=== PATIENT | female | born 1950 | race Caucasian/White ===

== ENCOUNTER 2016-10-23 23:12 | Emergency (ER) | payer MEDICARE ==
--- NOTE | 2016-10-23 23:32 | ER Document Report ---
ED Cardiac - General Chief Complaint: Palpitations Stated Complaint: POSSIBLE HEART PALPITATIONS Notes: Patient is a 66 year old female who presents with complaint of rapid heart rate. She has a history of atrial fibrillation. She takes Cardizem, sotalol, and Xarelto. She's all her medications today except for her evening dose sotalol. She felt like her heart was racing therefore called the ambulance. When the ambulance arrived her rate was in the 160s but slowly started to down trend on its own. No medications given row other than normal saline. She has no fevers. No recent infections. She denies any chest pain. She has slight dizziness. She is feeling improved now compared to what she is feeling earlier. No other complaints at this time. TRAVEL OUTSIDE OF THE [place] IN LAST 30 DAYS: No - Related Data Allergies/Adverse Reactions: Sulfa (Sulfonamide Antibiotics) Allergy (Verified 12/01/14 10:59) RASH Past Medical History - Social History Smoking Status: Unknown if Ever Smoked Frequency of alcohol use: None Drug Abuse: None Family History: Reviewed & Not Pertinent - Past Medical History Cardiac Medical History: Reports: Hx Hypertension Denies: Hx Heart Attack Pulmonary Medical History: Denies: Hx Asthma Neurological Medical History: Denies: Hx Cerebrovascular Accident, Hx Seizures GI Medical History: Reports: Hx Hiatal Hernia. Denies: Hx Hepatitis, Hx Ulcer Infectious Medical History: Denies: Hx Hepatitis Past Surgical History: Reports: Hx Hysterectomy. Denies: Hx Mastectomy, Hx Open Heart Surgery, Hx Pacemaker Review of Systems - Review of Systems Notes: My Normal Review Basic REVIEW OF SYSTEMS: CONSTITUTIONAL : Denies fever, chills, or sweats. Denies recent illness. EENT: Denies eye, ear, throat, or mouth pain or symptoms. Denies nasal or sinus congestion. Cardiac: Rapid heart rate. No chest pain. RESPIRATORY: Denies cough, cold, or chest congestion. Denies shortness of breath, difficulty breathing, or wheezing. GASTROINTESTINAL: Denies abdominal pain. Denies nausea, vomiting, or diarrhea. Denies constipation. Last BM: MUSCULOSKELETAL: Denies neck or back pain or joint pain or swelling. SKIN: Denies rash or skin lesions. NEUROLOGICAL: Denies altered mental status or loss of consciousness. Denies headache. Denies weakness or paralysis or loss of use of either side. Denies problems with gait or speech. Denies sensory or motor loss. ALL OTHER SYSTEMS REVIEWED AND NEGATIVE. Physical Exam - Vital signs Vitals: Resp BP Pulse Ox 17 136/65 H 95 10/23/16 23:38 10/23/16 23:38 10/23/16 23:38 - Notes Notes: General Appearance: Well nourished, alert, cooperative, no acute distress, no obvious discomfort. Well-appearing. Vitals: reviewed, See vital signs table. Head: no swelling or tenderness to the head Eyes: PERRL, EOMI, Conjuctiva clear Mouth: No decreasd moisture Neck: Supple, no neck tenderness, No thyromegaly Lungs: No wheezing, No rales, No rhonci, No accessory muscle use, good air exchange bilaterally. Heart: Rapid rate, irregular rythm, No murmur, no rub Abdomen: Normal BS, soft, No rigidity, No abdominal tenderness, No guarding, no rebound, no abdominal masses, no organomegaly Extremities: strength 5/5 in all extremities, good pulses in all extremities, no swelling or tenderness in the extremities, no edema. Skin: warm, dry, appropriate color, no rash Neuro: speech clear, oriented x 3, normal affect, responds appropriately to questions. Course - Re-evaluation Re-evalutation: 10/23/16 23:32 I gave the patient her dose of sotalol 80 mg and was to 11 PM. 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 10/24/16 01:23 Patient's heart rate is now down to 100. We will continue to monitor and make sure it continues to decrease properly without causing her any complications. - Vital Signs Vital signs: Temp Pulse Resp BP Pulse Ox 17 121/70 94 10/24/16 03:01 10/24/16 03:01 10/24/16 03:01 - Laboratory Result Diagrams: 10/24/16 00:21 10/24/16 00:21 Laboratory results interpreted by me: 10/24/16 10/24/16 00:21 00:21 RDW 21.0 H Carbon Dioxide 21 L Glucose 124 H Creatine Kinase 24 L - EKG Interpretation by Me Additional EKG results interpreted by me: 10/24/16 00:01 EKG is reviewed and interpreted by me. EKG shows A. fib with RVR with rate [address] segment elevation or depression. No ischemic T wave inversions. QRS duration QTC intervals are within normal range. No old EKG available for comparison. 10/24/16 03:50 EKG #2 is reviewed and interpreted by me. EKG shows A. fib with a rate of [address] segment elevation or depression. No ischemic T wave inversions. QRS duration is within normal range. QTC interval is slightly prolonged. - Transfer of Care Notes: 10/24/16 03:59 Patient will be discharged home. Her rate has now been controlled for several hours. Her heart rate is in the 80s to low 90s. She feels well patient's no chest pain. She looks well. Patient encouraged to take her medications as prescribed. Patient encouraged return to ER medially chest chest pain, recurrent fast heart rate, difficulty breathing, or she feels unwell. Patient agrees with plan will be discharged home. Discharge - Discharge Clinical Impression: Atrial fibrillation Qualifiers: Atrial fibrillation type: chronic Qualified Code(s): I48.2 - Chronic atrial fibrillation Condition: Good Disposition: HOME, SELF-CARE Additional Instructions: Please return to ER immediately if you have recurrence of fast heart rate, any chest pain, recurrent dizziness, difficulty breathing, or feel unwell. Please follow up closely with your primary care doctor in the next 2-3 days. Please take your medications as prescribed.
[2016-10-24 00:39] LABS: ABSOLUTE LYMPHOCYTES (AUTO) 1.1 10^3/uL (0.5-4.7); ABSOLUTE MONOCYTES (AUTO) 0.7 10^3/uL (0.1-1.4); ABSOLUTE NEUT (AUTO) 6.4 10^3/uL (1.7-8.2); BASOPHILS % (AUTO) 0.5 % (0-2); EOSINOPHILS % (AUTO) 0.2 % (0-6); HEMATOCRIT 43.1 % (36.0-47.0); HEMOGLOBIN 13.8 g/dL (12.0-15.5); HGB HCT DIFFERENCE -1.7; LYMPHOCYTES % (AUTO) 13.3 % (13-45); MEAN CORPUSCULAR HEMOGLOBIN 28.4 pg (27.0-33.4); MEAN CORPUSCULAR HGB CONC 32.1 g/dL (32.0-36.0); MEAN CORPUSCULAR VOLUME 88 fl (80-97); MONOCYTES % (AUTO) 8.7 % (3-13); RED BLOOD COUNT 4.87 10^6/uL (3.72-5.28); SEGMENTED NEUTROPHILS % (AUTO) 77.3 % (42-78); WHITE BLOOD COUNT 8.3 10^3/uL (4.0-10.5)
[2016-10-24 00:48] LABS: ALANINE AMINOTRANSFERASE 26 U/L (9-52); ALKALINE PHOSPHATASE 70 U/L (38-126); ANION GAP 18 (5-19); ASPARTATE AMINO TRANSFERASE 22 U/L (14-36); BILIRUBIN,TOTAL 0.5 mg/dL (0.2-1.3); BLOOD UREA NITROGEN 9 mg/dL (7-20); CARBON DIOXIDE 21 mmol/L (22-30); CHLORIDE 105 mmol/L (98-107); CREATINE KINASE 24 U/L (30-135); CREATININE RESULT 0.56 mg/dL (0.52-1.25); GLUCOSE 124 mg/dL (75-110); MAGNESIUM 1.8 mg/dL (1.6-2.3); POTASSIUM 3.8 mmol/L (3.6-5.0); SODIUM 143.9 mmol/L (137-145); TOTAL PROTEIN 6.6 g/dL (6.3-8.2)
[2016-10-24 00:59] LABS: CREATINE KINASE MB 0.56 ng/mL (<4.55)
[2016-10-24 01:11] LABS: TROPONIN I 0.035 ng/mL
[2016-10-24] MEDS ORDERED: METOPROLOL TARTRATE PF/INJ 5 MG/5 ML SDV IV ONE ×2 (02:12)
[2016-10-24] MEDS ORDERED: ONDANSETRON HCL INJ/PF 4 MG/2 ML SDV IV ONE (03:18)
[2016-10-24 05:46] VITALS: BP 111/70
--- NOTE | 2016-10-24 08:29 | EKG REPORT ---
SEVERITY:- ABNORMAL ECG - ATRIAL FIBRILLATION BORDERLINE LEFT AXIS DEVIATION : Confirmed by: Vish Farmer MD 24-Oct-2016 08:28:44
--- NOTE | 2016-10-24 08:29 | EKG REPORT ---
SEVERITY:- ABNORMAL ECG - ATRIAL FIBRILLATION, V-RATE 63-128 BORDERLINE LEFT AXIS DEVIATION LOW VOLTAGE IN FRONTAL LEADS DIFFUSE NONSPECIFIC ST-T CHANGES : Confirmed by: Vish Farmer MD 24-Oct-2016 08:28:27
== END 2016-10-24 05:49 | disposition home or self-care (01) ==
LOC: ER 23:12
DX: I48.2 Chronic atrial fibrillation (principal); R00.2 Palpitations; I10 Essential (primary) hypertension; Z79.02 Long term (current) use of antithrombotics/antiplatelets; Z88.2 Allergy status to sulfonamides; Z90.710 Acquired absence of both cervix and uterus
CPT/HCPCS: 93005 ×2; 96376; 99285; 96374; 96375; 36415; 82553; 82550; 83735; 85025; 80053; 84484; 71010; 93010 ×2; J3490; J2405

== ENCOUNTER → 2017-02-26 | Outpatient (CLI) | payer MEDICARE ==
[2017-02-26 14:17] LABS: HEMATOCRIT 43.4 % (36.0-47.0); HGB HCT DIFFERENCE -1.4; MEAN CORPUSCULAR HEMOGLOBIN 29.9 pg (27.0-33.4); MEAN CORPUSCULAR HGB CONC 32.2 g/dL (32.0-36.0); MEAN CORPUSCULAR VOLUME 93 fl (80-97); RED BLOOD COUNT 4.69 10^6/uL (3.72-5.28); RED CELL DISTRIBUTION WIDTH 15.6 % (11.5-14.0); WHITE BLOOD COUNT 5.2 10^3/uL (4.0-10.5)
== END ==
LOC: OD 13:09
PROVIDERS: ATTEND Urology
DX: Z01.812 Encounter for preprocedural laboratory examination (principal); N20.0 Calculus of kidney
CPT/HCPCS: 36415; 85027; 85610; 85730

== ENCOUNTER 2019-08-05 04:43 | Inpatient (IN) | payer MEDICARE, MEDICAID ==
[2019-08-05] MEDS ORDERED: ONDANSETRON HCL INJ/PF 4 MG/2 ML SDV IV ONE (05:00)
[2019-08-05] MEDS ORDERED: ACETAMINOPHEN 325 MG TABLET PO ONE (05:14)
[2019-08-05 05:32] LABS: HEMATOCRIT 39.1 % (36.0-47.0); HEMOGLOBIN 12.7 g/dL (12.0-15.5); MEAN CORPUSCULAR HEMOGLOBIN 28.6 pg (27.0-33.4); MEAN CORPUSCULAR HGB CONC 32.4 g/dL (32.0-36.0); MEAN CORPUSCULAR VOLUME 88 fl (80-97); PLATELET COUNT 184 10^3/uL (150-450); RED BLOOD COUNT 4.43 10^6/uL (3.72-5.28); RED CELL DISTRIBUTION WIDTH 16.3 % (11.5-14.0); WHITE BLOOD COUNT 8.8 10^3/uL (4.0-10.5)
[2019-08-05 05:52] LABS: ABSOLUTE LYMPHOCYTES# (MANUAL) 0.4 10^3/uL (0.5-4.7); ABSOLUTE MONOCYTES # (MANUAL) 0.2 10^3/uL (0.1-1.4); ALBUMIN 3.4 g/dL (3.5-5.0); ALKALINE PHOSPHATASE 72 U/L (38-126); ANION GAP 12 (5-19); ASPARTATE AMINO TRANSFERASE 82 U/L (14-36); BAND NEUTROPHILS % (MANUAL) 4 % (3-5); BASOPHILS % (MANUAL) 0 % (0-2); BILIRUBIN,DIRECT 0.3 mg/dL (0.0-0.4); BILIRUBIN,TOTAL 1.1 mg/dL (0.2-1.3); BLOOD UREA NITROGEN 10 mg/dL (7-20); CALCIUM 9.2 mg/dL (8.4-10.2); CARBON DIOXIDE 28 mmol/L (22-30); CHLORIDE 100 mmol/L (98-107); EOSINOPHILS % (MANUAL) 0 % (0-6); GLUCOSE 85 mg/dL (75-110); LYMPHOCYTES % (MANUAL) 4 % (13-45); MONOCYTES % (MANUAL) 2 % (3-13); POTASSIUM 3.6 mmol/L (3.6-5.0); SEGMENTED NEUTROPHILS % (MAN) 90 % (42-78); TOTAL CELLS COUNTED 100; TOTAL PROTEIN 6.2 g/dL (6.3-8.2)
[2019-08-05 05:53] LABS: ANISOCYTOSIS 1+; PLATELET COMMENT ADEQUATE; TOXIC GRANULATION SLIGHT; TOXIC VACUOLATION PRESENT
[2019-08-05 08:04] LABS: APPEARANCE,URINE SLIGHTLY-CLOUDY; BILIRUBIN,URINE NEGATIVE (NEGATIVE); COLOR,URINE YELLOW; GLUCOSE, URINE NEGATIVE (NEGATIVE); KETONES,URINE TRACE mg/dL (NEGATIVE); LEUKOCYTE ESTERASE,URINE SMALL (NEGATIVE); NITRITE,URINE NEGATIVE (NEGATIVE); PROTEIN,URINE 30 mg/dL (NEGATIVE); URINE SPECIFIC GRAVITY 1.016
--- NOTE | 2019-08-05 09:21 | RADIOLOGY REPORT (SQ) ---
EXAM DESCRIPTION: U/S ABDOMEN LIMITED W/O DOP COMPLETED DATE/TIME: 08/05/2019 8:58 am REASON FOR STUDY: RUQ abd pain COMPARISON: None. TECHNIQUE: Dynamic and static grayscale images acquired of the abdomen and recorded on PACS. Additio nal selected color Doppler and spectral images recorded. LIMITATIONS: Limited exam secondary to body habitus. FINDINGS: PANCREAS: No masses. Visualized pancreatic duct normal caliber. LIVER: No focal lesions. Increased echogenicity with decreased visualization of the portal triads. LIVER VASCULATURE: Normal directional flow of the main portal vein. Hepatic veins not well seen. GALLBLADDER: Cholelithiasis. No wall thickening or pericholecystic fluid. ULTRASOUND-DETECTED ALLRED'S SIGN: Negative. INTRAHEPATIC DUCTS AND COMMON DUCT: CBD measures 11 mm. No visualized intrahepatic ductal dilation. INFERIOR VENA CAVA: Not well seen. AORTA: Not well visualized. RIGHT KIDNEY: Normal size measuring 11.7 cm. There is a exophytic simple cyst off the upper pole me asuring up to 5.3 cm. No solid or suspicious masses. No hydronephrosis. No calcifications. PERITONEAL AND RIGHT PLEURAL SPACE: No ascites or effusions. OTHER: No other significant findings. IMPRESSION: Limited exam secondary to body habitus and bowel gas. 1. Cholelithiasis with dilated CBD measuring up to 11 mm. No definite intrahepatic ductal dilation. Findings suggestive of choledocholithiasis. Recommend correlation with LFTs for evidence of biliar y obstruction. MRCP or ERCP could be considered for further confirmation. 2. Hepatic steatosis. TECHNICAL DOCUMENTATION: JOB ID: [id number] [employer]- All Rights Reserved Reading location - IP/workstation name: [email or web address]
[2019-08-05] MEDS ORDERED: NORMAL SALINE 1000 ML 1,000 ML IV ONE (09:47)
[2019-08-05] MEDS ORDERED: ERTAPENEM SODIUM INJ 1 GM VIAL IV ONE (09:48)
--- NOTE | 2019-08-05 10:16 | ER Document Report ---
Entered by RHYS MARQUEZ SCRIBE 08/05/19 0747 Acting as scribe for:SHIRIN REARDON MD ED General - General Chief Complaint: Back Pain Stated Complaint: BACK PAIN Time Seen by Provider: 08/05/19 06:19 Mode of Arrival: Medic Information source: Patient, [facility] Records Notes: This 69 year old female patient presents to the ED today with complaints of lower abdominal, lower back and, lower extremity pain that began when she woke up this morning. Patient reports that she has nausea. This 69-year-old female patient past medical history chronic A. fib taking Xarelto, Cardizem, and sotalol, has chronic low back pain for which she takes Ultram on an almost daily basis. She woke up this morning with severe pain in her back, thought it was her normal back pain only worse than usual. When first seen by triage this morning she had a temperature of 102.2, she received Tylenol just after 5 AM. I am seeing her at 7:35 AM and she is not febrile at this time. TRAVEL OUTSIDE OF THE [place] IN LAST 30 DAYS: No - Related Data Allergies/Adverse Reactions: Sulfa (Sulfonamide Antibiotics) Allergy (Verified 08/05/19 07:53) RASH Home Medications: lumigan eye drop bid. fioricet 1 tab q 8 hours. clacium with vit d daily. vit d3 1000u daily. cardizem cd 120mg daily. milk thistle 1 cap daily. prilosec 20mg nightly. xarelto 20mg nightly. sotalol 120mg bid. tramadol 50mg q 6 hrs prn Past Medical History - General Information source: Patient, [facility] Records - Social History Smoking Status: Never Smoker Cigarette use (# per day): No Chew tobacco use (# tins/day): No Frequency of alcohol use: 1 drink daily Drug Abuse: None Family History: Reviewed & Not Pertinent Patient has suicidal ideation: No Patient has homicidal ideation: No - Past Medical History Cardiac Medical History: Reports: Hx Atrial Fibrillation, Hx Hypertension GI Medical History: Reports: Hx Hiatal Hernia Past Surgical History: Reports: Hx Herniorrhaphy, Hx Hysterectomy, Hx Kidney (Renal Surgery) - Immunizations Hx Diphtheria, Pertussis, Tetanus Vaccination: Yes Review of Systems - Review of Systems Constitutional: No symptoms reported EENT: No symptoms reported Cardiovascular: No symptoms reported Respiratory: No symptoms reported Gastrointestinal: See HPI, Abdominal pain, Nausea Genitourinary: No symptoms reported Female Genitourinary: No symptoms reported Musculoskeletal: See HPI, Back pain, Other - leg pain Skin: No symptoms reported Hematologic/Lymphatic: No symptoms reported Neurological/Psychological: No symptoms reported -: Yes All other systems reviewed and negative Physical Exam - Vital signs Vitals: Temp Pulse Resp BP Pulse Ox 102.2 F H 95 19 139/82 H 97 08/05/19 04:48 08/05/19 04:48 08/05/19 04:48 08/05/19 04:48 08/05/19 04:48 Interpretation: Normal - General General appearance: Alert - HEENT Head: Normocephalic, Atraumatic Eyes: Normal Pupils: PERRL - Respiratory Respiratory status: No respiratory distress Chest status: Nontender Breath sounds: Normal Chest palpation: Normal - Cardiovascular Rhythm: Regular - sinus rhythm Heart sounds: Normal auscultation Murmur: No - Abdominal Inspection: Obese Distension: No distension Bowel sounds: Normal Tenderness: Tender - RUQ tenderness with palpation Organomegaly: No organomegaly - Back Back: Tender - lumbar back musculature tenderness with palpation, mostly on left side - Extremities General upper extremity: Normal inspection General lower extremity: Edema - chronic edema, pitting 2-3+, Other - erythema, warm temperature with palpation Calf: Nontender - Neurological Neuro grossly intact: Yes Cognition: Normal Orientation: AAOx4 [place] Coma Scale Eye Opening: Spontaneous [place] Coma Scale Verbal: Oriented [place] Coma Scale Motor: Obeys Commands [place] Coma Scale Total: 15 Speech: Normal Motor strength normal: LUE, RUE, LLE, RLE Sensory: Normal - Psychological Associated symptoms: Normal affect, Normal mood - Skin Skin Temperature: Warm Skin Moisture: Dry Skin Color: Normal Course - Re-evaluation Re-evalutation: 08/05/19 10:14 Patient was in a sinus rhythm with a rate of 90 during physical exam. When the decision to admit was made, I ordered an EKG, at this time she is in atrial flutter with a heart rate of 119. - Vital Signs Vital signs: Temp Pulse Resp BP Pulse Ox 98.9 F 95 25 H 107/71 95 08/05/19 06:01 08/05/19 04:48 08/05/19 11:01 08/05/19 11:01 08/05/19 11:01 - Laboratory Result Diagrams: 08/05/19 05:10 08/05/19 05:10 Laboratory results interpreted by me: 08/05/19 08/05/19 08/05/19 05:10 05:10 05:10 RDW 16.3 H Seg Neuts % (Manual) 90 H Lymphocytes % (Manual) 4 L Monocytes % (Manual) 2 L Abs Neuts (Manual) 8.3 H Abs Lymphs (Manual) 0.4 L Creatinine 0.50 L Lactic Acid (Sepsis) 2.9 H AST 82 H Total Protein 6.2 L Albumin 3.4 L Urine Protein Urine Ketones Urine Blood Urine Urobilinogen Ur Leukocyte Esterase Urine Ascorbic Acid 08/05/19 07:43 RDW Seg Neuts % (Manual) Lymphocytes % (Manual) Monocytes % (Manual) Abs Neuts (Manual) Abs Lymphs (Manual) Creatinine Lactic Acid (Sepsis) AST Total Protein Albumin Urine Protein 30 H Urine Ketones TRACE H Urine Blood MODERATE H Urine Urobilinogen 4.0 H Ur Leukocyte Esterase SMALL H Urine Ascorbic Acid 20 H - Diagnostic Test Radiology reviewed: Image reviewed - Gallbladder ultrasound is read as choledocholithiasis with cholecystitis. - EKG Interpretation by Me EKG shows normal: [place], Intervals, QRS Complexes. abnormal: ST-T Waves - Diffuse borderline T abnormalities Rate: Tachycardia - 119 Rhythm: A.Flutter [place]/QRS: Left axis deviation Voltage: Decreased voltage - Consults Dr. Olson Time consulted: 09:40 Consulted provider: will come to ER KHANH Torres Time consulted: 09:45 Consulted provider: will come to ER Discharge - Discharge Clinical Impression: Choledocholithiasis with acute cholecystitis, Atrial flutter with rapid tonya tricular response Leukocytosis Qualifiers: Leukocytosis type: bandemia Qualified Code(s): D72.825 - Bandemia Fever Qualifiers: Fever type: unspecified Qualified Code(s): R50.9 - Fever, unspecified Urinary tract infection Qualifiers: Urinary tract infection type: site unspecified Hematuria presence: with hematuria Qualified Code(s): N39.0 - Urinary tract infection, site not specified; R31.9 - Hematuria, unspecified Condition: Stable Disposition: ADMITTED INPATIENT Admitting Provider: Meseret (Hospitalist) Unit Admitted: Telemetry Scribe Attestation: 08/05/19 08:02 I personally performed the services described in the documentation, reviewed and edited the documentation which was dictated to the scribe in my presence, and it accurately records my words and actions. I personally performed the services described in the documentation, reviewed and edited the documentation which was dictated to the scribe in my presence, and it accurately records my words and actions.
[2019-08-05 10:24] LABS: CREATINE KINASE 39 U/L (30-135)
[2019-08-05] MEDS ORDERED: GLUCAGON,HUMAN RECOMB 1 MG INJ SUBCUT PRN ×2 (10:50→17:29)
[2019-08-05] MEDS ORDERED: DEXTROSE 40% GEL 15 GM TUBE PO PRN ×4 (10:50→17:29)
[2019-08-05] MEDS ORDERED: ONDANSETRON 4 MG TAB.RAPDIS PO PRN (10:50)
[2019-08-05] MEDS ORDERED: DEXTROSE 50%-WATER 25 GM/50 ML DISP.SYRIN IV PRN ×4 (10:50→17:29)
[2019-08-05] MEDS ORDERED: MAGNESIUM HYDROXIDE SUSP 30 ML UDCUP PO PRN (10:50)
--- NOTE | 2019-08-05 10:51 | RADIOLOGY REPORT (SQ) ---
EXAM DESCRIPTION: CHEST SINGLE VIEW COMPLETED DATE/TIME: 08/05/2019 10:31 am REASON FOR STUDY: Fever, acute cholecystitis COMPARISON: 10/21/2009. EXAM PARAMETERS: NUMBER OF VIEWS: One view. TECHNIQUE: Single frontal radiographic view of the chest acquired. RADIATION DOSE: NA LIMITATIONS: None. FINDINGS: LUNGS AND PLEURA: No opacities, masses or pneumothorax. No pleural effusion. MEDIASTINUM AND HILAR STRUCTURES: No masses. Contour normal. HEART AND VASCULAR STRUCTURES: Heart upper limits of normal in size. Normal vasculature. BONES: No acute findings. HARDWARE: None in the chest. OTHER: No other significant finding. IMPRESSION: NO ACUTE RADIOGRAPHIC FINDING IN THE CHEST. TECHNICAL DOCUMENTATION: JOB ID: [id number] [employer]- All Rights Reserved Reading location - IP/workstation name: [email or web address]
--- NOTE | 2019-08-05 10:56 | PDOC CONSULTATION ---
Consultation Consult Date: 08/05/19 Provider Consulted: PAUL MCGRAW Consult reason:: Gallstones History of Present Illness Admission Date/PCP: 08/05/19 10:25 SAMMY URIBE NP History of Present Illness: KAMINI FERNANDEZ is a 69 year old female with history for atrial fibrillation on Xarelto complaining of back pains and right upper quadrant pains around 2 AM today. She went to ED where ultrasound the abdomen is showed gallstones with dilated common bile duct of 11 mm. There is suspicion for choledocholithiasis. She had a previous history of hysterectomy and ventral hernia repair with mesh mesh about 5 years ago at [facility]. We will order an MRCP just to make sure there is no common bile duct stone since an intraoperative cholangiogram may take clinically be difficult because patient being obese and with to abdominal operations with his most likely will have adhesions. Past Medical History Cardiac Medical History: Reports: Atrial Fibrillation, Hypertension Denies: Myocardial Infarction Pulmonary Medical History: Denies: Asthma Neurological Medical History: Denies: Seizures GI Medical History: Reports: Hiatal Hernia Denies: Hepatitis Hematology: Denies: Anemia, Sickle Cell Disease Past Surgical History Past Surgical History: Reports: Herniorrhaphy, Hysterectomy Denies: Amputation, Mastectomy, Pacemaker Social History Smoking Status: Never Smoker Electronic Cigarette use?: No Family History Family History: Reviewed & Not Pertinent Parental Family History Reviewed: Yes Children Family History Reviewed: No Sibling(s) Family History Reviewed.: No Medication/Allergy Home Medications: Besifloxacin HCl [Besivance 0.6% Oph Susp 5 ml] 1 drop OP ASDIR 12/01/14 Calcium Carbonate/Vitamin D3 [Calcium + Vitamin D Tablet] 1 tab PO DAILY 12/01/14 Difluprednate [Durezol] 1 drop OP ASDIR 12/01/14 Diltiazem HCl [Diltiazem 24Hr Cd] 240 mg PO DAILY 12/01/14 Etodolac 400 mg PO DAILY 12/01/14 Losartan Potassium [Cozaar 50 mg Tablet] 50 mg PO DAILY 12/01/14 Nepafenac [Ilevro] 1 drop OP ASDIR PRN 12/01/14 Omeprazole [Prilosec] 20 mg PO DAILY 12/01/14 Tramadol HCl [Ultram] 50 mg PO .Q4-6 PRN 12/01/14 Sotalol HCl [Sotalol] 80 mg PO BID 01/30/15 Allergies/Adverse Reactions: Sulfa (Sulfonamide Antibiotics) Allergy (Verified 08/05/19 07:53) RASH Review of Systems Constitutional: PRESENT: as per HPI, fever(s) Cardiovascular: PRESENT: other - No chest pains no cough Gastrointestinal: PRESENT: abdominal pain, nausea Musculoskeletal: PRESENT: back pain Neurological: PRESENT: other - Walks with cane because she claims her knees are bone to bone complaining of chronic pains and takes Ultram once a day Physical Exam Vital Signs: Temp Pulse Resp BP Pulse Ox 98.9 F 95 13 130/78 H 96 08/05/19 06:01 08/05/19 04:48 08/05/19 10:01 08/05/19 10:01 08/05/19 10:01 Intake & Output 08/04/19 08/05/19 08/06/19 06:59 06:59 06:59 Weight 132.903 kg General appearance: PRESENT: morbidly obese Eye exam: PRESENT: conjunctiva pink Mouth exam: PRESENT: moist Neck exam: PRESENT: full ROM Respiratory exam: PRESENT: clear to auscultation aroldo Cardiovascular exam: PRESENT: irregular rhythm Pulses: PRESENT: normal radial pulses - But irregular Vascular exam: PRESENT: normal capillary refill GI/Abdominal exam: PRESENT: soft, tenderness - Right upper quadrant Rectal exam: PRESENT: deferred Extremities exam: PRESENT: full ROM Musculoskeletal exam: PRESENT: ambulatory - With a cane Neurological exam: PRESENT: alert, oriented to person, oriented to place, oriented to time, oriented to situation Psychiatric exam: PRESENT: appropriate affect Skin exam: PRESENT: normal color, warm Results Laboratory Results: 08/05/19 05:10 08/05/19 05:10 08/05/19 08/05/19 08/05/19 05:10 05:10 05:10 WBC 8.8 RBC 4.43 Hgb 12.7 Hct 39.1 MCV 88 MCH 28.6 MCHC 32.4 RDW 16.3 H Plt Count 184 Seg Neutrophils % Not Reportable Sodium 140.1 Potassium 3.6 Chloride 100 Carbon Dioxide 28 Anion Gap 12 BUN 10 Creatinine 0.50 L Est GFR ( Amer) > 60 Glucose 85 Calcium 9.2 Total Bilirubin 1.1 AST 82 H Alkaline Phosphatase 72 Total Protein 6.2 L Albumin 3.4 L Lipase 56.2 Urine Color Urine Appearance Urine pH Ur Specific Shepherd Urine Protein Urine Glucose (UA) Urine Ketones Urine Blood Urine Nitrite Ur Leukocyte Esterase Urine WBC (Auto) Urine RBC (Auto) 08/05/19 07:43 WBC RBC Hgb Hct MCV MCH MCHC RDW Plt Count Seg Neutrophils % Sodium Potassium Chloride Carbon Dioxide Anion Gap BUN Creatinine Est GFR ( Amer) Glucose Calcium Total Bilirubin AST Alkaline Phosphatase Total Protein Albumin Lipase Urine Color YELLOW Urine Appearance SLIGHTLY-CLOUDY Urine pH 6.0 Ur Specific Shepherd 1.016 Urine Protein 30 H Urine Glucose (UA) NEGATIVE Urine Ketones TRACE H Urine Blood MODERATE H Urine Nitrite NEGATIVE Ur Leukocyte Esterase SMALL H Urine WBC (Auto) 10 Urine RBC (Auto) 3 08/05/19 08/05/19 05:10 05:10 Creatine Kinase 39 Troponin I 0.051 Impressions: Abdomen Ultrasound 08/05/19 07:56 IMPRESSION: Limited exam secondary to body habitus and bowel gas. 1. Cholelithiasis with dilated CBD measuring up to 11 mm. No definite intrahepatic ductal dilation. Findings suggestive of choledocholithiasis. Recommend correlation with LFTs for evidence of biliary obstruction. MRCP or ERCP could be considered for further confirmation. 2. Hepatic steatosis. Assessment & Plan - Diagnosis (1) Fever Qualifiers: Fever type: unspecified Qualified Code(s): R50.9 - Fever, unspecified Is this a current diagnosis for this admission?: Yes - Time Time Spent: 30 to 50 Minutes - Inpatient Certification Medical Necessity: Need for Pain Control, Need for IV Antibiotics, Need for Surg keith - Plan Summary Plan Summary: 69-year-old female with known atrial fibrillation and hypertension on Xarelto with the last dose being last night. Complain of right back and right upper quadrant pains with nausea at around 2 AM today with fever. Her ultrasound showed gallstones with dilated common bile duct of about 11 mm suspicious for choledocholithiasis. Her LFTs are normal. Plans 1 do an MRCP since an intraoperative cholangiogram may be quite difficult to do in this morbidly obese and to abdominal operations.Likely to R/O CBD stone and avoid IOC. 2 hold Xarelto. 3. Need to wait 48 hours prior to laparoscopic cholecystectomy. And therefore will schedule this Friday 4 start IV antibiotics
[2019-08-05 11:26] LABS: INTERNATIONAL RATION (INR) 2.66; PROTHROMBIN TIME 28.9 SEC (11.4-15.4)
[2019-08-05 11:27] LABS: PARTIAL THROMBOPLASTIN TIME 41.8 SEC (23.5-35.8)
[2019-08-05 11:53] LABS: CREATINE KINASE MB 0.73 ng/mL (<4.55); TROPONIN I 0.112 ng/mL
--- NOTE | 2019-08-05 12:22 | RADIOLOGY REPORT (SQ) ---
EXAM DESCRIPTION: MRI ABDOMEN WITHOUT COMPLETED DATE/TIME: 08/05/2019 12:02 pm REASON FOR STUDY: R/O choledocholitiasis COMPARISON: Abdominal ultrasound, 08/05/2019 TECHNIQUE: Noncontrast MRCP. Source and MIP images reviewed. LIMITATIONS: None. FINDINGS: GALLBLADDER: The gallbladder is mildly distended and contains multiple dependent, irregula r gallstones. INTRAHEPATIC DUCTS: Mild intrahepatic biliary ductal dilation. EXTRAHEPATIC DUCTS: The common bile duct is dilated, measuring up to 1.1 cm in caliber. There is an elongated filling defect in the distal common bile duct concerning for one or more calculi, measuring 1.6 cm in length and 0.5 cm in caliber (series 6, image 51). PANCREAS: Generally homogeneous, no gross mass or significant signal alteration. No surrounding infl ammatory changes or fluid. Pancreatic duct is normal. LIVER, SPLEEN, KIDNEYS, ADRENALS: No significant abnormality. VESSELS: No evidence of aneurysm. Grossly appropriate flow voids in the major vascular structures. LUNG BASES: Grossly clear. OTHER: No other significant finding. IMPRESSION: 1. The common bile duct is dilated, measuring up to 1.1 cm in caliber. There is an elong ated filling defect in the distal common bile duct within the pancreatic head concerning for one or m ore calculi, measuring 1.6 cm in length and 0.5 cm in caliber (series 6, image 51). 2. Cholelithiasis with mild distention of the gallbladder. TECHNICAL DOCUMENTATION: JOB ID: [id number] [employer]- All Rights Reserved Reading location - IP/workstation name: [email or web address]
[2019-08-05] MEDS: PIPERACILLIN SODIUM/TAZOBACTAM 3.375 GM in NORMAL SALINE 100 ML IV SCH ×3 (14:11→23:22)
--- NOTE | 2019-08-05 16:46 | PDOC H&P ---
History of Present Illness Admission Date/PCP: 08/05/19 10:25 SAMMY URIBE NP History of Present Illness: KAMINI FERNANDEZ is a 69 year old female acute back pain and acute abdominal pain.. Patient states that she was awakened this morning at 0200 with severe back pain that went to her right upper quadrant abdomen. She tells me that she knows she has had gallstones because she had an ultrasound at [facility] within the last 5 years, she is never seen a surgeon before. She states that she would have 1 or 2 attacks per year of right upper quadrant abdominal pain probably secondary to her gall stone. Last night and this morning however it was much more severe Patient states that she has had nausea but no vomiting. Also last night in the emergency room she had a temperature of 102.2 Patient's past medical history involves chronic atrial fib for which she is on Xarelto Cardizem and sotalol. She also has chronic back pain which she takes Ultram daily. Patient states she had an abdominal hernia repaired about 5 years ago at [facility] in [place]. Patient states she asked the surgeon at that time if he could also address her gallbladder issues. Past Medical History Cardiac Medical History: Reports: Atrial Fibrillation, Hypertension Denies: Myocardial Infarction Pulmonary Medical History: Denies: Asthma Neurological Medical History: Denies: Seizures GI Medical History: Reports: Hiatal Hernia Denies: Hepatitis Hematology: Denies: Anemia, Sickle Cell Disease Past Surgical History Past Surgical History: Reports: Herniorrhaphy, Hysterectomy Denies: Amputation, Mastectomy, Pacemaker Social History Smoking Status: Never Smoker Electronic Cigarette use?: No - Advance Directive Resuscitation Status: Full Code Family History Family History: Reviewed & Not Pertinent Parental Family History Reviewed: No Children Family History Reviewed: No Sibling(s) Family History Reviewed.: No Medication/Allergy Home Medications: Besifloxacin HCl [Besivance 0.6% Oph Susp 5 ml] 1 drop OP ASDIR 12/01/14 Calcium Carbonate/Vitamin D3 [Calcium + Vitamin D Tablet] 1 tab PO DAILY 12/01/14 Difluprednate [Durezol] 1 drop OP ASDIR 12/01/14 Diltiazem HCl [Diltiazem 24Hr Cd] 240 mg PO DAILY 12/01/14 Etodolac 400 mg PO DAILY 12/01/14 Losartan Potassium [Cozaar 50 mg Tablet] 50 mg PO DAILY 12/01/14 Nepafenac [Ilevro] 1 drop OP ASDIR PRN 12/01/14 Omeprazole [Prilosec] 20 mg PO DAILY 12/01/14 Tramadol HCl [Ultram] 50 mg PO .Q4-6 PRN 12/01/14 Sotalol HCl [Sotalol] 80 mg PO BID 01/30/15 Allergies/Adverse Reactions: Sulfa (Sulfonamide Antibiotics) Allergy (Verified 08/05/19 07:53) RASH Review of Systems Constitutional: ABSENT: chills, fever(s), headache(s), weight gain, weight loss Cardiovascular: ABSENT: chest pain, dyspnea on exertion, edema, orthropnea, palpitations Respiratory: ABSENT: cough, hemoptysis Gastrointestinal: PRESENT: abdominal pain, nausea Neurological: ABSENT: abnormal gait, abnormal speech, confusion, dizziness, focal weakness, syncope Psychiatric: ABSENT: anxiety, depression, homidical ideation, suicidal ideation Physical Exam Vital Signs: Temp Pulse Resp BP Pulse Ox 98.7 F 82 20 106/69 95 08/05/19 12:47 08/05/19 12:47 08/05/19 12:47 08/05/19 12:47 08/05/19 12:47 Intake & Output 08/04/19 08/05/19 08/06/19 06:59 06:59 06:59 Intake Total 63 Balance 63 Weight 132.903 kg 131.9 kg General appearance: PRESENT: mild distress, other - Can Adria to abdominal pain Respiratory exam: PRESENT: clear to auscultation aroldo. ABSENT: rales, rhonchi, wheezes Cardiovascular exam: PRESENT: RRR. ABSENT: diastolic murmur, rubs, systolic murmur GI/Abdominal exam: PRESENT: diminished bowel sounds, soft, tenderness - Right upper quadrant of the abdomen and epigastric region Neurological exam: PRESENT: alert, awake, oriented to person, oriented to place, oriented to time, oriented to situation, CN II-XII grossly intact. ABSENT: motor sensory deficit Psychiatric exam: PRESENT: appropriate affect, normal mood. ABSENT: homicidal ideation, suicidal ideation Results Laboratory Results: 08/05/19 05:10 08/05/19 05:10 08/05/19 08/05/19 08/05/19 05:10 05:10 05:10 WBC 8.8 RBC 4.43 Hgb 12.7 Hct 39.1 MCV 88 MCH 28.6 MCHC 32.4 RDW 16.3 H Plt Count 184 Seg Neutrophils % Not Reportable Sodium 140.1 Potassium 3.6 Chloride 100 Carbon Dioxide 28 Anion Gap 12 BUN 10 Creatinine 0.50 L Est GFR ( Amer) > 60 Glucose 85 Lactic Acid Calcium 9.2 Magnesium Total Bilirubin 1.1 AST 82 H Alkaline Phosphatase 72 Total Protein 6.2 L Albumin 3.4 L Lipase 56.2 TSH Urine Color Urine Appearance Urine pH Ur Specific [place] Urine Protein Urine Glucose (UA) Urine Ketones Urine Blood Urine Nitrite Ur Leukocyte Esterase Urine WBC (Auto) Urine RBC (Auto) 08/05/19 08/05/19 08/05/19 07:43 10:59 10:59 WBC RBC Hgb Hct MCV MCH MCHC RDW Plt Count Seg Neutrophils % Sodium Potassium Chloride Carbon Dioxide Anion Gap BUN Creatinine Est GFR ( Amer) Glucose Lactic Acid 1.2 Calcium Magnesium Total Bilirubin AST Alkaline Phosphatase Total Protein Albumin Lipase TSH 1.69 Urine Color YELLOW Urine Appearance SLIGHTLY-CLOUDY Urine pH 6.0 Ur Specific [place] 1.016 Urine Protein 30 H Urine Glucose (UA) NEGATIVE Urine Ketones TRACE H Urine Blood MODERATE H Urine Nitrite NEGATIVE Ur Leukocyte Esterase SMALL H Urine WBC (Auto) 10 Urine RBC (Auto) 3 08/05/19 10:59 WBC RBC Hgb Hct MCV MCH MCHC RDW Plt Count Seg Neutrophils % Sodium Potassium Chloride Carbon Dioxide Anion Gap BUN Creatinine Est GFR ( Amer) Glucose Lactic Acid Calcium Magnesium 1.5 L Total Bilirubin AST Alkaline Phosphatase Total Protein Albumin Lipase TSH Urine Color Urine Appearance Urine pH Ur Specific [place] Urine Protein Urine Glucose (UA) Urine Ketones Urine Blood Urine Nitrite Ur Leukocyte Esterase Urine WBC (Auto) Urine RBC (Auto) 08/05/19 08/05/19 08/05/19 05:10 05:10 10:59 Creatine Kinase 39 CK-MB (CK-2) 0.73 Troponin I 0.051 0.112 Impressions: Abdomen MRI 08/05/19 00:00 IMPRESSION: 1. The common bile duct is dilated, measuring up to 1.1 cm in caliber. There is an elongated filling defect in the distal common bile duct within the pancreatic head concerning for one or more calculi, measuring 1.6 cm in length and 0.5 cm in caliber (series 6, image 51). 2. Cholelithiasis with mild distention of the gallbladder. Abdomen Ultrasound 08/05/19 07:56 IMPRESSION: Limited exam secondary to body habitus and bowel gas. 1. Cholelithiasis with dilated CBD measuring up to 11 mm. No definite intrahepatic ductal dilation. Findings suggestive of choledocholithiasis. Recommend correlation with LFTs for evidence of biliary obstruction. MRCP or ERCP could be considered for further confirmation. 2. Hepatic steatosis. Chest X-Ray 08/05/19 09:57 IMPRESSION: NO ACUTE RADIOGRAPHIC FINDING IN THE CHEST. Assessment and Plan - Diagnosis (1) Abdominal pain Is this a current diagnosis for this admission?: Yes (2) Obesity Is this a current diagnosis for this admission?: Yes (3) Chronic low back pain Is this a current diagnosis for this admission?: Yes (4) Atrial flutter with rapid ventricular response Is this a current diagnosis for this admission?: Yes (5) Calculus of common bile duct with acute cholecystitis Is this a current diagnosis for this admission?: Yes (6) Fever Qualifiers: Fever type: unspecified Qualified Code(s): R50.9 - Fever, unspecified Is this a current diagnosis for this admission?: Yes - Plan Summary Summary: 08/05/2019 She has been seen by general surgery and feels that a MRCP needs to be done. We will also hold her Xarelto since she is a surgical candidate, was 48 hours. The antibiotics will be given. Patient's chronic atrial fib/flutter will be controlled. I explained all this to the patient. Diet will be regulated by general surgery. She is medically stable to transfer to the floor - Time Time Spent with patient: 35 or more minutes
--- NOTE | 2019-08-05 17:00 | EKG REPORT ---
SEVERITY:- ABNORMAL ECG - ATRIAL FLUTTER, A-RATE 294 BORDERLINE LEFT AXIS DEVIATION LOW VOLTAGE IN FRONTAL LEADS BORDERLINE T ABNORMALITIES, DIFFUSE LEADS : Confirmed by: Vish Farmer MD 05-Aug-2019 16:59:23
[2019-08-05 17:30] LABS: CREATINE KINASE MB 1.07 ng/mL (<4.55); TROPONIN I 0.062 ng/mL
--- NOTE | 2019-08-05 17:37 | PDOC PROGRESS REPORT ---
Subjective Progress Note for:: 08/05/19 Reason For Visit: ABDOMINAL PAIN,CHRONIC AFIB,CHOLEDOCHOLITHIASIS Physical Exam Vital Signs: Temp Pulse Resp BP Pulse Ox 98.4 F 69 18 117/60 95 08/05/19 14:50 08/05/19 14:50 08/05/19 14:50 08/05/19 14:50 08/05/19 14:50 Intake & Output 08/04/19 08/05/19 08/06/19 06:59 06:59 06:59 Intake Total 163 Balance 163 Weight 132.903 kg 131.9 kg Exam: Tenderness of the right upper quadrant Results Laboratory Results: 08/05/19 05:10 08/05/19 05:10 08/05/19 08/05/19 08/05/19 05:10 05:10 05:10 WBC 8.8 RBC 4.43 Hgb 12.7 Hct 39.1 MCV 88 MCH 28.6 MCHC 32.4 RDW 16.3 H Plt Count 184 Seg Neutrophils % Not Reportable Sodium 140.1 Potassium 3.6 Chloride 100 Carbon Dioxide 28 Anion Gap 12 BUN 10 Creatinine 0.50 L Est GFR ( Amer) > 60 Glucose 85 Lactic Acid Calcium 9.2 Magnesium Total Bilirubin 1.1 AST 82 H Alkaline Phosphatase 72 Total Protein 6.2 L Albumin 3.4 L Lipase 56.2 TSH Urine Color Urine Appearance Urine pH Ur Specific [place] Urine Protein Urine Glucose (UA) Urine Ketones Urine Blood Urine Nitrite Ur Leukocyte Esterase Urine WBC (Auto) Urine RBC (Auto) 08/05/19 08/05/19 08/05/19 07:43 10:59 10:59 WBC RBC Hgb Hct MCV MCH MCHC RDW Plt Count Seg Neutrophils % Sodium Potassium Chloride Carbon Dioxide Anion Gap BUN Creatinine Est GFR ( Amer) Glucose Lactic Acid 1.2 Calcium Magnesium Total Bilirubin AST Alkaline Phosphatase Total Protein Albumin Lipase TSH 1.69 Urine Color YELLOW Urine Appearance SLIGHTLY-CLOUDY Urine pH 6.0 Ur Specific [place] 1.016 Urine Protein 30 H Urine Glucose (UA) NEGATIVE Urine Ketones TRACE H Urine Blood MODERATE H Urine Nitrite NEGATIVE Ur Leukocyte Esterase SMALL H Urine WBC (Auto) 10 Urine RBC (Auto) 3 08/05/19 10:59 WBC RBC Hgb Hct MCV MCH MCHC RDW Plt Count Seg Neutrophils % Sodium Potassium Chloride Carbon Dioxide Anion Gap BUN Creatinine Est GFR ( Amer) Glucose Lactic Acid Calcium Magnesium 1.5 L Total Bilirubin AST Alkaline Phosphatase Total Protein Albumin Lipase TSH Urine Color Urine Appearance Urine pH Ur Specific [place] Urine Protein Urine Glucose (UA) Urine Ketones Urine Blood Urine Nitrite Ur Leukocyte Esterase Urine WBC (Auto) Urine RBC (Auto) 08/05/19 08/05/19 08/05/19 05:10 05:10 10:59 Creatine Kinase 39 CK-MB (CK-2) 0.73 Troponin I 0.051 0.112 Impressions: Abdomen MRI 08/05/19 00:00 IMPRESSION: 1. The common bile duct is dilated, measuring up to 1.1 cm in caliber. There is an elongated filling defect in the distal common bile duct within the pancreatic head concerning for one or more calculi, measuring 1.6 cm in length and 0.5 cm in caliber (series 6, image 51). 2. Cholelithiasis with mild distention of the gallbladder. Abdomen Ultrasound 08/05/19 07:56 IMPRESSION: Limited exam secondary to body habitus and bowel gas. 1. Cholelithiasis with dilated CBD measuring up to 11 mm. No definite intrahepatic ductal dilation. Findings suggestive of choledocholithiasis. Recommend correlation with LFTs for evidence of biliary obstruction. MRCP or ERCP could be considered for further confirmation. 2. Hepatic steatosis. Chest X-Ray 08/05/19 09:57 IMPRESSION: NO ACUTE RADIOGRAPHIC FINDING IN THE CHEST. Assessment & Plan - Diagnosis (1) Fever Qualifiers: Fever type: unspecified Qualified Code(s): R50.9 - Fever, unspecified Is this a current diagnosis for this admission?: Yes (2) Cholelithiasis Is this a current diagnosis for this admission?: Yes (3) Choledocholithiasis Is this a current diagnosis for this admission?: Yes - Time Time Spent with patient: 15-24 minutes - Inpatient Certification Medical Necessity: Need For IV Fluids, Need for IV Antibiotics, Need for Surgery, Risk of Complication if Not Cared For in Hospital - Plan Summary Plan Summary: Just had an MRCP which showed common bile duct stones. Have called Dr. Guerra for ERCP tomorrow. We will keep her n.p.o. from midnight tonight and will check CMP, PT/INR and lipase in a.m. Continue IV antibiotics and hold Xarelto We will schedule lap [place] after ERCP
[2019-08-05] MEDS ORDERED: (PENDING PHARMACY ID) (Sotalol Hcl [Betapace] 120 MG) PO SCH (18:15)
[2019-08-05] MEDS ORDERED: (PENDING PHARMACY ID) (Bimatoprost [Lumigan 0.01% Oph Soln 2.5 Ml/Bottle] 1 DROP) OU SCH (18:15)
[2019-08-05] MEDS: TRAMADOL HCL 50 MG TABLET PO PRN (19:01)
[2019-08-05] MEDS: DILTIAZEM HCL 120 MG CAP.SR.24H PO SCH (21:29)
[2019-08-05] MEDS: FAMOTIDINE INJ/PF 20 MG/2 ML SDV IV SCH (21:30)
[2019-08-05] MEDS: SOTALOL HCL 80 MG TABLET PO SCH (21:32)
[2019-08-05] MEDS: LATANOPROST 0.005% OPH SOLN 2.5 ML OU SCH (21:32)
[2019-08-05] MEDS: NORMAL SALINE 1000 ML 1,000 ML IV PRN (23:26)
[2019-08-06] MEDS: ONDANSETRON HCL INJ/PF 4 MG/2 ML SDV IV PRN (04:22)
[2019-08-06] MEDS: PIPERACILLIN SODIUM/TAZOBACTAM 3.375 GM in NORMAL SALINE 100 ML IV SCH ×4 (05:33→23:45)
[2019-08-06 06:11] LABS: INTERNATIONAL RATION (INR) 1.41; PROTHROMBIN TIME 17.4 SEC (11.4-15.4)
[2019-08-06 06:12] LABS: PARTIAL THROMBOPLASTIN TIME 39.9 SEC (23.5-35.8)
[2019-08-06 06:13] LABS: ABSOLUTE EOSINOPHILS # (AUTO) 0.1 10^3/uL (0.0-0.6); ABSOLUTE LYMPHOCYTES (AUTO) 0.5 10^3/uL (0.5-4.7); ABSOLUTE MONOCYTES (AUTO) 0.7 10^3/uL (0.1-1.4); ABSOLUTE NEUT (AUTO) 4.2 10^3/uL (1.7-8.2); BASOPHILS % (AUTO) 0.7 % (0-2); HEMATOCRIT 34.8 % (36.0-47.0); HEMOGLOBIN 11.2 g/dL (12.0-15.5); MEAN CORPUSCULAR HEMOGLOBIN 28.2 pg (27.0-33.4); MEAN CORPUSCULAR HGB CONC 32.2 g/dL (32.0-36.0); MEAN CORPUSCULAR VOLUME 88 fl (80-97); MONOCYTES % (AUTO) 12.8 % (3-13); PLATELET COUNT 144 10^3/uL (150-450); RED BLOOD COUNT 3.98 10^6/uL (3.72-5.28); RED CELL DISTRIBUTION WIDTH 16.4 % (11.5-14.0); SEGMENTED NEUTROPHILS % (AUTO) 76.5 % (42-78); TOTAL CELLS COUNTED % (AUTO) 100 %; WHITE BLOOD COUNT 5.5 10^3/uL (4.0-10.5)
[2019-08-06 06:34] LABS: ANION GAP 6 (5-19); BLOOD UREA NITROGEN 11 mg/dL (7-20); CALCIUM 8.2 mg/dL (8.4-10.2); CARBON DIOXIDE 29 mmol/L (22-30); CHLORIDE 104 mmol/L (98-107); GLUCOSE 79 mg/dL (75-110)
--- NOTE | 2019-08-06 06:46 | EKG REPORT ---
SEVERITY:- ABNORMAL ECG - SINUS RHYTHM LOW VOLTAGE THROUGHOUT : Confirmed by: Vish Farmer MD 06-Aug-2019 06:45:25
[2019-08-06] MEDS: TRAMADOL HCL 50 MG TABLET PO PRN (08:21)
[2019-08-06] MEDS: MORPHINE SULFATE 10 MG/ML INJ IV PRN ×2 (09:17→20:54)
[2019-08-06] MEDS: DILTIAZEM HCL 120 MG CAP.SR.24H PO SCH (09:17)
[2019-08-06] MEDS: FAMOTIDINE INJ/PF 20 MG/2 ML SDV IV SCH ×2 (09:17→22:03)
[2019-08-06] MEDS: SOTALOL HCL 80 MG TABLET PO SCH ×2 (09:17→22:03)
[2019-08-06] MEDS: LATANOPROST 0.005% OPH SOLN 2.5 ML OU SCH ×2 (09:18→22:04)
[2019-08-06] MEDS: DOCUSATE SODIUM 100 MG CAPSULE PO SCH (09:22)
--- NOTE | 2019-08-06 13:26 | PDOC PROGRESS REPORT ---
Subjective Progress Note for:: 08/06/19 Reason For Visit: ABDOMINAL PAIN,CHRONIC AFIB,CHOLEDOCHOLITHIASIS 08/06/2019 Acute gallbladder disease Physical Exam Vital Signs: Temp Pulse Resp BP Pulse Ox 98.3 F 78 20 132/76 H 94 08/06/19 12:00 08/06/19 12:00 08/06/19 12:00 08/06/19 12:00 08/06/19 12:00 Intake & Output 08/05/19 08/06/19 08/07/19 06:59 06:59 06:59 Intake Total 2140 Output Total 0 Balance 2140 Weight 132.903 kg 135.9 kg General appearance: PRESENT: mild distress - Complaining of back pain and abdominal pain No vomiting Respiratory exam: PRESENT: clear to auscultation aroldo. ABSENT: rales, rhonchi, wheezes Cardiovascular exam: PRESENT: RRR. ABSENT: diastolic murmur, rubs, systolic murmur Neurological exam: PRESENT: alert, awake, oriented to person, oriented to place, oriented to time, oriented to situation, CN II-XII grossly intact. ABSENT: motor sensory deficit Psychiatric exam: PRESENT: appropriate affect, normal mood. ABSENT: homicidal ideation, suicidal ideation Results Laboratory Results: 08/06/19 05:30 08/06/19 05:30 08/06/19 08/06/19 05:30 05:30 WBC 5.5 RBC 3.98 Hgb 11.2 L Hct 34.8 L MCV 88 MCH 28.2 MCHC 32.2 RDW 16.4 H Plt Count 144 L Seg Neutrophils % 76.5 Sodium 139.3 Potassium 4.0 Chloride 104 Carbon Dioxide 29 Anion Gap 6 BUN 11 Creatinine 0.54 Est GFR ( Amer) > 60 Glucose 79 Calcium 8.2 L Lipase 27.2 08/05/19 05:10 Blood Blood Culture (PCR) - Final Escherichia Coli 08/05/19 08/05/19 08/05/19 05:10 05:10 10:59 Creatine Kinase 39 CK-MB (CK-2) 0.73 Troponin I 0.051 0.112 08/05/19 16:43 Creatine Kinase CK-MB (CK-2) 1.07 Troponin I 0.062 Impressions: Abdomen MRI 08/05/19 00:00 IMPRESSION: 1. The common bile duct is dilated, measuring up to 1.1 cm in caliber. There is an elongated filling defect in the distal common bile duct within the pancreatic head concerning for one or more calculi, measuring 1.6 cm in length and 0.5 cm in caliber (series 6, image 51). 2. Cholelithiasis with mild distention of the gallbladder. Abdomen Ultrasound 08/05/19 07:56 IMPRESSION: Limited exam secondary to body habitus and bowel gas. 1. Cholelithiasis with dilated CBD measuring up to 11 mm. No definite intrahepatic ductal dilation. Findings suggestive of choledocholithiasis. Recommend correlation with LFTs for evidence of biliary obstruction. MRCP or ERCP could be considered for further confirmation. 2. Hepatic steatosis. Chest X-Ray 08/05/19 09:57 IMPRESSION: NO ACUTE RADIOGRAPHIC FINDING IN THE CHEST. Assessment and Plan - Diagnosis (1) Abdominal pain Is this a current diagnosis for this admission?: Yes (2) Obesity Is this a current diagnosis for this admission?: Yes (3) Chronic low back pain Is this a current diagnosis for this admission?: Yes (4) Atrial flutter with rapid ventricular response Is this a current diagnosis for this admission?: Yes (5) Calculus of common bile duct with acute cholecystitis Is this a current diagnosis for this admission?: Yes (6) Fever Qualifiers: Fever type: unspecified Qualified Code(s): R50.9 - Fever, unspecified Is this a current diagnosis for this admission?: Yes - Plan Summary Summary: 08/05/2019 She has been seen by general surgery and feels that a MRCP needs to be done. We will also hold her Xarelto since she is a surgical candidate, was 48 hours. The antibiotics will be given. Patient's chronic atrial fib/flutter will be controlled. I explained all this to the patient. Diet will be regulated by general surgery. She is medically stable to transfer to the floor 08/06/2019 98 3, blood pressure 132/76, pulse 76, O2 sat 94% on room air Count today 5500 INR is down to 1.4 Electrolytes are normal Can you pain medicine, patient is currently n.p.o., anticipate surgery tomorrow - Time Time Spent with patient: 25-34 minutes
--- NOTE | 2019-08-06 14:20 | PDOC PROGRESS REPORT ---
Subjective Progress Note for:: 08/06/19 Subjective:: still with RUQ pains but less Reason For Visit: ABDOMINAL PAIN,CHRONIC AFIB,CHOLEDOCHOLITHIASIS Physical Exam Vital Signs: Temp Pulse Resp BP Pulse Ox 98.3 F 78 20 132/76 H 94 08/06/19 12:00 08/06/19 12:00 08/06/19 12:00 08/06/19 12:00 08/06/19 12:00 Intake & Output 08/05/19 08/06/19 08/07/19 06:59 06:59 06:59 Intake Total 2140 100 Output Total 0 Balance 2140 100 Weight 132.903 kg 135.9 kg Exam: mild RUQ tenderness Results Laboratory Results: 08/06/19 05:30 08/06/19 05:30 08/06/19 08/06/19 05:30 05:30 WBC 5.5 RBC 3.98 Hgb 11.2 L Hct 34.8 L MCV 88 MCH 28.2 MCHC 32.2 RDW 16.4 H Plt Count 144 L Seg Neutrophils % 76.5 Sodium 139.3 Potassium 4.0 Chloride 104 Carbon Dioxide 29 Anion Gap 6 BUN 11 Creatinine 0.54 Est GFR ( Amer) > 60 Glucose 79 Calcium 8.2 L Lipase 27.2 08/05/19 05:10 Blood Blood Culture (PCR) - Final Escherichia Coli 08/05/19 08/05/19 08/05/19 05:10 05:10 10:59 Creatine Kinase 39 CK-MB (CK-2) 0.73 Troponin I 0.051 0.112 08/05/19 16:43 Creatine Kinase CK-MB (CK-2) 1.07 Troponin I 0.062 Impressions: Abdomen MRI 08/05/19 00:00 IMPRESSION: 1. The common bile duct is dilated, measuring up to 1.1 cm in nat iber. There is an elongated filling defect in the distal common bile duct within the pancreatic head concerning for one or more calculi, measuring 1.6 cm in length and 0.5 cm in caliber (series 6, image 51). 2. Cholelithiasis with mild distention of the gallbladder. Abdomen Ultrasound 08/05/19 07:56 IMPRESSION: Limited exam secondary to body habitus and bowel gas. 1. Cholelithiasis with dilated CBD measuring up to 11 mm. No definite intrahepatic ductal dilation. Findings suggestive of choledocholithiasis. Recommend correlation with LFTs for evidence of biliary obstruction. MRCP or ERCP could be considered for further confirmation. 2. Hepatic steatosis. Chest X-Ray 08/05/19 09:57 IMPRESSION: NO ACUTE RADIOGRAPHIC FINDING IN THE CHEST. Assessment & Plan - Diagnosis (1) Fever Qualifiers: Fever type: unspecified Qualified Code(s): R50.9 - Fever, unspecified Is this a current diagnosis for this admission?: Yes (2) Cholelithiasis Is this a current diagnosis for this admission?: Yes (3) Choledocholithiasis Is this a current diagnosis for this admission?: Yes - Time Time Spent with patient: 15-24 minutes - Inpatient Certification Medical Necessity: Need For IV Fluids, Need for IV Antibiotics, Need for Surgery, Risk of Complication if Not Cared For in Hospital - Plan Summary Plan Summary: Assessment Coags still abnormal.D/W Dr Jacques. Plan: For Possible ERCP Friday. Will repeat Coag studies then Start Full liquids low fat NPO Friday Continue IV antibiotics
[2019-08-07] MEDS: PIPERACILLIN SODIUM/TAZOBACTAM 3.375 GM in NORMAL SALINE 100 ML IV SCH ×4 (06:05→23:12)
[2019-08-07] MEDS: NORMAL SALINE 1000 ML 1,000 ML IV PRN ×2 (06:07→23:13)
[2019-08-07] MEDS: SOTALOL HCL 80 MG TABLET PO SCH ×2 (09:49→22:02)
[2019-08-07] MEDS: DOCUSATE SODIUM 100 MG CAPSULE PO SCH (09:50)
[2019-08-07] MEDS: DILTIAZEM HCL 120 MG CAP.SR.24H PO SCH (09:50)
[2019-08-07] MEDS: LATANOPROST 0.005% OPH SOLN 2.5 ML OU SCH ×2 (09:51→22:01)
[2019-08-07] MEDS: FAMOTIDINE INJ/PF 20 MG/2 ML SDV IV SCH ×2 (09:51→22:03)
--- NOTE | 2019-08-07 12:10 | PDOC PROGRESS REPORT ---
Subjective Progress Note for:: 08/07/19 Reason For Visit: ABDOMINAL PAIN,CHRONIC AFIB,CHOLEDOCHOLITHIASIS 08/07/2019 Choledocholithiasis, chronic A. fib Physical Exam Vital Signs: Temp Pulse Resp BP Pulse Ox 98.5 F 77 24 H 127/74 H 92 08/07/19 08:24 08/07/19 08:24 08/07/19 08:24 08/07/19 08:24 08/07/19 08:24 Intake & Output 08/06/19 08/07/19 08/08/19 06:59 06:59 06:59 Intake Total 2139 2055 100 Output Total 0 Balance 2139 2055 100 Weight 135.9 kg 132.8 kg General appearance: PRESENT: no acute distress Respiratory exam: PRESENT: clear to auscultation aroldo. ABSENT: rales, rhonchi, wheezes Cardiovascular exam: PRESENT: RRR. ABSENT: diastolic murmur, rubs, systolic murmur GI/Abdominal exam: PRESENT: soft, tenderness Neurological exam: PRESENT: alert, awake, oriented to person, oriented to place, oriented to time, oriented to situation, CN II-XII grossly intact. ABSENT: motor sensory deficit Psychiatric exam: PRESENT: appropriate affect, normal mood. ABSENT: homicidal ideation, suicidal ideation Results Laboratory Results: 08/06/19 05:30 08/06/19 05:30 08/05/19 07:43 Clean Catch Midstream Urine Culture - Final Escherichia Coli Escherichia Coli#2 08/05/19 05:10 Blood Blood Culture (PCR) - Final Escherichia Coli 08/05/19 05:10 Blood Blood Culture - Final Escherichia Coli 08/05/19 08/05/19 08/05/19 05:10 05:10 10:59 Creatine Kinase 39 CK-MB (CK-2) 0.73 Troponin I 0.051 0.112 08/05/19 16:43 Creatine Kinase CK-MB (CK-2) 1.07 Troponin I 0.062 Impressions: Abdomen MRI 08/05/19 00:00 IMPRESSION: 1. The common bile duct is dilated, measuring up to 1.1 cm in caliber. There is an elongated filling defect in the distal common bile duct within the pancreatic head concerning for one or more calculi, measuring 1.6 cm in length and 0.5 cm in caliber (series 6, image 51). 2. Cholelithiasis with mild distention of the gallbladder. Abdomen Ultrasound 08/05/19 07:56 IMPRESSION: Limited exam secondary to body habitus and bowel gas. 1. Cholelithiasis with dilated CBD measuring up to 11 mm. No definite intrahepatic ductal dilation. Findings suggestive of choledocholithiasis. R ecommend correlation with LFTs for evidence of biliary obstruction. MRCP or ERCP could be considered for further confirmation. 2. Hepatic steatosis. Chest X-Ray 08/05/19 09:57 IMPRESSION: NO ACUTE RADIOGRAPHIC FINDING IN THE CHEST. Assessment and Plan - Diagnosis (1) Abdominal pain Is this a current diagnosis for this admission?: Yes (2) Obesity Is this a current diagnosis for this admission?: Yes (3) Chronic low back pain Is this a current diagnosis for this admission?: Yes (4) Atrial flutter with rapid ventricular response Is this a current diagnosis for this admission?: Yes (5) Calculus of common bile duct with acute cholecystitis Is this a current diagnosis for this admission?: Yes (6) Fever Qualifiers: Fever type: unspecified Qualified Code(s): R50.9 - Fever, unspecified Is this a current diagnosis for this admission?: Yes - Plan Summary Summary: 08/05/2019 She has been seen by general surgery and feels that a MRCP needs to be done. We will also hold her Xarelto since she is a surgical candidate, was 48 hours. The antibiotics will be given. Patient's chronic atrial fib/flutter will be controlled. I explained all this to the patient. Diet will be regulated by general surgery. She is medically stable to transfer to the floor 08/06/2019 98 3, blood pressure 132/76, pulse 76, O2 sat 94% on room air White blood cell count today 5500 INR is down to 1.4 Electrolytes are normal Continue pain medicine, patient is currently n.p.o., anticipate surgery tomorrow 08/07/2019 She is up and ambulatory to the bathroom by herself Temperature 98.2, pulse 69, blood pressure 127/54, oxygen saturation 93% on room air Patient is growing out E. coli in her blood as well as her urine It does appear to be sensitive to her Zosyn that she is on I am going to recheck labs again this afternoon, DC her heparin night at midnight, in p.o. tonight at midnight recheck labs at 0600 tomorrow - Time Time Spent with patient: 25-34 minutes
[2019-08-07] MEDS: ONDANSETRON 4 MG TAB.RAPDIS PO PRN (12:31)
[2019-08-07 13:54] LABS: ANION GAP 12 (5-19); BLOOD UREA NITROGEN 4 mg/dL (7-20); CALCIUM 8.8 mg/dL (8.4-10.2); CARBON DIOXIDE 29 mmol/L (22-30); CHLORIDE 102 mmol/L (98-107); GLUCOSE 87 mg/dL (75-110); POTASSIUM 3.9 mmol/L (3.6-5.0)
[2019-08-07 13:58] LABS: INTERNATIONAL RATION (INR) 1.05; PROTHROMBIN TIME 13.7 SEC (11.4-15.4)
[2019-08-07 13:59] LABS: ABSOLUTE LYMPHOCYTES (AUTO) 0.6 10^3/uL (0.5-4.7); ABSOLUTE MONOCYTES (AUTO) 0.8 10^3/uL (0.1-1.4); ABSOLUTE NEUT (AUTO) 3.1 10^3/uL (1.7-8.2); BASOPHILS % (AUTO) 0.8 % (0-2); EOSINOPHILS % (AUTO) 0.9 % (0-6); HEMATOCRIT 37.7 % (36.0-47.0); HEMOGLOBIN 12.2 g/dL (12.0-15.5); LYMPHOCYTES % (AUTO) 13.7 % (13-45); MEAN CORPUSCULAR HEMOGLOBIN 28.6 pg (27.0-33.4); MEAN CORPUSCULAR HGB CONC 32.3 g/dL (32.0-36.0); MEAN CORPUSCULAR VOLUME 89 fl (80-97); MONOCYTES % (AUTO) 17.9 % (3-13); PARTIAL THROMBOPLASTIN TIME 32.8 SEC (23.5-35.8); PLATELET COUNT 147 10^3/uL (150-450); RED BLOOD COUNT 4.26 10^6/uL (3.72-5.28); RED CELL DISTRIBUTION WIDTH 16.5 % (11.5-14.0); SEGMENTED NEUTROPHILS % (AUTO) 66.7 % (42-78); TOTAL CELLS COUNTED % (AUTO) 100 %; WHITE BLOOD COUNT 4.6 10^3/uL (4.0-10.5)
[2019-08-07] MEDS: TRAMADOL HCL 50 MG TABLET PO PRN (14:33)
--- NOTE | 2019-08-07 16:03 | PDOC PROGRESS REPORT ---
Subjective Progress Note for:: 08/07/19 Reason For Visit: ABDOMINAL PAIN,CHRONIC AFIB,CHOLEDOCHOLITHIASIS Patient feels better, has chronic back pain. Arlette on clear liquids, n.p.o. after midnight. Of note patient has a history of abdominal colectomy for complicated diverticular disease. She has a known abdominal wall hernia. She is been off Xarelto for several days Physical Exam Vital Signs: Temp Pulse Resp BP Pulse Ox 98.6 F 74 24 H 139/76 H 97 08/07/19 11:57 08/07/19 11:57 08/07/19 11:57 08/07/19 11:57 08/07/19 11:57 Intake & Output 08/06/19 08/07/19 08/08/19 06:59 06:59 06:59 Intake Total 2139 Output Total 0 Balance 2139 Weight 135.9 kg 132.8 kg General appearance: PRESENT: no acute distress GI/Abdominal exam: PRESENT: other - Minimally tender right upper quadrant no peritoneal signs no rigidity. Results Laboratory Results: 08/07/19 13:00 08/07/19 13:00 08/07/19 08/07/19 13:00 13:00 WBC 4.6 RBC 4.26 Hgb 12.2 Hct 37.7 MCV 89 MCH 28.6 MCHC 32.3 RDW 16.5 H Plt Count 147 L Seg Neutrophils % 66.7 Sodium 142.6 Potassium 3.9 Chloride 102 Carbon Dioxide 29 Anion Gap 12 BUN 4 L Creatinine 0.47 L Est GFR ( Amer) > 60 Glucose 87 Calcium 8.8 08/05/19 07:43 Clean Catch Midstream Urine Culture - Final Escherichia Coli Escherichia Coli#2 08/05/19 05:10 Blood Blood Culture (PCR) - Final Escherichia Coli 08/05/19 05:10 Blood Blood Culture - Final Escherichia Coli 08/05/19 08/05/19 08/05/19 05:10 05:10 10:59 Creatine Kinase 39 CK-MB (CK-2) 0.73 Troponin I 0.051 0.112 08/05/19 16:43 Creatine Kinase CK-MB (CK-2) 1.07 Troponin I 0.062 Impressions: Abdomen MRI 08/05/19 00:00 IMPRESSION: 1. The common bile duct is dilated, measuring up to 1.1 cm in caliber. There is an elongated filling defect in the distal common bile duct within the pancreatic head concerning for one or more calculi, measuring 1.6 cm in length and 0.5 cm in caliber (series 6, image 51). 2. Cholelithiasis with mild distention of the gallbladder. Abdomen Ultrasound 08/05/19 07:56 IMPRESSION: Limited exam secondary to body habitus and bowel gas. 1. Cholelithiasis with dilated CBD measuring up to 11 mm. No definite intrahepatic ductal dilation. Findings suggestive of choledocholithiasis. Recommend correlation with LFTs for evidence of biliary obstruction. MRCP or ERCP could be considered for further confirmation. 2. Hepatic steatosis. Chest X-Ray 08/05/19 09:57 IMPRESSION: NO ACUTE RADIOGRAPHIC FINDING IN THE CHEST. Assessment & Plan - Diagnosis (1) Choledocholithiasis Is this a current diagnosis for this admission?: Yes Plan: Impression: Symptomatic cholelithiasis with choledocholithiasis and morbidly o bese white female with history of DVT, PE atrial fibrillation on chronic Xarelto therapy, now held for several days. PT normalized. Recommendations: 1. Plan for ERCP Cleaning by Dr. Jacques 2. Anticipate subsequent laparoscopic cholecystectomy possible conversion to open because of previous midline incisions, scarring etc. This was explained to the patient. She expresses her understanding and agrees to proceed. - Time Time Spent with patient: Less than 15 minutes
[2019-08-07] MEDS: MORPHINE SULFATE 10 MG/ML INJ IV PRN (22:13)
[2019-08-08 05:03] LABS: ABSOLUTE EOSINOPHILS # (AUTO) 0.1 10^3/uL (0.0-0.6); ABSOLUTE LYMPHOCYTES (AUTO) 0.8 10^3/uL (0.5-4.7); ABSOLUTE MONOCYTES (AUTO) 0.8 10^3/uL (0.1-1.4); ABSOLUTE NEUT (AUTO) 2.9 10^3/uL (1.7-8.2); BASOPHILS % (AUTO) 0.6 % (0-2); EOSINOPHILS % (AUTO) 1.3 % (0-6); HEMATOCRIT 35.2 % (36.0-47.0); HEMOGLOBIN 11.3 g/dL (12.0-15.5); LYMPHOCYTES % (AUTO) 17.6 % (13-45); MEAN CORPUSCULAR HEMOGLOBIN 28.5 pg (27.0-33.4); MEAN CORPUSCULAR HGB CONC 32.2 g/dL (32.0-36.0); MEAN CORPUSCULAR VOLUME 89 fl (80-97); MONOCYTES % (AUTO) 17.5 % (3-13); PLATELET COUNT 155 10^3/uL (150-450); RED BLOOD COUNT 3.98 10^6/uL (3.72-5.28); TOTAL CELLS COUNTED % (AUTO) 100 %; WHITE BLOOD COUNT 4.6 10^3/uL (4.0-10.5)
[2019-08-08 05:12] LABS: PROTHROMBIN TIME 14.2 SEC (11.4-15.4)
[2019-08-08 05:26] LABS: ALBUMIN 2.9 g/dL (3.5-5.0); ALKALINE PHOSPHATASE 44 U/L (38-126); ANION GAP 7 (5-19); ASPARTATE AMINO TRANSFERASE 33 U/L (14-36); BILIRUBIN,DIRECT 0.3 mg/dL (0.0-0.4); BILIRUBIN,TOTAL 0.6 mg/dL (0.2-1.3); BLOOD UREA NITROGEN 3 mg/dL (7-20); CALCIUM 8.7 mg/dL (8.4-10.2); CARBON DIOXIDE 30 mmol/L (22-30); CHLORIDE 105 mmol/L (98-107); GLUCOSE 81 mg/dL (75-110); POTASSIUM 3.8 mmol/L (3.6-5.0); TOTAL PROTEIN 5.5 g/dL (6.3-8.2)
[2019-08-08] MEDS: PIPERACILLIN SODIUM/TAZOBACTAM 3.375 GM in NORMAL SALINE 100 ML IV SCH ×4 (05:31→23:05)
[2019-08-08] MEDS: SOTALOL HCL 80 MG TABLET PO SCH ×2 (11:06→21:40)
[2019-08-08] MEDS: DILTIAZEM HCL 120 MG CAP.SR.24H PO SCH (11:07)
[2019-08-08] MEDS: FAMOTIDINE INJ/PF 20 MG/2 ML SDV IV SCH ×2 (11:08→21:41)
[2019-08-08] MEDS: DOCUSATE SODIUM 100 MG CAPSULE PO SCH (11:12)
[2019-08-08] MEDS: LATANOPROST 0.005% OPH SOLN 2.5 ML OU SCH ×2 (11:14→21:41)
--- NOTE | 2019-08-08 11:36 | PDOC PROGRESS REPORT ---
Subjective Progress Note for:: 08/08/19 Reason For Visit: ABDOMINAL PAIN,CHRONIC AFIB,CHOLEDOCHOLITHIASIS 08/08/2019 acute choledocholithiasis, chronic back pain Physical Exam Vital Signs: Temp Pulse Resp BP Pulse Ox 98.3 F 76 16 134/82 H 93 08/08/19 08:00 08/08/19 08:00 08/08/19 08:00 08/08/19 08:00 08/08/19 08:00 Intake & Output 08/07/19 08/08/19 08/09/19 06:59 06:59 06:59 Intake Total 2055 2729 Balance 2055 273 Weight 132.8 kg 125.5 kg General appearance: PRESENT: no acute distress Respiratory exam: PRESENT: clear to auscultation aroldo. ABSENT: rales, rhonchi, wheezes Cardiovascular exam: PRESENT: RRR. ABSENT: diastolic murmur, rubs, systolic murmur GI/Abdominal exam: PRESENT: distended, hyperactive bowel sounds, soft, tenderness - Mild tenderness in the epigastric region Neurological exam: PRESENT: alert, awake, oriented to person, oriented to place, oriented to time, oriented to situation, CN II-XII grossly intact. ABSENT: motor sensory deficit Psychiatric exam: PRESENT: appropriate affect, normal mood. ABSENT: homicidal ideation, suicidal ideation Results Laboratory Results: 08/08/19 04:35 08/08/19 04:35 08/07/19 08/07/19 08/08/19 13:00 13:00 04:35 WBC 4.6 4.6 RBC 4.26 3.98 Hgb 12.2 11.3 L Hct 37.7 35.2 L MCV 89 89 MCH 28.6 28.5 MCHC 32.3 32.2 RDW 16.5 H 16.0 H Plt Count 147 L 155 Seg Neutrophils % 66.7 63.0 Sodium 142.6 Potassium 3.9 Chloride 102 Carbon Dioxide 29 Anion Gap 12 BUN 4 L Creatinine 0.47 L Est GFR ( Amer) > 60 Glucose 87 Calcium 8.8 Total Bilirubin AST Alkaline Phosphatase Total Protein Albumin 08/08/19 04:35 WBC RBC Hgb Hct MCV MCH MCHC RDW Plt Count Seg Neutrophils % Sodium 142.1 Potassium 3.8 Chloride 105 Carbon Dioxide 30 Anion Gap 7 BUN 3 L Creatinine 0.53 Est GFR ( Amer) > 60 Glucose 81 Calcium 8.7 Total Bilirubin 0.6 AST 33 Alkaline Phosphatase 44 Total Protein 5.5 L Albumin 2.9 L 08/05/19 07:43 Clean Catch Midstream Urine Culture - Final Escherichia Coli Escherichia Coli#2 08/05/19 05:10 Blood Blood Culture (PCR) - Final Escherichia Coli 08/05/19 05:10 Blood Blood Culture - Final Escherichia Coli 08/05/19 08/05/19 08/05/19 05:10 05:10 10:59 Creatine Kinase 39 CK-MB (CK-2) 0.73 Troponin I 0.051 0.112 08/05/19 16:43 Creatine Kinase CK-MB (CK-2) 1.07 Troponin I 0.062 Impressions: Abdomen MRI 08/05/19 00:00 IMPRESSION: 1. The common bile duct is dilated, measuring up to 1.1 cm in caliber. There is an elongated filling defect in the distal common bile duct within the pancreatic head concerning for one or more calculi, measuring 1.6 cm in length and 0.5 cm in caliber (series 6, image 51). 2. Cholelithiasis with mild distention of the gallbladder. Abdomen Ultrasound 08/05/19 07:56 IMPRESSION: Limited exam secondary to body habitus and bowel gas. 1. Cholelithiasis with dilated CBD measuring up to 11 mm. No definite intrahepatic ductal dilation. Findings suggestive of choledocholithiasis. Recommend correlation with LFTs for evidence of biliary obstruction. MRCP or ERCP could be considered for further confirmation. 2. Hepatic steatosis. Chest X-Ray 08/05/19 09:57 IMPRESSION: NO ACUTE RADIOGRAPHIC FINDING IN THE CHEST. Assessment and Plan - Diagnosis (1) Abdominal pain Is this a current diagnosis for this admission?: Yes (2) Obesity Is this a current diagnosis for this admission?: Yes (3) Chronic low back pain Is this a current diagnosis for this admission?: Yes (4) Atrial flutter with rapid ventricular response Is this a current diagnosis for this admission?: Yes (5) Calculus of common bile duct with acute cholecystitis Is this a current diagnosis for this admission?: Yes (6) Fever Qualifiers: Fever type: unspecified Qualified Code(s): R50.9 - Fever, unspecified Is this a current diagnosis for this admission?: Yes - Plan Summary Summary: 08/05/2019 She has been seen by general surgery and feels that a MRCP needs to be done. We will also hold her Xarelto since she is a surgical candidate, was 48 hours. The antibiotics will be given. Patient's chronic atrial fib/flutter will be controlled. I explained all this to the patient. Diet will be regulated by general surgery. She is medically stable to transfer to the floor 08/06/2019 98 3, blood pressure 132/76, pulse 76, O2 sat 94% on room air White blood cell count today 5500 INR is down to 1.4 Electrolytes are normal Continue pain medicine, patient is currently n.p.o., anticipate surgery tomorrow 08/07/2019 She is up and ambulatory to the bathroom by herself Temperature 98.2, pulse 69, blood pressure 127/54, oxygen saturation 93% on room air Patient is growing out E. coli in her blood as well as her urine It does appear to be sensitive to her Zosyn that she is on I am going to recheck labs again this afternoon, n p.o. tonight at midnight recheck labs at 0600 tomorrow if labs from today are abnormal Patient has not been on Xarelto or heparin, however she is up and ambulatory. Will resume the heparin following surgery tomorrow when okayed by general surgery 08/08/2019 Temperature 98.4, pulse 68, blood pressure 127/54 White blood cell count 4600 , coags are normal She was on a full liquid diet until morning. Patient is passing gas had a bowel movement yesterday. ERCP is scheduled for today around 1730 Tentatively laparoscopic cholecystectomy tomorrow Patient only using morphine about once every 24 hours - Time Time Spent with patient: 15-24 minutes
[2019-08-08] MEDS ORDERED: FENTANYL CITRATE INJ/PF 100 MCG/2 ML AMPUL ONE (17:04)
[2019-08-08] MEDS ORDERED: SUGAMMADEX SODIUM 200 MG/2 ML SDV IV ONE (17:04)
[2019-08-08] MEDS ORDERED: LIDOCAINE 2% INJ-PF (20 MG/ML) 10 ML AMPUL ONE (17:04)
[2019-08-08] MEDS ORDERED: MIDAZOLAM 2 MG/2 ML INJ ONE (17:04)
[2019-08-08] MEDS ORDERED: PROPOFOL INJ 200 MG/20 ML VIAL IV ONE (17:04)
[2019-08-08] MEDS ORDERED: IPRATROPIUM/ALBUTEROL 0.5-2.5 MG/3 ML AMPUL NEB ONE ×2 (17:43→19:21)
[2019-08-08] MEDS ORDERED: DIPHENHYDRAMINE HCL 50 MG/ML VIAL IV PRN (18:41)
[2019-08-08] MEDS ORDERED: FENTANYL CITRATE INJ/PF 100 MCG/2 ML AMPUL IV PRN ×2 (18:41)
[2019-08-08] MEDS ORDERED: ONDANSETRON HCL INJ/PF 4 MG/2 ML SDV IV PRN (18:41)
[2019-08-08] MEDS ORDERED: PROMETHAZINE HCL INJ 25 MG/1 ML VIAL IV PRN ×2 (18:41)
--- NOTE | 2019-08-08 18:59 | PDOC CONSULTATION ---
Consultation Consult Date: 08/06/19 Provider Consulted: REBECA RODRIGUEZ History of Present Illness Admission Date/PCP: 08/05/19 10:25 SAMMY URIBE NP History of Present Illness: KAMINI FERNANDEZ is a 69 year old female who was admitted on 08/05/2019 with abdominal pain radiating to the back. She has had a few other episodes of similar right upper quadrant pain a couple of times a year but this current episode was the most severe. She was diagnosed with gallstones a few years ago. On admission her lipase and LFTs were normal but her ultrasound showed gallstones, dilated common bile duct up to 11 mm and evidence for choledocholithiasis. She also had a fatty liver. An MRCP was performed basically showing the same thing. Past Medical History Cardiac Medical History: Reports: Atrial Fibrillation, Hypertension Denies: Myocardial Infarction Pulmonary Medical History: Denies: Asthma Neurological Medical History: Denies: Seizures GI Medical History: Reports: Hiatal Hernia Denies: Hepatitis Hematology: Denies: Anemia, Sickle Cell Disease Past Surgical History Past Surgical History: Reports: Herniorrhaphy, Hysterectomy Denies: Amputation, Mastectomy, Pacemaker Social History Smoking Status: Never Smoker Electronic Cigarette use?: No Frequency of Alcohol Use: Occasional Hx Recreational Drug Use: No Hx Prescription Drug Abuse: No - Advance Directive Resuscitation Status: Full Code Family History Family History: Reviewed & Not Pertinent Parental Family History Reviewed: No Children Family History Reviewed: NA Sibling(s) Family History Reviewed.: NA Medication/Allergy Home Medications: Bimatoprost [Lumigan 0.01% Oph Soln 2.5 ml/Bottle] 1 drop OU BID 08/05/19 Butalb/Acetaminophen/Caffeine [Fioricet (50-325-40 mg) Tablet] 1 tab PO Q8HP PRN 08/05/19 Calcium Carbonate/Vitamin D3 [Os-Raffaele 500-Vit D3 200 Caplet] 1 tab PO DAILY 08/05/19 Cholecalciferol (Vitamin D3) [Vitamin D3 1000 Unit Tablet] 2,000 unit PO DAILY 08/05/19 Diltiazem HCl [Cardizem Cd 120 mg Capsule] 120 mg PO DAILY 08/05/19 Milk Thistle 150 mg PO DAILY 08/05/19 Omeprazole 20 mg PO QPM 08/05/19 Psyllium Husk (with Sugar) [Metamucil Packet] 3.4 gm PO DAILYP PRN 08/05/19 Rivaroxaban [Xarelto] 20 mg PO QPM 08/05/19 Sotalol HCl [Betapace] 120 mg PO BID 08/05/19 Tramadol HCl [Ultram 50 mg Tablet] 50 mg PO Q6HP PRN 08/05/19 Allergies/Adverse Reactions: Sulfa (Sulfonamide Antibiotics) Allergy (Verified 08/05/19 07:53) RASH Review of Systems All systems: reviewed and no additional remarkable complaints except as stated Physical Exam Vital Signs: Temp Pulse Resp BP Pulse Ox 98.5 F 71 20 134/87 H 99 08/08/19 15:01 08/08/19 15:01 08/08/19 15:01 08/08/19 15:01 08/08/19 15:01 Intake & Output 08/07/19 08/08/19 08/09/19 06:59 06:59 06:59 Intake Total 2055 2730 500 Output Total 500 Balance 2055 2730 0 Weight 132.8 kg 125.5 kg Exam: General: Patient is alert and obese. HEENT: There is no pallor or jaundice. PERRLA. Oropharynx normal Respiratory: No chest deformity. No respiratory distress. Chest wall palpitation was unremarkable. Breath sounds were normal Cardiovascular: Heart sounds 1 and 2 normal with no murmurs. Abdominal: Not distended. Soft and nontender. Difficult to feel for masses due to obesity. Bowel sounds active. Rectal examination was deferred. Extremities: No edema Neurological: Alert and oriented x4. Grossly nonfocal. Normal speech Skin: No significant rash Psychological: Normal affect Results Laboratory Results: 08/08/19 04:35 08/08/19 04:35 08/08/19 08/08/19 04:35 04:35 WBC 4.6 RBC 3.98 Hgb 11.3 L Hct 35.2 L MCV 89 MCH 28.5 MCHC 32.2 RDW 16.0 H Plt Count 155 Seg Neutrophils % 63.0 Sodium 142.1 Potassium 3.8 Chloride 105 Carbon Dioxide 30 Anion Gap 7 BUN 3 L Creatinine 0.53 Est GFR ( Amer) > 60 Glucose 81 Calcium 8.7 Total Bilirubin 0.6 AST 33 Alkaline Phosphatase 44 Total Protein 5.5 L Albumin 2.9 L 12/12/19 12/12/19 12/12/19 05:10 05:10 10:59 Creatine Kinase 39 CK-MB (CK-2) 0.73 Troponin I 0.051 0.112 08/05/19 16:43 Creatine Kinase CK-MB (CK-2) 1.07 Troponin I 0.062 Impressions: Abdomen MRI 08/05/19 00:00 IMPRESSION: 1. The common bile duct is dilated, measuring up to 1.1 cm in caliber. There is an elongated filling defect in the distal common bile duct within the pancreatic head concerning for one or more calculi, measuring 1.6 cm in length and 0.5 cm in caliber (series 6, image 51). 2. Cholelithiasis with mild distention of the gallbladder. Abdomen Ultrasound 08/05/19 07:56 IMPRESSION: Limited exam secondary to body habitus and bowel gas. 1. Cholelithiasis with dilated CBD measuring up to 11 mm. No definite in trahepatic ductal dilation. Findings suggestive of choledocholithiasis. Recommend correlation with LFTs for evidence of biliary obstruction. MRCP or ERCP could be considered for further confirmation. 2. Hepatic steatosis. Chest X-Ray 08/05/19 09:57 IMPRESSION: NO ACUTE RADIOGRAPHIC FINDING IN THE CHEST. Assessment & Plan - Diagnosis (1) Choledocholithiasis Is this a current diagnosis for this admission?: Yes Plan: She has symptoms and signs of choledocholithiasis but fortunately her LFTs and lipase remain normal. The need for an ERCP including the risk and benefit was explained to the patient and she is in agreement. (2) Abdominal pain Is this a current diagnosis for this admission?: Yes (3) Cholelithiasis Is this a current diagnosis for this admission?: Yes
--- NOTE | 2019-08-08 19:02 | Operative Report ---
Operative Report DATE OF SURGERY: 08/08/19 Operative Report: Pre-op diagnosis: Abdominal pain and choledocholithiasis on ultrasound Post-op diagnosis: 1. Multiple common bile duct stones 2. Dilated common bile duct Surgery: ERCP with sphincterotomy and balloon stones extraction Medications: As per anesthesia Tissue removed: None Procedure: After informed consent obtained from patient, the throat was sprayed with Hurricane and conscious sedation was achieved. The ERCP endoscope was then inserted into the esophagus blindly and advanced into the stomach. The duodenum was entered and the ampulla was identified. Using the triple-lumen sphincterotomy catheter the common bile duct was freely cannulated. A c holangiogram was obtained which showed possible a dilated common bile duct and a large filling defect in the middle part of the duct. A good sized sphincterotomy was then performed using the endocut mode. The catheter was removed over the guidewire before a 9-12 mm balloon catheter was inserted. The balloon was inflated to 12 mm in the proximal common bile duct and pulled down the duct. Multiple small and large stones were extracted. The duct was swept 2 more times. A balloon occlusion cholangiogram was normal. The pancreatic duct was intentionally not cannulated. Patient tolerated procedure well. Findings Common bile duct: Dilated with multiple stones one of which was elongated and at least 15 mm Intrahepatic ducts: Normal Pancreatic duct: Not cannulated Plan: Proceed with cholecystectomy when appropriate OPERATION: .
--- NOTE | 2019-08-08 20:34 | RADIOLOGY REPORT (SQ) ---
EXAM DESCRIPTION: XR CHEST 1 VIEW COMPLETED DATE/TME: 08/08/2019 00:00 CLINICAL HISTORY: 69 years, Female, SURGICAL COMPARISON: Prior study from 08/05/2019 NUMBER OF VIEWS: One TECHNIQUE: Single frontal view of the chest was obtained portably LIMITATIONS: None. FINDINGS: Cardiac and mediastinal contours are stable. Patient rotation towards the right likely accentuates the right paratracheal stripe. Lungs are otherwise clear. No pleural effusion or pneumothorax. IMPRESSION: No acute disease. copyright 2010 [employer]- All Rights Reserved
--- NOTE | 2019-08-08 21:01 | PDOC PROGRESS REPORT ---
Subjective Progress Note for:: 08/08/19 Subjective:: Just had access [facility] ERCP with the removal of common bile duct stones Reason For Visit: ABDOMINAL PAIN,CHRONIC AFIB,CHOLEDOCHOLITHIASIS Physical Exam Vital Signs: Temp Pulse Resp BP Pulse Ox 98.3 F 92 18 165/87 H 97 08/08/19 19:50 08/08/19 19:50 08/08/19 19:50 08/08/19 19:50 08/08/19 19:50 Intake & Output 08/07/19 08/08/19 08/09/19 06:59 06:59 06:59 Intake Total 2055 2730 1200 Output Total 500 Balance 2055 2730 700 Weight 132.8 kg 125.5 kg Exam: Patient with a slight decrease in O2 sat and has been coughing. No being given albuterol therapy in PACU Results Laboratory Results: 08/08/19 04:35 08/08/19 04:35 08/08/19 08/08/19 04:35 04:35 WBC 4.6 RBC 3.98 Hgb 11.3 L Hct 35.2 L MCV 89 MCH 28.5 MCHC 32.2 RDW 16.0 H Plt Count 155 Seg Neutrophils % 63.0 Sodium 142.1 Potassium 3.8 Chloride 105 Carbon Dioxide 30 Anion Gap 7 BUN 3 L Creatinine 0.53 Est GFR ( Amer) > 60 Glucose 81 Calcium 8.7 Total Bilirubin 0.6 AST 33 Alkaline Phosphatase 44 Total Protein 5.5 L Albumin 2.9 L 08/05/19 08/05/19 08/05/19 05:10 05:10 10:59 Creatine Kinase 39 CK-MB (CK-2) 0.73 Troponin I 0.051 0.112 08/05/19 16:43 Creatine Kinase CK-MB (CK-2) 1.07 Troponin I 0.062 Impressions: Abdomen MRI 08/05/19 00:00 IMPRESSION: 1. The common bile duct is dilated, measuring up to 1.1 cm in caliber. There is an elongated filling defect in the distal common bile duct within the pancreatic head concerning for one or more calculi, measuring 1.6 cm in length and 0.5 cm in caliber (series 6, image 51). 2. Cholelithiasis with mild distention of the gallbladder. Abdomen Ultrasound 08/05/19 07:56 IMPRESSION: Limited exam secondary to body habitus and bowel gas. 1. Cholelithiasis with dilated CBD measuring up to 11 mm. No definite intrahepatic ductal dilation. Findings suggestive of choledocholithiasis. Recommend correlation with LFTs for evidence of biliary obstruction. MRCP or ERCP could be considered for further confirmation. 2. Hepatic steatosis. Chest X-Ray 08/08/19 00:00 IMPRESSION: No acute disease. copyright 2011 [employer]- All Rights Reserved Assessment & Plan - Diagnosis (1) Fever Qualifiers: Fever type: unspecified Qualified Code(s): R50.9 - Fever, unspecified Is this a current diagnosis for this admission?: Yes (2) Cholelithiasis Is this a current diagnosis for this admission?: Yes (3) Choledocholithiasis Is this a current diagnosis for this admission?: Yes - Time Time Spent with patient: 15-24 minutes - Inpatient Certification Medical Necessity: Need For IV Fluids, Need for Surgery - Plan Summary Plan Summary: We will tentatively schedule for lap [place] tomorrow by Dr. Hope
[2019-08-08] MEDS ORDERED: GLUCAGON,HUMAN RECOMB 1 MG INJ SUBCUT PRN (21:03)
[2019-08-08] MEDS ORDERED: DEXTROSE 40% GEL 15 GM TUBE PO PRN ×2 (21:03)
[2019-08-08] MEDS ORDERED: DEXTROSE 50%-WATER 25 GM/50 ML DISP.SYRIN IV PRN ×2 (21:03)
[2019-08-08] MEDS: MORPHINE SULFATE 10 MG/ML INJ IV PRN (21:42)
[2019-08-08] MEDS: NORMAL SALINE 1000 ML 1,000 ML IV PRN (21:43)
[2019-08-08] MEDS: ONDANSETRON HCL INJ/PF 4 MG/2 ML SDV IV PRN (21:43)
[2019-08-09] MEDS: ONDANSETRON 4 MG TAB.RAPDIS PO PRN (01:55)
[2019-08-09 05:36] LABS: ABSOLUTE LYMPHOCYTES (AUTO) 0.7 10^3/uL (0.5-4.7); ABSOLUTE MONOCYTES (AUTO) 0.9 10^3/uL (0.1-1.4); ABSOLUTE NEUT (AUTO) 5.7 10^3/uL (1.7-8.2); BASOPHILS % (AUTO) 0.6 % (0-2); EOSINOPHILS % (AUTO) 0.3 % (0-6); HEMATOCRIT 38.4 % (36.0-47.0); HEMOGLOBIN 12.4 g/dL (12.0-15.5); LYMPHOCYTES % (AUTO) 9.9 % (13-45); MEAN CORPUSCULAR HEMOGLOBIN 28.4 pg (27.0-33.4); MEAN CORPUSCULAR HGB CONC 32.2 g/dL (32.0-36.0); MEAN CORPUSCULAR VOLUME 88 fl (80-97); MONOCYTES % (AUTO) 11.8 % (3-13); PLATELET COUNT 157 10^3/uL (150-450); RED BLOOD COUNT 4.36 10^6/uL (3.72-5.28); RED CELL DISTRIBUTION WIDTH 16.3 % (11.5-14.0); SEGMENTED NEUTROPHILS % (AUTO) 77.4 % (42-78); TOTAL CELLS COUNTED % (AUTO) 100 %; WHITE BLOOD COUNT 7.4 10^3/uL (4.0-10.5)
[2019-08-09] MEDS: PIPERACILLIN SODIUM/TAZOBACTAM 3.375 GM in NORMAL SALINE 100 ML IV SCH ×4 (05:43→23:53)
[2019-08-09 05:57] LABS: ALBUMIN 3.1 g/dL (3.5-5.0); ALKALINE PHOSPHATASE 79 U/L (38-126); ANION GAP 11 (5-19); ASPARTATE AMINO TRANSFERASE 61 U/L (14-36); BILIRUBIN,DIRECT 0.3 mg/dL (0.0-0.4); BILIRUBIN,TOTAL 0.7 mg/dL (0.2-1.3); BLOOD UREA NITROGEN 2 mg/dL (7-20); CALCIUM 8.7 mg/dL (8.4-10.2); CARBON DIOXIDE 28 mmol/L (22-30); CHLORIDE 102 mmol/L (98-107); GLUCOSE 95 mg/dL (75-110); POTASSIUM 3.9 mmol/L (3.6-5.0); TOTAL PROTEIN 5.9 g/dL (6.3-8.2)
--- NOTE | 2019-08-09 08:47 | RADIOLOGY REPORT (SQ) ---
EXAM DESCRIPTION: CHEST 2 VIEWS COMPLETED DATE/TIME: 08/09/2019 8:32 am REASON FOR STUDY: preop, sob,wheezing COMPARISON: 08/08/2019. EXAM PARAMETERS: NUMBER OF VIEWS: two views TECHNIQUE: Digital Frontal and Lateral radiographic views of the chest acquired. RADIATION DOSE: NA LIMITATIONS: none FINDINGS: LUNGS AND PLEURA: No opacities, masses or pneumothorax. No pleural effusion. MEDIASTINUM AND HILAR STRUCTURES: No masses or contour abnormalities. HEART AND VASCULAR STRUCTURES: Heart upper limits of normal size. No evidence for failure. BONES: No acute findings. HARDWARE: None in the chest. OTHER: No other significant finding. IMPRESSION: NO ACUTE RADIOGRAPHIC FINDING IN THE CHEST. TECHNICAL DOCUMENTATION: JOB ID: [id number] [employer]- All Rights Reserved Reading location - IP/workstation name: [email or web address]
--- NOTE | 2019-08-09 09:09 | RADIOLOGY REPORT (SQ) ---
EXAM DESCRIPTION: ENDO CATH/BILIARY DUCT; NO CHG FLUORO COMPLETED DATE/TIME: 08/08/2019 7:23 pm REASON FOR STUDY: COMMON BILDUCT STONE ASST WITH FLUORO IN OR COMPARISON: None. FLUOROSCOPY TIME: 3.4 minutes. 6 images saved to PACS. TECHNIQUE: Intra-operative images acquired during surgical procedure to evaluate progress. NUMBER OF IMAGES: 6 images. LIMITATIONS: None. FINDINGS: Images acquired during ERCP. IMPRESSION: IMAGE(S) OBTAINED DURING PROCEDURE. COMMENT: Quality ID 145: Final reports for procedures using fluoroscopy that document radiation exp osure indices, or exposure time and number of fluorographic images (if radiation exposure indices are not available) Please consult full operative report of the attending physician for description of the procedure. TECHNICAL DOCUMENTATION: JOB ID: [id number] [employer]- All Rights Reserved Reading location - IP/workstation name: [email or web address]
--- NOTE | 2019-08-09 09:09 | RADIOLOGY REPORT (SQ) ---
EXAM DESCRIPTION: ENDO CATH/BILIARY DUCT; NO CHG FLUORO COMPLETED DATE/TIME: 08/08/2019 7:23 pm REASON FOR STUDY: COMMON BILDUCT STONE ASST WITH FLUORO IN OR COMPARISON: None. FLUOROSCOPY TIME: 3.4 minutes. 6 images saved to PACS. TECHNIQUE: Intra-operative images acquired during surgical procedure to evaluate progress. NUMBER OF IMAGES: 6 images. LIMITATIONS: None. FINDINGS: Images acquired during ERCP. IMPRESSION: IMAGE(S) OBTAINED DURING PROCEDURE. COMMENT: Quality ID 145: Final reports for procedures using fluoroscopy that document radiation exp osure indices, or exposure time and number of fluorographic images (if radiation exposure indices are not available) Please consult full operative report of the attending physician for description of the procedure. TECHNICAL DOCUMENTATION: JOB ID: [id number] [employer]- All Rights Reserved Reading location - IP/workstation name: [email or web address]
[2019-08-09] MEDS: SOTALOL HCL 80 MG TABLET PO SCH ×2 (09:36→23:45)
[2019-08-09] MEDS: DILTIAZEM HCL 120 MG CAP.SR.24H PO SCH (09:36)
[2019-08-09] MEDS: FAMOTIDINE INJ/PF 20 MG/2 ML SDV IV SCH ×2 (09:38→23:46)
[2019-08-09] MEDS: ONDANSETRON HCL INJ/PF 4 MG/2 ML SDV IV PRN (09:38)
[2019-08-09] MEDS: LATANOPROST 0.005% OPH SOLN 2.5 ML OU SCH ×2 (09:40→23:46)
[2019-08-09] MEDS: DOCUSATE SODIUM 100 MG CAPSULE PO SCH (09:40)
--- NOTE | 2019-08-09 09:57 | PDOC PROGRESS REPORT ---
Subjective Progress Note for:: 08/09/19 Subjective:: Patient feels better, no complaints. Tolerated ERCP well. Now n.p.o. on IV fluids. Patient with dry cough. Patient had a chest x-ray this morning which showed no acute findings Reason For Visit: ABDOMINAL PAIN,CHRONIC AFIB,CHOLEDOCHOLITHIASIS Physical Exam Vital Signs: Temp Pulse Resp BP Pulse Ox 98.2 F 105 H 21 H 170/98 H 98 08/09/19 08:00 08/09/19 08:00 08/09/19 08:00 08/09/19 08:00 08/09/19 08:00 Intake & Output 08/08/19 08/09/19 08/10/19 06:59 06:59 06:59 Intake Total 2730 2800 Output Total 1700 Balance 2730 1100 Weight 125.5 kg 133.2 kg General appearance: PRESENT: mild distress, other - Some accessory muscle use during respiration GI/Abdominal exam: PRESENT: other - Abdomen soft, nontender no peritoneal signs no rigidity. Results Laboratory Results: 08/09/19 04:23 08/09/19 04:23 08/09/19 08/09/19 04:23 04:23 WBC 7.4 RBC 4.36 Hgb 12.4 Hct 38.4 MCV 88 MCH 28.4 MCHC 32.2 RDW 16.3 H Plt Count 157 Seg Neutrophils % 77.4 Sodium 140.9 Potassium 3.9 Chloride 102 Carbon Dioxide 28 Anion Gap 11 BUN 2 L Creatinine 0.40 L Est GFR ( Amer) > 60 Glucose 95 Calcium 8.7 Total Bilirubin 0.7 AST 61 H Alkaline Phosphatase 79 Total Protein 5.9 L Albumin 3.1 L Lipase 67.4 08/05/19 08/05/19 08/05/19 05:10 05:10 10:59 Creatine Kinase 39 CK-MB (CK-2) 0.73 Troponin I 0.051 0.112 08/05/19 16:43 Creatine Kinase CK-MB (CK-2) 1.07 Troponin I 0.062 Impressions: Abdomen MRI 08/05/19 00:00 IMPRESSION: 1. The common bile duct is dilated, measuring up to 1.1 cm in caliber. There is an elongated filling defect in the distal common bile duct within the pancreatic head concerning for one or more calculi, measuring 1.6 cm in length and 0.5 cm in caliber (series 6, image 51). 2. Cholelithiasis with mild distention of the gallbladder. Abdomen Ultrasound 08/05/19 07:56 IMPRESSION: Limited exam secondary to body habitus and bowel gas. 1. Cholelithiasis with dilated CBD measuring up to 11 mm. No definite intrahepatic ductal dilation. Findings suggestive of choledocholithiasis. Recommend correlation with LFTs for evidence of biliary obstruction. MRCP or ERCP could be considered for further confirmation. 2. Hepatic steatosis. Catheter Placement 08/08/19 00:00 IMPRESSION: IMAGE(S) OBTAINED DURING PROCEDURE. Fluoroscopy 08/08/19 00:00 IMPRESSION: IMAGE(S) OBTAINED DURING PROCEDURE. Chest X-Ray 08/09/19 00:00 IMPRESSION: NO ACUTE RADIOGRAPHIC FINDING IN THE CHEST. Assessment & Plan - Diagnosis (1) Choledocholithiasis Is this a current diagnosis for this admission?: Yes Plan: Impression: Satisfactory recovery from ERCP, sphincterotomy, removal of a common duct stones, with normal postprocedure LFTs. Recommendations: 1. Plan for laparoscopic, possible open cholecystectomy today. Risk benefits and alternatives to planned procedure, the patient including bleeding, in fection, bile duct injury, need for conversion to open procedure given patient's history of previous laparotomy, risk of scar etc. she expresses her understanding and agrees to proceed. 2. Continue to hold blood thinner. - Time Time Spent with patient: 15-24 minutes
[2019-08-09] MEDS ORDERED: MIDAZOLAM 2 MG/2 ML INJ ONE (14:39)
[2019-08-09] MEDS ORDERED: SUGAMMADEX SODIUM 200 MG/2 ML SDV IV ONE (14:39)
[2019-08-09] MEDS ORDERED: FENTANYL CITRATE INJ/PF 100 MCG/2 ML AMPUL ONE (14:39)
[2019-08-09] MEDS ORDERED: ONDANSETRON HCL INJ/PF 4 MG/2 ML SDV ONE (14:39)
[2019-08-09] MEDS ORDERED: DEXAMETHASONE SOD PHOSPHATE INJ 4 MG/1 ML VIAL ONE (14:39)
[2019-08-09] MEDS ORDERED: PROPOFOL INJ 200 MG/20 ML VIAL IV ONE (14:40)
[2019-08-09] MEDS ORDERED: FENTANYL CITRATE INJ/PF 100 MCG/2 ML AMPUL IV PRN ×3 (14:58)
[2019-08-09] MEDS ORDERED: MEPERIDINE HCL/PF INJ 25 MG/1 ML DISP.SYRIN IV PRN (14:58)
[2019-08-09] MEDS ORDERED: DIPHENHYDRAMINE HCL 50 MG/ML VIAL IV PRN (14:58)
[2019-08-09] MEDS ORDERED: ONDANSETRON HCL INJ/PF 4 MG/2 ML SDV IV PRN (14:58)
[2019-08-09] MEDS ORDERED: PROMETHAZINE HCL INJ 25 MG/1 ML VIAL IV PRN ×2 (14:58)
[2019-08-09] MEDS ORDERED: BUPIVACAINE HCL 0.25 % INJ/PF (2.5 MG/1 ML) 30 ML VIAL ONE (15:11)
[2019-08-09] MEDS ORDERED: ALBUTEROL SULFATE 0.083% NEB 2.5 MG/3 ML AMPUL NEB ONE (15:33)
[2019-08-09] MEDS: NORMAL SALINE 1000 ML 1,000 ML IV PRN (18:17)
[2019-08-09] MEDS ORDERED: IPRATROPIUM/ALBUTEROL 0.5-2.5 MG/3 ML AMPUL NEB ONE (19:30)
--- NOTE | 2019-08-09 22:41 | RADIOLOGY REPORT (SQ) ---
EXAM DESCRIPTION: [facility]: CT CHEST ANGIOGRAPHY WITHOUT THEN WITH IV CONTRAST CLINICAL HISTORY: 69 years Female; hypoxia; TECHNIQUE: CT angiogram of the chest using intravenous contrast.. MIP reconstructions were performed. All CT scans at this facility use dose modulation, iterative reconstruction, and/or weight based dosing when appropriate to reduce radiation dose to as low as reasonably achievable. COMPARISON: No previous chest CT. Ultrasound abdomen 08/05/2019. FINDINGS: Chest: No filling defects in the central pulmonary arteries. No acute infiltrate, effusion, or pneumothorax. Interstitial markings in the right lung is increased. There is no focal consolidation, although there is some dependent atelectasis in both lower lobes. No pleural effusion or pneumothorax. Thoracic aorta: No aneurysm or dissection. No enlarged mediastinal lymph nodes. No pericardial effusion. No acute bone findings. Chronic degenerative changes are noted throughout the thoracic spine, with multilevel anterior bridging osteophytes suggesting DISH. Gallbladder is hyperdense, typical for partially calcified gallstones. 3 mm calculus in the upper pole of the left kidney. Kidneys are incompletely visualized. IMPRESSION: 1. No CT evidence for pulmonary embolism. 2. Mild diffuse interstitial infiltrate, likely cardiogenic pulmonary edema. Cannot exclude an atypical interstitial pneumonia. 3. Cholelithiasis
[2019-08-09] MEDS: MORPHINE SULFATE 10 MG/ML INJ IV PRN (23:51)
[2019-08-10] MEDS: PIPERACILLIN SODIUM/TAZOBACTAM 3.375 GM in NORMAL SALINE 100 ML IV SCH ×4 (05:50→23:18)
[2019-08-10] MEDS: FUROSEMIDE INJ/PF 40 MG/4 ML SDV IV SCH ×2 (10:29→23:15)
[2019-08-10] MEDS: DOCUSATE SODIUM 100 MG CAPSULE PO SCH (10:30)
[2019-08-10] MEDS: DILTIAZEM HCL 120 MG CAP.SR.24H PO SCH (10:30)
[2019-08-10] MEDS: SOTALOL HCL 80 MG TABLET PO SCH ×2 (10:31→23:14)
[2019-08-10] MEDS: FAMOTIDINE INJ/PF 20 MG/2 ML SDV IV SCH ×2 (10:31→23:16)
[2019-08-10] MEDS: LATANOPROST 0.005% OPH SOLN 2.5 ML OU SCH ×2 (10:31→23:16)
--- NOTE | 2019-08-10 11:15 | RADIOLOGY REPORT (SQ) ---
EXAM DESCRIPTION: CHEST SINGLE VIEW COMPLETED DATE/TIME: 08/10/2019 11:08 am REASON FOR STUDY: dyspnea, hypoxia COMPARISON: 08/09/2019 EXAM PARAMETERS: NUMBER OF VIEWS: One view. TECHNIQUE: Single frontal radiographic view of the chest acquired. RADIATION DOSE: NA LIMITATIONS: None. FINDINGS: LUNGS AND PLEURA: No opacities, masses or pneumothorax. No pleural effusion. MEDIASTINUM AND HILAR STRUCTURES: No masses. Contour normal. HEART AND VASCULAR STRUCTURES: Heart normal in size. Normal vasculature. BONES: No acute findings. HARDWARE: None in the chest. OTHER: No other significant finding. IMPRESSION: NO ACUTE RADIOGRAPHIC FINDING IN THE CHEST. TECHNICAL DOCUMENTATION: JOB ID: [id number] [employer]- All Rights Reserved Reading location - IP/workstation name: [email or web address]
[2019-08-10] MEDS ORDERED: HEPARIN SODIUM,PORCINE/D5W 25,000 UNIT/250 ML RTUINJ IV PRN (13:08)
[2019-08-10] MEDS ORDERED: HEPARIN SOD (PORCINE) 1,000 UNIT/ML 10 ML VIAL IV ONE (13:08)
[2019-08-10] MEDS ORDERED: DILTIAZEM HCL 60 MG TABLET PO ONE (13:10)
--- NOTE | 2019-08-10 13:18 | PDOC PROGRESS REPORT ---
Subjective Progress Note for:: 08/10/19 Subjective:: The patient is a 69-year-old female with a past medical history of atrial fibrillation, hypertension, and morbid obesity who was admitted 08/05/2019 for Acute cholecystitis. She was seen on morning rounds with Dr. Olson. Patient was found resting in bed on supplemental oxygen via nasal cannula; she is not home O2 dependent. She was noted to be abdominally breathing and slightly tachypneic, however, I do believe this to be somewhat positional as she was lying supine. She was seen shortly later sitting up to the edge of the bed, on room air, and appeared much more comfortable. Patient does confirm slight shortness of breath and nonproductive cough; improve d from yesterday. She denies fever, chills, chest pain, palpitations, abdominal pain, nausea vomiting and diarrhea. She has no new questions or concerns at this time. No concerns per nursing. Reason For Visit: ABDOMINAL PAIN,CHRONIC AFIB,CHOLEDOCHOLITHIASIS Physical Exam Vital Signs: Temp Pulse Resp BP Pulse Ox 97.4 F 132 H 22 H 138/105 H 98 08/10/19 07:41 08/10/19 07:41 08/10/19 07:41 08/10/19 07:41 08/10/19 07:41 Intake & Output 08/09/19 08/10/19 08/11/19 06:59 06:59 06:59 Intake Total 2800 2330 1100 Output Total 1700 1720 Balance 1088 403 0123 Weight 133.2 kg 131.1 kg General appearance: PRESENT: no acute distress, cooperative, morbidly obese, well-developed, well-nourished Head exam: PRESENT: atraumatic, normocephalic Eye exam: PRESENT: conjunctiva pink, EOMI, PERRLA. ABSENT: scleral icterus Ear exam: PRESENT: normal external ear exam Mouth exam: PRESENT: moist, tongue midline Neck exam: ABSENT: carotid bruit, JVD, lymphadenopathy, thyromegaly Respiratory exam: PRESENT: clear to auscultation aroldo, decreased breath sounds - bibasilar, symmetrical, unlabored, other - supplemental oxygen. ABSENT: rales, rhonchi, wheezes Cardiovascular exam: PRESENT: RRR, +S1, +S2, tachycardia. ABSENT: diastolic murmur, rubs, systolic murmur Pulses: PRESENT: normal dorsalis pedis pul Vascular exam: PRESENT: normal capillary refill GI/Abdominal exam: PRESENT: normal bowel sounds, soft. ABSENT: distended, guarding, mass, organolmegaly, rebound, tenderness Rectal exam: PRESENT: deferred Extremities exam: PRESENT: full ROM. ABSENT: calf tenderness, clubbing, pedal edema Musculoskeletal exam: PRESENT: ambulatory Neurological exam: PRESENT: alert, awake, oriented to person, oriented to place, oriented to time, oriented to situation, CN II-XII grossly intact. ABSENT: motor sensory deficit Psychiatric exam: PRESENT: appropriate affect, normal mood. ABSENT: homicidal ideation, suicidal ideation Skin exam: PRESENT: dry, intact, warm. ABSENT: cyanosis, rash Results Laboratory Results: 08/09/19 04:23 08/09/19 04:23 08/05/19 10:59 Blood Blood Culture - Final NO GROWTH IN 5 DAYS 08/05/19 08/05/19 08/05/19 05:10 05:10 10:59 Creatine Kinase 39 CK-MB (CK-2) 0.73 Troponin I 0.051 0.112 08/05/19 16:43 Creatine Kinase CK-MB (CK-2) 1.07 Troponin I 0.062 Impressions: Abdomen MRI 08/05/19 00:00 IMPRESSION: 1. The common bile duct is dilated, measuring up to 1.1 cm in caliber. There is an elongated filling defect in the distal common bile duct within the pancreatic head concerning for one or more calculi, measuring 1.6 cm in length and 0.5 cm in caliber (series 6, image 51). 2. Cholelithiasis with mild distention of the gallbladder. Abdomen Ultrasound 08/05/19 07:56 IMPRESSION: Limited exam secondary to body habitus and bowel gas. 1. Cholelithiasis with dilated CBD measuring up to 11 mm. No definite intrahepatic ductal dilation. Findings suggestive of choledocholithiasis. Recommend correlation with LFTs for evidence of biliary obstruction. MRCP or ERCP could be considered for further confirmation. 2. Hepatic steatosis. Catheter Placement 08/08/19 00:00 IMPRESSION: IMAGE(S) OBTAINED DURING PROCEDURE. Fluoroscopy 08/08/19 00:00 IMPRESSION: IMAGE(S) OBTAINED DURING PROCEDURE. Chest/Abdomen CTA 08/09/19 00:00 IMPRESSION: 1. No CT evidence for pulmonary embolism. 2. Mild diffuse interstitial infiltrate, likely cardiogenic pulmonary edema. Cannot exclude an atypical interstitial pneumonia. 3. Cholelithiasis Chest X-Ray 08/10/19 00:00 IMPRESSION: NO ACUTE RADIOGRAPHIC FINDING IN THE CHEST. Assessment and Plan - Diagnosis (1) Calculus of common bile duct with acute cholecystitis Is this a current diagnosis for this admission?: Yes Plan: s/p ERCP by Dr. Jacques. Continue IV Zosyn. Planned laparoscopic cholecystectomy by surgery this week once respiratory status is optimized. Diet per surgery. Analgesics and antiemetics as needed. (2) Atrial flutter with rapid ventricular response Is this a current diagnosis for this admission?: Yes Plan: The patient Xarelto has been placed on hold secondary to ERCP and planned lap aroscopic cholecystectomy. Lap madison has been delayed secondary to acute respiratory respiratory distress (pulmonary edema). Therefore, will start on heparin drip. Patient remains in a.fib/a.flutter with persistent tachycardia; will increase diltiazem to 180 mg BID. We will continue home dose sotalol. Continue cardiac telemetry. Cardiac diet. (3) Abdominal pain Is this a current diagnosis for this admission?: Yes Plan: Improved. Secondary to #1. Management as above. (4) Fever Qualifiers: Fever type: unspecified Qualified Code(s): R50.9 - Fever, unspecified Is this a current diagnosis for this admission?: Yes Plan: Resolved; patient has been afebrile >48 hrs. Secondary to #1. Management as above. (5) Morbid obesity with BMI of 40.0-44.9, adult Is this a current diagnosis for this admission?: Yes Plan: BMI 43.9 Dietary and lifestyle modifications encouraged. Cardiac diet. hot frame tender is consulted. (6) UTI (urinary tract infection) Qualifiers: Urinary tract infection type: acute cystitis Hematuria presence: with hematuria Qualified Code(s): N30.01 - Acute cystitis with hematuria Is this a current diagnosis for this admission?: Yes Plan: Urinalysis positive for UTI. Urine culture demonstrates 2 strains of pansensitive E. coli. Blood cultures (08/05/2019) positive for E. coli in 1 set. Continue IV Zosyn; day #5. (7) Bacteremia Is this a current diagnosis for this admission?: Yes Plan: Blood cultures (08/05/2019) positive for E. coli in 1 set. Repeat cultures pending. Continue IV Zosyn; day #5. (8) Dyspnea Qualifiers: Dyspnea type: acute respiratory distress Qualified Code(s): R06.03 - Acute respiratory distress Is this a current diagnosis for this admission?: Yes Plan: Laparoscopic cholecystectomy delayed yesterday secondary to acute respiratory distress. CTA revealed mild diffuse interstitial infiltrates, likely cardiogenic. Follow-up chest x-ray today is benign. IV fluids have been placed on hold with the exception of heparin drip and IV Zosyn. We will start IV furosemide 40 mg twice daily. Schedule nebulizer treatments. Incentive spirometer to bedside. Out of bed for meals, ambulate, wean oxygen. - Plan Summary Summary: 08/05/2019 She has been seen by general surgery and feels that a MRCP needs to be done. We will also hold her Xarelto since she is a surgical candidate, was 48 hours. The antibiotics will be given. Patient's chronic atrial fib/flutter will be controlled. I explained all this to the patient. Diet will be regulated by general surgery. She is medically stable to transfer to the floor 08/06/2019 98 3, blood pressure 132/76, pulse 76, O2 sat 94% on room air White blood cell count today 5500 INR is down to 1.4 Electrolytes are normal Continue pain medicine, patient is currently n.p.o., anticipate surgery tomorrow 08/07/2019 She is up and ambulatory to the bathroom by herself Temperature 98.2, pulse 69, blood pressure 127/54, oxygen saturation 93% on room air Patient is growing out E. coli in her blood as well as her urine It does appear to be sensitive to her Zosyn that she is on I am going to recheck labs again this afternoon, n p.o. tonight at midnight recheck labs at 0600 tomorrow if labs from today are abnormal Patient has not been on Xarelto or heparin, however she is up and ambulatory. Will resume the heparin following surgery tomorrow when okayed by general surgery 08/08/2019 Temperature 98.4, pulse 68, blood pressure 127/54 White blood cell count 4600 , coags are normal She was on a full liquid diet until morning. Patient is passing gas had a bowel movement yesterday. ERCP is scheduled for today around 1729 Tentatively laparoscopic cholecystectomy tomorrow Patient only using morphine about once every 24 hours - Time Time Spent with patient: 35 or more minutes
[2019-08-10 13:59] LABS: ABSOLUTE BASOPHILS # (AUTO) 0.1 10^3/uL (0.0-0.2); ABSOLUTE EOSINOPHILS # (AUTO) 0.1 10^3/uL (0.0-0.6); ABSOLUTE LYMPHOCYTES (AUTO) 0.9 10^3/uL (0.5-4.7); ABSOLUTE MONOCYTES (AUTO) 0.9 10^3/uL (0.1-1.4); ABSOLUTE NEUT (AUTO) 6.3 10^3/uL (1.7-8.2); BASOPHILS % (AUTO) 0.7 % (0-2); EOSINOPHILS % (AUTO) 1.2 % (0-6); HEMATOCRIT 40.5 % (36.0-47.0); HEMOGLOBIN 13.1 g/dL (12.0-15.5); INTERNATIONAL RATION (INR) 1.01; LYMPHOCYTES % (AUTO) 10.8 % (13-45); MEAN CORPUSCULAR HEMOGLOBIN 28.6 pg (27.0-33.4); MEAN CORPUSCULAR HGB CONC 32.5 g/dL (32.0-36.0); MEAN CORPUSCULAR VOLUME 88 fl (80-97); MONOCYTES % (AUTO) 10.9 % (3-13); PARTIAL THROMBOPLASTIN TIME 26.9 SEC (23.5-35.8); PLATELET COUNT 198 10^3/uL (150-450); PROTHROMBIN TIME 13.3 SEC (11.4-15.4); RED BLOOD COUNT 4.59 10^6/uL (3.72-5.28); RED CELL DISTRIBUTION WIDTH 16.6 % (11.5-14.0); SEGMENTED NEUTROPHILS % (AUTO) 76.4 % (42-78); TOTAL CELLS COUNTED % (AUTO) 100 %; WHITE BLOOD COUNT 8.2 10^3/uL (4.0-10.5)
[2019-08-10] MEDS: IPRATROPIUM/ALBUTEROL 0.5-2.5 MG/3 ML AMPUL NEB SCH ×2 (14:03→20:39)
--- NOTE | 2019-08-10 16:04 | PDOC PROGRESS REPORT ---
Subjective Progress Note for:: 08/10/19 Subjective:: Still looks short of breath and somewhat tachypneic. A chest x-ray was obtained which showed no evidence of pulmonary edema. Reason For Visit: ABDOMINAL PAIN,CHRONIC AFIB,CHOLEDOCHOLITHIASIS Physical Exam Vital Signs: Temp Pulse Resp BP Pulse Ox 97.4 F 118 H 20 138/105 H 95 08/10/19 07:41 08/10/19 14:05 08/10/19 14:05 08/10/19 07:41 08/10/19 14:05 Intake & Output 08/09/19 08/10/19 08/11/19 06:59 06:59 06:59 Intake Total 2800 2330 1916 Output Total 1700 1720 Balance 3695 006 3369 Weight 133.2 kg 131.1 kg Exam: Still in A. fib and medicine to increase her diltiazem dose. Results Laboratory Results: 08/10/19 13:31 08/09/19 04:23 08/10/19 13:31 WBC 8.2 RBC 4.59 Hgb 13.1 Hct 40.5 MCV 88 MCH 28.6 MCHC 32.5 RDW 16.6 H Plt Count 198 Seg Neutrophils % 76.4 08/05/19 10:59 Blood Blood Culture - Final NO GROWTH IN 5 DAYS 08/05/19 08/05/19 08/05/19 05:10 05:10 10:59 Creatine Kinase 39 CK-MB (CK-2) 0.73 Troponin I 0.051 0.112 08/05/19 16:43 Creatine Kinase CK-MB (CK-2) 1.07 Troponin I 0.062 Impressions: Abdomen MRI 08/05/19 00:00 IMPRESSION: 1. The common bile duct is dilated, measuring up to 1.1 cm in caliber. There is an elongated filling defect in the distal common bile duct within the pancreatic head concerning for one or more calculi, measuring 1.6 cm in length and 0.5 cm in caliber (series 6, image 51). 2. Cholelithiasis with mild distention of the gallbladder. Abdomen Ultrasound 08/05/19 07:56 IMPRESSION: Limited exam secondary to body habitus and bowel gas. 1. Cholelithiasis with dilated CBD measuring up to 11 mm. No definite intrahepatic ductal dilation. Findings suggestive of choledocholithiasis. Recommend correlation with LFTs for evidence of biliary obstruction. MRCP or ERCP could be considered for further confirmation. 2. Hepatic steatosis. Catheter Placement 08/08/19 00:00 IMPRESSION: IMAGE(S) OBTAINED DURING PROCEDURE. Fluoroscopy 08/08/19 00:00 IMPRESSION: IMAGE(S) OBTAINED DURING PROCEDURE. Chest/Abdomen CTA 08/09/19 00:00 IMPRESSION: 1. No CT evidence for pulmonary embolism. 2. Mild diffuse interstitial infiltrate, likely cardiogenic pulmonary edema. Cannot exclude an atypical interstitial pneumonia. 3. Cholelithiasis Chest X-Ray 08/10/19 00:00 IMPRESSION: NO ACUTE RADIOGRAPHIC FINDING IN THE CHEST. Assessment & Plan - Diagnosis (1) Fever Qualifiers: Fever type: unspecified Qualified Code(s): R50.9 - Fever, unspecified Is this a current diagnosis for this admission?: Yes (2) Cholelithiasis Is this a current diagnosis for this admission?: Yes (3) Choledocholithiasis Is this a current diagnosis for this admission?: Yes - Time Time Spent with patient: 15-24 minutes - Inpatient Certification Medical Necessity: Need Close Monitoring Due to Risk of Patient Decompensation, Need for Surgery - Plan Summary Plan Summary: 69-year-old female post successful ERCP 08/08/[address] Guerra. ERCP however patient noted to be short of breath in the recovery room and appears to be persistent. Lap madison was held yesterday because of his shortness of breath which appears to be persistent until today. Chest x-ray today however showed no evidence of pulmonary edema. Medicine to increase her diltiazem for A. fib and continue to hold Xarelto. She does not look like a good candidate for laparoscopic cholecystectomy today. She will be reevaluated in the next 24 to 48 hours.
[2019-08-10] MEDS ORDERED: HEPARIN SOD (PORCINE) 1,000 UNIT/ML 10 ML VIAL IV PRN (16:08)
[2019-08-10 19:36] LABS: APPEARANCE,URINE SLIGHTLY-CLOUDY; BILIRUBIN,URINE NEGATIVE (NEGATIVE); COLOR,URINE YELLOW; GLUCOSE, URINE NEGATIVE (NEGATIVE); KETONES,URINE NEGATIVE (NEGATIVE); LEUKOCYTE ESTERASE,URINE SMALL (NEGATIVE); NITRITE,URINE NEGATIVE (NEGATIVE); PROTEIN,URINE NEGATIVE (NEGATIVE); URINE SPECIFIC GRAVITY 1.012; UROBILINOGEN,URINE NEGATIVE mg/dL (<2.0)
[2019-08-10] MEDS: DILTIAZEM HCL 180 MG CAPSULE.CR PO SCH (23:15)
[2019-08-11 03:32] LABS: HEMATOCRIT 38.2 % (36.0-47.0); HEMOGLOBIN 12.5 g/dL (12.0-15.5); MEAN CORPUSCULAR HEMOGLOBIN 28.8 pg (27.0-33.4); MEAN CORPUSCULAR HGB CONC 32.7 g/dL (32.0-36.0); MEAN CORPUSCULAR VOLUME 88 fl (80-97); PLATELET COUNT 203 10^3/uL (150-450); RED BLOOD COUNT 4.34 10^6/uL (3.72-5.28); RED CELL DISTRIBUTION WIDTH 16.7 % (11.5-14.0); WHITE BLOOD COUNT 6.4 10^3/uL (4.0-10.5)
[2019-08-11 03:59] LABS: ANION GAP 11 (5-19); BLOOD UREA NITROGEN 7 mg/dL (7-20); CALCIUM 9.1 mg/dL (8.4-10.2); CARBON DIOXIDE 31 mmol/L (22-30); CHLORIDE 102 mmol/L (98-107); GLUCOSE 121 mg/dL (75-110); POTASSIUM 3.3 mmol/L (3.6-5.0)
[2019-08-11] MEDS: IPRATROPIUM/ALBUTEROL 0.5-2.5 MG/3 ML AMPUL NEB SCH ×4 (04:11→20:58)
[2019-08-11] MEDS: PIPERACILLIN SODIUM/TAZOBACTAM 3.375 GM in NORMAL SALINE 100 ML IV SCH ×3 (05:17→17:27)
[2019-08-11] MEDS: DOCUSATE SODIUM 100 MG CAPSULE PO SCH (09:52)
[2019-08-11] MEDS: SOTALOL HCL 80 MG TABLET PO SCH ×2 (09:52→22:34)
[2019-08-11] MEDS: DILTIAZEM HCL 180 MG CAPSULE.CR PO SCH ×3 (09:52→23:53)
[2019-08-11] MEDS: FAMOTIDINE INJ/PF 20 MG/2 ML SDV IV SCH ×2 (09:52→22:33)
[2019-08-11] MEDS: POTASSIUM CHLORIDE 10 MEQ TABLET.ER PO SCH (09:52)
[2019-08-11] MEDS: FUROSEMIDE INJ/PF 40 MG/4 ML SDV IV SCH (09:52)
[2019-08-11] MEDS: LATANOPROST 0.005% OPH SOLN 2.5 ML OU SCH ×2 (09:53→22:33)
[2019-08-11 11:22] LABS: APPEARANCE,URINE CLEAR; BILIRUBIN,URINE NEGATIVE (NEGATIVE); COLOR,URINE COLORLESS; GLUCOSE, URINE NEGATIVE (NEGATIVE); KETONES,URINE NEGATIVE (NEGATIVE); LEUKOCYTE ESTERASE,URINE NEGATIVE (NEGATIVE); NITRITE,URINE NEGATIVE (NEGATIVE); PROTEIN,URINE NEGATIVE (NEGATIVE); URINE SPECIFIC GRAVITY 1.003; UROBILINOGEN,URINE NEGATIVE mg/dL (<2.0)
[2019-08-11] MEDS ORDERED: DEXTROSE 50%-WATER 25 GM/50 ML DISP.SYRIN IV PRN ×2 (13:20)
[2019-08-11] MEDS ORDERED: DEXTROSE 40% GEL 15 GM TUBE PO PRN ×2 (13:20)
[2019-08-11] MEDS ORDERED: GLUCAGON,HUMAN RECOMB 1 MG INJ SUBCUT PRN (13:20)
[2019-08-11 15:06] LABS: HEMATOCRIT 39.9 % (36.0-47.0); HEMOGLOBIN 12.9 g/dL (12.0-15.5); MEAN CORPUSCULAR HEMOGLOBIN 28.6 pg (27.0-33.4); MEAN CORPUSCULAR HGB CONC 32.4 g/dL (32.0-36.0); MEAN CORPUSCULAR VOLUME 88 fl (80-97); PLATELET COUNT 234 10^3/uL (150-450); RED BLOOD COUNT 4.52 10^6/uL (3.72-5.28); RED CELL DISTRIBUTION WIDTH 16.9 % (11.5-14.0); WHITE BLOOD COUNT 5.8 10^3/uL (4.0-10.5)
--- NOTE | 2019-08-11 15:46 | PDOC PROGRESS REPORT ---
Subjective Progress Note for:: 08/11/19 Subjective:: The patient is a 69-year-old female with a past medical history of atrial fibrillation, hypertension, and morbid obesity who was admitted 08/05/2019 for Acute cholecystitis. She was seen on morning rounds. Patient was found resting in bed, comfortably, on room air. She appears significantly improved today. She reports her dyspnea has resolved; she does have a short period (2-3 minutes) of increased work of breathing following activity which she reports is her baseline. She does recover quickly. She states that she is at her normal respiratory status and is feeling well today. She is looking forward to having her cholecystectomy. She denies fever, chills, chest pain, palpitations, dyspnea, orthopnea, cough, abdominal pain, nausea vomiting and diarrhea. She has no new questions or concerns at this time. No concerns per nursing. Reason For Visit: ABDOMINAL PAIN,CHRONIC AFIB,CHOLEDOCHOLITHIASIS Physical Exam Vital Signs: Temp Pulse Resp BP Pulse Ox 97.5 F 74 16 107/57 L 94 08/11/19 12:00 08/11/19 14:00 08/11/19 13:20 08/11/19 12:00 08/11/19 13:20 Intake & Output 08/10/19 08/11/19 08/12/19 06:59 06:59 06:59 Intake Total 2330 2116 200 Output Total 1720 550 200 Balance 610 1566 0 Weight 131.1 kg 130.7 kg General appearance: PRESENT: no acute distress, cooperative, morbidly obese, well-developed, well-nourished Head exam: PRESENT: atraumatic, normocephalic Eye exam: PRESENT: conjunctiva pink, EOMI, PERRLA. ABSENT: scleral icterus Ear exam: PRESENT: normal external ear exam Mouth exam: PRESENT: moist, tongue midline Respiratory exam: PRESENT: clear to auscultation aroldo, symmetrical, unlabored. ABSENT: rales, rhonchi, wheezes Cardiovascular exam: PRESENT: RRR, +S1, +S2. ABSENT: diastolic murmur, rubs, systolic murmur Pulses: PRESENT: normal dorsalis pedis pul Vascular exam: PRESENT: normal capillary refill GI/Abdominal exam: PRESENT: normal bowel sounds, soft. ABSENT: distended, guarding, mass, organolmegaly, rebound, tenderness Rectal exam: PRESENT: deferred Extremities exam: PRESENT: full ROM. ABSENT: calf tenderness, clubbing, pedal edema Musculoskeletal exam: PRESENT: ambulatory Neurological exam: PRESENT: alert, awake, oriented to person, oriented to place, oriented to time, oriented to situation, CN II-XII grossly intact. ABSENT: mo tor sensory deficit Psychiatric exam: PRESENT: appropriate affect, normal mood. ABSENT: homicidal ideation, suicidal ideation Skin exam: PRESENT: dry, intact, warm. ABSENT: cyanosis, rash Results Laboratory Results: 08/11/19 14:51 08/11/19 03:20 08/10/19 08/11/19 08/11/19 17:28 03:20 03:20 WBC 6.4 RBC 4.34 Hgb 12.5 Hct 38.2 MCV 88 MCH 28.8 MCHC 32.7 RDW 16.7 H Plt Count 203 Sodium 143.7 Potassium 3.3 L Chloride 102 Carbon Dioxide 31 H Anion Gap 11 BUN 7 Creatinine 0.56 Est GFR ( Amer) > 60 Glucose 121 H Calcium 9.1 Urine Color YELLOW Urine Appearance SLIGHTLY-CLOUDY Urine pH 7.0 Ur Specific [place] 1.012 Urine Protein NEGATIVE Urine Glucose (UA) NEGATIVE Urine Ketones NEGATIVE Urine Blood SMALL H Urine Nitrite NEGATIVE Ur Leukocyte Esterase SMALL H Urine WBC (Auto) 2 Urine RBC (Auto) 2 08/11/19 08/11/19 10:45 14:51 WBC 5.8 RBC 4.52 Hgb 12.9 Hct 39.9 MCV 88 MCH 28.6 MCHC 32.4 RDW 16.9 H Plt Count 234 Sodium Potassium Chloride Carbon Dioxide Anion Gap BUN Creatinine Est GFR ( Amer) Glucose Calcium Urine Color COLORLESS Urine Appearance CLEAR Urine pH 7.0 Ur Specific [place] 1.003 Urine Protein NEGATIVE Urine Glucose (UA) NEGATIVE Urine Ketones NEGATIVE Urine Blood NEGATIVE Urine Nitrite NEGATIVE Ur Leukocyte Esterase NEGATIVE Urine WBC (Auto) 0 Urine RBC (Auto) 0 08/05/19 10:59 Blood Blood Culture - Final NO GROWTH IN 5 DAYS 08/05/19 08/05/19 08/05/19 05:10 05:10 10:59 Creatine Kinase 39 CK-MB (CK-2) 0.73 Troponin I 0.051 0.112 08/05/19 16:43 Creatine Kinase CK-MB (CK-2) 1.07 Troponin I 0.062 Impressions: Abdomen MRI 08/05/19 00:00 IMPRESSION: 1. The common bile duct is dilated, measuring up to 1.1 cm in caliber. There is an elongated filling defect in the distal common bile duct within the pancreatic head concerning for one or more calculi, measuring 1.6 cm in length and 0.5 cm in caliber (series 6, image 51). 2. Cholelithiasis with mild distention of the gallbladder. Abdomen Ultrasound 08/05/19 07:56 IMPRESSION: Limited exam secondary to body habitus and bowel gas. 1. Cholelithiasis with dilated CBD measuring up to 11 mm. No definite intrahepatic ductal dilation. Findings suggestive of choledocholithiasis. Recommend correlation with LFTs for evidence of biliary obstruction. MRCP or ERCP could be considered for further confirmation. 2. Hepatic steatosis. Catheter Placement 08/08/19 00:00 IMPRESSION: IMAGE(S) OBTAINED DURING PROCEDURE. Fluoroscopy 08/08/19 00:00 IMPRESSION: IMAGE(S) OBTAINED DURING PROCEDURE. Chest/Abdomen CTA 08/09/19 00:00 IMPRESSION: 1. No CT evidence for pulmonary embolism. 2. Mild diffuse interstitial infiltrate, likely cardiogenic pulmonary edema. Cannot exclude an atypical interstitial pneumonia. 3. Cholelithiasis Chest X-Ray 08/10/19 00:00 IMPRESSION: NO ACUTE RADIOGRAPHIC FINDING IN THE CHEST. Assessment and Plan - Diagnosis (1) Calculus of common bile duct with acute cholecystitis Is this a current diagnosis for this admission?: Yes Plan: s/p ERCP by Dr. Jacques. Continue IV Zosyn. Planned laparoscopic cholecystectomy by surgery; respiratory status now optimized. Patient reports she is at her baseline respiratory status; lung sounds are clear, tachypnea and tachycardia are resolved, and she is maintaining oxygen saturations on room air. Diet per surgery; clear liquids and n.p.o. after midnight. Analgesics and antiemetics as needed. (2) Atrial flutter with rapid ventricular response Is this a current diagnosis for this admission?: Yes Plan: Now rate controlled. Xarelto has been placed on hold secondary to ERCP and planned laparoscopic cholecystectomy. Lap madison has been delayed secondary to acute respiratory respiratory distress (pulmonary edema). Therefore, have started on heparin drip. Discussed w/ Surgery; Heparin to be placed on hold 2 hours prior to OR time. Continue increased diltiazem 180 mg BID. We will continue home dose sotalol. Continue cardiac telemetry. Cardiac diet. (3) Abdominal pain Is this a current diagnosis for this admission?: Yes Plan: Improved. Secondary to #1. Management as above. (4) Fever Qualifiers: Fever type: unspecified Qualified Code(s): R50.9 - Fever, unspecified Is this a current diagnosis for this admission?: Yes Plan: Resolved; patient has been afebrile >48 hrs. Secondary to #1. Management as above. (5) Morbid obesity with BMI of 40.0-44.9, adult Is this a current diagnosis for this admission?: Yes Plan: BMI 43.9 Dietary and lifestyle modifications encouraged. Cardiac diet. adult education instructor is consulted. (6) UTI (urinary tract infection) Qualifiers: Urinary tract infection type: acute cystitis Hematuria presence: with hematuria Qualified Code(s): N30.01 - Acute cystitis with hematuria Is this a current diagnosis for this admission?: Yes Plan: Urinalysis positive for UTI. Urine culture demonstrates 2 strains of pansensitive E. coli. Blood cultures (08/05/2019) positive for E. coli in 1 set. Continue IV Zosyn; day #6. (7) Bacteremia Is this a current diagnosis for this admission?: Yes Plan: Blood cultures (08/05/2019) positive for E. coli in 1 set. Repeat cultures pending. Continue IV Zosyn; day #6. (8) Dyspnea Qualifiers: Dyspnea type: acute respiratory distress Qualified Code(s): R06.03 - Acute respiratory distress Is this a current diagnosis for this admission?: Yes Plan: Resolved; secondary to mild pulmonary edema. Laparoscopic cholecystectomy delayed secondary to acute respiratory distress. CTA revealed mild diffuse interstitial infiltrates, likely cardiogenic. Follow-up chest x-ray yesterday is benign. IV fluids have been placed on hold with the exception of heparin drip and IV Zosyn. Decrease IV furosemide 20 mg twice daily. Schedule nebulizer treatments. Incentive spirometer to bedside. Out of bed for meals, ambulate, wean oxygen. - Time Time Spent with patient: 25-34 minutes Medications reviewed and adjusted accordingly: Yes Anticipated discharge: Home Within: within 48 hours
[2019-08-11] MEDS: LEVALBUTEROL HCL NEB 1.25 MG/3 ML AMPUL NEB PRN (18:08)
[2019-08-11] MEDS ORDERED: FUROSEMIDE INJ/PF 20 MG/2 ML SDV IV SCH (22:00)
[2019-08-11] MEDS: MORPHINE SULFATE 10 MG/ML INJ IV PRN (22:33)
--- NOTE | 2019-08-11 22:56 | PDOC PROGRESS REPORT ---
Subjective Progress Note for:: 08/11/19 Subjective:: This is a 69-year-old female with a history of choledocholithiasis. She is status post ERCP with sphincterotomy. The patient initially had shortness of breath after her ERCP, but this has subsided. The patient denies chest pain, shortness of breath, fevers, chills, nausea, vomiting, dizziness, orthostasis, fatigue, malaise, blurry vision. Reason For Visit: ABDOMINAL PAIN,CHRONIC AFIB,CHOLEDOCHOLITHIASIS Physical Exam Vital Signs: Temp Pulse Resp BP Pulse Ox 98.1 F 85 18 122/60 91 L 08/11/19 19:53 08/11/19 20:58 08/11/19 20:58 08/11/19 19:53 08/11/19 21:20 Pulse Oximeter Nocturnal Start: 08/11/19 17:32 Freq: RTQ4 Status: Active Protocol: Document 08/11/19 21:20 [facility] (Rec: 08/11/19 22:17 [facility] [id number]) Nocturnal Pulse Oximetry Equipment Usage Equipment in Use Nocturnal Spo2 Charge Charge Now Oxygen Delivery Method (includes room Room Air air) O2 Sat by Pulse Oximetry (92-100) 91 Continuous Pulse Oximeter Set Up Yes Continuous SpO2 Discontinued No Continuous SpO2 Machine # [id number] Intake & Output 08/10/19 08/11/19 08/12/19 06:59 06:59 06:59 Intake Total 2330 2116 1200 Output Total 1720 550 400 Balance 610 1566 800 Weight 131.1 kg 130.7 kg General appearance: PRESENT: obese Eye exam: PRESENT: EOMI, PERRLA. ABSENT: scleral icterus Mouth exam: PRESENT: moist, neck supple Neck exam: ABSENT: meningismus, tenderness, thyromegaly, tracheal deviation Respiratory exam: PRESENT: unlabored. ABSENT: tachypnea Cardiovascular exam: PRESENT: RRR GI/Abdominal exam: PRESENT: soft. ABSENT: distended, firm, tenderness Rectal exam: PRESENT: deferred Extremities exam: ABSENT: clubbing Musculoskeletal exam: ABSENT: deformity Neurological exam: PRESENT: alert, awake, oriented to person, oriented to place, oriented to time, oriented to situation, CN II-XII grossly intact Psychiatric exam: ABSENT: agitated, anxious Focused psych exam: ABSENT: delusional Skin exam: ABSENT: cyanosis, erythema, jaundice Results Laboratory Results: 08/11/19 14:51 08/11/19 03:20 08/11/19 08/11/19 08/11/19 03:20 03:20 10:45 WBC 6.4 RBC 4.34 Hgb 12.5 Hct 38.2 MCV 88 MCH 28.8 MCHC 32.7 RDW 16.7 H Plt Count 203 Sodium 143.7 Potassium 3.3 L Chloride 102 Carbon Dioxide 31 H Anion Gap 11 BUN 7 Creatinine 0.56 Est GFR ( Amer) > 60 Glucose 121 H Calcium 9.1 Urine Color COLORLESS Urine Appearance CLEAR Urine pH 7.0 Ur Specific [place] 1.003 Urine Protein NEGATIVE Urine Glucose (UA) NEGATIVE Urine Ketones NEGATIVE Urine Blood NEGATIVE Urine Nitrite NEGATIVE Ur Leukocyte Esterase NEGATIVE Urine WBC (Auto) 0 Urine RBC (Auto) 0 08/11/19 14:51 WBC 5.8 RBC 4.52 Hgb 12.9 Hct 39.9 MCV 88 MCH 28.6 MCHC 32.4 RDW 16.9 H Plt Count 234 Sodium Potassium Chloride Carbon Dioxide Anion Gap BUN Creatinine Est GFR ( Amer) Glucose Calcium Urine Color Urine Appearance Urine pH Ur Specific [place] Urine Protein Urine Glucose (UA) Urine Ketones Urine Blood Urine Nitrite Ur Leukocyte Esterase Urine WBC (Auto) Urine RBC (Auto) 08/05/19 08/05/19 08/05/19 05:10 05:10 10:59 Creatine Kinase 39 CK-MB (CK-2) 0.73 Troponin I 0.051 0.112 08/05/19 16:43 Creatine Kinase CK-MB (CK-2) 1.07 Troponin I 0.062 Impressions: Abdomen MRI 08/05/19 00:00 IMPRESSION: 1. The common bile duct is dilated, measuring up to 1.1 cm in caliber. There is an elongated filling defect in the distal common bile duct within the pancreatic head concerning for one or more calculi, measuring 1.6 cm in length and 0.5 cm in caliber (series 6, image 51). 2. Cholelithiasis with mild distention of the gallbladder. Abdomen Ultrasound 08/05/19 07:56 IMPRESSION: Limited exam secondary to body habitus and bowel gas. 1. Cholelithiasis with dilated CBD measuring up to 11 mm. No definite intrahepatic ductal dilation. Findings suggestive of choledocholithiasis. Recommend correlation with LFTs for evidence of biliary obstruction. MRCP or ERCP could be considered for further confirmation. 2. Hepatic steatosis. Catheter Placement 08/08/19 00:00 IMPRESSION: IMAGE(S) OBTAINED DURING PROCEDURE. Fluoroscopy 08/08/19 00:00 IMPRESSION: IMAGE(S) OBTAINED DURING PROCEDURE. Chest/Abdomen CTA 08/09/19 00:00 IMPRESSION: 1. No CT evidence for pulmonary embolism. 2. Mild diffuse interstitial infiltrate, likely cardiogenic pulmonary edema. Cannot exclude an atypical interstitial pneumonia. 3. Cholelithiasis Chest X-Ray 08/10/19 00:00 IMPRESSION: NO ACUTE RADIOGRAPHIC FINDING IN THE CHEST. Assessment & Plan - Diagnosis (1) Choledocholithiasis Is this a current diagnosis for this admission?: Yes - Time Time Spent with patient: Less than 15 minutes - Plan Summary Plan Summary: This is a 69-year-old female with a recent history of choledocholithiasis. The patient is status post ERCP. Several days ago, she had shortness of breath. This has subsided. I have discussed the case with the hospitalist today. They have cleared her for surgery. Plan for operative intervention tomorrow. Risks/benefits discussed, informed consent obtained, and all questions answered.
[2019-08-12] MEDS: PIPERACILLIN SODIUM/TAZOBACTAM 3.375 GM in NORMAL SALINE 100 ML IV SCH ×5 (00:38→23:28)
[2019-08-12] MEDS: IPRATROPIUM/ALBUTEROL 0.5-2.5 MG/3 ML AMPUL NEB SCH ×4 (02:57→20:57)
[2019-08-12 05:07] LABS: PROTHROMBIN TIME 14.3 SEC (11.4-15.4)
[2019-08-12 05:42] LABS: PARTIAL THROMBOPLASTIN TIME 150.6 SEC (23.5-35.8)
[2019-08-12 05:54] LABS: ANION GAP 10 (5-19); BLOOD UREA NITROGEN 5 mg/dL (7-20); CALCIUM 8.9 mg/dL (8.4-10.2); CARBON DIOXIDE 31 mmol/L (22-30); CHLORIDE 103 mmol/L (98-107); GLUCOSE 100 mg/dL (75-110)
[2019-08-12] MEDS: POTASSIUM CHLORIDE 20 MEQ/50 ML RTU IV SCH ×2 (07:40→09:39)
[2019-08-12] MEDS: ACETAMINOPHEN 325 MG TABLET PO PRN (07:48)
[2019-08-12] MEDS ORDERED: SUCCINYLCHOLINE CHLORIDE INJ 200 MG/10 ML VIAL ONE (09:03)
[2019-08-12] MEDS ORDERED: ROCURONIUM BROMIDE INJ 50 MG/5 ML VIAL IV ONE (09:03)
[2019-08-12] MEDS: DILTIAZEM HCL 180 MG CAPSULE.CR PO SCH ×2 (09:37→23:28)
[2019-08-12] MEDS: LATANOPROST 0.005% OPH SOLN 2.5 ML OU SCH ×2 (09:38→23:34)
[2019-08-12] MEDS: POTASSIUM CHLORIDE 10 MEQ TABLET.ER PO SCH (09:38)
[2019-08-12] MEDS: FAMOTIDINE INJ/PF 20 MG/2 ML SDV IV SCH ×2 (09:38→23:27)
[2019-08-12] MEDS: DOCUSATE SODIUM 100 MG CAPSULE PO SCH (09:38)
[2019-08-12] MEDS: SOTALOL HCL 80 MG TABLET PO SCH ×2 (09:38→23:29)
[2019-08-12] MEDS ORDERED: ONDANSETRON HCL INJ/PF 4 MG/2 ML SDV ONE (10:46)
[2019-08-12] MEDS ORDERED: FENTANYL CITRATE INJ/PF 100 MCG/2 ML AMPUL ONE (10:46)
[2019-08-12] MEDS ORDERED: PROPOFOL INJ 200 MG/20 ML VIAL IV ONE (10:46)
[2019-08-12] MEDS ORDERED: MIDAZOLAM 2 MG/2 ML INJ ONE (10:46)
[2019-08-12] MEDS ORDERED: SUGAMMADEX SODIUM 200 MG/2 ML SDV IV ONE (10:46)
[2019-08-12] MEDS ORDERED: DEXAMETHASONE SOD PHOSPHATE INJ 4 MG/1 ML VIAL ONE (10:46)
[2019-08-12] MEDS ORDERED: BUPIVACAINE HCL 0.25 % INJ/PF (2.5 MG/1 ML) 30 ML VIAL ONE (10:58)
[2019-08-12] MEDS ORDERED: PROMETHAZINE HCL INJ 25 MG/1 ML VIAL IV PRN (12:03)
[2019-08-12] MEDS ORDERED: DIPHENHYDRAMINE HCL 50 MG/ML VIAL IV PRN (12:03)
[2019-08-12] MEDS ORDERED: MORPHINE SULFATE 10 MG/ML INJ IV PRN (12:03)
[2019-08-12] MEDS ORDERED: FENTANYL CITRATE INJ/PF 100 MCG/2 ML AMPUL IV PRN ×3 (12:03)
[2019-08-12] MEDS ORDERED: MEPERIDINE HCL/PF INJ 25 MG/1 ML DISP.SYRIN IV PRN (12:03)
[2019-08-12] MEDS ORDERED: BUPIVACAINE HCL 0.25 % INJ/PF (2.5 MG/1 ML) 30 ML VIAL INJ ONE ×2 (12:25→14:20)
--- NOTE | 2019-08-12 13:51 | PDOC PROGRESS REPORT ---
Subjective Progress Note for:: 08/12/19 Subjective:: The patient is a 69-year-old female with a past medical history of atrial fibrillation, hypertension, and morbid obesity who was admitted 08/05/2019 for Acute cholecystitis. She was seen on morning rounds. Patient was found resting in bed, comfortably, on room air. She states that she is at her normal respiratory status and is feeling well today. She is looking forward to having her cholecystectomy today. She denies fever, chills, chest pain, palpitations, dyspnea, orthopnea, cough, abdominal pain, nausea vomiting and diarrhea. She has no new questions or concerns at this time. No concerns per nursing. Reason For Visit: ABDOMINAL PAIN,CHRONIC AFIB,CHOLEDOCHOLITHIASIS Physical Exam Vital Signs: Temp Pulse Resp BP Pulse Ox 97.6 F 89 16 108/68 94 08/12/19 10:04 08/12/19 10:04 08/12/19 10:04 08/12/19 10:04 08/12/19 10:04 Pulse Oximeter Nocturnal Start: 08/11/19 17:32 Freq: RTQ4 Status: Complete Protocol: Document 08/12/19 04:34 [facility] (Rec: 08/12/19 04:34 [facility] [id number]) Nocturnal Pulse Oximetry Equipment Usage Equipment in Use Nocturnal Spo2 Charge Charge Now Oxygen Delivery Method (includes room Room Air air) O2 Sat by Pulse Oximetry (92-100) 92 Continuous SpO2 Machine # [id number] Intake & Output 08/11/19 08/12/19 08/13/19 06:59 06:59 06:59 Intake Total 2516 1910 50 Output Total 550 1200 Balance 1566 710 50 Weight 130.7 kg 129.5 kg General appearance: PRESENT: no acute distress, cooperative, morbidly obese, well-developed, well-nourished Head exam: PRESENT: atraumatic, normocephalic Eye exam: PRESENT: conjunctiva pink, EOMI, PERRLA. ABSENT: scleral icterus Ear exam: PRESENT: normal external ear exam Mouth exam: PRESENT: moist, tongue midline Respiratory exam: PRESENT: clear to auscultation aroldo, symmetrical, unlabored. ABSENT: rales, rhonchi, wheezes Cardiovascular exam: PRESENT: RRR. ABSENT: diastolic murmur, rubs, systolic murmur Pulses: PRESENT: normal dorsalis pedis pul Vascular exam: PRESENT: normal capillary refill GI/Abdominal exam: PRESENT: normal bowel sounds, soft. ABSENT: distended, guarding, mass, organolmegaly, rebound, tenderness Rectal exam: PRESENT: deferred Extremities exam: PRESENT: full ROM. ABSENT: calf tenderness, clubbing, pedal edema Neurological exam: PRESENT: alert, awake, oriented to person, oriented to place, oriented to time, oriented to situation, CN II-XII grossly intact. ABSENT: motor sensory deficit Psychiatric exam: PRESENT: appropriate affect, normal mood. ABSENT: homicidal ideation, suicidal ideation Skin exam: PRESENT: dry, intact, warm. ABSENT: cyanosis, rash Results Laboratory Results: 08/11/19 14:51 08/12/19 04:27 08/11/19 08/12/19 14:51 04:27 WBC 5.8 RBC 4.52 Hgb 12.9 Hct 39.9 MCV 88 MCH 28.6 MCHC 32.4 RDW 16.9 H Plt Count 234 Sodium 143.7 Potassium 3.0 L* Chloride 103 Carbon Dioxide 31 H Anion Gap 10 BUN 5 L Creatinine 0.51 L Est GFR ( Amer) > 60 Glucose 100 Calcium 8.9 08/05/19 08/05/19 08/05/19 05:10 05:10 10:59 Creatine Kinase 39 CK-MB (CK-2) 0.73 Troponin I 0.051 0.112 08/05/19 16:43 Creatine Kinase CK-MB (CK-2) 1.07 Troponin I 0.062 Impressions: Abdomen MRI 08/05/19 00:00 IMPRESSION: 1. The common bile duct is dilated, measuring up to 1.1 cm in caliber. There is an elongated filling defect in the distal common bile duct within the pancreatic head concerning for one or more calculi, measuring 1.6 cm in length and 0.5 cm in caliber (series 6, image 51). 2. Cholelithiasis with mild distention of the gallbladder. Abdomen Ultrasound 08/05/19 07:56 IMPRESSION: Limited exam secondary to body habitus and bowel gas. 1. Cholelithiasis with dilated CBD measuring up to 11 mm. No definite intrahepatic ductal dilation. Findings suggestive of choledocholithiasis. Recommend correlation with LFTs for evidence of biliary obstruction. MRCP or ERCP could be considered for further confirmation. 2. Hepatic steatosis. Catheter Placement 08/08/19 00:00 IMPRESSION: IMAGE(S) OBTAINED DURING PROCEDURE. Fluoroscopy 08/08/19 00:00 IMPRESSION: IMAGE(S) OBTAINED DURING PROCEDURE. Chest/Abdomen CTA 08/09/19 00:00 IMPRESSION: 1. No CT evidence for pulmonary embolism. 2. Mild diffuse interstitial infiltrate, likely cardiogenic pulmonary edema. Cannot exclude an atypical interstitial pneumonia. 3. Cholelithiasis Chest X-Ray 08/10/19 00:00 IMPRESSION: NO ACUTE RADIOGRAPHIC FINDING IN THE CHEST. Assessment and Plan - Diagnosis (1) Calculus of common bile duct with acute cholecystitis Is this a current diagnosis for this admission?: Yes Plan: s/p ERCP by Dr. Jacques. Continue IV Zosyn. Planned laparoscopic cholecystectomy by surgery today. Respiratory status now optimized. Patient reports she is at her baseline respiratory status; lung sounds are clear, tachypnea and tachycardia are resolved, and she is maintaining oxygen saturations on room air. Diet per surgery. Analgesics and antiemetics as needed. (2) Atrial flutter with rapid ventricular response Is this a current diagnosis for this admission?: Yes Plan: Now rate controlled. Xarelto has been placed on hold secondary to ERCP and planned laparoscopic cholecystectomy. Lap madison has been delayed secondary to acute respiratory respiratory distress (pulmonary edema). Therefore, have started on heparin drip. Discussed w/ Surgery; Heparin to be placed on hold 2 hours prior to OR time, resume 6 hrs post-op. Transition back to Xarelto at d/c. Continue diltiazem 180 mg BID. We will continue home dose sotalol. Continue cardiac telemetry. Cardiac diet. (3) Abdominal pain Is this a current diagnosis for this admission?: Yes Plan: Improved. Secondary to #1. Management as above. (4) Fever Qualifiers: Fever type: unspecified Qualified Code(s): R50.9 - Fever, unspecified Is this a current diagnosis for this admission?: Yes Plan: Resolved; patient has been afebrile >48 hrs. Secondary to #1. Management as above. (5) Morbid obesity with BMI of 40.0-44.9, adult Is this a current diagnosis for this admission?: Yes Plan: BMI 43.4 Dietary and lifestyle modifications encouraged. Cardiac diet. senior firewall engineer is consulted. (6) UTI (urinary tract infection) Qualifiers: Urinary tract infection type: acute cystitis Hematuria presence: with hematuria Qualified Code(s): N30.01 - Acute cystitis with hematuria Is this a current diagnosis for this admission?: Yes Plan: Urinalysis positive for UTI. Urine culture demonstrates 2 strains of pansensitive E. coli. Blood cultures (08/05/2019) positive for E. coli in 1 set. Follow up blood cultures (08/11/19) are negative at 24 hrs Continue IV Zosyn; day #7. (7) Bacteremia Is this a current diagnosis for this admission?: Yes Plan: Blood cultures (08/05/2019) positive for E. coli in 1 set. Repeat cultures (08/11/19) are negative to date. Continue IV Zosyn; day #7. (8) Dyspnea Qualifiers: Dyspnea type: acute respiratory distress Qualified Code(s): R06.03 - Acute respiratory distress Is this a current diagnosis for this admission?: Yes Plan: Resolved; secondary to mild pulmonary edema. Laparoscopic cholecystectomy delayed secondary to acute respiratory distress. CTA revealed mild diffuse interstitial infiltrates, likely cardiogenic. Follow-up chest x-ray yesterday is benign. IV fluids have been placed on hold with the exception of heparin drip and IV Zosyn. Discontinue IV furosemid; may require additional doses postoperatively. Schedule nebulizer treatments. Incentive spirometer to bedside. Out of bed for meals, ambulate, wean oxygen. - Time Time Spent with patient: 25-34 minutes Medications reviewed and adjusted accordingly: Yes Anticipated discharge: Home Within: within 24 hours
--- NOTE | 2019-08-12 14:35 | Operative Report ---
Operative Report DATE OF SURGERY: 08/12/19 PREOPERATIVE DIAGNOSIS: 1. Cholelithiasis with cholecystitis. 2. Status post ERCP for choledocholithiasis. 3. Obesity. 4. Atrial flutter. 5. Chronic dyspnea. 6. Chronic anticoagulation therapy. 7. Previous abdominal wall surgery with mesh implantation POSTOPERATIVE DIAGNOSIS: Same with enterotomy and extensive intra-abdominal adhesions OPERATION: 1. Laparoscopic cholecystectomy. 2. Laparoscopic lysis of adhesi ons, extensive. 3. Mini, limited laparotomy, open lysis of adhesions, and 2 layer closure of small bowel enterotomy. 4. Subcutaneous and subcostal drain placement SURGEON: NAOMI HOPE 1ST MEDICAL ASSISTANT PER DIEM: PAUL MCGRAW ANESTHESIA: GA TISSUE REMOVED OR ALTERED: 1 gallbladder with stones COMPLICATIONS: Intraoperative enterotomy ESTIMATED BLOOD LOSS: 80 cc PROCEDURE: The patient was taken to the preop holding area to the main operating room where general anesthesia was induced. Arms were abducted, abdomen prepped and draped in a sterile fashion. Surgical plan and surgical timeout were conducted. Findings were significant for midline scar consistent with previous laparotomy, and history of mesh placement. For this reason the right upper quadrant was chosen as a point of entry into the peritoneal cavity. Subcostal stab was made with a #15 blade, Veress needle inserted the peritoneal cavity pneumoperitoneum was established uneventfully. The Veress needle was removed, and a 5 mm port was inserted and a 5 mm viewing scope was inserted. Findings were significant for dense adhesions throughout the midline, as well as the pelvis. We were able to get a second 5 mm port in the right subcostal, lateral position. From this trajectory, using the LigaSure energy device, extensive adhesio lysis was undertaken. The tissue taken down was primarily fatty tissue. After approximately 15 minutes of adhesio lysis, I was able to get a third port in the patient in the sub-xiphoid position on a rather acute angle, avoiding any adhesions. From here we continue to take down adhesions in midline and attempt to get a fourth port in. In the process of using gentle sweeping with the LigaSure device, an enterotomy was created. There was no spillage of bile. I felt that repair of the enterotomy open would be the most appropriate and safe next step. The midline scar midway between the epigastric area and umbilicus was opened up with a #10 blade. Subcutaneous tissue was divided with electrocautery, then the mass was divided. The length of this incision was approximately 10 cc. The superior aspect of the abdominal wall consisted of minimal fascia and Marlex mesh. Below this going towards the umbilicus was a semicircular piece of [place]. Only a portion of the [place] was divided but the majority of the Mar[place] was divided allowing entry into the peritoneal cavity. We now lysed adhesions under direct visualization, as well as a manipulated the small bowel gently with gloved hands. The tissue was very friable. There was no evidence of small bowel spillage. We did identify the loop of small bowel that have a hole and brought it up into the small open mini laparotomy wound is best we could without injuring any further loops of bowel. The 1 to 1-1/2 cm enterotomy was closed on a diagonal 2 layers, the inner layer with 3-0 Vicryl and the outer layer with a 3-0 suture. I checked the bowel for integrity and it appeared to be patent with a decent lumen. The small bowel was allowed to receive back into the peritoneal cavity. We now placed a small Pedro device in the wound for occlusion, as well as multiple Allis clamps along the length of the Marlex mesh to role for future pneumoperitoneum. Once this is accomplished we reestablished the pneumoperitoneum successfully. We now placed a fourth port in the paramedian position cephalad and lateral to the umbilicus. The patient was placed in reverse Trendelenburg position, and graspers were placed on the gallbladder. The gallbladder was removed in a standard fashion from the infundibulum working distally. The neck of the gallbladder at its junction with the cystic duct was dissected out. The tissue was very friable. The cystic artery was identified and a clip placed on it proximally. It simply from its distal source so there was only 1 clip applied. The junction with the cystic duct was now dissected out and the triangle opened widely. Photos were taken. We remove the fatty tissue from around the cystic duct, clipped the cystic duct 2 times and proximally, 1 time distally divided. The cystic duct stump retracted and 1 we examined it, there was evidence of bile leaking from it. We at this point elected to remove the gallbladder from the liver bed using a combination of hook and a LigaSure dissector. The specimen was passed off to the side, and we directed our attention to the cystic duct stump. We used the fan retractor to optimize exposure. We retrieved to the cystic duct stump, and determined that the clips were not adequately placed across the stump. Those misplaced clips were removed, and an Endoloop was secured around the stump under direct visualization. This prevented any further bile from leaking. The sub-xiphoid port was changed over to 10 mm in an Endobag was placed through the 10 mm port, and the gallbladder and stones were placed in it successfully and removed from the patient. Dr. Hope inspected the gallbladder on the back table and it was found to contain the gallbladder, as well as stones with 1 clip on the cystic duct transection point. At this point I had my colleague Dr. Hidalgo come into the room and inspect what we had accomplished. He felt that the hearing of the cystic duct was factory. There was no evidence of bile leaking from the operative field. A large Gianni drain was placed through the lateral port site incision and secured to the skin with 2-0 Prolene suture and its drainage and placed in the subhepatic space. We reinspected the peritoneal cavity and there was no evidence of bile or mechanical bleeding. Of note, also inspected the area where the open lysis of adhesions had taken place in midline, and there was no evidence of bile leaking from here. Dr. Mcgraw scrubbed and assisted with the closure of the abdomen. We felt the operation was complete. Sponge and needle counts are correct. The mini laparotomy incision was closed with approximately 8 [id number] 0 PDS sutures essentially approximating previously divided [place] mesh, as well as the polypropylene mesh. A large Gianni drain was placed to drain the subcutaneous space above the mesh, and all incisions closed with skin sabina. Second drain was secured to the skin with a 2-0 Prolene suture. The tolerated the procedure well. She had no hemodynamic or cardiovascular difficulties and was extubated and taken to recovery room in stable condition.
[2019-08-12] MEDS: FENTANYL CITRATE INJ/PF 100 MCG/2 ML AMPUL ONE ×2 (14:49→15:04)
[2019-08-12] MEDS ORDERED: IPRATROPIUM/ALBUTEROL 0.5-2.5 MG/3 ML AMPUL NEB ONE (15:22)
[2019-08-12] MEDS ORDERED: KETOROLAC TROMETHAMINE INJ/PF 30 MG/1 ML SDV ONE (16:14)
[2019-08-12] MEDS ORDERED: FUROSEMIDE INJ/PF 40 MG/4 ML SDV ONE (16:37)
[2019-08-12 17:23] LABS: HEMATOCRIT 40.7 % (36.0-47.0); HEMOGLOBIN 13.2 g/dL (12.0-15.5); MEAN CORPUSCULAR HEMOGLOBIN 28.6 pg (27.0-33.4); MEAN CORPUSCULAR HGB CONC 32.3 g/dL (32.0-36.0); MEAN CORPUSCULAR VOLUME 89 fl (80-97); PLATELET COUNT 269 10^3/uL (150-450); RED CELL DISTRIBUTION WIDTH 16.9 % (11.5-14.0)
[2019-08-12 17:32] LABS: WHITE BLOOD COUNT 12.9 10^3/uL (4.0-10.5)
[2019-08-12] MEDS: MORPHINE SULFATE 10 MG/ML INJ IV PRN ×2 (18:50→23:30)
[2019-08-12 19:51] LABS: ANION GAP 11 (5-19); BLOOD UREA NITROGEN 6 mg/dL (7-20); CARBON DIOXIDE 29 mmol/L (22-30); CHLORIDE 103 mmol/L (98-107); GLUCOSE 160 mg/dL (75-110); POTASSIUM 3.9 mmol/L (3.6-5.0)
[2019-08-12] MEDS: ONDANSETRON HCL INJ/PF 4 MG/2 ML SDV IV PRN (23:27)
[2019-08-13] MEDS: IPRATROPIUM/ALBUTEROL 0.5-2.5 MG/3 ML AMPUL NEB SCH ×4 (02:25→19:42)
[2019-08-13 04:42] LABS: HEMATOCRIT 39.9 % (36.0-47.0); HEMOGLOBIN 12.8 g/dL (12.0-15.5); MEAN CORPUSCULAR HEMOGLOBIN 28.2 pg (27.0-33.4); MEAN CORPUSCULAR HGB CONC 32.1 g/dL (32.0-36.0); MEAN CORPUSCULAR VOLUME 88 fl (80-97); PLATELET COUNT 266 10^3/uL (150-450); RED BLOOD COUNT 4.54 10^6/uL (3.72-5.28); RED CELL DISTRIBUTION WIDTH 16.4 % (11.5-14.0); WHITE BLOOD COUNT 13.3 10^3/uL (4.0-10.5)
[2019-08-13 04:54] LABS: ANION GAP 7 (5-19); BLOOD UREA NITROGEN 7 mg/dL (7-20); CALCIUM 8.9 mg/dL (8.4-10.2); CARBON DIOXIDE 30 mmol/L (22-30); CHLORIDE 107 mmol/L (98-107); GLUCOSE 131 mg/dL (75-110); POTASSIUM 3.8 mmol/L (3.6-5.0)
[2019-08-13] MEDS: PIPERACILLIN SODIUM/TAZOBACTAM 3.375 GM in NORMAL SALINE 100 ML IV SCH ×3 (05:57→17:18)
[2019-08-13] MEDS: MORPHINE SULFATE 10 MG/ML INJ IV PRN ×4 (06:08→19:01)
[2019-08-13 07:06] LABS: APPEARANCE,URINE SLIGHTLY-CLOUDY; BILIRUBIN,URINE NEGATIVE (NEGATIVE); GLUCOSE, URINE NEGATIVE (NEGATIVE); KETONES,URINE NEGATIVE (NEGATIVE); LEUKOCYTE ESTERASE,URINE NEGATIVE (NEGATIVE); NITRITE,URINE NEGATIVE (NEGATIVE); PROTEIN,URINE 100 mg/dL (NEGATIVE); URINE SPECIFIC GRAVITY 1.027; UROBILINOGEN,URINE NEGATIVE mg/dL (<2.0)
[2019-08-13 07:07] LABS: COLOR,URINE YELLOW
[2019-08-13] MEDS: POTASSIUM CHLORIDE 20 MEQ/50 ML RTU IV SCH (07:38)
--- NOTE | 2019-08-13 07:39 | PDOC PROGRESS REPORT ---
Subjective Progress Note for:: 08/13/19 Subjective:: min abd pain still with mild shortness of breath Reason For Visit: ABDOMINAL PAIN,CHRONIC AFIB,CHOLEDOCHOLITHIASIS Physical Exam Vital Signs: Temp Pulse Resp BP Pulse Ox 98.7 F 84 20 135/72 H 93 08/12/19 23:30 08/13/19 07:00 08/13/19 02:26 08/12/19 23:30 08/13/19 02:26 Pulse Oximeter Nocturnal Start: 08/11/19 17:32 Freq: RTQ4 Status: Complete Protocol: Document 08/12/19 04:34 DBE (Rec: 08/12/19 04:34 DBE [email or web address]) Nocturnal Pulse Oximetry Equipment Usage Equipment in Use Nocturnal Spo2 Charge Charge Now Oxygen Delivery Method (includes room Room Air air) O2 Sat by Pulse Oximetry (92-100) 92 Continuous SpO2 Machine # [id number] Intake & Output 08/12/19 08/13/19 08/14/19 06:59 06:59 06:59 Intake Total 1910 2020 Output Total 1200 210 Balance 710 1810 Weight 129.5 kg 128.2 kg General appearance: PRESENT: no acute distress, morbidly obese Head exam: PRESENT: normocephalic Eye exam: PRESENT: EOMI Ear exam: PRESENT: normal external ear exam Mouth exam: PRESENT: moist Neck exam: PRESENT: full ROM Respiratory exam: PRESENT: accessory muscle use, wheezes Cardiovascular exam: PRESENT: RRR Pulses: PRESENT: normal radial pulses, normal femoral pulses Vascular exam: PRESENT: normal capillary refill GI/Abdominal exam: PRESENT: other - soft, + incisional tenderness taylor's sl bloody, min op Rectal exam: PRESENT: deferred Extremities exam: PRESENT: full ROM Musculoskeletal exam: PRESENT: full ROM Neurological exam: PRESENT: alert, awake, oriented to person, oriented to place Psychiatric exam: PRESENT: appropriate affect Skin exam: PRESENT: dry Results Laboratory Results: 08/13/19 04:00 08/13/19 04:00 08/12/19 08/12/19 08/12/19 17:14 19:13 19:13 WBC 12.9 H D RBC 4.60 Hgb 13.2 Hct 40.7 MCV 89 MCH 28.6 MCHC 32.3 RDW 16.9 H Plt Count 269 Sodium 143.3 Potassium 3.9 Chloride 103 Carbon Dioxide 29 Anion Gap 11 BUN 6 L Creatinine 0.57 Est GFR ( Amer) > 60 Glucose 160 H Calcium 9.0 Magnesium 1.4 L Urine Color Urine Appearance Urine pH Ur Specific [place] Urine Protein Urine Glucose (UA) Urine Ketones Urine Blood Urine Nitrite Ur Leukocyte Esterase Urine WBC (Auto) Urine RBC (Auto) 08/13/19 08/13/19 08/13/19 04:00 04:00 06:30 WBC 13.3 H RBC 4.54 Hgb 12.8 Hct 39.9 MCV 88 MCH 28.2 MCHC 32.1 RDW 16.4 H Plt Count 266 Sodium 144.3 Potassium 3.8 Chloride 107 Carbon Dioxide 30 Anion Gap 7 BUN 7 Creatinine 0.50 L Est GFR ( Amer) > 60 Glucose 131 H Calcium 8.9 Magnesium Urine Color YELLOW Urine Appearance SLIGHTLY-CLOUDY Urine pH 6.0 Ur Specific [place] 1.027 Urine Protein 100 H Urine Glucose (UA) NEGATIVE Urine Ketones NEGATIVE Urine Blood SMALL H Urine Nitrite NEGATIVE Ur Leukocyte Esterase NEGATIVE Urine WBC (Auto) 4 Urine RBC (Auto) 23 08/05/19 08/05/19 08/05/19 05:10 05:10 10:59 Creatine Kinase 39 CK-MB (CK-2) 0.73 Troponin I 0.051 0.112 08/05/19 16:43 Creatine Kinase CK-MB (CK-2) 1.07 Troponin I 0.062 Impressions: Abdomen MRI 08/05/19 00:00 IMPRESSION: 1. The common bile duct is dilated, measuring up to 1.1 cm in caliber. There is an elongated filling defect in the distal common bile duct within the pancreatic head concerning for one or more calculi, measuring 1.6 cm in length and 0.5 cm in caliber (series 6, image 51). 2. Cholelithiasis with mild distention of the gallbladder. Abdomen Ultrasound 08/05/19 07:56 IMPRESSION: Limited exam secondary to body habitus and bowel gas. 1. Cholelithiasis with dilated CBD measuring up to 11 mm. No definite intrahepatic ductal dilation. Findings suggestive of choledocholithiasis. Recommend correlation with LFTs for evidence of biliary obstruction. MRCP or ERCP could be considered for further confirmation. 2. Hepatic steatosis. Catheter Placement 08/08/19 00:00 IMPRESSION: IMAGE(S) OBTAINED DURING PROCEDURE. Fluoroscopy 08/08/19 00:00 IMPRESSION: IMAGE(S) OBTAINED DURING PROCEDURE. Chest/Abdomen CTA 08/09/19 00:00 IMPRESSION: 1. No CT evidence for pulmonary embolism. 2. Mild diffuse interstitial infiltrate, likely cardiogenic pulmonary edema. Cannot exclude an atypical interstitial pneumonia. 3. Cholelithiasis Chest X-Ray 08/10/19 00:00 IMPRESSION: NO ACUTE RADIOGRAPHIC FINDING IN THE CHEST. Assessment & Plan - Time Time Spent with patient: 15-24 minutes - Plan Summary Plan Summary: s/p lap [place] iwth enterotomy doing ok this am still with sl sob, no evidence of bleeding will cont only ice chips till return of bowel function cont [place] to monitor urine op labs reviwed, hct stable.
[2019-08-13] MEDS: LEVALBUTEROL HCL NEB 1.25 MG/3 ML AMPUL NEB PRN ×2 (08:56→15:38)
[2019-08-13] MEDS: TRAMADOL HCL 50 MG TABLET PO PRN (08:58)
[2019-08-13] MEDS: MAGNESIUM SULFATE/D5W 1 GM/100 ML RTUPB IV SCH ×2 (09:11→12:49)
[2019-08-13] MEDS ORDERED: GUAIFENESIN SYRP 200 MG/10 ML UDC PO PRN (09:33)
[2019-08-13] MEDS ORDERED: FUROSEMIDE INJ/PF 20 MG/2 ML SDV IV ONE (10:15)
[2019-08-13] MEDS ORDERED: METHYLPREDNISOLONE INJ 125 MG/2 ML SDV IV ONE (10:15)
[2019-08-13] MEDS: LATANOPROST 0.005% OPH SOLN 2.5 ML OU SCH (10:46)
[2019-08-13] MEDS: FAMOTIDINE INJ/PF 20 MG/2 ML SDV IV SCH ×2 (10:47→22:09)
[2019-08-13] MEDS: DILTIAZEM HCL 180 MG CAPSULE.CR PO SCH ×2 (10:47→22:09)
[2019-08-13] MEDS: POTASSIUM CHLORIDE 10 MEQ TABLET.ER PO SCH (10:47)
[2019-08-13] MEDS: DOCUSATE SODIUM 100 MG CAPSULE PO SCH (10:47)
[2019-08-13] MEDS: GUAIFENESIN 600 MG TABLET.SA PO SCH ×2 (10:47→22:09)
[2019-08-13] MEDS: SOTALOL HCL 80 MG TABLET PO SCH (10:47)
[2019-08-13] MEDS: FUROSEMIDE INJ/PF 20 MG/2 ML SDV IV SCH ×2 (10:48→22:09)
--- NOTE | 2019-08-13 12:37 | RADIOLOGY REPORT (SQ) ---
EXAM DESCRIPTION: CHEST SINGLE VIEW COMPLETED DATE/TIME: 08/13/2019 9:34 am REASON FOR STUDY: SOB and wheezing COMPARISON: AP view of the chest from 08/10/2019. EXAM PARAMETERS: NUMBER OF VIEWS: One view. TECHNIQUE: An AP view of the chest was obtained. RADIATION DOSE: NA LIMITATIONS: None. FINDINGS: LUNGS AND PLEURA: Low inspiratory lung volumes and new patchy opacities in the left base t hat could represent atelectasis. There is no sizable pleural effusion or pneumothorax. MEDIASTINUM AND HILAR STRUCTURES: No mediastinal or hilar contour abnormality. HEART AND VASCULAR STRUCTURES: Stable cardiac silhouette. BONES: No acute findings. HARDWARE: None in the chest. OTHER: No other finding. IMPRESSION: Low inspiratory lung volume and new patchy opacities in the left base that could represe nt atelectasis. Clinical correlation to exclude a pneumonia is recommended. TECHNICAL DOCUMENTATION: JOB ID: [id number] [employer]- All Rights Reserved Reading location - IP/workstation name: [email or web address]
[2019-08-13] MEDS ORDERED: VANCOMYCIN HCL 0 MG in DEXTROSE 5%-WATER 250 ML IV NR (13:30)
[2019-08-13 14:06] LABS: ARTERIAL BLOOD BASE EXCESS 2.1 mmol/L; ARTERIAL BLOOD H2CO3 1.35 mmol/L (1.05-1.35); ARTERIAL BLOOD HCO3 27.3 mmol/L (20-24); ARTERIAL BLOOD O2 SATURATION 94.6 % (94-98); ARTERIAL BLOOD PCO2 44.7 mmHg (35-45); ARTERIAL BLOOD PO2 72.8 mmHg (80-100); ARTERIAL BLOOD TOTAL CO2 28.6 mmol/L (21-25)
[2019-08-13 14:08] LABS: ARTERIAL BLOOD FIO2 3L
--- NOTE | 2019-08-13 15:06 | RADIOLOGY REPORT (SQ) ---
EXAM DESCRIPTION: CT CHEST WITHOUT COMPLETED DATE/TIME: 08/13/2019 2:35 pm REASON FOR STUDY: chest pain, dyspnea COMPARISON: CT of the chest with contrast from 08/09/2019. TECHNIQUE: CT scan performed of the chest without intravenous contrast. Images reviewed with lung, soft tissue and bone windows. Reconstructed coronal and sagittal MPR images reviewed. All images st ored on PACS. All CT scanners at this facility use dose modulation, iterative reconstruction, and/or weight based d osing when appropriate to reduce radiation dose to as low as reasonably achievable (ALARA). [facility]: Dose Right [facility]: CareDose [facility]: Dose Right [facility]: Teradose 4D [facility]: [employer] RADIATION DOSE: DLP 2614.45 mGy cm LIMITATIONS: No technical limitations. FINDINGS: LUNGS AND PLEURA: The trachea and main bronchi are patent. The lateral segment of the mid dle lobe is collapsed. The subpleural and band-like opacities/areas of consolidation in the lingula and lower lobes are unchanged. The 9 mm perifissural nodule in the superior segment of the right low er lobe (image 48 of series 6) is also unchanged. There is no pleural effusion or pneumothorax. HILAR AND MEDIASTINAL STRUCTURES: Stable mediastinal lymph nodes that measure up to 10 mm in short a xis diameter. Evaluation of the doug for adenopathy is limited due to the absence of intravenous con trast. There is no mediastinal mass. HEART AND VASCULAR STRUCTURES: No aneurysm of the thoracic aorta. The heart is enlarged and there is atherosclerotic calcification of the coronary arteries and mitral annulus. There is no pericardial effusion UPPER ABDOMEN: Hepatic steatosis. THYROID AND OTHER SOFT TISSUES: No masses or adenopathy. BONES: No acute findings. HARDWARE: None in the chest. OTHER: No other findings. IMPRESSION: Collapse of the lateral segment of the middle lobe - new from 08/09/2019. Other finding s including the subpleural and band-like opacities/areas of consolidation in the lingula and lower lo bes are unchanged. TECHNICAL DOCUMENTATION: JOB ID: [id number] Quality ID # [id number]: Final reports with documentation of one or more dose reduction techniques (e.g., Au tomated exposure control, adjustment of the mA and/or kV according to patient size, use of iterative reconstruction technique) 2010 [employer]- All Rights Reserved Reading location - IP/workstation name: [email or web address]
--- NOTE | 2019-08-13 15:28 | RADIOLOGY REPORT (SQ) ---
EXAM DESCRIPTION: CT ABD/PELVIS NO ORAL OR IV COMPLETED DATE/TIME: 08/13/2019 2:35 pm REASON FOR STUDY: Rt flank pain, abd distention. Post op. COMPARISON: None. TECHNIQUE: CT scan of the abdomen and pelvis performed without intravenous or oral contrast. Images reviewed with lung, soft tissue, and bone windows. Reconstructed coronal and sagittal MPR images revi ewed. All images stored on PACS. All CT scanners at this facility use dose modulation, iterative reconstruction, and/or weight based d osing when appropriate to reduce radiation dose to as low as reasonably achievable (ALARA). [facility]: Dose Right [facility]: CareDose [facility]: Dose Right [facility]: Teradose 4D [facility]: [employer] RADIATION DOSE: CT Rad equipment meets quality standard of care and radiation dose reduction techniq ues were employed. CTDIvol: 26.0 - 31.2 mGy. DLP: 2614 mGy-cm.mGy. LIMITATIONS: None. FINDINGS: LOWER CHEST: Refer to the separate report of the CT of the chest. NON-CONTRASTED LIVER, SPLEEN, ADRENALS: Evaluation is limited due to the absence of intravenous contr ast. The spleen is normal in size. The diffuse low attenuation of the hepatic parenchyma is consist ent with hepatic steatosis. There is no abnormality of the adrenal glands. PANCREAS: No abnormality of the pancreas. GALLBLADDER: The gallbladder is surgically absent. There is a drain in place that terminates in the gallbladder fossa. There is a cluster of lymph nodes in the region of the sherita hepatis that measure up to 28 x 7 mm. RIGHT KIDNEY AND URETER: Evaluation is limited due to the absence of intravenous contrast. There is an exophytic 5.4 x 4.6 cm water attenuation cystic lesion that projects from the lower pole of the ki dney consistent with a simple cyst. There are several caliceal calculi that measure up to 3 mm in di ameter. There is no hydronephrosis, hydroureter or ureterolithiasis. LEFT KIDNEY AND URETER: Evaluation is limited due to the absence of intravenous contrast. There are several caliceal calculi that measure up to 3 mm in diameter. There is no associated hydronephrosis, hydroureter or ureterolithiasis. The hypodense lesion in the lateral cortex of the kidney (image 35 of series 3) could represent a cyst. AORTA AND RETROPERITONEUM: No aneurysm of the abdominal aorta. No retroperitoneal adenopathy, hemorr nathan or mass BOWEL AND PERITONEAL CAVITY: Status post partial colectomy with creation of an anastomosis. There is colonic diverticulosis without other associated ancillary findings to indicate an acute diverticulit is. There is no bowel obstruction, bowel wall thickening or pericolonic/ perienteric inflammation. There are locule of free intraperitoneal air in the upper abdomen. There is no free intraperitoneal fluid. APPENDIX: Unable to identify the appendix PELVIS, BLADDER, AND ABDOMINAL WALL:There is a Navarrete catheter within the urinary bladder. The uterus is surgically absent. There is no abnormality of the adnexa that is apparent on CT. There are findings of prior ventral hernia repair. There is a subcutaneous surgical drain in place a long the ventral surgical incision. BONES: No acute findings. OTHER: No other finding. IMPRESSION: 1. Postoperative findings as detailed above. 2. Bilateral caliceal calculi that measure up to 3 mm. There is no hydronephrosis. 3. Colonic diverticulosis without other associated ancillary findings to indicate an acute diverticu litis. COMMENT: Quality ID # [id number]: Final reports with documentation of one or more dose reduction techniques (e.g., Automated exposure control, adjustment of the mA and/or kV according to patient size, use of iterative reconstruction technique) TECHNICAL DOCUMENTATION: JOB ID: [id number] [employer]- All Rights Reserved Reading location - IP/workstation name: [email or web address]
[2019-08-13] MEDS ORDERED: VANCOMYCIN HCL 1,000 MG in DEXTROSE 5%-WATER 250 ML IV SCH (15:30)
[2019-08-13] MEDS ORDERED: LEVOFLOXACIN 750 MG/D5W RTU 750 MG/150 ML RTUPB IV SCH (16:00)
--- NOTE | 2019-08-13 16:41 | PDOC PROGRESS REPORT ---
Subjective Progress Note for:: 08/13/19 Subjective:: The patient is a 69-year-old female with a past medical history of atrial fibrillation, hypertension, and morbid obesity who was admitted 08/05/2019 for Acute cholecystitis. She was seen on morning rounds and again this afternoon with Dr. Gleason. Patient was found resting in bed. She is lying in bed with head of bed elevated approximately 30%. She is noted to be tachypneic, abdominal breathing, with audible wheezing (upper airway). She does confirm dyspnea and productive cough today. She also reports right flank pain, worsens with deep inspiration and pal pation. She denies fever, chills, chest pain, palpitations, orthopnea, nausea, vomiting, and diarrhea. She has no other questions or concerns at this time. No concerns per nursing. Reason For Visit: ABDOMINAL PAIN,CHRONIC AFIB,CHOLEDOCHOLITHIASIS Physical Exam Vital Signs: Temp Pulse Resp BP Pulse Ox 98.2 F 95 20 134/82 H 95 08/13/19 12:00 08/13/19 15:38 08/13/19 15:38 08/13/19 12:00 08/13/19 15:38 Pulse Oximeter Nocturnal Start: 08/11/19 17:32 Freq: RTQ4 Status: Complete Protocol: Document 08/12/19 04:34 DBE (Rec: 08/12/19 04:34 DBE [id number]) Nocturnal Pulse Oximetry Equipment Usage Equipment in Use Nocturnal Spo2 Charge Charge Now Oxygen Delivery Method (includes room Room Air air) O2 Sat by Pulse Oximetry (92-100) 92 Continuous SpO2 Machine # [id number] Intake & Output 08/12/19 08/13/19 08/14/19 06:59 06:59 06:59 Intake Total 1910 2120 200 Output Total 1200 210 Balance 710 1910 200 Weight 129.5 kg 128.2 kg 128.2 kg General appearance: PRESENT: cooperative, mild distress, morbidly obese, well- developed, well-nourished Head exam: PRESENT: atraumatic, normocephalic Eye exam: PRESENT: conjunctiva pink, EOMI, PERRLA. ABSENT: scleral icterus Ear exam: PRESENT: normal external ear exam Mouth exam: PRESENT: moist, tongue midline Neck exam: ABSENT: carotid bruit, JVD, lymphadenopathy, thyromegaly Respiratory exam: PRESENT: accessory muscle use, symmetrical, tachypnea, wheezes, other - Supplemental oxygen via nasal cannula. ABSENT: rales, rhonchi Cardiovascular exam: PRESENT: RRR, +S1, +S2. ABSENT: diastolic murmur, rubs, systolic murmur Pulses: PRESENT: normal dorsalis pedis pul Vascular exam: PRESENT: normal capillary refill GI/Abdominal exam: PRESENT: diminished bowel sounds, distended, hypoactive bowel sounds, soft, tenderness. ABSENT: guarding, mass, organolmegaly, rebound Rectal exam: PRESENT: deferred Gentrourinary exam: PRESENT: indwelling catheter Extremities exam: PRESENT: full ROM. ABSENT: calf tenderness, clubbing, pedal edema Neurological exam: PRESENT: alert, awake, oriented to person, oriented to place, oriented to time, oriented to situation, CN II-XII grossly intact. ABSENT: motor sensory deficit Psychiatric exam: PRESENT: appropriate affect, normal mood. ABSENT: homicidal ideation, suicidal ideation Skin exam: PRESENT: dry, intact, warm. ABSENT: cyanosis, rash Results Laboratory Results: 08/13/19 04:00 08/13/19 04:00 08/12/19 08/12/19 08/12/19 17:14 19:13 19:13 WBC 12.9 H D RBC 4.60 Hgb 13.2 Hct 40.7 MCV 89 MCH 28.6 MCHC 32.3 RDW 16.9 H Plt Count 269 Carbonic Acid HCO3/H2CO3 Ratio ABG pH ABG pCO2 ABG pO2 ABG HCO3 ABG O2 Saturation ABG Base Excess FiO2 Sodium 143.3 Potassium 3.9 Chloride 103 Carbon Dioxide 29 Anion Gap 11 BUN 6 L Creatinine 0.57 Est GFR ( Amer) > 60 Glucose 160 H Calcium 9.0 Magnesium 1.4 L Urine Color Urine Appearance Urine pH Ur Specific [place] Urine Protein Urine Glucose (UA) Urine Ketones Urine Blood Urine Nitrite Ur Leukocyte Esterase Urine WBC (Auto) Urine RBC (Auto) 08/13/19 08/13/19 08/13/19 04:00 04:00 04:00 WBC 13.3 H RBC 4.54 Hgb 12.8 Hct 39.9 MCV 88 MCH 28.2 MCHC 32.1 RDW 16.4 H Plt Count 266 Carbonic Acid HCO3/H2CO3 Ratio ABG pH ABG pCO2 ABG pO2 ABG HCO3 ABG O2 Saturation ABG Base Excess FiO2 Sodium 144.3 Potassium 3.8 Chloride 107 Carbon Dioxide 30 Anion Gap 7 BUN 7 Creatinine 0.50 L Est GFR ( Amer) > 60 Glucose 131 H Calcium 8.9 Magnesium 1.5 L Urine Color Urine Appearance Urine pH Ur Specific [place] Urine Protein Urine Glucose (UA) Urine Ketones Urine Blood Urine Nitrite Ur Leukocyte Esterase Urine WBC (Auto) Urine RBC (Auto) 08/13/19 08/13/19 06:30 13:52 WBC RBC Hgb Hct MCV MCH MCHC RDW Plt Count Carbonic Acid 1.35 HCO3/H2CO3 Ratio 20:1 ABG pH 7.40 ABG pCO2 44.7 ABG pO2 72.8 L ABG HCO3 27.3 H ABG O2 Saturation 94.6 ABG Base Excess 2.1 FiO2 3L Sodium Potassium Chloride Carbon Dioxide Anion Gap BUN Creatinine Est GFR ( Amer) Glucose Calcium Magnesium Urine Color YELLOW Urine Appearance SLIGHTLY-CLOUDY Urine pH 6.0 Ur Specific [place] 1.027 Urine Protein 100 H Urine Glucose (UA) NEGATIVE Urine Ketones NEGATIVE Urine Blood SMALL H Urine Nitrite NEGATIVE Ur Leukocyte Esterase NEGATIVE Urine WBC (Auto) 4 Urine RBC (Auto) 23 08/05/19 08/05/19 08/05/19 05:10 05:10 10:59 Creatine Kinase 39 CK-MB (CK-2) 0.73 Troponin I 0.051 0.112 NT-Pro-B Natriuret Pep 08/05/19 08/13/19 16:43 04:00 Creatine Kinase CK-MB (CK-2) 1.07 Troponin I 0.062 NT-Pro-B Natriuret Pep 1320 H Impressions: Abdomen MRI 08/05/19 00:00 IMPRESSION: 1. The common bile duct is dilated, measuring up to 1.1 cm in caliber. There is an elongated filling defect in the distal common bile duct within the pancreatic head concerning for one or more calculi, measuring 1.6 cm in length and 0.5 cm in caliber (series 6, image 51). 2. Cholelithiasis with mild distention of the gallbladder. Abdomen Ultrasound 08/05/19 07:56 IMPRESSION: Limited exam secondary to body habitus and bowel gas. 1. Cholelithiasis with dilated CBD measuring up to 11 mm. No definite intrahepatic ductal dilation. Findings suggestive of choledocholithiasis. Recommend correlation with LFTs for evidence of biliary obstruction. MRCP or E PIPE FITTER MARINE could be considered for further confirmation. 2. Hepatic steatosis. Catheter Placement 08/08/19 00:00 IMPRESSION: IMAGE(S) OBTAINED DURING PROCEDURE. Fluoroscopy 08/08/19 00:00 IMPRESSION: IMAGE(S) OBTAINED DURING PROCEDURE. Chest/Abdomen CTA 08/09/19 00:00 IMPRESSION: 1. No CT evidence for pulmonary embolism. 2. Mild diffuse interstitial infiltrate, likely cardiogenic pulmonary edema. Cannot exclude an atypical interstitial pneumonia. 3. Cholelithiasis Abdomen/Pelvis CT 08/13/19 00:00 IMPRESSION: 1. Postoperative findings as detailed above. 2. Bilateral caliceal calculi that measure up to 3 mm. There is no hydronephrosis. 3. Colonic diverticulosis without other associated ancillary findings to indicate an acute diverticulitis. Chest CT 08/13/19 00:00 IMPRESSION: Collapse of the lateral segment of the middle lobe - new from 08/09/2019. Other findings including the subpleural and band-like opacities/areas of consolidation in the lingula and lower lobes are unchanged. Chest X-Ray 08/13/19 00:00 IMPRESSION: Low inspiratory lung volume and new patchy opacities in the left base that could represent atelectasis. Clinical correlation to exclude a pneumonia is recommended. Assessment and Plan - Diagnosis (1) Calculus of common bile duct with acute cholecystitis Is this a current diagnosis for this admission?: Yes Plan: s/p ERCP by Dr. Jacques. s/p cholecystectomy; POD #1 Continue IV Zosyn. Diet per surgery. Analgesics and antiemetics as needed. (2) Acute respiratory failure with hypoxia Is this a current diagnosis for this admission?: Yes Plan: Recurrent. Multifactorial seconary to RML lateral lung collapse and possible laryngeal edema related to intubation. CTA (08/09/19) revealed mild diffuse interstitial infiltrates, likely cardiogenic. CT Chest (08/13/19) Collapse of the lateral segment of the middle lobe (new) and subpleural and band-like opacities/consolidation to the lingula and lower lobes (unchanged) ABG reveals hypoxia IV fluids have been placed on hold with the exception IV Zosyn. Schedule and as needed nebulizer treatments. Incentive spirometer to bedside. Out of bed for meals, ambulate, wean oxygen. Discussed w/ Dr. Do's who did see the patient; recommends trial of CPAP or HFNC if not tolerated. (3) Atrial flutter with rapid ventricular response Is this a current diagnosis for this admission?: Yes Plan: Now rate controlled. Xarelto has been placed on hold secondary to ERCP and planned laparoscopic cholecystectomy. Lap madison has been delayed secondary to acute respiratory respiratory distress (pulmonary edema). Therefore, have started on heparin drip. Discussed w/ Surgery; Heparin to be placed on hold 2 hours prior to OR time, resume 6 hrs post-op. Transition back to Xarelto at d/c. Continue diltiazem 180 mg BID. We will continue home dose sotalol. Continue cardiac telemetry. Cardiac diet. (4) Abdominal pain Is this a current diagnosis for this admission?: Yes Plan: Improved. Secondary to #1. Management as above. (5) Fever Qualifiers: Fever type: unspecified Qualified Code(s): R50.9 - Fever, unspecified Is this a current diagnosis for this admission?: Yes Plan: Resolved; patient has been afebrile >48 hrs. Secondary to #1. Management as above. (6) Morbid obesity with BMI of 40.0-44.9, adult Is this a current diagnosis for this admission?: Yes Plan: BMI 43.4 Dietary and lifestyle modifications encouraged. Cardiac diet. survey associate is consulted. (7) UTI (urinary tract infection) Qualifiers: Urinary tract infection type: acute cystitis Hematuria presence: with hematuria Qualified Code(s): N30.01 - Acute cystitis with hematuria Is this a current diagnosis for this admission?: Yes Plan: Urinalysis positive for UTI. Urine culture demonstrates 2 strains of pansensitive E. coli. Blood cultures (08/05/2019) positive for E. coli in 1 set. Follow up blood cultures (08/11/19) are negative at 24 hrs Continue IV Zosyn; day #8. (8) Bacteremia Is this a current diagnosis for this admission?: Yes Plan: Blood cultures (08/05/2019) positive for E. coli in 1 set. Repeat cultures (08/11/19) are negative to date. Continue IV Zosyn; day #8. (9) Dyspnea Qualifiers: Dyspnea type: acute respiratory distress Qualified Code(s): R06.03 - Acute respiratory distress Is this a current diagnosis for this admission?: Yes Plan: Recurrent. Management as above. - Time Time Spent with patient: 35 or more minutes Medications reviewed and adjusted accordingly: Yes Anticipated discharge: Home with Homehealth
[2019-08-13] MEDS: ACETYLCYSTEINE 20% SOLN 800 MG/4 ML VIAL.NEB NEB SCH (19:42)
[2019-08-14] MEDS: PIPERACILLIN SODIUM/TAZOBACTAM 3.375 GM in NORMAL SALINE 100 ML IV SCH ×4 (00:10→17:22)
[2019-08-14] MEDS: MORPHINE SULFATE 10 MG/ML INJ IV PRN ×3 (00:10→20:19)
[2019-08-14] MEDS: SOTALOL HCL 80 MG TABLET PO SCH ×3 (00:11→21:44)
[2019-08-14] MEDS: LATANOPROST 0.005% OPH SOLN 2.5 ML OU SCH ×3 (02:20→21:44)
[2019-08-14] MEDS: IPRATROPIUM/ALBUTEROL 0.5-2.5 MG/3 ML AMPUL NEB SCH ×4 (02:39→20:06)
[2019-08-14 05:50] LABS: HEMATOCRIT 36.9 % (36.0-47.0); MEAN CORPUSCULAR HEMOGLOBIN 28.8 pg (27.0-33.4); MEAN CORPUSCULAR HGB CONC 32.5 g/dL (32.0-36.0); MEAN CORPUSCULAR VOLUME 89 fl (80-97); PLATELET COUNT 257 10^3/uL (150-450); RED BLOOD COUNT 4.17 10^6/uL (3.72-5.28); RED CELL DISTRIBUTION WIDTH 16.5 % (11.5-14.0); WHITE BLOOD COUNT 15.4 10^3/uL (4.0-10.5)
[2019-08-14 06:11] LABS: ANION GAP 9 (5-19); BLOOD UREA NITROGEN 14 mg/dL (7-20); CALCIUM 9.1 mg/dL (8.4-10.2); CARBON DIOXIDE 32 mmol/L (22-30); CHLORIDE 101 mmol/L (98-107); GLUCOSE 119 mg/dL (75-110); POTASSIUM 4.2 mmol/L (3.6-5.0)
[2019-08-14 06:46] LABS: ABSOLUTE LYMPHOCYTES# (MANUAL) 0.9 10^3/uL (0.5-4.7); BASOPHILS % (MANUAL) 0 % (0-2); EOSINOPHILS % (MANUAL) 0 % (0-6); LYMPHOCYTES % (MANUAL) 6 % (13-45); MONOCYTES % (MANUAL) 0 % (3-13); SEGMENTED NEUTROPHILS % (MAN) 94 % (42-78); TOTAL CELLS COUNTED 100
[2019-08-14 06:48] LABS: POIKILOCYTOSIS SLIGHT; TOXIC GRANULATION SLIGHT
[2019-08-14 06:49] LABS: OVALOCYTES SLIGHT; PLATELET COMMENT ADEQUATE; TOXIC VACUOLATION PRESENT
[2019-08-14] MEDS: ACETYLCYSTEINE 20% SOLN 800 MG/4 ML VIAL.NEB NEB SCH ×2 (07:42→20:06)
[2019-08-14] MEDS: GUAIFENESIN 600 MG TABLET.SA PO SCH ×2 (09:33→21:43)
[2019-08-14] MEDS: POTASSIUM CHLORIDE 10 MEQ TABLET.ER PO SCH (09:33)
[2019-08-14] MEDS: FAMOTIDINE INJ/PF 20 MG/2 ML SDV IV SCH ×2 (09:33→21:43)
[2019-08-14] MEDS: DOCUSATE SODIUM 100 MG CAPSULE PO SCH (09:33)
[2019-08-14] MEDS: DILTIAZEM HCL 180 MG CAPSULE.CR PO SCH ×2 (09:33→21:43)
[2019-08-14] MEDS ORDERED: METHYLPREDNISOLONE INJ 40 MG/1 ML SDV IV SCH (10:15)
--- NOTE | 2019-08-14 10:24 | PDOC PROGRESS REPORT ---
Subjective Progress Note for:: 08/14/19 Subjective:: The patient is a 69-year-old female with a past medical history of atrial fibrillation, hypertension, and morbid obesity who was admitted 08/05/2019 for Acute cholecystitis. She was seen on morning rounds. Patient was found resting in bed, comfortably, on supplemental oxygen at 5 lpm. She is lying in bed with head of bed elevated approximately 30%. She is noted to have increased work of breathing, but no longer tachypneic and speaking full sentences. She does confirm that she is feeling much better today. However, she does continue to have right posterior chest wall/flank pain with palpation, movement, deep inspiration and cough. She also reports a nonproductive cough. Otherwise, she denies fever, chills, chest pain, palpitations, orthopnea, nausea, vomiting, diarrhea. She asks to advance her diet, but does admit that she has not passed gas or had a bowel movement. She is encouraged to begin ambulating. No concerns per nursing. Reason For Visit: ABDOMINAL PAIN,CHRONIC AFIB,CHOLEDOCHOLITHIASIS Physical Exam Vital Signs: Temp Pulse Resp BP Pulse Ox 97.5 F 61 20 108/54 L 90 L 08/14/19 07:43 08/14/19 07:46 08/14/19 07:46 08/14/19 07:43 08/14/19 07:46 Pulse Oximeter Nocturnal Start: 08/11/19 17:32 Freq: RTQ4 Status: Complete Protocol: Document 08/12/19 04:34 DBE (Rec: 08/12/19 04:34 DBE [id number]) Nocturnal Pulse Oximetry Equipment Usage Equipment in Use Nocturnal Spo2 Charge Charge Now Oxygen Delivery Method (includes room Room Air air) O2 Sat by Pulse Oximetry (92-100) 92 Continuous SpO2 Machine # [id number] Intake & Output 08/13/19 08/14/19 08/15/19 06:59 06:59 06:59 Intake Total 2120 500 Output Total 210 1075 Balance 1910 -575 Weight 128.2 kg 129.1 kg General appearance: PRESENT: no acute distress, cooperative, morbidly obese, w ell-developed, well-nourished Head exam: PRESENT: atraumatic, normocephalic Eye exam: PRESENT: conjunctiva pink, EOMI, PERRLA. ABSENT: scleral icterus Ear exam: PRESENT: normal external ear exam Mouth exam: PRESENT: moist, tongue midline Neck exam: ABSENT: carotid bruit, JVD, lymphadenopathy, thyromegaly Respiratory exam: PRESENT: clear to auscultation aroldo, decreased breath sounds - bibasilar, symmetrical, other - supplemental oxygen via NC. ABSENT: rales, rhonchi, wheezes Cardiovascular exam: PRESENT: RRR, +S1, +S2. ABSENT: diastolic murmur, rubs, systolic murmur Pulses: PRESENT: normal dorsalis pedis pul Vascular exam: PRESENT: normal capillary refill GI/Abdominal exam: PRESENT: diminished bowel sounds, distended, hypoactive bowel sounds, soft, tenderness, other - taylor drains. ABSENT: guarding, mass, organolmegaly, rebound Rectal exam: PRESENT: deferred Extremities exam: PRESENT: full ROM. ABSENT: calf tenderness, clubbing, pedal edema Neurological exam: PRESENT: alert, awake, oriented to person, oriented to place, oriented to time, oriented to situation, CN II-XII grossly intact. ABSENT: motor sensory deficit Psychiatric exam: PRESENT: appropriate affect, normal mood. ABSENT: homicidal ideation, suicidal ideation Skin exam: PRESENT: dry, intact, warm. ABSENT: cyanosis, rash Results Laboratory Results: 08/14/19 04:35 08/14/19 04:35 08/13/19 08/14/19 08/14/19 13:52 04:35 04:35 WBC 15.4 H RBC 4.17 Hgb 12.0 Hct 36.9 MCV 89 MCH 28.8 MCHC 32.5 RDW 16.5 H Plt Count 257 Seg Neutrophils % Not Reportable Carbonic Acid 1.35 HCO3/H2CO3 Ratio 20:1 ABG pH 7.40 ABG pCO2 44.7 ABG pO2 72.8 L ABG HCO3 27.3 H ABG O2 Saturation 94.6 ABG Base Excess 2.1 FiO2 3L Sodium 141.9 Potassium 4.2 Chloride 101 Carbon Dioxide 32 H Anion Gap 9 BUN 14 Creatinine 0.57 Est GFR ( Amer) > 60 Glucose 119 H Calcium 9.1 08/05/19 08/05/19 08/05/19 05:10 05:10 10:59 Creatine Kinase 39 CK-MB (CK-2) 0.73 Troponin I 0.051 0.112 NT-Pro-B Natriuret Pep 08/05/19 08/13/19 16:43 04:00 Creatine Kinase CK-MB (CK-2) 1.07 Troponin I 0.062 NT-Pro-B Natriuret Pep 1320 H Impressions: Abdomen MRI 08/05/19 00:00 IMPRESSION: 1. The common bile duct is dilated, measuring up to 1.1 cm in caliber. There is an elongated filling defect in the distal common bile duct within the pancreatic head concerning for one or more calculi, measuring 1.6 cm in length and 0.5 cm in caliber (series 6, image 51). 2. Cholelithiasis with mild distention of the gallbladder. Abdomen Ultrasound 08/05/19 07:56 IMPRESSION: Limited exam secondary to body habitus and bowel gas. 1. Cholelithiasis with dilated CBD measuring up to 11 mm. No definite intrahepatic ductal dilation. Findings suggestive of choledocholithiasis. Recommend correlation with LFTs for evidence of biliary obstruction. MRCP or ERCP could be considered for further confirmation. 2. Hepatic steatosis. Catheter Placement 08/08/19 00:00 IMPRESSION: IMAGE(S) OBTAINED DURING PROCEDURE. Fluoroscopy 08/08/19 00:00 IMPRESSION: IMAGE(S) OBTAINED DURING PROCEDURE. Chest/Abdomen CTA 08/09/19 00:00 IMPRESSION: 1. No CT evidence for pulmonary embolism. 2. Mild diffuse interstitial infiltrate, likely cardiogenic pulmonary edema. Cannot exclude an atypical interstitial pneumonia. 3. Cholelithiasis Abdomen/Pelvis CT 08/13/19 00:00 IMPRESSION: 1. Postoperative findings as detailed above. 2. Bilateral caliceal calculi that measure up to 3 mm. There is no hydronephrosis. 3. Colonic diverticulosis without other associated ancillary findings to indicate an acute diverticulitis. Chest CT 08/13/19 00:00 IMPRESSION: Collapse of the lateral segment of the middle lobe - new from 08/09/2019. Other findings including the subpleural and band-like opacities/areas of consolidation in the lingula and lower lobes are unchanged. Chest X-Ray 08/13/19 00:00 IMPRESSION: Low inspiratory lung volume and new patchy opacities in the left base that could represent atelectasis. Clinical correlation to exclude a pneumonia is recommended. Assessment and Plan - Diagnosis (1) Calculus of common bile duct with acute cholecystitis Is this a current diagnosis for this admission?: Yes Plan: s/p ERCP by Dr. Jacques. s/p cholecystectomy; POD #2 Continue IV Zosyn; d/c tomorrow if remains afebrile (WBCs elevated r/t steroids) Diet per surgery. Analgesics and antiemetics as needed. (2) Acute respiratory failure with hypoxia Is this a current diagnosis for this admission?: Yes Plan: Improved. Remains on supplemental oxygen; decreased distress today. Did not tolerate CPAP. Multifactorial seconary to RML lateral lung collapse and possible laryngeal edema related to intubation. CTA (08/09/19) revealed mild diffuse interstitial infiltrates, likely cardiogenic. CT Chest (08/13/19) Collapse of the lateral segment of the middle lobe (new) and subpleural and band-like opacities/consolidation to the lingula and lower lobes (unchanged) ABG reveals hypoxia IV fluids have been placed on hold with the exception IV Zosyn. Schedule and as needed nebulizer treatments. Solu-medrol decreased today. Incentive spirometer to bedside. Out of bed for meals, ambulate, wean oxygen. Discussed w/ Dr. Do's who did see the patient; Pt did not tolerate CPAP. Consider HFNC. (3) Abdominal pain Is this a current diagnosis for this admission?: Yes Plan: Improved. Secondary to #1. Management as above. (4) Fever Qualifiers: Fever type: unspecified Qualified Code(s): R50.9 - Fever, unspecified Is this a current diagnosis for this admission?: Yes Plan: Resolved; patient has been afebrile >48 hrs. Secondary to #1. Management as above. (5) Morbid obesity with BMI of 40.0-44.9, adult Is this a current diagnosis for this admission?: Yes Plan: BMI 43.4 Dietary and lifestyle modifications encouraged. Cardiac diet. hydraulic technician is consulted. (6) UTI (urinary tract infection) Qualifiers: Urinary tract infection type: acute cystitis Hematuria presence: with hematuria Qualified Code(s): N30.01 - Acute cystitis with hematuria Is this a current diagnosis for this admission?: Yes Plan: Urinalysis positive for UTI. Urine culture demonstrates 2 strains of pansensitive E. coli. Blood cultures (08/05/2019) positive for E. coli in 1 set. Follow up blood cultures (08/11/19) are negative at 72 hrs Continue IV Zosyn; day #9. Will d/c tomorrow. (7) Bacteremia Is this a current diagnosis for this admission?: Yes Plan: Blood cultures (08/05/2019) positive for E. coli in 1 set. Repeat cultures (08/11/19) are negative to date. Continue IV Zosyn; day #9. (8) Dyspnea Qualifiers: Dyspnea type: acute respiratory distress Qualified Code(s): R06.03 - Acute respiratory distress Is this a current diagnosis for this admission?: Yes Plan: Recurrent. Management as above. (9) Atrial flutter with rapid ventricular response Is this a current diagnosis for this admission?: Yes Plan: Now rate controlled. Xarelto has been placed on hold secondary to ERCP and planned laparoscopic cholecystectomy. Lap madison has been delayed secondary to acute respiratory respiratory distress (pulmonary edema). Therefore, have started on heparin drip. Discussed w/ Surgery; Heparin to be placed on hold 2 hours prior to OR time. Will discuss w/ Surgery resuming heparin gtt. Transition back to Xarelto at d/c. Continue diltiazem 180 mg BID. We will continue home dose sotalol. Continue cardiac telemetry. Cardiac diet. - Time Time Spent with patient: 25-34 minutes Medications reviewed and adjusted accordingly: Yes Anticipated discharge: Home with Homehealth
[2019-08-14] MEDS: METHYLPREDNISOLONE INJ 40 MG/1 ML SDV IV SCH ×2 (12:59→21:42)
[2019-08-14 15:05] LABS: VANCOMYCIN,TROUGH < 5.0 ug/mL (5.0-20.0)
[2019-08-14] MEDS: TRAMADOL HCL 50 MG TABLET PO PRN (20:11)
--- NOTE | 2019-08-14 20:25 | PDOC PROGRESS REPORT ---
Subjective Progress Note for:: 08/14/19 Reason For Visit: ABDOMINAL PAIN,CHRONIC AFIB,CHOLEDOCHOLITHIASIS Physical Exam Vital Signs: Temp Pulse Resp BP Pulse Ox 98.3 F 64 19 121/66 94 08/14/19 14:57 08/14/19 14:57 08/14/19 14:57 08/14/19 14:57 08/14/19 14:57 Pulse Oximeter Nocturnal Start: 08/11/19 17:32 Freq: RTQ4 Status: Complete Protocol: Document 08/12/19 04:34 DBE (Rec: 08/12/19 04:34 DBE [id number]) Nocturnal Pulse Oximetry Equipment Usage Equipment in Use Nocturnal Spo2 Charge Charge Now Oxygen Delivery Method (includes room Room Air air) O2 Sat by Pulse Oximetry (92-100) 92 Continuous SpO2 Machine # [id number] Intake & Output 08/13/19 08/14/19 08/15/19 06:59 06:59 06:59 Intake Total 2120 600 100 Output Total 210 1075 Balance 1910 -475 100 Weight 128.2 kg 129.1 kg Results Laboratory Results: 08/14/19 04:35 08/14/19 13:37 08/14/19 08/14/19 08/14/19 04:35 04:35 13:37 WBC 15.4 H RBC 4.17 Hgb 12.0 Hct 36.9 MCV 89 MCH 28.8 MCHC 32.5 RDW 16.5 H Plt Count 257 Seg Neutrophils % Not Reportable Sodium 141.9 Potassium 4.2 Chloride 101 Carbon Dioxide 32 H Anion Gap 9 BUN 14 Creatinine 0.57 0.60 Est GFR ( Amer) > 60 > 60 Glucose 119 H Calcium 9.1 08/05/19 08/05/19 08/05/19 05:10 05:10 10:59 Creatine Kinase 39 CK-MB (CK-2) 0.73 Troponin I 0.051 0.112 NT-Pro-B Natriuret Pep 08/05/19 08/13/19 16:43 04:00 Creatine Kinase CK-MB (CK-2) 1.07 Troponin I 0.062 NT-Pro-B Natriuret Pep 1320 H Impressions: Abdomen MRI 08/05/19 00:00 IMPRESSION: 1. The common bile duct is dilated, measuring up to 1.1 cm in caliber. There is an elongated filling defect in the distal common bile duct within the pancreatic head concerning for one or more calculi, measuring 1.6 cm in length and 0.5 cm in caliber (series 6, image 51). 2. Cholelithiasis with mild distention of the gallbladder. Abdomen Ultrasound 08/05/19 07:56 IMPRESSION: Limited exam secondary to body habitus and bowel gas. 1. Cholelithiasis with dilated CBD measuring up to 11 mm. No definite intrahepatic ductal dilation. Findings suggestive of choledocholithiasis. Recommend correlation with LFTs for evidence of biliary obstruction. MRCP or ERCP could be considered for further confirmation. 2. Hepatic steatosis. Catheter Placement 08/08/19 00:00 IMPRESSION: IMAGE(S) OBTAINED DURING PROCEDURE. Fluoroscopy 08/08/19 00:00 IMPRESSION: IMAGE(S) OBTAINED DURING PROCEDURE. Chest/Abdomen CTA 08/09/19 00:00 IMPRESSION: 1. No CT evidence for pulmonary embolism. 2. Mild diffuse interstitial infiltrate, likely cardiogenic pulmonary edema. Cannot exclude an atypical interstitial pneumonia. 3. Cholelithiasis Abdomen/Pelvis CT 08/13/19 00:00 IMPRESSION: 1. Postoperative findings as detailed above. 2. Bilateral caliceal calculi that measure up to 3 mm. There is no hydronephrosis. 3. Colonic diverticulosis without other associated ancillary findings to indicate an acute diverticulitis. Chest CT 08/13/19 00:00 IMPRESSION: Collapse of the lateral segment of the middle lobe - new from 08/09/2019. Other findings including the subpleural and band-like opacities/areas of consolidation in the lingula and lower lobes are unchanged. Chest X-Ray 08/13/19 00:00 IMPRESSION: Low inspiratory lung volume and new patchy opacities in the left base that could represent atelectasis. Clinical correlation to exclude a pneumonia is recommended. Assessment & Plan - Diagnosis (1) Choledocholithiasis Is this a current diagnosis for this admission?: Yes - Time Time Spent with patient: Less than 15 minutes - Plan Summary Plan Summary: This is a 69-year-old female status post laparoscopic cholecystectomy with open small bowel repair due to an intraoperative enterotomy. The patient is doing reasonably well today. She still complains of shortness of breath. She is requesting to get out of bed. I will order physical therapy consult with ambulation orders. Her STUART drains are minimally productive. She does have a slight white count, but she is on steroids for her lungs. She is afebrile, without signs of tachycardia or decompensation. She is passing flatus today. Advance diet to full liquids. Will follow.
[2019-08-15] MEDS: SOTALOL HCL 80 MG TABLET PO SCH ×3 (00:06→21:13)
[2019-08-15] MEDS: PIPERACILLIN SODIUM/TAZOBACTAM 3.375 GM in NORMAL SALINE 100 ML IV SCH ×2 (00:12→06:02)
[2019-08-15] MEDS: IPRATROPIUM/ALBUTEROL 0.5-2.5 MG/3 ML AMPUL NEB SCH ×4 (02:22→20:55)
[2019-08-15] MEDS: MORPHINE SULFATE 10 MG/ML INJ IV PRN ×4 (02:46→21:14)
[2019-08-15 05:10] LABS: HEMATOCRIT 36.8 % (36.0-47.0); MEAN CORPUSCULAR HEMOGLOBIN 28.7 pg (27.0-33.4); MEAN CORPUSCULAR HGB CONC 32.6 g/dL (32.0-36.0); MEAN CORPUSCULAR VOLUME 88 fl (80-97); PLATELET COUNT 267 10^3/uL (150-450); RED BLOOD COUNT 4.18 10^6/uL (3.72-5.28); RED CELL DISTRIBUTION WIDTH 16.7 % (11.5-14.0); WHITE BLOOD COUNT 13.6 10^3/uL (4.0-10.5)
[2019-08-15] MEDS: METHYLPREDNISOLONE INJ 40 MG/1 ML SDV IV SCH (06:01)
[2019-08-15] MEDS: ACETYLCYSTEINE 20% SOLN 800 MG/4 ML VIAL.NEB NEB SCH ×2 (09:19→20:55)
[2019-08-15] MEDS: POTASSIUM CHLORIDE 10 MEQ TABLET.ER PO SCH (09:43)
[2019-08-15] MEDS: FAMOTIDINE INJ/PF 20 MG/2 ML SDV IV SCH ×2 (09:43→21:15)
[2019-08-15] MEDS: DOCUSATE SODIUM 100 MG CAPSULE PO SCH (09:44)
[2019-08-15] MEDS: GUAIFENESIN 600 MG TABLET.SA PO SCH ×2 (09:44→21:14)
[2019-08-15] MEDS: LATANOPROST 0.005% OPH SOLN 2.5 ML OU SCH ×2 (09:46→21:16)
[2019-08-15] MEDS: DILTIAZEM HCL 180 MG CAPSULE.CR PO SCH ×2 (09:46→21:16)
--- NOTE | 2019-08-15 11:03 | PDOC PROGRESS REPORT ---
Subjective Progress Note for:: 08/15/19 Subjective:: The patient is a 69-year-old female with a past medical history of atrial fibrillation, hypertension, and morbid obesity who was admitted 08/05/2019 for Acute cholecystitis. She was seen on morning rounds. Patient was found resting in bed on supplemental oxygen at 4 lpm. She appears comfortable today, even and unlabored breathing, speaking full sentences; no accessory muscle use w/ clear lung sounds. Patient reports that she is feeling well; decreased pain and tolerating p.o. intake. She reports continued passing gas, has not yet had a bowel movement. Looking forward to ambulating in the hallways today. Decreased coughing. She further denies fever, chills, chest pain, palpitations, orthopnea, nausea, vomiting, diarrhea. She has no other questions or concerns. No concerns per nursing. Reason For Visit: ABDOMINAL PAIN,CHRONIC AFIB,CHOLEDOCHOLITHIASIS Physical Exam Vital Signs: Temp Pulse Resp BP Pulse Ox 97.5 F 69 20 115/64 90 L 08/15/19 08:00 08/15/19 09:11 08/15/19 09:11 08/15/19 08:00 08/15/19 09:11 Pulse Oximeter Nocturnal Start: 08/11/19 17:32 Freq: RTQ4 Status: Complete Protocol: Document 08/12/19 04:34 DBE (Rec: 08/12/19 04:34 DBE [id number]) Nocturnal Pulse Oximetry Equipment Usage Equipment in Use Nocturnal Spo2 Charge Charge Now Oxygen Delivery Method (includes room Room Air air) O2 Sat by Pulse Oximetry (92-100) 92 Continuous SpO2 Machine # [id number] Intake & Output 08/14/19 08/15/19 08/16/19 06:59 06:59 06:59 Intake Total 600 560 Output Total 6175 875 Balance -475 -315 Weight 129.1 kg 128.7 kg General appearance: PRESENT: no acute distress, cooperative, morbidly obese, well-developed, well-nourished Head exam: PRESENT: atraumatic, normocephalic Eye exam: PRESENT: conjunctiva pink, EOMI, PERRLA. ABSENT: scleral icterus Ear exam: PRESENT: normal external ear exam Mouth exam: PRESENT: moist, tongue midline Respiratory exam: PRESENT: clear to auscultation aroldo, symmetrical, unlabored, other - supplemental oxygen via NC. ABSENT: rales, rhonchi, wheezes Cardiovascular exam: PRESENT: RRR, +S1, +S2. ABSENT: diastolic murmur, rubs, systolic murmur Pulses: PRESENT: normal dorsalis pedis pul Vascular exam: PRESENT: normal capillary refill GI/Abdominal exam: PRESENT: normal bowel sounds, soft, tenderness. ABSENT: distended, guarding, mass, organolmegaly, rebound Rectal exam: PRESENT: deferred Extremities exam: PRESENT: full ROM. ABSENT: calf tenderness, clubbing, pedal edema Neurological exam: PRESENT: alert, awake, oriented to person, oriented to place, oriented to time, oriented to situation, CN II-XII grossly intact. ABSENT: motor sensory deficit Psychiatric exam: PRESENT: appropriate affect, normal mood. ABSENT: homicidal ideation, suicidal ideation Skin exam: PRESENT: dry, intact, warm. ABSENT: cyanosis, rash Results Laboratory Results: 08/15/19 04:29 08/14/19 13:37 08/14/19 08/15/19 13:37 04:29 WBC 13.6 H RBC 4.18 Hgb 12.0 Hct 36.8 MCV 88 MCH 28.7 MCHC 32.6 RDW 16.7 H Plt Count 267 Creatinine 0.60 Est GFR ( Amer) > 60 08/05/19 08/05/19 08/05/19 05:10 05:10 10:59 Creatine Kinase 39 CK-MB (CK-2) 0.73 Troponin I 0.051 0.112 NT-Pro-B Natriuret Pep 08/05/19 08/13/19 16:43 04:00 Creatine Kinase CK-MB (CK-2) 1.07 Troponin I 0.062 NT-Pro-B Natriuret Pep 1320 H Impressions: Abdomen MRI 08/05/19 00:00 IMPRESSION: 1. The common bile duct is dilated, measuring up to 1.1 cm in caliber. There is an elongated filling defect in the distal common bile duct within the pancreatic head concerning for one or more calculi, measuring 1.6 cm in length and 0.5 cm in caliber (series 6, image 51). 2. Cholelithiasis with mild distention of the gallbladder. Abdomen Ultrasound 08/05/19 07:56 IMPRESSION: Limited exam secondary to body habitus and bowel gas. 1. Cholelithiasis with dilated CBD measuring up to 11 mm. No definite intrahepatic ductal dilation. Findings suggestive of choledocholithiasis. Recommend correlation with LFTs for evidence of biliary obstruction. MRCP or ERCP could be considered for further confirmation. 2. Hepatic steatosis. Catheter Placement 08/08/19 00:00 IMPRESSION: IMAGE(S) OBTAINED DURING PROCEDURE. Fluoroscopy 08/08/19 00:00 IMPRESSION: IMAGE(S) OBTAINED DURING PROCEDURE. Chest/Abdomen CTA 08/09/19 00:00 IMPRESSION: 1. No CT evidence for pulmonary embolism. 2. Mild diffuse interstitial infiltrate, likely cardiogenic pulmonary edema. Cannot exclude an atypical interstitial pneumonia. 3. Cholelithiasis Abdomen/Pelvis CT 08/13/19 00:00 IMPRESSION: 1. Postoperative findings as detailed above. 2. Bilateral caliceal calculi that measure up to 3 mm. There is no hydronephrosis. 3. Colonic diverticulosis without other associated ancillary findings to indicate an acute diverticulitis. Chest CT 08/13/19 00:00 IMPRESSION: Collapse of the lateral segment of the middle lobe - new from 08/09/2019. Other findings including the subpleural and band-like opacities/areas of consolidation in the lingula and lower lobes are unchanged. Chest X-Ray 08/13/19 00:00 IMPRESSION: Low inspiratory lung volume and new patchy opacities in the left base that could represent atelectasis. Clinical correlation to exclude a pneumonia is recommended. Assessment and Plan - Diagnosis (1) Calculus of common bile duct with acute cholecystitis Is this a current diagnosis for this admission?: Yes Plan: s/p ERCP by Dr. Jacques. s/p cholecystectomy and open small bowel repair Will discontinue Zosyn today. Diet per surgery. Analgesics and antiemetics as needed. (2) Acute respiratory failure with hypoxia Is this a current diagnosis for this admission?: Yes Plan: Continued improved. Remains on supplemental oxygen; unlabored breathing w/ clear lungs today. Did not tolerate CPAP. Multifactorial seconary to RML lateral lung collapse and possible laryngeal edema related to intubation. CTA (08/09/19) revealed mild diffuse interstitial infiltrates, likely cardiogenic. CT Chest (08/13/19) Collapse of the lateral segment of the middle lobe (new) and subpleural and band-like opacities/consolidation to the lingula and lower lobes (unchanged) ABG reveals hypoxia Schedule and as needed nebulizer treatments. Wean to prednisone today. Incentive spirometer to bedside. Out of bed for meals, ambulate, wean oxygen. Discussed w/ Dr. Do's who did see the patient; Pt did not tolerate CPAP. Consider HFNC. (3) Abdominal pain Is this a current diagnosis for this admission?: Yes Plan: Improved. Secondary to #1. Management as above. (4) Fever Qualifiers: Fever type: unspecified Qualified Code(s): R50.9 - Fever, unspecified Is this a current diagnosis for this admission?: Yes Plan: Resolved; patient has been afebrile >48 hrs. Secondary to #1. Management as above. (5) Morbid obesity with BMI of 40.0-44.9, adult Is this a current diagnosis for this admission?: Yes Plan: BMI 43.4 Dietary and lifestyle modifications encouraged. Cardiac diet. shirt ironer is consulted. (6) UTI (urinary tract infection) Qualifiers: Urinary tract infection type: acute cystitis Hematuria presence: with hematuria Qualified Code(s): N30.01 - Acute cystitis with hematuria Is this a current diagnosis for this admission?: Yes Plan: Urinalysis positive for UTI. Urine culture demonstrates 2 strains of pansensitive E. coli. Blood cultures (08/05/2019) positive for E. coli in 1 set. Follow up blood cultures (08/11/19) are negative at 4 days Completed full course of Zosyn (7) Bacteremia Is this a current diagnosis for this admission?: Yes Plan: Blood cultures (08/05/2019) positive for E. coli in 1 set. Repeat cultures (08/11/19) are negative to date. Completed 10 day course of Zosyn. (8) Dyspnea Qualifiers: Dyspnea type: acute respiratory distress Qualified Code(s): R06.03 - Acute respiratory distress Is this a current diagnosis for this admission?: Yes Plan: Gradual improvement. Management as above. (9) Atrial flutter with rapid ventricular response Is this a current diagnosis for this admission?: Yes Plan: Now rate controlled. Xarelto has been placed on hold secondary to ERCP and planned laparoscopic cholecystectomy. Lap madison has been delayed secondary to acute respiratory respiratory distress (pulmonary edema). Therefore, have started on heparin drip. Discussed w/ Surgery; Heparin to be placed on hold 2 hours prior to OR time. Will discuss w/ Surgery resuming heparin gtt. Transition back to Xarelto at d/c. Continue diltiazem 180 mg BID. We will continue home dose sotalol. Continue cardiac telemetry. Cardiac diet. - Time Time Spent with patient: 25-34 minutes Medications reviewed and adjusted accordingly: Yes Anticipated discharge: Home with Homehealth Within: within 72 hours
--- NOTE | 2019-08-15 17:19 | PDOC PROGRESS REPORT ---
Subjective Reason For Visit: ABDOMINAL PAIN,CHRONIC AFIB,CHOLEDOCHOLITHIASIS Physical Exam Vital Signs: Temp Pulse Resp BP Pulse Ox 97.6 F 83 20 132/71 H 94 08/15/19 16:00 08/15/19 16:00 08/15/19 16:00 08/15/19 16:00 08/15/19 16:00 Pulse Oximeter Nocturnal Start: 08/11/19 17:32 Freq: RTQ4 Status: Complete Protocol: Document 08/12/19 04:34 DBE (Rec: 08/12/19 04:34 DBE [id number]) Nocturnal Pulse Oximetry Equipment Usage Equipment in Use Nocturnal Spo2 Charge Charge Now Oxygen Delivery Method (includes room Room Air air) O2 Sat by Pulse Oximetry (92-100) 92 Continuous SpO2 Machine # [id number] Intake & Output 08/14/19 08/15/19 08/16/19 06:59 06:59 06:59 Intake Total 600 560 360 Output Total 1075 875 300 Balance -475 -315 60 Weight 129.1 kg 128.7 kg Results Laboratory Results: 08/15/19 04:29 08/14/19 13:37 08/15/19 04:29 WBC 13.6 H RBC 4.18 Hgb 12.0 Hct 36.8 MCV 88 MCH 28.7 MCHC 32.6 RDW 16.7 H Plt Count 267 08/05/19 08/05/19 08/05/19 05:10 05:10 10:59 Creatine Kinase 39 CK-MB (CK-2) 0.73 Troponin I 0.051 0.112 NT-Pro-B Natriuret Pep 08/05/19 08/13/19 16:43 04:00 Creatine Kinase CK-MB (CK-2) 1.07 Troponin I 0.062 NT-Pro-B Natriuret Pep 1320 H Impressions: Abdomen MRI 08/05/19 00:00 IMPRESSION: 1. The common bile duct is dilated, measuring up to 1.1 cm in caliber. There is an elongated filling defect in the distal common bile duct within the pancreatic head concerning for one or more calculi, measuring 1.6 cm in length and 0.5 cm in caliber (series 6, image 51). 2. Cholelithiasis with mild distention of the gallbladder. Abdomen Ultrasound 08/05/19 07:56 IMPRESSION: Limited exam secondary to body habitus and bowel gas. 1. Cholelithiasis with dilated CBD measuring up to 11 mm. No definite intrahepatic ductal dilation. Findings suggestive of choledocholithiasis. Recommend correlation with LFTs for evidence of biliary obstruction. MRCP or ERCP could be considered for further confirmation. 2. Hepatic steatosis. Catheter Placement 08/08/19 00:00 IMPRESSION: IMAGE(S) OBTAINED DURING PROCEDURE. Fluoroscopy 08/08/19 00:00 IMPRESSION: IMAGE(S) OBTAINED DURING PROCEDURE. Chest/Abdomen CTA 08/09/19 00:00 IMPRESSION: 1. No CT evidence for pulmonary embolism. 2. Mild diffuse interstitial infiltrate, likely cardiogenic pulmonary edema. Cannot exclude an atypical interstitial pneumonia. 3. Cholelithiasis Abdomen/Pelvis CT 08/13/19 00:00 IMPRESSION: 1. Postoperative findings as detailed above. 2. Bilateral caliceal calculi that measure up to 3 mm. There is no hydronephrosis. 3. Colonic diverticulosis without other associated ancillary findings to indicate an acute diverticulitis. Chest CT 08/13/19 00:00 IMPRESSION: Collapse of the lateral segment of the middle lobe - new from 08/09/2019. Other findings including the subpleural and band-like opacities/areas of consolidation in the lingula and lower lobes are unchanged. Chest X-Ray 08/13/19 00:00 IMPRESSION: Low inspiratory lung volume and new patchy opacities in the left base that could represent atelectasis. Clinical correlation to exclude a pneumonia is recommended. Assessment & Plan - Diagnosis (1) Choledocholithiasis Is this a current diagnosis for this admission?: Yes - Time Time Spent with patient: Less than 15 minutes - Plan Summary Plan Summary: This is a 69-year-old female status post laparoscopic cholecystectomy with open small bowel repair due to an intraoperative enterotomy. The patient is doing well today. She was out of bed yesterday. Her STUART drains are minimally productive. I will remove her inferior surgical drain today. She is afebrile, without signs of tachycardia or decompensation. She is passing flatus today. Tolerating full liquids. Advance diet. Will follow.
[2019-08-15] MEDS: PREDNISONE 20 MG TABLET PO SCH (17:31)
[2019-08-16] MEDS: TRAMADOL HCL 50 MG TABLET PO PRN ×3 (00:25→20:31)
[2019-08-16] MEDS: IPRATROPIUM/ALBUTEROL 0.5-2.5 MG/3 ML AMPUL NEB SCH ×3 (02:54→16:04)
[2019-08-16] MEDS: MORPHINE SULFATE 10 MG/ML INJ IV PRN (03:44)
[2019-08-16 05:26] LABS: HEMATOCRIT 38.6 % (36.0-47.0); HEMOGLOBIN 12.2 g/dL (12.0-15.5); MEAN CORPUSCULAR HEMOGLOBIN 28.1 pg (27.0-33.4); MEAN CORPUSCULAR HGB CONC 31.7 g/dL (32.0-36.0); MEAN CORPUSCULAR VOLUME 89 fl (80-97); PLATELET COUNT 362 10^3/uL (150-450); RED BLOOD COUNT 4.35 10^6/uL (3.72-5.28); RED CELL DISTRIBUTION WIDTH 16.4 % (11.5-14.0); WHITE BLOOD COUNT 14.1 10^3/uL (4.0-10.5)
[2019-08-16 05:49] LABS: ANION GAP 10 (5-19); BLOOD UREA NITROGEN 15 mg/dL (7-20); CALCIUM 9.9 mg/dL (8.4-10.2); CARBON DIOXIDE 28 mmol/L (22-30); CHLORIDE 101 mmol/L (98-107); GLUCOSE 129 mg/dL (75-110); POTASSIUM 4.8 mmol/L (3.6-5.0)
[2019-08-16] MEDS: ACETYLCYSTEINE 20% SOLN 800 MG/4 ML VIAL.NEB NEB SCH (08:05)
--- NOTE | 2019-08-16 09:20 | PDOC PROGRESS REPORT ---
Subjective Progress Note for:: 08/16/19 Subjective:: The patient has no complaints, she reports good appetite, no nausea vomiting, flatus, and 1 bowel movement today Reason For Visit: ABDOMINAL PAIN,CHRONIC AFIB,CHOLEDOCHOLITHIASIS Physical Exam Vital Signs: Temp Pulse Resp BP Pulse Ox 97.2 F 72 16 133/71 H 94 08/16/19 07:25 08/16/19 08:09 08/16/19 08:09 08/16/19 07:25 08/16/19 08:09 Pulse Oximeter Nocturnal Start: 08/11/19 17:32 Freq: RTQ4 Status: Complete Protocol: Document 08/12/19 04:34 DBE (Rec: 08/12/19 04:34 DBE [email or web address]) Nocturnal Pulse Oximetry Equipment Usage Equipment in Use Nocturnal Spo2 Charge Charge Now Oxygen Delivery Method (includes room Room Air air) O2 Sat by Pulse Oximetry (92-100) 92 Continuous SpO2 Machine # [id number] Intake & Output 08/15/19 08/16/19 08/17/19 06:59 06:59 06:59 Intake Total 560 1280 Output Total 875 600 Balance -315 680 Weight 128.7 kg 130.2 kg General appearance: PRESENT: no acute distress, obese Respiratory exam: PRESENT: clear to auscultation aroldo Cardiovascular exam: PRESENT: RRR GI/Abdominal exam: PRESENT: normal bowel sounds, soft - Not distended, not tender, midline incision clean, dry, and intact; left upper quadrant Gigi- Finney drain with serosanguineous fluid Results Laboratory Results: 08/16/19 05:07 08/16/19 05:07 08/16/19 08/16/19 05:07 05:07 WBC 14.1 H RBC 4.35 Hgb 12.2 Hct 38.6 MCV 89 MCH 28.1 MCHC 31.7 L RDW 16.4 H Plt Count 362 Sodium 139.0 Potassium 4.8 Chloride 101 Carbon Dioxide 28 Anion Gap 10 BUN 15 Creatinine 0.49 L Est GFR ( Amer) > 60 Glucose 129 H Calcium 9.9 08/11/19 06:59 Blood Blood Culture - Final NO GROWTH IN 5 DAYS 08/11/19 03:20 Blood Blood Culture - Final NO GROWTH IN 5 DAYS 08/05/19 08/05/19 08/05/19 05:10 05:10 10:59 Creatine Kinase 39 CK-MB (CK-2) 0.73 Troponin I 0.051 0.112 NT-Pro-B Natriuret Pep 08/05/19 08/13/19 16:43 04:00 Creatine Kinase CK-MB (CK-2) 1.07 Troponin I 0.062 NT-Pro-B Natriuret Pep 1320 H Impressions: Abdomen MRI 08/05/19 00:00 IMPRESSION: 1. The common bile duct is dilated, measuring up to 1.1 cm in [place]. There is an elongated filling defect in the distal common bile duct within the pancreatic head concerning for one or more calculi, measuring 1.6 cm in length and 0.5 cm in caliber (series 6, image 51). 2. Cholelithiasis with mild distention of the gallbladder. Abdomen Ultrasound 08/05/19 07:56 IMPRESSION: Limited exam secondary to body habitus and bowel gas. 1. Cholelithiasis with dilated CBD measuring up to 11 mm. No definite intrahepatic ductal dilation. Findings suggestive of choledocholithiasis. Recommend correlation with LFTs for evidence of biliary obstruction. MRCP or ERCP could be considered for further confirmation. 2. Hepatic steatosis. Catheter Placement 08/08/19 00:00 IMPRESSION: IMAGE(S) OBTAINED DURING PROCEDURE. Fluoroscopy 08/08/19 00:00 IMPRESSION: IMAGE(S) OBTAINED DURING PROCEDURE. Chest/Abdomen CTA 08/09/19 00:00 IMPRESSION: 1. No CT evidence for pulmonary embolism. 2. Mild diffuse interstitial infiltrate, likely cardiogenic pulmonary edema. Cannot exclude an atypical interstitial pneumonia. 3. Cholelithiasis Abdomen/Pelvis CT 08/13/19 00:00 IMPRESSION: 1. Postoperative findings as detailed above. 2. Bilateral caliceal calculi that measure up to 3 mm. There is no hydronephrosis. 3. Colonic diverticulosis without other associated ancillary findings to indicate an acute diverticulitis. Chest CT 08/13/19 00:00 IMPRESSION: Collapse of the lateral segment of the middle lobe - new from 08/09/2019. Other findings including the subpleural and band-like op acities/areas of consolidation in the lingula and lower lobes are unchanged. Chest X-Ray 08/13/19 00:00 IMPRESSION: Low inspiratory lung volume and new patchy opacities in the left base that could represent atelectasis. Clinical correlation to exclude a pneumonia is recommended. Assessment & Plan - Diagnosis (1) Status post cholecystectomy Is this a current diagnosis for this admission?: Yes (2) status post enterotomy repair Is this a current diagnosis for this admission?: Yes (3) Calculus of common bile duct with acute cholecystitis Is this a current diagnosis for this admission?: Yes (4) Choledocholithiasis Is this a current diagnosis for this admission?: Yes - Time Time Spent with patient: 25-34 minutes - Plan Summary Plan Summary: Assessment: Morbidly obese 60-year-old female postop day #4 following a laparoscopic cholecystectomy with open repair of small bowel enterotomy via mini laparotomy Patient hemodynamically stable, afebrile Good appetite, diet tolerated Abdomen soft, not distended, not tender, midline incision clean, dry, and intact Drain right upper quadrant of the abdomen =60 mL output during the past 24 hours White blood cell count 18,000, most likely due to the administration of steroids Plan: Advance diet to diabetic diet Change Pepcid to p.o. Stop IV narcotics Continue Tramadol Keep right upper quadrant abdominal drain until output is less than 30 mL for 2 days in a row No other acute general surgery issues identified Patient can be discharged to home in a.m., follow-up with Dr. Hope in the office in 1 week for drain removal
[2019-08-16] MEDS: LATANOPROST 0.005% OPH SOLN 2.5 ML OU SCH ×2 (09:21→22:00)
[2019-08-16] MEDS: SOTALOL HCL 80 MG TABLET PO SCH (09:21)
[2019-08-16] MEDS: PREDNISONE 20 MG TABLET PO SCH (09:22)
[2019-08-16] MEDS: GUAIFENESIN 600 MG TABLET.SA PO SCH ×2 (09:22→21:58)
[2019-08-16] MEDS: POTASSIUM CHLORIDE 10 MEQ TABLET.ER PO SCH (09:22)
[2019-08-16] MEDS: DOCUSATE SODIUM 100 MG CAPSULE PO SCH (09:22)
[2019-08-16] MEDS: DILTIAZEM HCL 180 MG CAPSULE.CR PO SCH ×2 (09:22→21:59)
--- NOTE | 2019-08-16 10:34 | PDOC PROGRESS REPORT ---
Subjective Progress Note for:: 08/16/19 Subjective:: The patient is a 69-year-old female with a past medical history of atrial fibrillation, hypertension, and morbid obesity who was admitted 08/05/2019 for Acute cholecystitis. She was seen on morning rounds. Patient was found resting in bed on supplemental oxygen at 4 lpm. She appears comfortable today, even and unlabored breathing, speaking full sentences; no accessory muscle use w/ clear lung sounds. Patient reports that she is feeling well; hopeful to d/c home. Decreased pain, tolerating p.o. intake, (+) bm yesterday. She further denies fever, chills, chest pain, palpitations, dyspnea, orthopnea, cough, nausea, vomiting, diarrhea. She has no other questions or concerns. No concerns per nursing. Reason For Visit: ABDOMINAL PAIN,CHRONIC AFIB,CHOLEDOCHOLITHIASIS Physical Exam Vital Signs: Temp Pulse Resp BP Pulse Ox 97.2 F 72 16 133/71 H 94 08/16/19 07:25 08/16/19 08:09 08/16/19 08:09 08/16/19 07:25 08/16/19 08:09 Pulse Oximeter Nocturnal Start: 08/11/19 17:32 Freq: RTQ4 Status: Complete Protocol: Document 08/12/19 04:34 DBE (Rec: 08/12/19 04:34 DBE [id number]) Nocturnal Pulse Oximetry Equipment Usage Equipment in Use Nocturnal Spo2 Charge Charge Now Oxygen Delivery Method (includes room Room Air air) O2 Sat by Pulse Oximetry (92-100) 92 Continuous SpO2 Machine # [id number] Intake & Output 08/15/19 08/16/19 08/17/19 06:59 06:59 06:59 Intake Total 560 1280 Output Total 875 600 Balance -315 680 Weight 128.7 kg 130.2 kg General appearance: PRESENT: no acute distress, cooperative, morbidly obese, well-developed, well-nourished Head exam: PRESENT: atraumatic, normocephalic Eye exam: PRESENT: conjunctiva pink, EOMI, PERRLA. ABSENT: scleral icterus Ear exam: PRESENT: normal external ear exam Mouth exam: PRESENT: moist, tongue midline Neck exam: ABSENT: carotid bruit, JVD, lymphadenopathy, thyromegaly Respiratory exam: PRESENT: clear to auscultation aroldo, symmetrical, unlabored, other - supplemental oxygen via NC. ABSENT: rales, rhonchi, wheezes Cardiovascular exam: PRESENT: RRR. ABSENT: diastolic murmur, rubs, systolic murmur Pulses: PRESENT: normal dorsalis pedis pul Vascular exam: PRESENT: normal capillary refill GI/Abdominal exam: PRESENT: normal bowel sounds, soft. ABSENT: distended, guarding, mass, organolmegaly, rebound, tenderness Rectal exam: PRESENT: deferred Extremities exam: PRESENT: full ROM. ABSENT: calf tenderness, clubbing, pedal edema Neurological exam: PRESENT: alert, awake, oriented to person, oriented to place, oriented to time, oriented to situation, CN II-XII grossly intact. ABSENT: motor sensory deficit Psychiatric exam: PRESENT: appropriate affect, normal mood. ABSENT: homicidal ideation, suicidal ideation Skin exam: PRESENT: dry, intact, warm. ABSENT: cyanosis, rash Results Laboratory Results: 08/16/19 05:07 08/16/19 05:07 08/16/19 08/16/19 05:07 05:07 WBC 14.1 H RBC 4.35 Hgb 12.2 Hct 38.6 MCV 89 MCH 28.1 MCHC 31.7 L RDW 16.4 H Plt Count 362 Sodium 139.0 Potassium 4.8 Chloride 101 Carbon Dioxide 28 Anion Gap 10 BUN 15 Creatinine 0.49 L Est GFR ( Amer) > 60 Glucose 129 H Calcium 9.9 08/11/19 06:59 Blood Blood Culture - Final NO GROWTH IN 5 DAYS 08/11/19 03:20 Blood Blood Culture - Final NO GROWTH IN 5 DAYS 08/05/19 08/05/19 08/05/19 05:10 05:10 10:59 Creatine Kinase 39 CK-MB (CK-2) 0.73 Troponin I 0.051 0.112 NT-Pro-B Natriuret Pep 08/05/19 08/13/19 16:43 04:00 Creatine Kinase CK-MB (CK-2) 1.07 Troponin I 0.062 NT-Pro-B Natriuret Pep 1320 H Impressions: Abdomen MRI 08/05/19 00:00 IMPRESSION: 1. The common bile duct is dilated, measuring up to 1.1 cm in caliber. There is an elongated filling defect in the distal common bile duct within the pancreatic head concerning for one or more calculi, measuring 1.6 cm in length and 0.5 cm in caliber (series 6, image 51). 2. Cholelithiasis with mild distention of the gallbladder. Abdomen Ultrasound 08/05/19 07:56 IMPRESSION: Limited exam secondary to body habitus and bowel gas. 1. Cholelithiasis with dilated CBD measuring up to 11 mm. No definite intrahepatic ductal dilation. Findings suggestive of choledocholithiasis. Recommend correlation with LFTs for evidence of biliary obstruction. MRCP or ERCP could be considered for further confirmation. 2. Hepatic steatosis. Catheter Placement 08/08/19 00:00 IMPRESSION: IMAGE(S) OBTAINED DURING PROCEDURE. Fluoroscopy 08/08/19 00:00 IMPRESSION: IMAGE(S) OBTAINED DURING PROCEDURE. Chest/Abdomen CTA 08/09/19 00:00 IMPRESSION: 1. No CT evidence for pulmonary embolism. 2. Mild diffuse interstitial infiltrate, likely cardiogenic pulmonary edema. Cannot exclude an atypical interstitial pneumonia. 3. Cholelithiasis Abdomen/Pelvis CT 08/13/19 00:00 IMPRESSION: 1. Postoperative findings as detailed above. 2. Bilateral caliceal calculi that measure up to 3 mm. There is no hydronephrosis. 3. Colonic diverticulosis without other associated ancillary findings to indicate an acute diverticulitis. Chest CT 08/13/19 00:00 IMPRESSION: Collapse of the lateral segment of the middle lobe - new from 07/25. Other findings including the subpleural and band-like opacities/areas of consolidation in the lingula and lower lobes are unchanged. Chest X-Ray 08/13/19 00:00 IMPRESSION: Low inspiratory lung volume and new patchy opacities in the left base that could represent atelectasis. Clinical correlation to exclude a pneumonia is recommended. Assessment and Plan - Diagnosis (1) Calculus of common bile duct with acute cholecystitis Is this a current diagnosis for this admission?: Yes Plan: s/p ERCP by Dr. Jacques. s/p cholecystectomy and open small bowel repair Diet advanced per surgery. Analgesics and antiemetics as needed. Surgery has cleared patient for d/c home w/ outpatient follow up in 1 week. (2) Acute respiratory failure with hypoxia Is this a current diagnosis for this admission?: Yes Plan: Continued improvement. Remains on supplemental oxygen; unlabored breathing w/ clear lungs today. Multifactorial seconary to RML lateral lung collapse and possible laryngeal edema related to intubation. CTA (08/09/19) revealed mild diffuse interstitial infiltrates, likely cardiogenic. CT Chest (08/13/19) Collapse of the lateral segment of the middle lobe (new) and subpleural and band-like opacities/consolidation to the lingula and lower lobes (unchanged) ABG reveals hypoxia Schedule and as needed nebulizer treatments; decreased frequency. Wean prednisone today. Incentive spirometer to bedside. Out of bed for meals, ambulate, wean oxygen. (3) Abdominal pain Is this a current diagnosis for this admission?: Yes Plan: Improved. Secondary to #1. Management as above. (4) Fever Qualifiers: Fever type: unspecified Qualified Code(s): R50.9 - Fever, unspecified Is this a current diagnosis for this admission?: Yes Plan: Resolved; patient has been afebrile >48 hrs. Secondary to #1. Management as above. (5) Morbid obesity with BMI of 40.0-44.9, adult Is this a current diagnosis for this admission?: Yes Plan: BMI 43.6 Dietary and lifestyle modifications encouraged. Cardiac diet. insurance follow up rep is consulted. (6) UTI (urinary tract infection) Qualifiers: Urinary tract infection type: acute cystitis Hematuria presence: with hematuria Qualified Code(s): N30.01 - Acute cystitis with hematuria Is this a current diagnosis for this admission?: Yes Plan: Urinalysis positive for UTI. Urine culture demonstrates 2 strains of pansensitive E. coli. Blood cultures (08/05/2019) positive for E. coli in 1 set. Follow up blood cultures (08/11/19) are negative at 4 days Completed full course of Zosyn (7) Bacteremia Is this a current diagnosis for this admission?: Yes Plan: Blood cultures (08/05/2019) positive for E. coli in 1 set. Repeat cultures (08/11/19) are negative to date. Completed 10 day course of Zosyn. (8) Dyspnea Qualifiers: Dyspnea type: acute respiratory distress Qualified Code(s): R06.03 - Acute respiratory distress Is this a current diagnosis for this admission?: Yes Plan: Gradual improvement. Management as above. (9) Atrial flutter with rapid ventricular response Is this a current diagnosis for this admission?: Yes Plan: Now rate controlled. Xarelto has been placed on hold secondary to ERCP and planned laparoscopic cholecystectomy. Lap madison has been delayed secondary to acute respiratory respiratory distress (pulmonary edema). Therefore, have started on heparin drip. Discussed w/ Surgery; Heparin to be placed on hold 2 hours prior to OR time. Will discuss w/ Surgery resuming heparin gtt. Transition back to Xarelto at d/c. Continue diltiazem 180 mg BID. We will continue home dose sotalol. Continue cardiac telemetry. Cardiac diet. - Plan Summary Summary: Surgery has cleared patient for d/c with outpatient follow up. Aggressive pulmonary toilet. Ready for d/c home once off supplemental oxygen. - Time Time Spent with patient: 25-34 minutes Medications reviewed and adjusted accordingly: Yes Anticipated discharge: Home Within: within 24 hours - pending respiratory status
[2019-08-16] MEDS: FAMOTIDINE 20 MG TABLET PO SCH ×2 (10:48→21:59)
[2019-08-16] MEDS: ACETAMINOPHEN 325 MG TABLET PO PRN (13:21)
[2019-08-17] MEDS: IPRATROPIUM/ALBUTEROL 0.5-2.5 MG/3 ML AMPUL NEB SCH ×4 (00:03→23:51)
[2019-08-17] MEDS: TRAMADOL HCL 50 MG TABLET PO PRN ×3 (02:48→21:58)
[2019-08-17 06:12] LABS: ALBUMIN 3.3 g/dL (3.5-5.0); ALKALINE PHOSPHATASE 61 U/L (38-126); ANION GAP 12 (5-19); ASPARTATE AMINO TRANSFERASE 49 U/L (14-36); BILIRUBIN,DIRECT 0.2 mg/dL (0.0-0.4); BILIRUBIN,TOTAL 0.5 mg/dL (0.2-1.3); BLOOD UREA NITROGEN 13 mg/dL (7-20); CALCIUM 9.9 mg/dL (8.4-10.2); CARBON DIOXIDE 27 mmol/L (22-30); CHLORIDE 100 mmol/L (98-107); GLUCOSE 72 mg/dL (75-110); POTASSIUM 4.3 mmol/L (3.6-5.0); TOTAL PROTEIN 6.3 g/dL (6.3-8.2)
[2019-08-17] MEDS: DILTIAZEM HCL 180 MG CAPSULE.CR PO SCH ×2 (09:17→21:54)
[2019-08-17] MEDS: POTASSIUM CHLORIDE 10 MEQ TABLET.ER PO SCH (09:18)
[2019-08-17] MEDS: SOTALOL HCL 80 MG TABLET PO SCH ×2 (09:18→21:53)
[2019-08-17] MEDS: FAMOTIDINE 20 MG TABLET PO SCH ×2 (09:18→21:55)
[2019-08-17] MEDS: DOCUSATE SODIUM 100 MG CAPSULE PO SCH (09:19)
[2019-08-17] MEDS: LATANOPROST 0.005% OPH SOLN 2.5 ML OU SCH ×2 (09:19→21:53)
[2019-08-17] MEDS: GUAIFENESIN 600 MG TABLET.SA PO SCH ×2 (09:19→21:55)
[2019-08-17] MEDS: PREDNISONE 20 MG TABLET PO SCH (09:19)
--- NOTE | 2019-08-17 09:50 | PDOC PROGRESS REPORT ---
Subjective Progress Note for:: 08/17/19 Subjective:: This is a pleasant morbidly obese 69-year-old female resting comfortably in bed. She has a Gigi-Finney drain and right side of her abdomen. There is some serous drainage. She has some discomfort on the right. She is on 2 L nasal cannula oxygen and has a slight expiratory wheeze (but this could be positional). Per surgery she will be discharged with her STUART drain in place. Upon walking to the restroom the patient began to have rapid A. fib and become more short of breath. She reported feeling extremely weak and struggled somewhat to get back to bed even with her walker. She had not received her diltiazem or sotalol yet this morning. This will be given now. I have asked cardiology to see the patient as well. Reason For Visit: ABDOMINAL PAIN,CHRONIC AFIB,CHOLEDOCHOLITHIASIS Physical Exam Vital Signs: Temp Pulse Resp BP Pulse Ox 97.8 F 74 18 129/79 H 94 08/17/19 08:16 08/17/19 08:16 08/17/19 08:16 08/17/19 08:16 08/17/19 08:16 Pulse Oximeter Nocturnal Start: 08/11/19 17:32 Freq: RTQ4 Status: Complete Protocol: Document 08/12/19 04:34 DBE (Rec: 08/12/19 04:34 DBE [id number]) Nocturnal Pulse Oximetry Equipment Usage Equipment in Use Nocturnal Spo2 Charge Charge Now Oxygen Delivery Method (includes room Room Air air) O2 Sat by Pulse Oximetry (92-100) 92 Continuous SpO2 Machine # [id number] Intake & Output 08/16/19 08/17/19 08/18/19 06:59 06:59 06:59 Intake Total 1280 594 Output Total 600 1300 Balance 680 -706 Weight 130.2 kg 131.6 kg General appearance: PRESENT: mild distress, morbidly obese Head exam: PRESENT: atraumatic, normocephalic Ear exam: PRESENT: normal external ear exam. ABSENT: bleeding, drainage Mouth exam: PRESENT: moist Respiratory exam: PRESENT: clear to auscultation aroldo - Anteriorly, wheezes - Positional. Clears when sitting.. ABSENT: rales, rhonchi Cardiovascular exam: PRESENT: irregular rhythm - Rapid irregular rhythm, tachycardia GI/Abdominal exam: PRESENT: normal bowel sounds, soft, tenderness - Around the incision and STUART drain site, other - Healing midline and instrumentation incisions. Rectal exam: PRESENT: deferred Extremities exam: ABSENT: joint swelling, pedal edema Musculoskeletal exam: PRESENT: ambulatory - Uses a walker Neurological exam: PRESENT: alert, awake, oriented to person, oriented to place, oriented to time, CN II-XII grossly intact Psychiatric exam: ABSENT: agitated, anxious Skin exam: PRESENT: dry, normal color, warm. ABSENT: rash Additional comments: After the initial encounter I was alerted by nursing that the patient was walking back to bed feeling extremely weak. Her heart rate was noted to be 150 with her underlying atrial fibrillation. She had not received her morning diltiazem or sotalol. We will administer these medications and cardiology will see the patient as well. Results Laboratory Results: 08/16/19 05:07 08/17/19 05:01 08/17/19 05:01 Sodium 139.4 Potassium 4.3 Chloride 100 Carbon Dioxide 27 Anion Gap 12 BUN 13 Creatinine 0.50 L Est GFR ( Amer) > 60 Glucose 72 L Calcium 9.9 Total Bilirubin 0.5 AST 49 H Alkaline Phosphatase 61 Total Protein 6.3 Albumin 3.3 L 08/11/19 06:59 Blood Blood Culture - Final NO GROWTH IN 5 DAYS 08/05/19 08/05/19 08/05/19 05:10 05:10 10:59 Creatine Kinase 39 CK-MB (CK-2) 0.73 Troponin I 0.051 0.112 NT-Pro-B Natriuret Pep 08/05/19 08/13/19 16:43 04:00 Creatine Kinase CK-MB (CK-2) 1.07 Troponin I 0.062 NT-Pro-B Natriuret Pep 1320 H Impressions: Abdomen MRI 08/05/19 00:00 IMPRESSION: 1. The common bile duct is dilated, measuring up to 1.1 cm in calib er. There is an elongated filling defect in the distal common bile duct within the pancreatic head concerning for one or more calculi, measuring 1.6 cm in length and 0.5 cm in caliber (series 6, image 51). 2. Cholelithiasis with mild distention of the gallbladder. Abdomen Ultrasound 08/05/19 07:56 IMPRESSION: Limited exam secondary to body habitus and bowel gas. 1. Cholelithiasis with dilated CBD measuring up to 11 mm. No definite intrahepatic ductal dilation. Findings suggestive of choledocholithiasis. Recommend correlation with LFTs for evidence of biliary obstruction. MRCP or ERCP could be considered for further confirmation. 2. Hepatic steatosis. Catheter Placement 08/08/19 00:00 IMPRESSION: IMAGE(S) OBTAINED DURING PROCEDURE. Fluoroscopy 08/08/19 00:00 IMPRESSION: IMAGE(S) OBTAINED DURING PROCEDURE. Chest/Abdomen CTA 08/09/19 00:00 IMPRESSION: 1. No CT evidence for pulmonary embolism. 2. Mild diffuse interstitial infiltrate, likely cardiogenic pulmonary edema. Cannot exclude an atypical interstitial pneumonia. 3. Cholelithiasis Abdomen/Pelvis CT 08/13/19 00:00 IMPRESSION: 1. Postoperative findings as detailed above. 2. Bilateral caliceal calculi that measure up to 3 mm. There is no hydronephrosis. 3. Colonic diverticulosis without other associated ancillary findings to indicate an acute diverticulitis. Chest CT 08/13/19 00:00 IMPRESSION: Collapse of the lateral segment of the middle lobe - new from 08/09/2019. Other findings including the subpleural and band-like opa cities/areas of consolidation in the lingula and lower lobes are unchanged. Chest X-Ray 08/13/19 00:00 IMPRESSION: Low inspiratory lung volume and new patchy opacities in the left base that could represent atelectasis. Clinical correlation to exclude a pneumonia is recommended. Assessment and Plan - Diagnosis (1) Calculus of common bile duct with acute cholecystitis Is this a current diagnosis for this admission?: Yes Plan: 08/17/2019-the patient underwent ERCP with subsequent open cholecystectomy and small bowel repair. Incisions are healing nicely. Gigi-Finney drain remains on the right but surgery reports that they will be discontinuing this today. She will follow-up with surgery as an outpatient in 1 week. (2) Acute respiratory failure with hypoxia Is this a current diagnosis for this admission?: Yes Plan: 08/17/2019-the patient experienced an exacerbation of her heart rate (with underlying atrial fibrillation) by walking to the bathroom. This is approximately 10 feet. The patient felt very weak and in fact needed increased oxygen supplementation from her resting oxygen flow. This is likely acute on chronic with her chronic underlying severe morbid obesity contributing with morbid obesity hypoventilation syndrome as well as an underlying elevated brain natruretic peptide. She also exhibited lateral right middle lobe collapse and she has bilateral lower lobe atelectasis present on admission. As the morbid obesity is not going to improve and being prone to rapid ventricular response with her underlying atrial fibrillation I feel she would benefit from home oxygen therapy to start at 2 L/min by nasal cannula. Because of this acute worsening I have ordered a chest x-ray to evaluate for other potential causes such as heart failure. (3) Abdominal pain Qualifiers: Abdominal location: right upper quadrant Qualified Code(s): R10.11 - Right upper quadrant pain Is this a current diagnosis for this admission?: Yes Plan: 08/17/2019-the pain is on the right side. This is where the STUART drain is. She also complains of some discomfort towards the midline. I feel that this is all related to her cholecystitis and cholecystectomy. Continue pain management. (4) Fever Qualifiers: Fever type: unspecified Qualified Code(s): R50.9 - Fever, unspecified Is this a current diagnosis for this admission?: Yes Plan: 08/17/2019-resolved (5) Morbid obesity with BMI of 40.0-44.9, adult Is this a current diagnosis for this admission?: Yes Plan: 08/17/2019-BMI is 44.1. Due to her chronic back pain and persistent atrial fibrillation it is unlikely that she will be able to achieve an exercise level consistent with weight loss. The most effective method for this patient would be aggressive dietary management. These changes will not come quickly. Her morbid obesity is contributing to morbid obesity hypoventilation and unfortunat loren this will be a chronic issue. Her morbid obesity also can adversely affect healing from her surgery. Encourage diet for weight loss. (6) UTI (urinary tract infection) Qualifiers: Urinary tract infection type: acute cystitis Hematuria presence: with hematuria Qualified Code(s): N30.01 - Acute cystitis with hematuria Is this a current diagnosis for this admission?: Yes Plan: 08/17/2019-culture positive for E. coli. Antibiotic therapy completed. Infection resolved. (7) Bacteremia Is this a current diagnosis for this admission?: Yes Plan: 08/17/2019-E. coli present. Secondary to urinary tract infection. Most recent blood cultures remain no growth. Antibiotic therapy completed. Bacteremia resolved. (8) Dyspnea Qualifiers: Dyspnea type: acute respiratory distress Qualified Code(s): R06.03 - Acute respiratory distress Is this a current diagnosis for this admission?: Yes Plan: 08/17/2019-as noted above I believe her dyspnea is secondary to her morbid obesity as well as possible congestive heart failure secondary to her atrial fi brillation. Bilateral atelectasis on admission supports decreased inspiration likely secondary to her morbid obesity. She also experienced collapse of the lateral portion of the right middle lobe. Chest x-ray is pending today. Continue current management. (9) Atrial flutter with rapid ventricular response Is this a current diagnosis for this admission?: Yes Plan: 08/17/2019-the patient is already on sotalol and diltiazem. With walking approximately 10 feet her heart rate increased abruptly to approximately 150 bpm. She has had RVR with her underlying atrial fibrillation in the past. Cardiology did see her and ordered a single dose of intravenous diltiazem on top of her baseline medications. We will continue to monitor the patient on telemetry and we may need adjustment of her baseline medication based on her res ponse. Anticoagulation has been held for the surgery. As discussed with surgery I will resume her Xarelto this evening. (10) Morbid (severe) obesity with alveolar hypoventilation Is this a current diagnosis for this admission?: Yes Plan: 08/17/2019-with her BMI of 44 the patient is exhibiting increased shortness of breath. She does have chronic low back pain and atrial fibrillation with rapid ventricular response. The pain is chronic and the atrial fibrillation is chronic but she does have breakthrough episodes of rapid heart rate. Imaging revealed increased interstitial markings on the right plus dependent atelectasis bilaterally. This is likely influenced by her morbid obesity. Her brain natruretic peptide was elevated on admission but I do not have an echocardiogram to substantiate any heart failure at this time. As her morbid obesity is not going to change I feel she would benefit from chronic oxygen therapy. With very limited exertion she experienced hypoxia. Per nursing her requirement increased to 3 L to maintain saturation above 90% just walking approximately 10 feet from the bathroom to her bed. - Plan Summary Summary: Surgery has cleared patient for d/c with outpatient follow up. Aggressive pulmonary toilet. Oxygen requirement has increased. There could be a component of congestive heart failure due to the underlying arrhythmia. There is likely morbid obesity hypoventilation as well. As the oxygen requirements have increased I placed an order for home oxygen therapy. - Time Time Spent with patient: 25-34 minutes Medications reviewed and adjusted accordingly: Yes Anticipated discharge: Home with Homehealth Within: within 48 hours
--- NOTE | 2019-08-17 10:01 | PDOC CONSULTATION ---
Consultation Consult Date: 08/17/19 Attending physician:: CHIKIS MARIE Provider Consulted: BRIANDA MENDOZA Consult reason:: AFIB with RVR History of Present Illness Admission Date/PCP: 08/05/19 10:25 SAMMY URIBE NP Patient complains of: Shortness of breath and tachycardia History of Present Illness: KAMINI FERNANDEZ is a 69 year old female with a past medical history of hypertension, atrial fibrillation who recently came to the hospital with abdominal pain was found to have cholecystitis and had cholecystectomy performed. She had been doing well until this morning she started getting markedly short of breath and had a high heart rate. She was found to have atrial fibrillation with RVR. No chest pain. No orthopnea. No PND. No nausea or vomiting. She has not had her Cardizem CD this morning. She has not missed her Cardizem CD or sotalol while she was in the hospital. She is on a heparin drip at this time. Past Medical History Cardiac Medical History: Reports: Atrial Fibrillation, Hypertension Denies: Myocardial Infarction Pulmonary Medical History: Denies: Asthma Neurological Medical History: Denies: Seizures GI Medical History: Reports: Hiatal Hernia Denies: Hepatitis Hematology: Denies: Anemia, Sickle Cell Disease Past Surgical History Past Surgical History: Reports: Herniorrhaphy, Hysterectomy Denies: Amputation, Mastectomy, Pacemaker Social History Smoking Status: Never Smoker Electronic Cigarette use?: No Frequency of Alcohol Use: Occasional Hx Recreational Drug Use: No Hx Prescription Drug Abuse: No - Advance Directive Resuscitation Status: Full Code Family History Family History: Reviewed & Not Pertinent Parental Family History Reviewed: Yes Children Family History Reviewed: Yes Sibling(s) Family History Reviewed.: Yes Medication/Allergy Home Medications: Bimatoprost [Lumigan 0.01% Oph Soln 2.5 ml/Bottle] 1 drop OU BID 08/05/19 Butalb/Acetaminophen/Caffeine [Fioricet (50-325-40 mg) Tablet] 1 tab PO Q8HP PRN 08/05/19 Calcium Carbonate/Vitamin D3 [Os-Raffaele 500-Vit D3 200 Caplet] 1 tab PO DAILY 08/05/19 Cholecalciferol (Vitamin D3) [Vitamin D3 1000 Unit Tablet] 2,000 unit PO DAILY 08/05/19 Diltiazem HCl [Cardizem Cd 120 mg Capsule] 120 mg PO DAILY 08/05/19 Milk Thistle 150 mg PO DAILY 08/05/19 Omeprazole 20 mg PO QPM 08/05/19 Psyllium Husk (with Sugar) [Metamucil Packet] 3.4 gm PO DAILYP PRN 08/05/19 Rivaroxaban [Xarelto] 20 mg PO QPM 08/05/19 Sotalol HCl [Betapace] 120 mg PO BID 08/05/19 Tramadol HCl [Ultram 50 mg Tablet] 50 mg PO Q6HP PRN 08/05/19 Allergies/Adverse Reactions: Sulfa (Sulfonamide Antibiotics) Allergy (Verified 08/05/19 07:53) RASH Physical Exam Vital Signs: Temp Pulse Resp BP Pulse Ox 97.8 F 74 18 129/79 H 94 08/17/19 08:16 08/17/19 08:16 08/17/19 08:16 08/17/19 08:16 08/17/19 08:16 Pulse Oximeter Nocturnal Start: 08/11/19 17:32 Freq: RTQ4 Status: Complete Protocol: Document 08/12/19 04:34 DBE (Rec: 08/12/19 04:34 DBE [email or web address]) Nocturnal Pulse Oximetry Equipment Usage Equipment in Use Nocturnal Spo2 Charge Charge Now Oxygen Delivery Method (includes room Room Air air) O2 Sat by Pulse Oximetry (92-100) 92 Continuous SpO2 Machine # [id number] Intake & Output 08/16/19 08/17/19 08/18/19 06:59 06:59 06:59 Intake Total 1280 594 Output Total 600 1300 Balance 680 -706 Weight 130.2 kg 131.6 kg General appearance: PRESENT: mild distress Respiratory exam: PRESENT: crackles Cardiovascular exam: PRESENT: tachycardia Results Laboratory Results: 08/16/19 05:07 08/17/19 05:01 08/17/19 05:01 Sodium 139.4 Potassium 4.3 Chloride 100 Carbon Dioxide 27 Anion Gap 12 BUN 13 Creatinine 0.50 L Est GFR ( Amer) > 60 Glucose 72 L Calcium 9.9 Total Bilirubin 0.5 AST 49 H Alkaline Phosphatase 61 Total Protein 6.3 Albumin 3.3 L 08/11/19 06:59 Blood Blood Culture - Final NO GROWTH IN 5 DAYS 08/05/19 08/05/19 08/05/19 05:10 05:10 10:59 Creatine Kinase 39 CK-MB (CK-2) 0.73 Troponin I 0.051 0.112 NT-Pro-B Natriuret Pep 08/05/19 08/13/19 16:43 04:00 Creatine Kinase CK-MB (CK-2) 1.07 Troponin I 0.062 NT-Pro-B Natriuret Pep 1320 H Impressions: Abdomen MRI 08/05/19 00:00 IMPRESSION: 1. The common bile duct is dilated, measuring up to 1.1 cm in caliber. There is an elongated filling defect in the distal common bile duct within the pancreatic head concerning for one or more calculi, measuring 1.6 cm in length and 0.5 cm in caliber (series 6, image 51). 2. Cholelithiasis with mild distention of the gallbladder. Abdomen Ultrasound 08/05/19 07:56 IMPRESSION: Limited exam secondary to body habitus and bowel gas. 1. Cholelithiasis with dilated CBD measuring up to 11 mm. No definite intrahepatic ductal dilation. Findings suggestive of choledocholithiasis. Recommend correlation with LFTs for evidence of biliary obstruction. MRCP or ERCP could be considered for further confirmation. 2. Hepatic steatosis. Catheter Placement 08/08/19 00:00 IMPRESSION: IMAGE(S) OBTAINED DURING PROCEDURE. Fluoroscopy 08/08/19 00:00 IMPRESSION: IMAGE(S) OBTAINED DURING PROCEDURE. Chest/Abdomen CTA 08/09/19 00:00 IMPRESSION: 1. No CT evidence for pulmonary embolism. 2. Mild diffuse interstitial infiltrate, likely cardiogenic pulmonary edema. Cannot exclude an atypical interstitial pneumonia. 3. Cholelithiasis Abdomen/Pelvis CT 08/13/19 00:00 IMPRESSION: 1. Postoperative findings as detailed above. 2. Bilateral caliceal calculi that measure up to 3 mm. There is no hydrone phrosis. 3. Colonic diverticulosis without other associated ancillary findings to indicate an acute diverticulitis. Chest CT 08/13/19 00:00 IMPRESSION: Collapse of the lateral segment of the middle lobe - new from 08/09/2019. Other findings including the subpleural and band-like opacities/areas of consolidation in the lingula and lower lobes are unchanged. Chest X-Ray 08/13/19 00:00 IMPRESSION: Low inspiratory lung volume and new patchy opacities in the left base that could represent atelectasis. Clinical correlation to exclude a pneumonia is recommended. Assessment & Plan - Diagnosis (1) Atrial fibrillation with rapid ventricular response Is this a current diagnosis for this admission?: Yes Plan: She will be given her morning dose of sotalol and Cardizem. We can give her 20 mg of Cardizem IV.
[2019-08-17] MEDS ORDERED: DILTIAZEM HCL INJ 25 MG/5 ML VIAL IV ONE (11:00)
--- NOTE | 2019-08-17 11:03 | PDOC PROGRESS REPORT ---
Subjective Progress Note for:: 08/17/19 Subjective:: Patient comfortable, tolerating p.o. well, bowel function returned with a small normal looking stools Reason For Visit: ABDOMINAL PAIN,CHRONIC AFIB,CHOLEDOCHOLITHIASIS Physical Exam Vital Signs: Temp Pulse Resp BP Pulse Ox 97.8 F 74 18 129/79 H 94 08/17/19 08:16 08/17/19 08:16 08/17/19 08:16 08/17/19 08:16 08/17/19 08:16 Pulse Oximeter Nocturnal Start: 08/11/19 17:32 Freq: RTQ4 Status: Complete Protocol: Document 08/12/19 04:34 DBE (Rec: 08/12/19 04:34 DBE [email or web address]) Nocturnal Pulse Oximetry Equipment Usage Equipment in Use Nocturnal Spo2 Charge Charge Now Oxygen Delivery Method (includes room Room Air air) O2 Sat by Pulse Oximetry (92-100) 92 Continuous SpO2 Machine # [id number] Intake & Output 08/16/19 08/17/19 08/18/19 06:59 06:59 06:59 Intake Total 1280 594 Output Total 600 1300 5 Balance 680 -706 -5 Weight 130.2 kg 131.6 kg General appearance: PRESENT: mild distress, other - Patient appears to be slightly short of breath Respiratory exam: PRESENT: clear to auscultation aroldo Cardiovascular exam: PRESENT: RRR GI/Abdominal exam: PRESENT: normal bowel sounds, soft, other - Large for obesity, midline laparotomy incision clean, dry, and intact; right lateral abdominal drain filled with scant amount of serosanguineous fluid, abdomen soft, not distended, not tender Results Laboratory Results: 08/16/19 05:07 08/17/19 05:01 08/17/19 05:01 Sodium 139.4 Potassium 4.3 Chloride 100 Carbon Dioxide 27 Anion Gap 12 BUN 13 Creatinine 0.50 L Est GFR ( Amer) > 60 Glucose 72 L Calcium 9.9 Total Bilirubin 0.5 AST 49 H Alkaline Phosphatase 61 Total Protein 6.3 Albumin 3.3 L 08/11/19 06:59 Blood Blood Culture - Final NO GROWTH IN 5 DAYS 08/05/19 08/05/19 08/05/19 05:10 05:10 10:59 Creatine Kinase 39 CK-MB (CK-2) 0.73 Troponin I 0.051 0.112 NT-Pro-B Natriuret Pep 08/05/19 08/13/19 16:43 04:00 Creatine Kinase CK-MB (CK-2) 1.07 Troponin I 0.062 NT-Pro-B Natriuret Pep 1320 H Impressions: Abdomen MRI 08/05/19 00:00 IMPRESSION: 1. The common bile duct is dilated, measuring up to 1.1 cm in caliber. There is an elongated filling defect in the distal common bile duct within the pancreatic head concerning for one or more calculi, measuring 1.6 cm in length and 0.5 cm in caliber (series 6, image 51). 2. Cholelithiasis with mild distention of the gallbladder. Abdomen Ultrasound 08/05/19 07:56 IMPRESSION: Limited exam secondary to body habitus and bowel gas. 1. Cholelithiasis with dilated CBD measuring up to 11 mm. No definite intrahepatic ductal dilation. Findings suggestive of choledocholithiasis. Recommend correlation with LFTs for evidence of biliary obstruction. MRCP or ERCP could be considered for further confirmation. 2. Hepatic steatosis. Catheter Placement 08/08/19 00:00 IMPRESSION: IMAGE(S) OBTAINED DURING PROCEDURE. Fluoroscopy 08/08/19 00:00 IMPRESSION: IMAGE(S) OBTAINED DURING PROCEDURE. Chest/Abdomen CTA 08/09/19 00:00 IMPRESSION: 1. No CT evidence for pulmonary embolism. 2. Mild diffuse interstitial infiltrate, likely cardiogenic pulmonary edema. Cannot exclude an atypical interstitial pneumonia. 3. Cholelithiasis Abdomen/Pelvis CT 08/13/19 00:00 IMPRESSION: 1. Postoperative findings as detailed above. 2. Bilateral caliceal calculi that measure up to 3 mm. There is no hydronephrosis. 3. Colonic diverticulosis without other associated ancillary findings to indicate an acute diverticulitis. Chest CT 08/13/19 00:00 IMPRESSION: Collapse of the lateral segment of the middle lobe - new from 08/09/2019. Other findings including the subpleural and band-like opacities/areas of consolidation in the lingula and lower lobes are unchanged. Chest X-Ray 08/13/19 00:00 IMPRESSION: Low inspiratory lung volume and new patchy opacities in the left base that could represent atelectasis. Clinical correlation to exclude a pneumonia is recommended. Assessment & Plan - Diagnosis (1) Status post cholecystectomy Is this a current diagnosis for this admission?: Yes (2) status post enterotomy repair Is this a current diagnosis for this admission?: Yes (3) Calculus of common bile duct with acute cholecystitis Is this a current diagnosis for this admission?: Yes (4) Choledocholithiasis Is this a current diagnosis for this admission?: Yes - Time Time Spent with patient: 35 or more minutes - Plan Summary Plan Summary: Morbidly obese 60-year-old female postop day #5 following a laparoscopic cholecystectomy with open repair of small bowel enterotomy via mini laparotomy Patient is afebrile The patient has had one episode of atrial fibrillation with RVR this morning: Hospitalist service is planning to resume Eliquis Good appetite, diet tolerated Abdomen soft, not distended, not tender, midline incision clean, dry, and intact Drain right upper quadrant of the abdomen filled with scant amount of serosanguineous fluid White blood cell count 14,000, most likely due to the administration of steroids Plan: No acute general surgery issues identified Patient can be discharged to home as per the hospitalist service Remove STUART drain at bedside today OK tp resume Eliquis tonight as per the hospitalist service Follow-up with Dr. Hope in the office for staple removal 1 week after disc harge Shower or sponge bath only until the sabina are in place, then patient can bathe No straining or heavy lifting more than 10 pounds for 3 months, then increase lifting as tolerated We will sign off, please call us with questions
[2019-08-17] MEDS: LEVALBUTEROL HCL NEB 1.25 MG/3 ML AMPUL NEB PRN (12:20)
[2019-08-17] MEDS ORDERED: MORPHINE SULFATE 10 MG/ML INJ IV ONE (12:47)
[2019-08-17] MEDS ORDERED: HEPARIN SOD (PORCINE) 5,000 UNIT/ML 1 ML VIAL SUBCUT ONE (13:00)
--- NOTE | 2019-08-17 13:26 | RADIOLOGY REPORT (SQ) ---
EXAM DESCRIPTION: CHEST SINGLE VIEW COMPLETED DATE/TIME: 08/17/2019 1:13 pm REASON FOR STUDY: Increased shortness of breath COMPARISON: 08/13/2019 EXAM PARAMETERS: NUMBER OF VIEWS: One view. TECHNIQUE: Single frontal radiographic view of the chest acquired. RADIATION DOSE: NA LIMITATIONS: Low lung volumes. FINDINGS: LUNGS AND PLEURA: No opacities, masses or pneumothorax. No pleural effusion. MEDIASTINUM AND HILAR STRUCTURES: No masses. Contour normal. HEART AND VASCULAR STRUCTURES: Heart remains enlarged. No failure. BONES: No acute findings. HARDWARE: None in the chest. OTHER: No other significant finding. IMPRESSION: Stable chest with low lung volumes. No acute findings. TECHNICAL DOCUMENTATION: JOB ID: [id number] [employer]- All Rights Reserved Reading location - IP/workstation name: [email or web address]
[2019-08-17] MEDS: RIVAROXABAN 10 MG TABLET PO SCH (17:49)
--- NOTE | 2019-08-17 20:17 | EKG REPORT ---
SEVERITY:- ABNORMAL ECG - ATRIAL FIBRILLATION, V-RATE 84-165 : Confirmed by: Elodia Ferreira MD 17-Aug-2019 20:16:47
[2019-08-17] MEDS: ACETAMINOPHEN 325 MG TABLET PO PRN (20:33)
[2019-08-18] MEDS: IPRATROPIUM/ALBUTEROL 0.5-2.5 MG/3 ML AMPUL NEB SCH ×2 (08:08→16:10)
[2019-08-18] MEDS: SOTALOL HCL 80 MG TABLET PO SCH ×2 (09:47→23:05)
[2019-08-18] MEDS: GUAIFENESIN 600 MG TABLET.SA PO SCH ×2 (09:47→23:05)
[2019-08-18] MEDS: PREDNISONE 20 MG TABLET PO SCH (09:47)
[2019-08-18] MEDS: POTASSIUM CHLORIDE 10 MEQ TABLET.ER PO SCH (09:47)
[2019-08-18] MEDS: FAMOTIDINE 20 MG TABLET PO SCH ×2 (09:47→23:04)
[2019-08-18] MEDS: DOCUSATE SODIUM 100 MG CAPSULE PO SCH (09:48)
[2019-08-18] MEDS: DILTIAZEM HCL 180 MG CAPSULE.CR PO SCH ×2 (09:48→23:03)
[2019-08-18] MEDS: LATANOPROST 0.005% OPH SOLN 2.5 ML OU SCH ×2 (09:53→23:02)
[2019-08-18] MEDS: TRAMADOL HCL 50 MG TABLET PO PRN ×2 (09:53→19:02)
--- NOTE | 2019-08-18 13:12 | PDOC PROGRESS REPORT ---
Subjective Progress Note for:: 08/18/19 Subjective:: 08/18/2019-sitting at the edge of the bed. Company visiting. Breathing appears comfortable. She remains on nasal cannula. Complains of right posterior pleuritic type pain. Reason For Visit: ABDOMINAL PAIN,CHRONIC AFIB,CHOLEDOCHOLITHIASIS Physical Exam Vital Signs: Temp Pulse Resp BP Pulse Ox 97.3 F 70 17 138/67 H 91 L 08/18/19 08:42 08/18/19 08:42 08/18/19 08:42 08/18/19 08:42 08/18/19 08:42 Pulse Oximeter Nocturnal Start: 08/11/19 17:32 Freq: RTQ4 Status: Complete Protocol: Document 08/12/19 04:34 DBE (Rec: 08/12/19 04:34 DBE [id number]) Nocturnal Pulse Oximetry Equipment Usage Equipment in Use Nocturnal Spo2 Charge Charge Now Oxygen Delivery Method (includes room Room Air air) O2 Sat by Pulse Oximetry (92-100) 92 Continuous SpO2 Machine # [id number] Intake & Output 08/17/19 08/18/19 08/19/19 06:59 06:59 06:59 Intake Total 594 930 Output Total 1300 5 Balance -706 925 Weight 131.6 kg 132.2 kg General appearance: PRESENT: no acute distress, cooperative, morbidly obese Head exam: PRESENT: atraumatic, normocephalic Ear exam: PRESENT: normal external ear exam. ABSENT: bleeding, drainage Respiratory exam: PRESENT: decreased breath sounds - Decreased breath sounds at both bases. Possibly due to body habitus., symmetrical, unlabored. ABSENT: accessory muscle use, rales, rhonchi, tachypnea, wheezes Cardiovascular exam: PRESENT: irregular rhythm GI/Abdominal exam: PRESENT: normal bowel sounds, soft, other - Protuberant ab domen. ABSENT: tenderness Rectal exam: PRESENT: deferred Neurological exam: PRESENT: alert, awake, oriented to person, oriented to place, oriented to time, oriented to situation, CN II-XII grossly intact Psychiatric exam: PRESENT: appropriate affect. ABSENT: agitated, anxious Results Laboratory Results: 08/16/19 05:07 08/17/19 05:01 08/05/19 08/05/19 08/05/19 05:10 05:10 10:59 Creatine Kinase 39 CK-MB (CK-2) 0.73 Troponin I 0.051 0.112 NT-Pro-B Natriuret Pep 08/05/19 08/13/19 16:43 04:00 Creatine Kinase CK-MB (CK-2) 1.07 Troponin I 0.062 NT-Pro-B Natriuret Pep 1320 H Impressions: Abdomen MRI 08/05/19 00:00 IMPRESSION: 1. The common bile duct is dilated, measuring up to 1.1 cm in caliber. There is an elongated filling defect in the distal common bile duct within the pancreatic head concerning for one or more calculi, measuring 1.6 cm in length and 0.5 cm in caliber (series 6, image 51). 2. Cholelithiasis with mild distention of the gallbladder. Abdomen Ultrasound 08/05/19 07:56 IMPRESSION: Limited exam secondary to body habitus and bowel gas. 1. Cholelithiasis with dilated CBD measuring up to 11 mm. No definite intrahepatic ductal dilation. Findings suggestive of choledocholithiasis. Recommend correlation with LFTs for evidence of biliary obstruction. MRCP or ERCP could be considered for further confirmation. 2. Hepatic steatosis. Catheter Placement 08/08/19 00:00 IMPRESSION: IMAGE(S) OBTAINED DURING PROCEDURE. Fluoroscopy 08/08/19 00:00 IMPRESSION: IMAGE(S) OBTAINED DURING PROCEDURE. Chest/Abdomen CTA 08/09/19 00:00 IMPRESSION: 1. No CT evidence for pulmonary embolism. 2. Mild diffuse interstitial infiltrate, likely cardiogenic pulmonary edema. Cannot exclude an atypical interstitial pneumonia. 3. Cholelithiasis Abdomen/Pelvis CT 08/13/19 00:00 IMPRESSION: 1. Postoperative findings as detailed above. 2. Bilateral caliceal calculi that measure up to 3 mm. There is no hydronephrosis. 3. Colonic diverticulosis without other associated ancillary findings to indicate an acute diverticulitis. Chest CT 08/13/19 00:00 IMPRESSION: Collapse of the lateral segment of the middle lobe - new from 08/09/2019. Other findings including the subpleural and band-like opacities/are as of consolidation in the lingula and lower lobes are unchanged. Chest X-Ray 08/17/19 00:00 IMPRESSION: Stable chest with low lung volumes. No acute findings. Assessment and Plan - Diagnosis (1) Calculus of common bile duct with acute cholecystitis Is this a current diagnosis for this admission?: Yes Plan: 08/17/2019-the patient underwent ERCP with subsequent open cholecystectomy and small bowel repair. Incisions are healing nicely. Gigi-Finney drain remains on the right but surgery reports that they will be discontinuing this today. She will follow-up with surgery as an outpatient in 1 week. 08/18/2019-patient reports occasional small amount of discomfort which should be expected after surgery. (2) Acute respiratory failure with hypoxia Is this a current diagnosis for this admission?: Yes Plan: 08/17/2019-the patient experienced an exacerbation of her heart rate (with underlying atrial fibrillation) by walking to the bathroom. This is approximately 10 feet. The patient felt very weak and in fact needed increased oxygen supplementation from her resting oxygen flow. This is likely acute on chronic with her chronic underlying severe morbid obesity contributing with morbid obesity hypoventilation syndrome as well as an underlying elevated brain natruretic peptide. She also exhibited lateral right middle lobe collapse and she has bilateral lower lobe atelectasis present on admission. As the morbid obesity is not going to improve and being prone to rapid ventricular response with her underlying atrial fibrillation I feel she would benefit from home oxyge n therapy to start at 2 L/min by nasal cannula. Because of this acute worsening I have ordered a chest x-ray to evaluate for other potential causes such as heart failure. 08/18/2019-in reviewing all of her records to try and ascertain the exact etiology or etiologies for her respiratory failure and noticed there was no echocardiogram and no PFTs. I have ordered both to see if there is underlying obstructive disease and the possibility of heart failure and pulmonary hypertension. I have initiated low-dose furosemide as well to see if this improves her respiratory status. Cardiology is already seeing the patient and I may have pulmonology see her as well. (3) Abdominal pain Qualifiers: Abdominal location: right upper quadrant Qualified Code(s): R10.11 - Right upper quadrant pain Is this a current diagnosis for this admission?: Yes Plan: 08/17/2019-the pain is on the right side. This is where the STUART drain is. She also complains of some discomfort towards the midline. I feel that this is all related to her cholecystitis and cholecystectomy. Continue pain management. 08/18/2019-as noted above slight discomfort. The STUART drain has been removed. (4) Fever Qualifiers: Fever type: unspecified Qualified Code(s): R50.9 - Fever, unspecified Is this a current diagnosis for this admission?: Yes Plan: 08/17/2019-resolved 08/18/2019-patient remains afebrile. Continue to monitor vital signs. (5) Morbid obesity with BMI of 40.0-44.9, adult Is this a current diagnosis for this admission?: Yes Plan: 08/17/2019-BMI is 44.1. Due to her chronic back pain and persistent atrial fibrillation it is unlikely that she will be able to achieve an exercise level consistent with weight loss. The most effective method for this patient would be aggressive dietary management. These changes will not come quickly. Her morbid obesity is contributing to morbid obesity hypoventilation and unfortunately this will be a chronic issue. Her morbid obesity also can adversely affect healing from her surgery. Encourage diet for weight loss. (6) UTI (urinary tract infection) Qualifiers: Urinary tract infection type: acute cystitis Hematuria presence: with hematuria Qualified Code(s): N30.01 - Acute cystitis with hematuria Is this a current diagnosis for this admission?: Yes Plan: 08/17/2019-culture positive for E. coli. Antibiotic therapy completed. Infection resolved. (7) Bacteremia Is this a current diagnosis for this admission?: Yes Plan: 08/17/2019-E. coli present. Secondary to urinary tract infection. Most recent blood cultures remain no growth. Antibiotic therapy completed. Bacteremia resolved. (8) Dyspnea Qualifiers: Dyspnea type: acute respiratory distress Qualified Code(s): R06.03 - Acute respiratory distress Is this a current diagnosis for this admission?: Yes Plan: 08/17/2019-as noted above I believe her dyspnea is secondary to her morbid obesity as well as possible congestive heart failure secondary to her atrial fibrillation. Bilateral atelectasis on admission supports decreased inspiration likely secondary to her morbid obesity. She also experienced collapse of the lateral portion of the right middle lobe. Chest x-ray is pending today. Continue current management. 08/18/2019-as noted above there is no obvious source of her dyspnea except the morbid obesity hypoventilation and atrial fibrillation. Atrial fibrillation itself typically does not cause shortness of breath but as a sequela the heart failure associated with atrial fibrillation can be an issue. Because there is no echocardiogram in her records I have ordered 1 to assess heart function. In addition there are no PFTs noted in her records and so I have ordered PFTs pre- and post albuterol to see if there is an obstructive component. She currently requires 2 L of oxygen. (9) Atrial flutter with rapid ventricular response Is this a current diagnosis for this admission?: Yes Plan: 08/17/2019-the patient is already on sotalol and diltiazem. With walking approximately 10 feet her heart rate increased abruptly to approximately 150 bpm. She has had RVR with her underlying atrial fibrillation in the past. Cardiology did see her and ordered a single dose of intravenous diltiazem on top of her baseline medications. We will continue to monitor the patient on telemetry and we may need adjustment of her baseline medication based on her response. Anticoagulation has been held for the surgery. As discussed with surgery I will resume her Xarelto this evening. 08/18/2019-at rest she continues to have good rate control. With exertion her rate goes up. It has not gone up as high as yesterday. I will discuss with cardiology. The patient may need the addition of another medication or perhaps a dose adjustment with her current medications. (10) Morbid (severe) obesity with alveolar hypoventilation Is this a current diagnosis for this admission?: Yes Plan: 08/17/2019-with her BMI of 44 the patient is exhibiting increased shortness of breath. She does have chronic low back pain and atrial fibrillation with rapid ventricular response. The pain is chronic and the atrial fibrillation is chronic but she does have breakthrough episodes of rapid heart rate. Imaging revealed increased interstitial markings on the right plus dependent atelectasis bilaterally. This is likely influenced by her morbid obesity. Her brain natruretic peptide was elevated on admission but I do not have an echocardiogram to substantiate any heart failure at this time. As her morbid obesity is not going to change I feel she would benefit from chronic oxygen therapy. With very limited exertion she experienced hypoxia. Per nursing her requirement increased to 3 L to maintain saturation above 90% just walking approximately 10 feet from the bathroom to her bed. 08/18/2019-clearly her morbid obesity is contributing to her shortness of breath. After lengthy discussion today she reports that when she is home she can only move a short distance before needing to stop and rest. She states that she has staged different areas of the home so that she has support at certain distances to allow for her to stop and rest. As noted above I am going to investigate further for other possibilities contributing to her shortness of breath and hypoxia. - Plan Summary Summary: Surgery has cleared patient for d/c with outpatient follow up. Aggressive pulmonary toilet. Oxygen requirement has increased. There could be a component of congestive heart failure due to the underlying arrhythmia. There is likely morbid obesity hypoventilation as well. As the oxygen requirements have increased I placed an order for home oxygen therapy. - Time Time Spent with patient: 25-34 minutes Medications reviewed and adjusted accordingly: Yes Anticipated discharge: Home with Homehealth
[2019-08-18] MEDS: ACETAMINOPHEN 325 MG TABLET PO PRN ×2 (15:29→23:04)
[2019-08-18] MEDS ORDERED: ALBUTEROL SULFATE 0.083% NEB 2.5 MG/3 ML AMPUL NEB PRN (15:33)
[2019-08-18] MEDS ORDERED: FUROSEMIDE INJ/PF 20 MG/2 ML SDV IV ONE (15:39)
[2019-08-18] MEDS: BUDESONIDE NEB 0.25 MG/2 ML AMPUL NEB SCH (16:11)
[2019-08-18] MEDS: RIVAROXABAN 10 MG TABLET PO SCH (16:18)
[2019-08-19] MEDS: BUDESONIDE NEB 0.25 MG/2 ML AMPUL NEB SCH ×3 (00:43→15:57)
[2019-08-19] MEDS: IPRATROPIUM/ALBUTEROL 0.5-2.5 MG/3 ML AMPUL NEB SCH ×3 (00:43→15:57)
[2019-08-19 06:31] LABS: ANION GAP 8 (5-19); BLOOD UREA NITROGEN 11 mg/dL (7-20); CALCIUM 9.7 mg/dL (8.4-10.2); CARBON DIOXIDE 28 mmol/L (22-30); CHLORIDE 104 mmol/L (98-107); GLUCOSE 100 mg/dL (75-110); POTASSIUM 3.9 mmol/L (3.6-5.0)
[2019-08-19] MEDS: GUAIFENESIN 600 MG TABLET.SA PO SCH ×2 (10:57→22:19)
[2019-08-19] MEDS: LATANOPROST 0.005% OPH SOLN 2.5 ML OU SCH ×2 (10:57→22:21)
[2019-08-19] MEDS: FAMOTIDINE 20 MG TABLET PO SCH ×2 (10:57→22:21)
[2019-08-19] MEDS: DILTIAZEM HCL 180 MG CAPSULE.CR PO SCH ×2 (10:57→22:20)
[2019-08-19] MEDS: PREDNISONE 20 MG TABLET PO SCH (10:57)
[2019-08-19] MEDS: POTASSIUM CHLORIDE 10 MEQ TABLET.ER PO SCH (10:57)
[2019-08-19] MEDS: DOCUSATE SODIUM 100 MG CAPSULE PO SCH (10:58)
[2019-08-19] MEDS: FUROSEMIDE INJ/PF 20 MG/2 ML SDV IV SCH (10:58)
[2019-08-19] MEDS: SOTALOL HCL 80 MG TABLET PO SCH ×2 (10:59→22:19)
[2019-08-19] MEDS: TRAMADOL HCL 50 MG TABLET PO PRN (11:05)
--- NOTE | 2019-08-19 12:18 | PDOC PROGRESS REPORT ---
Subjective Progress Note for:: 08/19/19 Subjective:: Upon entering the room the first time the patient was having her echocardiogram. She had significant complaints about pressure from the ultrasound probe. Awaiting the echocardiogram interpretation. Returning to the room she still complains of discomfort both on the left ribs as well as the right side of her abdomen. Reason For Visit: ABDOMINAL PAIN,CHRONIC AFIB,CHOLEDOCHOLITHIASIS Physical Exam Vital Signs: Temp Pulse Resp BP Pulse Ox 97.5 F 94 16 102/66 91 L 08/19/19 08:00 08/19/19 09:07 08/19/19 09:07 08/19/19 08:00 08/19/19 09:07 Pulse Oximeter Nocturnal Start: 08/11/19 17:32 Freq: RTQ4 Status: Complete Protocol: Document 08/12/19 04:34 DBE (Rec: 08/12/19 04:34 DBE [id number]) Nocturnal Pulse Oximetry Equipment Usage Equipment in Use Nocturnal Spo2 Charge Charge Now Oxygen Delivery Method (includes room Room Air air) O2 Sat by Pulse Oximetry (92-100) 92 Continuous SpO2 Machine # [id number] Intake & Output 08/18/19 08/19/19 08/20/19 06:59 06:59 06:59 Intake Total 930 1280 Output Total 5 Balance 925 1280 Weight 132.2 kg 138.8 kg General appearance: PRESENT: cooperative, morbidly obese, other - Moderate distress Head exam: PRESENT: atraumatic, normocephalic Respiratory exam: PRESENT: chest wall tenderness - Left side, clear to auscultation aroldo - Anteriorly. ABSENT: rales, rhonchi Cardiovascular exam: PRESENT: irregular rhythm GI/Abdominal exam: PRESENT: diminished bowel sounds, soft, tenderness - Midline to right side Rectal exam: PRESENT: deferred Gentrourinary exam: ABSENT: indwelling catheter Neurological exam: PRESENT: alert, awake, oriented to person, oriented to place, oriented to time, oriented to situation, CN II-XII grossly intact Psychiatric exam: PRESENT: flat affect. ABSENT: agitated, anxious Skin exam: PRESENT: dry, warm, other - Incisions appear to be healing well.. ABSENT: erythema Results Laboratory Results: 08/16/19 05:07 08/19/19 05:57 08/19/19 05:57 Sodium 140.4 Potassium 3.9 Chloride 104 Carbon Dioxide 28 Anion Gap 8 BUN 11 Creatinine 0.51 L Est GFR ( Amer) > 60 Glucose 100 Calcium 9.7 08/05/19 08/05/19 08/05/19 05:10 05:10 10:59 Creatine Kinase 39 CK-MB (CK-2) 0.73 Troponin I 0.051 0.112 NT-Pro-B Natriuret Pep 08/05/19 08/13/19 16:43 04:00 Creatine Kinase CK-MB (CK-2) 1.07 Troponin I 0.062 NT-Pro-B Natriuret Pep 1320 H Impressions: Abdomen MRI 08/05/19 00:00 IMPRESSION: 1. The common bile duct is dilated, measuring up to 1.1 cm in caliber. There is an elongated filling defect in the distal common bile duct within the pancreatic head concerning for one or more calculi, measuring 1.6 cm in length and 0.5 cm in caliber (series 6, image 51). 2. Cholelithiasis with mild distention of the gallbladder. Abdomen Ultrasound 08/05/19 07:56 IMPRESSION: Limited exam secondary to body habitus and bowel gas. 1. Cholelithiasis with dilated CBD measuring up to 11 mm. No definite intrahepatic ductal dilation. Findings suggestive of choledocholithiasis. Recommend correlation with LFTs for evidence of biliary obstruction. MRCP or ERCP could be considered for further confirmation. 2. Hepatic steatosis. Catheter Placement 08/08/19 00:00 IMPRESSION: IMAGE(S) OBTAINED DURING PROCEDURE. Fluoroscopy 08/08/19 00:00 IMPRESSION: IMAGE(S) OBTAINED DURING PROCEDURE. Chest/Abdomen CTA 08/09/19 00:00 IMPRESSION: 1. No CT evidence for pulmonary embolism. 2. Mild diffuse interstitial infiltrate, likely cardiogenic pulmonary edema. Cannot exclude an atypical interstitial pneumonia. 3. Cholelithiasis Abdomen/Pelvis CT 08/13/19 00:00 IMPRESSION: 1. Postoperative findings as detailed above. 2. Bilateral caliceal calculi that measure up to 3 mm. There is no hydronephrosis. 3. Colonic diverticulosis without other associated ancillary findings to indicate an acute diverticulitis. Chest CT 08/13/19 00:00 IMPRESSION: Collapse of the lateral segment of the middle lobe - new from 08/09/2019. Other findings including the subpleural and band-like opacities/areas of consolidation in the lingula and lower lobes are unchanged. Chest X-Ray 08/17/19 00:00 IMPRESSION: Stable chest with low lung volumes. No acute findings. Assessment and Plan - Diagnosis (1) Calculus of common bile duct with acute cholecystitis Is this a current diagnosis for this admission?: Yes Plan: 08/17/2019-the patient underwent ERCP with subsequent open cholecystectomy and small bowel repair. Incisions are healing nicely. Gigi-Finney drain remains on the right but surgery reports that they will be discontinuing this today. She will follow-up with surgery as an outpatient in 1 week. 08/18/2019-patient reports occasional small amount of discomfort which should be expected after surgery. 08/19/2019-increased discomfort today. Will monitor. If pain persists will obtain CT scan of the abdomen. (2) Acute respiratory failure with hypoxia Is this a current diagnosis for this admission?: Yes Plan: 08/17/2019-the patient experienced an exacerbation of her heart rate (with underlying atrial fibrillation) by walking to the bathroom. This is approximately 10 feet. The patient felt very weak and in fact needed increased oxygen supplementation from her resting oxygen flow. This is likely acute on chronic with her chronic underlying severe morbid obesity contributing with morbid obesity hypoventilation syndrome as well as an underlying elevated brain natruretic peptide. She also exhibited lateral right middle lobe collapse and she has bilateral lower lobe atelectasis present on admission. As the morbid obesity is not going to improve and being prone to rapid ventricular response with her underlying atrial fibrillation I feel she would benefit from home oxygen therapy to start at 2 L/min by nasal cannula. Because of this acute worsening I have ordered a chest x-ray to evaluate for other potential causes such as heart failure. 08/18/2019-in reviewing all of her records to try and ascertain the exact etiology or etiologies for her respiratory failure and noticed there was no ech ocardiogram and no PFTs. I have ordered both to see if there is underlying obstructive disease and the possibility of heart failure and pulmonary hypertension. I have initiated low-dose furosemide as well to see if this improves her respiratory status. Cardiology is already seeing the patient and I may have pulmonology see her as well. 08/19/2019-patient continues to require oxygen supplementation. I have ordered an echocardiogram as well as pulmonary function testing to assess for underlying occult heart failure or COPD. (3) Abdominal pain Qualifiers: Abdominal location: right upper quadrant Qualified Code(s): R10.11 - Right upper quadrant pain Is this a current diagnosis for this admission?: Yes Plan: 08/17/2019-the pain is on the right side. This is where the STUART drain is. She also complains of some discomfort towards the midline. I feel that this is all related to her cholecystitis and cholecystectomy. Continue pain management. 08/18/2019-as noted above slight discomfort. The STUART drain has been removed. 08/19/2019-no discharge or drainage noted from the incisions. The patient does have positive bowel sounds. If discomfort persists I will order imaging of the abdomen. (4) Fever Qualifiers: Fever type: unspecified Qualified Code(s): R50.9 - Fever, unspecified Is this a current diagnosis for this admission?: Yes Plan: 08/17/2019-resolved 08/18/2019-patient remains afebrile. Continue to monitor vital signs. (5) Morbid obesity with BMI of 40.0-44.9, adult Is this a current diagnosis for this admission?: Yes Plan: 08/17/2019-BMI is 44.1. Due to her chronic back pain and persistent atrial fibrillation it is unlikely that she will be able to achieve an exercise level consistent with weight loss. The most effective method for this patient would be aggressive dietary management. These changes will not come quickly. Her morbid obesity is contributing to morbid obesity hypoventilation and unfortunately this will be a chronic issue. Her morbid obesity also can adversely affect healing from her surgery. Encourage diet for weight loss. (6) UTI (urinary tract infection) Qualifiers: Urinary tract infection type: acute cystitis Hematuria presence: with hematuria Qualified Code(s): N30.01 - Acute cystitis with hematuria Is this a current diagnosis for this admission?: Yes Plan: 08/17/2019-culture positive for E. coli. Antibiotic therapy completed. Infection resolved. (7) Bacteremia Is this a current diagnosis for this admission?: Yes Plan: 08/17/2019-E. coli present. Secondary to urinary tract infection. Most recent blood cultures remain no growth. Antibiotic therapy completed. Bacteremia resolved. (8) Dyspnea Qualifiers: Dyspnea type: acute respiratory distress Qualified Code(s): R06.03 - Acute respiratory distress Is this a current diagnosis for this admission?: Yes Plan: 08/17/2019-as noted above I believe her dyspnea is secondary to her morbid obesity as well as possible congestive heart failure secondary to her atrial fibrillation. Bilateral atelectasis on admission supports decreased inspiration likely secondary to her morbid obesity. She also experienced collapse of the lateral portion of the right middle lobe. Chest x-ray is pending today. Contin ue current management. 08/18/2019-as noted above there is no obvious source of her dyspnea except the morbid obesity hypoventilation and atrial fibrillation. Atrial fibrillation itself typically does not cause shortness of breath but as a sequela the heart failure associated with atrial fibrillation can be an issue. Because there is no echocardiogram in her records I have ordered 1 to assess heart function. In addition there are no PFTs noted in her records and so I have ordered PFTs pre- and post albuterol to see if there is an obstructive component. She currently requires 2 L of oxygen. 08/19/2019-as noted above still requiring oxygen supplementation. At complete rest there does not appear to be any difficulty breathing but with minimal exertion the patient does experience increased shortness of breath. (9) Atrial flutter with rapid ventricular response Is this a current diagnosis for this admission?: Yes Plan: 08/17/2019-the patient is already on sotalol and diltiazem. With walking approximately 10 feet her heart rate increased abruptly to approximately 150 bpm. She has had RVR with her underlying atrial fibrillation in the past. Cardiology did see her and ordered a single dose of intravenous diltiazem on top of her baseline medications. We will continue to monitor the patient on telemetry and we may need adjustment of her baseline medication based on her response. Anticoagulation has been held for the surgery. As discussed with surgery I will resume her Xarelto this evening. 08/18/2019-at rest she continues to have good rate control. With exertion her rate goes up. It has not gone up as high as yesterday. I will discuss with cardiology. The patient may need the addition of another medication or perhaps a dose adjustment with her current medications. 08/19/2019-still with slight elevation in heart rate during exertion. Continue current medications. Cardiology is following the patient. (10) Morbid (severe) obesity with alveolar hypoventilation Is this a current diagnosis for this admission?: Yes Plan: 08/17/2019-with her BMI of 44 the patient is exhibiting increased shortness of breath. She does have chronic low back pain and atrial fibrillation with rapid ventricular response. The pain is chronic and the atrial fibrillation is chronic but she does have breakthrough episodes of rapid heart rate. Imaging revealed increased interstitial markings on the right plus dependent atelectasis bilaterally. This is likely influenced by her morbid obesity. Her brain natruretic peptide was elevated on admission but I do not have an echocardiogram to substantiate any heart failure at this time. As her morbid obesity is not going to change I feel she would benefit from chronic oxygen therapy. With very limited exertion she experienced hypoxia. Per nursing her requirement increased to 3 L to maintain saturation above 90% just walking approximately 10 feet from the bathroom to her bed. 08/18/2019-clearly her morbid obesity is contributing to her shortness of breath. After lengthy discussion today she reports that when she is home she can only move a short distance before needing to stop and rest. She states that she has staged different areas of the home so that she has support at certain distances to allow for her to stop and rest. As noted above I am going to investigate further for other possibilities contributing to her shortness of breath and hypoxia. 08/19/2019-we will continue to encourage weight loss. - Plan Summary Summary: Surgery has cleared patient for d/c with outpatient follow up. Aggressive pulmonary toilet. Oxygen requirement has increased. There could be a component of congestive heart failure due to the underlying arrhythmia. There is likely morbid obesity hypoventilation as well. As the oxygen requirements have increased I placed an order for home oxygen therapy. - Time Time Spent with patient: 15-24 minutes Medications reviewed and adjusted accordingly: Yes
[2019-08-19] MEDS ORDERED: FENTANYL CITRATE INJ/PF 100 MCG/2 ML AMPUL IV ONE (12:45)
[2019-08-19] MEDS: RIVAROXABAN 10 MG TABLET PO SCH (17:35)
[2019-08-19] MEDS: ACETAMINOPHEN 325 MG TABLET PO PRN (20:35)
[2019-08-20] MEDS: IPRATROPIUM/ALBUTEROL 0.5-2.5 MG/3 ML AMPUL NEB SCH ×3 (00:23→15:34)
[2019-08-20] MEDS: BUDESONIDE NEB 0.25 MG/2 ML AMPUL NEB SCH ×3 (00:23→15:34)
[2019-08-20] MEDS: SOTALOL HCL 80 MG TABLET PO SCH (10:32)
[2019-08-20] MEDS: LATANOPROST 0.005% OPH SOLN 2.5 ML OU SCH (10:32)
[2019-08-20] MEDS: FAMOTIDINE 20 MG TABLET PO SCH (10:33)
[2019-08-20] MEDS: POTASSIUM CHLORIDE 10 MEQ TABLET.ER PO SCH (10:33)
[2019-08-20] MEDS: PREDNISONE 20 MG TABLET PO SCH (10:33)
[2019-08-20] MEDS: ACETAMINOPHEN 325 MG TABLET PO PRN (10:33)
[2019-08-20] MEDS: DILTIAZEM HCL 180 MG CAPSULE.CR PO SCH (10:33)
[2019-08-20] MEDS: FUROSEMIDE INJ/PF 20 MG/2 ML SDV IV SCH (10:34)
[2019-08-20] MEDS: DOCUSATE SODIUM 100 MG CAPSULE PO SCH (10:34)
[2019-08-20] MEDS: GUAIFENESIN 600 MG TABLET.SA PO SCH (10:34)
--- NOTE | 2019-08-20 13:40 | PDOC PROGRESS REPORT ---
Subjective Progress Note for:: 08/20/19 Subjective:: Home with home health likely CHF Reason For Visit: ABDOMINAL PAIN,CHRONIC AFIB,CHOLEDOCHOLITHIASIS Physical Exam Vital Signs: Temp Pulse Resp BP Pulse Ox 97.6 F 84 20 124/62 92 08/20/19 08:00 08/20/19 08:44 08/20/19 08:44 08/20/19 08:00 08/20/19 08:44 Pulse Oximeter Nocturnal Start: 08/11/19 17:32 Freq: RTQ4 Status: Complete Protocol: Document 08/12/19 04:34 DBE (Rec: 08/12/19 04:34 DBE [email or web address]) Nocturnal Pulse Oximetry Equipment Usage Equipment in Use Nocturnal Spo2 Charge Charge Now Oxygen Delivery Method (includes room Room Air air) O2 Sat by Pulse Oximetry (92-100) 92 Continuous SpO2 Machine # [id number] Intake & Output 08/19/19 08/20/19 08/21/19 06:59 06:59 06:59 Intake Total 1280 1430 Output Total 0 Balance 1280 1430 Weight 138.8 kg General appearance: PRESENT: no acute distress, cooperative, morbidly obese Head exam: PRESENT: atraumatic, normocephalic Eye exam: PRESENT: conjunctiva pink. ABSENT: scleral icterus Ear exam: PRESENT: normal external ear exam. ABSENT: bleeding, drainage Mouth exam: PRESENT: moist, tongue midline Respiratory exam: PRESENT: clear to auscultation aroldo - Anteriorly, symmetrical, unlabored. ABSENT: prolonged expiratory phas, rales, rhonchi, wheezes Cardiovascular exam: PRESENT: irregular rhythm GI/Abdominal exam: PRESENT: normal bowel sounds, soft, tenderness - Still slight tenderness on the right side of the abdomen. ABSENT: distended, guarding Rectal exam: PRESENT: deferred Gentrourinary exam: ABSENT: indwelling catheter Extremities exam: ABSENT: pedal edema Musculoskeletal exam: PRESENT: ambulatory, normal inspection. ABSENT: deformity Neurological exam: PRESENT: alert, awake, oriented to person, oriented to place, oriented to time, oriented to situation, CN II-XII grossly intact Psychiatric exam: PRESENT: flat affect. ABSENT: agitated, anxious Focused psych exam: ABSENT: delusional, restlessness Skin exam: PRESENT: dry, warm. ABSENT: cyanosis, erythema, pallor, rash Results Laboratory Results: 08/16/19 05:07 08/19/19 05:57 08/05/19 08/05/19 08/05/19 05:10 05:10 10:59 Creatine Kinase 39 CK-MB (CK-2) 0.73 Troponin I 0.051 0.112 NT-Pro-B Natriuret Pep 08/05/19 08/13/19 16:43 04:00 Creatine Kinase CK-MB (CK-2) 1.07 Troponin I 0.062 NT-Pro-B Natriuret Pep 1320 H Impressions: Abdomen MRI 08/05/19 00:00 IMPRESSION: 1. The common bile duct is dilated, measuring up to 1.1 cm in caliber. There is an elongated filling defect in the distal common bile duct within the pancreatic head concerning for one or more calculi, measuring 1.6 cm in length and 0.5 cm in caliber (series 6, image 51). 2. Cholelithiasis with mild distention of the gallbladder. Abdomen Ultrasound 08/05/19 07:56 IMPRESSION: Limited exam secondary to body habitus and bowel gas. 1. Cholelithiasis with dilated CBD measuring up to 11 mm. No definite intrahepatic ductal dilation. Findings suggestive of choledocholithiasis. Recommend correlation with LFTs for evidence of biliary obstruction. MRCP or ERCP could be considered for further confirmation. 2. Hepatic steatosis. Catheter Placement 08/08/19 00:00 IMPRESSION: IMAGE(S) OBTAINED DURING PROCEDURE. Fluoroscopy 08/08/19 00:00 IMPRESSION: IMAGE(S) OBTAINED DURING PROCEDURE. Chest/Abdomen CTA 08/09/19 00:00 IMPRESSION: 1. No CT evidence for pulmonary embolism. 2. Mild diffuse interstitial infiltrate, likely cardiogenic pulmonary edema. Cannot exclude an atypical interstitial pneumonia. 3. Cholelithiasis Abdomen/Pelvis CT 08/13/19 00:00 IMPRESSION: 1. Postoperative findings as detailed above. 2. Bilateral caliceal calculi that measure up to 3 mm. There is no hydronephrosis. 3. Colonic diverticulosis without other associated ancillary findings to indicate an acute diverticulitis. Chest CT 08/13/19 00:00 IMPRESSION: Collapse of the lateral segment of the middle lobe - new from 08/09/2019. Other findings including the subpleural and band-like opacities/are as of consolidation in the lingula and lower lobes are unchanged. Chest X-Ray 08/17/19 00:00 IMPRESSION: Stable chest with low lung volumes. No acute findings. Assessment and Plan - Diagnosis (1) Calculus of common bile duct with acute cholecystitis Is this a current diagnosis for this admission?: Yes Plan: 08/17/2019-the patient underwent ERCP with subsequent open cholecystectomy and small bowel repair. Incisions are healing nicely. Gigi-Finney drain remains on the right but surgery reports that they will be discontinuing this today. She will follow-up with surgery as an outpatient in 1 week. 08/18/2019-patient reports occasional small amount of discomfort which should be expected after surgery. 08/19/2019-increased discomfort today. Will monitor. If pain persists will obtain CT scan of the abdomen. 08/20/2019-cholecystitis resolved with cholecystectomy. No further antibiotics required. Still with right-sided abdominal discomfort. She will follow-up with surgery as an outpatient. (2) Acute respiratory failure with hypoxia Is this a current diagnosis for this admission?: Yes (3) Abdominal pain Qualifiers: Abdominal location: right upper quadrant Qualified Code(s): R10.11 - Right upper quadrant pain Is this a current diagnosis for this admission?: Yes (4) Fever Qualifiers: Fever type: unspecified Qualified Code(s): R50.9 - Fever, unspecified Is this a current diagnosis for this admission?: Yes (5) Morbid obesity with BMI of 40.0-44.9, adult Is this a current diagnosis for this admission?: Yes (6) UTI (urinary tract infection) Qualifiers: Urinary tract infection type: acute cystitis Hematuria presence: with hematuria Qualified Code(s): N30.01 - Acute cystitis with hematuria Is this a current diagnosis for this admission?: Yes (7) Bacteremia Is this a current diagnosis for this admission?: Yes (8) Dyspnea Qualifiers: Dyspnea type: acute respiratory distress Qualified Code(s): R06.03 - Acute respiratory distress Is this a current diagnosis for this admission?: Yes (9) Atrial flutter with rapid ventricular response Is this a current diagnosis for this admission?: Yes (10) Morbid (severe) obesity with alveolar hypoventilation Is this a current diagnosis for this admission?: Yes (11) Obstructive sleep apnea Is this a current diagnosis for this admission?: Yes (12) Nocturnal hypoxemia due to obesity Is this a current diagnosis for this admission?: Yes - Plan Summary Summary: Surgery has cleared patient for d/c with outpatient follow up. Aggressive pulmonary toilet. Oxygen requirement has increased. There could be a component of congestive h eart failure due to the underlying arrhythmia. There is likely morbid obesity hypoventilation as well. As the oxygen requirements have increased I placed an order for home oxygen therapy.
[2019-08-20] MEDS: LEVALBUTEROL HCL NEB 1.25 MG/3 ML AMPUL NEB PRN (14:08)
[2019-08-20 16:18] VITALS: BP 140/64
--- NOTE | 2019-08-20 18:26 | PDOC DISCHARGE SUMMARY ---
Impression - Admit/DC Date/PCP Admission Date/Primary Care Provider: 08/05/19 10:25 SAMMY URIBE NP Discharge Date: 08/20/19 - Discharge Diagnosis (1) Calculus of common bile duct with acute cholecystitis Is this a current diagnosis for this admission?: Yes (2) Acute respiratory failure with hypoxia Is this a current diagnosis for this admission?: Yes (3) Abdominal pain Is this a current diagnosis for this admission?: Yes (4) Fever Is this a current diagnosis for this admission?: Yes (5) Morbid obesity with BMI of 40.0-44.9, adult Is this a current diagnosis for this admission?: Yes (6) UTI (urinary tract infection) Is this a current diagnosis for this admission?: Yes (7) Bacteremia Is this a current diagnosis for this admission?: Yes (8) Dyspnea Is this a current diagnosis for this admission?: Yes (9) Atrial flutter with rapid ventricular response Is this a current diagnosis for this admission?: Yes (10) Morbid (severe) obesity with alveolar hypoventilation Is this a current diagnosis for this admission?: Yes (11) Obstructive sleep apnea Is this a current diagnosis for this admission?: Yes (12) Nocturnal hypoxemia due to obesity Is this a current diagnosis for this admission?: Yes - Assessment Summary: Surgery has cleared patient for d/c with outpatient follow up. Aggressive pulmonary toilet. Oxygen requirement has increased. There could be a component of congestive heart failure due to the underlying arrhythmia. There is likely morbid obesity hypoventilation as well. As the oxygen requirements have increased I placed an order for home oxygen therapy. - Additional Information Resuscitation Status: Full Code Discharge Diet: Cardiac Discharge Activity: Balance Activity w/Rest Referrals: [facility] [Provider Group] - 08/26/19 2:15 pm SAMMY URIBE NP [Primary Care Provider] - (Needs follow-up next week) Prescriptions: Potassium Chloride [Klor-Con 10 Meq Tablet ER] 20 meq PO DAILY 14 Days #14 tablet.er Furosemide [Lasix 40 mg Tablet] 40 mg PO QAM 14 Days #14 tablet Budesonide/Formoterol Fumarate [Symbicort Hfa 80-4.5 Mcg Inhaler 6.9 gm] 2 puff IH Q12 15 Days #1 inhaler Home Medications: Bimatoprost [Lumigan 0.01% Oph Soln 2.5 ml/Bottle] 1 drop OU BID 08/05/19 Butalb/Acetaminophen/Caffeine [Fioricet (50-325-40 mg) Tablet] 1 tab PO Q8HP PRN 08/05/19 Calcium Carbonate/Vitamin D3 [Os-Raffaele 500-Vit D3 200 Caplet] 1 tab PO DAILY 08/05/19 Cholecalciferol (Vitamin D3) [Vitamin D3 1000 Unit Tablet] 2,000 unit PO DAILY 08/05/19 Diltiazem HCl [Cardizem Cd 120 mg Capsule] 120 mg PO DAILY 08/05/19 Milk Thistle 150 mg PO DAILY 08/05/19 Omeprazole 20 mg PO QPM 08/05/19 Psyllium Husk (with Sugar) [Metamucil Packet] 3.4 gm PO DAILYP PRN 08/05/19 Rivaroxaban [Xarelto] 20 mg PO QPM 08/05/19 Sotalol HCl [Betapace] 120 mg PO BID 08/05/19 Tramadol HCl [Ultram 50 mg Tablet] 50 mg PO Q6HP PRN 08/05/19 Acetaminophen [Tylenol 325 mg Tablet] 650 mg PO Q4HP PRN tablet 08/20/19 Budesonide/Formoterol Fumarate [Symbicort Hfa 80-4.5 Mcg Inhaler 6.9 gm] 2 puff IH Q12 15 Days #1 inhaler 08/20/19 Docusate Sodium [Colace 100 mg Capsule] 100 mg PO DAILY capsule 08/20/19 Furosemide [Lasix 40 mg Tablet] 40 mg PO QAM 14 Days #14 tablet 08/20/19 Guaifenesin [Mucinex Sr 600 mg Tablet.sa] 600 mg PO Q12 tablet.sa 08/20/19 Potassium Chloride [Klor-Con 10 Meq Tablet ER] 20 meq PO DAILY 14 Days #14 tablet.er 08/20/19 Rivaroxaban [Xarelto 10 mg Tablet] 20 mg PO WSUPPER tablet 08/20/19 History of Present Illiness History of Present Illness: KAMINI FERNANDEZ is a 69 year old female who presented to the emergency department with acute onset abdominal and back pain. On the day of admission she was awakened at 2:00 AM with severe back pain that went to the right upper quadrant of the abdomen. The patient is aware of gallstones in the gallbladder from an ultrasound performed at [facility] within the last 5 years. She has never required an evaluation by surgery before. She reports 1 or 2 attacks per year of right upper quadrant pain that resolves on its own. At this presentation the pain was more severe and did not improve. Upon evaluation emergency room she exhibited a temperature of 102.2 Fahrenheit. She had abdominal pain. Imaging revealed cholecystitis. She was admitted by the hospitalist service with surgery consulting. Hospital Course Hospital Course: Hospital course Cholecystitis-the patient underwent cholecystectomy. There was a Gigi-Finney drain on the right. This was pulled earlier this week. Her anticoagulation was resumed. She still has some right-sided abdominal discomfort. She will follow- up with surgery as an outpatient. Chronic atrial fibrillation-earlier this week when the patient was ambulating to the bathroom she exhibited rapid ventricular response to her atrial fibrillation. Her heart rate hit 150 bpm. She is on sotalol and diltiazem. She was given an extra dose of IV diltiazem. She remains on her previous dose of sotalol and diltiazem. Her heart rate will occasionally get above 100 but this is not prolonged. She is back on her anticoagulation. T Acute hypoxic respiratory failure-he patient exhibited hypoxic respiratory failure during this hospitalization. She states that she will get short of breath from the atrial fibrillation. She denies any history of congestive heart failure or COPD. She did require oxygen therapy. On the day of discharge she was resting comfortably in bed on room air. She was observed to walk out of her room across the giron and back to bed without oxygen. Echocardiogram has been obtained and we await the final interpretation. Pulmonary function testing has been ordered and I believe was completed prior to the patient leaving. Based on her presentation it seems that the patient may have as yet undiagnosed heart failure or COPD. She will follow-up with her primary care provider. I did prescribe a Symbicort inhaler (80 mg) and instructed her to take 2 puffs twice daily until she sees her primary care provider. Work-up of her acute hypoxic respiratory failure delayed discharge. Obesity hypoventilation syndrome with nocturnal hypoxia-the patient likely has obstructive sleep apnea based on a continuous nocturnal oximetry test. She has multiple desaturations below 88%. This should at least qualify for nocturnal oxygen and she should have a formal polysomnogram to confirm the diagnosis of sleep apnea. Urinary tract infection-treated with antibiotics and resolved. This was likely the source of bacteremia which responded to antibiotic therapy as well. Morbid obesity BMI 46-the patient would greatly benefit from an aggressive weight loss management program. This would help her sleep apnea, respiratory failure and overall health. Physical Exam Vital Signs: Temp Pulse Resp BP Pulse Ox 97.8 F 82 16 140/64 H 91 L 08/20/19 16:14 08/20/19 16:14 08/20/19 16:14 08/20/19 16:14 08/20/19 16:14 Pulse Oximeter Nocturnal Start: 08/11/19 17:32 Freq: RTQ4 Status: Complete Protocol: Document 08/12/19 04:34 DBE (Rec: 08/12/19 04:34 DBE [id number]) Nocturnal Pulse Oximetry Equipment Usage Equipment in Use Nocturnal Spo2 Charge Charge Now Oxygen Delivery Method (includes room Room Air air) O2 Sat by Pulse Oximetry (92-100) 92 Continuous SpO2 Machine # [id number] Intake & Output 08/19/19 08/20/19 08/21/19 06:59 06:59 06:59 Intake Total 1280 1430 360 Output Total 0 Balance 1280 1430 360 Weight 138.8 kg General appearance: PRESENT: no acute distress, cooperative, morbidly obese, well-developed Head exam: PRESENT: atraumatic, normocephalic Eye exam: PRESENT: conjunctiva pink, EOMI. ABSENT: scleral icterus Ear exam: PRESENT: normal external ear exam. ABSENT: bleeding, drainage Mouth exam: PRESENT: moist, tongue midline Respiratory exam: PRESENT: clear to auscultation aroldo - Anteriorly bilaterally, symmetrical, unlabored. ABSENT: prolonged expiratory phas, rales, rhonchi, tachypnea, wheezes Cardiovascular exam: PRESENT: irregular rhythm GI/Abdominal exam: PRESENT: normal bowel sounds, soft, other - Protuberant abdomen. ABSENT: tenderness Rectal exam: PRESENT: deferred Gentrourinary exam: ABSENT: indwelling catheter Extremities exam: ABSENT: pedal edema Musculoskeletal exam: PRESENT: ambulatory, normal inspection. ABSENT: deformity Neurological exam: PRESENT: alert, awake, oriented to person, oriented to place, oriented to time, oriented to situation, CN II-XII grossly intact Psychiatric exam: PRESENT: appropriate affect. ABSENT: agitated, anxious Focused psych exam: ABSENT: delusional, restlessness Results Laboratory Results: WBC 14.1 10^3/uL (4.0-10.5) H 08/16/19 05:07 RBC 4.35 10^6/uL (3.72-5.28) 08/16/19 05:07 Hgb 12.2 g/dL (12.0-15.5) 08/16/19 05:07 Hct 38.6 % (36.0-47.0) 08/16/19 05:07 MCV 89 fl (80-97) 08/16/19 05:07 MCH 28.1 pg (27.0-33.4) 08/16/19 05:07 MCHC 31.7 g/dL (32.0-36.0) L 08/16/19 05:07 RDW 16.4 % (11.5-14.0) H 08/16/19 05:07 Plt Count 362 10^3/uL (150-450) 08/16/19 05:07 Lymph % (Auto) Not Reportable 08/14/19 04:35 [place] % (Auto) Not Reportable 08/14/19 04:35 Eos % (Auto) Not Reportable 08/14/19 04:35 Baso % (Auto) Not Reportable 08/14/19 04:35 Absolute Neuts (auto) Not Reportable 08/14/19 04:35 Absolute Lymphs (auto) Not Reportable 08/14/19 04:35 Absolute Monos (auto) Not Reportable 08/14/19 04:35 Absolute Eos (auto) Not Reportable 08/14/19 04:35 Absolute Basos (auto) Not Reportable 08/14/19 04:35 Total Counted 100 08/14/19 04:35 Seg Neutrophils % Not Reportable 08/14/19 04:35 Seg Neuts % (Manual) 94 % (42-78) H 08/14/19 04:35 Band Neutrophils % 4 % (3-5) 08/05/19 05:10 Lymphocytes % (Manual) 6 % (13-45) L 08/14/19 04:35 Monocytes % (Manual) 0 % (3-13) L 08/14/19 04:35 Eosinophils % (Manual) 0 % (0-6) 08/14/19 04:35 Basophils % (Manual) 0 % (0-2) 08/14/19 04:35 Abs Neuts (Manual) 14.5 10^3/uL (1.7-8.2) H 08/14/19 04:35 Abs Lymphs (Manual) 0.9 10^3/uL (0.5-4.7) 08/14/19 04:35 Abs Monocytes (Manual) 0.0 10^3/uL (0.1-1.4) L 08/14/19 04:35 Absolute Eos (Manual) 0.0 10^3/uL (0.0-0.6) 08/14/19 04:35 Abs Basophils (Manual) 0.0 10^3/uL (0.0-0.2) 08/14/19 04:35 Toxic Granulation SLIGHT 08/14/19 04:35 Toxic Vacuolation PRESENT 08/14/19 04:35 Platelet Comment ADEQUATE 08/14/19 04:35 Poikilocytosis SLIGHT 08/14/19 04:35 Anisocytosis 1+ 08/05/19 05:10 Ovalocytes SLIGHT 08/14/19 04:35 PT 14.3 SEC (11.4-15.4) 08/12/19 04:27 INR 1.10 08/12/19 04:27 APTT 28.0 SEC (23.5-35.8) 08/12/19 09:21 D-Dimer 1.50 ug/mL (0.00-0.50) H 08/09/19 17:18 Carbonic Acid 1.35 mmol/L (1.05-1.35) 08/13/19 13:52 HCO3/H2CO3 Ratio 20:1 08/13/19 13:52 ABG pH 7.40 (7.35-7.45) 08/13/19 13:52 ABG pCO2 44.7 mmHg (35-45) 08/13/19 13:52 ABG pO2 72.8 mmHg (80-100) L 08/13/19 13:52 ABG HCO3 27.3 mmol/L (20-24) H 08/13/19 13:52 ABG Total CO2 28.6 mmol/L (21-25) H 08/13/19 13:52 ABG O2 Saturation 94.6 % (94-98) 08/13/19 13:52 ABG Base Excess 2.1 mmol/L 08/13/19 13:52 FiO2 3L 08/13/19 13:52 Sodium 140.4 mmol/L (137-145) 08/19/19 05:57 Potassium 3.9 mmol/L (3.6-5.0) 08/19/19 05:57 Chloride 104 mmol/L (98-107) 08/19/19 05:57 Carbon Dioxide 28 mmol/L (22-30) 08/19/19 05:57 Anion Gap 8 (5-19) 08/19/19 05:57 BUN 11 mg/dL (7-20) 08/19/19 05:57 Creatinine 0.51 mg/dL (0.52-1.25) L 08/19/19 05:57 Est GFR ( Amer) > 60 (>60) 08/19/19 05:57 Est GFR (MDRD) Non-Af > 60 (>60) 08/19/19 05:57 Glucose 100 mg/dL (75-110) 08/19/19 05:57 Lactic Acid 1.2 mmol/L (0.7-2.1) 08/05/19 10:59 Lactic Acid (Sepsis) 2.9 mmol/L (0.7-2.1) H 08/05/19 05:10 Calcium 9.7 mg/dL (8.4-10.2) 08/19/19 05:57 Magnesium 1.5 mg/dL (1.6-2.3) L 08/13/19 04:00 Total Bilirubin 0.5 mg/dL (0.2-1.3) 08/17/19 05:01 Direct Bilirubin 0.2 mg/dL (0.0-0.4) 08/17/19 05:01 Neonat Total Bilirubin Not Reportable 08/17/19 05:01 Neonat Direct Bilirubin Not Reportable 08/17/19 05:01 Neonat Indirect Bili Not Reportable 08/17/19 05:01 AST 49 U/L (14-36) H 08/17/19 05:01 ALT 42 U/L (<35) 08/17/19 05:01 Alkaline Phosphatase 61 U/L (38-126) 08/17/19 05:01 Creatine Kinase 39 U/L (30-135) 08/05/19 05:10 CK-MB (CK-2) 1.07 ng/mL (<4.55) 08/05/19 16:43 Troponin I 0.062 ng/mL 08/05/19 16:43 NT-Pro-B Natriuret Pep 1320 pg/mL (<125) H 08/13/19 04:00 Total Protein 6.3 g/dL (6.3-8.2) 08/17/19 05:01 Albumin 3.3 g/dL (3.5-5.0) L 08/17/19 05:01 Lipase 67.4 U/L (23-300) 08/09/19 04:23 TSH 1.69 uIU/mL (0.47-4.68) 08/05/19 10:59 Urine Color YELLOW 08/13/19 06:30 Urine Appearance SLIGHTLY-CLOUDY 08/13/19 06:30 Urine pH 6.0 (5.0-9.0) 08/13/19 06:30 Ur Specific [place] 1.027 08/13/19 06:30 Urine Protein 100 mg/dL (NEGATIVE) H 08/13/19 06:30 Urine Glucose (UA) NEGATIVE mg/dL (NEGATIVE) 08/13/19 06:30 Urine Ketones NEGATIVE mg/dL (NEGATIVE) 08/13/19 06:30 Urine Blood SMALL (NEGATIVE) H 08/13/19 06:30 Urine Nitrite NEGATIVE (NEGATIVE) 08/13/19 06:30 Urine Bilirubin NEGATIVE (NEGATIVE) 08/13/19 06:30 Urine Urobilinogen NEGATIVE mg/dL (<2.0) 08/13/19 06:30 Ur Leukocyte Esterase NEGATIVE (NEGATIVE) 08/13/19 06:30 Urine WBC (Auto) 4 /HPF 08/13/19 06:30 Urine RBC (Auto) 23 /HPF 08/13/19 06:30 Urine Bacteria (Auto) TRACE /HPF 08/10/19 17:28 Squamous Epi Cells Auto <1 /HPF 08/13/19 06:30 Urine Mucus (Auto) FEW /LPF 08/13/19 06:30 Urine Ascorbic Acid NEGATIVE (NEGATIVE) 08/13/19 06:30 Time Trough Drawn 1337 08/14/19 13:37 Vancomycin Trough < 5.0 ug/mL (5.0-20.0) L 08/14/19 13:37 08/05/19 08/05/19 08/05/19 05:10 10:59 16:43 CK-MB (CK-2) 0.73 1.07 Troponin I 0.051 0.112 0.062 NT-Pro-B Natriuret Pep 08/13/19 04:00 CK-MB (CK-2) Troponin I NT-Pro-B Natriuret Pep 1320 H Impressions: Abdomen MRI 08/05/19 00:00 IMPRESSION: 1. The common bile duct is dilated, measuring up to 1.1 cm in caliber. There is an elongated filling defect in the distal common bile duct within the pancreatic head concerning for one or more calculi, measuring 1.6 cm in length and 0.5 cm in caliber (series 6, image 51). 2. Cholelithiasis with mild distention of the gallbladder. Abdomen Ultrasound 08/05/19 07:56 IMPRESSION: Limited exam secondary to body habitus and bowel gas. 1. Cholelithiasis with dilated CBD measuring up to 11 mm. No definite intrahepatic ductal dilation. Findings suggestive of choledocholithiasis. Recommend correlation with LFTs for evidence of biliary obstruction. MRCP or ERCP could be considered for further confirmation. 2. Hepatic steatosis. Chest X-Ray 08/05/19 09:57 IMPRESSION: NO ACUTE RADIOGRAPHIC FINDING IN THE CHEST. Catheter Placement 08/08/19 00:00 IMPRESSION: IMAGE(S) OBTAINED DURING PROCEDURE. Chest X-Ray 08/08/19 00:00 IMPRESSION: No acute disease. copyright 2010 [employer]- All Rights Reserved Fluoroscopy 08/08/19 00:00 IMPRESSION: IMAGE(S) OBTAINED DURING PROCEDURE. Chest X-Ray 08/09/19 00:00 IMPRESSION: NO ACUTE RADIOGRAPHIC FINDING IN THE CHEST. Chest/Abdomen CTA 08/09/19 00:00 IMPRESSION: 1. No CT evidence for pulmonary embolism. 2. Mild diffuse interstitial infiltrate, likely cardiogenic pulmonary edema. Cannot exclude an atypical interstitial pneumonia. 3. Cholelithiasis Chest X-Ray 08/10/19 00:00 IMPRESSION: NO ACUTE RADIOGRAPHIC FINDING IN THE CHEST. Abdomen/Pelvis CT 08/13/19 00:00 IMPRESSION: 1. Postoperative findings as detailed above. 2. Bilateral caliceal calculi that measure up to 3 mm. There is no hydronephrosis. 3. Colonic diverticulosis without other associated ancillary findings to indicate an acute diverticulitis. Chest CT 08/13/19 00:00 IMPRESSION: Collapse of the lateral segment of the middle lobe - new from 08/09/2019. Other findings including the subpleural and band-like opacities/areas of consolidation in the lingula and lower lobes are unchanged. Chest X-Ray 08/13/19 00:00 IMPRESSION: Low inspiratory lung volume and new patchy opacities in the left base that could represent atelectasis. Clinical correlation to exclude a pneumonia is recommended. Chest X-Ray 08/17/19 00:00 IMPRESSION: Stable chest with low lung volumes. No acute findings. Plan Health Concerns: Chronic persistent atrial fibrillation. Healing from laparotomy for cholecystectomy. Likely undiagnosed obstructive sleep apnea. Awaiting final PFT and echocardiogram reports. Concern for pulmonary hypertension as well. Plan of Treatment: I had a long discussion with the patient. She does not wish to go to a jail facility. We have arranged home health with jail, physical and occupational therapies. They can help with medication administration. I did not have the final results of the echocardiogram and pulmonary function testing. With the possibility of COPD I did give her a Symbicort inhaler to use until she sees her primary care provider. By that time the final results of the pulmonary function tests should be available. If they do not show obstructive disease then she can discontinue the inhaler. I will asked that the nocturnal oximetry be sent to the primary care provider so that a sleep study can be performed. I believe that she will be diagnosed with obstructive sleep apnea and require CPAP or possibly BiPAP. She will continue her other medications. She has a follow-up with surgery. She was still mentioning some discomfort on the right side. I told her if it persists or gets worse call the surgical office and they will likely have you co me in sooner. I did discharge her on furosemide as well. This will help with blood pressure control mostly and avoid fluid retention. The patient already has a walker at home. She is okay with the discharge plan. All of her questions and concerns were addressed. Goals: Review of pending tests with her primary care provider Follow-up with surgery for postcholecystectomy care Time Spent: Greater than 30 Minutes Stroke Is this a Stroke Patient?: No Acute Heart Failure - Is this a Heart Failure Patient?: No
--- NOTE | 2019-08-24 12:49 | XCELERA REPORT ---
[address] [address] Transthoracic Echocardiogram Report Name: KAMINI FERNANDEZ Age: 69 yrs Gender: Female : 1950 Patient Status: [facility] Date: 08/19/2019 11:12 AM History: Atrial fibrillation Height: 68 in Weight: 291 lb BSA: 2.4 m2 Procedure: A complete two-dimensional transthoracic echocardiogram was performed (2D, M-mode, spectral and color flow Doppler). The study was technically difficult with many images being suboptimal in quality. Reason For Study: Assess for heart failure, pulmonary hypertension Previous Evaluation: No previous studies were available. History: Obesity. Other: Atrial fibrillation. Ordering Physician: BRIANDA MENDOZA Performed By: Heath Nicole Interpretation Summary The study was technically difficult with many images being suboptimal in quality. Left ventricular systolic function is normal. The Ejection Fraction estimate is 55-60% The right ventricle is normal in size and function. There is a trace amount of mitral regurgitation There is no aortic valve stenosis There is a trace or physiologic amount of tricuspid regurgitation There is no pericardial effusion. MMode/2D Measurements & Calculations RVDd: 2.9 cm LVIDd: 3.9 cm FS: 33.6 % Ao root diam: 3.0 cm IVSd: 0.96 cm LVIDs: 2.6 cm EDV(Teich): 67.5 ml Ao root area: 6.9 cm2 LVPWd: 1.0 cm ESV(Teich): 25.0 ml LA dimension: 3.0 cm EF(Teich): 63.0 % Doppler Measurements & Calculations MV E max so: MV P1/2t max so: Ao V2 max: LV V1 max P.1 cm/sec 83.5 cm/sec 104.5 cm/sec 2.3 mmHg MV A max so: MV P1/2t: 58.7 msec Ao max PG: LV V1 max: 38.5 cm/sec MVA(P1/2t): 3.7 cm2 4.4 mmHg 76.2 cm/sec MV E/A: 2.0 MV dec slope: 416.6 cm/sec2 MV dec time: 0.19 sec PA V2 max: PI end-d so: TR max so: MV P1/2t-pr_phl: 86.4 cm/sec 101.0 cm/sec 268.8 cm/sec 58.7 msec PA max PG: TR max P.0 mmHg 28.9 mmHg Left Ventricle The left ventricle is grossly normal size. There is mild concentric left ventricular hypertrophy. Left ventricular systolic function is normal. The Ejection Fraction estimate is 55-60%. LV diastolic function not assessed. Right Ventricle The right ventricle is normal in size and function. Atria The right atrium is normal. The left atrium is mildly dilated. Mitral Valve The mitral valve is grossly normal. There is a trace amount of mitral regurgitation. Aortic Valve The aortic valve is sclerotic, but shows no functional abnormality. The aortic valve is trileaflet. There is no aortic valve stenosis. No aortic regurgitation is present. Tricuspid Valve The tricuspid valve is normal in structure and function. There is a trace or physiologic amount of tricuspid regurgitation. Doppler findings do not suggest pulmonary hypertension. Pulmonic Valve The pulmonic valve is not well visualized. The pulmonic valve is not well seen, but is grossly normal. There is a mild amount of pulmonic regurgitation. Great Vessels The aortic root is normal size. The inferior vena cava was not well visualized. Effusions There is no pericardial effusion. : BRIANDA MENDOZA Anil
--- NOTE | 2019-08-26 14:22 | Pulmonary Function Test ---
Pulmonary Function Test Date of Procedure:: 08/20/19 INDICATION:: Dyspnea Referring Provider: - Report Spirometry: Spirometry: pre-FVC:[2.27 L 65%] post-FVC: 1.94 L 55% pre-FEV:1 1.56 L 59% post-FEV1: 1.62 L 61% pre-FEV1/FVC %: 69 post-FEV1/FVC%: 84 predicted: 76 [id number]%: 0.95 L 44% [id number]%: 1.58 L 73% Impression: Moderate obstructive ventilatory defect is implied by the decreased flow in the FEF 25-75%. Moderate restrictive ventilatory defect is also implied by the decreased FVC pre-and postbronchodilator. Restrictive defect cannot be diagnosed on the basis of spirometry alone if clinically indicated suggest complete pulmonary function test would be warranted
== END 2019-08-20 16:45 | disposition home health service (06) | DRG 417 ==
LOC: ER 04:43 → EH 10:25 → 4W 12:38 → 5 08-06 14:27
PROVIDERS: ADMIT Hospitalist; ATTEND Hospitalist
PROC: 0FC98ZZ Extirpation of Matter from Common Bile Duct, Via Natural or Artificial Opening Endoscopic (ICD-10-PCS; 2019-08-08)
PROC: 0FC78ZZ Extirpation of Matter from Common Hepatic Duct, Via Natural or Artificial Opening Endoscopic (ICD-10-PCS; 2019-08-08)
PROC: 0DC84ZZ Extirpation of Matter from Small Intestine, Percutaneous Endoscopic Approach (ICD-10-PCS; 2019-08-12)
PROC: 0FT44ZZ Resection of Gallbladder, Percutaneous Endoscopic Approach (ICD-10-PCS; principal; 2019-08-12 11:00)
PROC: 5A09357 Assistance with Respiratory Ventilation, Less than 24 Consecutive Hours, Continuous Positive Airway Pressure (ICD-10-PCS; 2019-08-13)
DX: K80.62 Calculus of gallbladder and bile duct with acute cholecystitis without obstruction (principal); J96.01 Acute respiratory failure with hypoxia; I48.92 Unspecified atrial flutter; Z68.41 Body mass index [BMI] 40.0-44.9, adult; R78.81 Bacteremia; E66.2 Morbid (severe) obesity with alveolar hypoventilation; I48.19 Other persistent atrial fibrillation; N30.01 Acute cystitis with hematuria; I10 Essential (primary) hypertension; B96.20 Unspecified Escherichia coli [E. coli] as the cause of diseases classified elsewhere; G89.29 Other chronic pain; M54.5 Low back pain; K44.9 Diaphragmatic hernia without obstruction or gangrene; E87.6 Hypokalemia; T50.1X5A Adverse effect of loop [high-ceiling] diuretics, initial encounter; Y92.9 Unspecified place or not applicable; Z79.899 Other long term (current) drug therapy; Z79.01 Long term (current) use of anticoagulants; Z79.51 Long term (current) use of inhaled steroids; Z79.891 Long term (current) use of opiate analgesic; Z88.2 Allergy status to sulfonamides
CPT/HCPCS: 00732; 00790; 36415; 36600; 43264; 71045; 71046; 71250; 71275; 74176; 74181; 74328; 76705; 80048; 80053; 80202; 81001; 82550; 82553; 82565; 82803; 83605; 83690; 83735; 83880; 84443; 84484; 85025; 85027; 85379; 85610; 85730; 87040; 87077; 87086; 87088; 87150; 87186; 88304; 93005; 93010; 93306; 94660; 94762; 94799; 96374; 99285; A6240; J0330; J1100; J1335; J1644; J1885; J1940; J2250; J2270; J2405; J2543; J2704; J2920; J2930; J3010; J3475; J3480; J3490; J7030; J7050; J7512; J7620; J7626; S0028; S0119

== ENCOUNTER 2019-11-10 12:35 | Inpatient (IN) | payer MEDICARE, MEDICAID ==
[2019-11-10 13:36] LABS: ABSOLUTE LYMPHOCYTES (AUTO) 1.1 10^3/uL (0.5-4.7); ABSOLUTE MONOCYTES (AUTO) 0.5 10^3/uL (0.1-1.4); ABSOLUTE NEUT (AUTO) 4.3 10^3/uL (1.7-8.2); ALBUMIN 2.6 g/dL (3.5-5.0); ALKALINE PHOSPHATASE 66 U/L (38-126); ANION GAP 7 (5-19); ASPARTATE AMINO TRANSFERASE 51 U/L (14-36); BASOPHILS % (AUTO) 0.6 % (0-2); BILIRUBIN,DIRECT 0.4 mg/dL (0.0-0.4); BILIRUBIN,TOTAL 0.9 mg/dL (0.2-1.3); BLOOD UREA NITROGEN 9 mg/dL (7-20); CALCIUM 8.2 mg/dL (8.4-10.2); CARBON DIOXIDE 28 mmol/L (22-30); CHLORIDE 103 mmol/L (98-107); CREATINE KINASE 22 U/L (30-135); EOSINOPHILS % (AUTO) 0.5 % (0-6); GLUCOSE 98 mg/dL (75-110); HEMATOCRIT 34.7 % (36.0-47.0); HEMOGLOBIN 11.6 g/dL (12.0-15.5); LYMPHOCYTES % (AUTO) 18.2 % (13-45); MEAN CORPUSCULAR HEMOGLOBIN 30.6 pg (27.0-33.4); MEAN CORPUSCULAR HGB CONC 33.5 g/dL (32.0-36.0); MEAN CORPUSCULAR VOLUME 91 fl (80-97); MONOCYTES % (AUTO) 7.9 % (3-13); PLATELET COUNT 246 10^3/uL (150-450); POTASSIUM 3.9 mmol/L (3.6-5.0); RED BLOOD COUNT 3.81 10^6/uL (3.72-5.28); RED CELL DISTRIBUTION WIDTH 19.2 % (11.5-14.0); SEGMENTED NEUTROPHILS % (AUTO) 72.8 % (42-78); TOTAL CELLS COUNTED % (AUTO) 100 %; TOTAL PROTEIN 5.7 g/dL (6.3-8.2); WHITE BLOOD COUNT 5.9 10^3/uL (4.0-10.5)
[2019-11-10 13:48] LABS: CREATINE KINASE MB 0.34 ng/mL (<4.55)
[2019-11-10 13:51] LABS: TROPONIN I < 0.012 ng/mL
[2019-11-10] MEDS ORDERED: NORMAL SALINE 500 ML IV ONE (14:34)
[2019-11-10] MEDS ORDERED: PREDNISONE 20 MG TABLET PO ONE (14:35)
--- NOTE | 2019-11-10 14:36 | ER Document Report ---
ED Dizziness/Weakness - General Chief Complaint: Syncope Stated Complaint: GENERAL WEAKNESS Time Seen by Provider: 11/10/19 14:23 Primary Care Provider: SAMMY URIBE NP [Primary Care Provider] - Follow up as needed Notes: CHIEF COMPLAINT: Syncopal episode, generalized weakness, leg numbness HPI: 69-year-old female with history of hypertension, atrial fibrillation brought in for evaluation of a syncopal episode. Patient was on the toilet and began feeling lightheaded. No chest pain, no sensation of her heart beating irregularly. Patient states that the home health nurse came in to assist her and after she stood up she became more lightheaded and passed out for approximately a minute. Patient states she was assisted to the ground did not hit her head. Patient states that she has been having generalized weakness issues for 2 months. Patient states that she has seen her PCP about this but they have not figured out what is the problem yet. She states that she has ongoing numbness and tingling in the hands and legs. States that she does have a prior history of multiple herniated disks in the low back. No incontinence of urine but states that she saw some blood with urination today. Patient states she just finished antibiotics 5 days ago for UTI. Has not had fever. Has not had vomiting. Patient states that she is on Xarelto for the atrial fibrillation history as well as history of PE. She has no pleuritic pain or shortness of breath at this time. ROS: See HPI - all other systems were reviewed and are otherwise negative Constitutional: no fever Eyes: no drainage, no blurred vision ENT: no runny nose, no sore throat Cardiovascular: no chest pain Resp: no SOB, no cough GI: no vomiting, no diarrhea, no abdominal pain : no dysuria Integumentary: no rash Allergy: no hives Musculoskeletal: no extremity pain or swelling Neurological: Positive chronic numbness/tingling, positive generalized weakness MEDICATIONS: I agree with the patient medications as charted by the RN. ALLERGIES: I agree with the allergies as charted by the RN. PAST MEDICAL HISTORY/PAST SURGICAL HISTORY: Reviewed and agree as charted by RN. SOCIAL HISTORY: Reviewed and agree as charted by RN. FAMILY HISTORY: No significant familial comorbid conditions directly related to patient complaint EXAM: Reviewed vital signs as charted by RN. CONSTITUTIONAL: Alert and oriented and responds appropriately to questions. Well-appearing; well-nourished, mild distress secondary to discomfort HEAD: Normocephalic; atraumatic EYES: PERRL; Conjunctivae clear, sclerae non-icteric ENT: normal nose; no rhinorrhea; moist mucous membranes; pharynx without lesions noted, no uvula edema or deviation, no tonsillar hypertrophy, phonation normal NECK: Supple without meningismus; non-tender; no cervical lymphadenopathy, no masses CARD: Occasionally irregular; no murmurs, no clicks, no rubs, no gallops; symmetric distal pulses RESP: Normal chest excursion without splinting or tachypnea; breath sounds clear and equal bilaterally; no wheezes, no rhonchi, no rales, pulse oximetry 98% on room air not hypoxic ABD/GI: Normal bowel sounds; non-distended; soft, non-tender, no rebound, no guarding; no palpable organomegaly or masses. BACK: The back appears normal and is non-tender to palpation, there is no CVA t enderness EXT: Normal ROM in all joints; non-tender to palpation; no cyanosis, no effusions, no edema SKIN: Normal color for age and race; warm; dry; good turgor; no acute lesions noted NEURO: Moves all extremities equally; patient with 5/5 strength bilateral feet on flexion extension. She is able to flex and extend both legs at the knees and hips. Patient has some difficulty with straight leg raise able to only bring both feet off of the bed approximately 4 to 5 inches. She is not having significant back pain with this. She reports numbness and tingling on palpation of the anterior, posterior and lateral aspects of both the thighs and lower legs to touch. PSYCH: The patient's mood and manner are appropriate. Grooming and personal hygiene are appropriate. MDM: 69-year-old female presenting for a syncopal episode. Patient became lightheaded while on the toilet after moving her bowels. She states that she has seen some blood in her urine and was recently treated for UTI. Patient does have some weakness in the bilateral legs but this is apparently an ongoing problem for which she states she has been seen by her PCP but they have not yet figured out what the issue is. Patient does not have any chest pain shortness of breath, does have atrial fibrillation history. She is on multiple medications which can drop her blood pressure including diltiazem, states she did take her blood pressure medication this morning. Will attempt orthostatics, she is mildly hypotensive I suspect that a vasovagal episode is likely what happened this morning. Initial screening lab work does not show acute emergent abnormalities. Will add chest x-ray. She has no unilateral weakness suggesting CVA. TRAVEL OUTSIDE OF THE [place] IN LAST 30 DAYS: No - Related Data Allergies/Adverse Reactions: Sulfa (Sulfonamide Antibiotics) Allergy (Verified 08/05/19 07:53) RASH Past Medical History - Social History Smoking Status: Never Smoker Family History: Reviewed & Not Pertinent Patient has suicidal ideation: No Patient has homicidal ideation: No - Past Medical History Cardiac Medical History: Reports: Hx Atrial Fibrillation, Hx Hypertension Denies: Hx Heart Attack Pulmonary Medical History: Denies: Hx Asthma Neurological Medical History: Denies: Hx Cerebrovascular Accident, Hx Seizures GI Medical History: Reports: Hx Hiatal Hernia. Denies: Hx Hepatitis, Hx Ulcer Infectious Medical History: Denies: Hx Hepatitis Past Surgical History: Reports: Hx Herniorrhaphy, Hx Hysterectomy, Hx Kidney (Renal Surgery). Denies: Hx Mastectomy, Hx Open Heart Surgery, Hx Pacemaker - Immunizations Hx Diphtheria, Pertussis, Tetanus Vaccination: Yes Physical Exam - Vital signs Vitals: Temp Pulse Resp BP Pulse Ox 98.4 F 89 17 96/66 L 98 11/10/19 12:49 11/10/19 12:49 11/10/19 12:49 11/10/19 12:49 11/10/19 12:49 Course - Re-evaluation Re-evalutation: 11/10/19 15:22 We attempted to stand the patient for orthostatics and she is unable to support her weight. She states she normally is able to get around at home with a walker but feels like she is so weak in the legs today that she cannot stand. Orthostatics laying and sitting do not appear to be abnormal. Patient did have some diarrhea this morning, PCT's are cleaning the patient at this time and she is noted to have redness on the bilateral gluteal regions more prominent on the left gluteus that may become stage I decubitus. 11/10/19 15:28 Case was discussed with Dr. Melendez attending 11/10/19 15:[address] Cason, Hospitalist, case discussed, labs and history reviewed, will admit to telemetry floor, observation - Vital Signs Vital signs: Temp Pulse Resp BP Pulse Ox 98.4 F 86 17 99/60 L 98 11/10/19 12:49 11/10/19 15:27 11/10/19 12:49 11/10/19 15:27 11/10/19 12:49 - Laboratory Result Diagrams: 11/10/19 12:55 11/10/19 12:55 Laboratory results interpreted by me: 11/10/19 11/10/19 11/10/19 12:55 12:55 15:25 Hgb 11.6 L Hct 34.7 L RDW 19.2 H Creatinine 0.43 L Calcium 8.2 L AST 51 H Creatine Kinase 22 L Total Protein 5.7 L Albumin 2.6 L Urine Protein 30 H Urine Nitrite POSITIVE H Urine Urobilinogen 4.0 H Ur Leukocyte Esterase LARGE H Discharge - Discharge Clinical Impression: Syncope and collapse, Recurrent UTI (urinary tract infection), Failure of outpatient treatment, Weakness, Skin breakdown Condition: Stable Disposition: ADMITTED OBSERVATION Admitting Provider: Kamla (Hospitalist) Unit Admitted: Telemetry Referrals: SAMMY URIBE NP [Primary Care Provider] - Follow up as needed
--- NOTE | 2019-11-10 15:10 | RADIOLOGY REPORT (SQ) ---
EXAM DESCRIPTION: CHEST 2 VIEWS COMPLETED DATE/TIME: 11/10/2019 3:00 pm REASON FOR STUDY: syncope COMPARISON: 08/17/2019, 08/10/[address] chest 08/13/2019 EXAM PARAMETERS: NUMBER OF VIEWS: two views TECHNIQUE: Digital Frontal and Lateral radiographic views of the chest acquired. RADIATION DOSE: NA LIMITATIONS: none FINDINGS: LUNGS AND PLEURA: No opacities, masses or pneumothorax. No pleural effusion. MEDIASTINUM AND HILAR STRUCTURES: No masses or contour abnormalities. HEART AND VASCULAR STRUCTURES: Heart normal size. No evidence for failure. BONES: No acute findings. HARDWARE: None in the chest. OTHER: No other significant finding. IMPRESSION: NO ACUTE RADIOGRAPHIC FINDING IN THE CHEST. TECHNICAL DOCUMENTATION: JOB ID: [id number] 2010 [employer]- All Rights Reserved Reading location - IP/workstation name: [id number]
[2019-11-10 15:45] LABS: APPEARANCE,URINE CLOUDY; BILIRUBIN,URINE NEGATIVE (NEGATIVE); COLOR,URINE AMBER; GLUCOSE, URINE NEGATIVE (NEGATIVE); KETONES,URINE NEGATIVE (NEGATIVE); LEUKOCYTE ESTERASE,URINE LARGE (NEGATIVE); NITRITE,URINE POSITIVE (NEGATIVE); PROTEIN,URINE 30 mg/dL (NEGATIVE); URINE SPECIFIC GRAVITY 1.015
[2019-11-10] MEDS ORDERED: CEFTRIAXONE 1 GM/D5W RTU 1 GM/50 ML RTUPB IV ONE (15:50)
--- NOTE | 2019-11-10 17:37 | RADIOLOGY REPORT (SQ) ---
EXAM DESCRIPTION: CT LUMBAR SPINE WITHOUT COMPLETED DATE/TIME: 11/10/2019 5:11 pm REASON FOR STUDY: leg weakness/no MRI service availabie COMPARISON: CT abdomen pelvis 08/13/2019 TECHNIQUE: Axial images acquired through the lumbar spine without intravenous contrast. Images revi ewed with lung, soft tissue and bone windows. Reconstructed coronal and sagittal MPR images reviewed . All images stored on PACS. All CT scanners at this facility use dose modulation, iterative reconstruction, and/or weight based d osing when appropriate to reduce radiation dose to as low as reasonably achievable (ALARA). [facility]: Dose Right [facility]: CareDose [facility]: Dose Right [facility]: Teradose 4D [facility]: [employer] RADIATION DOSE: 62 mGy. LIMITATIONS: None. FINDINGS: SEGMENTATION: Normal. No transitional anatomy. ALIGNMENT: Normal. VERTEBRAL BODIES: No fractures. No dislocation. No acute findings. DISCS: High-grade disc space loss of height with vacuum disc phenomenon at L3-4 T12-L1 is unremarkable. At L1-2, moderate bilateral facet hypertrophy and mild diffuse posterior disc bulging cause mild bila teral foraminal narrowing. No central stenosis. At L2-3, mild diffuse posterior disc bulging and mild bilateral facet hypertrophy is present without significant central or foraminal stenosis. At L3-4, broad diffuse posterior disc bulge and bony spurring, bulky bilateral facet and ligament hyp ertrophy cause [id number] central canal stenosis. There is moderate left and mild right forami nal narrowing. At L4-5, bulky asymmetric right facet arthropathy is present with rightward disc bulge and bony spurr ing. This causes moderate to high-grade right L4-5 foraminal narrowing. No central stenosis or sign ificant left foraminal narrowing. At L5-S1, no central or foraminal stenosis is present. PEDICLES, TRANSVERSE PROCESSES: No fractures. No dislocation. No acute findings. FACETS, POSTERIOR ELEMENTS: No fractures. No dislocation. Very bulky bilateral facet arthropathy at L3-4 . HARDWARE: None in the spine. VISUALIZED RIBS: No fractures. SOFT TISSUES: Bilateral intrarenal nonobstructive less than 5 mm kidney stones. Fatty infiltration o f the liver. OTHER: No other significant finding. IMPRESSION: No acute fracture or malalignment multilevel degenerative changes as above. And TECHNICAL DOCUMENTATION: JOB ID: [id number] Quality ID # [id number]: Final reports with documentation of one or more dose reduction techniques (e.g., Au tomated exposure control, adjustment of the mA and/or kV according to patient size, use of iterative reconstruction technique) 2010 [employer]- All Rights Reserved Reading location - IP/workstation name: [id number]
[2019-11-10] MEDS ORDERED: IPRATROPIUM/ALBUTEROL 0.5-2.5 MG/3 ML AMPUL NEB PRN (18:23)
--- NOTE | 2019-11-10 18:44 | PDOC H&P ---
History of Present Illness Admission Date/PCP: 11/10/19 16:03 SAMMY URIBE NP Patient complains of: To the emergency room apparently with complaints of fall almost falling down today. She said she had gotten up to go to the bathroom. Her home health nurse was in attendance. She took a few steps and she basically fell although her head did not hit the floor as she was assisted to the floor History of Present Illness: KAMINI FERNANDEZ is a 69 year old female. Also complains of sudden numbness and tingling of her lower extremity and unable to ambulate even in the ED they were unable to stand up I requested for an MRI to be done unfortunately the MRI machine is down and this could not be obtained and as such a CT scan was done. This showed broad diffuse disc bulge at several levels with multilevel degenerative changes but no significant mass. Patient says she has persistent numbness and tingling in her lower extremities. She also has what appears to be a right foot drop although she says this is not new. She will need an MRI but there is none that available. This will have to be subsequently obtained. Patient has a history of atrial fibrillation for which he takes Xarelto. She did not hit her head as she was assisted to the floor. However a CT scan of the brain still needs to be done and this will be ordered for tomorrow There was no loss of consciousness, no nausea vomiting chest pain. There was no significant arrhythmia identified on EKG or telemetry. In fact she is currently in sinus rhythm. Past Medical History Cardiac Medical History: Reports: Atrial Fibrillation, Hypertension Denies: Myocardial Infarction Pulmonary Medical History: Denies: Asthma Neurological Medical History: Denies: Seizures GI Medical History: Reports: Hiatal Hernia Denies: Hepatitis Hematology: Denies: Anemia, Sickle Cell Disease Past Surgical History Past Surgical History: Reports: Herniorrhaphy, Hysterectomy Denies: Amputation, Mastectomy, Pacemaker Social History Information Source: Patient Lives with: Family Smoking Status: Never Smoker Frequency of Alcohol Use: Occasional Hx Recreational Drug Use: No Hx Prescription Drug Abuse: No - Advance Directive Resuscitation Status: Full Code Family History Family History: Reviewed & Not Pertinent Parental Family History Reviewed: Yes Children Family History Reviewed: Yes Sibling(s) Family History Reviewed.: Yes Medication/Allergy Home Medications: Bimatoprost [Lumigan 0.01% Oph Soln 2.5 ml/Bottle] 1 drop OU BID 08/05/19 Butalb/Acetaminophen/Caffeine [Fioricet (50-325-40 mg) Tablet] 1 tab PO Q8HP PRN 08/05/19 Calcium Carbonate/Vitamin D3 [Os-Raffaele 500-Vit D3 200 Caplet] 1 tab PO DAILY 08/05/19 Cholecalciferol (Vitamin D3) [Vitamin D3 1000 Unit Tablet] 2,000 unit PO DAILY 08/05/19 Diltiazem HCl [Cardizem Cd 120 mg Capsule] 120 mg PO DAILY 08/05/19 Milk Thistle 150 mg PO DAILY 08/05/19 Omeprazole 20 mg PO QPM 08/05/19 Psyllium Husk (with Sugar) [Metamucil Packet] 3.4 gm PO DAILYP PRN 08/05/19 Rivaroxaban [Xarelto] 20 mg PO QPM 08/05/19 Sotalol HCl [Betapace] 120 mg PO BID 08/05/19 Tramadol HCl [Ultram 50 mg Tablet] 50 mg PO Q6HP PRN 08/05/19 Acetaminophen [Tylenol 325 mg Tablet] 650 mg PO Q4HP PRN tablet 08/20/19 Budesonide/Formoterol Fumarate [Symbicort Hfa 80-4.5 Mcg Inhaler 6.9 gm] 2 puff IH Q12 15 Days #1 inhaler 08/20/19 Docusate Sodium [Colace 100 mg Capsule] 100 mg PO DAILY capsule 08/20/19 Furosemide [Lasix 40 mg Tablet] 40 mg PO QAM 14 Days #14 tablet 08/20/19 Guaifenesin [Mucinex Sr 600 mg Tablet.sa] 600 mg PO Q12 tablet.sa 08/20/19 Potassium Chloride [Klor-Con 10 Meq Tablet ER] 20 meq PO DAILY 14 Days #14 tablet.er 08/20/19 Rivaroxaban [Xarelto 10 mg Tablet] 20 mg PO WSUPPER tablet 08/20/19 Allergies/Adverse Reactions: Sulfa (Sulfonamide Antibiotics) Allergy (Verified 08/05/19 07:53) RASH Review of Systems Constitutional: ABSENT: chills, fever(s), headache(s), weight gain, weight loss Eyes: ABSENT: visual disturbances Ears: ABSENT: hearing changes Nose, Mouth, and Throat: ABSENT: headache(s) Cardiovascular: ABSENT: chest pain, dyspnea on exertion, edema, orthropnea, palpitations Respiratory: ABSENT: cough, hemoptysis Gastrointestinal: ABSENT: abdominal pain, constipation, diarrhea, hematemesis, hematochezia, nausea, vomiting Genitourinary: ABSENT: dysuria, hematuria Musculoskeletal: ABSENT: joint swelling Integumentary: ABSENT: rash, wounds Neurological: PRESENT: frequent falls, numbness, paresthesias, syncope, tingling. ABSENT: abnormal gait, abnormal speech, confusion, dizziness, focal weakness, vertigo, weakness Psychiatric: ABSENT: anxiety, depression, homidical ideation, suicidal ideation Endocrine: ABSENT: cold intolerance, heat intolerance, polydipsia, polyuria Hematologic/Lymphatic: ABSENT: easy bleeding, easy bruising Physical Exam Vital Signs: Temp Pulse Resp BP Pulse Ox 98.4 F 86 16 110/56 L 98 11/10/19 12:49 11/10/19 15:27 11/10/19 17:09 11/10/19 16:00 11/10/19 17:09 Intake & Output 11/09/19 11/10/19 11/11/19 06:59 06:59 06:59 Intake Total 550 Balance 550 Weight 122.6 kg General appearance: PRESENT: no acute distress, morbidly obese, well-developed, well-nourished Head exam: PRESENT: atraumatic, normocephalic Eye exam: PRESENT: conjunctiva pink, EOMI, PERRLA. ABSENT: scleral icterus Ear exam: PRESENT: normal external ear exam Mouth exam: PRESENT: moist, tongue midline Neck exam: ABSENT: carotid bruit, JVD, lymphadenopathy, thyromegaly Respiratory exam: PRESENT: clear to auscultation aroldo. ABSENT: rales, rhonchi, wheezes Cardiovascular exam: PRESENT: RRR, +S1, +S2. ABSENT: diastolic murmur, rubs, systolic murmur Pulses: PRESENT: normal dorsalis pedis pul Vascular exam: PRESENT: normal capillary refill GI/Abdominal exam: PRESENT: normal bowel sounds, soft. ABSENT: distended, guarding, mass, organolmegaly, rebound, tenderness Rectal exam: PRESENT: deferred Extremities exam: PRESENT: full ROM. ABSENT: calf tenderness, clubbing, pedal edema Neurological exam: PRESENT: alert, awake, oriented to person, oriented to place, oriented to time, oriented to situation, abnormal gait - unable to test, motor sensory deficit - Weakness bilateral LE R foot drop Strength 1/5. ABSENT: reflexes normal Psychiatric exam: PRESENT: appropriate affect, normal mood. ABSENT: homicidal ideation, suicidal ideation Skin exam: PRESENT: dry, intact, warm. ABSENT: cyanosis, rash Results Laboratory Results: 11/10/19 12:55 11/10/19 12:55 11/10/19 11/10/19 11/10/19 12:55 12:55 15:25 WBC 5.9 RBC 3.81 Hgb 11.6 L Hct 34.7 L MCV 91 MCH 30.6 MCHC 33.5 RDW 19.2 H Plt Count 246 Seg Neutrophils % 72.8 Sodium 138.4 Potassium 3.9 Chloride 103 Carbon Dioxide 28 Anion Gap 7 BUN 9 Creatinine 0.43 L Est GFR ( Amer) > 60 Glucose 98 Calcium 8.2 L Total Bilirubin 0.9 AST 51 H Alkaline Phosphatase 66 Total Protein 5.7 L Albumin 2.6 L Urine Color AMANDEEP Urine Appearance CLOUDY Urine pH 7.0 Ur Specific [place] 1.015 Urine Protein 30 H Urine Glucose (UA) NEGATIVE Urine Ketones NEGATIVE Urine Blood NEGATIVE Urine Nitrite POSITIVE H Ur Leukocyte Esterase LARGE H Urine WBC (Auto) >182 Urine RBC (Auto) 9 11/10/19 11/10/19 12:55 12:55 Creatine Kinase 22 L CK-MB (CK-2) 0.34 Troponin I < 0.012 Impressions: Chest X-Ray 11/10/19 14:34 IMPRESSION: NO ACUTE RADIOGRAPHIC FINDING IN THE CHEST. Lumbar Spine CT 11/10/19 16:44 IMPRESSION: No acute fracture or malalignment multilevel degenerative changes as above. And Assessment and Plan - Diagnosis (1) Numbness and tingling of both legs Is this a current diagnosis for this admission?: Yes Plan: Please see discussion above. Patient will need MRI subsequently. She presents with acute onset numbness and tingling. Plain CT reveals no acute findings. Patient will also be ordered for physical therapy and we will reassess (2) Paroxysmal A-fib Is this a current diagnosis for this admission?: Yes Plan: Patient is currently in sinus rhythm. I will continue her sotalol and Xarelto. Other medications will be continued once reconciled (3) Syncope and collapse Is this a current diagnosis for this admission?: Yes Plan: Patient did state that she never really passed out. She did slide to the floor. (4) UTI (urinary tract infection) Qualifiers: Urinary tract infection type: acute cystitis Hematuria presence: with hematuria Qualified Code(s): N30.01 - Acute cystitis with hematuria Is this a current diagnosis for this admission?: Yes Plan: She has a urinary tract infection. She will be placed on ceftriaxone pending culture results (5) Morbid obesity with BMI of 40.0-44.9, adult Is this a current diagnosis for this admission?: Yes Plan: Patient needs to lose weight - Time Time Spent with patient: 35 or more minutes Anticipated discharge: Home Within: within 72 hours - Inpatient Certification Based on my medical assessment, after consideration of the patient's comorbidities, presenting symptoms, or acuity I expect that the services needed warrant INPATIENT care.: Yes Medical Necessity: Risk of Complication if Not Cared For in Hospital, Risk of Diagnosis Which Will Require Inpatient Eval/Care/Monitoring
--- NOTE | 2019-11-10 18:45 | ADVANCED CARE ---
- Diagnosis (1) Numbness and tingling of both legs Diagnosis Current: Yes (2) Paroxysmal A-fib Diagnosis Current: Yes (3) Syncope and collapse Diagnosis Current: Yes (4) UTI (urinary tract infection) Diagnosis Current: Yes (5) Morbid obesity with BMI of 40.0-44.9, adult Diagnosis Current: Yes Resuscitation Status: Full Code Discussion: Carole with patient. She wants to be full code. Order placed in chart Time Spent: 10 minutes
--- NOTE | 2019-11-10 20:03 | EKG REPORT ---
SEVERITY:- OTHERWISE NORMAL ECG - SINUS RHYTHM LOW VOLTAGE IN FRONTAL LEADS : Confirmed by: Elodia Ferreira MD 10-Nov-2019 20:02:07
[2019-11-10] MEDS: RIVAROXABAN 10 MG TABLET PO SCH (20:28)
[2019-11-10] MEDS: RINGERS SOLUTION,LACTATED 1,000 ML IV PRN (20:29)
[2019-11-10] MEDS: SOTALOL HCL 80 MG TABLET PO SCH (21:40)
[2019-11-10] MEDS: OXYCODONE-ACETAMINOPHEN 5-325 MG TABLET PO PRN (21:40)
[2019-11-11 05:37] LABS: ANION GAP 7 (5-19); BLOOD UREA NITROGEN 8 mg/dL (7-20); CALCIUM 8.1 mg/dL (8.4-10.2); CARBON DIOXIDE 26 mmol/L (22-30); CHLORIDE 105 mmol/L (98-107); GLUCOSE 104 mg/dL (75-110); POTASSIUM 3.8 mmol/L (3.6-5.0)
[2019-11-11 05:38] LABS: HEMATOCRIT 32.6 % (36.0-47.0); HEMOGLOBIN 10.6 g/dL (12.0-15.5); MEAN CORPUSCULAR HEMOGLOBIN 29.9 pg (27.0-33.4); MEAN CORPUSCULAR HGB CONC 32.6 g/dL (32.0-36.0); MEAN CORPUSCULAR VOLUME 92 fl (80-97); PLATELET COUNT 221 10^3/uL (150-450); RED BLOOD COUNT 3.56 10^6/uL (3.72-5.28); RED CELL DISTRIBUTION WIDTH 19.7 % (11.5-14.0); WHITE BLOOD COUNT 5.2 10^3/uL (4.0-10.5)
[2019-11-11] MEDS: OXYCODONE-ACETAMINOPHEN 5-325 MG TABLET PO PRN (06:02)
[2019-11-11] MEDS: SOTALOL HCL 80 MG TABLET PO SCH ×2 (09:09→21:47)
[2019-11-11] MEDS: CEFTRIAXONE 1 GM/D5W RTU 1 GM/50 ML RTUPB IV SCH (09:09)
[2019-11-11] MEDS: DOCUSATE SODIUM 100 MG CAPSULE PO SCH (09:09)
[2019-11-11] MEDS: RINGERS SOLUTION,LACTATED 1,000 ML IV PRN ×2 (09:11→21:49)
--- NOTE | 2019-11-11 13:57 | PDOC PROGRESS REPORT ---
Subjective Progress Note for:: 11/11/19 Subjective:: Patient is able to move her legs and wiggle her toes today. Reason For Visit: SYNCOPE AND COLLAPSE,RECURRENT UTI(URINARY TRACT Physical Exam Vital Signs: Temp Pulse Resp BP Pulse Ox 97.9 F 75 16 109/61 100 11/11/19 11:37 11/11/19 11:37 11/11/19 11:37 11/11/19 11:37 11/11/19 11:37 Intake & Output 11/10/19 11/11/19 11/12/19 06:59 06:59 06:59 Intake Total 1795 50 Balance 1795 50 Weight 122.6 kg General appearance: PRESENT: no acute distress, morbidly obese, well-developed Head exam: PRESENT: atraumatic, normocephalic Eye exam: PRESENT: conjunctiva pink, EOMI, PERRLA. ABSENT: scleral icterus Ear exam: PRESENT: normal external ear exam Mouth exam: PRESENT: moist, tongue midline Neck exam: ABSENT: carotid bruit, JVD, lymphadenopathy, thyromegaly Respiratory exam: PRESENT: clear to auscultation aroldo. ABSENT: rales, rhonchi, wheezes Cardiovascular exam: PRESENT: RRR, +S1, +S2. ABSENT: diastolic murmur, rubs, systolic murmur Pulses: PRESENT: normal dorsalis pedis pul Vascular exam: PRESENT: normal capillary refill GI/Abdominal exam: PRESENT: normal bowel sounds, soft. ABSENT: distended, guarding, mass, organolmegaly, rebound, tenderness Rectal exam: PRESENT: deferred Extremities exam: PRESENT: full ROM. ABSENT: calf tenderness, clubbing, pedal edema Neurological exam: PRESENT: alert, awake, oriented to person, oriented to place, oriented to time, oriented to situation, CN II-XII grossly intact, motor sensory deficit - strength 2/5 LE Foot drop R foot Psychiatric exam: PRESENT: appropriate affect, normal mood. ABSENT: homicidal ideation, suicidal ideation Skin exam: PRESENT: dry, intact, warm. ABSENT: cyanosis, rash Results Laboratory Results: 11/11/19 04:37 11/11/19 04:37 11/10/19 11/11/19 11/11/19 15:25 04:37 04:37 WBC 5.2 RBC 3.56 L Hgb 10.6 L Hct 32.6 L MCV 92 MCH 29.9 MCHC 32.6 RDW 19.7 H Plt Count 221 Sodium 138.2 Potassium 3.8 Chloride 105 Carbon Dioxide 26 Anion Gap 7 BUN 8 Creatinine 0.44 L Est GFR ( Amer) > 60 Glucose 104 Calcium 8.1 L Urine Color AMANDEEP Urine Appearance CLOUDY Urine pH 7.0 Ur Specific Clare 1.015 Urine Protein 30 H Urine Glucose (UA) NEGATIVE Urine Ketones NEGATIVE Urine Blood NEGATIVE Urine Nitrite POSITIVE H Ur Leukocyte Esterase LARGE H Urine WBC (Auto) >182 Urine RBC (Auto) 9 11/10/19 11/10/19 12:55 12:55 Creatine Kinase 22 L CK-MB (CK-2) 0.34 Troponin I < 0.012 Impressions: Chest X-Ray 11/10/19 14:34 IMPRESSION: NO ACUTE RADIOGRAPHIC FINDING IN THE CHEST. Lumbar Spine CT 11/10/19 16:44 IMPRESSION: No acute fracture or malalignment multilevel degenerative changes as above. And Assessment and Plan - Diagnosis (1) Numbness and tingling of both legs Is this a current diagnosis for this admission?: Yes Plan: Patient is to have an MRI done as outpatient. CT scan showed several multilevel degeneration. Patient tells me that she has not seen an orthopedist for a while and that she definitely will need follow-up as outpatient. Awaiting physical therapy evaluation as patient has been unable to ambulate or even stand up (2) Paroxysmal A-fib Is this a current diagnosis for this admission?: Yes (3) Syncope and collapse Is this a current diagnosis for this admission?: Yes (4) UTI (urinary tract infection) Qualifiers: Urinary tract infection type: acute cystitis Hematuria presence: with hematuria Qualified Code(s): N30.01 - Acute cystitis with hematuria Is this a current diagnosis for this admission?: Yes Plan: Continue with ceftriaxone empirically and follow-up with urine culture (5) Morbid obesity with BMI of 40.0-44.9, adult Is this a current diagnosis for this admission?: Yes (6) Hypotension Qualifiers: Hypotension type: unspecified hypotension type Qualified Code(s): I95.9 - Hypotension, unspecified Is this a current diagnosis for this admission?: Yes Plan: Most likely patient has some autonomic dysfunction leading to her hypotension which is asymptomatic. She is on sotalol as well as diltiazem for atrial fibrillation. We will continue both medicines cautiously and adjust as needed - Time Time Spent with patient: 25-34 minutes Anticipated discharge: Home Within: within 24 hours
[2019-11-11] MEDS: RIVAROXABAN 10 MG TABLET PO SCH (17:53)
[2019-11-11] MEDS: TIMOLOL MALEATE 0.5% OPH SOLN 5 ML OU SCH (18:10)
[2019-11-11] MEDS: FLUTICASONE/VILANTEROL 100-25 MCG/DOSE IH SCH (18:10)
[2019-11-11] MEDS: BRIMONIDINE TARTRATE 0.2% OPH SOLN 5 ML OU SCH (18:11)
[2019-11-11] MEDS: DILTIAZEM HCL 30 MG TABLET PO SCH (21:48)
[2019-11-12] MEDS: OXYCODONE-ACETAMINOPHEN 5-325 MG TABLET PO PRN ×3 (00:02→19:49)
[2019-11-12] MEDS: SOTALOL HCL 80 MG TABLET PO SCH ×2 (09:33→23:36)
[2019-11-12] MEDS: CALCIUM CARBONATE 600 MG/VITAMIN D3 400 UNIT TABLET PO SCH (09:33)
[2019-11-12] MEDS: CHOLECALCIFEROL (D3) 1,000 UNIT (25 MCG) TABLET PO SCH (09:34)
[2019-11-12] MEDS: DOCUSATE SODIUM 100 MG CAPSULE PO SCH (09:34)
[2019-11-12] MEDS: DILTIAZEM HCL 30 MG TABLET PO SCH ×2 (09:34→23:36)
[2019-11-12] MEDS: CEFTRIAXONE 1 GM/D5W RTU 1 GM/50 ML RTUPB IV SCH (09:35)
[2019-11-12] MEDS: RINGERS SOLUTION,LACTATED 1,000 ML IV PRN ×2 (09:36→19:49)
[2019-11-12] MEDS: TIMOLOL MALEATE 0.5% OPH SOLN 5 ML OU SCH ×2 (09:46→18:12)
[2019-11-12] MEDS: BRIMONIDINE TARTRATE 0.2% OPH SOLN 5 ML OU SCH ×2 (09:47→18:10)
[2019-11-12] MEDS: FLUTICASONE/VILANTEROL 100-25 MCG/DOSE IH SCH (09:48)
[2019-11-12] MEDS ORDERED: (PENDING PHARMACY ID) (Calcium Carbonate/Vitamin D3 [Os-Cal 500-Vit D3 200 Caplet] 1 TAB) PO SCH (10:00)
--- NOTE | 2019-11-12 12:17 | PDOC PROGRESS REPORT ---
Subjective Progress Note for:: 11/12/19 Subjective:: Patient is able to move her legs and wiggle her toes today. Still has numbness and tingling Sitting up in bed Unable to ambulate still C/o diarrhea Reason For Visit: URINARY TRACT INFECTION,NUMBNESS AND TINGLING, Physical Exam Vital Signs: Temp Pulse Resp BP Pulse Ox 97.5 F 75 18 109/62 98 11/12/19 07:28 11/12/19 07:28 11/12/19 07:28 11/12/19 07:28 11/12/19 07:28 Intake & Output 11/11/19 11/12/19 11/13/19 06:59 06:59 06:59 Intake Total 1795 2620 1000 Balance 1795 2620 1000 Weight 122.6 kg 122.3 kg General appearance: PRESENT: no acute distress, morbidly obese, well-developed Head exam: PRESENT: atraumatic Eye exam: PRESENT: conjunctiva pink, EOMI, PERRLA. ABSENT: scleral icterus Ear exam: PRESENT: normal external ear exam Mouth exam: PRESENT: moist, tongue midline Neck exam: ABSENT: carotid bruit, JVD, lymphadenopathy, thyromegaly Respiratory exam: PRESENT: clear to auscultation aroldo. ABSENT: rales, rhonchi, wheezes Cardiovascular exam: PRESENT: RRR. ABSENT: diastolic murmur, rubs, systolic murmur Pulses: PRESENT: normal dorsalis pedis pul Vascular exam: PRESENT: normal capillary refill GI/Abdominal exam: PRESENT: normal bowel sounds, soft. ABSENT: distended, guarding, mass, organolmegaly, rebound, tenderness Rectal exam: PRESENT: deferred Extremities exam: PRESENT: full ROM. ABSENT: calf tenderness, clubbing, pedal edema Neurological exam: PRESENT: alert, awake, oriented to person, oriented to place, oriented to time, oriented to situation, CN II-XII grossly intact. ABSENT: motor sensory deficit Psychiatric exam: PRESENT: appropriate affect, normal mood. ABSENT: homicidal ideation, suicidal ideation Skin exam: PRESENT: dry, intact, warm. ABSENT: cyanosis, rash Results Laboratory Results: 11/11/19 04:37 11/11/19 04:37 11/10/19 11/10/19 12:55 12:55 Creatine Kinase 22 L CK-MB (CK-2) 0.34 Troponin I < 0.012 Impressions: Chest X-Ray 11/10/19 14:34 IMPRESSION: NO ACUTE RADIOGRAPHIC FINDING IN THE CHEST. Lumbar Spine CT 11/10/19 16:44 IMPRESSION: No acute fracture or malalignment multilevel degenerative changes as above. And Assessment and Plan - Diagnosis (1) Numbness and tingling of both legs Is this a current diagnosis for this admission?: Yes Plan: Patient is to have an MRI done as outpatient. CT scan showed several multilevel degeneration. Patient tells me that she has not seen an orthopedist for a while and that she definitely will need follow-up as outpatient. Awaiting physical therapy evaluation as patient has been unable to ambulate or even stand up 11/11 She still needs MRI to be done as she is still symptomatic, numbness and tingling and dizziness (2) Paroxysmal A-fib Is this a current diagnosis for this admission?: Yes (3) Syncope and collapse Is this a current diagnosis for this admission?: Yes (4) UTI (urinary tract infection) Qualifiers: Urinary tract infection type: acute cystitis Hematuria presence: with hematuria Qualified Code(s): N30.01 - Acute cystitis with hematuria Is this a current diagnosis for this admission?: Yes Plan: Continue empiric antibiotic (5) Morbid obesity with BMI of 40.0-44.9, adult Is this a current diagnosis for this admission?: Yes (6) Hypotension Qualifiers: Hypotension type: unspecified hypotension type Qualified Code(s): I95.9 - Hypotension, unspecified Is this a current diagnosis for this admission?: Yes Plan: Most likely patient has some autonomic dysfunction leading to her hypotension. She is asymptomatic. - Time Time Spent with patient: 15-24 minutes
[2019-11-12] MEDS: RIVAROXABAN 10 MG TABLET PO SCH (18:15)
[2019-11-13] MEDS: OXYCODONE-ACETAMINOPHEN 5-325 MG TABLET PO PRN ×3 (01:52→20:08)
[2019-11-13] MEDS: RINGERS SOLUTION,LACTATED 1,000 ML IV PRN ×2 (05:51→20:12)
[2019-11-13] MEDS: SOTALOL HCL 80 MG TABLET PO SCH ×2 (09:22→21:03)
[2019-11-13] MEDS: DILTIAZEM HCL 30 MG TABLET PO SCH (09:23)
[2019-11-13] MEDS: DOCUSATE SODIUM 100 MG CAPSULE PO SCH (09:23)
[2019-11-13] MEDS: CHOLECALCIFEROL (D3) 1,000 UNIT (25 MCG) TABLET PO SCH (09:23)
[2019-11-13] MEDS: CALCIUM CARBONATE 600 MG/VITAMIN D3 400 UNIT TABLET PO SCH (09:23)
[2019-11-13] MEDS: FLUTICASONE/VILANTEROL 100-25 MCG/DOSE IH SCH (09:24)
[2019-11-13] MEDS: TIMOLOL MALEATE 0.5% OPH SOLN 5 ML OU SCH ×2 (09:25→18:11)
[2019-11-13] MEDS: CEFTRIAXONE 1 GM/D5W RTU 1 GM/50 ML RTUPB IV SCH (09:25)
[2019-11-13] MEDS: BRIMONIDINE TARTRATE 0.2% OPH SOLN 5 ML OU SCH ×2 (09:25→18:11)
--- NOTE | 2019-11-13 15:31 | PDOC PROGRESS REPORT ---
Subjective Progress Note for:: 11/13/19 Subjective:: Patient is able to move her legs and wiggle her toes today. Still has numbness and tingling Still unable to ambulate He also has numbness in her fingertips Reason For Visit: UTI NUMBNESS AND TINGLING PRESYNCOPE Physical Exam Vital Signs: Temp Pulse Resp BP Pulse Ox 98.0 F 67 20 77/47 L 93 11/13/19 11:43 11/13/19 11:43 11/13/19 11:43 11/13/19 11:43 11/13/19 11:43 Intake & Output 11/12/19 11/13/19 11/14/19 06:59 06:59 06:59 Intake Total 2620 3826 410 Output Total 500 Balance 2620 3326 410 Weight 122.3 kg 124.5 kg General appearance: PRESENT: no acute distress, morbidly obese Head exam: PRESENT: atraumatic, normocephalic Eye exam: PRESENT: conjunctiva pink, EOMI, PERRLA. ABSENT: scleral icterus Mouth exam: PRESENT: moist, tongue midline Neck exam: ABSENT: carotid bruit, JVD, lymphadenopathy, thyromegaly Respiratory exam: PRESENT: clear to auscultation aroldo. ABSENT: rales, rhonchi, wheezes Cardiovascular exam: PRESENT: RRR, +S1, +S2. ABSENT: diastolic murmur, rubs, systolic murmur Pulses: PRESENT: normal dorsalis pedis pul Vascular exam: PRESENT: normal capillary refill GI/Abdominal exam: PRESENT: normal bowel sounds, soft. ABSENT: distended, guarding, mass, organolmegaly, rebound, tenderness Rectal exam: PRESENT: deferred Extremities exam: PRESENT: full ROM. ABSENT: calf tenderness, clubbing, pedal edema Musculoskeletal exam: ABSENT: ambulatory Neurological exam: PRESENT: alert, awake, oriented to person, oriented to place, oriented to time, oriented to situation, motor sensory deficit - Strength is 2/5 in lower extremity. She is unable to hold her legs up. Sensation to touch is intact however she continues to complain of numbness and tingling Psychiatric exam: PRESENT: appropriate affect, normal mood. ABSENT: homicidal ideation, suicidal ideation Skin exam: PRESENT: dry, intact, warm. ABSENT: cyanosis, rash Results Laboratory Results: 11/11/19 04:37 11/11/19 04:37 11/11/19 15:17 Clean Catch Midstream Urine Culture - Final 2,000 col/ml 11/10/19 11/10/19 12:55 12:55 Creatine Kinase 22 L CK-MB (CK-2) 0.34 Troponin I < 0.012 Impressions: Chest X-Ray 11/10/19 14:34 IMPRESSION: NO ACUTE RADIOGRAPHIC FINDING IN THE CHEST. Lumbar Spine CT 11/10/19 16:44 IMPRESSION: No acute fracture or malalignment multilevel degenerative changes as above. And Assessment and Plan - Diagnosis (1) Numbness and tingling of both legs Is this a current diagnosis for this admission?: Yes Plan: Patient is to have an MRI done as outpatient. CT scan showed several multilevel degeneration. Patient tells me that she has not seen an orthopedist for a while and that she definitely will need follow-up as outpatient. Awaiting physical therapy evaluation as patient has been unable to ambulate or even stand up 11/11 She still needs MRI to be done as she is still symptomatic, numbness and tingling and dizziness 11/12 numbness and tingling persistent. Patient denies muscle weakness. She is still unable to ambulate. We still do not have MRI which this patient certainly needs prior to discharge (2) Paroxysmal A-fib Is this a current diagnosis for this admission?: Yes Plan: Remains in sinus rhythm (3) Syncope and collapse Is this a current diagnosis for this admission?: Yes Plan: Secondary to her inability to ambulate radiology was no true syncope (4) UTI (urinary tract infection) Qualifiers: Urinary tract infection type: acute cystitis Hematuria presence: with hematuria Qualified Code(s): N30.01 - Acute cystitis with hematuria Is this a current diagnosis for this admission?: Yes Plan: Urine culture insignificant. We will continue with empiric antibiotics for total of 5 days (5) Morbid obesity with BMI of 40.0-44.9, adult Is this a current diagnosis for this admission?: Yes (6) Hypotension Qualifiers: Hypotension type: unspecified hypotension type Qualified Code(s): I95.9 - Hypotension, unspecified Is this a current diagnosis for this admission?: Yes Plan: Likely secondary to autonomic dysfunction. Patient is asymptomatic. Will ensure that the correct cough is used as patient is pretty obese Will start on Midodrine - Plan Summary Summary: Awaiting MRI to be done for further evaluation. - Inpatient Certification Based on my medical assessment, after consideration of the patient's co morbidities, presenting symptoms, or acuity I expect that the services needed warrant INPATIENT care.: Yes Medical Necessity: Risk of Complication if Not Cared For in Hospital, Risk of Diagnosis Which Will Require Inpatient Eval/Care/Monitoring
[2019-11-13] MEDS: RIVAROXABAN 10 MG TABLET PO SCH (18:11)
[2019-11-13] MEDS: MIDODRINE HCL 5 MG TABLET PO SCH (18:12)
[2019-11-14] MEDS: OXYCODONE-ACETAMINOPHEN 5-325 MG TABLET PO PRN ×2 (04:27→20:18)
[2019-11-14] MEDS: RINGERS SOLUTION,LACTATED 1,000 ML IV PRN (04:31)
[2019-11-14 06:18] LABS: ABSOLUTE EOSINOPHILS # (AUTO) 0.1 10^3/uL (0.0-0.6); ABSOLUTE MONOCYTES (AUTO) 0.4 10^3/uL (0.1-1.4); ABSOLUTE NEUT (AUTO) 2.1 10^3/uL (1.7-8.2); BASOPHILS % (AUTO) 0.6 % (0-2); EOSINOPHILS % (AUTO) 1.8 % (0-6); HEMATOCRIT 31.3 % (36.0-47.0); HEMOGLOBIN 10.5 g/dL (12.0-15.5); LYMPHOCYTES % (AUTO) 28.5 % (13-45); MEAN CORPUSCULAR HEMOGLOBIN 30.5 pg (27.0-33.4); MEAN CORPUSCULAR HGB CONC 33.5 g/dL (32.0-36.0); MEAN CORPUSCULAR VOLUME 91 fl (80-97); MONOCYTES % (AUTO) 12.4 % (3-13); PLATELET COUNT 171 10^3/uL (150-450); RED BLOOD COUNT 3.44 10^6/uL (3.72-5.28); RED CELL DISTRIBUTION WIDTH 19.4 % (11.5-14.0); SEGMENTED NEUTROPHILS % (AUTO) 56.7 % (42-78); TOTAL CELLS COUNTED % (AUTO) 100 %; WHITE BLOOD COUNT 3.6 10^3/uL (4.0-10.5)
[2019-11-14 06:33] LABS: ANION GAP 5 (5-19); BLOOD UREA NITROGEN 4 mg/dL (7-20); CALCIUM 8.2 mg/dL (8.4-10.2); CARBON DIOXIDE 29 mmol/L (22-30); CHLORIDE 105 mmol/L (98-107); GLUCOSE 79 mg/dL (75-110); POTASSIUM 3.9 mmol/L (3.6-5.0)
[2019-11-14] MEDS: MIDODRINE HCL 5 MG TABLET PO SCH ×2 (09:25→17:02)
[2019-11-14] MEDS: FLUTICASONE/VILANTEROL 100-25 MCG/DOSE IH SCH ×2 (09:25→09:33)
[2019-11-14] MEDS: DILTIAZEM HCL 30 MG TABLET PO SCH (09:26)
[2019-11-14] MEDS: CEFTRIAXONE 1 GM/D5W RTU 1 GM/50 ML RTUPB IV SCH (09:26)
[2019-11-14] MEDS: DOCUSATE SODIUM 100 MG CAPSULE PO SCH (09:26)
[2019-11-14] MEDS: CHOLECALCIFEROL (D3) 1,000 UNIT (25 MCG) TABLET PO SCH (09:27)
[2019-11-14] MEDS: SOTALOL HCL 80 MG TABLET PO SCH ×2 (09:27→21:19)
[2019-11-14] MEDS: TIMOLOL MALEATE 0.5% OPH SOLN 5 ML OU SCH ×2 (09:27→17:00)
[2019-11-14] MEDS: BRIMONIDINE TARTRATE 0.2% OPH SOLN 5 ML OU SCH ×2 (09:27→17:00)
[2019-11-14] MEDS: CALCIUM CARBONATE 600 MG/VITAMIN D3 400 UNIT TABLET PO SCH (09:27)
--- NOTE | 2019-11-14 12:42 | PDOC PROGRESS REPORT ---
Subjective Progress Note for:: 11/14/19 Subjective:: Patient is able to move her legs and wiggle her toes today. Still has numbness and tingling Still unable to ambulate He also has numbness in her fingertips 11/13 Patient feels the same, still lower extremity numbness and tingling Reason For Visit: UTI NUMBNESS AND TINGLING PRESYNCOPE Physical Exam Vital Signs: Temp Pulse Resp BP Pulse Ox 98.3 F 81 16 113/68 97 11/14/19 07:21 11/14/19 07:21 11/14/19 07:21 11/14/19 07:21 11/14/19 07:21 Intake & Output 11/13/19 11/14/19 11/15/19 06:59 06:59 06:59 Intake Total 3826 2822 767 Output Total 500 Balance 3326 2822 767 Weight 124.5 kg 124.9 kg General appearance: PRESENT: no acute distress, morbidly obese, well-nourished Head exam: PRESENT: atraumatic Eye exam: PRESENT: conjunctiva pink, PERRLA. ABSENT: scleral icterus Ear exam: PRESENT: normal external ear exam Mouth exam: PRESENT: moist, tongue midline Neck exam: ABSENT: carotid bruit, JVD, lymphadenopathy, thyromegaly Respiratory exam: PRESENT: clear to auscultation aroldo. ABSENT: rales, rhonchi, wheezes Cardiovascular exam: PRESENT: RRR, +S1, +S2. ABSENT: diastolic murmur, rubs, systolic murmur Pulses: PRESENT: normal dorsalis pedis pul Vascular exam: PRESENT: normal capillary refill GI/Abdominal exam: PRESENT: normal bowel sounds, soft. ABSENT: distended, guarding, mass, organolmegaly, rebound, tenderness Rectal exam: PRESENT: deferred Extremities exam: PRESENT: full ROM. ABSENT: calf tenderness, clubbing, pedal edema, +1 edema, +2 edema Neurological exam: PRESENT: alert, awake, oriented to person, oriented to place, oriented to time, oriented to situation, CN II-XII grossly intact. ABSENT: motor sensory deficit Psychiatric exam: PRESENT: appropriate affect, normal mood. ABSENT: homicidal ideation, suicidal ideation Skin exam: PRESENT: dry, intact, warm. ABSENT: cyanosis, rash Results Laboratory Results: 11/14/19 05:51 11/14/19 05:51 11/14/19 11/14/19 05:51 05:51 WBC 3.6 L RBC 3.44 L Hgb 10.5 L Hct 31.3 L MCV 91 MCH 30.5 MCHC 33.5 RDW 19.4 H Plt Count 171 Seg Neutrophils % 56.7 Sodium 139.0 Potassium 3.9 Chloride 105 Carbon Dioxide 29 Anion Gap 5 BUN 4 L Creatinine 0.36 L Est GFR ( Amer) > 60 Glucose 79 Calcium 8.2 L 11/11/19 15:17 Clean Catch Midstream Urine Culture - Final 2,000 col/ml 11/10/19 11/10/19 12:55 12:55 Creatine Kinase 22 L CK-MB (CK-2) 0.34 Troponin I < 0.012 Impressions: Chest X-Ray 11/10/19 14:34 IMPRESSION: NO ACUTE RADIOGRAPHIC FINDING IN THE CHEST. Lumbar Spine CT 11/10/19 16:44 IMPRESSION: No acute fracture or malalignment multilevel degenerative changes as above. And Assessment and Plan - Diagnosis (1) Numbness and tingling of both legs Is this a current diagnosis for this admission?: Yes (2) Paroxysmal A-fib Is this a current diagnosis for this admission?: Yes (3) Syncope and collapse Is this a current diagnosis for this admission?: Yes (4) UTI (urinary tract infection) Qualifiers: Urinary tract infection type: acute cystitis Hematuria presence: with hematuria Qualified Code(s): N30.01 - Acute cystitis with hematuria Is this a current diagnosis for this admission?: Yes (5) Morbid obesity with BMI of 40.0-44.9, adult Is this a current diagnosis for this admission?: Yes (6) Hypotension Qualifiers: Hypotension type: unspecified hypotension type Qualified Code(s): I95.9 - Hypotension, unspecified Is this a current diagnosis for this admission?: Yes - Plan Summary Summary: Still awaiting MRI to be done for further evaluation. Blood pressure is improved today. I have decreased the diltiazem and she was also started on Midodrine. Still not able to get up and ambulate Perative to obtain MRI prior to discharge rule out underlying etiology - Time Time Spent with patient: 15-24 minutes Medications reviewed and adjusted accordingly: Yes
[2019-11-14] MEDS: RIVAROXABAN 10 MG TABLET PO SCH (16:53)
--- NOTE | 2019-11-15 07:28 | CDI QUERY ---
CDI Query CDI Review: Dear Provider: To better reflect your patients severity of illness, morbidity, and resource utilization Please specify and document in the Progress Notes and Discharge Summary if you are monitoring / treating / evaluating any of the following conditions: Query Clinical indicators Per Progress Notes: Patient with a history of Atrial fibrillation Please clarify if the Atrial Fibrillation can be further specified: Persistent atrial fibrillation Long standing persistent atrial fibrillation Chronic atrial fibrillation Permanent atrial fibrillation Other We are seeking further clarification of documentation to reflect the severity of illness of your patient. Per H&P: Cardiac Medical History: Reports: Atrial Fibrillation, Hypertension Diagnosis: Paroxysmal A-fib Home Meds: Diltiazem HCl [Cardizem Cd 120 mg Capsule] 120 mg PO DAILY 08/05/19 Rivaroxaban [Xarelto] 20 mg PO QPM 08/05/19 Atrial Fibrillation descriptors: Paroxysmal: defined as self-terminating or intermittent. Spontaneously resolves or within less than 7 days with intervention. Persistent: Fails to resolve or self-terminate. Often requires medication or electrical cardioversion to convert. Episodes lasting more than a week. Long-standing persistent / permanent: Atrial fibrillation lasting more than a year in a patient on rate-controlled medication , with no plans for conversion to sinus rhythm. Chronic: Atrial fibrillation of any type lasting more than 3 months. The terms probable, suspected, likely, possible or still to be ruled out may be used if you are unable to determine the exact nature of a condition. Thank you for your consideration, Clinical Documentation [facility] HALIAM Morrow RN, BSN RN Office [phone] Office [phone]
[2019-11-15] MEDS: BRIMONIDINE TARTRATE 0.2% OPH SOLN 5 ML OU SCH ×2 (09:05→17:19)
[2019-11-15] MEDS: TIMOLOL MALEATE 0.5% OPH SOLN 5 ML OU SCH ×2 (09:05→17:19)
[2019-11-15] MEDS: CALCIUM CARBONATE 600 MG/VITAMIN D3 400 UNIT TABLET PO SCH (09:06)
[2019-11-15] MEDS: MIDODRINE HCL 5 MG TABLET PO SCH (09:06)
[2019-11-15] MEDS: DOCUSATE SODIUM 100 MG CAPSULE PO SCH (09:06)
[2019-11-15] MEDS: CEFTRIAXONE 1 GM/D5W RTU 1 GM/50 ML RTUPB IV SCH (09:06)
[2019-11-15] MEDS: SOTALOL HCL 80 MG TABLET PO SCH ×2 (09:06→21:24)
[2019-11-15] MEDS: DILTIAZEM HCL 30 MG TABLET PO SCH (09:06)
[2019-11-15] MEDS: CHOLECALCIFEROL (D3) 1,000 UNIT (25 MCG) TABLET PO SCH (09:06)
[2019-11-15] MEDS: FLUTICASONE/VILANTEROL 100-25 MCG/DOSE IH SCH (09:07)
[2019-11-15] MEDS: OXYCODONE-ACETAMINOPHEN 5-325 MG TABLET PO PRN ×2 (10:41→20:18)
[2019-11-15] MEDS: ONDANSETRON 4 MG TAB.RAPDIS PO PRN (14:51)
--- NOTE | 2019-11-15 16:36 | PDOC PROGRESS REPORT ---
Subjective Progress Note for:: 11/15/19 Subjective:: Patient is able to move her legs and wiggle her toes today. Still has numbness and tingling Still unable to ambulate He also has numbness in her fingertips 11/13 Patient feels the same, still lower extremity numbness and tingling 11/14 patient states she feels better. She states that the numbness and tingling seem to have improved. The ones on the upper extremity, hands largely resolved. As she is still unable to stand up straight or ambulate. There is no inc ontinence that is new. She did state that she had some fecal incontinence or diarrhea for about 3 months but this is unchanged. At this time we are still awaiting MRI to be done and for patient to at least be able to stand up straight and ambulate Reason For Visit: UTI NUMBNESS AND TINGLING PRESYNCOPE Physical Exam Vital Signs: Temp Pulse Resp BP Pulse Ox 97.8 F 78 17 120/70 100 11/15/19 12:20 11/15/19 12:20 11/15/19 12:20 11/15/19 12:20 11/15/19 12:20 Intake & Output 11/14/19 11/15/19 11/16/19 06:59 06:59 06:59 Intake Total 2822 1847 587 Balance 2822 1847 587 Weight 124.9 kg 124.7 kg General appearance: PRESENT: no acute distress, morbidly obese, well-developed Head exam: PRESENT: atraumatic, normocephalic Eye exam: PRESENT: conjunctiva pink, EOMI, PERRLA. ABSENT: scleral icterus Neck exam: ABSENT: carotid bruit, JVD, lymphadenopathy, thyromegaly Respiratory exam: PRESENT: clear to auscultation aroldo. ABSENT: rales, rhonchi, wheezes Cardiovascular exam: PRESENT: RRR, +S1, +S2. ABSENT: diastolic murmur, rubs, systolic murmur Pulses: PRESENT: normal dorsalis pedis pul Vascular exam: PRESENT: normal capillary refill GI/Abdominal exam: PRESENT: normal bowel sounds, soft. ABSENT: distended, guarding, mass, organolmegaly, rebound, tenderness Rectal exam: PRESENT: deferred Extremities exam: PRESENT: full ROM. ABSENT: calf tenderness, clubbing, pedal edema Neurological exam: PRESENT: alert, awake, oriented to person, oriented to place, oriented to time, oriented to situation, motor sensory deficit - Strength about 2/5 Sensation appear to be intact Unable to check reflexes Psychiatric exam: PRESENT: appropriate affect, normal mood. ABSENT: homicidal ideation, suicidal ideation Skin exam: PRESENT: dry, intact, warm. ABSENT: cyanosis, rash Results Laboratory Results: 11/14/19 05:51 11/14/19 05:51 11/10/19 11/10/19 12:55 12:55 Creatine Kinase 22 L CK-MB (CK-2) 0.34 Troponin I < 0.012 Impressions: Chest X-Ray 11/10/19 14:34 IMPRESSION: NO ACUTE RADIOGRAPHIC FINDING IN THE CHEST. Lumbar Spine CT 11/10/19 16:44 IMPRESSION: No acute fracture or malalignment multilevel degenerative changes as above. And Assessment and Plan - Diagnosis (1) Numbness and tingling of both legs Is this a current diagnosis for this admission?: Yes (2) Paroxysmal A-fib Is this a current diagnosis for this admission?: Yes Plan: Remains in sinus rhythm Patient apparently has a history of atrial fibrillation however she has been in sinus rhythm since she has been in hospital. I am unable to quantify or define her atrial fibrillation any further. She has been on Xarelto, diltiazem and beta-blockers and this has been continued. The best I can say is this is a paroxysmal atrial fibrillation (3) Syncope and collapse Is this a current diagnosis for this admission?: Yes (4) UTI (urinary tract infection) Qualifiers: Urinary tract infection type: acute cystitis Hematuria presence: with hematuria Qualified Code(s): N30.01 - Acute cystitis with hematuria Is this a current diagnosis for this admission?: Yes Plan: Urine culture insignificant. We will continue with empiric antibiotics for total of 5 days, this can be dc on 11/17 or at dc (5) Morbid obesity with BMI of 40.0-44.9, adult Is this a current diagnosis for this admission?: Yes (6) Hypotension Qualifiers: Hypotension type: unspecified hypotension type Qualified Code(s): I95.9 - Hypotension, unspecified Is this a current diagnosis for this admission?: Yes Plan: I have DC the Midodrine as her BP has recovered. Her Diltiazem remains at 30mg daily, down from bid, this should be reassessed at DC - Plan Summary Summary: Still awaiting MRI to be done for further evaluation. Blood pressure is improved today. I have decreased the diltiazem and she was also started on Midodrine. Still not able to get up and ambulate imperative to obtain MRI prior to discharge rule out underlying etiology this is still pending as of now. - Time Time Spent with patient: 15-24 minutes
[2019-11-15] MEDS: RIVAROXABAN 10 MG TABLET PO SCH (17:19)
[2019-11-16] MEDS: OXYCODONE-ACETAMINOPHEN 5-325 MG TABLET PO PRN ×2 (02:29→19:56)
[2019-11-16] MEDS: CEFTRIAXONE 1 GM/D5W RTU 1 GM/50 ML RTUPB IV SCH (10:34)
[2019-11-16] MEDS: CALCIUM CARBONATE 600 MG/VITAMIN D3 400 UNIT TABLET PO SCH (10:34)
[2019-11-16] MEDS: DOCUSATE SODIUM 100 MG CAPSULE PO SCH (10:34)
[2019-11-16] MEDS: DILTIAZEM HCL 30 MG TABLET PO SCH (10:34)
[2019-11-16] MEDS: SOTALOL HCL 80 MG TABLET PO SCH ×2 (10:35→21:48)
[2019-11-16] MEDS: CHOLECALCIFEROL (D3) 1,000 UNIT (25 MCG) TABLET PO SCH (10:35)
[2019-11-16] MEDS: FLUTICASONE/VILANTEROL 100-25 MCG/DOSE IH SCH (10:35)
[2019-11-16] MEDS: TIMOLOL MALEATE 0.5% OPH SOLN 5 ML OU SCH ×2 (10:36→18:10)
[2019-11-16] MEDS: BRIMONIDINE TARTRATE 0.2% OPH SOLN 5 ML OU SCH ×2 (10:36→18:10)
[2019-11-16] MEDS: ONDANSETRON 4 MG TAB.RAPDIS PO PRN (11:22)
--- NOTE | 2019-11-16 14:22 | PDOC PROGRESS REPORT ---
Subjective Progress Note for:: 11/16/19 Subjective:: Subjective:: Patient is able to move her legs and wiggle her toes today. Still has numbness and tingling Still unable to ambulate He also has numbness in her fingertips 11/13 Patient feels the same, still lower extremity numbness and tingling 11/14 patient states she feels better. She states that the numbness and tingling seem to have improved. The ones on the upper extremity, hands largely resolved. As she is still unable to stand up straight or ambulate. There is no incontinence that is new. She did state that she had some fecal incontinence or diarrhea for about 3 months but this is unchanged. At this time we are still awaiting MRI to be done and for patient to at least be able to stand up straight and ambulate 11/16/2019: Patient was seen and examined. She is improving slowly. She still with significant weakness. She is obese. She is deconditioned. Reason For Visit: UTI NUMBNESS AND TINGLING PRESYNCOPE Physical Exam Vital Signs: Temp Pulse Resp BP Pulse Ox 98.0 F 87 16 110/68 100 11/16/19 11:28 11/16/19 11:28 11/16/19 11:28 11/16/19 11:28 11/16/19 11:28 Intake & Output 11/15/19 11/16/19 11/17/19 06:59 06:59 06:59 Intake Total 1847 1307 600 Balance 1847 1307 600 Weight 274 lb 14.663 oz 273 lb 5.971 oz Exam: General appearance: no acute distress, morbidly obese, well-developed Head exam: atraumatic, normocephalic Eye exam: conjunctiva pink, EOMI, PERRLA. No scleral icterus Neck exam: carotid bruit, JVD, lymphadenopathy, thyromegaly Respiratory exam: clear to auscultation aroldo. No rales, rhonchi, wheezes Cardiovascular exam: RRR, +S1, +S2. ABSENT: diastolic murmur, rubs, systolic murmur Pulses: normal dorsalis pedis pul Vascular exam: normal capillary refill GI/Abdominal exam: normal bowel sounds, soft. No distended, guarding, mass, organolmegaly, rebound, tenderness Rectal exam: deferred Extremities exam: full ROM. No calf tenderness, clubbing, pedal edema Neurological exam: alert, awake, oriented to person, oriented to place, oriented to time, oriented to situation, no sensory deficit. Generalized weakness. Psychiatric exam: appropriate affect, normal mood. No homicidal ideation, suicidal ideation Skin exam: dry, intact, warm. ABSENT: cyanosis, rash Results Laboratory Results: 11/14/19 05:51 11/14/19 05:51 11/10/19 11/10/19 12:55 12:55 Creatine Kinase 22 L CK-MB (CK-2) 0.34 Troponin I < 0.012 Impressions: Chest X-Ray 11/10/19 14:34 IMPRESSION: NO ACUTE RADIOGRAPHIC FINDING IN THE CHEST. Lumbar Spine CT 11/10/19 16:44 IMPRESSION: No acute fracture or malalignment multilevel degenerative changes as above. And Assessment and Plan - Plan Summary Summary: (1) Numbness and tingling of both legs Is this a current diagnosis for this admission?: Yes Pending MRI. CT scan was unremarkable. (2) Paroxysmal A-fib Is this a current diagnosis for this admission?: Yes Plan: Remains in sinus rhythm Patient apparently has a history of atrial fibrillation however she has been in sinus rhythm since she has been in hospital. She has been on Xarelto, diltiazem and beta-blockers and this has been continued. (3) Syncope and collapse Is this a current diagnosis for this admission?: Yes (4) UTI (urinary tract infection) Qualifiers: Urinary tract infection type: acute cystitis Hematuria presence: with hematuria Qualified Code(s): N30.01 - Acute cystitis with hematuria Is this a current diagnosis for this admission?: Yes Plan: Urine culture insignificant. He has been on ceftriaxone since 11/11/2019. Will stop today. (5) Morbid obesity with BMI of 40.0-44.9, adult Is this a current diagnosis for this admission?: Yes (6) Hypotension Qualifiers: Hypotension type: unspecified hypotension type Qualified Code(s): I95.9 - Hypotension, unspecified Is this a current diagnosis for this admission?: Yes Plan: Improved. Midodrine was stopped.
[2019-11-16] MEDS ORDERED: SOTALOL HCL 80 MG TABLET PO SCH (15:00)
[2019-11-16] MEDS ORDERED: (PENDING PHARMACY ID) (Sotalol Hcl [Betapace] 120 MG) PO SCH (18:00)
[2019-11-16] MEDS: RIVAROXABAN 10 MG TABLET PO SCH (18:10)
[2019-11-16] MEDS: NYSTATIN TOPICAL POWDER 15 GM TP SCH (18:11)
--- NOTE | 2019-11-16 19:32 | RADIOLOGY REPORT (SQ) ---
EXAM DESCRIPTION: MRI LUMBAR SPINE WITHOUT COMPLETED DATE/TIME: 11/16/2019 7:12 pm REASON FOR STUDY: LE numbness and tingling, weakness N39.0 URINARY TRACT INFECTION, SITE NOT SPECIF IED COMPARISON: CT from recently. TECHNIQUE: Sagittal and Axial imaging includes T1, T2, STIR and gradient echo sequences. Coronal T2/ HASTE imaging. LIMITATIONS: None. FINDINGS: VISUALIZED UPPER ABDOMEN: Renal cysts. Limited field of view. Limited assessment. No ev idence of aortic aneurysm. SEGMENTATION: No transitional anatomy. The lowest well-developed disc space is labeled L5-S1. ALIGNMENT: Slight scoliosis. VERTEBRAE: Intact. BONE MARROW: Normal. No marrow replacement or reactive changes. DISC SIGNAL: Variable signal and height loss. Non acute appearing Schmorl's nodes particularly at th e L3-4 level. POSTERIOR ELEMENTS: No overt pars defect. Mild facet arthropathy without bulky overgrowth. HARDWARE: None in the spine. CORD AND CONUS: Normal in size and signal intensity. Conus at the appropriate level. SOFT TISSUES: No aortic aneurysm seen. No bulky retroperitoneal adenopathy or mass. No paraspinal mas s or fluid. L1-L2: No significant spinal stenosis or exit foraminal stenosis. L2-L3: No significant spinal stenosis or exit foraminal stenosis. L3-L4: Broad left lateral minimal disc hernia or asymmetric bulge with associated osteophytes. Moder ate left foraminal narrowing. L4-L5: Minimal right lateral extending disc bulge with slight osteophytes. Associated moderate right foraminal stenosis. L5-S1: No significant spinal stenosis or exit foraminal stenosis. LOWER THORACIC: Incompletely imaged. No stenosis seen. SACRUM: Visualized upper sacrum intact. OTHER: No other significant findings. IMPRESSION: 1. Spondylosis as above. No high-grade central narrowing. Mild scoliosis with up to moderate left L 3 and right L4 foraminal narrowing. TECHNICAL DOCUMENTATION: JOB ID: [id number] 2010 [employer]- All Rights Reserved Reading location - IP/workstation name: [email or web address]
[2019-11-17] MEDS: ACETAMINOPHEN 325 MG TABLET PO PRN ×2 (00:15→22:18)
[2019-11-17] MEDS: PANTOPRAZOLE SODIUM 20 MG TABLET.DR PO SCH (05:06)
[2019-11-17] MEDS: OXYCODONE-ACETAMINOPHEN 5-325 MG TABLET PO PRN ×2 (05:07→13:24)
[2019-11-17] MEDS: TIMOLOL MALEATE 0.5% OPH SOLN 5 ML OU SCH ×2 (09:50→17:01)
[2019-11-17] MEDS: SOTALOL HCL 80 MG TABLET PO SCH (09:51)
[2019-11-17] MEDS: CHOLECALCIFEROL (D3) 1,000 UNIT (25 MCG) TABLET PO SCH (09:51)
[2019-11-17] MEDS: NYSTATIN TOPICAL POWDER 15 GM TP SCH ×2 (09:51→17:01)
[2019-11-17] MEDS: CALCIUM CARBONATE 600 MG/VITAMIN D3 400 UNIT TABLET PO SCH (09:51)
[2019-11-17] MEDS: BRIMONIDINE TARTRATE 0.2% OPH SOLN 5 ML OU SCH ×2 (09:51→17:01)
[2019-11-17] MEDS: DOCUSATE SODIUM 100 MG CAPSULE PO SCH (09:51)
[2019-11-17] MEDS: DILTIAZEM HCL 30 MG TABLET PO SCH (09:51)
[2019-11-17] MEDS: FLUTICASONE/VILANTEROL 100-25 MCG/DOSE IH SCH (10:28)
--- NOTE | 2019-11-17 13:51 | PDOC DISCHARGE SUMMARY ---
Impression - Admit/DC Date/PCP Admission Date/Primary Care Provider: 11/13/19 11:08 SAMMY URIBE NP Discharge Date: 11/17/19 - Discharge Diagnosis (1) Numbness and tingling of both legs Is this a current diagnosis for this admission?: Yes (2) Paroxysmal A-fib Is this a current diagnosis for this admission?: Yes (3) Syncope and collapse Is this a current diagnosis for this admission?: Yes (4) UTI (urinary tract infection) Is this a current diagnosis for this admission?: Yes (5) Morbid obesity with BMI of 40.0-44.9, adult Is this a current diagnosis for this admission?: Yes (6) Hypotension Is this a current diagnosis for this admission?: Yes - Assessment Summary: Reason For Visit: UTI NUMBNESS AND TINGLING PRESYNCOPE Patient complains of: To the emergency room apparently with complaints of fall almost falling down today. She said she had gotten up to go to the bathroom. Her home health nurse was in attendance. She took a few steps and she basically fell although her head did not hit the floor as she was assisted to the floor History of Present Illness: KAMINI FERNANDEZ is a 69 year old female. Also complains of sudden numbness and tingling of her lower extremity and unable to ambulate even in the ED they were unable to stand up I requested for an MRI to be done unfortunately the MRI machine is down and this could not be obtained and as such a CT scan was done. This showed broad diffuse disc bulge at several levels with multilevel degenerative changes but no significant mass. Patient says she has persistent numbness and tingling in her lower extremities. She also has what appears to be a right foot drop although she says this is not new. She will need an MRI but there is none that available. This will have to be subsequently obtained. Patient has a history of atrial fibrillation for which he takes Xarelto. She did not hit her head as she was assisted to the floor. However a CT scan of the brain still needs to be done and this will be ordered for tomorrow There was no loss of consciousness, no nausea vomiting chest pain. There was no significant arrhythmia identified on EKG or telemetry. In fact she is currently in sinus rhythm. Patient is able to move her legs and wiggle her toes today. Still has numbness and tingling Still unable to ambulate He also has numbness in her fingertips 11/13 Patient feels the same, still lower extremity numbness and tingling 11/14 patient states she feels better. She states that the numbness and tingling seem to have improved. The ones on the upper extremity, hands largely resolved. As she is still unable to stand up straight or ambulate. There is no incontinence that is new. She did state that she had some fecal incontinence or diarrhea for about 3 months but this is unchanged. At this time we are still awaiting MRI to be done and for patient to at least be able to stand up straight and ambulate 11/16/2019: Patient was seen and examined. She is improving slowly. She still with significant weakness. She is obese. She is deconditioned. Physical examination: General appearance: no acute distress, morbidly obese, well-developed Head exam: atraumatic, normocephalic Eye exam: conjunctiva pink, EOMI, PERRLA. No scleral icterus Neck exam: carotid bruit, JVD, lymphadenopathy, thyromegaly Respiratory exam: clear to auscultation aroldo. No rales, rhonchi, wheezes Cardiovascular exam: RRR, +S1, +S2. ABSENT: diastolic murmur, rubs, systolic murmur Pulses: normal dorsalis pedis pul Vascular exam: normal capillary refill GI/Abdominal exam: normal bowel sounds, soft. No distended, guarding, mass, organolmegaly, rebound, tenderness Rectal exam: deferred Extremities exam: full ROM. No calf tenderness, clubbing, pedal edema Neurological exam: alert, awake, oriented to person, oriented to place, oriented to time, oriented to situation, no sensory deficit. Generalized weakness. Psychiatric exam: appropriate affect, normal mood. No homicidal ideation, suicidal ideation Skin exam: dry, intact, warm. ABSENT: cyanosis, rash Hospital course: (1) Numbness and tingling of both legs MRI reviewed. CT scan was unremarkable. Symptoms improved. (2) Paroxysmal A-fib Remains in sinus rhythm Patient apparently has a history of atrial fibrillation however she has been in sinus rhythm since she has been in hospital. She has been on Xarelto, diltiazem and beta-blockers and this has been continued. (3) Syncope and collapse (4) UTI (urinary tract infection) Urine culture insignificant. He has been on ceftriaxone since 11/11/2019. Will stop today. (5) Morbid obesity with BMI of 40.0-44.9, adult (6) Hypotension Improved. Midodrine was stopped. Patient is deconditioned and will be discharged to rehab. - Additional Information Resuscitation Status: Full Code Referrals: [facility] [Outside] Home Medications: Butalb/Acetaminophen/Caffeine [Fioricet (50-325-40 mg) Tablet] 1 tab PO Q8HP PRN 08/05/19 Calcium Carbonate/Vitamin D3 [Os-Raffaele 500-Vit D3 200 Caplet] 1 tab PO DAILY 08/05/19 Cholecalciferol (Vitamin D3) [Vitamin D3 1000 Unit Tablet] 2,000 unit PO DAILY 08/05/19 Omeprazole 20 mg PO QPM 08/05/19 Sotalol HCl [Betapace] 120 mg PO BID 08/05/19 Budesonide/Formoterol Fumarate [Symbicort HFA 80-4.5 mcg Inhaler 6.9 gm] 2 puff IH Q12 15 Days #1 inhaler 08/20/19 Rivaroxaban [Xarelto 10 mg Tablet] 20 mg PO WSUPPER tablet 08/20/19 Brimonidine Tartrate/Timolol [Combigan 0.2%-0.5% Eye Drops] 1 drop OU BID 11/10/19 Diltiazem HCl [Cardizem 30 mg Tablet] 30 mg PO Q12 11/10/19 Tramadol HCl [Ultram 50 mg Tablet] 50 mg PO BIDP PRN 11/10/19 Acetaminophen [Tylenol 325 mg Tablet] 650 mg PO Q4HP PRN tablet 11/17/19 Docusate Sodium [Colace 100 mg Capsule] 100 mg PO DAILY capsule 11/17/19 Ipratropium/Albuterol Sulfate [Duoneb 3 ml Ampul] 3 ml NEB RTQ6HP PRN vial.neb 11/17/19 Nystatin [Mycostatin Topical Powder 15 gm] 1 applic TP BID bottle 11/17/19 History of Present Illiness History of Present Illness: KAMINI FERNANDEZ is a 69 year old female Physical Exam Vital Signs: Temp Pulse Resp BP Pulse Ox 98.2 F 71 18 107/67 95 11/17/19 11:26 11/17/19 11:26 11/17/19 11:26 11/17/19 11:26 11/17/19 11:26 Intake & Output 11/16/19 11/17/19 11/18/19 06:59 06:59 06:59 Intake Total 1307 1037 480 Balance 1307 1037 480 Weight 273 lb 5.971 oz 265 lb 3.457 oz Results Laboratory Results: WBC 3.6 10^3/uL (4.0-10.5) L 11/14/19 05:51 RBC 3.44 10^6/uL (3.72-5.28) L 11/14/19 05:51 Hgb 10.5 g/dL (12.0-15.5) L 11/14/19 05:51 Hct 31.3 % (36.0-47.0) L 11/14/19 05:51 MCV 91 fl (80-97) 11/14/19 05:51 MCH 30.5 pg (27.0-33.4) 11/14/19 05:51 MCHC 33.5 g/dL (32.0-36.0) 11/14/19 05:51 RDW 19.4 % (11.5-14.0) H 11/14/19 05:51 Plt Count 171 10^3/uL (150-450) 11/14/19 05:51 Lymph % (Auto) 28.5 % (13-45) 11/14/19 05:51 Calvert % (Auto) 12.4 % (3-13) 11/14/19 05:51 Eos % (Auto) 1.8 % (0-6) 11/14/19 05:51 Baso % (Auto) 0.6 % (0-2) 11/14/19 05:51 Absolute Neuts (auto) 2.1 10^3/uL (1.7-8.2) 11/14/19 05:51 Absolute Lymphs (auto) 1.0 10^3/uL (0.5-4.7) 11/14/19 05:51 Absolute Monos (auto) 0.4 10^3/uL (0.1-1.4) 11/14/19 05:51 Absolute Eos (auto) 0.1 10^3/uL (0.0-0.6) 11/14/19 05:51 Absolute Basos (auto) 0.0 10^3/uL (0.0-0.2) 11/14/19 05:51 Seg Neutrophils % 56.7 % (42-78) 11/14/19 05:51 Sodium 139.0 mmol/L (137-145) 11/14/19 05:51 Potassium 3.9 mmol/L (3.6-5.0) 11/14/19 05:51 Chloride 105 mmol/L (98-107) 11/14/19 05:51 Carbon Dioxide 29 mmol/L (22-30) 11/14/19 05:51 Anion Gap 5 (5-19) 11/14/19 05:51 BUN 4 mg/dL (7-20) L 11/14/19 05:51 Creatinine 0.36 mg/dL (0.52-1.25) L 11/14/19 05:51 Est GFR ( Amer) > 60 (>60) 11/14/19 05:51 Est GFR (MDRD) Non-Af > 60 (>60) 11/14/19 05:51 Glucose 79 mg/dL (75-110) 11/14/19 05:51 Calcium 8.2 mg/dL (8.4-10.2) L 11/14/19 05:51 Total Bilirubin 0.9 mg/dL (0.2-1.3) 11/10/19 12:55 Direct Bilirubin 0.4 mg/dL (0.0-0.4) 11/10/19 12:55 Neonat Total Bilirubin Not Reportable 11/10/19 12:55 Neonat Direct Bilirubin Not Reportable 11/10/19 12:55 Neonat Indirect Bili Not Reportable 11/10/19 12:55 AST 51 U/L (14-36) H 11/10/19 12:55 ALT 17 U/L (<35) 11/10/19 12:55 Alkaline Phosphatase 66 U/L (38-126) 11/10/19 12:55 Creatine Kinase 22 U/L (30-135) L 11/10/19 12:55 CK-MB (CK-2) 0.34 ng/mL (<4.55) 11/10/19 12:55 Troponin I < 0.012 ng/mL 03/18/20 12:55 Total Protein 5.7 g/dL (6.3-8.2) L 11/10/19 12:55 Albumin 2.6 g/dL (3.5-5.0) L 11/10/19 12:55 Urine Color AMANDEEP 11/10/19 15:25 Urine Appearance CLOUDY 11/10/19 15:25 Urine pH 7.0 (5.0-9.0) 11/10/19 15:25 Ur Specific Webster 1.015 11/10/19 15:25 Urine Protein 30 mg/dL (NEGATIVE) H 11/10/19 15:25 Urine Glucose (UA) NEGATIVE mg/dL (NEGATIVE) 11/10/19 15:25 Urine Ketones NEGATIVE mg/dL (NEGATIVE) 11/10/19 15:25 Urine Blood NEGATIVE (NEGATIVE) 11/10/19 15:25 Urine Nitrite POSITIVE (NEGATIVE) H 11/10/19 15:25 Urine Bilirubin NEGATIVE (NEGATIVE) 11/10/19 15:25 Urine Urobilinogen 4.0 mg/dL (<2.0) H 11/10/19 15:25 Ur Leukocyte Esterase LARGE (NEGATIVE) H 11/10/19 15:25 Urine WBC (Auto) >182 /HPF 11/10/19 15:25 Urine RBC (Auto) 9 /HPF 11/10/19 15:25 U Hyaline Cast (Auto) 22 /LPF 11/10/19 15:25 Urine Bacteria (Auto) 3+ /HPF 11/10/19 15:25 Urine WBC Clumps MANY /HPF 11/10/19 15:25 Squamous Epi Cells Auto 2 /HPF 11/10/19 15:25 Urine Mucus (Auto) FEW /LPF 11/10/19 15:25 Urine Creatinine 118.0 mg/dL (15-278) 11/10/19 15:25 Urine Ascorbic Acid NEGATIVE (NEGATIVE) 11/10/19 15:25 11/10/19 12:55 CK-MB (CK-2) 0.34 Troponin I < 0.012 Impressions: Chest X-Ray 11/10/19 14:34 IMPRESSION: NO ACUTE RADIOGRAPHIC FINDING IN THE CHEST. Lumbar Spine CT 11/10/19 16:44 IMPRESSION: No acute fracture or malalignment multilevel degenerative changes as above. And Lumbar Spine MRI 11/16/19 00:00 IMPRESSION: 1. Spondylosis as above. No high-grade central narrowing. Mild scoliosis with up to moderate left L3 and right L4 foraminal narrowing. Plan Time Spent: Greater than 30 Minutes - 35 minutes Stroke Is this a Stroke Patient?: No Acute Heart Failure - Is this a Heart Failure Patient?: No
--- NOTE | 2019-11-17 14:49 | PDOC PROGRESS REPORT ---
Subjective Progress Note for:: 11/17/19 Subjective:: Subjective:: Patient is able to move her legs and wiggle her toes today. Still has numbness and tingling Still unable to ambulate He also has numbness in her fingertips 11/13 Patient feels the same, still lower extremity numbness and tingling 11/14 patient states she feels better. She states that the numbness and tingling seem to have improved. The ones on the upper extremity, hands largely resolved. As she is still unable to stand up straight or ambulate. There is no incontinence that is new. She did state that she had some fecal incontinence or diarrhea for about 3 months but this is unchanged. At this time we are still awaiting MRI to be done and for patient to at least be able to stand up straight and ambulate 11/16/2019: Patient was seen and examined. She is improving slowly. She still with significant weakness. She is obese. She is deconditioned. 11/17/2019: Patient was seen and examined. Continues to improve. MRI was done and shows spondylosis. No high-grade central narrowing. Physical examination: General appearance: no acute distress, morbidly obese, well-developed Head exam: atraumatic, normocephalic Eye exam: conjunctiva pink, EOMI, PERRLA. No scleral icterus Neck exam: carotid bruit, JVD, lymphadenopathy, thyromegaly Respiratory exam: clear to auscultation aroldo. No rales, rhonchi, wheezes Cardiovascular exam: RRR, +S1, +S2. ABSENT: diastolic murmur, rubs, systolic murmur Pulses: normal dorsalis pedis pul Vascular exam: normal capillary refill GI/Abdominal exam: normal bowel sounds, soft. No distended, guarding, mass, organolmegaly, rebound, tenderness Rectal exam: deferred Extremities exam: full ROM. No calf tenderness, clubbing, pedal edema Neurological exam: alert, awake, oriented to person, oriented to place, oriented to time, oriented to situation, no sensory deficit. Generalized weakness. Psychiatric exam: appropriate affect, normal mood. No homicidal ideation, suicidal ideation Skin exam: dry, intact, warm. ABSENT: cyanosis, rash Reason For Visit: UTI NUMBNESS AND TINGLING PRESYNCOPE Physical Exam Vital Signs: Temp Pulse Resp BP Pulse Ox 98.2 F 71 18 107/67 95 11/17/19 11:26 11/17/19 11:26 11/17/19 11:26 11/17/19 11:26 11/17/19 11:26 Intake & Output 11/16/19 11/17/19 11/18/19 06:59 06:59 06:59 Intake Total 1307 1037 480 Balance 1307 1037 480 Weight 273 lb 5.971 oz 265 lb 3.457 oz Results Laboratory Results: 11/14/19 05:51 11/14/19 05:51 11/10/19 11/10/19 12:55 12:55 Creatine Kinase 22 L CK-MB (CK-2) 0.34 Troponin I < 0.012 Impressions: Chest X-Ray 11/10/19 14:34 IMPRESSION: NO ACUTE RADIOGRAPHIC FINDING IN THE CHEST. Lumbar Spine CT 11/10/19 16:44 IMPRESSION: No acute fracture or malalignment multilevel degenerative changes as above. And Lumbar Spine MRI 11/16/19 00:00 IMPRESSION: 1. Spondylosis as above. No high-grade central narrowing. Mild scoliosis with up to moderate left L3 and right L4 foraminal narrowing. Assessment and Plan - Diagnosis (1) Numbness and tingling of both legs Is this a current diagnosis for this admission?: Yes (2) Paroxysmal A-fib Is this a current diagnosis for this admission?: Yes (3) Syncope and collapse Is this a current diagnosis for this admission?: Yes (4) UTI (urinary tract infection) Qualifiers: Urinary tract infection type: acute cystitis Hematuria presence: with hematuria Qualified Code(s): N30.01 - Acute cystitis with hematuria Is this a current diagnosis for this admission?: Yes (5) Morbid obesity with BMI of 40.0-44.9, adult Is this a current diagnosis for this admission?: Yes (6) Hypotension Qualifiers: Hypotension type: unspecified hypotension type Qualified Code(s): I95.9 - Hypotension, unspecified Is this a current diagnosis for this admission?: Yes - Plan Summary Summary: (1) Numbness and tingling of both legs MRI reviewed. CT scan was unremarkable. Symptoms improved. (2) Paroxysmal A-fib Remains in sinus rhythm Patient apparently has a history of atrial fibrillation however she has been in sinus rhythm since she has been in hospital. She has been on Xarelto, diltiazem and beta-blockers and this has been continued. (3) Syncope and collapse (4) UTI (urinary tract infection) Urine culture insignificant. He has been on ceftriaxone since 11/11/2019. Will stop today. (5) Morbid obesity with BMI of 40.0-44.9, adult (6) Hypotension Improved. Midodrine was stopped. Patient is deconditioned and will be discharged to rehab. We attempted to discharge patient today but there are no beds available. Possible discharge tomorrow.
[2019-11-17] MEDS: RIVAROXABAN 10 MG TABLET PO SCH (17:00)
[2019-11-18] MEDS: SOTALOL HCL 80 MG TABLET PO SCH ×2 (00:50→09:23)
[2019-11-18] MEDS: PANTOPRAZOLE SODIUM 20 MG TABLET.DR PO SCH (05:47)
[2019-11-18] MEDS: ACETAMINOPHEN 325 MG TABLET PO PRN (08:05)
[2019-11-18] MEDS: CALCIUM CARBONATE 600 MG/VITAMIN D3 400 UNIT TABLET PO SCH (09:23)
[2019-11-18] MEDS: DOCUSATE SODIUM 100 MG CAPSULE PO SCH (09:23)
[2019-11-18] MEDS: DILTIAZEM HCL 30 MG TABLET PO SCH (09:23)
[2019-11-18] MEDS: ONDANSETRON 4 MG TAB.RAPDIS PO PRN (09:23)
[2019-11-18] MEDS: CHOLECALCIFEROL (D3) 1,000 UNIT (25 MCG) TABLET PO SCH (09:23)
[2019-11-18] MEDS: FLUTICASONE/VILANTEROL 100-25 MCG/DOSE IH SCH (09:24)
[2019-11-18] MEDS: BRIMONIDINE TARTRATE 0.2% OPH SOLN 5 ML OU SCH (09:24)
[2019-11-18] MEDS: NYSTATIN TOPICAL POWDER 15 GM TP SCH (09:24)
[2019-11-18] MEDS: TIMOLOL MALEATE 0.5% OPH SOLN 5 ML OU SCH (09:24)
--- NOTE | 2019-11-18 10:50 | PDOC DISCHARGE SUMMARY ---
Impression - Admit/DC Date/PCP Admission Date/Primary Care Provider: 11/13/19 11:08 SAMMY URIBE NP Discharge Date: 11/18/19 - Discharge Diagnosis (1) Numbness and tingling of both legs Is this a current diagnosis for this admission?: Yes (2) Paroxysmal A-fib Is this a current diagnosis for this admission?: Yes (3) Syncope and collapse Is this a current diagnosis for this admission?: Yes (4) UTI (urinary tract infection) Is this a current diagnosis for this admission?: Yes (5) Morbid obesity with BMI of 40.0-44.9, adult Is this a current diagnosis for this admission?: Yes (6) Hypotension Is this a current diagnosis for this admission?: Yes - Assessment Summary: (1) Numbness and tingling of both legs MRI reviewed. CT scan was unremarkable. Symptoms improved. (2) Paroxysmal A-fib Remains in sinus rhythm Patient apparently has a history of atrial fibrillation however she has been in sinus rhythm since she has been in hospital. She has been on Xarelto, diltiazem and beta-blockers and this has been continued. (3) Syncope and collapse (4) UTI (urinary tract infection) Urine culture insignificant. He has been on ceftriaxone since 11/11/2019. Will stop today. (5) Morbid obesity with BMI of 40.0-44.9, adult (6) Hypotension Improved. Midodrine was stopped. Patient is deconditioned and will be discharged to rehab. Okay for discharge today. Discussed with the patient. - Additional Information Resuscitation Status: Full Code Referrals: [facility] [Outside] Home Medications: Butalb/Acetaminophen/Caffeine [Fioricet (50-325-40 mg) Tablet] 1 tab PO Q8HP PRN 08/05/19 Calcium Carbonate/Vitamin D3 [Os-Raffaele 500-Vit D3 200 Caplet] 1 tab PO DAILY 08/05/19 Cholecalciferol (Vitamin D3) [Vitamin D3 1000 Unit Tablet] 2,000 unit PO DAILY 08/05/19 Omeprazole 20 mg PO QPM 08/05/19 Sotalol HCl [Betapace] 120 mg PO BID 08/05/19 Budesonide/Formoterol Fumarate [Symbicort HFA 80-4.5 mcg Inhaler 6.9 gm] 2 puff IH Q12 15 Days #1 inhaler 08/20/19 Rivaroxaban [Xarelto 10 mg Tablet] 20 mg PO WSUPPER tablet 08/20/19 Brimonidine Tartrate/Timolol [Combigan 0.2%-0.5% Eye Drops] 1 drop OU BID 11/10/19 Diltiazem HCl [Cardizem 30 mg Tablet] 30 mg PO Q12 11/10/19 Tramadol HCl [Ultram 50 mg Tablet] 50 mg PO BIDP PRN 11/10/19 Acetaminophen [Tylenol 325 mg Tablet] 650 mg PO Q4HP PRN tablet 11/17/19 Docusate Sodium [Colace 100 mg Capsule] 100 mg PO DAILY capsule 11/17/19 Ipratropium/Albuterol Sulfate [Duoneb 3 ml Ampul] 3 ml NEB RTQ6HP PRN vial.neb 11/17/19 Nystatin [Mycostatin Topical Powder 15 gm] 1 applic TP BID bottle 11/17/19 History of Present Illiness History of Present Illness: KAMINI FERNANDEZ is a 69 year old female Physical Exam Vital Signs: Temp Pulse Resp BP Pulse Ox 98.6 F 102 H 19 140/75 H 98 11/18/19 07:49 11/18/19 07:49 11/18/19 07:49 11/18/19 07:49 11/18/19 07:49 Intake & Output 11/17/19 11/18/19 11/19/19 06:59 06:59 06:59 Intake Total 1037 1636 Balance 1037 1636 Weight 265 lb 3.457 oz 265 lb 3.457 oz Results Laboratory Results: WBC 3.6 10^3/uL (4.0-10.5) L 11/14/19 05:51 RBC 3.44 10^6/uL (3.72-5.28) L 11/14/19 05:51 Hgb 10.5 g/dL (12.0-15.5) L 11/14/19 05:51 Hct 31.3 % (36.0-47.0) L 11/14/19 05:51 MCV 91 fl (80-97) 11/14/19 05:51 MCH 30.5 pg (27.0-33.4) 11/14/19 05:51 MCHC 33.5 g/dL (32.0-36.0) 11/14/19 05:51 RDW 19.4 % (11.5-14.0) H 11/14/19 05:51 Plt Count 171 10^3/uL (150-450) 11/14/19 05:51 Lymph % (Auto) 28.5 % (13-45) 11/14/19 05:51 [place] % (Auto) 12.4 % (3-13) 11/14/19 05:51 Eos % (Auto) 1.8 % (0-6) 11/14/19 05:51 Baso % (Auto) 0.6 % (0-2) 11/14/19 05:51 Absolute Neuts (auto) 2.1 10^3/uL (1.7-8.2) 11/14/19 05:51 Absolute Lymphs (auto) 1.0 10^3/uL (0.5-4.7) 11/14/19 05:51 Absolute Monos (auto) 0.4 10^3/uL (0.1-1.4) 11/14/19 05:51 Absolute Eos (auto) 0.1 10^3/uL (0.0-0.6) 11/14/19 05:51 Absolute Basos (auto) 0.0 10^3/uL (0.0-0.2) 11/14/19 05:51 Seg Neutrophils % 56.7 % (42-78) 11/14/19 05:51 Sodium 139.0 mmol/L (137-145) 11/14/19 05:51 Potassium 3.9 mmol/L (3.6-5.0) 11/14/19 05:51 Chloride 105 mmol/L (98-107) 11/14/19 05:51 Carbon Dioxide 29 mmol/L (22-30) 11/14/19 05:51 Anion Gap 5 (5-19) 11/14/19 05:51 BUN 4 mg/dL (7-20) L 11/14/19 05:51 Creatinine 0.36 mg/dL (0.52-1.25) L 11/14/19 05:51 Est GFR ( Amer) > 60 (>60) 11/14/19 05:51 Est GFR (MDRD) Non-Af > 60 (>60) 11/14/19 05:51 Glucose 79 mg/dL (75-110) 11/14/19 05:51 Calcium 8.2 mg/dL (8.4-10.2) L 11/14/19 05:51 Total Bilirubin 0.9 mg/dL (0.2-1.3) 11/10/19 12:55 Direct Bilirubin 0.4 mg/dL (0.0-0.4) 11/10/19 12:55 Neonat Total Bilirubin Not Reportable 11/10/19 12:55 Neonat Direct Bilirubin Not Reportable 11/10/19 12:55 Neonat Indirect Bili Not Reportable 11/10/19 12:55 AST 51 U/L (14-36) H 11/10/19 12:55 ALT 17 U/L (<35) 11/10/19 12:55 Alkaline Phosphatase 66 U/L (38-126) 11/10/19 12:55 Creatine Kinase 22 U/L (30-135) L 11/10/19 12:55 CK-MB (CK-2) 0.34 ng/mL (<4.55) 11/10/19 12:55 Troponin I < 0.012 ng/mL 11/10/19 12:55 Total Protein 5.7 g/dL (6.3-8.2) L 11/10/19 12:55 Albumin 2.6 g/dL (3.5-5.0) L 11/10/19 12:55 Urine Color AMANDEEP 11/10/19 15:25 Urine Appearance CLOUDY 11/10/19 15:25 Urine pH 7.0 (5.0-9.0) 11/10/19 15:25 Ur Specific [place] 1.015 11/10/19 15:25 Urine Protein 30 mg/dL (NEGATIVE) H 11/10/19 15:25 Urine Glucose (UA) NEGATIVE mg/dL (NEGATIVE) 11/10/19 15:25 Urine Ketones NEGATIVE mg/dL (NEGATIVE) 11/10/19 15:25 Urine Blood NEGATIVE (NEGATIVE) 11/10/19 15:25 Urine Nitrite POSITIVE (NEGATIVE) H 11/10/19 15:25 Urine Bilirubin NEGATIVE (NEGATIVE) 11/10/19 15:25 Urine Urobilinogen 4.0 mg/dL (<2.0) H 11/10/19 15:25 Ur Leukocyte Esterase LARGE (NEGATIVE) H 11/10/19 15:25 Urine WBC (Auto) >182 /HPF 11/10/19 15:25 Urine RBC (Auto) 9 /HPF 11/10/19 15:25 U Hyaline Cast (Auto) 22 /LPF 11/10/19 15:25 Urine Bacteria (Auto) 3+ /HPF 11/10/19 15:25 Urine WBC Clumps MANY /HPF 11/10/19 15:25 Squamous Epi Cells Auto 2 /HPF 11/10/19 15:25 Urine Mucus (Auto) FEW /LPF 11/10/19 15:25 Urine Creatinine 118.0 mg/dL (15-278) 11/10/19 15:25 Urine Ascorbic Acid NEGATIVE (NEGATIVE) 11/10/19 15:25 11/10/19 12:55 CK-MB (CK-2) 0.34 Troponin I < 0.012 Impressions: Chest X-Ray 11/10/19 14:34 IMPRESSION: NO ACUTE RADIOGRAPHIC FINDING IN THE CHEST. Lumbar Spine CT 11/10/19 16:44 IMPRESSION: No acute fracture or malalignment multilevel degenerative changes as above. And Lumbar Spine MRI 11/16/19 00:00 IMPRESSION: 1. Spondylosis as above. No high-grade central narrowing. Mild scoliosis with up to moderate left L3 and right L4 foraminal narrowing. Stroke Is this a Stroke Patient?: No Acute Heart Failure - Is this a Heart Failure Patient?: No
[2019-11-18 12:14] VITALS: BP 98/54
== END 2019-11-18 13:17 | DRG 690 ==
LOC: ER 12:35 → EH 16:03 → 4N 19:38 → OBSVTOIN 11-13 11:08
PROVIDERS: ADMIT Internal Medicine; ATTEND Family Medicine
DX: N30.01 Acute cystitis with hematuria (principal); Z68.41 Body mass index [BMI] 40.0-44.9, adult; R20.0 Anesthesia of skin; I95.9 Hypotension, unspecified; E66.01 Morbid (severe) obesity due to excess calories; R55 Syncope and collapse; M21.371 Foot drop, right foot; R15.9 Full incontinence of feces; I10 Essential (primary) hypertension; K44.9 Diaphragmatic hernia without obstruction or gangrene; Z79.01 Long term (current) use of anticoagulants; Z88.2 Allergy status to sulfonamides
CPT/HCPCS: 36415; 71046; 72131; 72148; 80048; 80053; 81001; 82550; 82553; 82570; 84484; 85025; 85027; 87086; 93005; 93010; 96365; 99285; G0378; J0696; J3490; J7040; J7120; J7512; S0119

== ENCOUNTER 2020-03-19 11:33 | Emergency (ER) | payer MEDICARE, MEDICAID ==
--- NOTE | 2020-03-19 13:25 | ER Document Report ---
ED Medical Screen (RME) - General Chief Complaint: Flank Pain Stated Complaint: BACK PAIN Time Seen by Provider: 03/19/20 13:22 Primary Care Provider: CLAUDIO NEGRON MD [Primary Care Provider] - Follow up as needed Mode of Arrival: Wheelchair Information source: Patient Notes: Patient is a 69-year-old female comes emergency room complaining of right-sided flank pain. Patient has a history of kidney stones. Yesterday evening patient started with some right-sided flank pain with some mild rotation around to the lower abdominal area. She took her Percocet that she is prescribed without any relief. EMS was called today because the pain is increasingly getting worse they did give her a shot of Toradol which gave her 100% relief. Her last kidney stone was approximately a year ago and she had lithotripsy for. She has had nausea without vomiting. She denies any fever. She has had no diarrhea. Physical examination: Patient is a well-nourished well-developed 60 female is no apparent distress on examination this afternoon. She does appear slightly uncomfortable. Cardiac: Regular rate and rhythm with no murmurs. Lungs: Auscultation of her lungs show bilateral breath sounds breath sounds decreased throughout no rhonchi rales or wheeze heard. Abdomen: Patient does display some right-sided flank pain to percussion. Mild tenderness lateral right lower quadrant to palpation as well. I have greeted and performed a rapid initial assessment of this patient. A comprehensive ED assessment and evaluation of the patient, analysis of test results and completion of the medical decision making process will be conducted by additional ED providers. Dictation of this chart was performed using voice recognition software; therefore, there may be some unintended grammatical errors. TRAVEL OUTSIDE OF THE [place] IN LAST 30 DAYS: No - Related Data Allergies/Adverse Reactions: Sulfa (Sulfonamide Antibiotics) Allergy (Verified 08/05/19 07:53) RASH Past Medical History - Social History Chew tobacco use (# tins/day): No Frequency of alcohol use: None Drug Abuse: None - Past Medical History Cardiac Medical History: Reports: Hx Atrial Fibrillation, Hx Hypertension Denies: Hx Heart Attack Pulmonary Medical History: Denies: Hx Asthma Neurological Medical History: Denies: Hx Cerebrovascular Accident, Hx Seizures GI Medical History: Reports: Hx Hiatal Hernia. Denies: Hx Hepatitis, Hx Ulcer Infectious Medical History: Denies: Hx Hepatitis Past Surgical History: Reports: Hx Herniorrhaphy, Hx Hysterectomy, Hx Kidney (Renal Surgery). Denies: Hx Mastectomy, Hx Open Heart Surgery, Hx Pacemaker - Immunizations Hx Diphtheria, Pertussis, Tetanus Vaccination: Yes Physical Exam - Vital signs Vitals: Temp Pulse Resp BP Pulse Ox 99.3 F 100 20 126/74 H 95 03/19/20 11:46 03/19/20 11:46 03/19/20 11:46 03/19/20 11:46 03/19/20 11:46 Course - Vital Signs Vital signs: Temp Pulse Resp BP Pulse Ox 99.3 F 100 20 126/74 H 95 03/19/20 11:46 03/19/20 11:46 03/19/20 11:46 03/19/20 11:46 03/19/20 11:46 Doctor's Discharge - Discharge Referrals: CLAUDIO NEGRON MD [Primary Care Provider] - Follow up as needed
[2020-03-19 14:11] LABS: ABSOLUTE LYMPHOCYTES (AUTO) 1.4 10^3/uL (0.5-4.7); ABSOLUTE MONOCYTES (AUTO) 0.8 10^3/uL (0.1-1.4); ABSOLUTE NEUT (AUTO) 5.1 10^3/uL (1.7-8.2); BASOPHILS % (AUTO) 0.5 % (0-2); EOSINOPHILS % (AUTO) 0.2 % (0-6); HEMATOCRIT 36.1 % (36.0-47.0); HEMOGLOBIN 11.4 g/dL (12.0-15.5); LYMPHOCYTES % (AUTO) 19.3 % (13-45); MEAN CORPUSCULAR HEMOGLOBIN 26.4 pg (27.0-33.4); MEAN CORPUSCULAR HGB CONC 31.5 g/dL (32.0-36.0); MEAN CORPUSCULAR VOLUME 84 fl (80-97); MONOCYTES % (AUTO) 11.2 % (3-13); PLATELET COUNT 312 10^3/uL (150-450); RED BLOOD COUNT 4.31 10^6/uL (3.72-5.28); RED CELL DISTRIBUTION WIDTH 17.4 % (11.5-14.0); SEGMENTED NEUTROPHILS % (AUTO) 68.8 % (42-78); TOTAL CELLS COUNTED % (AUTO) 100 %; WHITE BLOOD COUNT 7.3 10^3/uL (4.0-10.5)
[2020-03-19 14:14] LABS: ALBUMIN 3.2 g/dL (3.5-5.0); ALKALINE PHOSPHATASE 68 U/L (38-126); ANION GAP 8 (5-19); ASPARTATE AMINO TRANSFERASE 50 U/L (14-36); BILIRUBIN,DIRECT 0.1 mg/dL (0.0-0.4); BILIRUBIN,TOTAL 0.9 mg/dL (0.2-1.3); BLOOD UREA NITROGEN 6 mg/dL (7-20); CALCIUM 8.7 mg/dL (8.4-10.2); CARBON DIOXIDE 29 mmol/L (22-30); CHLORIDE 101 mmol/L (98-107); GLUCOSE 128 mg/dL (75-110); POTASSIUM 4.5 mmol/L (3.6-5.0); TOTAL PROTEIN 6.3 g/dL (6.3-8.2)
[2020-03-19 14:31] LABS: APPEARANCE,URINE CLOUDY; BILIRUBIN,URINE SMALL (NEGATIVE); COLOR,URINE AMBER; GLUCOSE, URINE NEGATIVE (NEGATIVE); KETONES,URINE NEGATIVE (NEGATIVE); LEUKOCYTE ESTERASE,URINE LARGE (NEGATIVE); NITRITE,URINE POSITIVE (NEGATIVE); PROTEIN,URINE 30 mg/dL (NEGATIVE); URINE SPECIFIC GRAVITY 1.018
[2020-03-19] MEDS ORDERED: HYDROMORPHONE HCL INJ/PF 2 MG/ML AMPULE IV ONE ×2 (16:40→17:57)
[2020-03-19] MEDS ORDERED: ONDANSETRON HCL INJ/PF 4 MG/2 ML SDV IV ONE (16:40)
--- NOTE | 2020-03-19 16:46 | ER Document Report ---
ED GI/ - General Chief Complaint: Flank Pain Stated Complaint: BACK PAIN Time Seen by Provider: 03/19/20 13:22 Primary Care Provider: CLAUDIO NEGRON MD [Primary Care Provider] - Follow up as needed Mode of Arrival: Medic Information source: Patient Notes: 69-year-old woman presents to the emergency department with a complaint of right flank pain, thinks that she may have a kidney stone. Symptoms began 2 days ago she noticed blood in her urine, last night she began having pain in the right flank area. She has had a history of kidney stones in the past. She was given medication for pain by EMS, Toradol 30 mg IV. She has a history of atrial fibrillation, hypertension, GERD, chronic pain and elevated BMI. She rates her pain a 4/10 at this time. She has a history of UTI, last diagnosed in this emergency department 01/22/2020, E. coli and Klebsiella, both organisms were sensitive to cephalosporins. TRAVEL OUTSIDE OF THE [place] IN LAST 30 DAYS: No - Related Data Allergies/Adverse Reactions: Sulfa (Sulfonamide Antibiotics) Allergy (Verified 08/05/19 07:53) RASH Past Medical History - General Information source: Patient - Social History Smoking Status: Never Smoker Chew tobacco use (# tins/day): No Frequency of alcohol use: None Drug Abuse: None Family History: Reviewed & Not Pertinent Patient has homicidal ideation: No - Past Medical History Cardiac Medical History: Reports: Hx Atrial Fibrillation, Hx Hypertension Denies: Hx Heart Attack Pulmonary Medical History: Denies: Hx Asthma Neurological Medical History: Denies: Hx Cerebrovascular Accident, Hx Seizures GI Medical History: Reports: Hx Hiatal Hernia. Denies: Hx Hepatitis, Hx Ulcer Infectious Medical History: Denies: Hx Hepatitis Past Surgical History: Reports: Hx Herniorrhaphy, Hx Hysterectomy, Hx Kidney (Renal Surgery). Denies: Hx Mastectomy, Hx Open Heart Surgery, Hx Pacemaker - Immunizations Hx Diphtheria, Pertussis, Tetanus Vaccination: Yes Review of Systems - Review of Systems Notes: Constitutional: Negative for fever. HENT: Negative for sore throat. Eyes: Negative for visual changes. Cardiovascular: Negative for chest pain. Respiratory: Negative for shortness of breath. Gastrointestinal: Negative for abdominal pain, vomiting or diarrhea. Genitourinary: + Right flank pain, + hematuria Musculoskeletal: Negative for back pain. Skin: Negative for rash. Neurological: Negative for headaches, weakness or numbness. 10 point ROS negative except as marked above and in HPI. Physical Exam - Vital signs Vitals: Temp Pulse Resp BP Pulse Ox 99.3 F 100 20 126/74 H 95 03/19/20 11:46 03/19/20 11:46 03/19/20 11:46 03/19/20 11:46 03/19/20 11:46 - Notes Notes: PHYSICAL EXAMINATION: Physical Exam: General: Overweight 69-year-old woman in mild distress secondary to right flank pain. HEENT: NC/AT, pupils equal round and reactive to light, MM moist,nares clear, oropharynx clear, airway patent Neck: supple, no adenopathy, no masses. Good range of motion Lungs: clear, no wheezing, no rales no rhonchi CVS: Regular rate and rhythm no murmur gallop or rub Abdomen: Soft, active, nontender, no masses, no hepatosplenomegaly : + Right CVA tenderness Ext: No edema, clubbing or cyanosis. Neuro: Alert and responsive, moving all 4 extremities on command, cranial nerves intact, no focal findings Skin: Intact no open lesions, no rash PSYCH: Normal mood, normal affect. Course - Re-evaluation Re-evalutation: 03/19/20 18:46 I have discussed the findings of the CT scan which is negative for obstructing kidney stones with the patient. Urine appears to have infection and the patient likely has early pyelonephritis. Her pain is controlled, prior urine cultures were positive for E. coli and Klebsiella both organisms sensitive to cephalosporins. She is given IV Rocephin in the emergency department and will be discharged on cefdinir 300 mg twice daily, Pyridium 200 mg every 8 hours and Finley short-term for pain. Patient is cautioned to monitor closely for signs of infection or worsening symptoms and to return to the emergency department if needed. She expresses an understanding of this plan and is in agreement. - Vital Signs Vital signs: Temp Pulse Resp BP Pulse Ox 99.3 F 100 20 126/74 H 95 03/19/20 11:46 03/19/20 11:46 03/19/20 11:46 03/19/20 11:46 03/19/20 11:46 - Laboratory Result Diagrams: 03/19/20 13:30 03/19/20 13:30 Laboratory results interpreted by me: 03/19/20 03/19/20 03/19/20 13:30 13:30 14:00 Hgb 11.4 L MCH 26.4 L MCHC 31.5 L RDW 17.4 H BUN 6 L Glucose 128 H AST 50 H Albumin 3.2 L Urine Protein 30 H Urine Nitrite POSITIVE H Urine Bilirubin SMALL H Urine Urobilinogen 4.0 H Ur Leukocyte Esterase LARGE H 03/19/20 18:42 I have reviewed laboratory data and used this information for the treatment decisions regarding the patient. - Diagnostic Test Radiology reviewed: Image reviewed, Reports reviewed Radiology results interpreted by me: 03/19/20 18:50 CT scan abdomen and pelvis without contrast: Bilateral kidney stones, no obstructing stones are seen. No other acute intra-abdominal pathology, hepatic steatosis Discharge - Discharge Clinical Impression: Acute right flank pain UTI (urinary tract infection) Qualifiers: Urinary tract infection type: site unspecified Hematuria presence: with hematuria Qualified Code(s): N39.0 - Urinary tract infection, site not specified Condition: Good Disposition: HOME, SELF-CARE Instructions: Flank Pain ([facility]), Urinary Tract Infection ([facility]) Additional Instructions: You were seen in the emergency department today with right flank pain and a urinary tract infection. Antibiotics are given in the emergency department IV, you are being discharged with prescriptions for cefdinir, Pyridium, and Finley for pain and infection. Please monitor your symptoms closely. If you are having nausea and vomiting and unable to take the medications or if you develop fever and are getting sicker, please return to the emergency department for further evaluation and treatment. Please follow-up with your primary care doctor in 1 week for recheck of urinalysis. HOME CARE INSTRUCTIONS & INFORMATION: Thank you for choosing us for your medical needs. We hope you're satisfied with the care you received. After you leave, you must properly care for your problem and, at the same time, observe its progress. Any condition can change. Some illnesses can change rapidly over hours or days. If your condition worsens, return to the Emergency Department or see your physician promptly. ABOUT YOUR X-RAYS AND EKG'S: If you had an EKG or X-rays taken, they have been read by the Emergency Physician. The X-rays and EKG's will also be read by a Radiologist or Parts Sales Advisor within 24 hours. If discrepancies are noted, you will be notified by telephone. Please be certain the ED has a correct telephone number & address where you can be reached. Also, realize that some fractures or abnormalities do not show up on initial X-rays. If your symptoms continue, see your physician. ABOUT YOUR LABORATORY TEST: If you had laboratory tests, the results have been reviewed by the Emergency Physician. Some test results (for example cultures) may not be available for several days. You will be contacted if any test result shows you need additional treatment. Please be certain the ED has a correct telephone number and address where you can be reached. ABOUT YOUR MEDICATIONS: You will receive instructions on how to take your medicine on the prescription label you receive. Additional information may be provided by the Pharmacy. If you have questions afterwards, call the ED for clarification or further instructions. Some prescribed medications may cause drowsiness. Do not perform tasks such as driving a car or operating machinery without consulting your Pharmacist. If you feel you need a refill of pain medication, your condition will need re-evaluation. Please do not call for a refill of any medication. ABOUT YOUR SIGNATURE: Signature of this document acknowledges to followin. Understanding that you received emergency treatment and that you may be re leased before al medical problems are known or treated. Please be certain the ED has a correct phone number & address where you can be reached. 2. Acknowledgement that you will arrange for follow-up care as recommended. 3. Authorization for the Emergency Physician to provide information to your follow-up Physician in order to maximize your care. AT ANY TIME, IF YOUR SYMPTOMS CHANGE SIGNIFICANTLY OR WORSEN OR YOU DEVELOP NEW SYMPTOMS, RETURN TO THE EMERGENCY DEPARTMENT IMMEDIATELY FOR RE-EVALUATION. OUR GOAL IS TO PROVIDE EXCELLENT MEDICAL CARE! WE HOPE THAT WE HAVE MET YOUR EXPECTATIONS DURING YOUR EMERGENCY DEPARTMENT VISIT AND THAT YOU FEEL YOU HAVE RECEIVED EXCELLENT CARE! Prescriptions: Cefdinir 300 mg PO BID #20 capsule Phenazopyridine HCl [Pyridium 200 mg Tablet] 200 mg PO TID #12 tablet Referrals: CLAUDIO NEGRON MD [Primary Care Provider] - Follow up as needed
--- NOTE | 2020-03-19 18:33 | RADIOLOGY REPORT (SQ) ---
EXAM DESCRIPTION: CT ABD/PELVIS NO ORAL OR IV IMAGES COMPLETED DATE/TIME: 03/19/2020 4:50 pm REASON FOR STUDY: Flank pain. Previous hysterectomy. COMPARISON: MRI abdomen, 08/05/2019. CT chest, 08/09/2019 TECHNIQUE: CT scan of the abdomen and pelvis performed without intravenous or oral contrast. Images reviewed with lung, soft tissue, and bone windows. Reconstructed coronal and sagittal MPR images revi ewed. All images stored on PACS. All CT scanners at this facility use dose modulation, iterative reconstruction, and/or weight based d osing when appropriate to reduce radiation dose to as low as reasonably achievable (ALARA). [facility]: Dose Right [facility]: CareDose [facility]: Dose Right [facility]: Teradose 4D [facility]: [employer] RADIATION DOSE: CT Rad equipment meets quality standard of care and radiation dose reduction techniq ues were employed. CTDIvol: 19.0 mGy. DLP: 1046 mGy-cm.mGy. LIMITATIONS: None. FINDINGS: LOWER CHEST: No significant findings. No nodules or infiltrates. NON-CONTRASTED LIVER, SPLEEN, ADRENALS: The liver is moderately enlarged with severe diffuse hepatic steatosis. Mildly nodular contour. Focal fatty sparing or diaphragmatic slip along the posterior ri ght hepatic lobe. No suspicious hepatic mass. Hepatic and portal veins are patent. There is pneumo bilia from prior surgical procedure. No biliary ductal dilation. Spleen has normal size. No adrena l mass. PANCREAS: No masses. No peripancreatic inflammatory changes. GALLBLADDER: Interval cholecystectomy. No fluid in the cholecystectomy bed. RIGHT KIDNEY AND URETER: Exophytic right renal cortical cyst. Punctate nonobstructing right renal ca lculi. No obstructing renal or ureteral calculi No hydronephrosis or hydroureter. LEFT KIDNEY AND URETER: Left parapelvic renal cyst. No definite renal mass. Assessment limited by la ck of IV contrast. Multiple nonobstructing left renal calculi. No obstructing renal or ureteral ca lculus. No hydronephrosis or hydroureter. AORTA AND RETROPERITONEUM: No aneurysm. No retroperitoneal masses or adenopathy. BOWEL AND PERITONEAL CAVITY: There is a large duodenal diverticulum. No evidence of acute inflammato ry change. Multiple descending and sigmoid colon diverticula are also noted. No evidence of diverti culitis. No bowel obstruction. No bowel wall thickening or mass. No significant inflammatory tubbs e. APPENDIX: Not visualized. PELVIS, BLADDER, AND ABDOMINAL WALL:Post hysterectomy. No adnexal mass. Urinary bladder is unremark able. Calcified pelvic phleboliths. Ventral hernia repair mesh without evidence of complication. BONES: Spondylosis and degenerative disc disease. No suspicious bone lesions. OTHER: No other significant finding. IMPRESSION: 1. Severe hepatic steatosis. 2. Colonic and duodenal diverticulosis without evidence of diverticulitis. 3. Bilateral nonobstructing renal calculi. No hydronephrosis. COMMENT: Quality ID # [id number]: Final reports with documentation of one or more dose reduction techniques (e.g., Automated exposure control, adjustment of the mA and/or kV according to patient size, use of iterative reconstruction technique) TECHNICAL DOCUMENTATION: JOB ID: [id number] 2010 [employer]- All Rights Reserved Reading location - IP/workstation name: [email or web address]
[2020-03-19] MEDS ORDERED: HYDROCODONE/ACETAMINOPHEN 5-325 MG (6 TAB/ER DISP) PO PRN (18:54)
[2020-03-19] MEDS ORDERED: CEFTRIAXONE 1 GM/D5W RTU 1 GM/50 ML RTUPB IV ONE (19:30)
[2020-03-19] MEDS ORDERED: SOTALOL HCL 80 MG TABLET PO ONE (20:15)
--- NOTE | 2020-03-19 21:50 | ER Document Report ---
Doctor's Note Notes: 03/19/20 21:48 Patient's heart rate is now in the 80s after taking her sotalol. We will proceed with discharge as discussed with Dr. Hood.
[2020-03-19 23:31] VITALS: BP 122/77
== END 2020-03-19 21:50 | disposition home or self-care (01) ==
LOC: ER 11:33
DX: N39.0 Urinary tract infection, site not specified (principal); R10.9 Unspecified abdominal pain; M54.9 Dorsalgia, unspecified; R31.9 Hematuria, unspecified; Z87.442 Personal history of urinary calculi; Z88.2 Allergy status to sulfonamides; I48.91 Unspecified atrial fibrillation; I10 Essential (primary) hypertension
CPT/HCPCS: 96376; 99284; 96375; 96365; 36415; 87086; 85025; 87088; 80053; 81001; 74176; A9270 ×2; J1170; J2405; J0696; 87186; J3490

== ENCOUNTER 2020-05-13 01:41 | Inpatient (IN) | payer MEDICARE, MEDICAID ==
[2020-05-13 02:33] LABS: ABSOLUTE BASOPHILS # (AUTO) 0.1 10^3/uL (0.0-0.2); ABSOLUTE LYMPHOCYTES (AUTO) 0.7 10^3/uL (0.5-4.7); ABSOLUTE MONOCYTES (AUTO) 0.8 10^3/uL (0.1-1.4); ABSOLUTE NEUT (AUTO) 11.3 10^3/uL (1.7-8.2); BASOPHILS % (AUTO) 0.8 % (0-2); HEMATOCRIT 40.9 % (36.0-47.0); LYMPHOCYTES % (AUTO) 5.7 % (13-45); MEAN CORPUSCULAR HEMOGLOBIN 27.6 pg (27.0-33.4); MEAN CORPUSCULAR HGB CONC 31.8 g/dL (32.0-36.0); MEAN CORPUSCULAR VOLUME 87 fl (80-97); MONOCYTES % (AUTO) 6.3 % (3-13); PLATELET COUNT 411 10^3/uL (150-450); RED BLOOD COUNT 4.72 10^6/uL (3.72-5.28); RED CELL DISTRIBUTION WIDTH 18.3 % (11.5-14.0); SEGMENTED NEUTROPHILS % (AUTO) 87.2 % (42-78); TOTAL CELLS COUNTED % (AUTO) 100 %; WHITE BLOOD COUNT 12.9 10^3/uL (4.0-10.5)
[2020-05-13 02:54] LABS: ALBUMIN 3.3 g/dL (3.5-5.0); ALKALINE PHOSPHATASE 95 U/L (38-126); ANION GAP 9 (5-19); ASPARTATE AMINO TRANSFERASE 37 U/L (14-36); BILIRUBIN,DIRECT 0.5 mg/dL (0.0-0.4); BILIRUBIN,TOTAL 0.9 mg/dL (0.2-1.3); BLOOD UREA NITROGEN 7 mg/dL (7-20); CARBON DIOXIDE 27 mmol/L (22-30); CHLORIDE 101 mmol/L (98-107); GLUCOSE 131 mg/dL (75-110); POTASSIUM 4.7 mmol/L (3.6-5.0); TOTAL PROTEIN 6.4 g/dL (6.3-8.2)
[2020-05-13] MEDS ORDERED: ACETAMINOPHEN 325 MG TABLET PO ONE (03:03)
[2020-05-13] MEDS ORDERED: ONDANSETRON HCL INJ/PF 4 MG/2 ML SDV IV ONE (03:04)
[2020-05-13] MEDS ORDERED: MORPHINE SULFATE 10 MG/ML INJ IV ONE (03:04)
[2020-05-13] MEDS ORDERED: NORMAL SALINE 1000 ML 1,000 ML IV ONE ×2 (03:06→04:55)
--- NOTE | 2020-05-13 03:10 | ER Document Report ---
ED General - General Chief Complaint: Flank Pain Stated Complaint: BACK PAIN Time Seen by Provider: 05/13/20 02:51 Primary Care Provider: CLAUDIO NEGRON MD [Primary Care Provider] - Follow up as needed Notes: Patient is a 70-year-old female that comes emergency department by EMS for chief complaint of right sided pain in her ribs that radiates to her flank, cough, fever/chills, and a few episodes of vomiting. Patient states she has been progressively worsening for about 3 days now. She denies any obvious sick contacts. Patient denies asthma/COPD, smoking. Patient reports history of atrial fibrillation on Cardizem and Xarelto, LAKSHMI, obesity, no other medical history reported. TRAVEL OUTSIDE OF THE [place] IN LAST 30 DAYS: No - Related Data Allergies/Adverse Reactions: Sulfa (Sulfonamide Antibiotics) Allergy (Verified 08/05/19 07:53) RASH Past Medical History - General Information source: Patient - Social History Smoking Status: Never Smoker Frequency of alcohol use: None Drug Abuse: None Lives with: Family Family History: Reviewed & Not Pertinent - Past Medical History Cardiac Medical History: Reports: Hx Atrial Fibrillation, Hx Hypertension Denies: Hx Heart Attack Pulmonary Medical History: Denies: Hx Asthma Neurological Medical History: Denies: Hx Cerebrovascular Accident, Hx Seizures GI Medical History: Reports: Hx Hiatal Hernia. Denies: Hx Hepatitis, Hx Ulcer Infectious Medical History: Denies: Hx Hepatitis Past Surgical History: Reports: Hx Herniorrhaphy, Hx Hysterectomy, Hx Kidney (Renal Surgery). Denies: Hx Mastectomy, Hx Open Heart Surgery, Hx Pacemaker - Immunizations Hx Diphtheria, Pertussis, Tetanus Vaccination: Yes Review of Systems - Review of Systems Constitutional: See HPI EENT: No symptoms reported Cardiovascular: See HPI Respiratory: See HPI Gastrointestinal: See HPI Genitourinary: No symptoms reported Female Genitourinary: No symptoms reported Musculoskeletal: No symptoms reported Skin: No symptoms reported Hematologic/Lymphatic: No symptoms reported Neurological/Psychological: No symptoms reported Physical Exam - Vital signs Vitals: Resp BP Pulse Ox 36 H 110/43 L 95 05/13/20 01:46 05/13/20 01:46 05/13/20 01:46 - Notes Notes: GENERAL: Ill-appearing, pale, slightly diaphoretic HEAD: Normocephalic, atraumatic. EYES: Pupils equal, round, and reactive to light. Extraocular movements intact. ENT: Oral mucosa moist, tongue midline. Oropharynx unremarkable. Airway patent. NECK: Full range of motion. Supple. Trachea midline. No lymphadenopathy. LUNGS: Respiratory distress with labored breathing, grunting, significant tachypnea. Lungs clear bilaterally with no overt abnormality, exam slightly limited by body habitus. HEART: Tachycardia, normal rhythm, no murmur ABDOMEN: Obese abdomen but no overt tenderness, distention, or guarding noted. EXTREMITIES: Moves all 4 extremities spontaneously. No edema, normal radial and dorsalis pedis pulses bilaterally. No cyanosis. BACK: no cervical, thoracic, lumbar midline tenderness. No saddle anesthesia, normal distal neurovascular exam. Moves all extremities in full range of motion. NEUROLOGICAL: Alert and oriented x3. Normal speech. Cranial nerves II through XII grossly intact. Strength 5/5 in all extremities. PSYCH: Normal affect, normal mood. SKIN: Slightly pale, slightly diaphoretic Course - Re-evaluation Re-evalutation: 05/13/20 03:05 On evaluation patient is very uncomfortable, ill-appearing, she was noted to be febrile, tachycardic, and has tachypnea at about 45 respirations per minute. She is not hypotensive. Patient is requesting something for the discomfort in her right side. Lungs seem clear, oxygen is borderline on room air at 92%. However because patient is in respiratory distress with retractions, labored breathing, difficulty speaking in full sentences, significant tachypnea patient will be placed on BiPAP, septic work-up is pending. Patient will be closely monitored. 05/13/20 On reevaluation on BiPAP patient is significantly improved. Respiratory rate is now 22, labored breathing has resolved, tachycardia has improved. Patient states she feels much improved. CBC shows leukocytosis at 12,000 with elevation of neutrophils but no bandemia. Chemistry nonspecific, troponin is not elevated, EKG nonspecific. Chest x-ray showing right-sided pleural effusion with minimal adjacent airspace opacity. Patient on exam does not have abdominal pain, pain is in her right side/chest and lower ribs. Based on her cough, fever, respiratory distress, I clinically suspect patient has pneumonia. Patient started on antibiotics for community- acquired pneumonia, blood cultures pending, venous blood gas obtained but is unremarkable. We finally obtained a urinalysis, this shows 3+ bacteria but no leukocyte esterase or white blood cells, no nitrites. Culture placed. Patient will be tested for COVID-19, she will require admission for respiratory distress, hypoxia, fever, suspected pneumonia. Patient became briefly borderline hypotensive although after fluid bolus and changing the blood pressure cuff location blood pressure has normalized. Patient is still tachycardic on reevaluation but she remains significantly improved compared to prior. I discussed details with patient, patient states understanding and agreement with plan. - Vital Signs Vital signs: Temp Pulse Resp BP Pulse Ox 101.8 F H 125 H 25 H 106/66 100 05/13/20 03:30 05/13/20 01:49 05/13/20 05:31 05/13/20 05:31 05/13/20 05:31 - Laboratory Result Diagrams: 05/13/20 02:15 05/13/20 02:15 Laboratory results interpreted by me: 05/13/20 05/13/20 05/13/20 02:15 02:15 05:25 WBC 12.9 H MCHC 31.8 L RDW 18.3 H Lymph % (Auto) 5.7 L Absolute Neuts (auto) 11.3 H Seg Neutrophils % 87.2 H Glucose 131 H Direct Bilirubin 0.5 H AST 37 H Albumin 3.3 L Urine Protein 30 H Urine Bilirubin SMALL H Urine Urobilinogen 4.0 H - EKG Interpretation by Me Additional EKG results interpreted by me: EKG shows sinus tachycardia at a rate of 125, QTC 375, borderline left axis deviation, no T wave inversions or systemic changes in consecutive leads. Discharge - Discharge Clinical Impression: Respiratory distress, Cough, Right-sided chest pain, Tachycardia, Person under investigation for COVID-19 Fever Qualifiers: Fever type: unspecified Qualified Code(s): R50.9 - Fever, unspecified Condition: Stable Disposition: ADMITTED INPATIENT Admitting Provider: Lorri (Hospitalist) Unit Admitted: IMCU Referrals: CLAUDIO NEGRON MD [Primary Care Provider] - Follow up as needed
--- NOTE | 2020-05-13 03:51 | RADIOLOGY REPORT (SQ) ---
EXAM DESCRIPTION: XR CHEST 1 VIEW COMPLETED DATE/TME: 05/13/2020 03:03 CLINICAL HISTORY: 70 years, Female, difficulty breathing, cough, hypoxia COMPARISON: 11/10/2019 chest NUMBER OF VIEWS: 1 TECHNIQUE: Portable chest LIMITATIONS: None. FINDINGS: The heart size is stable. Osteopenia. Small right pleural effusion with minimal adjacent airspace opacity. No pneumothorax IMPRESSION: Small right effusion with minimal adjacent airspace opacity copyright 2010 [employer]- All Rights Reserved
[2020-05-13] MEDS ORDERED: CEFTRIAXONE 1 GM/D5W RTU 1 GM/50 ML RTUPB IV ONE (04:03)
[2020-05-13] MEDS ORDERED: AZITHROMYCIN INJ 500 MG VIAL IV ONE (04:03)
[2020-05-13 04:08] LABS: VENOUS BLOOD BASE EXCESS 4.3 mmol/L; VENOUS BLOOD PCO2 49.8 mmHg (35-63); VENOUS BLOOD PH 7.4 (7.30-7.42)
[2020-05-13] MEDS ORDERED: LORAZEPAM INJ 2 MG/1 ML VIAL IV ONE (04:17)
[2020-05-13 05:48] LABS: APPEARANCE,URINE SLIGHTLY-CLOUDY; BILIRUBIN,URINE SMALL (NEGATIVE); COLOR,URINE AMBER; GLUCOSE, URINE NEGATIVE (NEGATIVE); KETONES,URINE NEGATIVE (NEGATIVE); PROTEIN,URINE 30 mg/dL (NEGATIVE); URINE SPECIFIC GRAVITY 1.026
[2020-05-13] MEDS ORDERED: BUTALB/ACETAMINOPHEN/CAFFEINE 1 TAB EACH PO PRN (10:23)
[2020-05-13] MEDS: ASCORBIC ACID 500 MG TABLET PO SCH ×2 (12:19→19:05)
[2020-05-13] MEDS: ZINC SULFATE 220 MG CAPSULE PO SCH (12:20)
[2020-05-13] MEDS: CHOLECALCIFEROL (D3) 1,000 UNIT (25 MCG) TABLET PO SCH (12:20)
[2020-05-13] MEDS: TRAMADOL HCL 50 MG TABLET PO PRN (12:20)
[2020-05-13] MEDS ORDERED: PHARMACY COMMUNICATION ORDER MC NR (12:45)
[2020-05-13] MEDS: ONDANSETRON HCL INJ/PF 4 MG/2 ML SDV IV PRN (13:18)
--- NOTE | 2020-05-13 14:01 | PDOC H&P ---
History of Present Illness Admission Date/PCP: 05/13/20 06:46 KAITLIN NEGRON MD History of Present Illness: KAMINI FERNANDEZ is a 70 year old female with past medical history significant for permanent A. fib, morbid obesity, COPD, LAKSHMI, choledocholithiasis who presents with a four-day history of progressive nausea/vomiting/shortness of breath/cough/ECHOLS/fevers which came on abruptly at patient's home. Most of the information for this history was obtained from the patient's son who lives with her as the patient is unable to speak clearly and effectively on the BiPAP currently. Patient and family deny any contacts with people under investigation or confirmed positive for COVID. Patient son states that he is out and about around town regularly but typically wears a mask. He does state patient also has a history of hemochromatosis but he does not know what she does to treat this. On admission, patient notable for elevated WBC, lymphopenia, sepsis, negative troponin, normal lipase, normal lactic acid. Chest x-ray showed right small pleural effusion with adjacent airspace opacity. Patient started on appropriate supplements for COVID-19 as well as Remdesivir. Patient requiring BiPAP on 30% oxygen on admission. Tachycardic in A. fib with RVR. Home medications including Xarelto restarted. Patient admitted to [facility] COVID unit. Past Medical History Cardiac Medical History: Reports: Atrial Fibrillation, Hypertension Denies: Myocardial Infarction Pulmonary Medical History: Reports: Chronic Obstructive Pulmonary Disease (COPD), Sleep Apnea Denies: Asthma Neurological Medical History: Denies: Seizures GI Medical History: Reports: Hiatal Hernia Denies: Hepatitis Hematology: Denies: Anemia, Sickle Cell Disease Past Surgical History Past Surgical History: Reports: Herniorrhaphy, Hysterectomy Denies: Amputation, Mastectomy, Pacemaker Social History Information Source: Patient, Relative, Emergency Med Personnel, ON LICENSE OF [facility] Records Lives with: Family Smoking Status: Former Smoker Frequency of Alcohol Use: Occasional Hx Recreational Drug Use: No Drugs: None Hx Prescription Drug Abuse: No - Advance Directive Resuscitation Status: Full Code Surrogate healthcare decision maker:: Tanner Forrest Family History Family History: Reviewed & Not Pertinent, Malignancy Parental Family History Reviewed: Yes Children Family History Reviewed: Yes Sibling(s) Family History Reviewed.: Yes Medication/Allergy Home Medications: Butalb/Acetaminophen/Caffeine [Fioricet (50-325-40 mg) Tablet] 1 tab PO Q8HP PRN 08/05/19 Calcium Carbonate/Vitamin D3 [Os-Raffaele 500-Vit D3 200 Caplet] 1 tab PO DAILY 08/05/19 Cholecalciferol (Vitamin D3) [Vitamin D3 1000 Unit Tablet] 2,000 unit PO DAILY 08/05/19 Omeprazole 20 mg PO QPM 08/05/19 Sotalol HCl [Betapace] 120 mg PO BID 08/05/19 Budesonide/Formoterol Fumarate [Symbicort HFA 80-4.5 mcg Inhaler 6.9 gm] 2 puff IH Q12 15 Days #1 inhaler 08/20/19 Rivaroxaban [Xarelto 10 mg Tablet] 20 mg PO WSUPPER tablet 08/20/19 Brimonidine Tartrate/Timolol [Combigan 0.2%-0.5% Eye Drops] 1 drop OU BID 11/10/19 Diltiazem HCl [Cardizem 30 mg Tablet] 30 mg PO Q12 11/10/19 Tramadol HCl [Ultram 50 mg Tablet] 50 mg PO BIDP PRN 11/10/19 Acetaminophen [Tylenol 325 mg Tablet] 650 mg PO Q4HP PRN tablet 11/17/19 Docusate Sodium [Colace 100 mg Capsule] 100 mg PO DAILY capsule 11/17/19 Ipratropium/Albuterol Sulfate [Duoneb 3 ml Ampul] 3 ml NEB RTQ6HP PRN vial.neb 11/17/19 Nystatin [Mycostatin Topical Powder 15 gm] 1 applic TP BID bottle 11/17/19 Cefdinir 300 mg PO BID #20 capsule 03/19/20 Phenazopyridine HCl [Pyridium 200 mg Tablet] 200 mg PO TID #12 tablet 03/19/20 Allergies/Adverse Reactions: Sulfa (Sulfonamide Antibiotics) Allergy (Verified 08/05/19 07:53) RASH Review of Systems All systems: reviewed and no additional remarkable complaints except as stated - Review of systems per HPI, otherwise negative Physical Exam Vital Signs: Temp Pulse Resp BP Pulse Ox 98.2 F 125 H 30 H 86/77 L 100 05/13/20 12:21 05/13/20 01:49 05/13/20 11:00 05/13/20 11:11 05/13/20 11:00 Intake & Output 05/12/20 05/13/20 05/14/20 06:59 06:59 06:59 Intake Total 2049 Balance 2049 Weight 108.3 kg General appearance: PRESENT: cooperative, mild distress, morbidly obese, well- developed, well-nourished Head exam: PRESENT: atraumatic, normocephalic Eye exam: PRESENT: conjunctiva pink. ABSENT: scleral icterus Mouth exam: PRESENT: moist Respiratory exam: PRESENT: decreased breath sounds, rales - Mild bilateral. ABSENT: rhonchi, wheezes Cardiovascular exam: PRESENT: irregular rhythm, tachycardia. ABSENT: diastolic murmur, rubs, systolic murmur GI/Abdominal exam: PRESENT: normal bowel sounds, soft. ABSENT: distended, guarding, mass, organolmegaly, rebound, tenderness Rectal exam: PRESENT: deferred Extremities exam: ABSENT: pedal edema Neurological exam: PRESENT: alert, awake, oriented to person, oriented to place, oriented to time, oriented to situation Psychiatric exam: PRESENT: appropriate affect, normal mood Skin exam: PRESENT: dry, intact, warm Results Laboratory Results: 05/13/20 02:15 05/13/20 02:15 05/13/20 05/13/20 05/13/20 02:15 02:15 03:50 WBC 12.9 H RBC 4.72 Hgb 13.0 Hct 40.9 MCV 87 MCH 27.6 MCHC 31.8 L RDW 18.3 H Plt Count 411 Seg Neutrophils % 87.2 H VBG pH 7.40 VBG pCO2 49.8 VBG HCO3 30.0 VBG Base Excess 4.3 Sodium 137.0 Potassium 4.7 Chloride 101 Carbon Dioxide 27 Anion Gap 9 BUN 7 Creatinine 0.53 Est GFR ( Amer) > 60 Glucose 131 H Lactic Acid Calcium 9.0 Total Bilirubin 0.9 AST 37 H Alkaline Phosphatase 95 Total Protein 6.4 Albumin 3.3 L Lipase 32.2 Urine Color Urine Appearance Urine pH Ur Specific [place] Urine Protein Urine Glucose (UA) Urine Ketones Urine Blood Urine RBC (Auto) 05/13/20 05/13/20 05/13/20 05:25 05:50 09:03 WBC RBC Hgb Hct MCV MCH MCHC RDW Plt Count Seg Neutrophils % VBG pH VBG pCO2 VBG HCO3 VBG Base Excess Sodium Potassium Chloride Carbon Dioxide Anion Gap BUN Creatinine Est GFR ( Amer) Glucose Lactic Acid 1.2 1.5 Calcium Total Bilirubin AST Alkaline Phosphatase Total Protein Albumin Lipase Urine Color AMANDEEP Urine Appearance SLIGHTLY-CLOUDY Urine pH 5.0 Ur Specific [place] 1.026 Urine Protein 30 H Urine Glucose (UA) NEGATIVE Urine Ketones NEGATIVE Urine Blood NEGATIVE Urine RBC (Auto) 1 05/13/20 02:15 Troponin I < 0.012 Impressions: Chest X-Ray 05/13/20 03:03 IMPRESSION: Small right effusion with minimal adjacent airspace opacity copyright 2010 [employer]- All Rights Reserved Assessment and Plan - Diagnosis (1) Suspected severe acute respiratory syndrome coronavirus 2 (SARS-CoV-2) infection Is this a current diagnosis for this admission?: Yes Plan: No known contacts with coronavirus at home, no family members have been tested besides her here Started coronavirus supplements/vitamins Remdesivir COVID testing pending Consider convalescent plasma though data is mixed on this treatment Cautious use of IV fluids in the setting of A. fib with RVR and history of diastolic CHF Continue ceftriaxone/azithromycin for possible right-sided bacterial pneumonia given the atypical nature of chest x-ray (2) Permanent atrial fibrillation Is this a current diagnosis for this admission?: Yes Plan: Admission previously for A. fib with RVR Heart rate in the 140s to 150s at times on admission Restart home medications Restart home Xarelto Consider cardiology consult if A. fib rate is not controlled on home medications (3) Sepsis Qualifiers: Sepsis type: sepsis due to unspecified organism Sepsis acute organ dysfunction status: with acute organ dysfunction Severe sepsis acute organ dysfunction type: acute respiratory failure Acute respiratory failure type: with hypoxia Severe sepsis shock status: without septic shock Qualified Code(s): A41.9 - Sepsis, unspecified organism; R65.20 - Severe sepsis without septic shock; J96.01 - Acute respiratory failure with hypoxia Is this a current diagnosis for this admission?: Yes Plan: Due to COVID-19 pneumonia versus bacterial pneumonia versus combined Cautious use of IV fluids in the setting of chronic diastolic CHF Antibiotics and Remdesivir as above Close hemodynamic monitoring (4) Morbid obesity with BMI of 40.0-44.9, adult Is this a current diagnosis for this admission?: Yes (5) Atrial fibrillation with rapid ventricular response Is this a current diagnosis for this admission?: Yes Plan: Rate control medications Anticoagulation with Xarelto continued Consider cardiology consult if rate remains uncontrolled (6) Obstructive sleep apnea Is this a current diagnosis for this admission?: Yes Plan: [facility] CPAP available if patient chooses to use this when stabilized, already on BiPAP on admission (7) Suspected COVID-19 virus infection Is this a current diagnosis for this admission?: Yes (8) Chronic low back pain Is this a current diagnosis for this admission?: Yes Plan: Stable - Time Time Spent with patient: 35 or more minutes Medications reviewed and adjusted accordingly: Yes Anticipated Discharge Disposition: Nursing Home Facility Anticipated Discharge Timeframe: within 72 hours - Inpatient Certification Based on my medical assessment, after consideration of the patient's comorbidities, presenting symptoms, or acuity I expect that the services needed warrant INPATIENT care.: Yes I certify that my determination is in accordance with my understanding of Medicare's requirements for reasonable and necessary INPATIENT services [42 CFR 412.3e].: Yes Medical Necessity: Significant Comorbidiites Make Outpatient Treatment Too [place], Need Close Monitoring Due to Risk of Patient Decompensation, Need for IV Antibiotics, Risk of Complication if Not Cared For in Hospital, Risk of Diagnosis Which Will Require Inpatient Eval/Care/Monitoring
--- NOTE | 2020-05-13 14:02 | ADVANCED CARE ---
- Diagnosis (1) Suspected severe acute respiratory syndrome coronavirus 2 (SARS-CoV-2) infection Diagnosis Current: Yes (2) Permanent atrial fibrillation Diagnosis Current: Yes (3) Sepsis Diagnosis Current: Yes (4) Morbid obesity with BMI of 40.0-44.9, adult Diagnosis Current: Yes (5) Atrial fibrillation with rapid ventricular response Diagnosis Current: Yes (6) Obstructive sleep apnea Diagnosis Current: Yes (7) Suspected COVID-19 virus infection Diagnosis Current: Yes (8) Chronic low back pain Diagnosis Current: Yes Attendance: Patient's son, and POA Resuscitation Status: Full Code Discussion: All aspects of code status discussed with patient/POA including cardioversion, chest compressions, and intubation and the patient/POA indicated they wish to be full code MPOA is designated as: Tanner Forrest Time Spent: Greater than 16 minutes
[2020-05-13] MEDS ORDERED: DILTIAZEM HCL 30 MG TABLET PO SCH ×2 (16:00→22:00)
[2020-05-13] MEDS: ACETAMINOPHEN 325 MG TABLET PO PRN ×2 (16:29→23:20)
[2020-05-13] MEDS: SOTALOL HCL 80 MG TABLET PO SCH ×2 (16:29→22:16)
--- NOTE | 2020-05-13 17:07 | EKG REPORT ---
SEVERITY:- BORDERLINE ECG - SINUS TACHYCARDIA BORDERLINE LEFT AXIS DEVIATION LOW VOLTAGE IN FRONTAL LEADS : Confirmed by: Holly Crane 13-May-2020 17:06:17
[2020-05-13] MEDS: RIVAROXABAN 10 MG TABLET PO SCH (17:22)
--- NOTE | 2020-05-13 17:58 | Progress Note ---
Provider Note Provider Note: Consulted Dr. Metz discussed the case with him in detail. He recommended giving the patient IV digoxin and he agreed to see the patient in consult tonight. Appreciate his help.
[2020-05-13] MEDS ORDERED: DIGOXIN 0.125 MG TABLET PO SCH (18:00)
[2020-05-13] MEDS ORDERED: (PENDING PHARMACY ID) (Sotalol Hcl [Betapace] 120 MG) PO SCH (18:00)
[2020-05-13] MEDS ORDERED: DIGOXIN INJ 0.5 MG/2 ML AMPULE IV ONE (18:45)
[2020-05-13] MEDS: NYSTATIN TOPICAL POWDER 15 GM TP SCH (19:04)
[2020-05-13] MEDS: RINGERS SOLUTION,LACTATED 1,000 ML IV PRN (20:20)
[2020-05-13] MEDS ORDERED: SOTALOL HCL 80 MG TABLET ONE (21:53)
[2020-05-13] MEDS ORDERED: SOTALOL HCL 80 MG TABLET PO SCH (22:00)
[2020-05-13] MEDS: MELATONIN 5 MG TABLET PO SCH (22:16)
--- NOTE | 2020-05-13 22:45 | PDOC CONSULTATION ---
Consultation-Blank Consultation: CARDIOLOGY CONSULTATION by Dr. Elodia Ferreira on 05/13/2020. Patient seen at 6 PM. 60 minutes spent on the patient more than 50% of time spent in direct patient care. REASON FOR CONSULTATION: Patient with history of proximal atrial fibrillation maintaining sinus rhythm on sotalol has reverted back to atrial fibrillation with rapid ventricular response. Hence management of this. Consult REQUESTING PHYSICIAN[facility] HISTORY OF PRESENT ILLNESS: Note with the patient CPAP and she is slightly drowsy and hence not very clear about the history. History obtained from the patient's chart and after discussions with Dr. Lemus. She is a 70-year-old obese female with known history of proximal atrial fibrillation maintaining sinus rhythm, with no history of coronary artery disease or MS and no history of congestive heart failure, history of hemochromatosis, history of hypertension, who admitted with 3 to 4-day history of malaise and fever and is now suspected to have COVID related pneumonia. She has no history of COPD. She has history of sleep apnea and uses CPAP. She nods her head saying she has no chest pain she does have shortness of breath. There is orthopnea at present but no PND or leg edema. She has no anginal symptoms. The patient is chronically on Xarelto and has not missed a dose. After several minutes of questioning I understand that the patient went into rapid palpitations/recurrence of atrial fibrillation with rapid ventricular response about a day or so prior to her admission but her 1:57 AM EKG shows sinus tachycardia. At present monitor strips show atrial fibrillation with rapid ventricular response.. She has no b leeding complications on Xarelto. And there is no history of TIA or CVA. She states she recently had an echocardiogram by Dr. Gamez her mastic man in [place], and she guesses that it was normal. Past Medical History Cardiac Medical History: Reports: Atrial Fibrillation, Hypertension Denies: Myocardial Infarction Pulmonary Medical History: Reports: Chronic Obstructive Pulmonary Disease (COPD), Sleep Apnea Denies: Asthma Neurological Medical History: Denies: Seizures GI Medical History: Reports: Hiatal Hernia Denies: Hepatitis Hematology: Denies: Anemia, Sickle Cell Disease Past Surgical History Past Surgical History: Reports: Herniorrhaphy, Hysterectomy Denies: Amputation, Mastectomy, Pacemaker Social History Information Source: Patient, Relative, Emergency Med Personnel, [facility] Records Lives with: Family Smoking Status: Former Smoker Frequency of Alcohol Use: Occasional Hx Recreational Drug Use: No Drugs: None Hx Prescription Drug Abuse: No - Advance Directive Resuscitation Status: Full Code Surrogate healthcare decision maker:: Tanner Forrest Family History Family History: Reviewed & Not Pertinent, Malignancy Parental Family History Reviewed: Yes Children Family History Reviewed: Yes Sibling(s) Family History Reviewed.: Yes Medication/Allergy Home Medications: Butalb/Acetaminophen/Caffeine [Fioricet (50-325-40 mg) Tablet] 1 tab PO Q8HP PRN 08/05/19 Calcium Carbonate/Vitamin D3 [Os-Raffaele 500-Vit D3 200 Caplet] 1 tab PO DAILY 08/05/19 Cholecalciferol (Vitamin D3) [Vitamin D3 1000 Unit Tablet] 2,000 unit PO DAILY 08/05/19 Omeprazole 20 mg PO QPM 08/05/19 Sotalol HCl [Betapace] 120 mg PO BID 08/05/19 Budesonide/Formoterol Fumarate [Symbicort HFA 80-4.5 mcg Inhaler 6.9 gm] 2 puff IH Q12 15 Days #1 inhaler 08/20/19 Rivaroxaban [Xarelto 10 mg Tablet] 20 mg PO WSUPPER tablet 08/20/19 Brimonidine Tartrate/Timolol [Combigan 0.2%-0.5% Eye Drops] 1 drop OU BID 11/10/19 Diltiazem HCl [Cardizem 30 mg Tablet] 30 mg PO Q12 11/10/19 Tramadol HCl [Ultram 50 mg Tablet] 50 mg PO BIDP PRN 11/10/19 Acetaminophen [Tylenol 325 mg Tablet] 650 mg PO Q4HP PRN tablet 11/17/19 Docusate Sodium [Colace 100 mg Capsule] 100 mg PO DAILY capsule 11/17/19 Ipratropium/Albuterol Sulfate [Duoneb 3 ml Ampul] 3 ml NEB RTQ6HP PRN vial.neb 11/17/19 Nystatin [Mycostatin Topical Powder 15 gm] 1 applic TP BID bottle 11/17/19 Cefdinir 300 mg PO BID #20 capsule 03/19/20 Phenazopyridine HCl [Pyridium 200 mg Tablet] 200 mg PO TID #12 tablet 03/19/20 Allergies/Adverse Reactions: Sulfa (Sulfonamide Antibiotics) Allergy (Verified 08/05/19 07:53) RASH Current Medications Generic Name Dose Route Start Last Admin Trade Name Freq PRN Reason Stop Dose Admin Acetaminophen 650 mg 05/13/20 10:14 05/14/20 11:04 Tylenol 325 Mg Tablet PO 06/12/20 10:13 650 mg Q4HP PRN Administration pain or fever Acetaminophen/Butalbital/Caffeine 1 tab 05/13/20 10:23 Fioricet (50-325-40 Mg) Tablet PO 06/12/20 10:22 Q8HP PRN MIGRAINES Albuterol/Ipratropium 3 ml 05/13/20 10:14 Duoneb 3 Ml Ampul NEB 06/12/20 10:13 RTQ2HP PRN SHORTNESS OF BREATH Ascorbic Acid 500 mg 05/13/20 11:00 05/14/20 10:57 Vitamin C 500 Mg Tablet PO 06/12/20 10:59 500 mg BID CHALO Administration Brimonidine Tartrate 1 drop 05/14/20 10:00 05/14/20 10:59 Alphagan 0.2% Oph Soln 5 Ml OU 06/13/20 09:59 1 drop BID CHALO Administration Cholecalciferol 2,000 unit 05/13/20 11:00 05/14/20 10:57 Vitamin D3 1000 Unit Tablet PO 06/12/20 10:59 2,000 unit DAILY CHALO Administration Digoxin 0.25 mg 05/14/20 13:00 Lanoxin Inj 0.5 Mg/2 Ml Ampule IV 05/14/20 13:01 NOW ONE Docusate Sodium 100 mg 05/14/20 10:00 05/14/20 10:57 Colace Udc 100 Mg/10 Ml Oral Soln PO 06/13/20 09:59 100 mg DAILY CHALO Administration Fluticasone/Vilanterol 1 inh 05/14/20 10:00 05/14/20 11:00 Breo 100-25 Mcg Ellipta 14 Dose/Dpi IH 06/13/20 09:59 1 puff DAILY CHALO Administration Lactated Ringer's 1,000 mls @ 75 mls/hr 05/13/20 17:53 05/14/20 10:50 Lactated Ringers 1000 Ml Iv Soln IV 06/12/20 17:52 75 mls/hr CONTINUOUS PRN Administration THIS MED IS NOT "PRN" Azithromycin 500 mg/ Dextrose 250 mls @ 250 mls/hr 05/14/20 06:00 05/14/20 08:39 IV 05/21/20 05:59 Infused Q6AM CHALO Infusion Ceftriaxone Sodium/Dextrose 2 gm in 50 mls @ 100 mls/hr 05/14/20 05:00 05/14/20 04:35 Rocephin Rtu 2 Gm/D5w 50 Ml Premix Bag IV 05/21/20 04:59 100 mls/hr 0500 CHALO 100 mls/hr Administration Magnesium Sulfate/Dextrose 1 gm in 100 mls @ 100 mls/hr 05/14/20 12:00 05/14/20 12:19 Magnesium Sulfate Rtu-D5w 1 Gm/100 Ml Premix IV 05/14/20 12:59 Infused NOW ONE Infusion Melatonin 5 mg 05/13/20 22:00 05/13/20 22:16 Melatonin 5 Mg Tablet PO 06/12/20 21:59 5 mg QHS CHALO Administration Nystatin 1 applic 05/13/20 18:00 05/14/20 10:59 Mycostatin Topical Powder 15 Gm TP 05/20/20 17:59 1 applic BID CHALO Administration Ondansetron HCl 4 mg 05/13/20 10:14 05/13/20 13:18 Zofran Inj/Pf 4 Mg/2 Ml Sdv IV 06/12/20 10:13 4 mg Q4HP PRN Administration FOR NAUSEA/VOMITING Ondansetron HCl 4 mg 05/13/20 10:14 Zofran Odt 4 Mg Tablet PO 06/12/20 10:13 Q4HP PRN FOR NAUSEA/VOMITING Pantoprazole Sodium 20 mg 05/14/20 06:00 05/14/20 07:[address] Tablet PO 06/13/20 05:59 20 mg Q6AM CHALO Administration Pharmacy Profile Note 1 each 05/13/20 12:45 Medication Communication Order 06/12/20 12:44 .NOTICE NR Phenazopyridine HCl 200 mg 05/13/20 10:23 Pyridium 200 Mg Tablet PO 06/12/20 10:22 TIDP PRN bladder pain Rivaroxaban 20 mg 05/13/20 17:00 05/13/20 17:22 Xarelto 10 Mg Tablet PO 06/12/20 16:59 20 mg WSUPPER CHALO Administration Sotalol HCl 120 mg 05/13/20 16:30 05/14/20 11:02 Betapace 80 Mg Tablet PO 06/12/20 16:29 120 mg Q12 CHALO Administration Timolol Maleate 1 drop 05/14/20 10:00 05/14/20 10:59 Timoptic 0.5% Oph Soln 5 Ml OU 06/13/20 09:59 1 drop BID CHALO Administration Tramadol HCl 50 mg 05/13/20 10:23 05/14/20 04:38 Ultram 50 Mg Tablet PO 05/20/20 10:22 50 mg BIDP PRN Administration FOR PAIN Zinc Sulfate 220 mg 05/13/20 12:00 05/14/20 10:57 Zinc-220 Capsule PO 06/12/20 11:59 220 mg DAILY CHALO Administration Discontinued Medications Generic Name Dose Route Start Last Admin Trade Name Freq PRN Reason Stop Dose Admin Acetaminophen 975 mg 05/13/20 03:03 05/13/20 03:28 Tylenol 325 Mg Tablet PO 05/13/20 03:04 Not Given NOW ONE Azithromycin 500 mg 05/13/20 04:03 05/13/20 05:59 Zithromax Inj 500 Mg Vial IV 05/13/20 04:04 500 mg IVBAG (ED) ONE Administration Azithromycin 500 mg 05/14/20 06:00 Zithromax Inj 500 Mg Vial IV 05/14/20 07:00 ASDIR PRN Azithromycin Confirm 05/14/20 06:11 05/14/20 07:17 Zithromax Inj 500 Mg Vial Administered 05/14/20 06:12 Not Given Dose 500 mg IV .STK-MED ONE Digoxin 0.125 mg 05/13/20 18:00 Lanoxin 0.125 Mg Tablet PO 06/12/20 17:59 DAILY CHALO Digoxin 0.25 mg 05/13/20 18:45 05/13/20 20:06 Lanoxin Inj 0.5 Mg/2 Ml Ampule IV 05/13/20 18:46 0.25 mg NOW ONE Administration Diltiazem HCl 30 mg 05/13/20 22:00 Cardizem 30 Mg Tablet PO 06/12/20 21:59 Q12 CHALO Diltiazem HCl 30 mg 05/13/20 16:00 05/13/20 16:30 Cardizem 30 Mg Tablet PO 06/12/20 15:59 30 mg Q12 CHALO Administration Enoxaparin Sodium 40 mg 05/14/20 10:00 Lovenox Inj 40 Mg/0.4 Ml Disp.Syrin SUBCUT 06/13/20 09:59 DAILY CHALO Sodium Chloride 1,000 mls @ 0 mls/hr 05/13/20 03:06 05/13/20 04:35 Nacl 0.9% 1000 Ml Iv Soln IV 05/13/20 03:07 Infused BOLUS ONE Infusion Wide Open Ceftriaxone Sodium/Dextrose 1 gm in 50 mls @ 100 mls/hr 05/13/20 04:03 05/13/20 04:42 Rocephin Rtu 1 Gm/D5w 50 Ml Premix IV 05/13/20 04:32 Infused NOW ONE Infusion Sodium Chloride 1,000 mls @ 0 mls/hr 05/13/20 04:55 05/13/20 05:56 Nacl 0.9% 1000 Ml Iv Soln IV 05/13/20 04:56 Infused BOLUS ONE Infusion Wide Open Ceftriaxone Sodium/Dextrose 2 gm in 50 mls @ 100 mls/hr 05/14/20 06:00 Rocephin Rtu 2 Gm/D5w 50 Ml Premix Bag IV 05/21/20 05:59 Q6AM CHALO Lorazepam 0.5 mg 05/13/20 04:17 05/13/20 04:23 Ativan Inj 2 Mg/1 Ml Vial IV 05/13/20 04:18 0.5 mg NOW ONE Administration Morphine Sulfate 3 mg 05/13/20 03:04 05/13/20 03:27 Morphine 10 Mg/Ml Inj IV 05/13/20 03:05 3 mg NOW ONE Administration Ondansetron HCl 4 mg 05/13/20 03:04 05/13/20 03:28 Zofran Inj/Pf 4 Mg/2 Ml Sdv IV 05/13/20 03:05 4 mg NOW ONE Administration Sotalol HCl 120 mg 05/13/20 22:00 Betapace 80 Mg Tablet PO 06/12/20 21:59 Q12 CHALO Sotalol HCl Confirm 05/13/20 21:53 05/13/20 22:16 Betapace 80 Mg Tablet Administered 05/13/20 21:54 Not Given Dose 80 mg .ROUTE .STK-MED ONE Review of Systems All systems: reviewed and no additional remarkable complaints except as stated - Review of systems per HPI, otherwise negative. Note it is difficult to obtain review of symptoms since the patient is on BiPAP and is slightly drowsy and cannot clearly understand what she is saying through her BiPAP. PHYSICAL EXAMINATION: The patient is moderately obese. In mild distress due to shortness of breath. Selected Entries 05/13/20 05/13/20 17:10 17:32 Temperature 98.7 F Temperature Oral Source Heart Rate ( 135 Monitors) Respiratory 31 H Rate Blood Pressure 108/61 Blood Pressure 76 Mean O2 Sat by Pulse 97 Oximetry Oxygen Delivery Bi-pap Method ( includes room air) Percent of 35 Oxygen HEAD: Is atraumatic normocephalic. PUPILS are equal round regular reactive to light accommodation extraocular movements are normal. There is no conjunctival pallor. There is no scleral icterus. ENT is negative note patient is on BiPAP. NECK: Supple. There is no JVD. Carotids are equal there is no bruits. There is no lymphadenopathy. There is no goiter. There is no accessory muscle respiration use. Trachea central. LUNGS: Shows a few scattered rhonchi. There is dry crackles in the right base. There is no rales of CHF. HEART: S1-S2 is heard. S1 is of variable intensity. The patient is tachycardic. There is systolic murmur left sternal border and the apex there is no rub. ABDOMEN: Is obese. Nontender there is no hepatosplenomegaly. Bowel sounds are well heard. There is no tender areas masses. EXTREMITIES: Femorals are deep. There is no femoral bruits. Leg pulses are well felt. There is no pedal edema. There is no DVT or cellulitis. There is no cyanosis or clubbing. MASTER CONTROL OPERATOR: The patient is drowsy but without any focal deficits. PSYCHIATRIC: In spite of her drowsiness the patient judgment insight are intact and affect is normal. EKG: On shows sinus tachycardia. Nonspecific IVCD minor. Diffuse nonspecific ST-T changes. Chest X-Ray 05/13/20 03:03 IMPRESSION: Small right effusion with minimal adjacent airspace opacity copyright 2010 [employer]- All Rights Reserved Labs- Entire Visit 05/13/20 05/13/20 05/13/20 02:15 02:15 02:15 WBC 12.9 H RBC 4.72 Hgb 13.0 Hct 40.9 MCV 87 MCH 27.6 MCHC 31.8 L RDW 18.3 H Plt Count 411 Lymph % (Auto) 5.7 L Luna % (Auto) 6.3 Eos % (Auto) 0.0 Baso % (Auto) 0.8 Absolute Neuts (auto) 11.3 H Absolute Lymphs (auto) 0.7 Absolute Monos (auto) 0.8 Absolute Eos (auto) 0.0 Absolute Basos (auto) 0.1 Seg Neutrophils % 87.2 H VBG pH VBG pCO2 VBG HCO3 VBG Base Excess Sodium 137.0 Potassium 4.7 Chloride 101 Carbon Dioxide 27 Anion Gap 9 BUN 7 Creatinine 0.53 Est GFR ( Amer) > 60 Est GFR (MDRD) Non-Af > 60 Glucose 131 H Lactic Acid Calcium 9.0 Phosphorus Magnesium Total Bilirubin 0.9 Direct Bilirubin 0.5 H Neonat Total Bilirubin Not Reportable Neonat Direct Bilirubin Not Reportable Neonat Indirect Bili Not Reportable AST 37 H ALT 12 Alkaline Phosphatase 95 Troponin I < 0.012 Total Protein 6.4 Albumin 3.3 L Lipase 32.2 Urine Color Urine Appearance Urine pH Ur Specific [place] Urine Protein Urine Glucose (UA) Urine Ketones Urine Blood Urine Nitrite (Reflex) Urine Bilirubin Urine Urobilinogen Leukocyte Esterase Rfl Urine RBC (Auto) Urine Bacteria (Auto) Urine WBC (Reflex) Squamous Epi Cells Auto Urine Mucus (Auto) Urine Ascorbic Acid COVID-19 Source 05/13/20 05/13/20 05/13/20 03:50 05:25 05:50 WBC RBC Hgb Hct MCV MCH MCHC RDW Plt Count Lymph % (Auto) Luna % (Auto) Eos % (Auto) Baso % (Auto) Absolute Neuts (auto) Absolute Lymphs (auto) Absolute Monos (auto) Absolute Eos (auto) Absolute Basos (auto) Seg Neutrophils % VBG pH 7.40 VBG pCO2 49.8 VBG HCO3 30.0 VBG Base Excess 4.3 Sodium Potassium Chloride Carbon Dioxide Anion Gap BUN Creatinine Est GFR ( Amer) Est GFR (MDRD) Non-Af Glucose Lactic Acid 1.2 Calcium Phosphorus Magnesium Total Bilirubin Direct Bilirubin Neonat Total Bilirubin Neonat Direct Bilirubin Neonat Indirect Bili AST ALT Alkaline Phosphatase Troponin I Total Protein Albumin Lipase Urine Color AMANDEEP Urine Appearance SLIGHTLY-CLOUDY Urine pH 5.0 Ur Specific [place] 1.026 Urine Protein 30 H Urine Glucose (UA) NEGATIVE Urine Ketones NEGATIVE Urine Blood NEGATIVE Urine Nitrite (Reflex) NEGATIVE Urine Bilirubin SMALL H Urine Urobilinogen 4.0 H Leukocyte Esterase Rfl NEGATIVE Urine RBC (Auto) 1 Urine Bacteria (Auto) 3+ Urine WBC (Reflex) 3 Squamous Epi Cells Auto 1 Urine Mucus (Auto) FEW Urine Ascorbic Acid NEGATIVE COVID-19 Source 05/13/20 05/13/20 06:30 09:03 WBC RBC Hgb Hct MCV MCH MCHC RDW Plt Count Lymph % (Auto) Luna % (Auto) Eos % (Auto) Baso % (Auto) Absolute Neuts (auto) Absolute Lymphs (auto) Absolute Monos (auto) Absolute Eos (auto) Absolute Basos (auto) Seg Neutrophils % VBG pH VBG pCO2 VBG HCO3 VBG Base Excess Sodium Potassium Chloride Carbon Dioxide Anion Gap BUN Creatinine Est GFR ( Amer) Est GFR (MDRD) Non-Af Glucose Lactic Acid 1.5 Calcium Phosphorus Magnesium Total Bilirubin Direct Bilirubin Neonat Total Bilirubin Neonat Direct Bilirubin Neonat Indirect Bili AST ALT Alkaline Phosphatase Troponin I Total Protein Albumin Lipase Urine Color Urine Appearance Urine pH Ur Specific [place] Urine Protein Urine Glucose (UA) Urine Ketones Urine Blood Urine Nitrite (Reflex) Urine Bilirubin Urine Urobilinogen Leukocyte Esterase Rfl Urine RBC (Auto) Urine Bacteria (Auto) Urine WBC (Reflex) Squamous Epi Cells Auto Urine Mucus (Auto) Urine Ascorbic Acid COVID-19 Source See comment IMPRESSION/RECOMMENDATION: 1. Atrial fibrillation with rapid ventricular response. This is recurrence of atrial fibrillation due to her current lung condition. Patient has a history of proximal atrial fibrillation maintaining sinus rhythm on sotalol. Patient also has been is on chronic anticoagulation with Xarelto. Continue sotalol and Xarelto. We will give 1 dose of digoxin now since the patient's blood pressure is tenuous. 2. Suspected COVID related pneumonia: Continue antibiotics continue BiPAP and oxygen supplementation. 3. History of hypertension: At present blood pressure on the lower side. 4. History of hemochromatosis: At present does not seem to be any acute problems from this. 5. History of sleep apnea: Present patient continues to be on BiPAP. 6. Obesity. Medications reviewed. Medical regimen and management plan discussed with attending provider on the case. Medical decision making is of high complexity. 60-minute spent as patient more than 50% of time spent in direct patient care. Will follow
[2020-05-14] MEDS: CEFTRIAXONE 2 GM/D5W RTU 2 GM/50 ML RTUPB IV SCH (04:35)
[2020-05-14] MEDS: TRAMADOL HCL 50 MG TABLET PO PRN ×3 (04:38→21:45)
[2020-05-14] MEDS ORDERED: CEFTRIAXONE 2 GM/D5W RTU 2 GM/50 ML RTUPB IV SCH (06:00)
[2020-05-14] MEDS ORDERED: AZITHROMYCIN INJ 500 MG VIAL IV PRN (06:00)
[2020-05-14] MEDS ORDERED: AZITHROMYCIN INJ 500 MG VIAL IV ONE (06:11)
[2020-05-14 06:29] LABS: ABSOLUTE MONOCYTES (AUTO) 1.5 10^3/uL (0.1-1.4); BASOPHILS % (AUTO) 0.2 % (0-2); HEMATOCRIT 36.3 % (36.0-47.0); HEMOGLOBIN 11.5 g/dL (12.0-15.5); LYMPHOCYTES % (AUTO) 5.5 % (13-45); MEAN CORPUSCULAR HEMOGLOBIN 27.9 pg (27.0-33.4); MEAN CORPUSCULAR HGB CONC 31.8 g/dL (32.0-36.0); MEAN CORPUSCULAR VOLUME 88 fl (80-97); MONOCYTES % (AUTO) 8.1 % (3-13); PLATELET COUNT 297 10^3/uL (150-450); RED BLOOD COUNT 4.14 10^6/uL (3.72-5.28); RED CELL DISTRIBUTION WIDTH 18.3 % (11.5-14.0); SEGMENTED NEUTROPHILS % (AUTO) 86.2 % (42-78); TOTAL CELLS COUNTED % (AUTO) 100 %; WHITE BLOOD COUNT 18.5 10^3/uL (4.0-10.5)
[2020-05-14 06:52] LABS: ANION GAP 6 (5-19); BLOOD UREA NITROGEN 9 mg/dL (7-20); CALCIUM 8.2 mg/dL (8.4-10.2); CARBON DIOXIDE 25 mmol/L (22-30); CHLORIDE 104 mmol/L (98-107); GLUCOSE 89 mg/dL (75-110); PHOSPHORUS 3.1 mg/dL (2.5-4.5); POTASSIUM 4.2 mmol/L (3.6-5.0)
[2020-05-14] MEDS: PANTOPRAZOLE SODIUM 20 MG TABLET.DR PO SCH (07:38)
[2020-05-14] MEDS: AZITHROMYCIN 500 MG in DEXTROSE 5%-WATER 250 ML IV SCH (07:39)
[2020-05-14] MEDS ORDERED: ENOXAPARIN SODIUM INJ 40 MG/0.4 ML DISP.SYRIN SUBCUT SCH (10:00)
[2020-05-14] MEDS: RINGERS SOLUTION,LACTATED 1,000 ML IV PRN (10:50)
[2020-05-14] MEDS ORDERED: MAGNESIUM SULFATE INJ 8 MEQ/2 ML IV ONE (10:57)
[2020-05-14] MEDS: ZINC SULFATE 220 MG CAPSULE PO SCH (10:57)
[2020-05-14] MEDS: DOCUSATE SODIUM 100 MG/10 ML UDC PO SCH (10:57)
[2020-05-14] MEDS: CHOLECALCIFEROL (D3) 1,000 UNIT (25 MCG) TABLET PO SCH (10:57)
[2020-05-14] MEDS: ASCORBIC ACID 500 MG TABLET PO SCH ×2 (10:57→17:42)
[2020-05-14] MEDS: TIMOLOL MALEATE 0.5% OPH SOLN 5 ML OU SCH ×2 (10:59→17:44)
[2020-05-14] MEDS: BRIMONIDINE TARTRATE 0.2% OPH SOLN 5 ML OU SCH ×2 (10:59→17:47)
[2020-05-14] MEDS: NYSTATIN TOPICAL POWDER 15 GM TP SCH ×2 (10:59→17:43)
[2020-05-14] MEDS: FLUTICASONE/VILANTEROL 100-25 MCG/DOSE IH SCH (11:00)
[2020-05-14] MEDS: SOTALOL HCL 80 MG TABLET PO SCH ×2 (11:02→21:46)
[2020-05-14] MEDS: ACETAMINOPHEN 325 MG TABLET PO PRN (11:04)
[2020-05-14] MEDS ORDERED: MAGNESIUM SULFATE/D5W 1 GM/100 ML RTUPB IV ONE (12:00)
[2020-05-14] MEDS ORDERED: DIGOXIN INJ 0.5 MG/2 ML AMPULE IV ONE ×2 (13:00→17:30)
[2020-05-14] MEDS: ONDANSETRON HCL INJ/PF 4 MG/2 ML SDV IV PRN ×2 (13:04→21:45)
--- NOTE | 2020-05-14 16:46 | PDOC PROGRESS REPORT ---
Subjective Subjective:: KAMINI FERNANDEZ is a 70 year old female with past medical history significant for permanent A. fib, morbid obesity, COPD, LAKSHMI, choledocholithiasis who presents with a four-day history of progressive nausea/vomiting/shortness of breath/cough/ECHOLS/fevers which came on abruptly at patient's home. Most of the information for this history was obtained from the patient's son who lives with her as the patient is unable to speak clearly and effectively on the BiPAP currently. Patient and family deny any contacts with people under investigation or confirmed positive for COVID. Patient son states that he is out and about around town regularly but typically wears a mask. He does state patient also has a history of hemochromatosis but he does not know what she does to treat this. On admission, patient notable for elevated WBC, lymphopenia, sepsis, negative troponin, normal lipase, normal lactic acid. Chest x-ray showed right small pleural effusion with adjacent airspace opacity. Patient started on appropriate supplements for COVID-19 as well as Remdesivir. Patient requiring BiPAP on 30% oxygen on admission. Tachycardic in A. fib with RVR. Home medications including Xarelto restarted. Patient admitted to [facility] COVID unit. 05/14/2020 Patient heart rate significantly improved after starting on digoxin and the patient has been seen by Dr. Ferreira and I discussed the case with them in detail today. Likely patient's A. fib with RVR as result of her coronavirus pneumonia and respiratory failure. I discussed the case with nursing as well and stated the patient is being maintained at 35% FiO2 currently. I have ordered Remdesivir but this order is still pending in the pharmacy. Patient is still febrile at 100.9, tachycardic, tachypneic, still requiring BiPAP frequently for respiratory support. WBC is higher at 18.5 and hemoglobin is lower, magnesium low and this is being repleted. Patient is minimally conversant but does not voice any complaints today. Reason For Visit: COVID 19,PNEUMONIA Physical Exam Vital Signs: Temp Pulse Resp BP Pulse Ox 100.8 F H 117 H 25 H 107/54 L 98 05/14/20 15:00 05/14/20 12:00 05/14/20 15:47 05/14/20 14:43 05/14/20 15:47 Intake & Output 05/13/20 05/14/20 05/15/20 06:59 06:59 06:59 Intake Total 2049 94 1256 Output Total 120 370 Balance 2049 886 Weight 108.3 kg 108.7 kg Exam: General appearance: PRESENT: cooperative, mild distress, morbidly obese, well-developed, well-nourished, appears extremely tired, minimally conversant Head exam: PRESENT: atraumatic, normocephalic Eye exam: PRESENT: conjunctiva pink. ABSENT: scleral icterus Mouth exam: PRESENT: moist Respiratory exam: PRESENT: decreased breath sounds, rales - Mild bilateral. ABSENT: rhonchi, wheezes Cardiovascular exam: PRESENT: irregular rhythm, tachycardia. ABSENT: diastolic murmur, rubs, systolic murmur GI/Abdominal exam: PRESENT: normal bowel sounds, soft. ABSENT: distended, guarding, mass, organolmegaly, rebound, tenderness Rectal exam: PRESENT: deferred Extremities exam: ABSENT: pedal edema Neurological exam: PRESENT: alert, awake, oriented to person, oriented to place, oriented to time, oriented to situation Psychiatric exam: PRESENT: appropriate affect, normal mood Skin exam: PRESENT: dry, intact, warm Results Laboratory Results: 05/14/20 06:01 05/14/20 06:01 05/14/20 05/14/20 06:01 06:01 WBC 18.5 H RBC 4.14 Hgb 11.5 L Hct 36.3 MCV 88 MCH 27.9 MCHC 31.8 L RDW 18.3 H Plt Count 297 Seg Neutrophils % 86.2 H Sodium 134.6 L Potassium 4.2 Chloride 104 Carbon Dioxide 25 Anion Gap 6 BUN 9 Creatinine 0.41 L Est GFR ( Amer) > 60 Glucose 89 Calcium 8.2 L Phosphorus 3.1 Magnesium 1.5 L 05/13/20 02:15 Troponin I < 0.012 Impressions: Chest X-Ray 05/13/20 03:03 IMPRESSION: Small right effusion with minimal adjacent airspace opacity copyright 2011 [employer]- All Rights Reserved Assessment and Plan - Diagnosis (1) Suspected severe acute respiratory syndrome coronavirus 2 (SARS-CoV-2) infection Is this a current diagnosis for this admission?: Yes Plan: No known contacts with coronavirus at home, no family members have been tested besides her here Started coronavirus supplements/vitamins Remdesivir ordered but pending and pharmacy COVID testing pending Consider convalescent plasma though data is mixed on this treatment Cautious use of IV fluids in the setting of Stewart cervantes with RVR and history of diastolic CHF Continue ceftriaxone/azithromycin for possible right-sided bacterial pneumonia given the atypical nature of chest x-ray Dexamethasone Fully anticoagulated with home Xarelto continued Coronavirus test still pending, should get results tomorrow (2) Permanent atrial fibrillation Is this a current diagnosis for this admission?: Yes Plan: Admission previously for Stewart cervantes with RVR Heart rate in the 140s to 150s at times on admission, improved after adding digoxin Restart home medications Restart home Xarelto Consulted cardiology and discussed the case with them in detail, added digoxin with notable improvement (3) Sepsis Qualifiers: Sepsis type: sepsis due to unspecified organism Sepsis acute organ dy sfunction status: with acute organ dysfunction Severe sepsis acute organ dysfunction type: acute respiratory failure Acute respiratory failure type: with hypoxia Severe sepsis shock status: without septic shock Qualified Code(s): A41.9 - Sepsis, unspecified organism; R65.20 - Severe sepsis without septic shock; J96.01 - Acute respiratory failure with hypoxia Is this a current diagnosis for this admission?: Yes (4) Morbid obesity with BMI of 40.0-44.9, adult Is this a current diagnosis for this admission?: Yes (5) Atrial fibrillation with rapid ventricular response Is this a current diagnosis for this admission?: Yes Plan: Rate control medications Anticoagulation with Xarelto continued Cardiology consulted and on digoxin (6) Obstructive sleep apnea Is this a current diagnosis for this admission?: Yes (7) Suspected COVID-19 virus infection Is this a current diagnosis for this admission?: Yes (8) Chronic low back pain Is this a current diagnosis for this admission?: Yes - Time Time Spent with patient: 35 or more minutes Medications reviewed and adjusted accordingly: Yes Anticipated Discharge Disposition: [facility] Facility Anticipated Discharge Timeframe: within 72 hours - Inpatient Certification Based on my medical assessment, after consideration of the patient's comorbidities, presenting symptoms, or acuity I expect that the services needed warrant INPATIENT care.: Yes I certify that my determination is in accordance with my understanding of Medicare's requirements for reasonable and necessary INPATIENT services [42 CFR 412.3e].: Yes Medical Necessity: Significant Comorbidiites Make Outpatient Treatment Too Risky, Need Close Monitoring Due to Risk of Patient Decompensation, Need for IV Antibiotics, Risk of Complication if Not Cared For in Hospital, Risk of Diagnosis Which Will Require Inpatient Eval/Care/Monitoring
[2020-05-14] MEDS: RIVAROXABAN 10 MG TABLET PO SCH (17:43)
[2020-05-14] MEDS: DEXAMETHASONE SOD PHOS INJ 10 MG/1 ML VIAL IV SCH (17:47)
--- NOTE | 2020-05-14 20:20 | Progress Note ---
Provider Note Provider Note: Cardiology PROGRESS NOTE by Dr. Rosendo Ferreira on 05/14/2020. SUBJECTIVE: The patient still is on BiPAP. She states she is feeling better. Her heart rate is still flat fast but much better. She denies any chest pain discomfort. There is no PND or anginal symptoms. She has orthopnea. There is no leg edema. There is no proarrhythmia on sotalol. The patient's QTC is acceptable. The patient's COVID19 test came back negative. Hence the patient does not have COVID related pneumonia and she just has community-acquired pneumonia. There is no bleeding on Xarelto. There is no TIA CVA symptoms. PHYSICAL EXAMINATION: The patient is moderately obese.. She is wearing the BiPAP. Selected Entries 05/14/20 05/14/20 05/14/20 14:43 15:00 15:47 Temperature 100.8 F H 100.8 F H Heart Rate ( 112 116 Monitors) Respiratory 29 H Rate Blood Pressure 107/54 L O2 Sat by Pulse 99 98 Oximetry Oxygen Delivery Bi-pap Method ( includes room air) Fraction of 35 Inspired Oxygen (FIO2) HEAD: Is atraumatic normocephalic. PUPILS are equal round regular reactive to light accommodation extraocular movements are normal. There is no conjunctival pallor. There is no scleral icterus. ENT is negative note patient is on BiPAP. NECK: Supple. There is no JVD. Carotids are equal there is no bruits. There is no lymphadenopathy. There is no goiter. There is no accessory muscle respiration use. Trachea central. LUNGS: Shows a few scattered rhonchi. There is dry crackles in the right base. There is no rales of CHF. HEART: S1-S2 is heard. S1 is of variable intensity. The patient is tachycardic. There is systolic murmur left sternal border and the apex there is no rub. ABDOMEN: Is obese. Nontender there is no hepatosplenomegaly. Bowel sounds are well heard. There is no tender areas masses. EXTREMITIES: Femorals are deep. There is no femoral bruits. Leg pulses are well felt. There is no pedal edema. There is no DVT or cellulitis. There is no cyanosis or clubbing. 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 PSYCHIATRIC: In spite of her drowsiness the patient judgment insight are intact and affect is normal.: . EKG done late last night:Atrial fibrillation with fast ventricular response. Diffuse nonspecific ST-T changes. QTc is 416. Labs- All tests 24 hr 05/13/20 05/14/20 05/14/20 06:30 06:01 06:01 WBC 18.5 H RBC 4.14 Hgb 11.5 L Hct 36.3 MCV 88 MCH 27.9 MCHC 31.8 L RDW 18.3 H Plt Count 297 Lymph % (Auto) 5.5 L [place] % (Auto) 8.1 Eos % (Auto) 0.0 Baso % (Auto) 0.2 Absolute Neuts (auto) 16.0 H Absolute Lymphs (auto) 1.0 Absolute Monos (auto) 1.5 H Absolute Eos (auto) 0.0 Absolute Basos (auto) 0.0 Seg Neutrophils % 86.2 H Sodium 134.6 L Potassium 4.2 Chloride 104 Carbon Dioxide 25 Anion Gap 6 BUN 9 Creatinine 0.41 L Est GFR ( Amer) > 60 Est GFR (MDRD) Non-Af > 60 Glucose 89 Calcium 8.2 L Phosphorus 3.1 Magnesium 1.5 L COVID-19 (NAN) Not Detected Chest X-Ray 05/13/20 03:03 IMPRESSION: Small right effusion with minimal adjacent airspace opacity copyright 2011 [employer]- All Rights Reserved IMPRESSION/RECOMMENDATION: 1. Atrial fibrillation / Flutter with rapid ventricular response. This is recurrence of atrial fibrillation due to her current lung condition. Patient has a history of proximal atrial fibrillation maintaining sinus rhythm on sotalol. Patient also has been is on chronic anticoagulation with Xarelto. Continue sotalol and Xarelto. We will give 1 more dose of digoxin, Will increase Sotalol to 160 mg po BID. 2. Pneumonia: Continue antibiotics continue BiPAP and oxygen supplementation. 3. History of hypertension: At present blood pressure on the lower side. 4. History of hemochromatosis: At present does not seem to be any acute problems from this. 5. History of sleep apnea: Present patient continues to be on BiPAP. 6. COVID test code19 test came back negative 7. Obesity. Medications reviewed. Medical regimen and management plan discussed with attending provider on the case. Medical decision making is of high complexity. 40-minute spent as patient more than 50% of time spent in direct patient care. Will follow
--- NOTE | 2020-05-14 20:23 | EKG REPORT ---
SEVERITY:- ABNORMAL ECG - ATRIAL FIBRILLATION, V-RATE 80-152 PROBABLE INFERIOR INFARCT, AGE INDETERMINATE NONSPECIFIC T ABNORMALITIES, ANT-LAT LEADS : Confirmed by: Holly Crane 14-May-2020 20:22:35
[2020-05-14] MEDS: IPRATROPIUM/ALBUTEROL 0.5-2.5 MG/3 ML AMPUL NEB PRN (21:18)
[2020-05-14] MEDS: MELATONIN 5 MG TABLET PO SCH (21:47)
[2020-05-14] MEDS ORDERED: KETOROLAC TROMETHAMINE INJ/PF 30 MG/1 ML SDV ONE (22:33)
--- NOTE | 2020-05-15 00:24 | EKG REPORT ---
SEVERITY:- ABNORMAL ECG - ATRIAL FIBRILLATION, V-RATE 88-140 BORDERLINE LEFT AXIS DEVIATION LOW VOLTAGE IN FRONTAL LEADS CONSIDER INFERIOR INFARCT : Confirmed by: Holly Crane 15-May-2020 00:23:44
[2020-05-15] MEDS ORDERED: MORPHINE SULFATE 10 MG/ML INJ ONE (05:25)
[2020-05-15] MEDS: PANTOPRAZOLE SODIUM 20 MG TABLET.DR PO SCH (05:33)
[2020-05-15] MEDS: MORPHINE SULFATE 10 MG/ML INJ IV PRN ×3 (05:34→20:26)
[2020-05-15] MEDS: CEFTRIAXONE 2 GM/D5W RTU 2 GM/50 ML RTUPB IV SCH (05:35)
[2020-05-15] MEDS: AZITHROMYCIN 500 MG in DEXTROSE 5%-WATER 250 ML IV SCH (05:36)
[2020-05-15] MEDS: RINGERS SOLUTION,LACTATED 1,000 ML IV PRN (05:36)
[2020-05-15 08:23] LABS: ABSOLUTE LYMPHOCYTES (AUTO) 0.9 10^3/uL (0.5-4.7); ABSOLUTE MONOCYTES (AUTO) 1.2 10^3/uL (0.1-1.4); BASOPHILS % (AUTO) 0.1 % (0-2); HEMATOCRIT 35.7 % (36.0-47.0); HEMOGLOBIN 11.3 g/dL (12.0-15.5); LYMPHOCYTES % (AUTO) 5.1 % (13-45); MEAN CORPUSCULAR HGB CONC 31.8 g/dL (32.0-36.0); MEAN CORPUSCULAR VOLUME 88 fl (80-97); MONOCYTES % (AUTO) 6.4 % (3-13); PLATELET COUNT 331 10^3/uL (150-450); RED BLOOD COUNT 4.06 10^6/uL (3.72-5.28); RED CELL DISTRIBUTION WIDTH 18.1 % (11.5-14.0); SEGMENTED NEUTROPHILS % (AUTO) 88.4 % (42-78); TOTAL CELLS COUNTED % (AUTO) 100 %; WHITE BLOOD COUNT 18.1 10^3/uL (4.0-10.5)
[2020-05-15 08:46] LABS: ANION GAP 7 (5-19); BLOOD UREA NITROGEN 8 mg/dL (7-20); CALCIUM 8.3 mg/dL (8.4-10.2); CARBON DIOXIDE 26 mmol/L (22-30); CHLORIDE 100 mmol/L (98-107); GLUCOSE 88 mg/dL (75-110); POTASSIUM 4.6 mmol/L (3.6-5.0)
[2020-05-15] MEDS: BRIMONIDINE TARTRATE 0.2% OPH SOLN 5 ML OU SCH ×2 (09:31→17:47)
[2020-05-15] MEDS: SOTALOL HCL 80 MG TABLET PO SCH ×2 (09:32→22:16)
[2020-05-15] MEDS: DEXAMETHASONE SOD PHOS INJ 10 MG/1 ML VIAL IV SCH (09:33)
[2020-05-15] MEDS: FLUTICASONE/VILANTEROL 100-25 MCG/DOSE IH SCH (09:33)
[2020-05-15] MEDS: DOCUSATE SODIUM 100 MG/10 ML UDC PO SCH (09:34)
[2020-05-15] MEDS: NYSTATIN TOPICAL POWDER 15 GM TP SCH ×2 (09:34→17:46)
[2020-05-15] MEDS: ASCORBIC ACID 500 MG TABLET PO SCH ×2 (09:35→17:39)
[2020-05-15] MEDS: CHOLECALCIFEROL (D3) 1,000 UNIT (25 MCG) TABLET PO SCH (09:35)
[2020-05-15] MEDS: ZINC SULFATE 220 MG CAPSULE PO SCH (09:35)
[2020-05-15] MEDS: TIMOLOL MALEATE 0.5% OPH SOLN 5 ML OU SCH ×2 (09:35→17:45)
[2020-05-15] MEDS: ONDANSETRON HCL INJ/PF 4 MG/2 ML SDV IV PRN (09:36)
--- NOTE | 2020-05-15 13:54 | PDOC PROGRESS REPORT ---
Subjective Subjective:: KAMINI FERNANDEZ is a 70 year old female with past medical history significant for permanent A. fib, morbid obesity, COPD, LAKSHMI, choledocholithiasis who presents with a four-day history of progressive nausea/vomiting/shortness of breath/cough/ECHOLS/fevers which came on abruptly at patient's home. Most of the information for this history was obtained from the patient's son who lives with her as the patient is unable to speak clearly and effectively on the BiPAP currently. Patient and family deny any contacts with people under investigation or confirmed positive for COVID. Patient son states that he is out and about around town regularly but typically wears a mask. He does state patient also has a history of hemochromatosis but he does not know what she does to treat this. On admission, patient notable for elevated WBC, lymphopenia, sepsis, negative troponin, normal lipase, normal lactic acid. Chest x-ray showed right small pleural effusion with adjacent airspace opacity. Patient started on appropriate supplements for COVID-19 as well as Remdesivir. Patient requiring BiPAP on 30% oxygen on admission. Tachycardic in A. fib with RVR. Home medications including Xarelto restarted. Patient admitted to [facility] COVID unit. 05/14/2020 Patient heart rate significantly improved after starting on digoxin and the patient has been seen by Dr. Ferreira and I discussed the case with them in detail today. Likely patient's A. fib with RVR as result of her coronavirus pneumonia and respiratory failure. I discussed the case with nursing as well and stated the patient is being maintained at 35% FiO2 currently. I have ordered Remdesivir but this order is still pending in the pharmacy. Patient is still febrile at 100.9, tachycardic, tachypneic, still requiring BiPAP frequently for respiratory support. WBC is higher at 18.5 and hemoglobin is lower, magnesium low and this is being repleted. Patient is minimally conversant but does not voice any complaints today. 05/15/2020 Coronavirus test came back negative today and we have stopped the empiric Remdesivir. Antibiotics continued for what is likely a community-acquired pneumonia with severe respiratory failure. Patient's breathing is gradually improving and she has been trialed on nasal cannula today rather than the BiPAP she has been very reliant on since admission. Her magnesium is low and we are repleting this. She has no new complaints today. Will need physical therapy to see her as she may be weak enough to necessitate SNF or at the very least home health PT. Reason For Visit: COVID 19,PNEUMONIA Physical Exam Vital Signs: Temp Pulse Resp BP Pulse Ox 97.4 F 108 H 22 H 128/67 H 99 05/15/20 10:00 05/15/20 08:41 05/15/20 08:41 05/15/20 08:41 05/15/20 08:41 Intake & Output 05/14/20 05/15/20 05/16/20 06:59 06:59 06:59 Intake Total 94 2956 Output Total 120 945 -2010 Weight 108.7 kg 110.3 kg Exam: General appearance: PRESENT: cooperative, mild distress, morbidly obese, well- developed, well-nourished, looks a bit better today but also exhausted Head exam: PRESENT: atraumatic, normocephalic Eye exam: PRESENT: conjunctiva pink. ABSENT: scleral icterus Mouth exam: PRESENT: moist Respiratory exam: PRESENT: decreased breath sounds, rales - Mild bilateral. ABSENT: rhonchi, wheezes Cardiovascular exam: PRESENT: irregular rhythm, tachycardia. ABSENT: diastolic murmur, rubs, systolic murmur GI/Abdominal exam: PRESENT: normal bowel sounds, soft. ABSENT: distended, guarding, mass, organolmegaly, rebound, tenderness Rectal exam: PRESENT: deferred Extremities exam: ABSENT: pedal edema Neurological exam: PRESENT: alert, awake, oriented to person, oriented to place, oriented to time, oriented to situation Psychiatric exam: PRESENT: appropriate affect, normal mood Skin exam: PRESENT: dry, intact, warm Results Laboratory Results: 05/15/20 07:25 05/15/20 07:25 05/15/20 05/15/20 07:25 07:25 WBC 18.1 H RBC 4.06 Hgb 11.3 L Hct 35.7 L MCV 88 MCH 28.0 MCHC 31.8 L RDW 18.1 H Plt Count 331 Seg Neutrophils % 88.4 H Sodium 133.4 L Potassium 4.6 Chloride 100 Carbon Dioxide 26 Anion Gap 7 BUN 8 Creatinine 0.34 L Est GFR ( Amer) > 60 Glucose 88 Calcium 8.3 L Ferritin 55.80 05/13/20 02:15 Troponin I < 0.012 Impressions: Chest X-Ray 05/13/20 03:03 IMPRESSION: Small right effusion with minimal adjacent airspace opacity copyright 2010 [employer]- All Rights Reserved Assessment and Plan - Diagnosis (1) Suspected severe acute respiratory syndrome coronavirus 2 (SARS-CoV-2) infection Is this a current diagnosis for this admission?: Yes Plan: No known contacts with coronavirus at home, no family members have been tested besides her here Started coronavirus supplements/vitamins Remdesivir ordered but pending and pharmacy COVID testing pending Consider convalescent plasma though data is mixed on this treatment Cautious use of IV fluids in the setting of A. fib with RVR and history of diastolic CHF Continue ceftriaxone/azithromycin for possible right-sided bacterial pneumonia given the atypical nature of chest x-ray Dexamethasone Fully anticoagulated with home Xarelto continued Coronavirus test is negative and we have stopped Remdesivir as well as coronavirus specific supplements and steroids (2) Permanent atrial fibrillation Is this a current diagnosis for this admission?: Yes Plan: Admission previously for A. fib with RVR Heart rate in the 140s to 150s at times on admission, improved after adding digoxin Restart home medications Restart home Xarelto Consulted cardiology and discussed the case with them in detail, added digoxin with notable improvement Rate controlled (3) Sepsis Qualifiers: Sepsis type: sepsis due to unspecified organism Sepsis acute organ dysfunction status: with acute organ dysfunction Severe sepsis acute organ dysfunction type: acute respiratory failure Acute respiratory failure type: with hypoxia Severe sepsis shock status: without septic shock Qualified Code(s): A41.9 - Sepsis, unspecified organism; R65.20 - Severe sepsis without septic shock; J96.01 - Acute respiratory failure with hypoxia Is this a current diagnosis for this admission?: Yes Plan: Due to bacterial pneumonia, coronavirus test negative Cautious use of IV fluids in the setting of chronic diastolic CHF Antibiotics continued Close hemodynamic monitoring (4) Morbid obesity with BMI of 40.0-44.9, adult Is this a current diagnosis for this admission?: Yes (5) Atrial fibrillation with rapid ventricular response Is this a current diagnosis for this admission?: Yes (6) Obstructive sleep apnea Is this a current diagnosis for this admission?: Yes (7) Chronic low back pain Is this a current diagnosis for this admission?: Yes - Time Time Spent with patient: 35 or more minutes Medications reviewed and adjusted accordingly: Yes Anticipated Discharge Disposition: [facility] Facility Anticipated Discharge Timeframe: within 72 hours - Inpatient Certification Based on my medical assessment, after consideration of the patient's comorbidities, presenting symptoms, or acuity I expect that the services needed warrant INPATIENT care.: Yes I certify that my determination is in accordance with my understanding of Medicare's requirements for reasonable and necessary INPATIENT services [42 CFR 412.3e].: Yes Medical Necessity: Significant Comorbidiites Make Outpatient Treatment Too Risky, Need Close Monitoring Due to Risk of Patient Decompensation, Need for IV Antibiotics, Risk of Complication if Not Cared For in Hospital, Risk of Diagnosis Which Will Require Inpatient Eval/Care/Monitoring
[2020-05-15] MEDS: RIVAROXABAN 10 MG TABLET PO SCH (17:40)
--- NOTE | 2020-05-15 18:21 | Progress Note ---
Provider Note Provider Note: Cardiology progress note by Dr. Elodia Ferreira on 05/15/2020. SUBJECTIVE: The patient is breathing easier she is off the BiPAP and is now on nasal cannula. She says she is coughing up some mucus stuff. Her COVID19 test came back negative. She continues to be in atrial fibrillation ventricular response in the 90s to the 100s. She denies any chest pain discomfort. There is no PND orthopnea or leg edema. There is no ventricle arrhythmia seen on the monitor. There is no proarrhythmia on sotalol. There is no bleeding on Xarelto. There is no TIA CVA symptoms. PHYSICAL EXAMINATION: The patient is moderately obese at present in no acute distress. She is on nasal cannula with oxygen of 4 L/min delivery. Selected Entries 05/15/20 05/15/20 14:00 15:46 Temperature 98.1 F Temperature Oral Source Pulse Rate 96 102 H Respiratory 25 H Rate Blood Pressure 111/55 L Blood Pressure 73 Mean BP Location Left Arm BP Position Supine O2 Sat by Pulse 97 Oximetry Oxygen Flow 4.00 Rate Oxygen Delivery Nasal Cannula Method HEAD: Is atraumatic normocephalic. PUPILS are equal round regular reactive to light accommodation extraocular movements are normal. There is no conjunctival pallor. There is no scleral icterus. ENT is negative note patient is on BiPAP. NECK: Supple. There is no JVD. Carotids are equal there is no bruits. There is no lymphadenopathy. There is no goiter. There is no accessory muscle respiration use. Trachea central. LUNGS: Shows a few scattered rhonchi. There is dry crackles in the right base. There is no rales of CHF. HEART: S1-S2 is heard. S1 is of variable intensity. The patient is tachycardic. There is systolic murmur left sternal border and the apex there is no rub. ABDOMEN: Is obese. Nontender there is no hepatosplenomegaly. Bowel sounds are well heard. There is no tender areas masses. EXTREMITIES: Femorals are deep. There is no femoral bruits. Leg pulses are well felt. There is no pedal edema. There is no DVT or cellulitis. There is no cyanosis or clubbing. MATH PROFESSOR: The patient is drowsy but without any focal deficits. PSYCHIATRIC: In spite of her drowsiness the patient judgment insight are intact and affect is normal.: . The patient is EKG shows HEAD: Is atraumatic normocephalic. EYES: Pupils are equal round regular reactive to light and accommodation. There is no clinical pallor. There is no scleral icterus. External ocular movements are normal. EARS: Tympanic membranes are intact. External auditory canals are clear. NOSE: Nasal mucous membranes are not inflamed. There is no deviated nasal septum. MOUTH: Mucous membranes of mouth are moist. Tongue is moist. There is no ulcers. There is no bleeding from the gums. THROAT: There is no redness of the oropharynx. There is no exudates in the throat. SKIN: There is no petechia or ecchymosis. There is no skin rashes or skin lesions. NECK: Is supple. There is no JVD. Carotids are equal there is no bruits. There is no lymphadenopathy. There is no goiter. There is no accessory muscles of respiration in use. Trachea central. LUNGS: There is diminished air entry and prolonged expiration. On percussion there is hyperresonance. There is scattered rhonchi present. There is no rales or wheezing. There is no chest wall tenderness on palpation. HEART: S1-S2 is heard. S1 is of variable intensity. There is no S3 gallop. There is no S4 gallop. There is systolic murmur left sternal border and the apex, without radiation. There is no murmur of aortic stenosis. Prosthetic aortic valve click heard crisply. There is no aortic regurgitation murmur.. There is no rub. ABDOMEN: Is Nontender. There is no hepatosplenomegaly. Bowel sounds are well heard. EXTREMITIES: Femorals are deep. Femorals are slightly diminished. There is no femoral bruits. There is no pedal edema. T here is no DVT or cellulitis. Leg pulses are diminished. There is no cyanosis or clubbing. Capillary refill is normal. There is no calf tenderness. MATH PROFESSOR: The patient is conscious awake alert oriented x3 with no focal deficits. PSYCHIATRIC: The patient judgment and insight are intact her affect is normal. The patient is EKG shows atrial fibrillation with somewhat fast ventricular rhythm. Borderline left axis deviation. QTC is 388. Labs- All tests 24 hr 05/13/20 05/15/20 05/15/20 06:30 07:25 07:25 WBC 18.1 H RBC 4.06 Hgb 11.3 L Hct 35.7 L MCV 88 MCH 28.0 MCHC 31.8 L RDW 18.1 H Plt Count 331 Lymph % (Auto) 5.1 L [place] % (Auto) 6.4 Eos % (Auto) 0.0 Baso % (Auto) 0.1 Absolute Neuts (auto) 16.0 H Absolute Lymphs (auto) 0.9 Absolute Monos (auto) 1.2 Absolute Eos (auto) 0.0 Absolute Basos (auto) 0.0 Seg Neutrophils % 88.4 H D-Dimer Sodium 133.4 L Potassium 4.6 Chloride 100 Carbon Dioxide 26 Anion Gap 7 BUN 8 Creatinine 0.34 L Est GFR ( Amer) > 60 Est GFR (MDRD) Non-Af > 60 Glucose 88 Calcium 8.3 L Ferritin 55.80 Lactate Dehydrogenase 191 COVID-19 (NAN) Not Detected 05/15/20 07:25 WBC RBC Hgb Hct MCV MCH MCHC RDW Plt Count Lymph % (Auto) [place] % (Auto) Eos % (Auto) Baso % (Auto) Absolute Neuts (auto) Absolute Lymphs (auto) Absolute Monos (auto) Absolute Eos (auto) Absolute Basos (auto) Seg Neutrophils % D-Dimer 0.86 H Sodium Potassium Chloride Carbon Dioxide Anion Gap BUN Creatinine Est GFR ( Amer) Est GFR (MDRD) Non-Af Glucose Calcium Ferritin Lactate Dehydrogenase COVID-19 (NAN) Chest X-Ray 05/13/20 03:03 IMPRESSION: Small right effusion with minimal adjacent airspace opacity copyright 2010 [employer]- All Rights Reserved MPRESSION/RECOMMENDATION: 1. Atrial fibrillation / Flutter with rapid ventricular response. This is recurrence of atrial fibrillation due to her current lung condition. Patient is tolerating a higher dose of sotalol without proarrhythmia. And there is no QTc prolongation. 2. Pneumonia: Continue antibiotics continue BiPAP as needed and oxygen supplementation. 3. History of hypertension: At present blood pressure on the lower side. 4. History of hemochromatosis: At present does not seem to be any acute problems from this. 5. History of sleep apnea: Present patient continues to be on BiPAP. 6. COVID test code19 test came back negative 7. Obesity. Medications reviewed. Medical regimen and management plan discussed with attending provider on the case. Medical decision making is of moderate complexity. 40-minute spent as patient more than 50% of time spent in direct patient care. Will follow
[2020-05-15] MEDS: IPRATROPIUM/ALBUTEROL 0.5-2.5 MG/3 ML AMPUL NEB PRN (20:38)
[2020-05-15] MEDS: MELATONIN 5 MG TABLET PO SCH (22:16)
[2020-05-16] MEDS: MORPHINE SULFATE 10 MG/ML INJ IV PRN (03:37)
[2020-05-16] MEDS: CEFTRIAXONE 2 GM/D5W RTU 2 GM/50 ML RTUPB IV SCH (05:37)
[2020-05-16] MEDS: PANTOPRAZOLE SODIUM 20 MG TABLET.DR PO SCH (05:37)
[2020-05-16] MEDS: AZITHROMYCIN 500 MG in DEXTROSE 5%-WATER 250 ML IV SCH (05:37)
[2020-05-16] MEDS: RINGERS SOLUTION,LACTATED 1,000 ML IV PRN (05:38)
[2020-05-16 06:23] LABS: ABSOLUTE LYMPHOCYTES (AUTO) 1.1 10^3/uL (0.5-4.7); ABSOLUTE NEUT (AUTO) 11.4 10^3/uL (1.7-8.2); BASOPHILS % (AUTO) 0.1 % (0-2); HEMATOCRIT 35.1 % (36.0-47.0); HEMOGLOBIN 11.5 g/dL (12.0-15.5); LYMPHOCYTES % (AUTO) 7.9 % (13-45); MEAN CORPUSCULAR HEMOGLOBIN 28.9 pg (27.0-33.4); MEAN CORPUSCULAR HGB CONC 32.8 g/dL (32.0-36.0); MEAN CORPUSCULAR VOLUME 88 fl (80-97); MONOCYTES % (AUTO) 7.2 % (3-13); PLATELET COUNT 378 10^3/uL (150-450); RED BLOOD COUNT 3.99 10^6/uL (3.72-5.28); SEGMENTED NEUTROPHILS % (AUTO) 84.8 % (42-78); TOTAL CELLS COUNTED % (AUTO) 100 %; WHITE BLOOD COUNT 13.5 10^3/uL (4.0-10.5)
[2020-05-16 06:38] LABS: ANION GAP 6 (5-19); BLOOD UREA NITROGEN 8 mg/dL (7-20); CALCIUM 8.7 mg/dL (8.4-10.2); CARBON DIOXIDE 29 mmol/L (22-30); CHLORIDE 102 mmol/L (98-107); GLUCOSE 100 mg/dL (75-110); POTASSIUM 4.5 mmol/L (3.6-5.0)
--- NOTE | 2020-05-16 08:28 | EKG REPORT ---
SEVERITY:- ABNORMAL ECG - SINUS RHYTHM MULTIPLE ATRIAL PREMATURE COMPLEXES SINUS PAUSE/ARREST WITH ATRIAL ESCAPE LOW VOLTAGE IN FRONTAL LEADS BORDERLINE T ABNORMALITIES, ANT-LAT LEADS : Confirmed by: Elodia Ferreira MD 16-May-2020 08:28:10
[2020-05-16] MEDS: ONDANSETRON HCL INJ/PF 4 MG/2 ML SDV IV PRN (09:33)
[2020-05-16] MEDS ORDERED: IPRATROPIUM/ALBUTEROL 0.5-2.5 MG/3 ML AMPUL NEB ONE (10:30)
[2020-05-16] MEDS: CHOLECALCIFEROL (D3) 1,000 UNIT (25 MCG) TABLET PO SCH (11:41)
[2020-05-16] MEDS: ZINC SULFATE 220 MG CAPSULE PO SCH (11:42)
[2020-05-16] MEDS: SOTALOL HCL 80 MG TABLET PO SCH ×2 (11:43→21:21)
[2020-05-16] MEDS: NYSTATIN TOPICAL POWDER 15 GM TP SCH ×2 (11:44→21:31)
[2020-05-16] MEDS: ASCORBIC ACID 500 MG TABLET PO SCH ×2 (11:44→17:27)
[2020-05-16] MEDS: DOCUSATE SODIUM 100 MG/10 ML UDC PO SCH (11:53)
[2020-05-16] MEDS: FLUTICASONE/VILANTEROL 100-25 MCG/DOSE IH SCH (12:18)
[2020-05-16] MEDS: BRIMONIDINE TARTRATE 0.2% OPH SOLN 5 ML OU SCH ×2 (12:20→21:37)
[2020-05-16] MEDS: TIMOLOL MALEATE 0.5% OPH SOLN 5 ML OU SCH ×2 (12:20→21:22)
--- NOTE | 2020-05-16 13:21 | PDOC PROGRESS REPORT ---
Subjective Progress Note for:: 05/16/20 Subjective:: Discussed with patient. She states that she does not use oxygen at home. She also states that she has had a sleep study a long time ago but never diagnosed with sleep apnea. She does not use any BiPAP/CPAP machines at home. Currently she feels well in terms of her breathing. She did however have an episode earlier today according to the nurse where she went into respiratory distress briefly while on nasal cannula and had to be put back on the BiPAP prior to encounter. Reason For Visit: COVID 19,PNEUMONIA Physical Exam Vital Signs: Temp Pulse Resp BP Pulse Ox 97.5 F 103 H 18 110/60 98 05/16/20 12:00 05/16/20 10:17 05/16/20 12:00 05/16/20 12:00 05/16/20 12:00 Intake & Output 05/15/20 05/16/20 05/17/20 06:59 06:59 06:59 Intake Total 2956 1320 Output Total 945 1625 Balance 2010 Weight 110.3 kg 110.3 kg General appearance: PRESENT: no acute distress, cooperative Neck exam: ABSENT: JVD Respiratory exam: PRESENT: symmetrical, unlabored. ABSENT: accessory muscle use, crackles, tachypnea, wheezes Cardiovascular exam: PRESENT: RRR, +S1. ABSENT: tachycardia GI/Abdominal exam: PRESENT: soft. ABSENT: rebound, rigid, tenderness Neurological exam: PRESENT: alert, awake, oriented to person, oriented to place, oriented to time Psychiatric exam: ABSENT: agitated, anxious Results Laboratory Results: 05/16/20 06:06 05/16/20 06:06 05/16/20 05/16/20 06:06 06:06 WBC 13.5 H RBC 3.99 Hgb 11.5 L Hct 35.1 L MCV 88 MCH 28.9 MCHC 32.8 RDW 18.0 H Plt Count 378 Seg Neutrophils % 84.8 H Sodium 136.6 L Potassium 4.5 Chloride 102 Carbon Dioxide 29 Anion Gap 6 BUN 8 Creatinine 0.39 L Est GFR ( Amer) > 60 Glucose 100 Calcium 8.7 05/13/20 02:15 Troponin I < 0.012 Impressions: Chest X-Ray 05/13/20 03:03 IMPRESSION: Small right effusion with minimal adjacent airspace opacity copyright 2011 [employer]- All Rights Reserved Assessment and Plan - Diagnosis (1) Acute respiratory failure with hypoxia Is this a current diagnosis for this admission?: Yes Plan: Patient currently on BiPAP for work of breathing. We will try to take patient off the BiPAP this afternoon put patient on nasal cannula. If not tolerated, will get a blood gas. COVID-19 test negative Check two-view chest x-ray today. (2) Community acquired pneumonia Qualifiers: Laterality: right Lung location: lower lobe of lung Qualified Code(s): J18.9 - Pneumonia, unspecified organism Is this a current diagnosis for this admission?: Yes Plan: Continue ceftriaxone and azithromycin. Blood cultures were negative. Sputum culture not obtained. Leukocytosis is improving. Dexamethasone discontinued yesterday. (3) Permanent atrial fibrillation Is this a current diagnosis for this admission?: Yes Plan: Likely being triggered by patient's recent infection with hypoxia and fevers. Currently on Xarelto. Continues sotalol which is up to 160 mg every 12 hours currently. QTC is normal today. (4) Sepsis Qualifiers: Sepsis type: sepsis due to unspecified organism Sepsis acute organ dysfunction status: with acute organ dysfunction Severe sepsis acute organ dysfunction type: acute respiratory failure Acute respiratory failure type: with hypoxia Severe sepsis shock status: without septic shock Qualified Code(s): A41.9 - Sepsis, unspecified organism; R65.20 - Severe sepsis without septic shock; J96.01 - Acute respiratory failure with hypoxia Is this a current diagnosis for this admission?: Yes Plan: Sepsis has resolved. Her fevers have also broken as well since 05/14/2020. (5) Obesity (BMI 30-39.9) Is this a current diagnosis for this admission?: Yes Plan: She states she has done sleep study in the past but was never diagnosed with sleep apnea. Does not use any NIPPV at home. She was certainly benefit from outpatient sleep study upon discharge. - Time Time Spent with patient: 15-24 minutes Anticipated Discharge Disposition: Home, Self Care Anticipated Discharge Timeframe: within 48 hours
[2020-05-16] MEDS: TRAMADOL HCL 50 MG TABLET PO PRN (13:57)
[2020-05-16 14:37] LABS: VENOUS BLOOD BASE EXCESS 3.8 mmol/L; VENOUS BLOOD HCO3 29.2 mmol/L (20-32); VENOUS BLOOD PCO2 47.2 mmHg (35-63); VENOUS BLOOD PH 7.41 (7.30-7.42)
--- NOTE | 2020-05-16 15:13 | RADIOLOGY REPORT (SQ) ---
EXAM DESCRIPTION: CHEST 2 VIEWS IMAGES COMPLETED DATE/TIME: 05/16/2020 3:00 pm REASON FOR STUDY: respiratory distress COMPARISON: 05/13/2020 EXAM PARAMETERS: NUMBER OF VIEWS: two views TECHNIQUE: Digital Frontal and Lateral radiographic views of the chest acquired. RADIATION DOSE: NA LIMITATIONS: Patient rotation on the frontal radiograph FINDINGS: LUNGS AND PLEURA: Today's examination demonstrates increasing layering pleural effusion on the right. The left hemithorax remains clear. No pneumothorax. MEDIASTINUM AND HILAR STRUCTURES: No masses or contour abnormalities. HEART AND VASCULAR STRUCTURES: Heart normal size. No evidence for failure. BONES: No acute findings. HARDWARE: None in the chest. OTHER: No other significant finding. IMPRESSION: Right-sided pleural effusion demonstrates increased volume on today's examination. Othe rwise stable radiographic appearance of the chest. TECHNICAL DOCUMENTATION: JOB ID: [id number] 2010 [employer]- All Rights Reserved Reading location - IP/workstation name: [email or web address]
[2020-05-16] MEDS: RIVAROXABAN 10 MG TABLET PO SCH (17:27)
[2020-05-16] MEDS: MELATONIN 5 MG TABLET PO SCH (21:20)
[2020-05-16] MEDS: PHENAZOPYRIDINE HCL 200 MG TABLET PO PRN (21:30)
--- NOTE | 2020-05-16 22:33 | Progress Note ---
Provider Note Provider Note: CARDIOLOGY PROGRESS NOTE by Dr. Elodia Ferreira on 05/16/2020. SUBJECTIVE: The patient converted to sinus rhythm. Her cough is much improved. She is now off the BiPAP and uses nasal cannula. She uses BiPAP on a as needed basis. There is no TIA CVA symptoms. There is no bleeding on Xarelto. PHYSICAL EXAMINATION: The patient is morbidly obese. In no acute distress. Selected Entries 05/16/20 05/16/20 12:00 19:51 Temperature 97.5 F Temperature Axillary Source Heart Rate ( 97 Monitors) Respiratory 18 18 Rate Blood Pressure 110/60 [Upper Arm] Blood Pressure 76 Mean [Upper Arm ] Blood Pressure Supine Position [Upper Arm] O2 Sat by Pulse 98 99 Oximetry Oxygen Delivery Nasal Cannula Method ( includes room air) Oxygen Flow 2.00 Rate Oxygen Delivery Nasal Cannula Method HEAD: Is atraumatic normocephalic. PUPILS are equal round regular reactive to light accommodation extraocular movements are normal. There is no conjunctival pallor. There is no scleral icterus. ENT is negative note patient is on BiPAP. NECK: Supple. There is no JVD. Carotids are equal there is no bruits. There is no lymphadenopathy. There is no goiter. There is no accessory muscle respiration use. Trachea central. LUNGS: Shows a few scattered rhonchi. There is dry crackles in the right base. There is no rales of CHF. HEART: S1-S2 is heard. S1 is of variable intensity. The patient is tachycardic. There is systolic murmur left sternal border and the apex there is no rub. ABDOMEN: Is obese. Nontender there is no hepatosplenomegaly. Bowel sounds are well heard. There is no tender areas masses. EXTREMITIES: Femorals are deep. There is no femoral bruits. Leg pulses are well felt. There is no pedal edema. There is no DVT or cellulitis. There is no cyanosis or clubbing. DIRECTOR HOME HEALTH: The patient is drowsy but without any focal deficits. PSYCHIATRIC: In spite of her drowsiness the patient judgment insight are intact and affect is normal.: . SINUS RHYTHM [MAPC] . MULTIPLE ATRIAL PREMATURE COMPLEXES [JAMES] . SINUS PAUSE/ARREST WITH ATRIAL ESCAPE [LVOLF] . LOW VOLTAGE IN FRONTAL LEADS [T0AL] . BORDERLINE T ABNORMALITIES, ANT-LAT LEADS QTC is 468 Labs- All tests 24 hr 05/16/20 05/16/20 05/16/20 06:06 06:06 14:26 WBC 13.5 H RBC 3.99 Hgb 11.5 L Hct 35.1 L MCV 88 MCH 28.9 MCHC 32.8 RDW 18.0 H Plt Count 378 Lymph % (Auto) 7.9 L Love % (Auto) 7.2 Eos % (Auto) 0.0 Baso % (Auto) 0.1 Absolute Neuts (auto) 11.4 H Absolute Lymphs (auto) 1.1 Absolute Monos (auto) 1.0 Absolute Eos (auto) 0.0 Absolute Basos (auto) 0.0 Seg Neutrophils % 84.8 H VBG pH 7.41 VBG pCO2 47.2 VBG HCO3 29.2 VBG Base Excess 3.8 Sodium 136.6 L Potassium 4.5 Chloride 102 Carbon Dioxide 29 Anion Gap 6 BUN 8 Creatinine 0.39 L Est GFR ( Amer) > 60 Est GFR (MDRD) Non-Af > 60 Glucose 100 Calcium 8.7 Chest X-Ray 05/13/20 03:03 IMPRESSION: Small right effusion with minimal adjacent airspace opacity copyright 2011 [employer]- All Rights Reserved Chest X-Ray 05/16/20 00:00 IMPRESSION: Right-sided pleural effusion demonstrates increased volume on today's examination. Otherwise stable radiographic appearance of the chest. MPRESSION/RECOMMENDATION: 1. Paroxysmal atrial fibrillation. Patient now in sinus rhythm. There is no TIA CVA symptoms. Patient is tolerating a higher dose of sotalol without proarrhythmia. And there is no QTc prolongation. 2. Pneumonia: Continue antibiotics continue BiPAP as needed and oxygen supplementation. 3. History of hypertension: At present blood pressure on the lower side. 4. History of hemochromatosis: At present does not seem to be any acute problems from this. 5. History of sleep apnea: Present patient continues to be on BiPAP. 6. COVID test code19 test came back negative 7. Obesity. Medications reviewed. Medical regimen and management plan discussed with attending provider on the case. Medical decision making is of moderate complexity. 40-minute spent as patient more than 50% of time spent in direct patient care. Will follow
[2020-05-17] MEDS: IPRATROPIUM/ALBUTEROL 0.5-2.5 MG/3 ML AMPUL NEB PRN ×2 (01:31→06:26)
[2020-05-17] MEDS: CEFTRIAXONE 2 GM/D5W RTU 2 GM/50 ML RTUPB IV SCH (05:05)
[2020-05-17] MEDS: PANTOPRAZOLE SODIUM 20 MG TABLET.DR PO SCH (05:11)
[2020-05-17] MEDS: AZITHROMYCIN 500 MG in DEXTROSE 5%-WATER 250 ML IV SCH (05:45)
[2020-05-17 06:38] LABS: HEMATOCRIT 36.4 % (36.0-47.0); MEAN CORPUSCULAR HEMOGLOBIN 28.6 pg (27.0-33.4); MEAN CORPUSCULAR HGB CONC 33.1 g/dL (32.0-36.0); MEAN CORPUSCULAR VOLUME 87 fl (80-97); PLATELET COUNT 386 10^3/uL (150-450); RED BLOOD COUNT 4.21 10^6/uL (3.72-5.28); WHITE BLOOD COUNT 10.7 10^3/uL (4.0-10.5)
[2020-05-17 07:02] LABS: ANION GAP 9 (5-19); BLOOD UREA NITROGEN 5 mg/dL (7-20); CALCIUM 8.8 mg/dL (8.4-10.2); CARBON DIOXIDE 28 mmol/L (22-30); CHLORIDE 100 mmol/L (98-107); GLUCOSE 98 mg/dL (75-110); POTASSIUM 4.1 mmol/L (3.6-5.0)
[2020-05-17] MEDS: TRAMADOL HCL 50 MG TABLET PO PRN ×3 (08:34→21:33)
[2020-05-17] MEDS: DOCUSATE SODIUM 100 MG/10 ML UDC PO SCH (09:55)
[2020-05-17] MEDS: NYSTATIN TOPICAL POWDER 15 GM TP SCH ×2 (09:55→17:59)
[2020-05-17] MEDS: CHOLECALCIFEROL (D3) 1,000 UNIT (25 MCG) TABLET PO SCH (09:56)
[2020-05-17] MEDS: ZINC SULFATE 220 MG CAPSULE PO SCH (09:56)
[2020-05-17] MEDS: SOTALOL HCL 80 MG TABLET PO SCH ×2 (09:56→21:27)
[2020-05-17] MEDS: ASCORBIC ACID 500 MG TABLET PO SCH ×2 (09:56→17:58)
[2020-05-17] MEDS: FLUTICASONE/VILANTEROL 100-25 MCG/DOSE IH SCH (10:00)
[2020-05-17] MEDS: TIMOLOL MALEATE 0.5% OPH SOLN 5 ML OU SCH ×2 (10:01→21:28)
[2020-05-17] MEDS: BRIMONIDINE TARTRATE 0.2% OPH SOLN 5 ML OU SCH ×2 (10:03→21:28)
[2020-05-17] MEDS: LEVALBUTEROL HCL NEB 1.25 MG/3 ML AMPUL NEB PRN (10:13)
--- NOTE | 2020-05-17 14:43 | EKG REPORT ---
SEVERITY:- ABNORMAL ECG - SINUS RHYTHM BORDERLINE LEFT AXIS DEVIATION LOW VOLTAGE IN FRONTAL LEADS BORDERLINE T ABNORMALITIES, DIFFUSE LEADS : Confirmed by: Elodia Ferreira MD 17-May-2020 14:42:37
--- NOTE | 2020-05-17 15:11 | Progress Note ---
Provider Note Provider Note: CARDIOLOGY PROGRESS NOTE by Dr. Elodia Ferreira on 05/17/2020 SUBJECTIVE: The patient denies in chest pain or discomfort. She remains in sinus rhythm. She states her cough is improved and at present the cough is nonproductive. In spite of her being on oxygen her his breathing seems to be less labored. She states she has had a history of sleep study in the past which was negative for sleep apnea. There is no proarrhythmia on sotalol. PHYSICAL EXAMINATION: The patient is morbidly obese. Selected Entries 05/17/20 05/17/20 09:37 10:00 Temperature 98.2 F Temperature Axillary Source Pulse Rate 113 H Respiratory 17 Rate Blood Pressure 102/63 [Upper Arm] Blood Pressure 76 Mean [Upper Arm ] Blood Pressure Supine Position [Upper Arm] O2 Sat by Pulse 99 Oximetry Oxygen Delivery Nasal Cannula Method ( includes room air) Oxygen Flow 2 Rate HEAD: Is atraumatic normocephalic. PUPILS are equal round regular reactive to light accommodation extraocular movements are normal. There is no conjunctival pallor. There is no scleral icterus. ENT is negative note patient is on BiPAP. NECK: Supple. There is no JVD. Carotids are equal there is no bruits. There is no lymphadenopathy. There is no goiter. There is no accessory muscle respiration use. Trachea central. LUNGS: Shows a few scattered rhonchi. There is dry crackles in the right base. There is no rales of CHF. HEART: S1-S2 is heard. S1 is of variable intensity. The patient is tachycardic. There is systolic murmur left sternal border and the apex there is no rub. ABDOMEN: Is obese. Nontender there is no hepatosplenomegaly. Bowel sounds are well heard. There is no tender areas masses. EXTREMITIES: Femorals are deep. There is no femoral bruits. Leg pulses are well felt. There is no pedal edema. There is no DVT or cellulitis. There is no cyanosis or clubbing. BANK REPRESENTATIVE: The patient is drowsy but without any focal deficits. PSYCHIATRIC: In spite of her drowsiness the patient judgment insight are intact and affect is normal.: Labs- All tests 24 hr 05/17/20 05/17/20 05/17/20 06:11 06:11 18:13 WBC 10.7 H RBC 4.21 Hgb 12.0 Hct 36.4 MCV 87 MCH 28.6 MCHC 33.1 RDW 18.0 H Plt Count 386 Sodium 137.4 Potassium 4.1 Chloride 100 Carbon Dioxide 28 Anion Gap 9 BUN 5 L Creatinine 0.33 L Est GFR ( Amer) > 60 Est GFR (MDRD) Non-Af > 60 Glucose 98 Calcium 8.8 Magnesium 1.6 Influenza A (Rapid) NEGATIVE Influenza B (Rapid) NEGATIVE Chest X-Ray 05/13/20 03:03 IMPRESSION: Small right effusion with minimal adjacent airspace opacity copyright 2010 [employer]- All Rights Reserved Chest X-Ray 05/16/20 00:00 IMPRESSION: Right-sided pleural effusion demonstrates increased volume on today's examination. Otherwise stable radiographic appearance of the chest. EKG:. SINUS RHYTHM [MVSPC] . MULTIPLE PREMATURE COMPLEXES, VENT & SUPRAVEN [ADELITA] . BORDERLINE LEFT AXIS DEVIATION [LVOLF] . LOW VOLTAGE IN FRONTAL LEADS [T0DI] . BORDERLINE T ABNORMALITIES, DIFFUSE LEADS QTC is 458 MPRESSION/RECOMMENDATION: 1. Paroxysmal atrial fibrillation. Patient now in sinus rhythm. There is no TIA CVA symptoms. Patient is tolerating a higher dose of sotalol without p roarrhythmia. And there is no QTc prolongation. 2. Pneumonia: Continue antibiotics continue BiPAP as needed and oxygen supplementation. 3. History of hypertension: At present blood pressure on the lower side. 4. History of hemochromatosis: At present does not seem to be any acute problems from this. 5. History of sleep apnea: Present patient continues to be on BiPAP. 6. COVID test code19 test came back negative 7. Obesity. Medications reviewed. Medical regimen and management plan discussed with attending provider on the case. Medical decision making is of moderate complexity. 40-minute spent as patient more than 50% of time spent in direct patient care. Will follow.
--- NOTE | 2020-05-17 17:03 | PDOC PROGRESS REPORT ---
Subjective Progress Note for:: 05/17/20 Subjective:: Patient states that last night, she was having a tough time sleeping but later was able to sleep after being placed on the BiPAP. Probably will be kept off BiPAP this morning. Still having some cough but without much in terms of sputum production. Denies fever or chills. Fevers remained resolved. Notably mildly tachycardic but in sinus rhythm this morning. QTC is acceptable. Discussed with her that we will try to keep her off BiPAP throughout the daytime. Reason For Visit: COVID 19,PNEUMONIA Physical Exam Vital Signs: Temp Pulse Resp BP Pulse Ox 98.1 F 94 13 111/57 L 94 05/17/20 15:18 05/17/20 15:18 05/17/20 15:18 05/17/20 15:18 05/17/20 15:18 Intake & Output 05/16/20 05/17/20 05/18/20 06:59 06:59 06:59 Intake Total 1320 1520 260 Output Total 1625 200 Balance -305 1320 260 Weight 110.3 kg 119.5 kg General appearance: PRESENT: no acute distress, cooperative Neck exam: ABSENT: JVD Respiratory exam: PRESENT: clear to auscultation aroldo, symmetrical, unlabored. ABSENT: tachypnea, wheezes Cardiovascular exam: PRESENT: irregular rhythm, +S1, +S2, tachycardia GI/Abdominal exam: PRESENT: soft. ABSENT: rebound, rigid, tenderness Neurological exam: PRESENT: alert, awake, oriented to person, oriented to place, oriented to time Results Laboratory Results: 05/17/20 06:11 05/17/20 06:11 05/17/20 05/17/20 06:11 06:11 WBC 10.7 H RBC 4.21 Hgb 12.0 Hct 36.4 MCV 87 MCH 28.6 MCHC 33.1 RDW 18.0 H Plt Count 386 Sodium 137.4 Potassium 4.1 Chloride 100 Carbon Dioxide 28 Anion Gap 9 BUN 5 L Creatinine 0.33 L Est GFR ( Amer) > 60 Glucose 98 Calcium 8.8 Magnesium 1.6 05/13/20 02:15 Troponin I < 0.012 Impressions: Chest X-Ray 05/16/20 00:00 IMPRESSION: Right-sided pleural effusion demonstrates increased volume on today's examination. Otherwise stable radiographic appearance of the chest. Assessment and Plan - Diagnosis (1) Acute respiratory failure with hypoxia Is this a current diagnosis for this admission?: Yes Plan: Likely secondary to pneumonia. Chest x-ray showed small to mod sized pleural effusion in right lung with what is likely overlying consolidation. Slept with BiPAP last night. However I do not the patient actually needs the BiPAP especially as venous blood gases have essentially been adequate without any CO2 retention We will keep patient off bipap. She actually did pretty well all day without BiPAP and is only on about 1 L nasal cannula at this point. I do suspect patient may have sleep apnea and may need some kind of NIPPV at nighttime. (2) Community acquired pneumonia Qualifiers: Laterality: right Lung location: lower lobe of lung Qualified Code(s): J18.9 - Pneumonia, unspecified organism Is this a current diagnosis for this admission?: Yes Plan: Fevers remain resolved and leukocytosis continues to improve We will continue antibiotics for today and switch to p.o. antibiotics tomorrow. Incentive spirometer. We will try to get patient up and out of bed. Physical therapy (3) Permanent atrial fibrillation Is this a current diagnosis for this admission?: Yes Plan: Likely being triggered by patient's recent infection with hypoxia and fevers. Currently on Xarelto. Continues sotalol which is up to 160 mg every 12 hours currently. QTC is adequate today. Dr. Morales is following. Recommendations appreciated. (4) Suspected sleep apnea Is this a current diagnosis for this admission?: Yes Plan: Unfortunately patient has not had any recent sleep studies to help qualify her for CPAP. I do highly suspect that she has obstructive sleep apnea especially given her very high Mallampati score, body habitus and symptoms. I have discussed with planner internship and we will obtain nocturnal pulse oximetry tonight on 1 L NC to see if patient can qualify for nocturnal CPAP. (5) Sepsis Qualifiers: Sepsis type: sepsis due to unspecified organism Sepsis acute organ dysf unction status: with acute organ dysfunction Severe sepsis acute organ dy sfunction type: acute respiratory failure Acute respiratory failure type: with hypoxia Severe sepsis shock status: without septic shock Qualified Code(s): A41.9 - Sepsis, unspecified organism; R65.20 - Severe sepsis without septic shock; J96.01 - Acute respiratory failure with hypoxia Is this a current diagnosis for this admission?: Yes Plan: Sepsis has resolved. Her fevers have also broken as well since 05/14/2020. (6) Obesity (BMI 30-39.9) Is this a current diagnosis for this admission?: Yes - Time Time Spent with patient: 15-24 minutes Anticipated Discharge Disposition: Home, Self Care Anticipated Discharge Timeframe: within 48 hours
[2020-05-17] MEDS: ACETAMINOPHEN 325 MG TABLET PO PRN (17:58)
[2020-05-17] MEDS: RIVAROXABAN 10 MG TABLET PO SCH (17:58)
[2020-05-17 18:57] LABS: A TYPE INFLUENZA AG NEGATIVE (NEGATIVE); B INFLUENZA AG NEGATIVE (NEGATIVE)
[2020-05-17] MEDS: MELATONIN 5 MG TABLET PO SCH (21:27)
[2020-05-18] MEDS: AZITHROMYCIN 500 MG in DEXTROSE 5%-WATER 250 ML IV SCH (05:12)
[2020-05-18] MEDS: LEVALBUTEROL HCL NEB 1.25 MG/3 ML AMPUL NEB PRN (05:47)
[2020-05-18] MEDS: CEFTRIAXONE 2 GM/D5W RTU 2 GM/50 ML RTUPB IV SCH (06:25)
[2020-05-18] MEDS: TRAMADOL HCL 50 MG TABLET PO PRN ×2 (06:25→18:54)
[2020-05-18] MEDS: PANTOPRAZOLE SODIUM 20 MG TABLET.DR PO SCH (06:25)
[2020-05-18 06:49] LABS: HEMATOCRIT 38.7 % (36.0-47.0); HEMOGLOBIN 12.6 g/dL (12.0-15.5); MEAN CORPUSCULAR HEMOGLOBIN 28.7 pg (27.0-33.4); MEAN CORPUSCULAR HGB CONC 32.7 g/dL (32.0-36.0); MEAN CORPUSCULAR VOLUME 88 fl (80-97); PLATELET COUNT 457 10^3/uL (150-450); RED CELL DISTRIBUTION WIDTH 17.9 % (11.5-14.0); WHITE BLOOD COUNT 9.7 10^3/uL (4.0-10.5)
[2020-05-18] MEDS: FLUTICASONE/VILANTEROL 100-25 MCG/DOSE IH SCH (09:02)
[2020-05-18] MEDS: ASCORBIC ACID 500 MG TABLET PO SCH ×2 (09:02→18:05)
[2020-05-18] MEDS: SOTALOL HCL 80 MG TABLET PO SCH ×2 (09:02→21:34)
[2020-05-18] MEDS: TIMOLOL MALEATE 0.5% OPH SOLN 5 ML OU SCH ×2 (09:03→21:36)
[2020-05-18] MEDS: DOCUSATE SODIUM 100 MG/10 ML UDC PO SCH (09:03)
[2020-05-18] MEDS: BRIMONIDINE TARTRATE 0.2% OPH SOLN 5 ML OU SCH ×2 (09:04→21:35)
[2020-05-18] MEDS: NYSTATIN TOPICAL POWDER 15 GM TP SCH ×2 (09:06→18:06)
[2020-05-18 11:35] LABS: ABSOLUTE RETICS # 0.061 10^6/uL (0.028-0.122); RETICULOCYTE COUNT (AUTO) 1.35 % (0.66-2.85)
--- NOTE | 2020-05-18 11:36 | PDOC PROGRESS REPORT ---
Subjective Progress Note for:: 05/18/20 Subjective:: Patient states that she did not sleep well last night as well. She did have a nocturnal pulse oximetry done on only 1 L nasal cannula during which she desaturated below 89% for only a total of 47 seconds in 7-hour duration. She does states that she has some abdominal pain which is mostly diffuse. She states abdominal pain limits her breathing at times. She had a bowel movement 2 days ago which she says was a decent amount. She was unable to ambulate much with physical therapy yesterday. However she is reluctant to rehab. Reason For Visit: FEVER,PNEUMONIA Physical Exam Vital Signs: Temp Pulse Resp BP Pulse Ox 97.7 F 106 H 14 129/86 H 96 05/18/20 09:13 05/18/20 07:35 05/18/20 07:35 05/18/20 07:35 05/18/20 07:35 Pulse Oximeter Nocturnal Start: 05/17/20 16:50 Freq: RTQ4 Status: Complete Protocol: Document 05/18/20 05:07 [facility] (Rec: 05/18/20 05:55 [facility] [id number]) Nocturnal Pulse Oximetry Equipment Usage Equipment Discontinued Continuous SpO2 Machine # [id number] Intake & Output 05/17/20 05/18/20 05/19/20 06:59 06:59 06:59 Intake Total 1520 1145 50 Output Total 200 1600 Balance 1320 -455 50 Weight 119.5 kg 118.3 kg General appearance: PRESENT: no acute distress, cooperative, obese Neck exam: ABSENT: JVD Respiratory exam: PRESENT: clear to auscultation aroldo, symmetrical, other - Seems to do a lot of belly breathing even though she does not appear in distress. ABSENT: rales, rhonchi, stridor, tachypnea, wheezes Cardiovascular exam: PRESENT: irregular rhythm, +S1, +S2. ABSENT: tachycardia GI/Abdominal exam: PRESENT: hernia - Ventral reducible hernia, normal bowel sounds, soft, tenderness - Diffuse on moderate palpation. ABSENT: ascites, firm, guarding, rebound, rigid Neurological exam: PRESENT: alert, awake, oriented to person, oriented to place, oriented to time, oriented to situation Psychiatric exam: ABSENT: agitated, anxious Results Laboratory Results: 05/18/20 05:47 05/17/20 06:11 05/18/20 05:47 WBC 9.7 RBC 4.40 Hgb 12.6 Hct 38.7 MCV 88 MCH 28.7 MCHC 32.7 RDW 17.9 H Plt Count 457 H 05/13/20 05:50 Blood Blood Culture - Final NO GROWTH IN 5 DAYS 05/13/20 03:50 Blood Blood Culture - Final NO GROWTH IN 5 DAYS 05/13/20 02:15 Troponin I < 0.012 Impressions: Chest X-Ray 05/16/20 00:00 IMPRESSION: Right-sided pleural effusion demonstrates increased volume on today's examination. Otherwise stable radiographic appearance of the chest. Assessment and Plan - Diagnosis (1) Acute respiratory failure with hypoxia Is this a current diagnosis for this admission?: Yes Plan: Likely secondary to pneumonia. Chest x-ray showed small to mod sized pleural effusion in right lung with what is likely overlying consolidation. Venous blood gas shows no evidence of CO2 retention. Hypoxia has improved as patient is only on about 1 L nasal cannula We will go ahead and discontinue BiPAP. Patient notably has belly breathing even though notes in apparent distress. Uncertain if this is due to her weight. No evidence of CO2 retention has been noted. We will check a high-res CT to see if any interstitial lung disease given patient's history of hemochromatosis. (2) Community acquired pneumonia Qualifiers: Laterality: right Lung location: lower lobe of lung Qualified Code(s): J18.9 - Pneumonia, unspecified organism Is this a current diagnosis for this admission?: Yes Plan: Fevers remain resolved and leukocytosis continues to improve Completed 5 days of azithromycin. Discontinue ceftriaxone and switch to p.o. cefuroxime for 2 more days. Incentive spirometer. (3) Permanent atrial fibrillation Is this a current diagnosis for this admission?: Yes Plan: Likely being triggered by patient's recent infection with hypoxia and fevers. Currently on Xarelto. Continues sotalol which is up to 160 mg every [address] Morales is following. Recommendations appreciated. (4) Hemochromatosis Qualifiers: Hemochromatosis type: unspecified Qualified Code(s): E83.119 - Hemochromatosis, unspecified Is this a current diagnosis for this admission?: Yes Plan: Informed the patient has hemochromatosis which have confirmed with the patient. This was diagnosed many years ago. Abdominal CT 02/2020 showed significant hepatic steatosis, hepatomegaly, diverticulosis without diverticulitis, and uninflamed large duodenal diverticulum. I reviewed imaging did not seem to notes significant ascites. No history of liver failure. I will check iron studies to evaluate her current iron saturation. (5) Suspected sleep apnea Is this a current diagnosis for this admission?: Yes Plan: Nocturnal pulse oximetry actually was pretty unimpressive done on 1 L nasal cannula and SPO2 only dropped below 89% for 47 seconds out of 7hr duration of the test. (6) Sepsis Qualifiers: Sepsis type: sepsis due to unspecified organism Sepsis acute organ dysfunction status: with acute organ dysfunction Severe sepsis acute organ dysfunction type: acute respiratory failure Acute respiratory failure type: with hypoxia Severe sepsis shock status: without septic shock Qualified Code(s): A41.9 - Sepsis, unspecified organism; R65.20 - Severe sepsis without septic shock; J96.01 - Acute respiratory failure with hypoxia Is this a current diagnosis for this admission?: Yes Plan: Sepsis has resolved. (7) Osteoarthritis of knees, bilateral Qualifiers: Osteoarthritis type: primary Qualified Code(s): M17.0 - Bilateral primary osteoarthritis of knee Is this a current diagnosis for this admission?: Yes Plan: Patient has significant ambulatory dysfunction. She admits to history of [id number] osteoarthritis in her knees which limits ambulation. Gets around with a walker at home but only typically able to ambulate very short distances within the apartment. Her obesity is contributing to this problem. Physical therapy worked with patient and patient was barely able to stand for short period of time with max assist. I discussed SNF with her but she is very reluctant to wait. Discussed with son as well who will further have conversation with her. She did [employer] helping at home. (8) Obesity (BMI 30-39.9) Is this a current diagnosis for this admission?: Yes - Time Time Spent with patient: 15-24 minutes Anticipated Discharge Disposition: [facility] Anticipated Discharge Timeframe: within 48 hours
[2020-05-18 12:19] LABS: IRON(TIBC) 25.3 ug/dL (37-170)
[2020-05-18 13:27] LABS: FOLATE 5.19 ng/mL (>2.76)
--- NOTE | 2020-05-18 16:08 | RADIOLOGY REPORT (SQ) ---
EXAM DESCRIPTION: CT CHEST WITHOUT IMAGES COMPLETED DATE/TIME: 05/18/2020 3:56 pm REASON FOR STUDY: HIGH RES CT eval for ILD and pleural effusion COMPARISON: 08/13/2019. Chest x-ray 05/16/2020. TECHNIQUE: Prone and supine high resolution technique imaging performed through the lungs windowed f or lung windows. Additional focused imaging through the levels of the aortic arch, jack and diaphr agm. Limited evaluation of the mediastinum. All CT scanners at this facility use dose modulation, iterative reconstruction, and/or weight based d osing when appropriate to reduce radiation dose to as low as reasonably achievable (ALARA). [facility]: Dose Right [facility]: CareDose [facility]: Dose Right [facility]: Teradose 4D [facility]: [employer] RADIATION DOSE: CT Rad equipment meets quality standard of care and radiation dose reduction techniq ues were employed. CTDIvol: 4.6 mGy. DLP: 137 mGy-cm. mGy. LIMITATIONS: None. FINDINGS: LUNGS AND PLEURA: Right pleural effusion and right lower lobe atelectasis not significantl y changed when correlated with recent plain films. No cystic changes. No bronchiectasis. No fibros is. LIMITED MEDIASTINUM: No masses. BONES: No significant findings. OTHER: No other significant finding. IMPRESSION: Right pleural effusion and right lower lobe collapse. No fibrosis. TECHNICAL DOCUMENTATION: JOB ID: [id number] Quality ID # [id number]: Final reports with documentation of one or more dose reduction techniques (e.g., Au tomated exposure control, adjustment of the mA and/or kV according to patient size, use of iterative reconstruction technique) 2010 [employer]- All Rights Reserved Reading location - IP/workstation name: [email or web address]
[2020-05-18] MEDS: RIVAROXABAN 10 MG TABLET PO SCH (18:05)
[2020-05-18] MEDS ORDERED: DIGOXIN INJ 0.5 MG/2 ML AMPULE ONE (20:07)
[2020-05-18 20:38] LABS: POTASSIUM 4.3 mmol/L (3.6-5.0)
[2020-05-18] MEDS ORDERED: DIGOXIN INJ 0.5 MG/2 ML AMPULE IV ONE (21:00)
[2020-05-18] MEDS ORDERED: DILTIAZEM HCL/D5W 125 MG/125 ML RTUINJ IV ONE (21:17)
[2020-05-18] MEDS: DILTIAZEM HCL/D5W 125 MG/125 ML RTUINJ IV PRN (21:31)
[2020-05-18] MEDS: MELATONIN 5 MG TABLET PO SCH (21:34)
--- NOTE | 2020-05-18 21:52 | Progress Note ---
Provider Note Provider Note: CARDIOLOGY PROGRESS NOTE by Dr. Elodia Ferreira on 05/18/2020. The patient was seen earlier around 3 PM and subsequently 8 10:50 PM. A total of 60 minutes was spent on this patient. Including the 2 visits. SUBJECTIVE: EARLY THIS MORNING THE PATIENT REMAINED IN SINUS RHYTHM. BUT THE BREATHING WAS SLIGHTLY LABORED LABORED. SHE HAD A HIGH RESOLUTION CT OF THE CHEST WITHOUT CONTRAST AND THIS SHOWED THAT THERE WAS A PLEURAL EFFUSION. THE PATIENT MAY BENEFIT FROM THORACENTESIS. 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 SUBSEQUENTLY AT NIGHT THE PATIENT DEVELOPED RECURRENCE OF ATRIAL FIBRILLATION WITH RAPID VENTRICULAR RESPONSE WITH NO RESPONSE TO 0.25 MG OF DIGOXIN IV PUSH. SHE ALSO WAS GIVEN her usual dose of sotalol. Subsequently since heart rate was still up the patient was started on Cardizem drip at 2.5 mg/h and subsequently increased to 5 mg/h. The patient may benefit from thoracentesis of the right pleural effusion. Will discuss with the hospitalist. She does have some shortness of breath. But denies any chest pain or discomfort. She does feel palpitations. Physical EXAMINATION: The patient is morbidly obese. In mild respiratory distress Selected Entries 05/18/20 20:18 Temperature 98.0 F Temperature Oral Source Pulse Rate 132 H Respiratory 16 Rate Blood Pressure 132/59 H Blood Pressure 83 Mean BP Location Left Arm BP Position Supine O2 Sat by Pulse 93 Oximetry Oxygen Flow 2.00 Rate Oxygen Delivery Nasal Cannula Method HEAD: Is atraumatic normocephalic. PUPILS are equal round regular reactive to light accommodation extraocular movements are normal. There is no conjunctival pallor. There is no scleral icterus. ENT is negative note patient is on BiPAP. NECK: Supple. There is no JVD. Carotids are equal there is no bruits. There is no lymphadenopathy. There is no goiter. There is no accessory muscle respiration use. Trachea central. LUNGS: Shows a few scattered rhonchi. There is dry crackles in the right base, about an area of dullness in absent bilateral breath sounds in the right base.. There is no rales of CHF. HEART: S1-S2 is heard. S1 is of variable intensity. The patient is tachycardic. There is systolic murmur left sternal border and the apex there is no rub. ABDOMEN: Is obese. Nontender there is no hepatosplenomegaly. Bowel sounds are well heard. There is no tender areas masses. EXTREMITIES: Femorals are deep. There is no femoral bruits. Leg pulses are well felt. There is no pedal edema. There is no DVT or cellulitis. There is no cyanosis or clubbing. TACK PICKER: The patient is drowsy but without any focal deficits. PSYCHIATRIC: In spite of her drowsiness the patient judgment insight are intact and affect is normal.: Labs- All tests 24 hr 05/18/20 05/18/20 05/18/20 05:47 05:47 11:22 WBC 9.7 RBC 4.40 Hgb 12.6 Hct 38.7 MCV 88 MCH 28.7 MCHC 32.7 RDW 17.9 H Plt Count 457 H Reticulocyte # 0.061 Retic Count (auto) 1.35 Potassium 4.3 Magnesium 1.6 Iron TIBC % Saturation Ferritin Vitamin B12 Folate 05/18/20 11:47 WBC RBC Hgb Hct MCV MCH MCHC RDW Plt Count Reticulocyte # Retic Count (auto) Potassium Magnesium Iron 25.3 L TIBC 248 L % Saturation 10 Ferritin 48.40 Vitamin B12 436.0 Folate 5.19 Chest X-Ray 05/13/20 03:03 IMPRESSION: Small right effusion with minimal adjacent airspace opacity copyright 2011 [employer]- All Rights Reserved Chest X-Ray 05/16/20 00:00 IMPRESSION: Right-sided pleural effusion demonstrates increased volume on today's examination. Otherwise stable radiographic appearance of the chest. Chest CT 05/18/20 00:00 IMPRESSION: Right pleural effusion and right lower lobe collapse. No fibrosis. iMPRESSION/RECOMMENDATION: 1. Recurrence of atrial fibrillation with rapid ventricular response. Continue sotalol. The patient was given a dose of digoxin 0.25 mg IV push. This did not bring the rate down. Hence we will start the patient on Cardizem drip. The patient was started on Cardizem drip at 2.5 mg/h and increased subsequently to 5 mg/h. There is no TIA CVA symptoms. Patient is tolerating a higher dose of sotalol without proarrhythmia. And there is no QTc prolongation. 2. Pneumonia: Continue antibiotics continue BiPAP as needed and oxygen supplementation. 3. Right pleural effusion: Would recommend getting a ultrasound of the right thorax to see if this can be drained. 4 history of hypertension: At present blood pressure on the lower side. 5. History of hemochromatosis: At present does not seem to be any acute problems from this. The patient CT shows enlarged liveR, 6. History of sleep apnea: Present patient continues to be on BiPAP. 7. COVID test code19 test came back negative 8. Obesity. EKG reviewed. Medications adjusted. New medications added. Medical decision making is of high complexity. Today a total of 60 minutes was spent on 2 visits. Case discussed with the attending provider on the case. Will follow.
[2020-05-19] MEDS ORDERED: FUROSEMIDE INJ/PF 20 MG/2 ML SDV IV ONE (01:45)
[2020-05-19] MEDS: TRAMADOL HCL 50 MG TABLET PO PRN ×2 (01:54→15:51)
[2020-05-19] MEDS: PANTOPRAZOLE SODIUM 20 MG TABLET.DR PO SCH (05:50)
[2020-05-19] MEDS: MAGNESIUM OXIDE 400 MG TABLET PO SCH ×2 (09:55→17:38)
[2020-05-19] MEDS: SOTALOL HCL 80 MG TABLET PO SCH ×2 (09:55→21:31)
[2020-05-19] MEDS: ASCORBIC ACID 500 MG TABLET PO SCH ×2 (09:57→17:38)
[2020-05-19] MEDS: TIMOLOL MALEATE 0.5% OPH SOLN 5 ML OU SCH ×2 (09:58→21:39)
[2020-05-19] MEDS: DOCUSATE SODIUM 100 MG CAPSULE PO SCH (09:59)
[2020-05-19] MEDS: FLUTICASONE/VILANTEROL 100-25 MCG/DOSE IH SCH (09:59)
[2020-05-19] MEDS: BRIMONIDINE TARTRATE 0.2% OPH SOLN 5 ML OU SCH ×2 (09:59→21:43)
[2020-05-19] MEDS ORDERED: CEFUROXIME 500 MG TABLET PO SCH (10:00)
[2020-05-19] MEDS: NYSTATIN TOPICAL POWDER 15 GM TP SCH ×2 (10:03→17:38)
[2020-05-19] MEDS: LEVALBUTEROL HCL NEB 1.25 MG/3 ML AMPUL NEB PRN (10:14)
--- NOTE | 2020-05-19 13:38 | RADIOLOGY REPORT (SQ) ---
EXAM DESCRIPTION: CT ABD/PELVIS WITH IV ORAL IMAGES COMPLETED DATE/TIME: 05/19/2020 1:19 pm REASON FOR STUDY: abdominal pain, sob COMPARISON: CT abdomen pelvis 03/19/2020 CT abdomen pelvis 08/13/2019 MRI abdomen 08/05/2019 TECHNIQUE: CT scan of the abdomen and pelvis performed using helical scanning technique with dynamic intravenous contrast injection. Patient drank oral contrast. Images reviewed with lung, soft tissue , and bone windows. Reconstructed coronal and sagittal MPR images reviewed. Delayed images for evalua tion of the urinary system also acquired. All images stored on PACS. All CT scanners at this facility use dose modulation, iterative reconstruction, and/or weight based d osing when appropriate to reduce radiation dose to as low as reasonably achievable (ALARA). [facility]: Dose Right [facility]: CareDose [facility]: Dose Right [facility]: Teradose 4D [facility]: [employer] CONTRAST TYPE AND DOSE: contrast/concentration: Isovue 350.00 mmol/ml; Total Contrast Delivered: 98. 2 ml; Total Saline Delivered: 20.0 ml RENAL FUNCTION: Creatinine 0.3 RADIATION DOSE: CT Rad equipment meets quality standard of care and radiation dose reduction techniq ues were employed. CTDIvol: 21.8 - 28.9 mGy. DLP: 2854 mGy-cm.. LIMITATIONS: None. FINDINGS: LOWER CHEST: Moderate sized loculated right pleural effusion, with bandlike consolidation and volume loss in the right lower lobe. Along the right posterior costophrenic sulcus, rim enhancin g loculation of fluid is present abutting the right lobe liver measuring about 6 by 2.4 cm by 4.5 cm. This could represent a small abscess. Best shown on axial image 22 and coronal image 69. LIVER: Profound decrease in density from fatty infiltration no masses. Normal enhancement of the por kisha vein and hepatic veins SPLEEN: Normal size. No focal lesions. PANCREAS: No masses. No significant calcifications. No adjacent inflammation or peripancreatic fluid collections. Pancreatic duct not dilated. GALLBLADDER: Surgically absent. ADRENAL GLANDS: No significant masses or asymmetry. RIGHT KIDNEY AND URETER: No solid masses. 5 cm right midpole renal cortical cyst. No significant ca lcifications. No hydronephrosis or hydroureter. LEFT KIDNEY AND URETER: No solid masses. 2 cm left midpole renal cortical cyst. 2 mm left upper peyton e and lower pole intrarenal nonobstructive stones. No hydronephrosis or hydroureter. AORTA AND VESSELS: No aneurysm. No dissection. RETROPERITONEUM: No retroperitoneal adenopathy, hemorrhage or masses. BOWEL AND PERITONEAL CAVITY: Patient drank oral contrast. No free intraperitoneal air or fluid. No CT evidence of bowel obstruction. Descending colon diverticuli without signs of diverticulitis. Pa tient post sigmoid colectomy APPENDIX: Surgically absent PELVIS: No mass. No free fluid. Normal bladder. Post hysterectomy ABDOMINAL WALL: Intact laparoscopic ventral hernia repair BONES: No significant or acute findings. OTHER: No other significant finding. IMPRESSION: Multiloculated right pleural effusion with right lower lobe airspace disease. Rim enhan cing loculation of fluid in the posterior right costophrenic sulcus abutting the posterior right lobe liver TECHNICAL DOCUMENTATION: JOB ID: [id number] Quality ID # [id number]: Final reports with documentation of one or more dose reduction techniques (e.g., Au tomated exposure control, adjustment of the mA and/or kV according to patient size, use of iterative reconstruction technique) 2010 [employer]- All Rights Reserved Reading location - IP/workstation name: [email or web address]
--- NOTE | 2020-05-19 13:48 | RADIOLOGY REPORT (SQ) ---
EXAM DESCRIPTION: U/S CHEST IMAGES COMPLETED DATE/TIME: 05/19/2020 1:30 pm REASON FOR STUDY: right pleural effusion quantification COMPARISON: None. TECHNIQUE: Dynamic and static grayscale images acquired of the localized site of clinical concern an d recorded on PACS. Additional selected color Doppler and spectral images recorded. SITE OF CONCERN: Right pleural space LIMITATIONS: None. FINDINGS: There is a small loculated right pleural effusion. IMPRESSION: Loculated small right pleural effusion. TECHNICAL DOCUMENTATION: JOB ID: [id number] 2010 [employer]- All Rights Reserved Reading location - IP/workstation name: [email or web address]
[2020-05-19] MEDS: DILTIAZEM HCL/D5W 125 MG/125 ML RTUINJ IV PRN (14:23)
[2020-05-19] MEDS ORDERED: DIGOXIN INJ 0.5 MG/2 ML AMPULE IV ONE (14:38)
[2020-05-19] MEDS ORDERED: NORMAL SALINE 1000 ML 1,000 ML IV ONE (14:46)
--- NOTE | 2020-05-19 14:49 | PDOC PROGRESS REPORT ---
Subjective Progress Note for:: 05/19/20 Subjective:: Patient went into A. fib with RVR last night. Was started on a Cardizem drip. This morning she still having a little bit of shortness of breath but not in distress. She denies any chest pains. She does vividly feel her palpitations. Still has some abdominal pain. Reason For Visit: COVID 19,PNEUMONIA Physical Exam Vital Signs: Temp Pulse Resp BP Pulse Ox 97.3 F 103 H 16 95/50 L 93 05/19/20 10:00 05/19/20 13:00 05/19/20 10:14 05/19/20 13:00 05/19/20 10:14 Pulse Oximeter Nocturnal Start: 05/17/20 16:50 Freq: RTQ4 Status: Complete Protocol: Document 05/18/20 05:07 [facility] (Rec: 05/18/20 05:55 [facility] [email or web address]) Nocturnal Pulse Oximetry Equipment Usage Equipment Discontinued Continuous SpO2 Machine # [id number] Intake & Output 05/18/20 05/19/20 05/20/20 06:59 06:59 06:59 Intake Total 1145 1187 Output Total 1600 2650 65 Balance -455 -1463 -65 Weight 118.3 kg 117.1 kg General appearance: PRESENT: no acute distress, cooperative Neck exam: ABSENT: JVD Respiratory exam: PRESENT: decreased breath sounds - Lower lung right, symmetrical, unlabored. ABSENT: tachypnea, wheezes Cardiovascular exam: PRESENT: irregular rhythm, +S1, +S2, tachycardia GI/Abdominal exam: PRESENT: hernia - Reducible ventral, soft, tenderness - Present on moderate palpation. ABSENT: distended, firm, guarding, rebound, rigid Extremities exam: ABSENT: calf tenderness Neurological exam: PRESENT: alert, awake, oriented to person, oriented to place, oriented to time, oriented to situation Psychiatric exam: ABSENT: agitated, anxious Focused psych exam: ABSENT: pressured speech Skin exam: ABSENT: jaundice Results Laboratory Results: 05/18/20 05:47 05/18/20 11:22 05/18/20 11:22 Potassium 4.3 Magnesium 1.6 05/13/20 02:15 Troponin I < 0.012 Impressions: Chest X-Ray 05/16/20 00:00 IMPRESSION: Right-sided pleural effusion demonstrates increased volume on today's examination. Otherwise stable radiographic appearance of the chest. Chest CT 05/18/20 00:00 IMPRESSION: Right pleural effusion and right lower lobe collapse. No fibrosis. Chest Ultrasound 05/19/20 00:00 IMPRESSION: Loculated small right pleural effusion. Abdomen/Pelvis CT 05/19/20 13:00 IMPRESSION: Multiloculated right pleural effusion with right lower lobe airspace disease. Rim enhancing loculation of fluid in the posterior right costophrenic sulcus abutting the posterior right lobe liver Assessment and Plan - Diagnosis (1) Acute respiratory failure with hypoxia Is this a current diagnosis for this admission?: Yes Plan: Likely secondary to pneumonia, compressive atelectasis and loculated pleural effusion. Venous blood gas showed no evidence of CO2 retention. Patient is currently on 2 L nasal cannula. We will wean as tolerated. (2) Loculated pleural effusion Is this a current diagnosis for this admission?: Yes Plan: CT shows multiple loculations and right pleura. Likely complicated par apneumonic. Small to moderate in size but with volume loss and as such patient will need to have this drained to avoid lung trapping. I have consulted surgery to see if the chest tube can be placed and will send some diagnostic labs as well. Julio Cesarlubna is on hold Will check coags (3) Abdominal visceral abscess Is this a current diagnosis for this admission?: Yes Plan: Abdominal CT did also oyster picker a small [id number] rim-enhancing lesion which could represent small abscess noted next to the right liver lobe. I discussed with the radiologist who confirmed that this lesion is likely not in the right pleura and likely in the abdomen but is quite small and may or may not represent an actual abscess. After discussion, plan is to first drain the loculated pleural effusions and continue Augmentin and then reimage the abdomen to see if any progression of this questionable abscess. Fevers remain resolved. (4) Community acquired pneumonia Qualifiers: Laterality: right Lung location: lower lobe of lung Qualified Code(s): J18.9 - Pneumonia, unspecified organism Is this a current diagnosis for this admission?: Yes Plan: Fevers r and leukocytosis have resolved. Completed 5 days of azithromycin and ceftriaxone. Currently on Augmentin. (5) Permanent atrial fibrillation Is this a current diagnosis for this admission?: Yes Plan: In A. fib RVR. On sotalol and started on diltiazem drip. Got some digoxin. Dr. Morales is following. Robin is on hold for anticipated procedure. Monitor on telemetry. (6) Hemochromatosis Qualifiers: Hemochromatosis type: unspecified Qualified Code(s): E83.119 - Hemochromatosis, unspecified Is this a current diagnosis for this admission?: Yes Plan: Patient has history of hemochromatosis and does have hepatomegaly. However currently abdominal CT shows significant improvement in fatty liver disease and iron saturation is actually not high at this point. (7) Sepsis Qualifiers: Sepsis type: sepsis due to unspecified organism Sepsis acute organ dysfunction status: with acute organ dysfunction Severe sepsis acute organ dysfunction type: acute respiratory failure Acute respiratory failure type: with hypoxia Severe sepsis shock status: without septic shock Qualified Code(s): A41.9 - Sepsis, unspecified organism; R65.20 - Severe sepsis without septic shock; J96.01 - Acute respiratory failure with hypoxia Is this a current diagnosis for this admission?: Yes Plan: Sepsis has resolved. (8) Osteoarthritis of knees, bilateral Qualifiers: Osteoarthritis type: primary Qualified Code(s): M17.0 - Bilateral primary osteoarthritis of knee Is this a current diagnosis for this admission?: Yes Plan: Patient has significant ambulatory dysfunction. She admits to history of bone-o n-bone osteoarthritis in her knees which limits ambulation. Gets around with a walker at home but only typically able to ambulate very short distances within the apartment. Her obesity is contributing to this problem. Patient still did poorly with PT yesterday. She is more amenable to SNF at this point if she continues not to show much improvement by the time of discharge. (9) Obesity (BMI 30-39.9) Is this a current diagnosis for this admission?: Yes - Time Time Spent with patient: 15-24 minutes Anticipated Discharge Disposition: [facility] Facility Anticipated Discharge Timeframe: within 72 hours
[2020-05-19 15:16] LABS: INTERNATIONAL RATION (INR) 1.43; PROTHROMBIN TIME 17.6 SEC (11.4-15.4)
[2020-05-19 15:29] LABS: TOTAL PROTEIN 5.6 g/dL (6.3-8.2)
[2020-05-19] MEDS: MELATONIN 5 MG TABLET PO SCH (21:31)
[2020-05-19] MEDS: AMOXICILLIN TR/POT CLAVULANATE 875-125 MG TAB PO SCH (21:38)
--- NOTE | 2020-05-19 22:40 | Progress Note ---
Provider Note Provider Note: CARDIOLOGY PROGRESS NOTE by Dr. Elodia Ferreira. On 05/19/2020. SUBJECTIVE: The patient continues to be to be in atrial fibrillation. Early this morning her heart rate was fast and hence the patient was placed on a Cardizem drip which is increased to 10 mg/h. Subsequently the heart rate did come down and since the blood pressure is soft it has been quite will decrease to 7.5 mg/h. She states her breathing is better. CT scan and ultrasound of the right chest shows mild to moderate loculated pleural effusion. Surgery has been consulted to see if this can be drained with a chest tube. Her Xarelto has been held. There is no TIA CVA symptoms. She has no chest pain discomfort. There is no proarrhythmia on sotalol. PHYSICAL EXAMINATION: The patient is morbidly obese. Selected Entries 05/19/20 15:33 Temperature 97.7 F Temperature Oral Source Pulse Rate 102 H Respiratory 20 Rate Blood Pressure 101/43 L Blood Pressure 62 Mean BP Location Left Arm BP Position Supine O2 Sat by Pulse 95 Oximetry Oxygen Flow 3.00 Rate Oxygen Delivery Nasal Cannula Method HEAD: Is atraumatic normocephalic. PUPILS are equal round regular reactive to light accommodation extraocular movements are normal. There is no conjunctival pallor. There is no scleral icterus. ENT is negative note patient is on BiPAP. NECK: Supple. There is no JVD. Carotids are equal there is no bruits. There is no lymphadenopathy. There is no goiter. There is no accessory muscle respiration use. Trachea central. LUNGS: Shows a few scattered rhonchi. There is dry crackles in the right base, above an area of dullness in absent bilateral breath sounds in the right base.. There is no rales of CHF. HEART: S1-S2 is heard. S1 is of variable intensity. The patient is tachycardic. There is systolic murmur left sternal border and the apex there is no rub. ABDOMEN: Is obese. Nontender there is no hepatosplenomegaly. Bowel sounds are well heard. There is no tender areas masses. EXTREMITIES: Femorals are deep. There is no femoral bruits. Leg pulses are well felt. There is no pedal edema. There is no DVT or cellulitis. There is no cyanosis or clubbing. 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 PSYCHIATRIC: In spite of her drowsiness the patient judgment insight are intact and affect is normal. Labs- All tests 24 hr 05/19/20 05/19/20 14:49 14:49 PT 17.6 H INR 1.43 APTT 44.0 H Lactate Dehydrogenase 185 Total Protein 5.6 L Chest X-Ray 05/13/20 03:03 IMPRESSION: Small right effusion with minimal adjacent airspace opacity copyright 2010 [employer]- All Rights Reserved Chest X-Ray 05/16/20 00:00 IMPRESSION: Right-sided pleural effusion demonstrates increased volume on today's examination. Otherwise stable radiographic appearance of the chest. Chest CT 05/18/20 00:00 IMPRESSION: Right pleural effusion and right lower lobe collapse. No fibrosis. Chest Ultrasound 05/19/20 00:00 IMPRESSION: Loculated small right pleural effusion. Abdomen/Pelvis CT 05/19/20 13:00 IMPRESSION: Multiloculated right pleural effusion with right lower lobe airspace disease. Rim enhancing loculation of fluid in the posterior right costophrenic sulcus abutting the posterior right lobe liver iMPRESSION/RECOMMENDATION: 1. Recurrence of atrial fibrillation with rapid ventricular response. Continue sotalol. The patient was given a dose of digoxin 0.25 mg IV push. This did not bring the rate down. Hence we will start the patient on Cardizem drip. The patient was started on Cardizem drip at 2.5 mg/h and increased subsequently to 5 mg/h. There is no TIA CVA symptoms. Patient is tolerating a higher dose of sotalol without proarrhythmia. And there is no QTc prolongation. 2. Pneumonia: Continue antibiotics continue BiPAP as needed and oxygen supplementation. 3. Right pleural effusion: Ultrasound of the right thorax and CT scan of the thorax shows there is mild to moderate loculated pleural effusion. Surgery has been consulted to see if the chest tube can be placed. Hence her Xarelto has been held. 4 history of hypertension: At present blood pressure on the lower side. 5. History of hemochromatosis: At present does not seem to be any acute problems from this. The patient CT shows enlarged liveR, 6. History of sleep apnea: Present patient continues to be on BiPAP. 7. COVID test code19 test came back negative 8. Obesity. Medications reviewed. Medications added and adjusted. Medical decision making is of high complexity. Medical regimen and management plan discussed with attending The case. 40 minutes spent on this patient more than 50% of time spent in direct patient care. Will follow.
[2020-05-20 05:23] LABS: HEMOGLOBIN 11.7 g/dL (12.0-15.5); MEAN CORPUSCULAR HEMOGLOBIN 28.3 pg (27.0-33.4); MEAN CORPUSCULAR HGB CONC 32.6 g/dL (32.0-36.0); MEAN CORPUSCULAR VOLUME 87 fl (80-97); PLATELET COUNT 547 10^3/uL (150-450); RED BLOOD COUNT 4.15 10^6/uL (3.72-5.28); RED CELL DISTRIBUTION WIDTH 18.2 % (11.5-14.0); WHITE BLOOD COUNT 9.3 10^3/uL (4.0-10.5)
--- NOTE | 2020-05-20 05:24 | PDOC CONSULTATION ---
Consultation Consult Date: 05/19/20 Provider Consulted: SURGICAL SURGICALIST Consult reason:: Loculated parapneumonic effusion, right chest History of Present Illness Admission Date/PCP: 05/13/20 06:46 KAITLIN NEGRON MD History of Present Illness: KAMINI FERNANDEZ is a 70 year old female seen in consultation at the request of the hospitalist service. This patient was admitted for severe pneumonia, and spent several days in the intensive care unit. She currently requires BiPAP in [facility]. She has baseline shortness of breath. She also has a history of COPD and atrial fibrillation. She is morbidly obese. At present she has mild shortness of breath. She denies any chest pain, headache, dizziness, orthostasis, nausea, vomiting, abdominal pain, melena, nausea, hematemesis, blurry vision. Past Medical History Cardiac Medical History: Reports: Atrial Fibrillation, Hypertension Denies: Myocardial Infarction Pulmonary Medical History: Reports: Chronic Obstructive Pulmonary Disease (COPD), Sleep Apnea Denies: Asthma Neurological Medical History: Denies: Seizures GI Medical History: Reports: Hiatal Hernia Denies: Hepatitis Psychiatric Medical History: Denies: Depression Hematology: Denies: Anemia, Sickle Cell Disease Past Surgical History Past Surgical History: Reports: Herniorrhaphy, Hysterectomy Denies: Amputation, Mastectomy, Pacemaker Social History Lives with: Family Smoking Status: Former Smoker Frequency of Alcohol Use: Occasional Hx Recreational Drug Use: No Drugs: None Hx Prescription Drug Abuse: No - Advance Directive Resuscitation Status: Full Code Family History Family History: Reviewed & Not Pertinent, Malignancy Parental Family History Reviewed: Yes Children Family History Reviewed: Yes Sibling(s) Family History Reviewed.: Yes Medication/Allergy Home Medications: Omeprazole 20 mg PO QPM 08/05/19 Sotalol HCl [Betapace] 120 mg PO BID 08/05/19 Rivaroxaban [Xarelto 10 mg Tablet] 20 mg PO WSUPPER tablet 08/20/19 Brimonidine Tartrate/Timolol [Combigan 0.2%-0.5% Eye Drops] 1 drop OU BID 11/10/19 Diltiazem HCl [Cardizem 30 mg Tablet] 30 mg PO Q12 11/10/19 Tramadol HCl [Ultram 50 mg Tablet] 50 mg PO BIDP PRN 11/10/19 Oxycodone HCl/Acetaminophen [Percocet 5-325 mg Tablet] 1 tab PO BIDP PRN 05/13/20 Trimethoprim [Trimpex 100 Mg Tablet] 100 mg PO DAILY 05/13/20 Allergies/Adverse Reactions: Sulfa (Sulfonamide Antibiotics) Allergy (Verified 08/05/19 07:53) RASH Review of Systems Constitutional: PRESENT: fatigue. ABSENT: anorexia, chills, fever(s), headache(s), night sweats Eyes: ABSENT: visual disturbances Ears: ABSENT: hearing changes Nose, Mouth, and Throat: ABSENT: headache(s) Cardiovascular: PRESENT: palpitations. ABSENT: chest pain Respiratory: PRESENT: dyspnea Gastrointestinal: ABSENT: abdominal pain, bloating Genitourinary: ABSENT: dysuria Musculoskeletal: ABSENT: back pain Integumentary: ABSENT: pruritus, rash Neurological: ABSENT: confusion, convulsions, dizziness Psychiatric: ABSENT: anxiety, depression Endocrine: ABSENT: cold intolerance, heat intolerance Hematologic/Lymphatic: ABSENT: easy bleeding, easy bruising Physical Exam Vital Signs: Temp Pulse Resp BP Pulse Ox 97.9 F 114 H 18 123/51 L 95 05/19/20 20:25 05/19/20 20:25 05/19/20 20:25 05/19/20 20:25 05/19/20 20:25 Pulse Oximeter Nocturnal Start: 05/17/20 16:50 Freq: RTQ4 Status: Complete Protocol: Document 05/18/20 05:07 [facility] (Rec: 05/18/20 05:55 [facility] [id number]) Nocturnal Pulse Oximetry Equipment Usage Equipment Discontinued Continuous SpO2 Machine # N-2 Intake & Output 05/18/20 05/19/20 05/20/20 06:59 06:59 06:59 Intake Total 1145 1187 1530 Output Total 1600 8080 615 Balance -455 1464 915 Weight 118.3 kg 117.1 kg 117.1 kg General appearance: PRESENT: obese Head exam: PRESENT: atraumatic, normocephalic Eye exam: PRESENT: EOMI, PERRLA. ABSENT: scleral icterus Mouth exam: PRESENT: moist, neck supple Neck exam: ABSENT: meningismus, tenderness, thyromegaly, tracheal deviation Respiratory exam: PRESENT: tachypnea - mild, unlabored Cardiovascular exam: ABSENT: tachycardia GI/Abdominal exam: PRESENT: soft, other - obese. ABSENT: tenderness Rectal exam: PRESENT: deferred Extremities exam: ABSENT: clubbing Musculoskeletal exam: ABSENT: deformity Neurological exam: PRESENT: alert, awake, oriented to person, oriented to place, oriented to time, oriented to situation, CN II-XII grossly intact Psychiatric exam: ABSENT: agitated, anxious, depressed Focused psych exam: ABSENT: delusional Skin exam: ABSENT: cyanosis, erythema, jaundice Results Laboratory Results: 05/18/20 05:47 05/18/20 11:22 05/19/20 14:49 Total Protein 5.6 L 05/13/20 02:15 Troponin I < 0.012 Impressions: Chest X-Ray 05/16/20 00:00 IMPRESSION: Right-sided pleural effusion demonstrates increased volume on today's examination. Otherwise stable radiographic appearance of the chest. Chest CT 05/18/20 00:00 IMPRESSION: Right pleural effusion and right lower lobe collapse. No fibrosis. Chest Ultrasound 05/19/20 00:00 IMPRESSION: Loculated small right pleural effusion. Abdomen/Pelvis CT 05/19/20 13:00 IMPRESSION: Multiloculated right pleural effusion with right lower lobe airspace disease. Rim enhancing loculation of fluid in the posterior right c ostophrenic sulcus abutting the posterior right lobe liver Assessment & Plan - Diagnosis (1) Community acquired pneumonia Qualifiers: Laterality: right Lung location: lower lobe of lung Qualified Code(s): J18.9 - Pneumonia, unspecified organism Is this a current diagnosis for this admission?: Yes (2) Loculated pleural effusion Is this a current diagnosis for this admission?: Yes (3) Obesity Qualifiers: Obesity type: unspecified obesity type Obesity classification: adult class 2 (BMI 35 - 39.9) Serious obesity comorbidity presence: with serious comorbidity Body mass index: BMI 39.0-39.9 Qualified Code(s): E66.01 - Morbid (severe) obesity due to excess calories; Z68.39 - Body mass index (BMI) 39.0-39.9, adult Is this a current diagnosis for this admission?: Yes - Plan Summary Plan Summary: 70-year-old female with a developing, loculated pleural effusion. I have reviewed the patient's CT scan. I am unsure whether tube thoracostomy will be entirely successful, due to the amount of loculations present in the patient's right chest. Patient may require surgical intervention including VATS and/or thoracotomy. Due to her chronic medical conditions, she is not a very good candidate for surgical intervention at this institution. I have discussed this with the patient. She would like to try tube thoracostomy here at [facility] (with a possibility of needing transfer at a later date if the tube thoracostomy is unsuccessful). I have discussed this with her at length. She is clear regarding her decision. We will plan for tube thoracostomy tomorrow with some sedation. Afterwards, we will add Cathflo in an effort to break up the loculations. Surgery will follow.
[2020-05-20] MEDS: TRAMADOL HCL 50 MG TABLET PO PRN (05:46)
[2020-05-20] MEDS: PANTOPRAZOLE SODIUM 20 MG TABLET.DR PO SCH (05:46)
[2020-05-20 05:48] LABS: ANION GAP 5 (5-19); BLOOD UREA NITROGEN 5 mg/dL (7-20); CALCIUM 8.7 mg/dL (8.4-10.2); CARBON DIOXIDE 34 mmol/L (22-30); CHLORIDE 98 mmol/L (98-107); GLUCOSE 116 mg/dL (75-110); POTASSIUM 4.3 mmol/L (3.6-5.0)
[2020-05-20] MEDS: DILTIAZEM HCL/D5W 125 MG/125 ML RTUINJ IV PRN ×2 (07:38→23:53)
[2020-05-20] MEDS: SOTALOL HCL 80 MG TABLET PO SCH ×2 (10:07→21:54)
[2020-05-20] MEDS: FLUTICASONE/VILANTEROL 100-25 MCG/DOSE IH SCH (10:07)
[2020-05-20] MEDS: MAGNESIUM OXIDE 400 MG TABLET PO SCH ×2 (10:07→17:15)
[2020-05-20] MEDS: DOCUSATE SODIUM 100 MG CAPSULE PO SCH (10:07)
[2020-05-20] MEDS: ASCORBIC ACID 500 MG TABLET PO SCH ×2 (10:07→17:15)
[2020-05-20] MEDS: TIMOLOL MALEATE 0.5% OPH SOLN 5 ML OU SCH ×2 (10:08→22:05)
[2020-05-20] MEDS: AMOXICILLIN TR/POT CLAVULANATE 875-125 MG TAB PO SCH ×2 (10:09→21:55)
[2020-05-20] MEDS: BRIMONIDINE TARTRATE 0.2% OPH SOLN 5 ML OU SCH ×2 (10:10→22:06)
[2020-05-20] MEDS: NYSTATIN TOPICAL POWDER 15 GM TP SCH (10:12)
[2020-05-20] MEDS: ONDANSETRON HCL INJ/PF 4 MG/2 ML SDV IV PRN ×2 (12:17→20:17)
[2020-05-20] MEDS ORDERED: DORNASE ALFA NEB 2.5 MG/2.5 ML AMPUL IPL PRN (13:29)
[2020-05-20] MEDS ORDERED: ALTEPLASE INJ 2 MG VIAL (CATH CLEARANCE) IPL PRN (13:31)
[2020-05-20] MEDS ORDERED: FENTANYL CITRATE INJ/PF 100 MCG/2 ML AMPUL ONE (13:34)
[2020-05-20] MEDS ORDERED: MIDAZOLAM 2 MG/2 ML INJ ONE ×2 (13:35→13:59)
[2020-05-20] MEDS ORDERED: LIDOCAINE 2% INJ (20 MG/ML) 20 ML MDV ONE (13:51)
--- NOTE | 2020-05-20 14:44 | Operative Report ---
Operative Report DATE OF SURGERY: 05/20/20 PREOPERATIVE DIAGNOSIS: Parapneumonic effusion with loculation POSTOPERATIVE DIAGNOSIS: Same OPERATION: 1. Placement of right 36 German thoracostomy tube. 2. Instillation of 100 cc of thrombolytic dilution into right pleural space. 3. Interpretation of portable upright chest x-ray. 4. Bedside ultrasonography of the right chest SURGEON: NAOMI HOPE ANESTHESIA: Local TISSUE REMOVED OR ALTERED: Fluid from right chest COMPLICATIONS: None ESTIMATED BLOOD LOSS: Minimal INTRAOPERATIVE FINDINGS: See below PROCEDURE: The patient was brought from the floor to the PACU where she was hooked to monitoring devices and placed in the left lateral semi-decubitus position. Surgical plan surgical timeout were conducted. Dr. Hope performed focused ultrasound of the right chest wall with a variable frequency linear transducer. Loculated fluid was identified in the right pleural space, and the corresponding position on the patient's posterior chest wall was marked with a marker. Appropriate level of conscious sedation was induced with 2 mg of Versed initially had 2 more milligrams of Versed IV given during the procedure. Patient was on nasal cannula oxygen, saturating in the mid 90s. The posterior lateral chest was then prepped and draped in sterile fashion with Betadine. Appropriate site on the skin along the posterior chest wall, mid scapular line was anesthetized 1% plain lidocaine. Deeper tissue anesthetized as well as the intercostal space. A 2+ centimeter transverse incision was made with a 15 blade, subcutaneous tissue and intercostal muscles spread with Milagros clamp. Milagros clamp was used to enter the pleural space and there was immediate evacuation of fluid. The intercostal hole was spread a little further to admit the patient's index finger. Loculations were broken up medial laterally and superiorly. Inferiorly and deep a large firm surface was appreciated and this was believed to be the right hemidiaphragm. We now brought onto the field a 36 German chest tube, trimmed approximately 3- 1/2 cm off of the distal and and advance the tube into the right pleural space. Chest tube was secured to the skin with pursestring using 2-0 sutures. Xeroform and 4 x 4's and tape applied. The chest tube was hooked to Pleur-evac waterseal and drain approximately 120 cc of serosanguineous fluid. Portable upright chest x-ray showed the chest tube to be in the right pleural space with evacuation of some pleural fluid. There was no obvious pneumothorax. We now brought onto the field appropriate materials for pleural space thrombolysis. 6 mg of alteplase and 5 mg of Pulmozyme were mixed in a solution of 100 cc of sterile saline. This solution was then placed in a sterile bulb syringe. The chest tube was disconnected from the drainage tubing, and close to 100 cc of thrombolytic material was instilled to the right pleural space and a chest tube clamped applied to the chest tube several centimeters distal to its insertion site at the skin level. Patient tolerated this well and the chest tube was left clamped during diameter of the patient stay in the recovery room. Her saturations remained in the mid to low 90s. She had chronic shortness of breath with significant change prior to the procedure. She was taken up to the floor with a chest tube clamped in stable condition. Instructions provided to the nurse to release the chest tube in 4 hours as planned, or sooner if patient develops respiratory distress.
[2020-05-20] MEDS: LEVALBUTEROL HCL NEB 1.25 MG/3 ML AMPUL NEB PRN (15:01)
--- NOTE | 2020-05-20 15:15 | PDOC PROGRESS REPORT ---
Subjective Progress Note for:: 05/20/20 Subjective:: Mild shortness of breath. Pain in abdomen has improved. Reason For Visit: COVID 19,PNEUMONIA Physical Exam Vital Signs: Temp Pulse Resp BP Pulse Ox 97.8 F 83 16 109/58 L 95 05/20/20 11:51 05/20/20 11:51 05/20/20 11:51 05/20/20 13:00 05/20/20 11:51 Pulse Oximeter Nocturnal Start: 05/17/20 16:50 Freq: RTQ4 Status: Complete Protocol: Document 05/18/20 05:07 [facility] (Rec: 05/18/20 05:55 [facility] [id number]) Nocturnal Pulse Oximetry Equipment Usage Equipment Discontinued Continuous SpO2 Machine # N-2 Intake & Output 05/19/20 05/20/20 05/21/20 06:59 06:59 06:59 Intake Total 1187 1930 495 Output Total 2650 965 300 Balance -1463 965 195 Weight 117.1 kg 117.8 kg General appearance: PRESENT: no acute distress, cooperative Neck exam: ABSENT: JVD Respiratory exam: PRESENT: clear to auscultation aroldo, symmetrical, unlabored. ABSENT: tachypnea, wheezes Cardiovascular exam: PRESENT: RRR, +S1, +S2. ABSENT: tachycardia GI/Abdominal exam: PRESENT: soft, tenderness. ABSENT: distended, firm, guarding, rebound, rigid Neurological exam: PRESENT: alert, awake, oriented to person, oriented to place, oriented to time Psychiatric exam: ABSENT: agitated, anxious Results Laboratory Results: 05/20/20 05:14 05/20/20 05:14 05/19/20 05/20/20 05/20/20 14:49 05:14 05:14 WBC 9.3 RBC 4.15 Hgb 11.7 L Hct 36.0 MCV 87 MCH 28.3 MCHC 32.6 RDW 18.2 H Plt Count 547 H Sodium 137.1 Potassium 4.3 Chloride 98 Carbon Dioxide 34 H Anion Gap 5 BUN 5 L Creatinine 0.30 L Est GFR ( Amer) > 60 Glucose 116 H Calcium 8.7 Total Protein 5.6 L 05/13/20 02:15 Troponin I < 0.012 Impressions: Chest CT 05/18/20 00:00 IMPRESSION: Right pleural effusion and right lower lobe collapse. No fibrosis. Chest Ultrasound 05/19/20 00:00 IMPRESSION: Loculated small right pleural effusion. Abdomen/Pelvis CT 05/19/20 13:00 IMPRESSION: Multiloculated right pleural effusion with right lower lobe airspace disease. Rim enhancing loculation of fluid in the posterior right costophrenic sulcus abutting the posterior right lobe liver Assessment and Plan - Diagnosis (1) Acute respiratory failure with hypoxia Is this a current diagnosis for this admission?: Yes Plan: Likely secondary to pneumonia, compressive atelectasis and loculated pleural effusion. Venous blood gas showed no evidence of CO2 retention. Patient is currently on 2 L nasal cannula. We will wean as tolerated. (2) Loculated pleural effusion Is this a current diagnosis for this admission?: Yes Plan: CT shows multiple loculations and right pleura. Likely complicated parapneumonic. Small to moderate in size but with volume loss and as such patient will need to have this drained to avoid lung trapping. Surgery placed chest tube with TPA and dornase augusto administration 05/20/2020. Xarelto is on hold (3) Abdominal visceral abscess Is this a current diagnosis for this admission?: Yes Plan: Abdominal CT did also supervisor picking crew a small [id number] rim-enhancing lesion which could represent small abscess noted next to the right liver lobe. I discussed with the radiologist who confirmed that this lesion is likely not in the right pleura and likely in the abdomen but is quite small and may or may not represent an actual abscess. After discussion, plan is to first drain the loculated pleural effusions and continue Augmentin and then reimage the abdomen to see if any progression of this questionable abscess. Fevers remain resolved. (4) Community acquired pneumonia Qualifiers: Laterality: right Lung location: lower lobe of lung Qualified Code(s): J18.9 - Pneumonia, unspecified organism Is this a current diagnosis for this admission?: Yes Plan: Fevers r and leukocytosis have resolved. Completed 5 days of azithromycin and ceftriaxone. Currently on Augmentin. (5) Permanent atrial fibrillation Is this a current diagnosis for this admission?: Yes Plan: Heart rate improved. Still on sotalol and 7.[address] Morales is follo wing. Xarelto is on hold during chest tube placement and localized TPA administration to pleura. Monitor on telemetry. (6) Hemochromatosis Qualifiers: Hemochromatosis type: unspecified Qualified Code(s): E83.119 - Hemochromatosis, unspecified Is this a current diagnosis for this admission?: Yes Plan: Patient has history of hemochromatosis and does have hepatomegaly. However currently abdominal CT shows significant improvement in fatty liver disease and iron saturation is actually not high at this point. (7) Osteoarthritis of knees, bilateral Qualifiers: Osteoarthritis type: primary Qualified Code(s): M17.0 - Bilateral primary osteoarthritis of knee Is this a current diagnosis for this admission?: Yes Plan: Patient has significant ambulatory dysfunction. She admits to history of [id number] osteoarthritis in her knees which limits ambulation. Gets around with a walker at home but only typically able to ambulate very short distances within the apartment. Her obesity is contributing to this problem. She is more amenable to SNF at this point if she continues not to show much improvement by the time of discharge. (8) Obesity (BMI 30-39.9) Is this a current diagnosis for this admission?: Yes - Time Time Spent with patient: 15-24 minutes Anticipated Discharge Disposition: [facility] Anticipated Discharge Timeframe: >72hrs
[2020-05-20] MEDS ORDERED: TRAMADOL HCL 50 MG TABLET PO PRN (15:44)
--- NOTE | 2020-05-20 15:46 | RADIOLOGY REPORT (SQ) ---
EXAM DESCRIPTION: CHEST SINGLE VIEW IMAGES COMPLETED DATE/TIME: 05/20/2020 2:24 pm REASON FOR STUDY: POST CHEST TUBE INSERTION COMPARISON: 05/16/2020. EXAM PARAMETERS: NUMBER OF VIEWS: One view. TECHNIQUE: Single frontal radiographic view of the chest acquired. RADIATION DOSE: NA LIMITATIONS: None. FINDINGS: LUNGS AND PLEURA: Interval placement of a right chest tube. Small apical pneumothorax, le ss than 10%. Patchy airspace disease in the right lung and right pleural effusion. Left lung clear. MEDIASTINUM AND HILAR STRUCTURES: No masses. Contour normal. HEART AND VASCULAR STRUCTURES: Heart normal in size. Normal vasculature. BONES: No acute findings. HARDWARE: None in the chest. OTHER: No other significant finding. IMPRESSION: INTERVAL PLACEMENT OF A RIGHT CHEST TUBE. SMALL APICAL PNEUMOTHORAX, LESS THAN 10%. OT HERWISE NO SIGNIFICANT CHANGE. TECHNICAL DOCUMENTATION: JOB ID: [id number] 2010 [employer]- All Rights Reserved Reading location - IP/workstation name: [email or web address]
[2020-05-20] MEDS ORDERED: OXYCODONE-ACETAMINOPHEN 5-325 MG TABLET PO PRN (16:35)
[2020-05-20 18:22] LABS: FLUID COLOR RED; FLUID SOURCE LUNG; FLUID TYPE PLEURAL
[2020-05-20 18:23] LABS: FLUID APPEARANCE CLOUDY; FLUID VISCOSITY LIQUID
[2020-05-20] MEDS ORDERED: MORPHINE SULFATE 10 MG/ML INJ ONE (21:50)
[2020-05-20] MEDS: MELATONIN 5 MG TABLET PO SCH (21:54)
[2020-05-20] MEDS ORDERED: MORPHINE SULFATE 10 MG/ML INJ IV ONE (22:00)
--- NOTE | 2020-05-20 22:04 | Progress Note ---
Provider Note Provider Note: CARDIOLOGY PROGRESS NOTE by Dr. Elodia Ferreira on 05/20/2020. SUBJECTIVE: The patient still continues to be short of breath. She is for chest tube insertion later today. At present she is converted to sinus rhythm. There is no anginal symptoms. There is no ventricular arrhythmia seen on the monitor. There is no TIA CVA symptoms. The patient Xarelto is continued to be held. PHYSICAL EXAMINATION: The patient is morbidly obese. At present in no acute distress. Selected Entries 05/20/20 11:51 Temperature 97.8 F Temperature Oral Source Pulse Rate 83 Respiratory 16 Rate Blood Pressure 106/51 L Blood Pressure 69 Mean BP Location Left Arm BP Position Supine O2 Sat by Pulse 95 Oximetry Oxygen Delivery Room Air Method HEAD: Is atraumatic normocephalic. PUPILS are equal round regular reactive to light accommodation extraocular movements are normal. There is no conjunctival pallor. There is no scleral icterus. ENT is negative note patient is on BiPAP. NECK: Supple. There is no JVD. Carotids are equal there is no bruits. There is no lymphadenopathy. There is no goiter. There is no accessory muscle respiration use. Trachea central. LUNGS: Shows a few scattered rhonchi. There is dry crackles in the right base, above an area of dullness in absent bilateral breath sounds in the right base.. There is no rales of CHF. HEART: S1-S2 is heard. S1 is of variable intensity. The patient is tachycardic. There is systolic murmur left sternal border and the apex there is no rub. ABDOMEN: Is obese. Nontender there is no hepatosplenomegaly. Bowel sounds are well heard. There is no tender areas masses. EXTREMITIES: Femorals are deep. There is no femoral bruits. Leg pulses are well felt. There is no pedal edema. There is no DVT or cellulitis. There is no cyanosis or clubbing. CIRCUS ARTIST: The patient is drowsy but without any focal deficits. PSYCHIATRIC: In spite of her drowsiness the patient judgment insight are intact and affect is normal. Labs- All tests 24 hr 05/19/20 05/20/20 05/20/20 15:55 05:14 05:14 WBC 9.3 RBC 4.15 Hgb 11.7 L Hct 36.0 MCV 87 MCH 28.3 MCHC 32.6 RDW 18.2 H Plt Count 547 H Sodium 137.1 Potassium 4.3 Chloride 98 Carbon Dioxide 34 H Anion Gap 5 BUN 5 L Creatinine 0.30 L Est GFR ( Amer) > 60 Est GFR (MDRD) Non-Af > 60 Glucose 116 H Calcium 8.7 Fluid Type PLEURAL Fluid Source LUNG Fluid Color RED Fluid Appearance CLOUDY Fluid Viscosity LIQUID Fluid WBC 111 Fluid RBC 333402 Fluid Seg Neutrophils 60 Fluid Lymphocytes 40 Chest X-Ray 05/13/20 03:03 IMPRESSION: Small right effusion with minimal adjacent airspace opacity copyright 2010 [employer]- All Rights Reserved Chest X-Ray 05/16/20 00:00 IMPRESSION: Right-sided pleural effusion demonstrates increased volume on today's examination. Otherwise stable radiographic appearance of the chest. Chest CT 05/18/20 00:00 IMPRESSION: Right pleural effusion and right lower lobe collapse. No fibrosis. Chest Ultrasound 05/19/20 00:00 IMPRESSION: Loculated small right pleural effusion. Abdomen/Pelvis CT 05/19/20 13:00 IMPRESSION: Multiloculated right pleural effusion with right lower lobe airspace disease. Rim enhancing loculation of fluid in the posterior right costophrenic sulcus abutting the posterior right lobe liver iMPRESSION/RECOMMENDATION: 1. Paroxysmal patient back in sinus rhythm. Atrial fibrillation with rapid ventricular response. Continue sotalol. The patient was given a dose of digoxin 0.25 mg IV push. This did not bring the rate down. Hence we will start the patient on Cardizem drip. The patient was started on Cardizem drip at 2.5 mg/h and increased subsequently to 5 mg/h. There is no TIA CVA symptoms. Patient is tolerating a higher dose of sotalol without proarrhythmia. And there is no QTc prolongation. 2. Pneumonia: Continue antibiotics continue BiPAP as needed and oxygen supplementation. 3. Right pleural effusion: Ultrasound of the right thorax and CT scan of the thorax shows there is mild to moderate loculated pleural effusion. The patient is for right shoulder abscess chest tube insertion later by Dr. Hope. 4 history of hypertension: At present blood pressure on the lower side. 5. History of hemochromatosis: At present does not seem to be any acute problems from this. The patient CT does not show enlarged liver. 6. COVID test code19 test came back negative 7. Obesity. Medications reviewed. Medications added and adjusted. Medical decision making is of high complexity. Medical regimen and management plan discussed with attending.The case. 40 minutes spent on this patient more than 50% of time spent in direct patient care. Will follow.
[2020-05-21] MEDS: OXYCODONE-ACETAMINOPHEN 5-325 MG TABLET PO PRN ×3 (01:24→19:31)
[2020-05-21] MEDS ORDERED: BISACODYL 5 MG TABEC PO PRN (03:59)
[2020-05-21] MEDS: PANTOPRAZOLE SODIUM 20 MG TABLET.DR PO SCH (05:38)
[2020-05-21] MEDS ORDERED: MORPHINE SULFATE 10 MG/ML INJ ONE (06:42)
[2020-05-21] MEDS ORDERED: LIDOCAINE 1% INJ-PF (10 MG/ML) 30 ML SDV ONE (07:13)
--- NOTE | 2020-05-21 07:49 | RADIOLOGY REPORT (SQ) ---
EXAM DESCRIPTION: XR CHEST 2 VIEWS COMPLETED DATE/TME: 05/21/2020 00:00 CLINICAL HISTORY: 70 years Female, subcutaneous emphesyma, chest tube malfuction COMPARISON: One day prior. NUMBER OF VIEWS/TECHNIQUE: 2, PA/Lateral FINDINGS: Right chest tube with proximal port at the level of the chest wall; consider adjustment replacement. Moderate right hydropneumothorax. Pleural separation 2.1 cm. Stable. Soft tissue emphysema of the right chest wall. Moderate opacity at the medial right upper lobe. Mild interstitial markings at the periphery of the left mid lung field. Mildly enlarged cardiac silhouette size. Diffuse idiopathic skeletal hyperostosis.. IMPRESSION: 1. Right chest tube with proximal port at the level of the chest wall; consider adjustment replacement. 2. Moderate right hydropneumothorax persists.
[2020-05-21] MEDS ORDERED: MORPHINE SULFATE 10 MG/ML INJ IV ONE (08:00)
[2020-05-21] MEDS ORDERED: LIDOCAINE 1% INJ-PF (10 MG/ML) 30 ML SDV INJ PRN (08:21)
[2020-05-21] MEDS: ASCORBIC ACID 500 MG TABLET PO SCH ×2 (09:44→18:00)
[2020-05-21] MEDS: MAGNESIUM OXIDE 400 MG TABLET PO SCH ×2 (09:45→18:00)
[2020-05-21] MEDS: DOCUSATE SODIUM 100 MG CAPSULE PO SCH ×3 (09:45→18:00)
[2020-05-21] MEDS: SOTALOL HCL 80 MG TABLET PO SCH ×2 (09:45→22:55)
[2020-05-21] MEDS: MORPHINE SULFATE 10 MG/ML INJ IV PRN (09:50)
[2020-05-21] MEDS: TIMOLOL MALEATE 0.5% OPH SOLN 5 ML OU SCH ×2 (10:26→23:00)
[2020-05-21] MEDS: BRIMONIDINE TARTRATE 0.2% OPH SOLN 5 ML OU SCH ×2 (10:27→23:00)
[2020-05-21] MEDS: AMOXICILLIN TR/POT CLAVULANATE 875-125 MG TAB PO SCH ×2 (10:27→22:59)
[2020-05-21] MEDS: FLUTICASONE/VILANTEROL 100-25 MCG/DOSE IH SCH (10:27)
--- NOTE | 2020-05-21 10:30 | Operative Report ---
Operative Report DATE OF SURGERY: 05/21/20 PREOPERATIVE DIAGNOSIS: 1. Kinked right thoracostomy tube malfunction. 2. Ri ght parapneumonic pleural effusion POSTOPERATIVE DIAGNOSIS: Same OPERATION: 1. Removal of existing 36 Martiniquais chest tube. 2. Replacement with right angle 32 Martiniquais chest tube SURGEON: NAOMI CALLEJAS ANESTHESIA: Moderate Sedation TISSUE REMOVED OR ALTERED: None COMPLICATIONS: None ESTIMATED BLOOD LOSS: Minimal INTRAOPERATIVE FINDINGS: See below PROCEDURE: Indications for procedure: The patient is a 70-year-old white female, debilitated, with obesity, and right parapneumonic effusion. Yesterday patient underwent right thoracostomy tube placement with 36 Martiniquais straight chest tube, and instillation of thrombolytic therapy. Initially the patient did well, however early this morning patient developed chest pain, shortness of breath and a chest x-ray showed expanding pneumothorax, and slight extraction of chest tube. Patient was found on physical exam to have a kinked chest tube. Due to the posterior position of this chest tube, its large caliber, and no memory in the tube, I felt that replacement was indicated. Unfortunately there were no angled chest tubes at [facility], so we had to wait for 1 to come from [facility]. Summary of procedure The patient was placed in semirecumbent position right side up. Existing chest tube site dressing removed, skin around chest tube prepped with Betadine. Surgical plan and surgical timeout were conducted. Appropriate level of sedation was induced with morphine. The skin around the chest tube was anesthetized 1% plain lidocaine. Existing chest tube removed, and a 32 Martiniquais [place] chest tube was inserted into the identical hole under sterile conditions. There was fluctuation of the waterseal chamber after chest tube hooked to Pleur-evac. Patient coughed satisfactorily and confirmation of fluctuation persisted. We felt the chest tube was in appropriate position. The chest tube was secured to the skin with 2-0 silk suture, with pursestring configuration. Sterile dressing with Adaptic, 4 x 4's and tape applied. Chest tube secured to Pleur-evac tubing satisfactorily. Patient placed in the supine position, and pulmonary toilet initiated. She will have a chest x-ray repeated at bedside portable upright in approximately 1 hour. Patient tolerated procedure well. There was no hemodynamic instability and no desaturations.
[2020-05-21] MEDS: MAGNESIUM HYDROXIDE SUSP 30 ML UDCUP PO SCH (10:46)
[2020-05-21] MEDS: LEVALBUTEROL HCL NEB 1.25 MG/3 ML AMPUL NEB PRN (11:10)
--- NOTE | 2020-05-21 12:21 | RADIOLOGY REPORT (SQ) ---
EXAM DESCRIPTION: CHEST SINGLE VIEW IMAGES COMPLETED DATE/TIME: 05/21/2020 11:46 am REASON FOR STUDY: Interval change right lung COMPARISON: Earlier exam at 0730 hours TECHNIQUE: Single frontal radiographic view of the chest acquired. NUMBER OF VIEWS: One view. LIMITATIONS: None. FINDINGS: LUNGS AND PLEURA: Similar right pneumothorax. Similar right basilar consolidation - pleur al effusion. Minimal subsegmental atelectasis in the left lung base. MEDIASTINUM AND HILAR STRUCTURES: Stable. HEART AND VASCULAR STRUCTURES: Stable. BONES: No acute findings. HARDWARE: Right chest tube has withdrawn with the tip now at the outer edge of the rib margin. OTHER: No other significant finding. IMPRESSION: Right chest tube has withdrawn with the tip now at the outer edge of the rib margin. Sim ilar right pneumothorax. Similar right basilar consolidation - pleural effusion. COMMENT: The findings were sent to the Radiology Results Communication Center at 12:14 on 05/21/2020 to be communicated to a licensed caregiver. TECHNICAL DOCUMENTATION: JOB ID: [id number] [place]-72 2010 [employer]- All Rights Reserved Reading location - IP/workstation name: [email or web address]
[2020-05-21] MEDS ORDERED: FENTANYL CITRATE INJ/PF 100 MCG/2 ML AMPUL ONE (13:53)
[2020-05-21] MEDS ORDERED: LIDOCAINE 2% INJ-PF (20 MG/ML) 10 ML AMPUL ONE (13:53)
[2020-05-21] MEDS ORDERED: ONDANSETRON HCL INJ/PF 4 MG/2 ML SDV ONE (13:53)
[2020-05-21] MEDS ORDERED: MIDAZOLAM 2 MG/2 ML INJ ONE (13:53)
[2020-05-21] MEDS ORDERED: PROPOFOL INJ 200 MG/20 ML VIAL IV ONE (13:54)
[2020-05-21] MEDS ORDERED: LIDOCAINE 1%/EPINEPHRINE INJ 20 ML VIAL ONE ×2 (14:03→14:27)
[2020-05-21] MEDS ORDERED: MORPHINE SULFATE 10 MG/ML INJ IV PRN (14:45)
[2020-05-21] MEDS ORDERED: OXYCODONE-ACETAMINOPHEN 5-325 MG TABLET PO PRN ×2 (14:45)
[2020-05-21] MEDS ORDERED: FENTANYL CITRATE INJ/PF 100 MCG/2 ML AMPUL IV PRN ×3 (14:45)
[2020-05-21] MEDS ORDERED: DIPHENHYDRAMINE HCL 50 MG/ML VIAL IV PRN (14:45)
[2020-05-21] MEDS ORDERED: PROMETHAZINE HCL INJ 25 MG/1 ML VIAL IV PRN ×2 (14:45)
[2020-05-21] MEDS ORDERED: MEPERIDINE HCL/PF INJ 25 MG/1 ML DISP.SYRIN IV PRN (14:45)
--- NOTE | 2020-05-21 15:05 | Operative Report ---
Operative Report DATE OF SURGERY: 05/21/20 PREOPERATIVE DIAGNOSIS: 1. Persistent pneumothorax right chest. 2. Resolving right pleural effusion. 3. Dislodged right posterior angled chest tube POSTOPERATIVE DIAGNOSIS: Same OPERATION: 1. Placement of right anterior-apical 28 [place] Leonean thoracostomy tube. 2. Removal of dislodged right posterior angled 32 [place] Leone[place] chest tube. 3. Interpretation of intraoperative fluoroscopy. 4. Interpretation of semi- upright post procedure chest x-ray SURGEON: NAOMI CALLEJAS ANESTHESIA: LMAC TISSUE REMOVED OR ALTERED: None COMPLICATIONS: None ESTIMATED BLOOD LOSS: Minimal INTRAOPERATIVE FINDINGS: See below PROCEDURE: Patient was taken the preoperative to the main operating room where LMAC anesthesia was induced. She was placed in the semi-recumbent, supine position, arms tucked at her sides. Surgical plan and surgical timeout were conducted. Anterior chest was prepped and draped sterile fashion with the breast hanging caudad. A suitable site for placement of the chest tube was chosen on the anterior chest approximately ICS 8. Skin was anesthetized 1% plain lidocaine, a transverse incision was made with a 15 blade, and a Milagros clamp used to separate the subcutaneous tissue and intercostal muscles. Now a 28 [place] Leonean chest tube was secured to the end of the Milagros clamp, and advanced into the right pleural space with the immediate gush of air. The chest tube was advanced all the way to the near apex of the right thoracic space, with the skin edge approximately 10-11 cm from the sentinel hole. Fluoroscopic examination demonstrated the tip of the S tube to be approaching the apex of the right thoracic cavity, with expansion of the lung at least in the AP view. Chest tube is secured to the skin with two 2-0 silk sutures. There was no evidence of subcutaneous emphysema. Chest tube hooked to Pleur-evac with generous fluctuation of the waterseal chamber but no obvious air leaking. The chest tube Pleur-evac was hooked to suction. The patient was now rolled in the left lateral decubitus position right side up. The previously placed 32 [place] Leonean angled chest tube was removed under sterile conditions, exit site prepped with Betadine anesthetized with 1% plain lidocaine and closed transversely with four 3-0 Ethilon sutures. There was no air escaping from this hole prior to closure. Wound dressed with 4 x 4's and honeycomb dressing. Patient was placed supine position, chest tube may in a good position by fluoroscopic reexamination. She was taken to recovery in stable condition. Portable semi-upright chest x-ray showed no significant right pneumothorax, chest tube in good position. Patient will eventually be taken up to the floor in stable condition.
--- NOTE | 2020-05-21 15:33 | PDOC PROGRESS REPORT ---
Subjective Progress Note for:: 05/21/20 Subjective:: Patient developed pneumothorax after chest tube which increased in size today with some subcutaneous emphysema. Patient does not feel short of breath but is experiencing pain at this site. Reason For Visit: COVID 19,PNEUMONIA Physical Exam Vital Signs: Temp Pulse Resp BP Pulse Ox 98.3 F 80 14 109/39 L 98 05/21/20 14:54 05/21/20 14:54 05/21/20 14:54 05/21/20 14:54 05/21/20 14:54 Pulse Oximeter Nocturnal Start: 05/17/20 16:50 Freq: RTQ4 Status: Complete Protocol: Document 05/18/20 05:07 [facility] (Rec: 05/18/20 05:55 [facility] [id number]) Nocturnal Pulse Oximetry Equipment Usage Equipment Discontinued Continuous SpO2 Machine # [id number] Intake & Output 05/20/20 05/21/20 05/22/20 06:59 06:59 06:59 Intake Total 1930 717 100 Output Total 965 710 200 Balance 965 7 -100 Weight 117.8 kg 119 kg General appearance: PRESENT: no acute distress, cooperative Neck exam: ABSENT: JVD Respiratory exam: PRESENT: crackles - Right base, symmetrical, unlabored. ABSENT: tachypnea, wheezes Cardiovascular exam: PRESENT: RRR, +S1, +S2. ABSENT: tachycardia GI/Abdominal exam: PRESENT: soft. ABSENT: rebound, rigid, tenderness Neurological exam: PRESENT: alert, awake, oriented to person, oriented to place, oriented to time Results Laboratory Results: 05/20/20 05:14 05/20/20 05:14 05/19/20 15:55 Fluid Type PLEURAL Fluid Source LUNG Fluid Color RED Fluid Appearance CLOUDY Fluid Viscosity LIQUID Fluid WBC 111 Fluid RBC [id number] 05/13/20 02:15 Troponin I < 0.012 Impressions: Chest CT 05/18/20 00:00 IMPRESSION: Right pleural effusion and right lower lobe collapse. No fibrosis. Chest Ultrasound 05/19/20 00:00 IMPRESSION: Loculated small right pleural effusion. Abdomen/Pelvis CT 05/19/20 13:00 IMPRESSION: Multiloculated right pleural effusion with right lower lobe airspace disease. Rim enhancing loculation of fluid in the posterior right costophrenic sulcus abutting the posterior right lobe liver Chest X-Ray 05/21/20 11:30 IMPRESSION: Right chest tube has withdrawn with the tip now at the outer edge of the rib margin. Similar right pneumothorax. Similar right basilar consolidation - pleural effusion. Assessment and Plan - Diagnosis (1) Acute respiratory failure with hypoxia Is this a current diagnosis for this admission?: Yes Plan: Likely secondary to pneumonia, compressive atelectasis and loculated pleural effusion. Venous blood gas showed no evidence of CO2 retention. Typically tolerating 2 L but did increase nasal cannula to 5 today to help with this pneumothorax absorption. (2) Pneumothorax, right Is this a current diagnosis for this admission?: Yes Plan: Secondary to chest tube placement. Apical chest tube placed to help pneumothorax. Will get chest x-ray later today. Keep chest tube to suction. (3) Loculated pleural effusion Is this a current diagnosis for this admission?: Yes Plan: CT showed multiple loculations and right pleura. Likely complicated parapneumonic. Continue Augmentin. Will need to 2 to 3 weeks total of antibiotics. Chest tube placed 05/20 and drained nicely. Chest tube dislodged and had to be removed 05/21/2020 as she developed some subcutaneous emphysema. Diagnostic labs sent. Sample collected after TPA & dornase placed. (4) Abdominal visceral abscess Is this a current diagnosis for this admission?: Yes Plan: Abdominal CT did also tow picker a small [id number] rim-enhancing lesion which could represent small abscess noted next to the right liver lobe. I discussed with the radiologist who confirmed that this lesion is likely not in the right pleura and likely in the abdomen but is quite small and may or may not represent an actual abscess. After discussion, plan is to first drain the loculated pleural effusions and continue Augmentin and then reimage the abdomen to see if any progression of this questionable abscess. Fevers remain resolved. (5) Community acquired pneumonia Qualifiers: Laterality: right Lung location: lower lobe of lung Qualified Code(s): J18.9 - Pneumonia, unspecified organism Is this a current diagnosis for this admission?: Yes Plan: Fevers and leukocytosis have resolved. Completed 5 days of azithromycin and ceftriaxone. (6) Permanent atrial fibrillation Is this a current diagnosis for this admission?: Yes Plan: Heart rate improved. Still on sotalol and 7.[address] oMrales is following. We will resume Xarelto tomorrow. SQ Heparin in the meantime. Monitor on telemetry. (7) Hemochromatosis Qualifiers: Hemochromatosis type: unspecified Qualified Code(s): E83.119 - Hemochromatosis, unspecified Is this a current diagnosis for this admission?: Yes Plan: Patient has history of hemochromatosis and does have hepatomegaly. However currently abdominal CT shows significant improvement in fatty liver disease and iron saturation is actually not high at this point. (8) Osteoarthritis of knees, bilateral Qualifiers: Osteoarthritis type: primary Qualified Code(s): M17.0 - Bilateral primary osteoarthritis of knee Is this a current diagnosis for this admission?: Yes Plan: Patient has significant ambulatory dysfunction. She admits to history of [id number] osteoarthritis in her knees which limits ambulation. Gets around with a walker at home but only typically able to ambulate very short distances within the apartment. Her obesity is contributing to this problem. She is more amenable to SNF at this point if she continues not to show much improvement by the time of discharge. - Time Time Spent with patient: 15-24 minutes Anticipated Discharge Disposition: Alf Facility Anticipated Discharge Timeframe: within 72 hours
--- NOTE | 2020-05-21 15:35 | RADIOLOGY REPORT (SQ) ---
EXAM DESCRIPTION: CHEST SINGLE VIEW IMAGES COMPLETED DATE/TIME: 05/21/2020 3:09 pm REASON FOR STUDY: Replacement chest tube into anterior apical positi COMPARISON: None. EXAM PARAMETERS: NUMBER OF VIEWS: One view. TECHNIQUE: Single frontal radiographic view of the chest acquired. RADIATION DOSE: NA LIMITATIONS: None. FINDINGS: LUNGS AND PLEURA: Interval placement of a right chest tube with the tip in the upper right hemithorax. Right pneumothorax has improved. Continued patchy density in the right lung base. Lef t lung clear. MEDIASTINUM AND HILAR STRUCTURES: No masses. Contour normal. HEART AND VASCULAR STRUCTURES: Heart normal in size. Normal vasculature. BONES: No acute findings. HARDWARE: Right chest tube. OTHER: No other significant finding. IMPRESSION: INTERVAL PLACEMENT OF A RIGHT CHEST TUBE WITH IMPROVEMENT IN THE RIGHT PNEUMOTHORAX. TECHNICAL DOCUMENTATION: JOB ID: [id number] 2010 [employer]- All Rights Reserved Reading location - IP/workstation name: [email or web address]
--- NOTE | 2020-05-21 15:39 | RADIOLOGY REPORT (SQ) ---
EXAM DESCRIPTION: CHEST SINGLE VIEW; FLUORO/CHEST IMAGES COMPLETED DATE/TIME: 05/21/2020 3:20 pm REASON FOR STUDY: CHEST TUBE REPLACED IN OR COMPARISON: AP chest 05/21/2020 FLUOROSCOPY TIME: 0.1 minutes 7 digital fluoroscopic images saved to PACS. TECHNIQUE: Intra-operative images acquired during surgical procedure to evaluate progress. NUMBER OF IMAGES: 7 digital fluoroscopic images LIMITATIONS: None. FINDINGS: Intra procedural imaging during placement of a right large bore chest tube in the OR. Ple ase see the operative report for further details IMPRESSION: IMAGE(S) OBTAINED DURING PROCEDURE. COMMENT: Quality ID [id number]: Final reports for procedures using fluoroscopy that document radiation exp osure indices, or exposure time and number of fluorographic images (if radiation exposure indices are not available) Please consult full operative report of the attending physician for description of the procedure. TECHNICAL DOCUMENTATION: JOB ID: [id number] 2010 [employer]- All Rights Reserved Reading location - IP/workstation name: [email or web address]
--- NOTE | 2020-05-21 15:39 | RADIOLOGY REPORT (SQ) ---
EXAM DESCRIPTION: CHEST SINGLE VIEW; FLUORO/CHEST IMAGES COMPLETED DATE/TIME: 05/21/2020 3:20 pm REASON FOR STUDY: CHEST TUBE REPLACED IN OR COMPARISON: AP chest 05/21/2020 FLUOROSCOPY TIME: 0.1 minutes 7 digital fluoroscopic images saved to PACS. TECHNIQUE: Intra-operative images acquired during surgical procedure to evaluate progress. NUMBER OF IMAGES: 7 digital fluoroscopic images LIMITATIONS: None. FINDINGS: Intra procedural imaging during placement of a right large bore chest tube in the OR. Ple ase see the operative report for further details IMPRESSION: IMAGE(S) OBTAINED DURING PROCEDURE. COMMENT: Quality ID [id number]: Final reports for procedures using fluoroscopy that document radiation exp osure indices, or exposure time and number of fluorographic images (if radiation exposure indices are not available) Please consult full operative report of the attending physician for description of the procedure. TECHNICAL DOCUMENTATION: JOB ID: [id number] 2010 [employer]- All Rights Reserved Reading location - IP/workstation name: [email or web address]
[2020-05-21] MEDS ORDERED: FUROSEMIDE INJ/PF 20 MG/2 ML SDV ONE (18:51)
--- NOTE | 2020-05-21 18:53 | RADIOLOGY REPORT (SQ) ---
EXAM DESCRIPTION: CHEST SINGLE VIEW IMAGES COMPLETED DATE/TIME: 05/21/2020 6:38 pm REASON FOR STUDY: CT placement, pain, SOB COMPARISON: Earlier exam same date TECHNIQUE: Single frontal radiographic view of the chest acquired. NUMBER OF VIEWS: One view. LIMITATIONS: None. FINDINGS: LUNGS AND PLEURA: Small residual right pneumothorax. Right basilar consolidation - pleura l effusion. MEDIASTINUM AND HILAR STRUCTURES: Stable. HEART AND VASCULAR STRUCTURES: Stable. BONES: No acute findings. HARDWARE: Right chest tube appears in stable position. OTHER: No other significant finding. IMPRESSION: NO ACUTE FINDINGS.Right chest tube appears in stable position.Small residual right pneum othorax. Right basilar consolidation - pleural effusion. TECHNICAL DOCUMENTATION: JOB ID: [id number] [place]-72 2010 [employer]- All Rights Reserved Reading location - IP/workstation name: [email or web address]
--- NOTE | 2020-05-21 20:19 | EKG REPORT ---
SEVERITY:- ABNORMAL ECG - ATRIAL FIBRILLATION BORDERLINE LEFT AXIS DEVIATION ABNORMAL T, CONSIDER ISCHEMIA, LATERAL LEADS : Confirmed by: Elodia Ferreira MD 21-May-2020 20:18:27
--- NOTE | 2020-05-21 20:29 | Progress Note ---
Provider Note Provider Note: CARDIOLOGY PROGRESS NOTE by Dr. Elodia Ferreira on 05/21/2020. SUBJECTIVE: The patient is has some degree of shortness of breath and pain at the chest tube insertion site. The patient has developed a pneumothorax and subcutaneous S. Hence there seems to be dislodgment of the prior placed chest tube. Hence the patient is going back to have another chest tube insertion done. She remains in sinus rhythm and is on sotalol and Cardizem at 7.5 mg/h infusion drip. There is no ventricular arrhythmias or proarrhythmia seen from sotalol. The patient's QTc interval is acceptable PHYSICAL EXAMINATION: The patient is morbidly obese. Selected Entries 05/21/20 11:57 Temperature 97.8 F Temperature Oral Source Pulse Rate 77 Respiratory 20 Rate Blood Pressure 94/37 L Blood Pressure 56 Mean BP Location Left Arm BP Position Supine O2 Sat by Pulse 97 Oximetry Oxygen Flow 6.00 Rate Oxygen Delivery Nasal Cannula Method HEAD: Is atraumatic normocephalic. PUPILS are equal round regular reactive to light accommodation extraocular movements are normal. There is no conjunctival pallor. There is no scleral icterus. ENT is negative note patient is on BiPAP. NECK: Supple. There is no JVD. Carotids are equal there is no bruits. There is no lymphadenopathy. There is no goiter. There is no accessory muscle respiration use. Trachea central. LUNGS: There is a chest tube on the right side. There is some degree of subcutaneous crepitus. Lung sounds diminished in the right base.. There is no rales of CHF. HEART: S1-S2 is heard. S1 is of variable intensity. The patient is tachycardic. There is systolic murmur left sternal border and the apex there is no rub. ABDOMEN: Is obese. Nontender there is no hepatosplenomegaly. Bowel sounds are well heard. There is no tender areas masses. EXTREMITIES: Femorals are deep. There is no femoral bru its. Leg pulses are well felt. There is no pedal edema. There is no DVT or cellulitis. There is no cyanosis or clubbing. ROUTER SETTER: The patient is drowsy but without any focal deficits. PSYCHIATRIC: In spite of her drowsiness the patient judgment insight are intact and affect is normal. [ADELITA] . BORDERLINE LEFT AXIS DEVIATION [T3LA] . ABNORMAL T, CONSIDER ISCHEMIA, LATERAL LEADS - STMT - * SINUS RHYTHM. The patient's QTC is 408. Chest X-Ray 05/13/20 03:03 IMPRESSION: Small right effusion with minimal adjacent airspace opacity copyright 2010 [employer]- All Rights Reserved Chest X-Ray 05/16/20 00:00 IMPRESSION: Right-sided pleural effusion demonstrates increased volume on today's examination. Otherwise stable radiographic appearance of the chest. Chest CT 05/18/20 00:00 IMPRESSION: Right pleural effusion and right lower lobe collapse. No fibrosis. Chest Ultrasound 05/19/20 00:00 IMPRESSION: Loculated small right pleural effusion. Abdomen/Pelvis CT 05/19/20 13:00 IMPRESSION: Multiloculated right pleural effusion with right lower lobe airspace disease. Rim enhancing loculation of fluid in the posterior right costophrenic sulcus abutting the posterior right lobe liver Chest X-Ray 05/20/20 00:00 IMPRESSION: INTERVAL PLACEMENT OF A RIGHT CHEST TUBE. SMALL APICAL PNEUMOTHORAX, LESS THAN 10%. OTHERWISE NO SIGNIFICANT CHANGE. Chest Fluoroscopy 05/21/20 00:00 IMPRESSION: IMAGE(S) OBTAINED DURING PROCEDURE. Chest X-Ray 05/21/20 00:00 IMPRESSION: 1. Right chest tube with proximal port at the level of the chest wall; consider adjustment replacement. 2. Moderate right hydropneumothorax persists. Chest X-Ray 05/21/20 00:00 IMPRESSION: INTERVAL PLACEMENT OF A RIGHT CHEST TUBE WITH IMPROVEMENT IN THE RIGHT PNEUMOTHORAX. Chest X-Ray 05/21/20 00:00 IMPRESSION: IMAGE(S) OBTAINED DURING PROCEDURE. Chest X-Ray 05/21/20 00:00 IMPRESSION: NO ACUTE FINDINGS.Right chest tube appears in stable position.Small residual right pneumothorax. Right basilar consolidation - pleural effusion. Chest X-Ray 05/21/20 11:30 IMPRESSION: Right chest tube has withdrawn with the tip now at the outer edge of the rib margin. Similar right pneumothorax. Similar right basilar consolidation - pleural effusion. iMPRESSION/RECOMMENDATION: 1. Paroxysmal Atrial fibrillation. No patient in is in sinus rhythm.. Continue sotalol. The patient was given a dose of digoxin 0.25 mg IV push. This did not bring the rate down. Hence we will start the patient on Cardizem drip. The patient was started on Cardizem drip at 2.5 mg/h and increased subsequently to 7.5 mg/h. There is no TIA CVA symptoms. Patient is tolerating a higher dose of sotalol without proarrhythmia. And there is no QTc prolongation. 2. Pneumonia: Continue antibiotics continue BiPAP as needed and oxygen supplementation. 3. Right pleural effusion, status post drainage with chest tube, patient developed pneumothorax hence patient for respiratory insertion of chest tube by Dr. Hope. 4 history of hypertension: At present blood pressure on the lower side. 5. History of hemochromatosis: At present does not seem to be any acute problems from this. The patient CT does not show enlarged liver. 6. COVID test code19 test came back negative 7. Obesity. Medications reviewed. Medications added and adjusted. Medical decision making is of high complexity. Medical regimen and management plan discussed with attending.The case. 40 minutes spent on this patient more than 50% of time spent in direct patient care. Will follow.
[2020-05-21] MEDS: MELATONIN 5 MG TABLET PO SCH (22:55)
[2020-05-21] MEDS: HEPARIN SOD (PORCINE) 5,000 UNIT/ML 1 ML VIAL SUBCUT SCH (22:59)
[2020-05-22] MEDS: OXYCODONE-ACETAMINOPHEN 5-325 MG TABLET PO PRN ×3 (04:49→20:24)
[2020-05-22] MEDS: PANTOPRAZOLE SODIUM 20 MG TABLET.DR PO SCH (06:09)
[2020-05-22] MEDS: DILTIAZEM HCL/D5W 125 MG/125 ML RTUINJ IV PRN ×2 (06:09→23:41)
--- NOTE | 2020-05-22 09:07 | RADIOLOGY REPORT (SQ) ---
EXAM DESCRIPTION: CHEST SINGLE VIEW IMAGES COMPLETED DATE/TIME: 05/22/2020 8:44 am REASON FOR STUDY: pleural effusion COMPARISON: AP view of the chest from 05/21/2020. EXAM PARAMETERS: NUMBER OF VIEWS: One view. TECHNIQUE: An AP view of the chest was obtained. RADIATION DOSE: NA LIMITATIONS: None. FINDINGS: LUNGS AND PLEURA: Unchanged pleural and parenchymal opacities in the inferior aspect of th e right hemithorax. The right lateral costophrenic sulcus is blunted. There is no discernible pneum othorax. MEDIASTINUM AND HILAR STRUCTURES: Stable mediastinal and hilar contours. HEART AND VASCULAR STRUCTURES: Stable cardiac silhouette. BONES: No acute findings. HARDWARE: Stable position of the large bore right apical chest tube. OTHER: Mild subcutaneous emphysema in the lateral aspect of the right hemithorax. IMPRESSION: Unchanged radiographic appearance of the chest. TECHNICAL DOCUMENTATION: JOB ID: [id number] 2010 [employer]- All Rights Reserved Reading location - IP/workstation name: [email or web address]
[2020-05-22] MEDS: FLUTICASONE/VILANTEROL 100-25 MCG/DOSE IH SCH (09:34)
[2020-05-22] MEDS: MAGNESIUM HYDROXIDE SUSP 30 ML UDCUP PO SCH (09:35)
[2020-05-22] MEDS: TIMOLOL MALEATE 0.5% OPH SOLN 5 ML OU SCH ×2 (09:35→22:19)
[2020-05-22] MEDS: BRIMONIDINE TARTRATE 0.2% OPH SOLN 5 ML OU SCH ×2 (09:36→22:19)
[2020-05-22] MEDS: SOTALOL HCL 80 MG TABLET PO SCH ×2 (09:36→22:20)
[2020-05-22] MEDS: ASCORBIC ACID 500 MG TABLET PO SCH ×2 (09:36→17:14)
[2020-05-22] MEDS: DOCUSATE SODIUM 100 MG CAPSULE PO SCH ×3 (09:36→17:14)
[2020-05-22] MEDS: HEPARIN SOD (PORCINE) 5,000 UNIT/ML 1 ML VIAL SUBCUT SCH ×2 (09:36→22:20)
[2020-05-22] MEDS: MAGNESIUM OXIDE 400 MG TABLET PO SCH ×2 (09:36→17:14)
[2020-05-22] MEDS: AMOXICILLIN TR/POT CLAVULANATE 875-125 MG TAB PO SCH ×2 (09:37→22:20)
[2020-05-22] MEDS: MORPHINE SULFATE 10 MG/ML INJ IV PRN ×2 (09:41→18:40)
[2020-05-22] MEDS: LEVALBUTEROL HCL NEB 1.25 MG/3 ML AMPUL NEB PRN (10:10)
[2020-05-22] MEDS ORDERED: ALTEPLASE INJ 2 MG VIAL (CATH CLEARANCE) IPL ONE (14:30)
--- NOTE | 2020-05-22 15:47 | PDOC PROGRESS REPORT ---
Subjective Progress Note for:: 05/22/20 Subjective:: Patient feels well today. right sided pain has improved. Still some tenderness in abdomen. Reason For Visit: COVID 19,PNEUMONIA Physical Exam Vital Signs: Temp Pulse Resp BP Pulse Ox 97.8 F 83 20 103/42 L 96 05/22/20 11:29 05/22/20 15:00 05/22/20 11:29 05/22/20 15:00 05/22/20 11:29 Pulse Oximeter Nocturnal Start: 05/17/20 16:50 Freq: RTQ4 Status: Complete Protocol: Document 05/18/20 05:07 [facility] (Rec: 05/18/20 05:55 [facility] [id number]) Nocturnal Pulse Oximetry Equipment Usage Equipment Discontinued Continuous SpO2 Machine # N-2 Intake & Output 05/21/20 05/22/20 05/23/20 06:59 06:59 06:59 Intake Total 717 1740 410 Output Total 710 250 49 Balance 7 1490 361 Weight 119 kg 116.6 kg General appearance: PRESENT: no acute distress, cooperative Neck exam: ABSENT: JVD Respiratory exam: PRESENT: unlabored. ABSENT: accessory muscle use, retraction, tachypnea, wheezes Cardiovascular exam: PRESENT: RRR, +S1, +S2. ABSENT: tachycardia GI/Abdominal exam: PRESENT: soft, tenderness. ABSENT: distended, firm, guarding, rebound, rigid Neurological exam: PRESENT: alert, awake, oriented to person, oriented to place, oriented to time Results Laboratory Results: 05/20/20 05:14 05/20/20 05:14 05/19/20 05/19/20 05/19/20 15:55 15:55 15:55 Fluid Glucose 68 Fluid Total Protein 3.1 Fluid Albumin 1.3 Fluid LDH 05/19/20 15:55 Fluid Glucose Fluid Total Protein Fluid Albumin Fluid LDH 1062 05/19/20 15:55 Pleural Fluid Gram Stain - Final 05/13/20 02:15 Troponin I < 0.012 Impressions: Chest CT 05/18/20 00:00 IMPRESSION: Right pleural effusion and right lower lobe collapse. No fibrosis. Chest Ultrasound 05/19/20 00:00 IMPRESSION: Loculated small right pleural effusion. Abdomen/Pelvis CT 05/19/20 13:00 IMPRESSION: Multiloculated right pleural effusion with right lower lobe airspace disease. Rim enhancing loculation of fluid in the posterior right costophrenic sulcus abutting the posterior right lobe liver Chest Fluoroscopy 05/21/20 00:00 IMPRESSION: IMAGE(S) OBTAINED DURING PROCEDURE. Chest X-Ray 05/22/20 00:00 IMPRESSION: Unchanged radiographic appearance of the chest. Assessment and Plan - Diagnosis (1) Acute respiratory failure with hypoxia Is this a current diagnosis for this admission?: Yes Plan: Likely secondary to pneumonia, compressive atelectasis and loculated pleural effusion. Venous blood gas showed no evidence of CO2 retention. Milligrams on nasal cannula (2) Pneumothorax, right Is this a current diagnosis for this admission?: Yes Plan: Secondary to chest tube placement. Apical chest tube placed to help pneumothorax. No air leak on my assessment today. X-ray shows resolution of the pneumothorax. We will discontinue the suction on the chest tube and just leave to waterseal. Plan to get on the chest x-ray tomorrow and likely remove chest tube tomorrow (3) Loculated pleural effusion Is this a current diagnosis for this admission?: Yes Plan: CT showed multiple loculations and right pleura. Likely complicated parapneumonic. Continue Augmentin. Will need 2 to 3 weeks total of antibiotics. Chest tube placed 05/20 and drained nicely. Chest tube dislodged and had to be removed 05/21/2020 as she developed some subcutaneous emphysema. Will discuss plan going forward with surgery. 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 I discussed with the radiologist who confirmed that this lesion is likely not in the right pleura and likely in the abdomen but is quite small and may or may not represent an actual abscess. After discussion, plan is to first drain the loculated pleural effusions and continue Augmentin and then reimage the abdomen to see if any progression of this questionable abscess. Fevers remain resolved. (5) Community acquired pneumonia Qualifiers: Laterality: right Lung location: lower lobe of lung Qualified Code(s): J18.9 - Pneumonia, unspecified organism Is this a current diagnosis for this admission?: Yes Plan: Fevers and leukocytosis have resolved. Completed 5 days of azithromycin and ceftriaxone. (6) Permanent atrial fibrillation Is this a current diagnosis for this admission?: Yes Plan: Heart rate improved. Still on sotalol and 7.5 diltiazem drip. Will discuss plan with cardiology. Xarelto on hold. SQ Heparin in the meantime. Monitor on telemetry. (7) Hemochromatosis Qualifiers: Hemochromatosis type: unspecified Qualified Code(s): E83.119 - Hemochromatosis, unspecified Is this a current diagnosis for this admission?: Yes (8) Osteoarthritis of knees, bilateral Qualifiers: Osteoarthritis type: primary Qualified Code(s): M17.0 - Bilateral primary osteoarthritis of knee Is this a current diagnosis for this admission?: Yes - Time Time Spent with patient: Less than 15 minutes Anticipated Discharge Disposition: Snf Facility Anticipated Discharge Timeframe: within 48 hours
[2020-05-22] MEDS ORDERED: DORNASE ALFA NEB 2.5 MG/2.5 ML AMPUL IPL ONE (16:00)
--- NOTE | 2020-05-22 19:18 | PDOC PROGRESS REPORT ---
Subjective Progress Note for:: 05/22/20 Subjective:: 70-year-old female with loculated parapneumonic effusion. Patient reports chest pain today, likely related to her tube thoracostomy. Patient received Cathflo on Friday, but did not receive any yesterday, due to her pneumothorax. She also reports mild to moderate shortness of breath. She denies abdominal pain, nausea, vomiting, dizziness, melena, hematochezia, hematemesis, headache, blurry vision. Reason For Visit: COVID 19,PNEUMONIA Physical Exam Vital Signs: Temp Pulse Resp BP Pulse Ox 98.5 F 82 20 103/56 L 97 05/22/20 15:12 05/22/20 18:00 05/22/20 15:12 05/22/20 18:00 05/22/20 15:12 Pulse Oximeter Nocturnal Start: 05/17/20 16:50 Freq: RTQ4 Status: Complete Protocol: Document 05/18/20 05:07 [facility] (Rec: 05/18/20 05:55 [facility] [id number]) Nocturnal Pulse Oximetry Equipment Usage Equipment Discontinued Continuous SpO2 Machine # N-2 Intake & Output 05/21/20 05/22/20 05/23/20 06:59 06:59 06:59 Intake Total 717 1740 670 Output Total 710 250 49 Balance 7 1490 621 Weight 119 kg 116.6 kg General appearance: PRESENT: no acute distress, obese Head exam: PRESENT: atraumatic, normocephalic Eye exam: PRESENT: EOMI, PERRLA. ABSENT: scleral icterus Mouth exam: PRESENT: moist, neck supple Neck exam: ABSENT: meningismus, tenderness, thyromegaly, tracheal deviation Respiratory exam: PRESENT: unlabored, other - Chest tube in place. Serosanguineous output. No air leak. Currently to waterseal.. ABSENT: tachypnea Cardiovascular exam: ABSENT: tachycardia GI/Abdominal exam: PRESENT: soft. ABSENT: distended, firm, tenderness Rectal exam: PRESENT: deferred Extremities exam: ABSENT: clubbing Musculoskeletal exam: ABSENT: deformity Neurological exam: PRESENT: alert, awake, oriented to person, oriented to place, oriented to time, oriented to situation Psychiatric exam: ABSENT: agitated, anxious, depressed Focused psych exam: ABSENT: delusional Skin exam: ABSENT: cyanosis, erythema, jaundice Results Laboratory Results: 05/20/20 05:14 05/20/20 05:14 05/19/20 05/19/20 05/19/20 15:55 15:55 15:55 Fluid Glucose 68 Fluid Total Protein 3.1 Fluid Albumin 1.3 Fluid LDH 05/19/20 15:55 Fluid Glucose Fluid Total Protein Fluid Albumin Fluid LDH 1062 05/19/20 15:55 Pleural Fluid Gram Stain - Final 05/13/20 02:15 Troponin I < 0.012 Impressions: Chest CT 05/18/20 00:00 IMPRESSION: Right pleural effusion and right lower lobe collapse. No fibrosis. Chest Ultrasound 05/19/20 00:00 IMPRESSION: Loculated small right pleural effusion. Abdomen/Pelvis CT 05/19/20 13:00 IMPRESSION: Multiloculated right pleural effusion with right lower lobe airspace disease. Rim enhancing loculation of fluid in the posterior right costophrenic sulcus abutting the posterior right lobe liver Chest Fluoroscopy 05/21/20 00:00 IMPRESSION: IMAGE(S) OBTAINED DURING PROCEDURE. Chest X-Ray 05/22/20 00:00 IMPRESSION: Unchanged radiographic appearance of the chest. Assessment & Plan - Diagnosis (1) Community acquired pneumonia Qualifiers: Laterality: right Lung location: lower lobe of lung Qualified Code(s): J18.9 - Pneumonia, unspecified organism Is this a current diagnosis for this admission?: Yes (2) Loculated pleural effusion Is this a current diagnosis for this admission?: Yes (3) Obesity Qualifiers: Obesity type: unspecified obesity type Obesity classification: adult class 2 (BMI 35 - 39.9) Serious obesity comorbidity presence: with serious comorbidity Body mass index: BMI 39.0-39.9 Qualified Code(s): E66.01 - Morbid (severe) obesity due to excess calories; Z68.39 - Body mass index (BMI) 39.0-39.9, adult Is this a current diagnosis for this admission?: Yes - Time Anticipated Discharge Disposition: unknown Anticipated Discharge Timeframe: unknown - Plan Summary Plan Summary: 70-year-old female with a loculated parapneumonic effusion. The chest tube has been draining serosanguineous fluid. No Cathflo was used yesterday due to her pneumothorax. I believe the pneumothorax was related to the fact that the chest tube had come out, as opposed to visceral lung injury. Plan for readministration of 6 mg of Cathflo with 5 mg of dornase alpha. Will clamp chest tube for 4 hours, then allowed to drain. I will repeat this tomorrow. Repeat chest x-ray tomorrow. Surgery will continue to follow with you.
--- NOTE | 2020-05-22 22:05 | Progress Note ---
Provider Note Provider Note: CARDIOLOGY PROGRESS NOTE by Dr. Elodia Ferreira on 05/22/2020. Subjective:: The patient remains in sinus rhythm. She is on sotalol as well as IV Cardizem drip at 7.5 mg/h. We will continue this. She had a chest tube placed for pneumothorax. She feels better and less short of breath. There is no ventricular arrhythmias seen on the monitor. There is no prior arrhythmias on the monitor. PHYSICAL EXAMINATION: The patient is moderate to severely obese. At present in no acute distress Selected Entries 05/22/20 11:29 Temperature 97.8 F Temperature Axillary Source Pulse Rate 69 Respiratory 20 Rate Blood Pressure 104/44 L Blood Pressure 64 Mean BP Location Left Arm BP Position Supine O2 Sat by Pulse 96 Oximetry Oxygen Flow 4.00 Rate Oxygen Delivery Nasal Cannula Method HEAD: Is atraumatic normocephalic. PUPILS are equal round regular reactive to light accommodation extraocular movements are normal. There is no conjunctival pallor. There is no scleral icterus. ENT is negative note patient is on BiPAP. NECK: Supple. There is no JVD. Carotids are equal there is no bruits. There is no lymphadenopathy. There is no goiter. There is no accessory muscle respiration use. Trachea central. LUNGS: There is a chest tube on the right side. There is some degree of subcutaneous crepitus. Lung sounds diminished in the right base.. There is no rales of CHF. HEART: S1-S2 is heard. S1 is of variable intensity. The patient is tachycardic. There is systolic murmur left sternal border and the apex there is no rub. ABDOMEN: Is obese. Nontender there is no hepatosplenomegaly. Bowel sounds are well heard. There is no t kimberly areas masses. EXTREMITIES: Femorals are deep. There is no femoral bruits. Leg pulses are well felt. There is no pedal edema. There is no DVT or cellulitis. There is no cyanosis or clubbing. 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 PSYCHIATRIC: In spite of her drowsiness the patient judgment insight are intact and affect is normal. Labs- All tests 24 hr 05/19/20 05/19/20 05/19/20 15:55 15:55 15:55 Fluid Glucose 68 Fluid Total Protein 3.1 Fluid Albumin 1.3 Fluid LDH 05/19/20 15:55 Fluid Glucose Fluid Total Protein Fluid Albumin Fluid LDH 1062 Chest X-Ray 05/13/20 03:03 IMPRESSION: Small right effusion with minimal adjacent airspace opacity copyright 2010 [employer]- All Rights Reserved Chest X-Ray 05/16/20 00:00 IMPRESSION: Right-sided pleural effusion demonstrates increased volume on today's examination. Otherwise stable radiographic appearance of the chest. Chest CT 05/18/20 00:00 IMPRESSION: Right pleural effusion and right lower lobe collapse. No fibrosis. Chest Ultrasound 05/19/20 00:00 IMPRESSION: Loculated small right pleural effusion. Abdomen/Pelvis CT 05/19/20 13:00 IMPRESSION: Multiloculated right pleural effusion with right lower lobe airspace disease. Rim enhancing loculation of fluid in the posterior right costophrenic sulcus abutting the posterior right lobe liver Chest X-Ray 05/20/20 00:00 IMPRESSION: INTERVAL PLACEMENT OF A RIGHT CHEST TUBE. SMALL APICAL PNEUMOTHORAX, LESS THAN 10%. OTHERWISE NO SIGNIFICANT CHANGE. Chest Fluoroscopy 05/21/20 00:00 IMPRESSION: IMAGE(S) OBTAINED DURING PROCEDURE. Chest X-Ray 05/21/20 00:00 IMPRESSION: 1. Right chest tube with proximal port at the level of the chest wall; consider adjustment replacement. 2. Moderate right hydropneumothorax persists. Chest X-Ray 05/21/20 00:00 IMPRESSION: INTERVAL PLACEMENT OF A RIGHT CHEST TUBE WITH IMPROVEMENT IN THE RIGHT PNEUMOTHORAX. Chest X-Ray 05/21/20 00:00 IMPRESSION: IMAGE(S) OBTAINED DURING PROCEDURE. Chest X-Ray 05/21/20 00:00 IMPRESSION: NO ACUTE FINDINGS.Right chest tube appears in stable position.Small residual right pneumothorax. Right basilar consolidation - pleural effusion. Chest X-Ray 05/21/20 11:30 IMPRESSION: Right chest tube has withdrawn with the tip now at the outer edge of the rib margin. Similar right pneumothorax. Similar right basilar con solidation - pleural effusion. Chest X-Ray 05/22/20 00:00 IMPRESSION: Unchanged radiographic appearance of the chest. IMPRESSION/RECOMMENDATION: 1. Paroxysmal Atrial fibrillation. No patient in is in sinus rhythm.. Continue sotalol. The patient was given a dose of digoxin 0.25 mg IV push. This did not bring the rate down. Hence we will start the patient on Cardizem drip. The patient was started on Cardizem drip at 2.5 mg/h and increased subsequently to 7.5 mg/h. There is no TIA CVA symptoms. Patient is tolerating a higher dose of sotalol without proarrhythmia. And there is no QTc prolongation. 2. Pneumonia: Continue antibiotics continue BiPAP as needed and oxygen supplementation. 3. Right pleural effusion, status post drainage with chest tube, patient developed pneumothorax hence patient for respiratory insertion of chest tube by Dr. Hope. 4 history of hypertension: At present blood pressure on the lower side. 5. History of hemochromatosis: At present does not seem to be any acute problems from this. The patient CT does not show enlarged liver. 6. COVID test code19 test came back negative 7. Obesity. Medications reviewed. Medications added and adjusted. Medical decision making is of high complexity. Medical regimen and management plan discussed with attending.The case. 40 minutes spent on this patient more than 50% of time spent in direct patient care. Will follow.
[2020-05-22] MEDS: MELATONIN 5 MG TABLET PO SCH (22:20)
[2020-05-23] MEDS: MORPHINE SULFATE 10 MG/ML INJ IV PRN ×2 (00:58→06:13)
[2020-05-23] MEDS: OXYCODONE-ACETAMINOPHEN 5-325 MG TABLET PO PRN ×3 (04:59→17:27)
[2020-05-23] MEDS ORDERED: ALTEPLASE INJ 2 MG VIAL (CATH CLEARANCE) IPL ONE ×2 (05:45→14:45)
[2020-05-23] MEDS: PANTOPRAZOLE SODIUM 20 MG TABLET.DR PO SCH (06:10)
[2020-05-23] MEDS: ASCORBIC ACID 500 MG TABLET PO SCH ×2 (10:37→17:27)
[2020-05-23] MEDS: MAGNESIUM OXIDE 400 MG TABLET PO SCH ×2 (10:37→17:27)
[2020-05-23] MEDS: MAGNESIUM HYDROXIDE SUSP 30 ML UDCUP PO SCH (10:37)
[2020-05-23] MEDS: DOCUSATE SODIUM 100 MG CAPSULE PO SCH ×3 (10:38→17:28)
[2020-05-23] MEDS: SOTALOL HCL 80 MG TABLET PO SCH ×2 (10:38→22:33)
--- NOTE | 2020-05-23 10:38 | PDOC PROGRESS REPORT ---
Subjective Progress Note for:: 05/23/20 Subjective:: Patient feels well today. Not much in terms of complaints. Has mild tenderness over her reducible hernia. Only has minimal shortness of breath. Reason For Visit: COVID 19,PNEUMONIA Physical Exam Vital Signs: Temp Pulse Resp BP Pulse Ox 98.2 F 105 H 20 105/55 L 99 05/23/20 09:02 05/23/20 09:02 05/23/20 09:02 05/23/20 09:02 05/23/20 09:02 Pulse Oximeter Nocturnal Start: 05/17/20 16:50 Freq: RTQ4 Status: Complete Protocol: Document 05/18/20 05:07 [facility] (Rec: 05/18/20 05:55 [facility] [id number]) Nocturnal Pulse Oximetry Equipment Usage Equipment Discontinued Continuous SpO2 Machine # N-2 Intake & Output 05/22/20 05/23/20 05/24/20 06:59 06:59 06:59 Intake Total 1740 1295 Output Total 250 49 0 Balance 1490 1246 0 Weight 116.6 kg 115.1 kg General appearance: PRESENT: no acute distress, cooperative Neck exam: ABSENT: JVD Respiratory exam: PRESENT: clear to auscultation aroldo, symmetrical, unlabored, other - has anterior chest wall chest tube which is clamped. ABSENT: tachypnea, wheezes GI/Abdominal exam: PRESENT: hernia - Tender ventral but easily reducible, soft. ABSENT: distended, firm, guarding, rebound, rigid Neurological exam: PRESENT: alert, awake, oriented to person, oriented to place, oriented to time, oriented to situation Psychiatric exam: ABSENT: agitated, anxious Results Laboratory Results: 05/20/20 05:14 05/20/20 05:14 05/19/20 15:55 Fluid pH 7.9 05/19/20 15:55 Pleural Fluid Gram Stain - Final 05/13/20 02:15 Troponin I < 0.012 Impressions: Chest CT 05/18/20 00:00 IMPRESSION: Right pleural effusion and right lower lobe collapse. No fibrosis. Chest Ultrasound 05/19/20 00:00 IMPRESSION: Loculated small right pleural effusion. Abdomen/Pelvis CT 05/19/20 13:00 IMPRESSION: Multiloculated right pleural effusion with right lower lobe airspace disease. Rim enhancing loculation of fluid in the posterior right costophrenic sulcus abutting the posterior right lobe liver Chest Fluoroscopy 05/21/20 00:00 IMPRESSION: IMAGE(S) OBTAINED DURING PROCEDURE. Assessment and Plan - Diagnosis (1) Loculated pleural effusion Is this a current diagnosis for this admission?: Yes Plan: Complicated right parapneumonic with multiple loculations on CT. pH on pleural fluid is misleading as sample was collected after alteplase and dornase had been administered. However, no rey growth on stain/culture nor purulence to suggest empyema. Continue Augmentin. Will need 2 to 3 weeks total of antibiotics. Chest tube placed 05/20 and drained nicely but dislodged. 2nd posterior chest tube also dislodged on 05/21 and removed. Currently, patient has anterior chest tube. TPA/dornase augusto being administered 2/3 doses so far. Seems chest tube was left clamped overnight so instructed nurse to unclamp to allow to drain. Discussed with Dr. Lovett will continue to follow. Plan for repeat CAT scan tomorrow to reevaluate loculations.... If this fails, next step will be tertiary transfer for VATS. (2) Acute respiratory failure with hypoxia Is this a current diagnosis for this admission?: Yes Plan: Likely secondary to pneumonia, compressive atelectasis and loculated pleural effusion. Venous blood gas showed no evidence of CO2 retention. Milligrams on nasal cannula (3) Pneumothorax, right Is this a current diagnosis for this admission?: Yes Plan: Secondary to chest tube placement. Resolved. (4) Abdominal visceral abscess Is this a current diagnosis for this admission?: Yes Plan: Abdominal CT did also leaf size picker a small [id number] rim-enhancing lesion which could represent small abscess noted next to the right liver lobe. I discussed with the radiologist who confirmed that this lesion is likely not in the right pleura and likely in the abdomen but is quite small and may or may not represent an actual abscess. After discussion, plan is to first drain the loculated pleural effusions and continue Augmentin and then reimage the abdomen to see if any progression of this questionable abscess. Fevers remain resolved. (5) Community acquired pneumonia Qualifiers: Laterality: right Lung location: lower lobe of lung Qualified Code(s): J18.9 - Pneumonia, unspecified organism Is this a current diagnosis for this admission?: Yes Plan: Fevers and leukocytosis have resolved. Completed 5 days of azithromycin and ceftriaxone. (6) Permanent atrial fibrillation Is this a current diagnosis for this admission?: Yes Plan: Heart rate controlled today. Still on sotalol. Dr. Morales recommends continuing diltiazem drip at 7.5 until lung issues have been addressed. Xarelto on hold. SQ Heparin in the meantime. Monitor on telemetry. (7) Hemochromatosis Qualifiers: Hemochromatosis type: unspecified Qualified Code(s): E83.119 - Hemochromatosis, unspecified Is this a current diagnosis for this admission?: Yes Plan: Patient has history of hemochromatosis and does have hepatomegaly. However currently abdominal CT shows significant improvement in fatty liver disease and iron saturation is actually not high at this point. (8) Osteoarthritis of knees, bilateral Qualifiers: Osteoarthritis type: primary Qualified Code(s): M17.0 - Bilateral primary osteoarthritis of knee Is this a current diagnosis for this admission?: Yes - Time Time Spent with patient: 15-24 minutes Anticipated Discharge Disposition: Group Home Facility Anticipated Discharge Timeframe: within 72 hours
[2020-05-23] MEDS: TIMOLOL MALEATE 0.5% OPH SOLN 5 ML OU SCH ×2 (10:39→22:31)
[2020-05-23] MEDS: FLUTICASONE/VILANTEROL 100-25 MCG/DOSE IH SCH (10:39)
[2020-05-23] MEDS: BRIMONIDINE TARTRATE 0.2% OPH SOLN 5 ML OU SCH ×2 (10:39→22:43)
[2020-05-23] MEDS: AMOXICILLIN TR/POT CLAVULANATE 875-125 MG TAB PO SCH ×2 (10:39→22:30)
[2020-05-23] MEDS: HEPARIN SOD (PORCINE) 5,000 UNIT/ML 1 ML VIAL SUBCUT SCH ×2 (10:40→22:30)
--- NOTE | 2020-05-23 11:50 | RADIOLOGY REPORT (SQ) ---
EXAM DESCRIPTION: CHEST SINGLE VIEW IMAGES COMPLETED DATE/TIME: 05/23/2020 8:14 am REASON FOR STUDY: eval effusion COMPARISON: Chest radiograph 05/22/2020 EXAM PARAMETERS: NUMBER OF VIEWS: One view. TECHNIQUE: Single frontal radiographic view of the chest acquired. RADIATION DOSE: NA LIMITATIONS: None. FINDINGS: LUNGS AND PLEURA: A small to moderate right pleural effusion is stable from prior. No pne umothorax. The left lung is clear. No left effusion. MEDIASTINUM AND HILAR STRUCTURES: No masses. Contour normal. HEART AND VASCULAR STRUCTURES: Moderate cardiomegaly. No pulmonary vascular congestion. BONES: No acute findings. HARDWARE: A right chest tube with tip at the right lateral lung is unchanged. OTHER: No other significant finding. IMPRESSION: Right chest tube remains in place. Small to moderate right pleural effusion unchanged. No pneumothorax. TECHNICAL DOCUMENTATION: JOB ID: [id number] 2010 [employer]- All Rights Reserved Reading location - IP/workstation name: [email or web address]
[2020-05-23] MEDS ORDERED: DORNASE ALFA NEB 2.5 MG/2.5 ML AMPUL IPL ONE (15:00)
--- NOTE | 2020-05-23 15:16 | PDOC PROGRESS REPORT ---
Subjective Progress Note for:: 05/23/20 Subjective:: 70-year-old female with a loculated parapneumonic effusion. Patient reports continued chest pain today, likely related to her tube thoracostomy. She also reports mild to moderate shortness of breath. She denies abdominal pain, nausea, vomiting, dizziness, melena, hematochezia, hematemesis, headache, blurry vision. Reason For Visit: COVID 19,PNEUMONIA Physical Exam Vital Signs: Temp Pulse Resp BP Pulse Ox 97.5 F 76 18 102/69 99 05/23/20 10:56 05/23/20 14:00 05/23/20 10:56 05/23/20 13:00 05/23/20 10:56 Pulse Oximeter Nocturnal Start: 05/17/20 16:50 Freq: RTQ4 Status: Complete Protocol: Document 05/18/20 05:07 [facility] (Rec: 05/18/20 05:55 [facility] [id number]) Nocturnal Pulse Oximetry Equipment Usage Equipment Discontinued Continuous SpO2 Machine # N-2 Intake & Output 05/22/20 05/23/20 05/24/20 06:59 06:59 06:59 Intake Total 1740 1295 Output Total 250 49 0 Balance 1490 1246 0 Weight 116.6 kg 115.1 kg Results Laboratory Results: 05/20/20 05:14 05/20/20 05:14 05/19/20 15:55 Fluid pH 7.9 05/19/20 15:55 Pleural Fluid Gram Stain - Final 05/13/20 02:15 Troponin I < 0.012 Impressions: Chest CT 05/18/20 00:00 IMPRESSION: Right pleural effusion and right lower lobe collapse. No fibrosis. Chest Ultrasound 05/19/20 00:00 IMPRESSION: Loculated small right pleural effusion. Abdomen/Pelvis CT 05/19/20 13:00 IMPRESSION: Multiloculated right pleural effusion with right lower lobe airspace disease. Rim enhancing loculation of fluid in the posterior right costophrenic sulcus abutting the posterior right lobe liver Chest Fluoroscopy 05/21/20 00:00 IMPRESSION: IMAGE(S) OBTAINED DURING PROCEDURE. Chest X-Ray 05/23/20 06:00 IMPRESSION: Right chest tube remains in place. Small to moderate right pleural effusion unchanged. No pneumothorax. Assessment & Plan - Diagnosis (1) Community acquired pneumonia Qualifiers: Laterality: right Lung location: lower lobe of lung Qualified Code(s): J18.9 - Pneumonia, unspecified organism Is this a current diagnosis for this admission?: Yes (2) Loculated pleural effusion Is this a current diagnosis for this admission?: Yes (3) Obesity Qualifiers: Obesity type: unspecified obesity type Obesity classification: adult class 2 (BMI 35 - 39.9) Serious obesity comorbidity presence: with serious comorbidity Body mass index: BMI 39.0-39.9 Qualified Code(s): E66.01 - Morbid (severe) obesity due to excess calories; Z68.39 - Body mass index (BMI) 39.0-39.9, adult Is this a current diagnosis for this admission?: Yes - Time Anticipated Discharge Disposition: unknown Anticipated Discharge Timeframe: unknown - Plan Summary Plan Summary: 70-year-old female with a loculated parapneumonic effusion. The chest tube has been draining serosanguineous fluid. Cathflo was used yesterday. Plan for readministration of 6 mg of Cathflo with 5 mg of dornase alpha again today. Will clamp chest tube for 4 hours, then allowed to drain. I will repeat this a final time tomorrow. Repeat chest x-ray tomorrow. Surgery will continue to follow with you.
--- NOTE | 2020-05-23 15:55 | Progress Note ---
Provider Note Provider Note: CARDIOLOGY PROGRESS NOTE by Dr. Elodia Ferreira on 05/23/2020. SUBJECTIVE: She states her shortness breath is much improved. She remains in sinus rhythm. There is no proarrhythmia on sotalol. She is on a Cardizem drip at 7.5 mg/h. There is no anginal symptoms. There is no ventricular arrhythmias. She still has the chest tube. PHYSICAL EXAMINATION: The patient is morbidly obese. But at present in no acute distress. Selected Entries 05/23/20 05/23/20 16:34 17:00 Temperature 98.1 F Temperature Axillary Source Pulse Rate 91 Respiratory 19 Rate Blood Pressure 110/60 [Upper Arm] Blood Pressure 76 Mean [Upper Arm ] Blood Pressure Supine Position [Upper Arm] O2 Sat by Pulse 99 Oximetry Oxygen Delivery Nasal Cannula Method ( includes room air) Oxygen Flow 4 Rate HEAD: Is atraumatic normocephalic. PUPILS are equal round regular reactive to light accommodation extraocular movements are normal. There is no conjunctival pallor. There is no scleral icterus. ENT is negative note patient is on BiPAP. NECK: Supple. There is no JVD. Carotids are equal there is no bruits. There is no lymphadenopathy. There is no goiter. There is no accessory muscle respiration use. Trachea central. LUNGS: There is a chest tube on the right side. There is some degree of subcutaneous crepitus. Lung sounds diminished in the right base.. There is no rales of CHF. HEART: S1-S2 is heard. S1 is of variable intensity. The patient is tachycardic. There is systolic murmur left sternal border and the apex there is no rub. ABDOMEN: Is obese. Nontender there is no hepatosplenomegaly. Bowel sounds are well heard. There is no tender areas masses. EXTREMITIES: Femorals are deep. There is no femoral bruits. Leg pulses are well felt. There is no pedal edema. There is no DVT or cellulitis. There is no cyanosis or clubbing. FINISHER HAND: The patient is drowsy but without any focal deficits. PSYCHIATRIC: In spite of her drowsiness the patient judgment insight are intact and affect is normal. Labs- All tests 24 hr 05/19/20 15:55 Fluid pH 7.9 Chest X-Ray 05/13/20 03:03 IMPRESSION: Small right effusion with minimal adjacent airspace opacity copyright 2010 [email or web address]- All Rights Reserved Chest X-Ray 05/16/20 00:00 IMPRESSION: Right-sided pleural effusion demonstrates increased volume on toda y's examination. Otherwise stable radiographic appearance of the chest. Chest CT 05/18/20 00:00 IMPRESSION: Right pleural effusion and right lower lobe collapse. No fibrosis. Chest Ultrasound 05/19/20 00:00 IMPRESSION: Loculated small right pleural effusion. Abdomen/Pelvis CT 05/19/20 13:00 IMPRESSION: Multiloculated right pleural effusion with right lower lobe airspace disease. Rim enhancing loculation of fluid in the posterior right costophrenic sulcus abutting the posterior right lobe liver Chest X-Ray 05/20/20 00:00 IMPRESSION: INTERVAL PLACEMENT OF A RIGHT CHEST TUBE. SMALL APICAL PNEUMOTHORAX, LESS THAN 10%. OTHERWISE NO SIGNIFICANT CHANGE. Chest Fluoroscopy 05/21/20 00:00 IMPRESSION: IMAGE(S) OBTAINED DURING PROCEDURE. Chest X-Ray 05/21/20 00:00 IMPRESSION: 1. Right chest tube with proximal port at the level of the chest wall; consider adjustment replacement. 2. Moderate right hydropneumothorax persists. Chest X-Ray 05/21/20 00:00 IMPRESSION: INTERVAL PLACEMENT OF A RIGHT CHEST TUBE WITH IMPROVEMENT IN THE RIGHT PNEUMOTHORAX. Chest X-Ray 05/21/20 00:00 IMPRESSION: IMAGE(S) OBTAINED DURING PROCEDURE. Chest X-Ray 05/21/20 00:00 IMPRESSION: NO ACUTE FINDINGS.Right chest tube appears in stable position.Small residual right pneumothorax. Right basilar consolidation - pleural effusion. Chest X-Ray 05/21/20 11:30 IMPRESSION: Right chest tube has withdrawn with the tip now at the outer edge of the rib margin. Similar right pneumothorax. Similar right basilar consolidation - pleural effusion. Chest X-Ray 05/22/20 00:00 IMPRESSION: Unchanged radiographic appearance of the chest. Chest X-Ray 05/23/20 06:00 IMPRESSION: Right chest tube remains in place. Small to moderate right pleural effusion unchanged. No pneumothorax. IMPRESSION/RECOMMENDATION: 1. Paroxysmal Atrial fibrillation. No patient in is in sinus rhythm.. Continue sotalol. The patient was given a dose of digoxin 0.25 mg IV push. This did not bring the rate down. Hence we will start the patient on Cardizem drip. The patient was started on Cardizem drip at 2.5 mg/h and increased subsequently to 7.5 mg/h. There is no TIA CVA symptoms. Patient is tolerating a higher dose of sotalol without proarrhythmia. And there is no QTc prolongation. 2. Pneumonia: Continue antibiotics continue BiPAP as needed and oxygen supplementation. 3. Right pleural effusion, status post drainage with chest tube, patient developed pneumothorax hence patient for respiratory insertion of chest tube by Dr. Hope. 4 history of hypertension: At present blood pressure on the lower side. 5. History of hemochromatosis: At present does not seem to be any acute problems from this. The patient CT does not show enlarged liver. 6. COVID test code19 test came back negative 7. Obesity. Medications reviewed. Medications added and adjusted. Medical decision making is of high complexity. Medical regimen and management plan discussed with attending.The case. 40 minutes spent on this patient more than 50% of time spe nt in direct patient care. Will follow.
[2020-05-23] MEDS ORDERED: FLUCONAZOLE 100 MG TABLET PO ONE (16:00)
[2020-05-23] MEDS: DILTIAZEM HCL/D5W 125 MG/125 ML RTUINJ IV PRN (20:08)
[2020-05-23] MEDS: ACETAMINOPHEN 325 MG TABLET PO PRN (22:29)
[2020-05-23] MEDS: MELATONIN 5 MG TABLET PO SCH (22:30)
[2020-05-24] MEDS: ONDANSETRON 4 MG TAB.RAPDIS PO PRN (01:17)
[2020-05-24] MEDS: OXYCODONE-ACETAMINOPHEN 5-325 MG TABLET PO PRN ×4 (02:04→20:18)
[2020-05-24] MEDS: PANTOPRAZOLE SODIUM 20 MG TABLET.DR PO SCH (05:14)
[2020-05-24] MEDS: LEVALBUTEROL HCL NEB 1.25 MG/3 ML AMPUL NEB PRN (09:57)
[2020-05-24] MEDS: DOCUSATE SODIUM 100 MG CAPSULE PO SCH ×3 (09:58→17:23)
--- NOTE | 2020-05-24 10:10 | RADIOLOGY REPORT (SQ) ---
EXAM DESCRIPTION: CHEST SINGLE VIEW IMAGES COMPLETED DATE/TIME: 05/24/2020 8:07 am REASON FOR STUDY: eval effusion COMPARISON: 05/23/2020. EXAM PARAMETERS: NUMBER OF VIEWS: One view. TECHNIQUE: Single frontal radiographic view of the chest acquired. RADIATION DOSE: NA LIMITATIONS: None. FINDINGS: LUNGS AND PLEURA: Stable right chest tube. Volume loss on the right side with persistent parenchymal density in the right lung. Right pleural effusion unchanged. 10% apical pneumothorax. Left lung clear. MEDIASTINUM AND HILAR STRUCTURES: No masses. Contour normal. HEART AND VASCULAR STRUCTURES: Heart normal in size. Normal vasculature. BONES: No acute findings. HARDWARE: Stable right chest tube. OTHER: No other significant finding. IMPRESSION: OVERALL NO SIGNIFICANT CHANGE. PERSISTENT DENSITY IN THE RIGHT LUNG AND PERSISTENT RIGH T PLEURAL EFFUSION. SMALL RIGHT PNEUMOTHORAX. TECHNICAL DOCUMENTATION: JOB ID: [id number] 2010 [employer]- All Rights Reserved Reading location - IP/workstation name: [email or web address]
[2020-05-24] MEDS: MAGNESIUM OXIDE 400 MG TABLET PO SCH ×2 (10:13→17:25)
[2020-05-24] MEDS: AMOXICILLIN TR/POT CLAVULANATE 875-125 MG TAB PO SCH ×2 (10:13→22:13)
[2020-05-24] MEDS: HEPARIN SOD (PORCINE) 5,000 UNIT/ML 1 ML VIAL SUBCUT SCH ×2 (10:13→22:12)
[2020-05-24] MEDS: SOTALOL HCL 80 MG TABLET PO SCH ×2 (10:13→22:13)
[2020-05-24] MEDS: ASCORBIC ACID 500 MG TABLET PO SCH (10:13)
[2020-05-24] MEDS: BRIMONIDINE TARTRATE 0.2% OPH SOLN 5 ML OU SCH ×2 (10:15→22:12)
[2020-05-24] MEDS: FLUTICASONE/VILANTEROL 100-25 MCG/DOSE IH SCH (10:15)
[2020-05-24] MEDS: TIMOLOL MALEATE 0.5% OPH SOLN 5 ML OU SCH ×2 (10:16→22:12)
[2020-05-24] MEDS: MAGNESIUM HYDROXIDE SUSP 30 ML UDCUP PO SCH (10:26)
[2020-05-24] MEDS: ALTEPLASE INJ 2 MG VIAL (CATH CLEARANCE) IPL ONE ×2 (11:00→13:12)
[2020-05-24] MEDS ORDERED: DORNASE ALFA NEB 2.5 MG/2.5 ML AMPUL IPL ONE (11:00)
[2020-05-24] MEDS: MORPHINE SULFATE 10 MG/ML INJ IV PRN ×2 (12:01→23:42)
[2020-05-24] MEDS: ONDANSETRON HCL INJ/PF 4 MG/2 ML SDV IV PRN (12:01)
--- NOTE | 2020-05-24 12:33 | PDOC PROGRESS REPORT ---
Subjective Progress Note for:: 05/24/20 Subjective:: Yesterday afternoon patient complained of feeling like she was getting a yeast infection with vaginal pruritus as well as discharge. I did give her a single treatment dose of Diflucan 150 mg p.o. Today, patient feels well. Has some pain in her right chest around the site of the chest tube but otherwise feels well. Denies shortness of breath. Looks comfortable in bed. Reason For Visit: COVID 19,PNEUMONIA Physical Exam Vital Signs: Temp Pulse Resp BP Pulse Ox 97.4 F 103 H 18 120/56 L 99 05/24/20 12:07 05/24/20 12:07 05/24/20 12:07 05/24/20 12:07 05/24/20 12:07 Pulse Oximeter Nocturnal Start: 05/17/20 16:50 Freq: RTQ4 Status: Complete Protocol: Document 05/18/20 05:07 [facility] (Rec: 05/18/20 05:55 [facility] [id number]) Nocturnal Pulse Oximetry Equipment Usage Equipment Discontinued Continuous SpO2 Machine # N-2 Intake & Output 05/23/20 05/24/20 05/25/20 06:59 06:59 06:59 Intake Total 1295 1723 Output Total 49 394 475 Balance 1246 1329 -475 Weight 115.1 kg 116.6 kg General appearance: PRESENT: no acute distress, cooperative Neck exam: ABSENT: JVD Respiratory exam: PRESENT: symmetrical, unlabored. ABSENT: tachypnea, wheezes Cardiovascular exam: PRESENT: +S1, +S2. ABSENT: tachycardia GI/Abdominal exam: PRESENT: hernia - reducible, soft, tenderness. ABSENT: distended, firm, guarding, rebound, rigid Neurological exam: PRESENT: alert, awake, oriented to person, oriented to place, oriented to time Psychiatric exam: ABSENT: agitated, anxious Results Laboratory Results: 05/20/20 05:14 05/20/20 05:14 05/19/20 15:55 Pleural Fluid Gram Stain - Final 05/19/20 15:55 Pleural Fluid Body Fluid Culture - Final NO AEROBIC OR ANAEROBIC ORGANISMS RECOVERED 05/13/20 02:15 Troponin I < 0.012 Impressions: Chest CT 05/18/20 00:00 IMPRESSION: Right pleural effusion and right lower lobe collapse. No fibrosis. Chest Ultrasound 05/19/20 00:00 IMPRESSION: Loculated small right pleural effusion. Abdomen/Pelvis CT 05/19/20 13:00 IMPRESSION: Multiloculated right pleural effusion with right lower lobe airspace disease. Rim enhancing loculation of fluid in the posterior right costophrenic sulcus abutting the posterior right lobe liver Chest Fluoroscopy 05/21/20 00:00 IMPRESSION: IMAGE(S) OBTAINED DURING PROCEDURE. Chest X-Ray 05/24/20 06:00 IMPRESSION: OVERALL NO SIGNIFICANT CHANGE. PERSISTENT DENSITY IN THE RIGHT LUNG AND PERSISTENT RIGHT PLEURAL EFFUSION. SMALL RIGHT PNEUMOTHORAX. Assessment and Plan - Diagnosis (1) Loculated pleural effusion Is this a current diagnosis for this admission?: Yes Plan: Complicated right parapneumonic with multiple loculations on CT. pH on pleural fluid is misleading as sample was collected after alteplase and d ornase had been administered. However, no rey growth on stain/culture nor purulence to suggest empyema. Continue Augmentin. Will need 2 to 3 weeks total of antibiotics. Chest tube placed 05/20 and drained nicely but dislodged. 2nd posterior chest tube also dislodged on 05/21 and removed. Currently, patient has anterior chest tube. TPA/dornase augusto being administered by Dr. Lovett (day 3/3 doses so far). Plan for repeat CAT scan tomorrow to reevaluate loculations.... If this fails, next step will be tertiary transfer for VATS. (2) Acute respiratory failure with hypoxia Is this a current diagnosis for this admission?: Yes Plan: Likely secondary to pneumonia, compressive atelectasis and loculated pleural effusion. wean nasal cannula today. (3) Pneumothorax, right Is this a current diagnosis for this admission?: Yes Plan: Secondary to chest tube placement. Minimal. (4) Abdominal visceral abscess Is this a current diagnosis for this admission?: Yes Plan: Abdominal CT did also supervisor picking crew a small [id number] rim-enhancing lesion which could represent small abscess noted next to the right liver lobe. I discussed with the radiologist who confirmed that this lesion is likely not in the right pleura and likely in the abdomen but is quite small and may or may not represent an actual abscess. After discussion, plan was to first drain the loculated pleural effusions and continue Augmentin and then reimage the abdomen to see if any progression of this questionable abscess. Fevers remain resolved. (5) Community acquired pneumonia Qualifiers: Laterality: right Lung location: lower lobe of lung Qualified Code(s): J18.9 - Pneumonia, unspecified organism Is this a current diagnosis for this admission?: Yes Plan: Fevers and leukocytosis have resolved. Completed 5 days of azithromycin and ceftriaxone. (6) Permanent atrial fibrillation Is this a current diagnosis for this admission?: Yes Plan: Heart rate controlled today. Still on sotalol. Dr. Morales recommends continuing diltiazem drip at 7.5 until lung issues have been addressed. Xarelto remains on hold. SQ Heparin in the meantime. Monitor on telemetry. (7) Hemochromatosis Qualifiers: Hemochromatosis type: unspecified Qualified Code(s): E83.119 - Hemochromatosis, unspecified Is this a current diagnosis for this admission?: Yes Plan: Patient has history of hemochromatosis and does have hepatomegaly. However currently abdominal CT shows significant improvement in fatty liver disease and iron saturation is actually not high at this point. (8) Osteoarthritis of knees, bilateral Qualifiers: Osteoarthritis type: primary Qualified Code(s): M17.0 - Bilateral primary osteoarthritis of knee Is this a current diagnosis for this admission?: Yes Plan: Patient has significant ambulatory dysfunction. She admits to history of [id number] osteoarthritis in her knees which limits ambulation. Gets around with a walker at home but only typically able to ambulate very short distances within the apartment. Her obesity is contributing to this problem. She is more amenable to SNF at this point if she continues not to show much improvement by the time of discharge. - Time Anticipated Discharge Disposition: undetermined Anticipated Discharge Timeframe: within 48 hours
--- NOTE | 2020-05-24 13:25 | PDOC PROGRESS REPORT ---
Subjective Progress Note for:: 05/24/20 Subjective:: 70-year-old female with a loculated parapneumonic effusion. Patient reports continued chest pain today, likely related to her tube thoracostomy. Her chest tube is draining a large amount of serosanguinous fluid. She denies shortness of breath today. She denies abdominal pain, nausea, vomiting, dizziness, melena, hematochezia, hematemesis, headache, blurry vision. Reason For Visit: COVID 19,PNEUMONIA Physical Exam Vital Signs: Temp Pulse Resp BP Pulse Ox 97.4 F 103 H 18 120/56 L 99 05/24/20 12:07 05/24/20 12:07 05/24/20 12:07 05/24/20 12:07 05/24/20 12:07 Pulse Oximeter Nocturnal Start: 05/17/20 16:50 Freq: RTQ4 Status: Complete Protocol: Document 05/18/20 05:07 [facility] (Rec: 05/18/20 05:55 [facility] [id number]) Nocturnal Pulse Oximetry Equipment Usage Equipment Discontinued Continuous SpO2 Machine # N-2 Intake & Output 05/23/20 05/24/20 05/25/20 06:59 06:59 06:59 Intake Total 1295 1723 480 Output Total 49 394 475 Balance 1246 1329 5 Weight 115.1 kg 116.6 kg Results Laboratory Results: 05/20/20 05:14 05/20/20 05:14 05/19/20 15:55 Pleural Fluid Gram Stain - Final 05/19/20 15:55 Pleural Fluid Body Fluid Culture - Final NO AEROBIC OR ANAEROBIC ORGANISMS RECOVERED 05/13/20 02:15 Troponin I < 0.012 Impressions: Chest CT 05/18/20 00:00 IMPRESSION: Right pleural effusion and right lower lobe collapse. No fibrosis. Chest Ultrasound 05/19/20 00:00 IMPRESSION: Loculated small right pleural effusion. Abdomen/Pelvis CT 05/19/20 13:00 IMPRESSION: Multiloculated right pleural effusion with right lower lobe airspace disease. Rim enhancing loculation of fluid in the posterior right costophrenic sulcus abutting the posterior right lobe liver Chest Fluoroscopy 05/21/20 00:00 IMPRESSION: IMAGE(S) OBTAINED DURING PROCEDURE. Chest X-Ray 05/24/20 06:00 IMPRESSION: OVERALL NO SIGNIFICANT CHANGE. PERSISTENT DENSITY IN THE RIGHT LUNG AND PERSISTENT RIGHT PLEURAL EFFUSION. SMALL RIGHT PNEUMOTHORAX. Assessment & Plan - Diagnosis (1) Community acquired pneumonia Qualifiers: Laterality: right Lung location: lower lobe of lung Qualified Code(s): J18.9 - Pneumonia, unspecified organism Is this a current diagnosis for this admission?: Yes (2) Loculated pleural effusion Is this a current diagnosis for this admission?: Yes (3) Obesity Qualifiers: Obesity type: unspecified obesity type Obesity classification: adult class 2 (BMI 35 - 39.9) Serious obesity comorbidity presence: with serious comorbidity Body mass index: BMI 39.0-39.9 Qualified Code(s): E66.01 - Morbid (severe) obesity due to excess calories; Z68.39 - Body mass index (BMI) 39.0-39.9, adult Is this a current diagnosis for this admission?: Yes - Time Anticipated Discharge Disposition: unknown Anticipated Discharge Timeframe: unknown - Plan Summary Plan Summary: 70-year-old female with a loculated parapneumonic effusion. The chest tube has been draining serosanguineous fluid. Cathflo was used yesterday. Plan for readministration of 6 mg of Cathflo with 5 mg of dornase alpha again today. Will clamp chest tube for 4 hours, then allowed to drain. Repeat chest CT today or tomorrow. Surgery will continue to follow with you.
[2020-05-24] MEDS: DILTIAZEM HCL/D5W 125 MG/125 ML RTUINJ IV PRN (16:27)
--- NOTE | 2020-05-24 16:28 | Progress Note ---
Provider Note Provider Note: CARDIOLOGY PROGRESS NOTE by Dr. Dominic Quezada on 05/24/2020. SUBJECTIVE: The patient shortness of breath is improved. She has chest wall pain at the site of chest tube insertion. She remains in sinus rhythm. She has no anginal symptoms. There is no leg edema. There is no PND orthopnea. There is no pleural arrhythmias on sotalol. THE patient is morbidly obese. In no acute distress. Selected Entries 05/24/20 16:00 Temperature 97.8 F Temperature Oral Source Pulse Rate 106 H Respiratory 18 Rate Blood Pressure 110/90 H Blood Pressure 98/65 L [Upper Arm] Blood Pressure 76 Mean [Upper Arm ] O2 Sat by Pulse 98 Oximetry Oxygen Delivery Nasal Cannula Method ( includes room air) Oxygen Flow 1.00 Rate HEAD: Is atraumatic normocephalic. PUPILS are equal round regular reactive to light accommodation extraocular movements are normal. There is no conjunctival pallor. There is no scleral icterus. ENT is negative note patient is on BiPAP. NECK: Supple. There is no JVD. Carotids are equal there is no bruits. There is no lymphadenopathy. There is no goiter. There is no accessory muscle respiration use. Trachea central. LUNGS: There is a chest tube on the right side. There is some degree of subcutaneous crepitus. Lung sounds diminished in the right base.. There is no rales of CHF. HEART: S1-S2 is heard. S1 is of variable intensity. The patient is tachycardic. There is systolic murmur left sternal border and the apex there is no rub. ABDOMEN: Is obese. Nontender there is no hepatosplenomegaly. Bowel sounds are well heard. There is no tender areas masses. EXTREMITIES: Femorals are deep. There is no femoral bruits. Leg pulses are well felt. There is no pedal edema. There is no DVT or cellulitis. There is no cyanosis or clubbing. 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 PSYCHIATRIC: In spite of her drowsiness the patient judgment insight are intact and affect is normal. Chest X-Ray 05/13/20 03:03 IMPRESSION: Small right effusion with minimal adjacent airspace opacity copyright 2011 [employer]- All Rights Reserved Chest X-Ray 05/16/20 00:00 IMPRESSION: Right-sided pleural effusion demonstrates increased volume on today's examination. Otherwise stable radiographic appearance of the chest. Chest CT 05/18/20 00:00 IMPRESSION: Right pleural effusion and right lower lobe collapse. No fibrosis. Chest Ultrasound 05/19/20 00:00 IMPRESSION: Loculated small right pleural effusion. Abdomen/Pelvis CT 05/19/20 13:00 IMPRESSION: Multiloculated right pleural effusion with right lower lobe airspace disease. Rim enhancing loculation of fluid in the posterior right costophrenic sulcus abutting the posterior right lobe liver Chest X-Ray 05/20/20 00:00 IMPRESSION: INTERVAL PLACEMENT OF A RIGHT CHEST TUBE. SMALL APICAL PNEUMOTHORAX, LESS THAN 10%. OTHERWISE NO SIGNIFICANT CHANGE. Chest Fluoroscopy 05/21/20 00:00 IMPRESSION: IMAGE(S) OBTAINED DURING PROCEDURE. Chest X-Ray 05/21/20 00:00 IMPRESSION: 1. Right chest tube with proximal port at the level of the chest wall; consider adjustment replacement. 2. Moderate right hydropneumothorax persists. Chest X-Ray 05/21/20 00:00 IMPRESSION: INTERVAL PLACEMENT OF A RIGHT CHEST TUBE WITH IMPROVEMENT IN THE RIGHT PNEUMOTHORAX. Chest X-Ray 05/21/20 00:00 IMPRESSION: IMAGE(S) OBTAINED DURING PROCEDURE. Chest X-Ray 05/21/20 00:00 IMPRESSION: NO ACUTE FINDINGS.Right chest tube appears in stable position.Small residual right pneumothorax. Right basilar consolidation - pleural effusion. Chest X-Ray 05/21/20 11:30 IMPRESSION: Right chest tube has withdrawn with the tip now at the outer edge of the rib margin. Similar right pneumothorax. Similar right basilar consolidation - pleural effusion. Chest X-Ray 05/22/20 00:00 IMPRESSION: Unchanged radiographic appearance of the chest. Chest X-Ray 05/23/20 06:00 IMPRESSION: Right chest tube remains in place. Small to moderate right pleural effusion unchanged. No pneumothorax. Chest X-Ray 05/24/20 06:00 IMPRESSION: OVERALL NO SIGNIFICANT CHANGE. PERSISTENT DENSITY IN THE RIGHT LUNG AND PERSISTENT RIGHT PLEURAL EFFUSION. SMALL RIGHT PNEUMOTHORAX. IMPRESSION/RECOMMENDATION: 1. Paroxysmal Atrial fibrillation. 2. Pneumonia: Continue antibiotics continue BiPAP as needed and oxygen supplementation. 3. Right pleural effusion, status post drainage with chest tube, patient developed pneumothorax hence patient for repeat insertion of chest tube. 4 history of hypertension: At present blood pressure on the lower side. 5. History of hemochromatosis: At present does not seem to be any acute problems from this. The patient CT does not show enlarged liver. 6. COVID test code19 test came back negative 7. Obesity. Medications reviewed. Medications added and adjusted. Medical decision making is of moderate complexity. Medical regimen and management plan discussed with attending.The case. 40 minutes spent on this patient more than 50% of time spent in direct patient care. Will follow.
[2020-05-24] MEDS: PHENAZOPYRIDINE HCL 200 MG TABLET PO PRN (22:13)
[2020-05-24] MEDS: MELATONIN 5 MG TABLET PO SCH (22:13)
[2020-05-25] MEDS: OXYCODONE-ACETAMINOPHEN 5-325 MG TABLET PO PRN ×3 (04:03→15:55)
[2020-05-25 05:53] LABS: ABSOLUTE BASOPHILS # (AUTO) 0.1 10^3/uL (0.0-0.2); ABSOLUTE EOSINOPHILS # (AUTO) 0.1 10^3/uL (0.0-0.6); ABSOLUTE LYMPHOCYTES (AUTO) 1.1 10^3/uL (0.5-4.7); ABSOLUTE MONOCYTES (AUTO) 0.9 10^3/uL (0.1-1.4); ABSOLUTE NEUT (AUTO) 5.3 10^3/uL (1.7-8.2); BASOPHILS % (AUTO) 0.8 % (0-2); EOSINOPHILS % (AUTO) 1.5 % (0-6); HEMATOCRIT 30.9 % (36.0-47.0); HEMOGLOBIN 10.2 g/dL (12.0-15.5); LYMPHOCYTES % (AUTO) 15.3 % (13-45); MEAN CORPUSCULAR HEMOGLOBIN 28.8 pg (27.0-33.4); MEAN CORPUSCULAR HGB CONC 32.9 g/dL (32.0-36.0); MEAN CORPUSCULAR VOLUME 88 fl (80-97); MONOCYTES % (AUTO) 11.6 % (3-13); PLATELET COUNT 464 10^3/uL (150-450); RED BLOOD COUNT 3.53 10^6/uL (3.72-5.28); RED CELL DISTRIBUTION WIDTH 17.7 % (11.5-14.0); SEGMENTED NEUTROPHILS % (AUTO) 70.8 % (42-78); TOTAL CELLS COUNTED % (AUTO) 100 %; WHITE BLOOD COUNT 7.4 10^3/uL (4.0-10.5)
[2020-05-25] MEDS: PANTOPRAZOLE SODIUM 20 MG TABLET.DR PO SCH (05:56)
[2020-05-25 06:13] LABS: BLOOD UREA NITROGEN 7 mg/dL (7-20); CALCIUM 8.7 mg/dL (8.4-10.2); CHLORIDE 96 mmol/L (98-107); GLUCOSE 111 mg/dL (75-110); POTASSIUM 4.7 mmol/L (3.6-5.0)
[2020-05-25 06:19] LABS: CARBON DIOXIDE 36 mmol/L (22-30)
[2020-05-25 06:22] LABS: ANION GAP 6 (5-19)
[2020-05-25] MEDS: SOTALOL HCL 80 MG TABLET PO SCH ×2 (09:54→22:25)
[2020-05-25] MEDS: DOCUSATE SODIUM 100 MG CAPSULE PO SCH ×2 (09:56→18:07)
[2020-05-25] MEDS: MAGNESIUM OXIDE 400 MG TABLET PO SCH ×2 (09:56→18:07)
[2020-05-25] MEDS: AMOXICILLIN TR/POT CLAVULANATE 875-125 MG TAB PO SCH ×2 (09:56→22:25)
[2020-05-25] MEDS: TIMOLOL MALEATE 0.5% OPH SOLN 5 ML OU SCH ×2 (09:57→22:26)
[2020-05-25] MEDS: HEPARIN SOD (PORCINE) 5,000 UNIT/ML 1 ML VIAL SUBCUT SCH ×2 (09:57→22:25)
[2020-05-25] MEDS: FLUTICASONE/VILANTEROL 100-25 MCG/DOSE IH SCH (10:01)
[2020-05-25] MEDS: BRIMONIDINE TARTRATE 0.2% OPH SOLN 5 ML OU SCH ×2 (10:08→22:26)
[2020-05-25] MEDS: LEVALBUTEROL HCL NEB 1.25 MG/3 ML AMPUL NEB PRN ×2 (11:39→20:40)
--- NOTE | 2020-05-25 12:05 | RADIOLOGY REPORT (SQ) ---
EXAM DESCRIPTION: CT CHEST WITH IMAGES COMPLETED DATE/TIME: 05/25/2020 11:04 am REASON FOR STUDY: re-eval pleural effusion COMPARISON: 05/24/2020 and 05/18/2020 TECHNIQUE: CT scan of the chest performed using helical scanning technique with dynamic intravenous contrast injection. Images reviewed with lung, soft tissue and bone windows. Reconstructed coronal and sagittal MPR and MIP images reviewed. All images stored on PACS. All CT scanners at this facility use dose modulation, iterative reconstruction, and/or weight based d osing when appropriate to reduce radiation dose to as low as reasonably achievable (ALARA). [facility]: Dose Right [facility]: CareDose [facility]: Dose Right [facility]: Teradose 4D [facility]: Sincuru CONTRAST TYPE AND DOSE: contrast/concentration: Isovue 350.00 mmol/ml; Total Contrast Delivered: 80. 0 ml; Total Saline Delivered: 19.8 ml RENAL FUNCTION: BUN 5; creatinine 0.30 RADIATION DOSE: CT Rad equipment meets quality standard of care and radiation dose reduction techniq ues were employed. CTDIvol: 18.3 mGy. DLP: 613 mGy-cm. . LIMITATIONS: None. FINDINGS: LUNGS AND PLEURA: Interval decrease in volume of a previously characterized right hemithor ax pleural effusion with compressive atelectasis of the adjacent lung parenchyma. A tiny right apica l pneumothorax is present. HILAR AND MEDIASTINAL STRUCTURES: Scattered prominent mediastinal lymph nodes measure up to 1.9 cm in the short axis (pretracheal axial image 20) HEART AND VASCULAR STRUCTURES: Ectatic appearing ascending aorta. No pericardial effusion. HARDWARE: Right hemithorax chest tube with associated subcutaneous emphysema and subcutaneous fat str anding. UPPER ABDOMEN: Limited examination. There is a partially imaged fluid collection posterior to the ri ght hepatic lobe, measuring 6.2 x 1.9 cm in axial dimension. Incidental note is made of partially im aged pneumobilia. Background of hepatic steatosis. Nonobstructing nephrolith on the left. THYROID AND OTHER SOFT TISSUES: No masses. No adenopathy. BONES: No significant finding. OTHER: No other significant finding. IMPRESSION: 1. Right hemithorax chest tube with diminished volume of a previously characterized rig ht-sided pleural effusion which appears to be partially loculated. A tiny right apical pneumothorax is demonstrated. 2. Limited evaluation of the upper abdomen demonstrates a partially imaged fluid collection adjacent to the right hepatic lobe and the appearance of pneumobilia. Other chronic and incidental findings as detailed above. TECHNICAL DOCUMENTATION: JOB ID: [id number] Quality ID # [id number]: Final reports with documentation of one or more dose reduction techniques (e.g., Au tomated exposure control, adjustment of the mA and/or kV according to patient size, use of iterative reconstruction technique) 2010 [employer]- All Rights Reserved Reading location - IP/workstation name: [email or web address]
--- NOTE | 2020-05-25 12:41 | PDOC PROGRESS REPORT ---
Subjective Progress Note for:: 05/25/20 Subjective:: 70-year-old female with a loculated parapneumonic effusion. Patient reports continued chest pain today, likely related to her tube thoracostomy. Her chest tube is draining a large amount of serosanguinous fluid. She denies shortness of breath today. She denies abdominal pain, nausea, vomiting, dizziness, melena, hematochezia, hematemesis, headache, blurry vision. Reason For Visit: COVID 19,PNEUMONIA Physical Exam Vital Signs: Temp Pulse Resp BP Pulse Ox 97.3 F 80 16 96/46 L 97 05/25/20 08:06 05/25/20 11:39 05/25/20 11:39 05/25/20 11:00 05/25/20 11:39 Pulse Oximeter Nocturnal Start: 05/17/20 16:50 Freq: RTQ4 Status: Complete Protocol: Document 05/18/20 05:07 [facility] (Rec: 05/18/20 05:55 [facility] [id number]) Nocturnal Pulse Oximetry Equipment Usage Equipment Discontinued Continuous SpO2 Machine # N-[id number] Intake & Output 05/24/20 05/25/20 05/26/20 06:59 06:59 06:59 Intake Total 1723 1376 474 Output Total 394 1415 Balance 1329 -39 474 Weight 116.6 kg 116.5 kg Exam: General appearance: PRESENT: no acute distress, obese Head exam: PRESENT: atraumatic, normocephalic Eye exam: PRESENT: EOMI, PERRLA. ABSENT: scleral icterus Mouth exam: PRESENT: moist, neck supple Neck exam: ABSENT: meningismus, tenderness, thyromegaly, tracheal deviation Respiratory exam: PRESENT: unlabored, other - Chest tube in place. Serosanguineous output. No air leak. Currently to waterseal.. ABSENT: tachypnea Cardiovascular exam: ABSENT: tachycardia GI/Abdominal exam: PRESENT: soft. ABSENT: distended, firm, tenderness Rectal exam: PRESENT: deferred Extremities exam: ABSENT: clubbing Musculoskeletal exam: ABSENT: deformity Neurological exam: PRESENT: alert, awake, oriented to person, oriented to place, oriented to time, oriented to situation Psychiatric exam: ABSENT: agitated, anxious, depressed Focused psych exam: ABSENT: delusional Skin exam: ABSENT: cyanosis, erythema, jaundice Results Laboratory Results: 05/25/20 05:39 05/25/20 05:39 05/25/20 05/25/20 05:39 05:39 WBC 7.4 RBC 3.53 L Hgb 10.2 L Hct 30.9 L MCV 88 MCH 28.8 MCHC 32.9 RDW 17.7 H Plt Count 464 H Seg Neutrophils % 70.8 Sodium 137.6 Potassium 4.7 Chloride 96 L Carbon Dioxide 36 H Anion Gap 6 BUN 7 Creatinine 0.41 L Est GFR ( Amer) > 60 Glucose 111 H Calcium 8.7 Magnesium 1.8 05/19/20 15:55 Pleural Fluid Gram Stain - Final 05/19/20 15:55 Pleural Fluid Body Fluid Culture - Final NO AEROBIC OR ANAEROBIC ORGANISMS RECOVERED 05/13/20 02:15 Troponin I < 0.012 Impressions: Chest Ultrasound 05/19/20 00:00 IMPRESSION: Loculated small right pleural effusion. Abdomen/Pelvis CT 05/19/20 13:00 IMPRESSION: Multiloculated right pleural effusion with right lower lobe airspace disease. Rim enhancing loculation of fluid in the posterior right costophrenic sulcus abutting the posterior right lobe liver Chest Fluoroscopy 05/21/20 00:00 IMPRESSION: IMAGE(S) OBTAINED DURING PROCEDURE. Chest CT 05/24/20 00:00 IMPRESSION: 1. Right hemithorax chest tube with diminished volume of a previously characterized right-sided pleural effusion which appears to be partially loculated. A tiny right apical pneumothorax is demonstrated. 2. Limited evaluation of the upper abdomen demonstrates a partially imaged fluid collection adjacent to the right hepatic lobe and the appearance of pneumobilia. Other chronic and incidental findings as detailed above. Chest X-Ray 05/24/20 06:00 IMPRESSION: OVERALL NO SIGNIFICANT CHANGE. PERSISTENT DENSITY IN THE RIGHT LUNG AND PERSISTENT RIGHT PLEURAL EFFUSION. SMALL RIGHT PNEUMOTHORAX. Assessment & Plan - Diagnosis (1) Community acquired pneumonia Qualifiers: Laterality: right Lung location: lower lobe of lung Qualified Code(s): J18.9 - Pneumonia, unspecified organism Is this a current diagnosis for this admission?: Yes (2) Loculated pleural effusion Is this a current diagnosis for this admission?: Yes (3) Obesity Qualifiers: Obesity type: unspecified obesity type Obesity classification: adult class 2 (BMI 35 - 39.9) Serious obesity comorbidity presence: with serious comorbidity Body mass index: BMI 39.0-39.9 Qualified Code(s): E66.01 - Morbid (severe) obesity due to excess calories; Z68.39 - Body mass index [BMI] 39.0-39.9, adult Is this a current diagnosis for this admission?: Yes - Time Anticipated Discharge Disposition: unknown Anticipated Discharge Timeframe: unknown - Plan Summary Plan Summary: 70-year-old female with a loculated parapneumonic effusion. The chest tube has been draining serosanguineous fluid. Cathflo was used again yesterday. I have reviewed the patient's recent CT scan. The size of the pleural effusion is much improved. There is one area in the posterior lateral position that remains undrained. I have discussed the case with radiology. They are willing to aspirate this area, in an attempt to avoid transfer of the patient. Plan for CT-guided drainage of the small remaining pocket of pleural fluid. Leave anterior chest tube in place for now. Surgery will continue to follow with you.
[2020-05-25] MEDS ORDERED: INFLUENZA QUAD (6MOS+) 2020-21 VAC 0.5 ML SYR IM ONE (13:00)
--- NOTE | 2020-05-25 14:22 | PDOC PROGRESS REPORT ---
Subjective Progress Note for:: 05/25/20 Subjective:: 70-year-old female with a loculated parapneumonic effusion. She appears to be comfortable in bed. She said she does not really get up from bed. She is still on Cardizem drip however she did convert to sinus rhythm today. Dr. Morales suggest to still leave her on the Cardizem drip at 5 mg/h. She is also on sotalol. Evaluation by Dr. Lovett today suggest that the size of the effusion is improving and although there remains a posterolateral position fluid collect ion this is going to be attempted to be drained by dimensional radiologist. Reason For Visit: COVID 19,PNEUMONIA Physical Exam Vital Signs: Temp Pulse Resp BP Pulse Ox 97.3 F 80 16 96/46 L 97 05/25/20 08:06 05/25/20 11:39 05/25/20 11:39 05/25/20 11:00 05/25/20 11:39 Pulse Oximeter Nocturnal Start: 05/17/20 16:50 Freq: RTQ4 Status: Complete Protocol: Document 05/18/20 05:07 [facility] (Rec: 05/18/20 05:55 [facility] [id number]) Nocturnal Pulse Oximetry Equipment Usage Equipment Discontinued Continuous SpO2 Machine # N-2 Intake & Output 05/24/20 05/25/20 05/26/20 06:59 06:59 06:59 Intake Total 1723 1376 474 Output Total 394 1415 Balance 1329 -39 474 Weight 116.6 kg 116.5 kg General appearance: PRESENT: no acute distress, morbidly obese, well-nourished Head exam: PRESENT: atraumatic, normocephalic Eye exam: PRESENT: conjunctiva pink, EOMI, PERRLA. ABSENT: scleral icterus Mouth exam: PRESENT: moist, tongue midline Neck exam: ABSENT: carotid bruit, JVD, lymphadenopathy, thyromegaly Respiratory exam: PRESENT: other - Chest tube with bloody drainage in the right pleural space. ABSENT: rales, rhonchi, wheezes Cardiovascular exam: PRESENT: RRR. ABSENT: diastolic murmur, rubs, systolic murmur Pulses: PRESENT: normal dorsalis pedis pul Vascular exam: PRESENT: normal capillary refill GI/Abdominal exam: PRESENT: normal bowel sounds, soft. ABSENT: distended, guarding, mass, organolmegaly, rebound, tenderness Rectal exam: PRESENT: deferred Extremities exam: PRESENT: full ROM. ABSENT: calf tenderness, clubbing, pedal edema Neurological exam: PRESENT: alert, awake, oriented to person, oriented to place, oriented to time, oriented to situation, CN II-XII grossly intact. ABSENT: motor sensory deficit Psychiatric exam: PRESENT: appropriate affect. ABSENT: homicidal ideation, suicidal ideation Skin exam: PRESENT: intact, warm. ABSENT: cyanosis, rash Results Laboratory Results: 05/25/20 05:39 05/25/20 05:39 05/25/20 05/25/20 05:39 05:39 WBC 7.4 RBC 3.53 L Hgb 10.2 L Hct 30.9 L MCV 88 MCH 28.8 MCHC 32.9 RDW 17.7 H Plt Count 464 H Seg Neutrophils % 70.8 Sodium 137.6 Potassium 4.7 Chloride 96 L Carbon Dioxide 36 H Anion Gap 6 BUN 7 Creatinine 0.41 L Est GFR ( Amer) > 60 Glucose 111 H Calcium 8.7 Magnesium 1.8 05/13/20 02:15 Troponin I < 0.012 Impressions: Chest Ultrasound 05/19/20 00:00 IMPRESSION: Loculated small right pleural effusion. Abdomen/Pelvis CT 05/19/20 13:00 IMPRESSION: Multiloculated right pleural effusion with right lower lobe airspace disease. Rim enhancing loculation of fluid in the posterior right costophrenic sulcus abutting the posterior right lobe liver Chest Fluoroscopy 05/21/20 00:00 IMPRESSION: IMAGE(S) OBTAINED DURING PROCEDURE. Chest CT 05/24/20 00:00 IMPRESSION: 1. Right hemithorax chest tube with diminished volume of a previously characterized right-sided pleural effusion which appears to be par tially loculated. A tiny right apical pneumothorax is demonstrated. 2. Limited evaluation of the upper abdomen demonstrates a partially imaged fluid collection adjacent to the right hepatic lobe and the appearance of pneumobilia. Other chronic and incidental findings as detailed above. Chest X-Ray 05/24/20 06:00 IMPRESSION: OVERALL NO SIGNIFICANT CHANGE. PERSISTENT DENSITY IN THE RIGHT LUNG AND PERSISTENT RIGHT PLEURAL EFFUSION. SMALL RIGHT PNEUMOTHORAX. 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 I discussed with the radiologist who confirmed that this lesion is likely not in the right pleura and likely in the abdomen but is quite small and may or may not represent an actual abscess. After discussion, plan was to first drain the loculated pleural effusions and continue Augmentin and then reimage the abdomen to see if any progression of this questionable abscess. Fevers remain resolved. 05/25 Plan as above (2) Community acquired pneumonia Qualifiers: Laterality: right Lung location: lower lobe of lung Qualified Code(s): J18.9 - Pneumonia, unspecified organism Is this a current diagnosis for this admission?: Yes Plan: Fevers and leukocytosis have resolved. Completed 5 days of azithromycin and ceftriaxone. (3) Loculated pleural effusion Is this a current diagnosis for this admission?: Yes Plan: Complicated right parapneumonic with multiple loculations on CT. pH on pleural fluid is misleading as sample was collected after alteplase and dornase had been administered. However, no rey growth on stain/culture nor purulence to suggest empyema. Continue Augmentin. Will need 2 to 3 weeks total of antibiotics. Chest tube placed 05/20 and drained nicely but dislodged. 2nd posterior chest tube also dislodged on 05/21 and removed. Currently, patient has anterior chest tube. TPA/dornase augusto being administered by Dr. Lovett (day 3/3 doses so far). Plan for repeat CAT scan tomorrow to reevaluate loculations.... If this fails, next step will be tertiary transfer for VATS. 05/[address] Lovett. No indication for transfer to a tertiary center at this time as effusion appears to be resolving (4) Obesity (BMI 30-39.9) Is this a current diagnosis for this admission?: Yes Plan: She states she has done sleep study in the past but was never diagnosed with sleep apnea. Does not use any NIPPV at home. She was certainly benefit from outpatient sleep study upon discharge. (5) Permanent atrial fibrillation Is this a current diagnosis for this admission?: Yes Plan: Heart rate controlled today. Still on sotalol. Dr. Morales recommends continuing diltiazem drip at 7.5 until lung issues have been addressed. Xarelto remains on hold. SQ Heparin in the meantime. Monitor on telemetry. 05/25 Cardizem drip to be continued as per cardiology recommendation (6) Pneumothorax, right Is this a current diagnosis for this admission?: Yes Plan: Secondary to chest tube placement. Minimal. Resolving - Time Time Spent with patient: 15-24 minutes Medications reviewed and adjusted accordingly: Yes Anticipated Discharge Disposition: [facility] Anticipated Discharge Timeframe: within 72 hours
[2020-05-25] MEDS: DILTIAZEM HCL/D5W 125 MG/125 ML RTUINJ IV PRN (16:30)
[2020-05-25] MEDS: MORPHINE SULFATE 10 MG/ML INJ IV PRN (20:04)
[2020-05-25] MEDS: ONDANSETRON 4 MG TAB.RAPDIS PO PRN (20:08)
--- NOTE | 2020-05-25 22:00 | Progress Note ---
Provider Note Provider Note: CARDIOLOGY PROGRESS NOTE by Dr. Dominic Quezada on 05/25/2020. SUBJECTIVE: The patient shortness of breath is improved. She has chest wall pain at the site of chest tube insertion. She remains in sinus rhythm. She has no anginal symptoms. There is no leg edema. There is no PND orthopnea. There is no pleural arrhythmias on sotalol. PHYSICAL EXAMINATION: THE patient is morbidly obese. In no acute distress. Selected Entries 05/25/20 05/25/20 08:06 09:00 Temperature 97.3 F Temperature Oral Source Pulse Rate 85 Respiratory 18 Rate Blood Pressure 105/50 L 104/53 L Blood Pressure 68 Mean BP Location Left Arm BP Position Sitting O2 Sat by Pulse 97 Oximetry Oxygen Flow 0.50 Rate Oxygen Delivery Nasal Cannula Method HEAD: Is atraumatic normocephalic. PUPILS are equal round regular reactive to light accommodation extraocular movements are normal. There is no conjunctival pallor. There is no scleral icterus. ENT is negative note patient is on BiPAP. NECK: Supple. There is no JVD. Carotids are equal there is no bruits. There is no lymphadenopathy. There is no goiter. There is no accessory muscle respiration use. Trachea central. LUNGS: There is a chest tube on the right side. There is some degree of subcutaneous crepitus. Lung sounds diminished in the right base.. There is no rales of CHF. HEART: S1-S2 is heard. S1 is of variable intensity. The patient is tachycardic. There is systolic murmur left sternal border and the apex there is no rub. ABDOMEN: Is obese. Nontender there is no hepatosplenomegaly. Bowel sounds are well heard. There is no tender areas masses. EXTREMITIES: Femorals are deep. There is no femoral bruits. Leg pulses are well felt. There is no pedal edema. There is no DVT or cellulitis. There is no cyanosis or clubbing. NON DESTRUCTIVE EVALUATION MANAGER: The patient is drowsy but without any focal deficits. PSYCHIATRIC: In spite of her drowsiness the patient judgment insight are intact and affect is normal. Labs- All tests 24 hr 05/25/20 05/25/20 05:39 05:39 WBC 7.4 RBC 3.53 L Hgb 10.2 L Hct 30.9 L MCV 88 MCH 28.8 MCHC 32.9 RDW 17.7 H Plt Count 464 H Lymph % (Auto) 15.3 [place] % (Auto) 11.6 Eos % (Auto) 1.5 Baso % (Auto) 0.8 Absolute Neuts (auto) 5.3 Absolute Lymphs (auto) 1.1 Absolute Monos (auto) 0.9 Absolute Eos (auto) 0.1 Absolute Basos (auto) 0.1 Seg Neutrophils % 70.8 Sodium 137.6 Potassium 4.7 Chloride 96 L Carbon Dioxide 36 H Anion Gap 6 BUN 7 Creatinine 0.41 L Est GFR ( Amer) > 60 Est GFR (MDRD) Non-Af > 60 Glucose 111 H Calcium 8.7 Magnesium 1.8 Chest X-Ray 05/13/20 03:03 IMPRESSION: Small right effusion with minimal adjacent airspace opacity copyright 2010 [employer]- All Rights Reserved Chest X-Ray 05/16/20 00:00 IMPRESSION: Right-sided pleural effusion demonstrates increased volume on today's examination. Otherwise stable radiographic appearance of the chest. Chest CT 05/18/20 00:00 IMPRESSION: Right pleural effusion and right lower lobe collapse. No fibrosis. Chest Ultrasound 05/19/20 00:00 IMPRESSION: Loculated small right pleural effusion. Abdomen/Pelvis CT 05/19/20 13:00 IMPRESSION: Multiloculated right pleural effusion with right lower lobe airspace disease. Rim enhancing loculation of fluid in the posterior right costophrenic sulcus abutting the posterior right lobe liver Chest X-Ray 05/20/20 00:00 IMPRESSION: INTERVAL PLACEMENT OF A RIGHT CHEST TUBE. SMALL APICAL PNEUMOTHORAX, LESS THAN 10%. OTHERWISE NO SIGNIFICANT CHANGE. Chest Fluoroscopy 05/21/20 00:00 IMPRESSION: IMAGE(S) OBTAINED DURING PROCEDURE. Chest X-Ray 05/21/20 00:00 IMPRESSION: 1. Right chest tube with proximal port at the level of the chest wall; consider adjustment replacement. 2. Moderate right hydropneumothorax persists. Chest X-Ray 05/21/20 00:00 IMPRESSION: INTERVAL PLACEMENT OF A RIGHT CHEST TUBE WITH IMPROVEMENT IN THE RIGHT PNEUMOTHORAX. Chest X-Ray 05/21/20 00:00 IMPRESSION: IMAGE(S) OBTAINED DURING PROCEDURE. Chest X-Ray 05/21/20 00:00 IMPRESSION: NO ACUTE FINDINGS.Right chest tube appears in stable position.Small residual right pneumothorax. Right basilar consolidation - pleural effusion. Chest X-Ray 05/21/20 11:30 IMPRESSION: Right chest tube has withdrawn with the tip now at the outer edge of the rib margin. Similar right pneumothorax. Similar right basilar conso lidation - pleural effusion. Chest X-Ray 05/22/20 00:00 IMPRESSION: Unchanged radiographic appearance of the chest. Chest X-Ray 05/23/20 06:00 IMPRESSION: Right chest tube remains in place. Small to moderate right pleural effusion unchanged. No pneumothorax. Chest CT 05/24/20 00:00 IMPRESSION: 1. Right hemithorax chest tube with diminished volume of a previously characterized right-sided pleural effusion which appears to be partially loculated. A tiny right apical pneumothorax is demonstrated. 2. Limited evaluation of the upper abdomen demonstrates a partially imaged fluid collection adjacent to the right hepatic lobe and the appearance of pneumobilia. Other chronic and incidental findings as detailed above. Chest X-Ray 05/24/20 06:00 IMPRESSION: OVERALL NO SIGNIFICANT CHANGE. PERSISTENT DENSITY IN THE RIGHT LUNG AND PERSISTENT RIGHT PLEURAL EFFUSION. SMALL RIGHT PNEUMOTHORAX. IMPRESSION/RECOMMENDATION: 1. Paroxysmal Atrial fibrillation. Continue sotalol. Continue IV Cardizem infusion at 5 mg/h. Once the patient's chest tube comes out then will convert t oral Cardizem. 2. Pneumonia: Continue antibiotics continue BiPAP as needed and oxygen supplementation. 3. Right pleural effusion, status post drainage with chest tube, patient developed pneumothorax hence patient for repeat insertion of chest tube. 4 history of hypertension: At present blood pressure on the lower side. 5. History of hemochromatosis: At present does not seem to be any acute problems from this. The patient CT does not show enlarged liver. 6. COVID test code19 test came back negative 7. Obesity. Medications reviewed. Medical regimen and management plan discussed with attending physician, and nephrology.. Medical decision making is of moderate complexity. 40 minutes spent on this patient with more than 50% of time spent in direct patient care.
[2020-05-25] MEDS: MELATONIN 5 MG TABLET PO SCH (22:25)
[2020-05-25] MEDS: PHENAZOPYRIDINE HCL 200 MG TABLET PO PRN (22:25)
[2020-05-26] MEDS: OXYCODONE-ACETAMINOPHEN 5-325 MG TABLET PO PRN ×3 (00:36→16:45)
[2020-05-26] MEDS: PANTOPRAZOLE SODIUM 20 MG TABLET.DR PO SCH (05:17)
[2020-05-26] MEDS ORDERED: DEXTROSE 40% GEL 15 GM TUBE PO PRN (07:23)
[2020-05-26] MEDS ORDERED: GLUCAGON,HUMAN RECOMB 1 MG INJ SUBCUT PRN (07:23)
[2020-05-26] MEDS ORDERED: DEXTROSE 50%-WATER 25 GM/50 ML DISP.SYRIN IV PRN (07:23)
--- NOTE | 2020-05-26 09:29 | PDOC PROGRESS REPORT ---
Subjective Progress Note for:: 05/26/20 Subjective:: 70-year-old female with a loculated parapneumonic effusion. Patient reports continued chest pain today, likely related to her tube thoracostomy. Her chest tube is draining serosanguinous fluid. She denies shortness of breath today. She denies abdominal pain, nausea, vomiting, dizziness, melena, hematochezia, hematemesis, headache, blurry vision. Reason For Visit: COVID 19,PNEUMONIA Physical Exam Vital Signs: Temp Pulse Resp BP Pulse Ox 97.5 F 110 H 20 79/32 L 90 L 05/26/20 07:42 05/26/20 07:00 05/26/20 03:32 05/26/20 01:00 05/26/20 03:32 Pulse Oximeter Nocturnal Start: 05/17/20 16:50 Freq: RTQ4 Status: Complete Protocol: Document 05/18/20 05:07 [facility] (Rec: 05/18/20 05:55 [facility] [id number]) Nocturnal Pulse Oximetry Equipment Usage Equipment Discontinued Continuous SpO2 Machine # N-2 Intake & Output 05/25/20 05/26/20 05/27/20 06:59 06:59 06:59 Intake Total 1376 1619 Output Total 1415 150 Balance -39 1469 Weight 116.5 kg 117.2 kg Exam: General appearance: PRESENT: no acute distress, obese Head exam: PRESENT: atraumatic, normocephalic Eye exam: PRESENT: EOMI, PERRLA. ABSENT: scleral icterus Mouth exam: PRESENT: moist, neck supple Neck exam: ABSENT: meningismus, tenderness, thyromegaly, tracheal deviation Respiratory exam: PRESENT: unlabored, other - Chest tube in place. 150cc Serosanguineous output over 24 hours. No air leak. Currently to waterseal.. ABSENT: tachypnea Cardiovascular exam: ABSENT: tachycardia GI/Abdominal exam: PRESENT: soft. ABSENT: distended, firm, tenderness Rectal exam: PRESENT: deferred Extremities exam: ABSENT: clubbing Musculoskeletal exam: ABSENT: deformity Neurological exam: PRESENT: alert, awake, oriented to person, oriented to place, oriented to time, oriented to situation Psychiatric exam: ABSENT: agitated, anxious, depressed Focused psych exam: ABSENT: delusional Skin exam: ABSENT: cyanosis, erythema, jaundice Results Laboratory Results: 05/25/20 05:39 10/01/20 05:39 05/13/20 02:15 Troponin I < 0.012 Impressions: Chest Ultrasound 05/19/20 00:00 IMPRESSION: Loculated small right pleural effusion. Abdomen/Pelvis CT 05/19/20 13:00 IMPRESSION: Multiloculated right pleural effusion with right lower lobe airspace disease. Rim enhancing loculation of fluid in the posterior right costophrenic sulcus abutting the posterior right lobe liver Chest Fluoroscopy 05/21/20 00:00 IMPRESSION: IMAGE(S) OBTAINED DURING PROCEDURE. Chest CT 05/24/20 00:00 IMPRESSION: 1. Right hemithorax chest tube with diminished volume of a previously characterized right-sided pleural effusion which appears to be partially loculated. A tiny right apical pneumothorax is demonstrated. 2. Limited evaluation of the upper abdomen demonstrates a partially imaged fluid collection adjacent to the right hepatic lobe and the appearance of pneumobilia. Other chronic and incidental findings as detailed above. Chest X-Ray 05/24/20 06:00 IMPRESSION: OVERALL NO SIGNIFICANT CHANGE. PERSISTENT DENSITY IN THE RIGHT LUNG AND PERSISTENT RIGHT PLEURAL EFFUSION. SMALL RIGHT PNEUMOTHORAX. Assessment & Plan - Diagnosis (1) Community acquired pneumonia Qualifiers: Laterality: right Lung location: lower lobe of lung Qualified Code(s): J18.9 - Pneumonia, unspecified organism Is this a current diagnosis for this admission?: Yes (2) Loculated pleural effusion Is this a current diagnosis for this admission?: Yes (3) Obesity Qualifiers: Obesity type: unspecified obesity type Obesity classification: adult class 2 (BMI 35 - 39.9) Serious obesity comorbidity presence: with serious comorbidity Body mass index: BMI 39.0-39.9 Qualified Code(s): E66.01 - Morbid (severe) obesity due to excess calories; Z68.39 - Body mass index [BMI] 39.0-39.9, adult Is this a current diagnosis for this admission?: Yes - Time Anticipated Discharge Disposition: unknown Anticipated Discharge Timeframe: unknown - Plan Summary Plan Summary: 70-year-old female with a loculated parapneumonic effusion. The chest tube has been draining serosanguineous fluid, 150cc overnight (which is improving). Overall, the size of the pleural effusion is much improved. There is one area in the posterior lateral position that remains undrained. I have discussed the case with radiology. They are willing to aspirate this area, in an attempt to avoid transfer of the patient. Plan for CT-guided drainage of the small remaining pocket of pleural fluid today. Leave anterior chest tube in place for now. Surgery will continue to follow with you.
[2020-05-26] MEDS: DOCUSATE SODIUM 100 MG CAPSULE PO SCH ×2 (11:57→17:38)
[2020-05-26] MEDS: AMOXICILLIN TR/POT CLAVULANATE 875-125 MG TAB PO SCH (11:57)
[2020-05-26] MEDS: SOTALOL HCL 80 MG TABLET PO SCH ×2 (11:58→21:56)
[2020-05-26] MEDS: MAGNESIUM OXIDE 400 MG TABLET PO SCH ×2 (11:58→17:54)
[2020-05-26] MEDS: TIMOLOL MALEATE 0.5% OPH SOLN 5 ML OU SCH ×2 (12:04→21:57)
[2020-05-26] MEDS: HEPARIN SOD (PORCINE) 5,000 UNIT/ML 1 ML VIAL SUBCUT SCH ×2 (12:05→21:58)
[2020-05-26] MEDS: BRIMONIDINE TARTRATE 0.2% OPH SOLN 5 ML OU SCH ×2 (12:15→21:58)
[2020-05-26] MEDS: FLUTICASONE/VILANTEROL 100-25 MCG/DOSE IH SCH (12:16)
[2020-05-26] MEDS ORDERED: DILTIAZEM HCL/D5W 125 MG/125 ML RTUINJ IV PRN (12:30)
--- NOTE | 2020-05-26 12:31 | PDOC PROGRESS REPORT ---
Subjective Progress Note for:: 05/26/20 Subjective:: 70-year-old female with a loculated parapneumonic effusion. She appears to be comfortable in bed. She said she does not really get up from bed. She is still on Cardizem drip however she did convert to sinus rhythm today. Dr. Morales suggest to still leave her on the Cardizem drip at 5 mg/h. She is also on sotalol. Evaluation by Dr. Lovett today suggest that the size of the effusion is improving and although there remains a posterolateral position fluid collect ion this is going to be attempted to be drained by interventional radiologist. atipauly's condition is grossly unchanged this morning. She states that she always feels bad and she is in her usual state. She still draining quite a bit of fluid, 1500 cc overnight. Plan is to proceed with a CT-guided drainage of the posterior collection of fluid. She does have an anterior chest tube in place which would not be removed Reason For Visit: COVID 19,PNEUMONIA Physical Exam Vital Signs: Temp Pulse Resp BP Pulse Ox 97.4 F 105 H 18 113/49 L 97 05/26/20 11:48 05/26/20 11:48 05/26/20 11:48 05/26/20 11:48 05/26/20 11:48 Pulse Oximeter Nocturnal Start: 05/17/20 16:50 Freq: RTQ4 Status: Complete Protocol: Document 05/18/20 05:07 [facility] (Rec: 05/18/20 05:55 [facility] [id number]) Nocturnal Pulse Oximetry Equipment Usage Equipment Discontinued Continuous SpO2 Machine # [id number]-2 Intake & Output 05/25/20 05/26/20 05/27/20 06:59 06:59 06:59 Intake Total 1376 1619 0 Output Total 1415 150 Balance -39 1469 0 Weight 116.5 kg 117.2 kg General appearance: PRESENT: no acute distress, obese, well-developed, well- nourished Head exam: PRESENT: atraumatic, normocephalic Eye exam: PRESENT: conjunctiva pink, EOMI. ABSENT: scleral icterus Mouth exam: PRESENT: moist, tongue midline Neck exam: ABSENT: carotid bruit, JVD, lymphadenopathy, thyromegaly Respiratory exam: PRESENT: decreased breath sounds, unlabored, other - Chest tube in R chest wall. ABSENT: rales, rhonchi, wheezes Cardiovascular exam: PRESENT: RRR, +S1, +S2. ABSENT: diastolic murmur, rubs, systolic murmur Pulses: PRESENT: normal dorsalis pedis pul Vascular exam: PRESENT: normal capillary refill GI/Abdominal exam: PRESENT: normal bowel sounds, soft. ABSENT: distended, guarding, mass, organolmegaly, rebound, tenderness Rectal exam: PRESENT: deferred Extremities exam: PRESENT: full ROM. ABSENT: calf tenderness, clubbing, pedal edema Neurological exam: PRESENT: alert, awake, oriented to person, oriented to place, oriented to time, oriented to situation, CN II-XII grossly intact. ABSENT: motor sensory deficit Psychiatric exam: PRESENT: appropriate affect, normal mood. ABSENT: homicidal ideation, suicidal ideation Skin exam: PRESENT: dry, intact, warm. ABSENT: cyanosis, rash Results Laboratory Results: 05/25/20 05:39 05/25/20 05:39 05/13/20 02:15 Troponin I < 0.012 Impressions: Chest Ultrasound 05/19/20 00:00 IMPRESSION: Loculated small right pleural effusion. Abdomen/Pelvis CT 05/19/20 13:00 IMPRESSION: Multiloculated right pleural effusion with right lower lobe air space disease. Rim enhancing loculation of fluid in the posterior right costophrenic sulcus abutting the posterior right lobe liver Chest Fluoroscopy 05/21/20 00:00 IMPRESSION: IMAGE(S) OBTAINED DURING PROCEDURE. Chest CT 05/24/20 00:00 IMPRESSION: 1. Right hemithorax chest tube with diminished volume of a previously characterized right-sided pleural effusion which appears to be partially loculated. A tiny right apical pneumothorax is demonstrated. 2. Limited evaluation of the upper abdomen demonstrates a partially imaged fluid collection adjacent to the right hepatic lobe and the appearance of pneumobilia. Other chronic and incidental findings as detailed above. Chest X-Ray 05/24/20 06:00 IMPRESSION: OVERALL NO SIGNIFICANT CHANGE. PERSISTENT DENSITY IN THE RIGHT LUNG AND PERSISTENT RIGHT PLEURAL EFFUSION. SMALL RIGHT PNEUMOTHORAX. Assessment and Plan - Diagnosis (1) Abdominal visceral abscess Is this a current diagnosis for this admission?: Yes (2) Community acquired pneumonia Qualifiers: Laterality: right Lung location: lower lobe of lung Qualified Code(s): J18.9 - Pneumonia, unspecified organism Is this a current diagnosis for this admission?: Yes Plan: Fevers and leukocytosis have resolved. Completed 5 days of azithromycin and ceftriaxone. (3) Loculated pleural effusion Is this a current diagnosis for this admission?: Yes Plan: Complicated right parapneumonic with multiple loculations on CT. pH on pleural fluid is misleading as sample was collected after alteplase and dornase had been administered. However, no rey growth on stain/culture nor purulence to suggest empyema. Continue Augmentin. Will need 2 to 3 weeks total of antibiotics. Chest tube placed 05/20 and drained nicely but dislodged. 2nd posterior chest tube also dislodged on 05/21 and removed. Currently, patient has anterior chest tube. TPA/dornase augusto being administered by Dr. Lovett (day 3/3 doses so far). Plan for repeat CAT scan tomorrow to reevaluate loculations.... If this fails, next step will be tertiary transfer for VATS. 05/[address] Lovett. No indication for transfer to a tertiary center at this time as effusion appears to be resolving 05/26 Chest tube for posterior loculation (4) Obesity (BMI 30-39.9) Is this a current diagnosis for this admission?: Yes (5) Permanent atrial fibrillation Is this a current diagnosis for this admission?: Yes Plan: Heart rate controlled today. Still on sotalol. Dr. Morales recommends continuing diltiazem drip at 7.5 until lung issues have been addressed. Xarelto remains on hold. SQ Heparin in the meantime. Monitor on telemetry. 05/25 Cardizem drip to be continued as per cardiology recommendation 05/26 Patient remains on Sotalol, Xarelto (6) Pneumothorax, right Is this a current diagnosis for this admission?: Yes - Time Time Spent with patient: 15-24 minutes Anticipated Discharge Disposition: Home with Home Health Anticipated Discharge Timeframe: within 72 hours
[2020-05-26] MEDS ORDERED: DIGOXIN INJ 0.5 MG/2 ML AMPULE IV ONE (13:00)
--- NOTE | 2020-05-26 19:16 | Progress Note ---
Provider Note Provider Note: CARDIOLOGY PROGRESS NOTE by Dr. Elodia Ferreira on 05/26/2020. SUBJECTIVE: The patient has pain at the site of chest tube insertion. The chest tube is not draining much. She refused to have another chest tube. Since there is another loculated area of pleural effusion. This is due to the fact that the patient states that she cannot lay down flat. The patient is Cardizem was discontinued last night and now she is in back in atrial fibrillation with a ventricular response in the low 100s. We will restart the patient's Cardizem and also give an extra dose of digoxin. There is no ventricular arrhythmias. She is tolerating sotalol. There is no proarrhythmia seen. PHYSICAL EXAMINATION: The patient is morbidly obese. In no acute distress. Selected Entries 05/26/20 05/26/20 11:08 11:48 Temperature 97.4 F Temperature Oral Source Pulse Rate 105 H Respiratory 18 Rate Blood Pressure 113/49 L Blood Pressure 70 Mean BP Location Left Arm BP Position Supine O2 Sat by Pulse 97 Oximetry Oxygen Delivery Nasal Cannula Method ( includes room air) Oxygen Flow 2 Rate HEAD: Is atraumatic normocephalic. PUPILS are equal round regular reactive to light accommodation extraocular movements are normal. There is no conjunctival pallor. There is no scleral icterus. ENT is negative note patient is on BiPAP. NECK: Supple. There is no JVD. Carotids are equal there is no bruits. There is no lymphadenopathy. There is no goiter. There is no accessory muscle respiration use. Trachea central. LUNGS: There is a chest tube on the right side. There is some degree of subcutaneous crepitus. Lung sounds diminished in the right base.. There is no rales of CHF. HEART: S1-S2 is heard. S1 is of variable intensity. The patient is tachycardic. There is systolic murmur left sternal border and the apex there is no rub. ABDOMEN: Is obese. Nontender there is no hepatosplenomegaly. Bowel sounds are well heard. There is no tender areas masses. EXTREMITIES: Femorals are deep. There is no femoral bruits. Leg pulses are well felt. There is no pedal edema. There is no DVT or cellulitis. There is no cyanosis or clubbing. SHOE STITCHER ODD: The patient is drowsy but without any focal deficits. PSYCHIATRIC: In spite of her drowsiness the patient judgment insight are intact and affect is normal. HEAD: Is atraumatic normocephalic. PUPILS are equal round regular reactive to light accommodation extraocular movements are normal. There is no conjunctival pallor. There is no scleral icterus. ENT is negative note patient is on BiPAP. NECK: Supple. There is no JVD. Carotids are equal there is no bruits. There is no lymphadenopathy. There is no goiter. There is no accessory muscle respiration use. Trachea central. LUNGS: There is a chest tube on the right side. There is some degree of subcutaneous crepitus. Lung sounds diminished in the right base.. There is no rales of CHF. HEART: S1-S2 is heard. S1 is of variable intensity. The patient is tachycardic. There is systolic murmur left sternal border and the apex there is no rub. ABDOMEN: Is obese. Nontender there is no hepatosplenomegaly. Bowel sounds are well heard. There is no tender areas masses. EXTREMITIES: Femorals are deep. There is no femoral bruits. Leg pulses are well felt. There is no pedal edema. There is no DVT or cellulitis. There is no cyanosis or clubbing. SHOE STITCHER ODD: The patient is drowsy but without any focal deficits. PSYCHIATRIC: In spite of her drowsiness the patient judgment insight are intact and affect is normal. Labs- All tests 24 hr 05/26/20 13:10 COVID-19 Source See comment Chest X-Ray 05/13/20 03:03 IMPRESSION: Small right effusion with minimal adjacent airspace opacity copyright 2011 [employer]- All Rights Reserved Chest X-Ray 05/16/20 00:00 IMPRESSION: Right-sided pleural effusion demonstrates increased volume on today's examination. Otherwise stable radiographic appearance of the chest. Chest CT 05/18/20 00:00 IMPRESSION: Right pleural effusion and right lower lobe collapse. No fibrosis. Chest Ultrasound 05/19/20 00:00 IMPRESSION: Loculated small right pleural effusion. Abdomen/Pelvis CT 05/19/20 13:00 IMPRESSION: Multiloculated right pleural effusion with right lower lobe airspace disease. Rim enhancing loculation of fluid in the posterior right costophrenic sulcus abutting the posterior right lobe liver Chest X-Ray 05/20/20 00:00 IMPRESSION: INTERVAL PLACEMENT OF A RIGHT CHEST TUBE. SMALL APICAL PNEUMOTHORAX, LESS THAN 10%. OTHERWISE NO SIGNIFICANT CHANGE. Chest Fluoroscopy 05/21/20 00:00 IMPRESSION: IMAGE(S) OBTAINED DURING PROCEDURE. Chest X-Ray 05/21/20 00:00 IMPRESSION: 1. Right chest tube with proximal port at the level of the chest wall; consider adjustment replacement. 2. Moderate right hydropneumothorax persists. Chest X-Ray 05/21/20 00:00 IMPRESSION: INTERVAL PLACEMENT OF A RIGHT CHEST TUBE WITH IMPROVEMENT IN THE RIGHT PNEUMOTHORAX. Chest X-Ray 05/21/20 00:00 IMPRESSION: IMAGE(S) OBTAINED DURING PROCEDURE. Chest X-Ray 05/21/20 00:00 IMPRESSION: NO ACUTE FINDINGS.Right chest tube appears in stable position.Small residual right pneumothorax. Right basilar consolidation - pleural effusion. Chest X-Ray 05/21/20 11:30 IMPRESSION: Right chest tube has withdrawn with the tip now at the outer edge of the rib margin. Similar right pneumothorax. Similar right basilar consolidation - pleural effusion. Chest X-Ray 05/22/20 00:00 IMPRESSION: Unchanged radiographic appearance of the chest. Chest X-Ray 05/23/20 06:00 IMPRESSION: Right chest tube remains in place. Small to moderate right pleural effusion unchanged. No pneumothorax. Chest CT 05/24/20 00:00 IMPRESSION: 1. Right hemithorax chest tube with diminished volume of a previously characterized right-sided pleural effusion which appears to be partially loculated. A tiny right apical pneumothorax is demonstrated. 2. Limited evaluation of the upper abdomen demonstrates a partially imaged fluid collection adjacent to the right hepatic lobe and the appearance of pneumobilia. Other chronic and incidental findings as detailed above. Chest X-Ray 05/24/20 06:00 IMPRESSION: OVERALL NO SIGNIFICANT CHANGE. PERSISTENT DENSITY IN THE RIGHT LUNG AND PERSISTENT RIGHT PLEURAL EFFUSION. SMALL RIGHT PNEUMOTHORAX. IMPRESSION/RECOMMENDATION: 1. Paroxysmal Atrial fibrillation. Patient back in atrial fibrillation. Continue sotalol. Continue IV Cardizem infusion at 2.5 mg/h. Once the patient's chest tube comes out then will convert t oral Cardizem. Will will give an extra dose of digoxin today. 2. Pneumonia: Continue antibiotics continue BiPAP as needed and oxygen supplementation. 3. Right pleural effusion, status post drainage with chest tube, patient developed pneumothorax hence patient for repeat insertion of chest tube. 4 history of hypertension: At present blood pressure on the lower side. 5. History of hemochromatosis: At present does not seem to be any acute problems from this. The patient CT does not show enlarged liver. 6. COVID test code19 test came back negative 7. Obesity. Medications reviewed. Medical regimen and management plan discussed with attending physician, and nephrology.. Medical decision making is of moderate complexity. 40 minutes spent on this patient with more than 50% of time spent in direct patient care. .
[2020-05-26] MEDS: LEVALBUTEROL HCL NEB 1.25 MG/3 ML AMPUL NEB PRN (20:55)
[2020-05-26] MEDS: MORPHINE SULFATE 10 MG/ML INJ IV PRN (20:57)
[2020-05-26] MEDS: MELATONIN 5 MG TABLET PO SCH (21:56)
[2020-05-27] MEDS: PANTOPRAZOLE SODIUM 20 MG TABLET.DR PO SCH (05:59)
[2020-05-27] MEDS: MORPHINE SULFATE 10 MG/ML INJ IV PRN ×2 (06:11→22:28)
[2020-05-27] MEDS: LEVALBUTEROL HCL NEB 1.25 MG/3 ML AMPUL NEB PRN ×2 (09:09→20:40)
[2020-05-27] MEDS: DOCUSATE SODIUM 100 MG CAPSULE PO SCH ×2 (10:02→17:50)
[2020-05-27] MEDS: FLUTICASONE/VILANTEROL 100-25 MCG/DOSE IH SCH (10:02)
[2020-05-27] MEDS: TIMOLOL MALEATE 0.5% OPH SOLN 5 ML OU SCH ×2 (10:05→21:06)
[2020-05-27] MEDS: MAGNESIUM OXIDE 400 MG TABLET PO SCH ×2 (10:05→18:23)
[2020-05-27] MEDS: SOTALOL HCL 80 MG TABLET PO SCH ×2 (10:05→21:05)
[2020-05-27] MEDS: BRIMONIDINE TARTRATE 0.2% OPH SOLN 5 ML OU SCH ×2 (10:06→21:06)
[2020-05-27] MEDS: HEPARIN SOD (PORCINE) 5,000 UNIT/ML 1 ML VIAL SUBCUT SCH ×2 (10:06→21:05)
--- NOTE | 2020-05-27 11:05 | PDOC PROGRESS REPORT ---
Subjective Progress Note for:: 05/27/20 Subjective:: 70-year-old female with a loculated parapneumonic effusion. Patient reports continued chest pain today, likely related to her tube thoracostomy. Her chest tube is draining serosanguinous fluid. She denies shortness of breath today. She denies abdominal pain, nausea, vomiting, dizziness, melena, hematochezia, hematemesis, headache, blurry vision. Yesterday she refused to have a CT guided aspiration of the remaining pleural fluid. Reason For Visit: COVID 19,PNEUMONIA Physical Exam Vital Signs: Temp Pulse Resp BP Pulse Ox 97.5 F 84 16 109/43 L 100 05/27/20 07:36 05/27/20 09:10 05/27/20 09:10 05/27/20 07:36 05/27/20 09:10 Pulse Oximeter Nocturnal Start: 05/17/20 16:50 Freq: RTQ4 Status: Complete Protocol: Document 05/18/20 05:07 [facility] (Rec: 05/18/20 05:55 [facility] [id number]) Nocturnal Pulse Oximetry Equipment Usage Equipment Discontinued Continuous SpO2 Machine # [id number]-2 Intake & Output 05/26/20 05/27/20 05/28/20 06:59 06:59 06:59 Intake Total 1619 820 Output Total 150 100 Balance 1469 720 Weight 117.2 kg 117.9 kg Exam: General appearance: PRESENT: no acute distress, obese Head exam: PRESENT: atraumatic, normocephalic Eye exam: PRESENT: EOMI, PERRLA. ABSENT: scleral icterus Mouth exam: PRESENT: moist, neck supple Neck exam: ABSENT: meningismus, tenderness, thyromegaly, tracheal deviation Respiratory exam: PRESENT: unlabored, other - Chest tube in place. ~100cc Serosanguineous output over 24 hours. No air leak. Currently to waterseal.. ABSENT: tachypnea Cardiovascular exam: ABSENT: tachycardia GI/Abdominal exam: PRESENT: soft. ABSENT: distended, firm, tenderness Rectal exam: PRESENT: deferred Extremities exam: ABSENT: clubbing Musculoskeletal exam: ABSENT: deformity Neurological exam: PRESENT: alert, awake, oriented to person, oriented to place, oriented to time, oriented to situation Psychiatric exam: ABSENT: agitated, anxious, depressed Focused psych exam: ABSENT: delusional Skin exam: ABSENT: cyanosis, erythema, jaundice Results Laboratory Results: 05/25/20 05:39 05/25/20 05:39 05/13/20 02:15 Troponin I < 0.012 Impressions: Chest Ultrasound 05/19/20 00:00 IMPRESSION: Loculated small right pleural effusion. Abdomen/Pelvis CT 05/19/20 13:00 IMPRESSION: Multiloculated right pleural effusion with right lower lobe airspace disease. Rim enhancing loculation of fluid in the posterior right costophrenic sulcus abutting the posterior right lobe liver Chest Fluoroscopy 05/21/20 00:00 IMPRESSION: IMAGE(S) OBTAINED DURING PROCEDURE. Chest CT 05/24/20 00:00 IMPRESSION: 1. Right hemithorax chest tube with diminished volume of a previously characterized right-sided pleural effusion which appears to be partially loculated. A tiny right apical pneumothorax is demonstrated. 2. Limited evaluation of the upper abdomen demonstrates a partially imaged fluid collection adjacent to the right hepatic lobe and the appearance of pneumobilia. Other chronic and incidental findings as detailed above. Chest X-Ray 05/24/20 06:00 IMPRESSION: OVERALL NO SIGNIFICANT CHANGE. PERSISTENT DENSITY IN THE RIGHT LUNG AND PERSISTENT RIGHT PLEURAL EFFUSION. SMALL RIGHT PNEUMOTHORAX. Assessment & Plan - Diagnosis (1) Community acquired pneumonia Qualifiers: Laterality: right Lung location: lower lobe of lung Qualified Code(s): J18.9 - Pneumonia, unspecified organism Is this a current diagnosis for this admission?: Yes (2) Loculated pleural effusion Is this a current diagnosis for this admission?: Yes (3) Obesity Qualifiers: Obesity type: unspecified obesity type Obesity classification: adult class 2 (BMI 35 - 39.9) Serious obesity comorbidity presence: with serious comorbidity Body mass index: BMI 39.0-39.9 Qualified Code(s): E66.01 - Morbid (severe) obesity due to excess calories; Z68.39 - Body mass index [BMI] 39.0-39.9, adult Is this a current diagnosis for this admission?: Yes - Time Anticipated Discharge Disposition: unknown Anticipated Discharge Timeframe: unknown - Plan Summary Plan Summary: 70-year-old female with a loculated parapneumonic effusion. The chest tube has been draining serosanguineous fluid, ~100cc overnight (which is much improved). Overall, the size of the pleural effusion is much smaller. There is one area in the posterior lateral position that remains undrained. CT-guided drainage of the small remaining pocket of pleural fluid was attempted, but the pt refused. Thoracostomy output has decreased significantly. Remove anterior chest tube today. If the pt will consent to CT guided aspiration of her remaining pleural fluid, she would likely see some benefit. Surgery will continue to follow with you.
[2020-05-27] MEDS: DIGOXIN INJ 0.5 MG/2 ML AMPULE IV SCH (16:11)
--- NOTE | 2020-05-27 18:37 | PDOC PROGRESS REPORT ---
Subjective Progress Note for:: 05/27/20 Subjective:: 70-year-old female with a loculated parapneumonic effusion. She appears to be comfortable in bed. She said she does not really get up from bed. She is still on Cardizem drip however she did convert to sinus rhythm today. Dr. Morales suggest to still leave her on the Cardizem drip at 5 mg/h. She is also on sotalol. Evaluation by Dr. Lovett today suggest that the size of the effusion is improving and although there remains a posterolateral position fluid collect ion this is going to be attempted to be drained by interventional radiologist. atient's condition is grossly unchanged this morning. She states that she always feels bad and she is in her usual state. She still draining quite a bit of fluid, 1500 cc overnight. Plan is to proceed with a CT-guided drainage of the posterior collection of fluid. She does have an anterior chest tube in place which would not be removed 05/27 patient seen on rounds. She denies any new complaints. She denies any chest pain Reason For Visit: COVID 19,PNEUMONIA Physical Exam Vital Signs: Temp Pulse Resp BP Pulse Ox 97.4 F 83 20 95/40 L 97 05/27/20 15:24 05/27/20 15:24 05/27/20 15:24 05/27/20 15:24 05/27/20 15:24 Pulse Oximeter Nocturnal Start: 05/17/20 16:5 0 Freq: RTQ4 Status: Complete Protocol: Document 05/18/20 05:07 [facility] (Rec: 05/18/20 05:55 [facility] [id number]) Nocturnal Pulse Oximetry Equipment Usage Equipment Discontinued Continuous SpO2 Machine # N-[id number] Intake & Output 05/26/20 05/27/20 05/28/20 06:59 06:59 06:59 Intake Total 1619 820 910 Output Total 150 100 Balance 1469 720 910 Weight 117.2 kg 117.9 kg General appearance: PRESENT: no acute distress, morbidly obese, well-nourished Head exam: PRESENT: atraumatic, normocephalic Eye exam: PRESENT: conjunctiva pink, EOMI, PERRLA. ABSENT: scleral icterus Mouth exam: PRESENT: moist, tongue midline Neck exam: ABSENT: carotid bruit, JVD, lymphadenopathy, thyromegaly Respiratory exam: PRESENT: clear to auscultation aroldo, other - Chest to be right chest wall serosanguineous fluid. ABSENT: rales, rhonchi, wheezes Cardiovascular exam: PRESENT: RRR, +S1, +S2. ABSENT: diastolic murmur, rubs, systolic murmur Pulses: PRESENT: normal dorsalis pedis pul Vascular exam: PRESENT: normal capillary refill GI/Abdominal exam: PRESENT: normal bowel sounds, soft. ABSENT: distended, guarding, mass, organolmegaly, rebound, tenderness Rectal exam: PRESENT: deferred Extremities exam: PRESENT: full ROM. ABSENT: calf tenderness, clubbing, pedal edema Neurological exam: PRESENT: alert, awake, oriented to person, oriented to place, oriented to time, oriented to situation, CN II-XII grossly intact. ABSENT: motor sensory deficit Psychiatric exam: PRESENT: appropriate affect, normal mood. ABSENT: homicidal ideation, suicidal ideation Skin exam: PRESENT: dry, intact, warm. ABSENT: cyanosis, rash Results Laboratory Results: 05/25/20 05:39 05/25/20 05:39 05/13/20 02:15 Troponin I < 0.012 Impressions: Chest Ultrasound 05/19/20 00:00 IMPRESSION: Loculated small right pleural effusion. Abdomen/Pelvis CT 05/19/20 13:00 IMPRESSION: Multiloculated right pleural effusion with right lower lobe airspace disease. Rim enhancing loculation of fluid in the posterior right costophrenic sulcus abutting the posterior right lobe liver Chest Fluoroscopy 05/21/20 00:00 IMPRESSION: IMAGE(S) OBTAINED DURING PROCEDURE. Chest CT 05/24/20 00:00 IMPRESSION: 1. Right hemithorax chest tube with diminished volume of a previously characterized right-sided pleural effusion which appears to be partially loculated. A tiny right apical pneumothorax is demonstrated. 2. Limited evaluation of the upper abdomen demonstrates a partially imaged fl uid collection adjacent to the right hepatic lobe and the appearance of pneumobilia. Other chronic and incidental findings as detailed above. Chest X-Ray 05/24/20 06:00 IMPRESSION: OVERALL NO SIGNIFICANT CHANGE. PERSISTENT DENSITY IN THE RIGHT LUNG AND PERSISTENT RIGHT PLEURAL EFFUSION. SMALL RIGHT PNEUMOTHORAX. Assessment and Plan - Diagnosis (1) Abdominal visceral abscess Is this a current diagnosis for this admission?: Yes (2) Community acquired pneumonia Qualifiers: Laterality: right Lung location: lower lobe of lung Qualified Code(s): J18.9 - Pneumonia, unspecified organism Is this a current diagnosis for this admission?: Yes (3) Loculated pleural effusion Is this a current diagnosis for this admission?: Yes (4) Obesity (BMI 30-39.9) Is this a current diagnosis for this admission?: Yes (5) Permanent atrial fibrillation Is this a current diagnosis for this admission?: Yes (6) Pneumothorax, right Is this a current diagnosis for this admission?: Yes - Time Time Spent with patient: 15-24 minutes Medications reviewed and adjusted accordingly: Yes Anticipated Discharge Disposition: Group Home Facility Anticipated Discharge Timeframe: within 48 hours
[2020-05-27] MEDS: OXYCODONE-ACETAMINOPHEN 5-325 MG TABLET PO PRN (19:29)
[2020-05-27] MEDS: MELATONIN 5 MG TABLET PO SCH (21:05)
--- NOTE | 2020-05-27 23:05 | Progress Note ---
Provider Note Provider Note: CARDIOLOGY PROGRESS NOTE by Dr. Elodia Ferreira on 05/27/2020. SUBJECTIVE: The patient remains in sinus rhythm with no recurrence of atrial fibrillation. Her blood pressure is marginal. Chest tube is out. There is no ventricle arrhythmia seen on the monitor. There is no TIA CVA symptoms. PHYSICAL EXAMINATION: The patient is morbidly obese. At present in no acute distress. Selected Entries 05/27/20 05/27/20 15:24 15:30 Temperature 97.4 F Temperature Oral Source Pulse Rate 83 Respiratory 20 Rate Blood Pressure 105/65 BP Location Left Arm BP Position Supine O2 Sat by Pulse 97 Oximetry Oxygen Flow 2.00 Rate Oxygen Delivery Nasal Cannula Method HEAD: Is atraumatic normocephalic. PUPILS are equal round regular reactive to light accommodation extraocular movements are normal. There is no conjunctival pallor. There is no scleral icterus. ENT is negative note patient is on BiPAP. NECK: Supple. There is no JVD. Carotids are equal there is no bruits. There is no lymphadenopathy. There is no goiter. There is no accessory muscle respiration use. Trachea central. LUNGS: There is a chest tube on the right side. There is some degree of subcutaneous crepitus. Lung sounds diminished in the right base.. There is no rales of CHF. HEART: S1-S2 is heard. S1 is of variable intensity. The patient is tachycardic. There is systolic murmur left sternal border and the apex there is no rub. ABDOMEN: Is obese. Nontender there is no hepatosplenomegaly. Bowel sounds are well heard. There is no tender areas masses. EXTREMITIES: Femorals are deep. There is no femoral bruits. Leg pulses are well felt. There is no pedal edema. There is no DVT or cellulitis. There is no cyanosis or clubbing. [employer] TIN[employer]ING: The patient is drowsy but without any focal deficits. PSYCHIATRIC: In spite of her drowsiness the patient judgment insight are intact and affect is normal. HEAD: Is atraumatic normocephalic. PUPILS are equal round regular reactive to light accommodation extraocular movements are normal. There is no conjunctival pallor. There is no scleral icterus. ENT is negative note patient is on BiPAP. NECK: Supple. There is no JVD. Carotids are equal there is no bruits. There is no lymphadenopathy. There is no goiter. There is no accessory muscle respiration use. Trachea central. LUNGS: There is a chest tube on the right side. There is some degree of subcutaneous crepitus. Lung sounds diminished in the right base.. There is no rales of CHF. HEART: S1-S2 is heard. S1 is of variable intensity. The patient is tachycardic. There is systolic murmur left sternal border and the apex there is no rub. ABDOMEN: Is obese. Nontender there is no hepatosplenomegaly. Bowel sounds are well heard. There is no tender areas masses. EXTREMITIES: Femorals are deep. There is no femoral bruits. Leg pulses are well felt. There is no pedal edema. There is no DVT or cellulitis. There is no cyanosis or clubbing. [employer] TINNING: The patient is drowsy but without any focal deficits. PSYCHIATRIC: In spite of her drowsiness the patient judgment insight are intact and affect is normal. Chest X-Ray 05/13/20 03:03 IMPRESSION: Small right effusion with minimal adjacent airspace opacity copyright 2011 [employer]- All Rights Reserved Chest X-Ray 05/16/20 00:00 IMPRESSION: Right-sided pleural effusion demonstrates increased volume on today's examination. Otherwise stable radiographic appearance of the chest. Chest CT 05/18/20 00:00 IMPRESSION: Right pleural effusion and right lower lobe collapse. No fibrosis. Chest Ultrasound 05/19/20 00:00 IMPRESSION: Loculated small right pleural effusion. Abdomen/Pelvis CT 05/19/20 13:00 IMPRESSION: Multiloculated right pleural effusion with right lower lobe airspace disease. Rim enhancing loculation of fluid in the posterior right costophrenic sulcus abutting the posterior right lobe liver Chest X-Ray 05/20/20 00:00 IMPRESSION: INTERVAL PLACEMENT OF A RIGHT CHEST TUBE. SMALL APICAL PNEUMOTHORAX, LESS THAN 10%. OTHERWISE NO SIGNIFICANT CHANGE. Chest Fluoroscopy 05/21/20 00:00 IMPRESSION: IMAGE(S) OBTAINED DURING PROCEDURE. Chest X-Ray 05/21/20 00:00 IMPRESSION: 1. Right chest tube with proximal port at the level of the chest wall; consider adjustment replacement. 2. Moderate right hydropneumothorax persists. Chest X-Ray 05/21/20 00:00 IMPRESSION: INTERVAL PLACEMENT OF A RIGHT CHEST TUBE WITH IMPROVEMENT IN THE RIGHT PNEUMOTHORAX. Chest X-Ray 05/21/20 00:00 IMPRESSION: IMAGE(S) OBTAINED DURING PROCEDURE. Chest X-Ray 05/21/20 00:00 IMPRESSION: NO ACUTE FINDINGS.Right chest tube appears in stable position.Small residual right pneumothorax. Right basilar consolidation - pleural effusion. Chest X-Ray 05/21/20 11:30 IMPRESSION: Right chest tube has withdrawn with the tip now at the outer edge of the rib margin. Similar right pneumothorax. Similar right basilar consolidation - pleural effusion. Chest X-Ray 05/22/20 00:00 IMPRESSION: Unchanged radiographic appearance of the chest. Chest X-Ray 05/23/20 06:00 IMPRESSION: Right chest tube remains in place. Small to moderate right pleural effusion unchanged. No pneumothorax. Chest CT 05/24/20 00:00 IMPRESSION: 1. Right hemithorax chest tube with diminished volume of a previously characterized right-sided pleural effusion which appears to be partially loculated. A tiny right apical pneumothorax is demonstrated. 2. Limited evaluation of the upper abdomen demonstrates a partially imaged fluid collection adjacent to the right hepatic lobe and the appearance of pneumobilia. Other chronic and incidental findings as detailed above. Chest X-Ray 05/24/20 06:00 IMPRESSION: OVERALL NO SIGNIFICANT CHANGE. PERSISTENT DENSITY IN THE RIGHT LUNG AND PERSISTENT RIGHT PLEURAL EFFUSION. SMALL RIGHT PNEUMOTHORAX. IMPRESSION/RECOMMENDATION: 1. Paroxysmal Atrial fibrillation. Patient back in sinus rhythm. Continue Xarelto. In view of the tenuous blood pressure we will stop the patient's Cardizem drip/infusion. Continue sotalol. We will start the patient also on digoxin 0.25 mg IV push daily. 2. Pneumonia: Continue antibiotics continue BiPAP as needed and oxygen supplementation. This seems to have resolved. 3. Right pleural effusion, status post drainage with chest tube, patient developed pneumothorax . The patient's chest tube has been removed. 4 history of hypertension: At present blood pressure on the lower side. 5. History of hemochromatosis: At present does not seem to be any acute problems from this. The patient CT does not show enlarged liver. 6. COVID test code19 test came back negative 7. Obesity. Medications reviewed. Medical regimen and management plan discussed with attending physician, and nephrology.. Medical decision making is of moderate complexity. 40 minutes spent on this patient with more than 50% of time spent in direct patient care.
[2020-05-28 05:29] LABS: ABSOLUTE BASOPHILS # (AUTO) 0.1 10^3/uL (0.0-0.2); ABSOLUTE EOSINOPHILS # (AUTO) 0.1 10^3/uL (0.0-0.6); ABSOLUTE LYMPHOCYTES (AUTO) 1.3 10^3/uL (0.5-4.7); ABSOLUTE MONOCYTES (AUTO) 0.7 10^3/uL (0.1-1.4); ABSOLUTE NEUT (AUTO) 4.1 10^3/uL (1.7-8.2); EOSINOPHILS % (AUTO) 1.3 % (0-6); HEMOGLOBIN 9.5 g/dL (12.0-15.5); LYMPHOCYTES % (AUTO) 20.6 % (13-45); MEAN CORPUSCULAR HEMOGLOBIN 28.4 pg (27.0-33.4); MEAN CORPUSCULAR HGB CONC 32.6 g/dL (32.0-36.0); MEAN CORPUSCULAR VOLUME 87 fl (80-97); MONOCYTES % (AUTO) 11.7 % (3-13); PLATELET COUNT 404 10^3/uL (150-450); RED BLOOD COUNT 3.34 10^6/uL (3.72-5.28); RED CELL DISTRIBUTION WIDTH 17.2 % (11.5-14.0); SEGMENTED NEUTROPHILS % (AUTO) 65.4 % (42-78); TOTAL CELLS COUNTED % (AUTO) 100 %; WHITE BLOOD COUNT 6.3 10^3/uL (4.0-10.5)
[2020-05-28] MEDS: PANTOPRAZOLE SODIUM 20 MG TABLET.DR PO SCH (05:29)
[2020-05-28 05:50] LABS: ANION GAP 5 (5-19); BLOOD UREA NITROGEN 9 mg/dL (7-20); CALCIUM 8.8 mg/dL (8.4-10.2); CARBON DIOXIDE 35 mmol/L (22-30); CHLORIDE 97 mmol/L (98-107); GLUCOSE 113 mg/dL (75-110); POTASSIUM 4.5 mmol/L (3.6-5.0)
[2020-05-28] MEDS: OXYCODONE-ACETAMINOPHEN 5-325 MG TABLET PO PRN ×3 (06:29→21:19)
--- NOTE | 2020-05-28 08:13 | RADIOLOGY REPORT (SQ) ---
EXAM DESCRIPTION: CHEST SINGLE VIEW IMAGES COMPLETED DATE/TIME: 05/28/2020 7:49 am REASON FOR STUDY: eval pleural effusion COMPARISON: 05/24/2020. EXAM PARAMETERS: NUMBER OF VIEWS: One view. TECHNIQUE: Single frontal radiographic view of the chest acquired. RADIATION DOSE: NA LIMITATIONS: None. FINDINGS: LUNGS AND PLEURA: Interval removal of the right chest tube. Small apical pneumothorax unc hanged. Density in the right mid lung also unchanged. Left lung clear. MEDIASTINUM AND HILAR STRUCTURES: No masses. Contour normal. HEART AND VASCULAR STRUCTURES: Heart upper limits of normal in size. Normal vasculature. BONES: No acute findings. HARDWARE: None in the chest. OTHER: No other significant finding. IMPRESSION: INTERVAL REMOVAL OF THE RIGHT CHEST TUBE. OTHERWISE NO CHANGE. TECHNICAL DOCUMENTATION: JOB ID: [id number] 2010 [employer]- All Rights Reserved Reading location - IP/workstation name: [email or web address]
[2020-05-28] MEDS: FLUTICASONE/VILANTEROL 100-25 MCG/DOSE IH SCH (09:37)
[2020-05-28] MEDS: DOCUSATE SODIUM 100 MG CAPSULE PO SCH ×2 (09:37→17:31)
[2020-05-28] MEDS: SOTALOL HCL 80 MG TABLET PO SCH ×2 (09:54→21:19)
[2020-05-28] MEDS: DIGOXIN INJ 0.5 MG/2 ML AMPULE IV SCH (09:54)
[2020-05-28] MEDS: MAGNESIUM OXIDE 400 MG TABLET PO SCH ×2 (09:54→17:33)
[2020-05-28] MEDS: TIMOLOL MALEATE 0.5% OPH SOLN 5 ML OU SCH ×2 (09:54→21:21)
[2020-05-28] MEDS: ACETAMINOPHEN 325 MG TABLET PO PRN (09:56)
[2020-05-28] MEDS: HEPARIN SOD (PORCINE) 5,000 UNIT/ML 1 ML VIAL SUBCUT SCH ×2 (09:56→21:19)
[2020-05-28] MEDS: BRIMONIDINE TARTRATE 0.2% OPH SOLN 5 ML OU SCH ×2 (09:57→21:21)
--- NOTE | 2020-05-28 13:50 | PDOC PROGRESS REPORT ---
Subjective Progress Note for:: 05/28/20 Subjective:: 70-year-old female with a loculated parapneumonic effusion. She appears to be comfortable in bed. She said she does not really get up from bed. She is still on Cardizem drip however she did convert to sinus rhythm today. Dr. Morales suggest to still leave her on the Cardizem drip at 5 mg/h. She is also on sotalol. Evaluation by Dr. Lovett today suggest that the size of the effusion is improving and although there remains a posterolateral position fluid collect ion this is going to be attempted to be drained by interventional radiologist. atient's condition is grossly unchanged this morning. She states that she always feels bad and she is in her usual state. She still draining quite a bit of fluid, 1500 cc overnight. Plan is to proceed with a CT-guided drainage of the posterior collection of fluid. She does have an anterior chest tube in place which would not be removed 05/27 patient seen on rounds. She denies any new complaints. She denies any chest pain 05/28 patient's condition remains slightly unchanged. Breathing is comfortable Reason For Visit: COVID 19,PNEUMONIA Physical Exam Vital Signs: Temp Pulse Resp BP Pulse Ox 97.9 F 85 18 101/55 L 93 05/28/20 10:48 05/28/20 10:48 05/28/20 10:48 05/28/20 10:48 05/28/20 10:48 Pulse Oximeter Nocturnal Start: 05/17/20 16:50 Freq: RTQ4 Status: Complete Protocol: Document 05/18/20 05:07 [facility] (Rec: 05/18/20 05:55 [facility] [id number]) Nocturnal Pulse Oximetry Equipment Usage Equipment Discontinued Continuous SpO2 Machine # N-2 Intake & Output 05/27/20 05/28/20 05/29/20 06:59 06:59 06:59 Intake Total 820 1210 200 Output Total 100 150 Balance 720 1060 200 Weight 117.9 kg 117.2 kg General appearance: PRESENT: no acute distress, morbidly obese Head exam: PRESENT: atraumatic, normocephalic Eye exam: PRESENT: conjunctiva pink, EOMI. ABSENT: scleral icterus Mouth exam: PRESENT: moist, tongue midline Neck exam: ABSENT: carotid bruit, JVD, lymphadenopathy, thyromegaly Respiratory exam: PRESENT: decreased breath sounds, unlabored. ABSENT: rales, rhonchi, tachypnea, wheezes Cardiovascular exam: PRESENT: RRR, +S1, +S2. ABSENT: diastolic murmur, rubs, systolic murmur GI/Abdominal exam: PRESENT: normal bowel sounds, soft. ABSENT: distended, guarding, mass, organolmegaly, rebound, tenderness Rectal exam: PRESENT: deferred Extremities exam: PRESENT: full ROM, +1 edema. ABSENT: calf tenderness, clubbing, pedal edema Neurological exam: PRESENT: alert, awake, oriented to person, oriented to place, oriented to time, oriented to situation, CN II-XII grossly intact. ABSENT: motor sensory deficit Psychiatric exam: PRESENT: appropriate affect, normal mood. ABSENT: homicidal ideation, suicidal ideation Skin exam: PRESENT: dry, intact, warm. ABSENT: cyanosis, rash Results Laboratory Results: 05/28/20 04:46 05/28/20 04:46 05/28/20 05/28/20 04:46 04:46 WBC 6.3 RBC 3.34 L Hgb 9.5 L Hct 29.0 L MCV 87 MCH 28.4 MCHC 32.6 RDW 17.2 H Plt Count 404 Seg Neutrophils % 65.4 Sodium 137.1 Potassium 4.5 Chloride 97 L Carbon Dioxide 35 H Anion Gap 5 BUN 9 Creatinine 0.39 L Est GFR ( Amer) > 60 Glucose 113 H Calcium 8.8 05/13/20 02:15 Troponin I < 0.012 Impressions: Chest Ultrasound 05/19/20 00:00 IMPRESSION: Loculated small right pleural effusion. Abdomen/Pelvis CT 05/19/20 13:00 IMPRESSION: Multiloculated right pleural effusion with right lower lobe airspace disease. Rim enhancing loculation of fluid in the posterior right costophrenic sulcus abutting the posterior right lobe liver Chest Fluoroscopy 05/21/20 00:00 IMPRESSION: IMAGE(S) OBTAINED DURING PROCEDURE. Chest CT 05/24/20 00:00 IMPRESSION: 1. Right hemithorax chest tube with diminished volume of a previously characterized right-sided pleural effusion which appears to be partially loculated. A tiny right apical pneumothorax is demonstrated. 2. Limited evaluation of the upper abdomen demonstrates a partially imaged flu id collection adjacent to the right hepatic lobe and the appearance of pneumobilia. Other chronic and incidental findings as detailed above. Chest X-Ray 05/28/20 06:00 IMPRESSION: INTERVAL REMOVAL OF THE RIGHT CHEST TUBE. OTHERWISE NO CHANGE. Assessment and Plan - Diagnosis (1) Abdominal visceral abscess Is this a current diagnosis for this admission?: Yes Plan: Abdominal CT did also worm picker a small [id number] rim-enhancing lesion which could represent small abscess noted next to the right liver lobe. I discussed with the radiologist who confirmed that this lesion is likely not in the right pleura and likely in the abdomen but is quite small and may or may not represent an actual abscess. After discussion, plan was to first drain the loculated pleural effusions and continue Augmentin and then reimage the abdomen to see if any progression of th is questionable abscess. Fevers remain resolved. 05/25 Plan as above (2) Community acquired pneumonia Qualifiers: Laterality: right Lung location: lower lobe of lung Qualified Code(s): J18.9 - Pneumonia, unspecified organism Is this a current diagnosis for this admission?: Yes Plan: Fevers and leukocytosis have resolved. Completed 5 days of azithromycin and ceftriaxone. (3) Loculated pleural effusion Is this a current diagnosis for this admission?: Yes Plan: Complicated right parapneumonic with multiple loculations on CT. pH on pleural fluid is misleading as sample was collected after alteplase and dornase had been administered. However, no rey growth on stain/culture nor purulence to suggest empyema. Continue Augmentin. Will need 2 to 3 weeks total of antibiotics. Chest tube placed 05/20 and drained nicely but dislodged. 2nd posterior chest tube also dislodged on 05/21 and removed. Currently, patient has anterior chest tube. TPA/dornase augusto being administered by Dr. Lovett (day 3/3 doses so far). Plan for repeat CAT scan tomorrow to reevaluate loculations.... If this fails, next step will be tertiary transfer for VATS. 05/[address] Lovett. No indication for transfer to a tertiary center at this time as effusion appears to be resolving 05/26 Chest tube for posterior loculation 05/28 chest tube removed and patient remains hemodynamically stable (4) Obesity (BMI 30-39.9) Is this a current diagnosis for this admission?: Yes Plan: She states she has done sleep study in the past but was never diagnosed with sleep apnea. Does not use any NIPPV at home. She was certainly benefit from outpatient sleep study upon discharge. (5) Permanent atrial fibrillation Is this a current diagnosis for this admission?: Yes Plan: Heart rate controlled today. Still on sotalol. Dr. Morales recommends continuing diltiazem drip at 7.5 until lung issues have been addressed. Xarelto remains on hold. SQ Heparin in the meantime. Monitor on telemetry. 05/25 Cardizem drip to be continued as per cardiology recommendation 05/26 Patient remains on Sotalol, Xarelto 05/28 she has been taken off Cardizem drip. She is now on digoxin. We will continue to monitor (6) Pneumothorax, right Is this a current diagnosis for this admission?: Yes - Plan Summary Summary: Now that she appears to be improving and stable she will need physical therapy and likely rehab at discharge - Time Time Spent with patient: 15-24 minutes Anticipated Discharge Disposition: [facility] Facility Anticipated Discharge Timeframe: within 48 hours
--- NOTE | 2020-05-28 14:17 | PDOC PROGRESS REPORT ---
Subjective Progress Note for:: 05/28/20 Subjective:: 70-year-old female with a loculated parapneumonic effusion. Patient denies chest pain today. Her chest tube was removed yesterday. She denies shortness of breath today. She denies abdominal pain, nausea, vomiting, dizziness, melena, hematochezia, hematemesis, headache, blurry vision. She refused to have a CT guided aspiration of the remaining pleural fluid several days ago. Reason For Visit: COVID 19,PNEUMONIA Physical Exam Vital Signs: Temp Pulse Resp BP Pulse Ox 97.9 F 85 18 101/55 L 93 05/28/20 10:48 05/28/20 10:48 05/28/20 10:48 05/28/20 10:48 05/28/20 10:48 Pulse Oximeter Nocturnal Start: 05/17/20 16:50 Freq: RTQ4 Status: Complete Protocol: Document 05/18/20 05:07 [facility] (Rec: 05/18/20 05:55 [facility] [id number]) Nocturnal Pulse Oximetry Equipment Usage Equipment Discontinued Continuous SpO2 Machine # [id number] Intake & Output 05/27/20 05/28/20 05/29/20 06:59 06:59 06:59 Intake Total 820 1210 200 Output Total 100 150 Balance 720 1060 200 Weight 117.9 kg 117.2 kg Exam: General appearance: PRESENT: no acute distress, obese Head exam: PRESENT: atraumatic, normocephalic Eye exam: PRESENT: EOMI, PERRLA. ABSENT: scleral icterus Mouth exam: PRESENT: moist, neck supple Neck exam: ABSENT: meningismus, tenderness, thyromegaly, tracheal deviation Respiratory exam: PRESENT: unlabored. ABSENT: tachypnea Cardiovascular exam: ABSENT: tachycardia GI/Abdominal exam: PRESENT: soft. ABSENT: distended, firm, tenderness Rectal exam: PRESENT: deferred Extremities exam: ABSENT: clubbing Musculoskeletal exam: ABSENT: deformity Neurological exam: PRESENT: alert, awake, oriented to person, oriented to place, oriented to time, oriented to situation Psychiatric exam: ABSENT: agitated, anxious, depressed Focused psych exam: ABSENT: delusional Skin exam: ABSENT: cyanosis, erythema, jaundice Results Laboratory Results: 05/28/20 04:46 05/28/20 04:46 05/28/20 05/28/20 04:46 04:46 WBC 6.3 RBC 3.34 L Hgb 9.5 L Hct 29.0 L MCV 87 MCH 28.4 MCHC 32.6 RDW 17.2 H Plt Count 404 Seg Neutrophils % 65.4 Sodium 137.1 Potassium 4.5 Chloride 97 L Carbon Dioxide 35 H Anion Gap 5 BUN 9 Creatinine 0.39 L Est GFR ( Amer) > 60 Glucose 113 H Calcium 8.8 05/13/20 02:15 Troponin I < 0.012 Impressions: Chest Ultrasound 05/19/20 00:00 IMPRESSION: Loculated small right pleural effusion. Abdomen/Pelvis CT 05/19/20 13:00 IMPRESSION: Multiloculated right pleural effusion with right lower lobe airspace disease. Rim enhancing loculation of fluid in the posterior right cost ophrenic sulcus abutting the posterior right lobe liver Chest Fluoroscopy 05/21/20 00:00 IMPRESSION: IMAGE(S) OBTAINED DURING PROCEDURE. Chest CT 05/24/20 00:00 IMPRESSION: 1. Right hemithorax chest tube with diminished volume of a previ ously characterized right-sided pleural effusion which appears to be partially loculated. A tiny right apical pneumothorax is demonstrated. 2. Limited evaluation of the upper abdomen demonstrates a partially imaged fluid collection adjacent to the right hepatic lobe and the appearance of pneumobilia. Other chronic and incidental findings as detailed above. Chest X-Ray 05/28/20 06:00 IMPRESSION: INTERVAL REMOVAL OF THE RIGHT CHEST TUBE. OTHERWISE NO CHANGE. Assessment & Plan - Diagnosis (1) Community acquired pneumonia Qualifiers: Laterality: right Lung location: lower lobe of lung Qualified Code(s): J18.9 - Pneumonia, unspecified organism Is this a current diagnosis for this admission?: Yes (2) Loculated pleural effusion Is this a current diagnosis for this admission?: Yes (3) Obesity Qualifiers: Obesity type: unspecified obesity type Obesity classification: adult class 2 (BMI 35 - 39.9) Serious obesity comorbidity presence: with serious c omorbidity Body mass index: BMI 39.0-39.9 Qualified Code(s): E66.01 - Morbid (severe) obesity due to excess calories; Z68.39 - Body mass index [BMI] 39.0- 39.9, adult Is this a current diagnosis for this admission?: Yes - Time Anticipated Discharge Disposition: unknown Anticipated Discharge Timeframe: unknown - Plan Summary Plan Summary: 70-year-old female with a loculated parapneumonic effusion. The chest tube was removed yesterday. She is breathing without difficulty. Her x-ray remains unchanged. There is one area in the posterior lateral position that remains undrained. CT-guided drainage of the small remaining pocket of pleural fluid was attempted, but the pt refused. If the pt will consent to CT guided aspiration of her remaining pleural fluid, she would likely see some benefit. I do not anticipate any further surgical intervention will be required (except for CT-guided aspiration of the remaining small pocket of pleural fluid). Surgery will sign off at this time. Please renotify with any questions or concerns.
[2020-05-28] MEDS: RIVAROXABAN 10 MG TABLET PO SCH (17:33)
--- NOTE | 2020-05-28 20:48 | Progress Note ---
Provider Note Provider Note: CARDIOLOGY PROGRESS NOTE by Dr. Elodia Ferreira on 05/28/2020. SUBJECTIVE: The patient states she is feeling better. She has no shortness of breath at rest. There is no PND orthopnea. There is no chest pain or discomfort. There is no proarrhythmia on sotalol the patient remains in sinus rhythm. The patient has been started on Xarelto and there is no bleeding complications with it. There is no TIA CVA symptoms. PHYSICAL EXAMINATION: The patient is morbidly obese. In no acute distress. Selected Entries 05/28/20 16:42 Temperature 98.4 F Temperature Oral Source Pulse Rate 89 Respiratory 18 Rate Blood Pressure 117/69 Blood Pressure 85 Mean BP Location Right Arm BP Position Supine O2 Sat by Pulse 93 Oximetry Oxygen Delivery Room Air Method HEAD: Is atraumatic normocephalic. PUPILS are equal round regular reactive to light accommodation extraocular movements are normal. There is no conjunctival pallor. There is no scleral icterus. ENT is negative note patient is on BiPAP. NECK: Supple. There is no JVD. Carotids are equal there is no bruits. There is no lymphadenopathy. There is no goiter. There is no accessory muscle respiration use. Trachea central. LUNGS: There is a chest tube on the right side. There is some degree of subcutaneous crepitus. Lung sounds diminished in the right base.. There is no rales of CHF. HEART: S1-S2 is heard. S1 is of normal intensity. The patient is tachycardic. There is systolic murmur left s ternal border and the apex there is no rub. ABDOMEN: Is obese. Nontender there is no hepatosplenomegaly. Bowel sounds are well heard. There is no tender areas masses. EXTREMITIES: Femorals are deep. There is no femoral bruits. Leg pulses are well felt. There is no pedal edema. There is no DVT or cellulitis. There is no cyanosis or clubbing. LEGAL SUPPORT SPECIALIST: The patient is drowsy but without any focal deficits. PSYCHIATRIC: In spite of her drowsiness the patient judgment insight are intact and affect is normal. Labs- All tests 24 hr 05/26/20 05/28/20 05/28/20 13:10 04:46 04:46 WBC 6.3 RBC 3.34 L Hgb 9.5 L Hct 29.0 L MCV 87 MCH 28.4 MCHC 32.6 RDW 17.2 H Plt Count 404 Lymph % (Auto) 20.6 Desha % (Auto) 11.7 Eos % (Auto) 1.3 Baso % (Auto) 1.0 Absolute Neuts (auto) 4.1 Absolute Lymphs (auto) 1.3 Absolute Monos (auto) 0.7 Absolute Eos (auto) 0.1 Absolute Basos (auto) 0.1 Seg Neutrophils % 65.4 Sodium 137.1 Potassium 4.5 Chloride 97 L Carbon Dioxide 35 H Anion Gap 5 BUN 9 Creatinine 0.39 L Est GFR ( Amer) > 60 Est GFR (MDRD) Non-Af > 60 Glucose 113 H Calcium 8.8 COVID-19 (NAN) Not Detected Chest X-Ray 05/13/20 03:03 IMPRESSION: Small right effusion with minimal adjacent airspace opacity copyright 2010 [employer]- All Rights Reserved Chest X-Ray 05/16/20 00:00 IMPRESSION: Right-sided pleural effusion demonstrates increased volume on today's examination. Otherwise stable radiographic appearance of the chest. Chest CT 05/18/20 00:00 IMPRESSION: Right pleural effusion and right lower lobe collapse. No fibrosis. Chest Ultrasound 05/19/20 00:00 IMPRESSION: Loculated small right pleural effusion. Abdomen/Pelvis CT 05/19/20 13:00 IMPRESSION: Multiloculated right pleural effusion with right lower lobe airspace disease. Rim enhancing loculation of fluid in the posterior right costophrenic sulcus abutting the posterior right lobe liver Chest X-Ray 05/20/20 00:00 IMPRESSION: INTERVAL PLACEMENT OF A RIGHT CHEST TUBE. SMALL APICAL PNEUMOTHORAX, LESS THAN 10%. OTHERWISE NO SIGNIFICANT CHANGE. Chest Fluoroscopy 05/21/20 00:00 IMPRESSION: IMAGE(S) OBTAINED DURING PROCEDURE. Chest X-Ray 05/21/20 00:00 IMPRESSION: 1. Right chest tube with proximal port at the level of the chest wall; consider adjustment replacement. 2. Moderate right hydropneumothorax persists. Chest X-Ray 05/21/20 00:00 IMPRESSION: INTERVAL PLACEMENT OF A RIGHT CHEST TUBE WITH IMPROVEMENT IN THE RIGHT PNEUMOTHORAX. Chest X-Ray 05/21/20 00:00 IMPRESSION: IMAGE(S) OBTAINED DURING PROCEDURE. Chest X-Ray 05/21/20 00:00 IMPRESSION: NO ACUTE FINDINGS.Right chest tube appears in stable position.Small residual right pneumothorax. Right basilar consolidation - pleural effusion. Chest X-Ray 05/21/20 11:30 IMPRESSION: Right chest tube has withdrawn with the tip now at the outer edge of the rib margin. Similar right pneumothorax. Similar right basilar consolidation - pleural effusion. Chest X-Ray 05/22/20 00:00 IMPRESSION: Unchanged radiographic appearance of the chest. Chest X-Ray 05/23/20 06:00 IMPRESSION: Right chest tube remains in place. Small to moderate right pleural effusion unchanged. No pneumothorax. Chest CT 05/24/20 00:00 IMPRESSION: 1. Right hemithorax chest tube with diminished volume of a previously characterized right-sided pleural effusion which appears to be partially loculated. A tiny right apical pneumothorax is demonstrated. 2. Limited evaluation of the upper abdomen demonstrates a partially imaged fluid collection adjacent to the right hepatic lobe and the appearance of pneumobilia. Other chronic and incidental findings as detailed above. Chest X-Ray 05/24/20 06:00 IMPRESSION: OVERALL NO SIGNIFICANT CHANGE. PERSISTENT DENSITY IN THE RIGHT LUNG AND PERSISTENT RIGHT PLEURAL EFFUSION. SMALL RIGHT PNEUMOTHORAX. Chest X-Ray 05/28/20 06:00 IMPRESSION: INTERVAL REMOVAL OF THE RIGHT CHEST TUBE. OTHERWISE NO CHANGE. IMPRESSION/RECOMMENDATION: 1. Paroxysmal Atrial fibrillation. Patient back in sinus rhythm. Continue Xarelto. In view of the tenuous blood pressure we will stop the patient's Cardizem drip/infusion. Continue sotalol. We will start the patient also on digoxin 0.25 mg IV push daily. Will check dig level in the a.m. and also get an EKG. 2. Pneumonia: Continue antibiotics continue BiPAP as needed and oxygen supplementation. This seems to have resolved. 3. Right pleural effusion, status post drainage with chest tube, patient developed pneumothorax . The patient's chest tube has been removed. 4 history of hypertension: At present blood pressure on the lower side. 5. History of hemochromatosis: At present does not seem to be any acute problems from this. The patient CT does not show enlarged liver. 6. COVID test code19 test came back negative 7. Obesity. Medications reviewed. Medical regimen and management plan discussed with attending physician, and nephrology.. Medical decision making is of moderate complexity. 40 minutes spent on this patient with more than 50% of time spent in direct patient care.
[2020-05-28] MEDS: MELATONIN 5 MG TABLET PO SCH (21:22)
[2020-05-28] MEDS: MAG HYDROX/AL HYDROX/SIMETH SUSP 30 ML UDCUP PO PRN (22:16)
[2020-05-29] MEDS: OXYCODONE-ACETAMINOPHEN 5-325 MG TABLET PO PRN ×3 (03:29→20:05)
[2020-05-29] MEDS: PANTOPRAZOLE SODIUM 20 MG TABLET.DR PO SCH (06:06)
--- NOTE | 2020-05-29 06:35 | EKG REPORT ---
SEVERITY:- ABNORMAL ECG - ATRIAL FIBRILLATION LOW VOLTAGE THROUGHOUT NONSPECIFIC T ABNORMALITIES, DIFFUSE LEADS : Confirmed by: Vish Farmer MD 29-May-2020 06:34:52
[2020-05-29] MEDS: MAGNESIUM OXIDE 400 MG TABLET PO SCH ×2 (10:01→17:24)
[2020-05-29] MEDS: DOCUSATE SODIUM 100 MG CAPSULE PO SCH ×2 (10:01→17:24)
[2020-05-29] MEDS: DIGOXIN INJ 0.5 MG/2 ML AMPULE IV SCH (10:02)
[2020-05-29] MEDS: TIMOLOL MALEATE 0.5% OPH SOLN 5 ML OU SCH ×2 (10:05→22:12)
[2020-05-29] MEDS: BRIMONIDINE TARTRATE 0.2% OPH SOLN 5 ML OU SCH ×2 (10:08→22:12)
[2020-05-29] MEDS: ONDANSETRON 4 MG TAB.RAPDIS PO PRN (10:10)
[2020-05-29] MEDS: SOTALOL HCL 80 MG TABLET PO SCH ×2 (10:10→22:07)
[2020-05-29] MEDS: FLUTICASONE/VILANTEROL 100-25 MCG/DOSE IH SCH (10:21)
--- NOTE | 2020-05-29 13:21 | PDOC PROGRESS REPORT ---
Subjective Progress Note for:: 05/29/20 Subjective:: 70-year-old female with a loculated parapneumonic effusion. She appears to be comfortable in bed. She said she does not really get up from bed. She is still on Cardizem drip however she did convert to sinus rhythm today. Dr. Morales suggest to still leave her on the Cardizem drip at 5 mg/h. She is also on sotalol. Evaluation by Dr. Lovett today suggest that the size of the effusion is improving and although there remains a posterolateral position fluid collect ion this is going to be attempted to be drained by interventional radiologist. atient's condition is grossly unchanged this morning. She states that she always feels bad and she is in her usual state. She still draining quite a bit of fluid, 1500 cc overnight. Plan is to proceed with a CT-guided drainage of the posterior collection of fluid. She does have an anterior chest tube in place which would not be removed 05/27 patient seen on rounds. She denies any new complaints. She denies any chest pain 05/28 patient's condition remains slightly unchanged. Breathing is comfortable 05/29 patient condition remains slightly stable. She however is still on digoxin IV. Her heart rate is still in the 90s and better controlled. Digoxin level is 0.61. We will discussed with Dr. Morales about changing patient to p.o. digoxin and she would then need to be monitored prior to discharge. However if she remains stable on p.o. digoxin probably can be discharged 24 hours after that. Reason For Visit: COVID 19,PNEUMONIA Physical Exam Vital Signs: Temp Pulse Resp BP Pulse Ox 98.1 F 93 16 106/68 91 L 05/29/20 07:59 05/29/20 09:05 05/29/20 09:05 05/29/20 07:47 05/29/20 09:05 Pulse Oximeter Nocturnal Start: 05/17/20 16:50 Freq: RTQ4 Status: Complete Protocol: Document 05/18/20 05:07 [facility] (Rec: 05/18/20 05:55 [facility] [id number]) Nocturnal Pulse Oximetry Equipment Usage Equipment Discontinued Continuous SpO2 Machine # [id number] Intake & Output 05/28/20 05/29/20 05/30/20 06:59 06:59 06:59 Intake Total 1210 875 Output Total 150 Balance 1060 875 Weight 117.2 kg 116.9 kg General appearance: PRESENT: no acute distress, morbidly obese, well-developed, well-nourished Head exam: PRESENT: atraumatic Eye exam: PRESENT: conjunctiva pink, EOMI, PERRLA. ABSENT: scleral icterus Ear exam: PRESENT: normal external ear exam Mouth exam: PRESENT: moist, tongue midline Neck exam: ABSENT: carotid bruit, JVD, lymphadenopathy, thyromegaly Respiratory exam: PRESENT: clear to auscultation aroldo. ABSENT: rales, rhonchi, wheezes Cardiovascular exam: PRESENT: irregular rhythm, +S1, +S2. ABSENT: diastolic murmur, rubs, systolic murmur Pulses: PRESENT: normal dorsalis pedis pul GI/Abdominal exam: PRESENT: normal bowel sounds, soft. ABSENT: distended, guarding, mass, organolmegaly, rebound, tenderness Rectal exam: PRESENT: deferred Extremities exam: PRESENT: full ROM, +2 edema. ABSENT: calf tenderness, clubbing, pedal edema Neurological exam: PRESENT: alert, awake, oriented to person, oriented to place, oriented to time, oriented to situation, CN II-XII grossly intact. ABSENT: motor sensory deficit Psychiatric exam: PRESENT: appropriate affect, normal mood. ABSENT: homicidal ideation, suicidal ideation Skin exam: PRESENT: warm, other - hyperpigmentation. ABSENT: cyanosis, rash Results Laboratory Results: 05/28/20 04:46 05/28/20 04:46 05/13/20 02:15 Troponin I < 0.012 Impressions: Chest Ultrasound 05/19/20 00:00 IMPRESSION: Loculated small right pleural effusion. Abdomen/Pelvis CT 05/19/20 13:00 IMPRESSION: Multiloculated right pleural effusion with right lower lobe airspace disease. Rim enhancing loculation of fluid in the posterior right costophrenic sulcus abutting the posterior right lobe liver Chest Fluoroscopy 05/21/20 00:00 IMPRESSION: IMAGE(S) OBTAINED DURING PROCEDURE. Chest CT 05/24/20 00:00 IMPRESSION: 1. Right hemithorax chest tube with diminished volume of a previously characterized right-sided pleural effusion which appears to be partially loculated. A tiny right apical pneumothorax is demonstrated. 2. Limited evaluation of the upper abdomen demonstrates a partially imaged fluid collection adjacent to the right hepatic lobe and the appearance of pneumobilia. Other chronic and incidental findings as detailed above. Chest X-Ray 05/28/20 06:00 IMPRESSION: INTERVAL REMOVAL OF THE RIGHT CHEST TUBE. OTHERWISE NO CHANGE. Assessment and Plan - Diagnosis (1) Abdominal visceral abscess Is this a current diagnosis for this admission?: Yes Plan: Abdominal CT did also hop picker a small [id number] rim-enhancing lesion which could represent small abscess noted next to the right liver lobe. I discussed with the radiologist who confirmed that this lesion is likely not in the right pleura and likely in the abdomen but is quite small and may or may not represent an actual abscess. After discussion, plan was to first drain the loculated pleural effusions and continue Augmentin and then reimage the abdomen to see if any progression of this questionable abscess. Fevers remain resolved. 05/25 Plan as above (2) Community acquired pneumonia Qualifiers: Laterality: right Lung location: lower lobe of lung Qualified Code(s): J18.9 - Pneumonia, unspecified organism Is this a current diagnosis for this admission?: Yes (3) Loculated pleural effusion Is this a current diagnosis for this admission?: Yes Plan: Complicated right parapneumonic with multiple loculations on CT. pH on pleural fluid is misleading as sample was collected after alteplase and dornase had been administered. However, no rey growth on stain/culture nor purulence to suggest empyema. Continue Augmentin. Will need 2 to 3 weeks total of antibiotics. Chest tube placed 05/20 and drained nicely but dislodged. 2nd posterior chest tube also dislodged on 05/21 and removed. Currently, patient has anterior chest tube. TPA/dornase augusto being administered by Dr. Lovett (day 3/3 doses so far). Plan for repeat CAT scan tomorrow to reevaluate loculations.... If this fails, next step will be tertiary transfer for VATS. 05/[address] Lovett. No indication for transfer to a tertiary center at this time as effusion appears to be resolving 05/26 Chest tube for posterior loculation 05/28 chest tube removed and patient remains hemodynamically stable (4) Obesity (BMI 30-39.9) Is this a current diagnosis for this admission?: Yes (5) Permanent atrial fibrillation Is this a current diagnosis for this admission?: Yes Plan: Heart rate controlled today. Still on sotalol. Dr. Morales recommends continuing diltiazem drip at 7.5 until lung issues have been addressed. Xarelto remains on hold. SQ Heparin in the meantime. Monitor on telemetry. 05/25 Cardizem drip to be continued as per cardiology recommendation 05/26 Patient remains on Sotalol, Xarelto 05/28 she has been taken off Cardizem drip. She is now on digoxin. We will continue to monitor (6) Pneumothorax, right Is this a current diagnosis for this admission?: Yes - Plan Summary Summary: now that she appears to be improving and stable she will need physical therapy and likely rehab at discharge however she is currently still on IV digoxin. Patient is to be switched to oral digoxin and monitored for at least 24 hours prior to discharge. She is still also on sotalol As well as Xarelto. However she remains stable patient can likely be discharged to rehab in a.m. - Time Time Spent with patient: 15-24 minutes Anticipated Discharge Disposition: Long Term Facility Anticipated Discharge Timeframe: within 48 hours
--- NOTE | 2020-05-29 13:29 | Progress Note ---
Provider Note Provider Note: CARDIOLOGY PROGRESS NOTE by Dr. Elodia Ferreira on 05/29/2020. SUBJECTIVE: The patient states she is feeling better. She has no shortness of breath at rest. There is no PND orthopnea. There is no chest pain or discomfort. There is no proarrhythmia on sotalol the patient remains in sinus rhythm. The patient has been started on Xarelto and there is no bleeding complications with it. There is no TIA CVA symptoms. She now wants to have the loculated pleural effusion drained by radiology. Hence we will stop the patient's Xarelto. PHYSICAL EXAMINATION: The patient is morbidly obese. In no acute distress. Selected Entries 05/29/20 11:30 Temperature 97.5 F Temperature Oral Source Pulse Rate 92 Respiratory 18 Rate Blood Pressure 119/66 Blood Pressure 83 Mean BP Location Right Wrist BP Position Supine O2 Sat by Pulse 93 Oximetry Oxygen Delivery Room Air Method HEAD: Is atraumatic normocephalic. PUPILS are equal round regular reactive to light accommodation extraocular movements are normal. There is no conjunctival pallor. There is no scleral icterus. ENT is negative note patient is on BiPAP. NECK: Supple. There is no JVD. Carotids are equal there is no bruits. There is no lymphadenopathy. There is no goiter. There is no accessory muscle respiration use. Trachea central. LUNGS: There is a chest tube on the right side. There is some degree of subcutaneous crepitus. Lung sounds diminished in the right base.. There is no rales of CHF. HEART: S1-S2 is heard. S1 is of normal intensity. The patient is tachycardic. There is systolic murmur left sternal border and the apex there is no rub. ABDOMEN: Is obese. Nontender there is no hepatosplenomegaly. Bowel sounds are well heard. There is no tender areas masses. EXTREMITIES: Femorals are deep. There is no femoral bruits. Leg pulses are well felt. There is no pedal edema. There is no DVT or cellulitis. There is no cyanosis or clubbing. 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 PSYCHIATRIC: In spite of her drowsiness the patient judgment insight are intact and affect is normal. 05/29/2020 EKG: Sinus Rhythm. Diffuse nonspecific T changes. QTC is 364. Labs- All tests 24 hr 05/29/20 05:48 Digoxin 0.61 L Chest X-Ray 05/13/20 03:03 IMPRESSION: Small right effusion with minimal adjacent airspace opacity copyright 2010 [employer]- All Rights Reserved Chest X-Ray 05/16/20 00:00 IMPRESSION: Right-sided pleural effusion demonstrates increased volume on today's examination. Otherwise stable radiographic appearance of the chest. Chest CT 05/18/20 00:00 IMPRESSION: Right pleural effusion and right lower lobe collapse. No fibrosis. Chest Ultrasound 05/19/20 00:00 IMPRESSION: Loculated small right pleural effusion. Abdomen/Pelvis CT 05/19/20 13:00 IMPRESSION: Multiloculated right pleural effusion with right lower lobe airspace disease. Rim enhancing loculation of fluid in the posterior right costophrenic sulcus abutting the posterior right lobe liver Chest X-Ray 05/20/20 00:00 IMPRESSION: INTERVAL PLACEMENT OF A RIGHT CHEST TUBE. SMALL APICAL PNEUMOTHORAX, LESS THAN 10%. OTHERWISE NO SIGNIFICANT CHANGE. Chest Fluoroscopy 05/21/20 00:00 IMPRESSION: IMAGE(S) OBTAINED DURING PROCEDURE. Chest X-Ray 05/21/20 00:00 IMPRESSION: 1. Right chest tube with proximal port at the level of the chest wall; consider adjustment replacement. 2. Moderate right hydropneumothorax persists. Chest X-Ray 05/21/20 00:00 IMPRESSION: INTERVAL PLACEMENT OF A RIGHT CHEST TUBE WITH IMPROVEMENT IN THE RIGHT PNEUMOTHORAX. Chest X-Ray 05/21/20 00:00 IMPRESSION: IMAGE(S) OBTAINED DURING PROCEDURE. Chest X-Ray 05/21/20 00:00 IMPRESSION: NO ACUTE FINDINGS.Right chest tube appears in stable position.Small residual right pneumothorax. Right basilar consolidation - pleural effusion. Chest X-Ray 05/21/20 11:30 IMPRESSION: Right chest tube has withdrawn with the tip now at the outer edge of the rib margin. Similar right pneumothorax. Similar right basilar consolidation - pleural effusion. Chest X-Ray 05/22/20 00:00 IMPRESSION: Unchanged radiographic appearance of the chest. Chest X-Ray 05/23/20 06:00 IMPRESSION: Right chest tube remains in place. Small to moderate right pleural effusion unchanged. No pneumothorax. Chest CT 05/24/20 00:00 IMPRESSION: 1. Right hemithorax chest tube with diminished volume of a previously characterized right-sided pleural effusion which appears to be partially loculated. A tiny right apical pneumothorax is demonstrated. 2. Limited evaluation of the upper abdomen demonstrates a partially imaged fluid collection adjacent to the right hepatic lobe and the appearance of pneumobilia. Other chronic and incidental findings as detailed above. Chest X-Ray 05/24/20 06:00 IMPRESSION: OVERALL NO SIGNIFICANT CHANGE. PERSISTENT DENSITY IN THE RIGHT LUNG AND PERSISTENT RIGHT PLEURAL EFFUSION. SMALL RIGHT PNEUMOTHORAX. Chest X-Ray 05/28/20 06:00 IMPRESSION: INTERVAL REMOVAL OF THE RIGHT CHEST TUBE. OTHERWISE NO CHANGE. IMPRESSION/RECOMMENDATION: 1. Paroxysmal Atrial fibrillation. Patient back in sinus rhythm. . In view of the tenuous blood pressure we will stop the patient's Cardizem drip/infusion. Continue sotalol. Will discontinue the IV digoxin and start the patient on oral digoxin. 2. Pneumonia: Continue antibiotics continue BiPAP as needed and oxygen supplementation. This seems to have resolved. 3. Right pleural effusion, status post drainage with chest tube, patient developed pneumothorax . The patient's chest tube has been removed. Patient desirous of having a loculated right pleural effusion drained by radiology. Hence we will hold the patient's Xarelto. 4 history of hypertension: At present blood pressure on the lower side. 5. History of hemochromatosis: At present does not seem to be any acute problems from this. The patient CT does not show enlarged liver. 6. COVID test code19 test came back negative 7. Obesity. Medications reviewed. Medical regimen and management plan discussed with attending physician, and nephrology.. Medical decision making is of moderate complexity. 40 minutes spent on this patient with more than 50% of time spent in direct patient care.
[2020-05-29] MEDS ORDERED: ONDANSETRON 4 MG TAB.RAPDIS PO PRN (13:30)
[2020-05-29] MEDS ORDERED: ONDANSETRON HCL INJ/PF 4 MG/2 ML SDV IV PRN (13:30)
--- NOTE | 2020-05-29 16:50 | Progress Note ---
Provider Note Provider Note: Chest x-ray done on May 28 reveals left lung to be clear but right midlung still has some density. Chest tube had been removed about 48 hours ago. Patient now states that she wants to attempt for another thoracentesis. The plan had been to start her on Xarelto but this has been put on hold and I will order thoracentesis for tomorrow morning
[2020-05-29] MEDS: MAG HYDROX/AL HYDROX/SIMETH SUSP 30 ML UDCUP PO PRN (22:06)
[2020-05-29] MEDS: MELATONIN 5 MG TABLET PO SCH (22:07)
[2020-05-30] MEDS: OXYCODONE-ACETAMINOPHEN 5-325 MG TABLET PO PRN ×3 (02:29→20:08)
[2020-05-30] MEDS: PANTOPRAZOLE SODIUM 20 MG TABLET.DR PO SCH (06:11)
[2020-05-30 07:03] LABS: INTERNATIONAL RATION (INR) 1.09; PROTHROMBIN TIME 14.3 SEC (11.4-15.4)
[2020-05-30] MEDS: SOTALOL HCL 80 MG TABLET PO SCH ×2 (09:00→22:25)
[2020-05-30] MEDS: DOCUSATE SODIUM 100 MG CAPSULE PO SCH ×2 (09:00→18:02)
[2020-05-30] MEDS: MAGNESIUM OXIDE 400 MG TABLET PO SCH ×2 (09:01→18:02)
[2020-05-30] MEDS: DIGOXIN 0.125 MG TABLET PO SCH (09:02)
[2020-05-30] MEDS: FLUTICASONE/VILANTEROL 100-25 MCG/DOSE IH SCH (09:02)
[2020-05-30] MEDS: TIMOLOL MALEATE 0.5% OPH SOLN 5 ML OU SCH ×2 (09:03→22:28)
[2020-05-30] MEDS: BRIMONIDINE TARTRATE 0.2% OPH SOLN 5 ML OU SCH ×2 (09:04→22:29)
[2020-05-30] MEDS ORDERED: FENTANYL CITRATE INJ/PF 100 MCG/2 ML AMPUL ONE (14:30)
[2020-05-30] MEDS ORDERED: MIDAZOLAM 2 MG/2 ML INJ ONE (14:30)
--- NOTE | 2020-05-30 15:53 | PDOC PROGRESS REPORT ---
Subjective Progress Note for:: 05/30/20 Subjective:: Patient feels well today. She denies any shortness of breath. Abdominal pain is improved. She is agreeable to thoracentesis today. Reason For Visit: COVID 19,PNEUMONIA Physical Exam Vital Signs: Temp Pulse Resp BP Pulse Ox 97.9 F 80 20 97/32 L 94 05/30/20 11:57 05/30/20 11:57 05/30/20 11:57 05/30/20 11:57 05/30/20 11:57 Pulse Oximeter Nocturnal Start: 05/17/20 16:50 Freq: RTQ4 Status: Complete Protocol: Document 05/18/20 05:07 [facility] (Rec: 05/18/20 05:55 [facility] [email or web address]) Nocturnal Pulse Oximetry Equipment Usage Equipment Discontinued Continuous SpO2 Machine # [id number] Intake & Output 05/29/20 05/30/20 05/31/20 06:59 06:59 06:59 Intake Total 875 1136 120 Output Total 800 200 Balance 875 336 -80 Weight 116.9 kg 116.6 kg General appearance: PRESENT: no acute distress, cooperative Neck exam: ABSENT: JVD Respiratory exam: PRESENT: symmetrical, unlabored. ABSENT: tachypnea, wheezes Cardiovascular exam: PRESENT: RRR, +S1, +S2. ABSENT: tachycardia GI/Abdominal exam: PRESENT: hernia, soft. ABSENT: rebound, rigid, tenderness Neurological exam: PRESENT: alert, awake, oriented to person, oriented to place, oriented to time, oriented to situation Results Laboratory Results: 05/28/20 04:46 05/28/20 04:46 05/13/20 02:15 Troponin I < 0.012 Impressions: Chest Ultrasound 05/19/20 00:00 IMPRESSION: Loculated small right pleural effusion. Abdomen/Pelvis CT 05/19/20 13:00 IMPRESSION: Multiloculated right pleural effusion with right lower lobe airspace disease. Rim enhancing loculation of fluid in the posterior right costophrenic sulcus abutting the posterior right lobe liver Chest Fluoroscopy 05/21/20 00:00 IMPRESSION: IMAGE(S) OBTAINED DURING PROCEDURE. Chest CT 05/24/20 00:00 IMPRESSION: 1. Right hemithorax chest tube with diminished volume of a previously characterized right-sided pleural effusion which appears to be partially loculated. A tiny right apical pneumothorax is demonstrated. 2. Limited evaluation of the upper abdomen demonstrates a partially imaged fluid collection adjacent to the right hepatic lobe and the appearance of pneumobilia. Other chronic and incidental findings as detailed above. Chest X-Ray 05/28/20 06:00 IMPRESSION: INTERVAL REMOVAL OF THE RIGHT CHEST TUBE. OTHERWISE NO CHANGE. Assessment and Plan - Diagnosis (1) Loculated pleural effusion Is this a current diagnosis for this admission?: Yes Plan: Complicated right parapneumonic with multiple loculations on CT. S/P TPA/Dornase augusto x 4 doses. Augmentin Unfortunately, Radiology was only able to get about 2cc of fluid but still notes septated pockets. (2) Pneumothorax, right Is this a current diagnosis for this admission?: Yes Plan: resolved. (3) Abdominal visceral abscess Is this a current diagnosis for this admission?: Yes Plan: Radiology aspirated purulent substance from this region 05/30. Sent to lab for Gram stain and culture. Augmentin in the meantime. (4) Community acquired pneumonia Qualifiers: Laterality: right Lung location: lower lobe of lung Qualified Code(s): J18.9 - Pneumonia, unspecified organism Is this a current diagnosis for this admission?: Yes Plan: Fevers and leukocytosis have resolved. Completed 5 days of azithromycin and ceftriaxone. (5) Permanent atrial fibrillation Is this a current diagnosis for this admission?: Yes Plan: Sotalol and digoxin. Will resume Xarelto tomorrow. (6) Hemochromatosis Qualifiers: Hemochromatosis type: unspecified Qualified Code(s): E83.119 - Hemochromatosis, unspecified Is this a current diagnosis for this admission?: Yes Plan: Patient has history of hemochromatosis and does have hepatomegaly. However currently abdominal CT shows significant improvement in fatty liver disease and iron saturation is actually not high at this point. (7) Osteoarthritis of knees, bilateral Qualifiers: Osteoarthritis type: primary Qualified Code(s): M17.0 - Bilateral primary osteoarthritis of knee Is this a current diagnosis for this admission?: Yes Plan: Patient has significant ambulatory dysfunction. She admits to history of bone- on-bone osteoarthritis in her knees which limits ambulation. Gets around with a walker at home but only typically able to ambulate very short distances within the apartment. Her obesity is contributing to this problem. She is more amenable to SNF at this point if she continues not to show much impr ovement by the time of discharge. (8) Acute respiratory failure with hypoxia Is this a current diagnosis for this admission?: Yes Plan: Resolved - Time Time Spent with patient: 15-24 minutes Anticipated Discharge Disposition: tertiary vs snf Anticipated Discharge Timeframe: within 36 hours
--- NOTE | 2020-05-30 16:17 | RADIOLOGY REPORT (SQ) ---
EXAM DESCRIPTION: CT THORACENTESIS WITH IMAGING IMAGES COMPLETED DATE/TIME: 05/30/2020 3:28 pm REASON FOR STUDY: PLEURAL EFFUSION COMPARISON: None. FLUORO TIME: 9.1 Seconds of fluoroscopy was used. 4 CT fluoroscopic images were obtained and saved to PACS. LIMITATIONS: None. PROCEDURE: After obtaining informed consent and explaining the risks and benefits of conscious sedat ion,the patient agreed to the procedure. The patient was brought to the CT suite and was placed on th e CT gurney. The patient was prepped and draped in the usual sterile fashion . Axial images were obt ained for targeting of theloculated right pleural effusion. An appropriate access site was selected. IV conscious sedation was administered and physician direction by the registered nurse using 1 millig eduardo of Versed and 100 micrograms of fentanyl. Physiologic monitoring was provided before, during, an d after sedation. The total sedation time was 45 minutes. Documentation face to face time, the performing proceduralist, spent monitoring the patient: [address] scanners at this facility use dose modulation, iterative reconstruction, and/or weight based d osing when appropriate to reduce radiation dose to as low as reasonably achievable (ALARA). [facility]: Dose Right [facility]: CareDose [facility]: Dose Right [facility]: Teradose 4D [facility]: [employer] After sterile skin prep and local lidocaine for skin and deep tissue anesthesia, a 6 German Safe-T-Ce ntesis needle was advanced into the loculated fluid collection. Attempts to aspirate were unsuccessf ul, only 2 mL of fluid was obtained. There were no immediate complications. IMPRESSION: ATTEMPTED ASPIRATION OF THE LOCULATED RIGHT PLEURAL EFFUSION WAS UNSUCCESSFUL. ONLY 2 M L OF FLUID COULD BE OBTAINED. COMMENT: Patient medication list reviewed: Yes- Quality ID# [id number]:Eligible professional attests to doc umenting in the medical record they obtained, updated, or reviewed the patient's current medications. . Quality ID 145: Final reports for procedures using fluoroscopy that document radiation exposure jose ranjan, or exposure time and number of fluorographic images (if radiation exposure indices are not avail able) Quality ID # [id number]: Final reports with documentation of one or more dose reduction techniques (e.g., Au tomated exposure control, adjustment of the mA and/or kV according to patient size, use of iterative reconstruction technique) TECHNICAL DOCUMENTATION: JOB ID: [id number] 2010 [employer]- All Rights Reserved Reading location - IP/workstation name: [email or web address]
--- NOTE | 2020-05-30 16:21 | RADIOLOGY REPORT (SQ) ---
EXAM DESCRIPTION: CT DRAINAGE RETRO/PERITONEAL IMAGES COMPLETED DATE/TIME: 05/30/2020 3:28 pm REASON FOR STUDY: LIVER ABSCESS COMPARISON: None. TECHNIQUE: After obtaining informed consent and explaining the risks and benefits of conscious sedat ion,the patient agreed to the procedure. The patient was brought to the CT suite and was placed on th e CT gurney. The patient was prepped and draped in the usual sterile fashion. Axial images were obta ined for targeting of thethe subcapsular hepatic fluid collection. An appropriate access site was kirit ected. IV conscious sedation was administered and physician direction by the registered nurse using 1 milligrams of Versed and 100 micrograms of fentanyl. Physiologic monitoring was provided before, dur ing, and after sedation. The total sedation time was 45 minutes. Documentation face to face time, the performing proceduralist, spent monitoring the patient: [address] of the liver was performed to localize an approach for the fluid aspiration. A per cutaneous site was marked. Time out was performed. After skin prep and local lidocaine for skin and deep tissue anesthesia, an 18 gauge needle was adva nced into the subcapsular fluid collection. 25 mL of purulent fluid was aspirated. No immediate pos tprocedure complications. Total of 9.[address] fluoro was used. 4 CT Fluoroscopic images were obtained and saved to PACS. All CT scanners at this facility use dose modulation, iterative reconstruction, and/or weight based d osing when appropriate to reduce radiation dose to as low as reasonably achievable (ALARA). [facility]: Dose Right [facility]: CareDose [facility]: Dose Right [facility]: Teradose 4D [facility]: [employer] RADIATION DOSE: mGy. LIMITATIONS: None. FINDINGS: CT guided abscess aspiration as detailed above. IMPRESSION: CT GUIDED ABSCESS ASPIRATION PERFORMED ABOVE. NO IMMEDIATE COMPLICATIONS. COMMENT: Patient medication list reviewed:Yes- Quality ID# [id number]:Eligible professional attests to docu menting in the medical record they obtained, updated, or reviewed the patient's current medications.. Quality ID 145: Final reports for procedures using fluoroscopy that document radiation exposure jose ranjan, or exposure time and number of fluorographic images (if radiation exposure indices are not avail able) TECHNICAL DOCUMENTATION: JOB ID: [id number] Quality ID # [id number]: Final reports with documentation of one or more dose reduction techniques (e.g., A utomated exposure control, adjustment of the mA and/or kV according to patient size, use of iterative reconstruction technique) 2010 [employer]- All Rights Reserved Reading location - IP/workstation name: [email or web address]
--- NOTE | 2020-05-30 18:46 | Progress Note ---
Provider Note Provider Note: CARDIOLOGY PROGRESS NOTE by Dr. Elodia Ferreira on 05/30/2020. SUBJECTIVE: The patient denies any shortness of breath or chest pain or discomfort. There is no PND orthopnea or leg edema. The patient is now back in atrial fibrillation with controlled ventricular response. There is no proarrhythmia on sotalol. Xarelto has been held for the possible CT-guided aspiration of the loculated right pleural effusion. PHYSICAL EXAMINATION: The patient morbidly obese. In no acute distress Selected Entries 05/30/20 07:36 Temperature 97.5 F Temperature Oral Source Pulse Rate 85 Respiratory 19 Rate Blood Pressure 111/51 L Blood Pressure 71 Mean BP Location Left Arm BP Position Sitting O2 Sat by Pulse 91 L Oximetry Oxygen Delivery Room Air Method HEAD: Is atraumatic normocephalic. PUPILS are equal round regular reactive to light accommodation extraocular movements are normal. There is no conjunctival pallor. There is no scleral icterus. ENT is negative note patient is on BiPAP. NECK: Supple. There is no JVD. Carotids are equal there is no bruits. There is no lymphadenopathy. There is no goiter. There is no accessory muscle respiration use. Trachea central. LUNGS: There is a chest tube on the right side. There is some degree of subcutaneous crepitus. Lung sounds diminished in the right base.. There is no rales of CHF. HEART: S1-S2 is heard. S1 is of variable intensity. The patient is tachycardic. There is systolic murmur left sternal border and the apex there is no rub. ABDOMEN: Is obese. Nontender there is no hepatosplenomegaly. Bowel sounds are well heard. There is no tender areas masses. EXTREMITIES: Femorals are deep. There is no femoral bruits. Leg pulses are well felt. There is no pedal edema. There is no DVT or cellulitis. There is no cyanosis or clubbing. SPRAYER HAND: The patient is drowsy but without any focal deficits. PSYCHIATRIC: In spite of her drowsiness the patient judgment insight are intact and affect is normal. Labs- All tests 24 hr 05/30/20 06:10 PT 14.3 INR 1.09 Chest X-Ray 05/13/20 03:03 IMPRESSION: Small right effusion with minimal adjacent airspace opacity copyright 2011 [email or web address]- All Rights Reserved Chest X-Ray 05/16/20 00:00 IMPRESSION: Right-sided pleural effusion demonstrates increased volume on today's examination. Otherwise stable radiographic appearance of the chest. Chest CT 05/18/20 00:00 IMPRESSION: Right pleural effusion and right lower lobe collapse. No fibrosis. Chest Ultrasound 05/19/20 00:00 IMPRESSION: Loculated small right pleural effusion. Abdomen/Pelvis CT 05/19/20 13:00 IMPRESSION: Multiloculated right pleural effusion with right lower lobe airspace disease. Rim enhancing loculation of fluid in the posterior right costophrenic sulcus abutting the posterior right lobe liver Chest X-Ray 05/20/20 00:00 IMPRESSION: INTERVAL PLACEMENT OF A RIGHT CHEST TUBE. SMALL APICAL PNEUMOTHORAX, LESS THAN 10%. OTHERWISE NO SIGNIFICANT CHANGE. Chest Fluoroscopy 05/21/20 00:00 IMPRESSION: IMAGE(S) OBTAINED DURING PROCEDURE. Chest X-Ray 05/21/20 00:00 IMPRESSION: 1. Right chest tube with proximal port at the level of the chest wall; consider adjustment replacement. 2. Moderate right hydropneumothorax persists. Chest X-Ray 05/21/20 00:00 IMPRESSION: INTERVAL PLACEMENT OF A RIGHT CHEST TUBE WITH IMPROVEMENT IN THE RIGHT PNEUMOTHORAX. Chest X-Ray 05/21/20 00:00 IMPRESSION: IMAGE(S) OBTAINED DURING PROCEDURE. Chest X-Ray 05/21/20 00:00 IMPRESSION: NO ACUTE FINDINGS.Right chest tube appears in stable position.Small residual right pneumothorax. Right basilar consolidation - pleural effusion. Chest X-Ray 05/21/20 11:30 IMPRESSION: Right chest tube has withdrawn with the tip now at the outer edge of the rib margin. Similar right pneumothorax. Similar right basilar consolidation - pleural effusion. Chest X-Ray 05/22/20 00:00 IMPRESSION: Unchanged radiographic appearance of the chest. Chest X-Ray 05/23/20 06:00 IMPRESSION: Right chest tube remains in place. Small to moderate right pleural effusion unchanged. No pneumothorax. Chest CT 05/24/20 00:00 IMPRESSION: 1. Right hemithorax chest tube with diminished volume of a previously characterized right-sided pleural effusion which appears to be partially loculated. A tiny right apical pneumothorax is demonstrated. 2. Limited evaluation of the upper abdomen demonstrates a partially imaged fluid collection adjacent to the right hepatic lobe and the appearance of pneumobilia. Other chronic and incidental findings as detailed above. Chest X-Ray 05/24/20 06:00 IMPRESSION: OVERALL NO SIGNIFICANT CHANGE. PERSISTENT DENSITY IN THE RIGHT LUNG AND PERSISTENT RIGHT PLEURAL EFFUSION. SMALL RIGHT PNEUMOTHORAX. Chest X-Ray 05/28/20 06:00 IMPRESSION: INTERVAL REMOVAL OF THE RIGHT CHEST TUBE. OTHERWISE NO CHANGE. Retroperitoneal Abscess Drainage 05/30/20 00:00 IMPRESSION: CT GUIDED ABSCESS ASPIRATION PERFORMED ABOVE. NO IMMEDIATE COMPLICATIONS. Thoracentesis 05/30/20 00:00 IMPRESSION: ATTEMPTED ASPIRATION OF THE LOCULATED RIGHT PLEURAL EFFUSION WAS UNSUCCESSFUL. ONLY 2 ML OF FLUID COULD BE OBTAINED. IMPRESSION/RECOMMENDATION: 1. Paroxysmal Atrial fibrillation. Patient back in atrial fibrillation.. Continue sotalol and digoxin. Xarelto being held for possible thoracentesis yesterday. 2. Pneumonia: Continue antibiotics continue BiPAP as needed and oxygen supplementation. This seems to have resolved. 3. Right pleural effusion, status post drainage with chest tube, patient developed pneumothorax . The patient's chest tube has been removed. Patient desirous of having a loculated right pleural effusion drained by radiology. Hence we will hold the patient's Xarelto. 4 history of hypertension: At present blood pressure on the lower side. 5. History of hemochromatosis: At present does not seem to be any acute problems from this. The patient CT does not show enlarged liver. 6. COVID test code19 test came back negative 7. Obesity. Medications reviewed. Medical regimen and management plan discussed with attending physician, and nephrology.. Medical decision making is of moderate complexity. 40 minutes spent on this patient with more than 50% of time spent in direct patient care.
[2020-05-30] MEDS: MELATONIN 5 MG TABLET PO SCH (22:25)
[2020-05-30] MEDS ORDERED: AMOXICILLIN TR/POT CLAVULANATE 875-125 MG TAB ONE (22:53)
[2020-05-30] MEDS: AMOXICILLIN TR/POT CLAVULANATE 875-125 MG TAB PO SCH (22:59)
[2020-05-31] MEDS: OXYCODONE-ACETAMINOPHEN 5-325 MG TABLET PO PRN ×3 (02:04→21:16)
--- NOTE | 2020-05-31 02:05 | RADIOLOGY REPORT (SQ) ---
CLINICAL INDICATION: 2HR POST LUNG DRAINAGE. Thoracentesis. Pneumothorax TECHNIQUE: A single portable AP view was obtained of the chest at 1738 hours. COMPARISON: May 28, 2020, imaging only. No report. FINDINGS: The cardiomediastinal silhouette is enlarged but stable. The lungs again demonstrate right hydropneumothorax, no adverse change when compared to prior. Left lung is grossly clear. The atelectasis right lung base. The visualized bones are unremarkable. IMPRESSION: Stable right-sided hydropneumothorax.
[2020-05-31] MEDS: PANTOPRAZOLE SODIUM 20 MG TABLET.DR PO SCH (05:21)
[2020-05-31] MEDS: DOCUSATE SODIUM 100 MG CAPSULE PO SCH ×2 (09:45→17:25)
[2020-05-31] MEDS: DIGOXIN 0.125 MG TABLET PO SCH (09:45)
[2020-05-31] MEDS: TIMOLOL MALEATE 0.5% OPH SOLN 5 ML OU SCH ×2 (09:45→21:17)
[2020-05-31] MEDS: MAGNESIUM OXIDE 400 MG TABLET PO SCH ×2 (09:45→17:25)
[2020-05-31] MEDS: AMOXICILLIN TR/POT CLAVULANATE 875-125 MG TAB PO SCH ×2 (09:45→21:17)
[2020-05-31] MEDS: SOTALOL HCL 80 MG TABLET PO SCH ×2 (09:45→21:16)
[2020-05-31] MEDS: FLUTICASONE/VILANTEROL 100-25 MCG/DOSE IH SCH (09:46)
[2020-05-31] MEDS: BRIMONIDINE TARTRATE 0.2% OPH SOLN 5 ML OU SCH ×2 (09:46→21:18)
--- NOTE | 2020-05-31 11:33 | Progress Note ---
Provider Note Provider Note: CARDIOLOGY PROGRESS NOTE by Dr. Elodia Ferreira on 05/31/2020. SUBJECTIVE: The patient denies any shortness of breath or chest pain or discomfort. There is no PND orthopnea or leg edema. The patient is now back in atrial fibrillation with controlled ventricular response. There is no proarrhythmia on sotalol. Xarelto has been held for the possible CT-guided aspiration of the loculated right pleural effusion. PHYSICAL EXAMINATION: The patient morbidly obese. In no acute distress Selected Entries 05/31/20 07:42 Temperature 97.4 F Temperature Oral Source Pulse Rate 83 Respiratory 18 Rate Blood Pressure 110/60 Blood Pressure 76 Mean BP Location Right Arm BP Position Supine O2 Sat by Pulse 99 Oximetry Oxygen Flow 1.00 Rate Oxygen Delivery Nasal Cannula Method 05/30/20 15:22 Gram Stain - Pending Abdominal Fluid Body Fluid Culture - Preliminary Gram Negative Rods 05/30/20 15:22 Gram Stain - Cancelled Abdominal Fluid 05/30/20 15:09 Gram Stain - Pending Thoracic Fluid Body Fluid Culture - Preliminary NO GROWTH IN 1 DAY 05/19/20 15:55 Gram Stain - Final Pleural Fluid Body Fluid Culture - Final NO AEROBIC OR ANAEROBIC ORGANISMS RECOVERED 05/13/20 05:50 Blood Culture - Final Blood NO GROWTH IN 5 DAYS 05/13/20 03:50 Blood Culture - Final Blood NO GROWTH IN 5 DAYS HEAD: Is atraumatic normocephalic. PUPILS are equal round regular reactive to light accommodation extraocular movements are normal. There is no conjunctival pallor. There is no scleral icterus. ENT is negative note patient is off BiPAP. NECK: Supple. There is no JVD. Carotids are equal there is no bruits. There is no lymphadenopathy. There is no goiter. There is no accessory muscle respiration use. Trachea central. LUNGS: There is a chest tube on the right side. There is some degree of subcutaneous crepitus. Lung sounds diminished in the right base.. There is no rales of CHF. HEART: S1-S2 is heard. S1 is of variable intensity. The patient is tachycardic. There is systolic murmur left sternal border and the apex there is no rub. ABDOMEN: Is obese. Nontender there is no hepatosplenomegaly. Bowel sounds are well heard. There is no tender areas masses. EXTREMITIES: Femorals are deep. There is no femoral bruits. Leg pulses are well felt. There is no pedal edema. There is no DVT or cellulitis. There is no cyanosis or clubbing. [employer] ARCHITECT: The patient is drowsy but without any focal deficits. PSYCHIATRIC: In spite of her drowsiness the patient judgment insight are intact and affect is normal. Chest X-Ray 05/13/20 03:03 IMPRESSION: Small right effusion with minimal adjacent airspace opacity copyright 2010 [employer]- All Rights Reserved Chest X-Ray 05/16/20 00:00 IMPRESSION: Right-sided pleural effusion demonstrates increased volume on today's examination. Otherwise stable radiographic appearance of the chest. Chest CT 05/18/20 00:00 IMPRESSION: Right pleural effusion and right lower lobe collapse. No fibrosis. Chest Ultrasound 05/19/20 00:00 IMPRESSION: Loculated small right pleural effusion. Abdomen/Pelvis CT 05/19/20 13:00 IMPRESSION: Multiloculated right pleural effusion with right lower lobe airspace disease. Rim enhancing loculation of fluid in the posterior right costophrenic sulcus abutting the posterior right lobe liver Chest X-Ray 05/20/20 00:00 IMPRESSION: INTERVAL PLACEMENT OF A RIGHT CHEST TUBE. SMALL APICAL PNEUMOTHORAX, LESS THAN 10%. OTHERWISE NO SIGNIFICANT CHANGE. Chest Fluoroscopy 05/21/20 00:00 IMPRESSION: IMAGE(S) OBTAINED DURING PROCEDURE. Chest X-Ray 05/21/20 00:00 IMPRESSION: 1. Right chest tube with proximal port at the level of the chest wall; consider adjustment replacement. 2. Moderate right hydropneumothorax persists. Chest X-Ray 05/21/20 00:00 IMPRESSION: INTERVAL PLACEMENT OF A RIGHT CHEST TUBE WITH IMPROVEMENT IN THE RIGHT PNEUMOTHORAX. Chest X-Ray 05/21/20 00:00 IMPRESSION: IMAGE(S) OBTAINED DURING PROCEDURE. Chest X-Ray 05/21/20 00:00 IMPRESSION: NO ACUTE FINDINGS.Right chest tube appears in stable position.Small residual right pneumothorax. Right basilar consolidation - pleural effusion. Chest X-Ray 05/21/20 11:30 IMPRESSION: Right chest tube has withdrawn with the tip now at the outer edge of the rib margin. Similar right pneumothorax. Similar right basilar consolidation - pleural effusion. Chest X-Ray 05/22/20 00:00 IMPRESSION: Unchanged radiographic appearance of the chest. Chest X-Ray 05/23/20 06:00 IMPRESSION: Right chest tube remains in place. Small to moderate right pleural effusion unchanged. No pneumothorax. Chest CT 05/24/20 00:00 IMPRESSION: 1. Right hemithorax chest tube with diminished volume of a previously characterized right-sided pleural effusion which appears to be partially loculated. A tiny right apical pneumothorax is demonstrated. 2. Limited evaluation of the upper abdomen demonstrates a partially imaged fluid collection adjacent to the right hepatic lobe and the appearance of pneumobilia. Other chronic and incidental findings as detailed above. Chest X-Ray 05/24/20 06:00 IMPRESSION: OVERALL NO SIGNIFICANT CHANGE. PERSISTENT DENSITY IN THE RIGHT LUNG AND PERSISTENT RIGHT PLEURAL EFFUSION. SMALL RIGHT PNEUMOTHORAX. Chest X-Ray 05/28/20 06:00 IMPRESSION: INTERVAL REMOVAL OF THE RIGHT CHEST TUBE. OTHERWISE NO CHANGE. Retroperitoneal Abscess Drainage 05/30/20 00:00 IMPRESSION: CT GUIDED ABSCESS ASPIRATION PERFORMED ABOVE. NO IMMEDIATE COMPLICATIONS. Thoracentesis 05/30/20 00:00 IMPRESSION: ATTEMPTED ASPIRATION OF THE LOCULATED RIGHT PLEURAL EFFUSION WAS UNSUCCESSFUL. ONLY 2 ML OF FLUID COULD BE OBTAINED. Chest X-Ray 05/30/20 17:30 IMPRESSION: Stable right-sided hydropneumothorax. IMPRESSION/RECOMMENDATION: 1. Paroxysmal Atrial fibrillation. Patient back in atrial fibrillation.. Continue sotalol and digoxin. Consider restarting the patient's Xarelto. 2. Pneumonia: Continue antibiotics, the patient offBiPAP as needed and oxygen supplementation. This seems to have resolved. 3. Right pleural effusion, status post drainage with chest tube, patient developed pneumothorax . The patient's chest tube has been removed. . Unsuccessful attempt at CT-guided drainage of loculated right pleural effusion. Patient had is subcapsular purulent fluid drained. Which shows Gram negative rods. Await culture. 4 history of hypertension: At present blood pressure on the lower side. 5. History of hemochromatosis: At present does not seem to be any acute problems from this. The patient CT does not show enlarged liver. 6. COVID test code19 test came back negative 7. Obesity. Medications reviewed. Medical regimen and management plan discussed with attending physician, and nephrology.. Medical decision making is of moderate complexity. 40 minutes spent on this patient with more than 50% of time spent in direct patient care.
--- NOTE | 2020-05-31 17:55 | PDOC PROGRESS REPORT ---
Subjective Progress Note for:: 05/31/20 Subjective:: Patient doing well today. Has no complaints. Reason For Visit: COVID 19,PNEUMONIA Physical Exam Vital Signs: Temp Pulse Resp BP Pulse Ox 97.3 F 89 18 110/60 99 05/31/20 08:42 05/31/20 14:00 05/31/20 07:42 05/31/20 07:42 05/31/20 07:42 Pulse Oximeter Nocturnal Start: 05/17/20 16:50 Freq: RTQ4 Status: Complete Protocol: Document 05/18/20 05:07 [facility] (Rec: 05/18/20 05:55 [facility] [id number]) Nocturnal Pulse Oximetry Equipment Usage Equipment Discontinued Continuous SpO2 Machine # N-2 Intake & Output 05/30/20 05/31/20 06/01/20 06:59 06:59 06:59 Intake Total 1136 620 Output Total 800 650 Balance 336 -30 Weight 116.6 kg 115.5 kg General appearance: PRESENT: no acute distress, cooperative Neck exam: ABSENT: JVD Respiratory exam: PRESENT: unlabored. ABSENT: tachypnea GI/Abdominal exam: PRESENT: soft. ABSENT: tenderness Neurological exam: PRESENT: alert, awake Psychiatric exam: ABSENT: agitated, anxious Results Laboratory Results: 05/28/20 04:46 05/28/20 04:46 05/13/20 02:15 Troponin I < 0.012 Impressions: Chest Ultrasound 05/19/20 00:00 IMPRESSION: Loculated small right pleural effusion. Abdomen/Pelvis CT 05/19/20 13:00 IMPRESSION: Multiloculated right pleural effusion with right lower lobe airspace disease. Rim enhancing loculation of fluid in the posterior right costophrenic sulcus abutting the posterior right lobe liver Chest Fluoroscopy 05/21/20 00:00 IMPRESSION: IMAGE(S) OBTAINED DURING PROCEDURE. Chest CT 05/24/20 00:00 IMPRESSION: 1. Right hemithorax chest tube with diminished volume of a previously characterized right-sided pleural effusion which appears to be partially loculated. A tiny right apical pneumothorax is demonstrated. 2. Limited evaluation of the upper abdomen demonstrates a partially imaged fluid collection adjacent to the right hepatic lobe and the appearance of pneumobilia. Other chronic and incidental findings as detailed above. Retroperitoneal Abscess Drainage 05/30/20 00:00 IMPRESSION: CT GUIDED ABSCESS ASPIRATION PERFORMED ABOVE. NO IMMEDIATE COMPLICATIONS. Thoracentesis 05/30/20 00:00 IMPRESSION: ATTEMPTED ASPIRATION OF THE LOCULATED RIGHT PLEURAL EFFUSION WAS UNSUCCESSFUL. ONLY 2 ML OF FLUID COULD BE OBTAINED. Chest X-Ray 05/30/20 17:30 IMPRESSION: Stable right-sided hydropneumothorax. Assessment and Plan - Diagnosis (1) Loculated pleural effusion Is this a current diagnosis for this admission?: Yes Plan: Complicated right parapneumonic with multiple loculations on CT. S/P TPA/Dornase augusto x 4 doses. Augmentin Unfortunately, Radiology was only able to get about 2cc of fluid but still notes septated pockets. Plan to reconsult CT surgery regarding any further needs and if VATS is needed. Attempted [facility] but they are not taking any new patients at this point. Awaiting callback from CT surgery from [facility]. (2) Abdominal visceral abscess Is this a current diagnosis for this admission?: Yes Plan: Radiology aspirated purulent substance from this region 05/30. Culture growing gram-negative lyla likely Klebsiella or E. coli. Awaiting identification. Continue Augmentin in the meantime. (3) Pneumothorax, right Is this a current diagnosis for this admission?: Yes Plan: resolved. (4) Community acquired pneumonia Qualifiers: Laterality: right Lung location: lower lobe of lung Qualified Code(s): J18.9 - Pneumonia, unspecified organism Is this a current diagnosis for this admission?: Yes (5) Permanent atrial fibrillation Is this a current diagnosis for this admission?: Yes Plan: Sotalol and digoxin. Xarelto remains on hold. I will substitute for Lovenox therapeutic dose while awaiting to see if any further procedure will be needed. (6) Hemochromatosis Qualifiers: Hemochromatosis type: unspecified Qualified Code(s): E83.119 - Hemochromatosis, unspecified Is this a current diagnosis for this admission?: Yes (7) Osteoarthritis of knees, bilateral Qualifiers: Osteoarthritis type: primary Qualified Code(s): M17.0 - Bilateral primary osteoarthritis of knee Is this a current diagnosis for this admission?: Yes (8) Acute respiratory failure with hypoxia Is this a current diagnosis for this admission?: Yes Plan: Resolved - Time Time Spent with patient: Less than 15 minutes Anticipated Discharge Disposition: undetermined Anticipated Discharge Timeframe: within 36 hours
--- NOTE | 2020-05-31 18:30 | Progress Note ---
Provider Note Provider Note: Discussed case with Dr. Butch Leo, CT surgery at [facility] who reviewed her images and has accepted patient for VATS. However no bed is available such patient has been placed on a wait list.
--- NOTE | 2020-05-31 19:07 | PDOC TRANSFER SUMMARY ---
General Admission Date/PCP: 05/13/20 06:46 KAITLIN NEGRON MD Admission Date: 05/13/20 Transfer Date: 05/31/20 Accepting Facility: [facility] Accepting Physician: Dr. Butch Leo Resuscitation Status: Full Code - Transfer Diagnosis (1) Loculated pleural effusion Is this a current diagnosis for this admission?: Yes (2) Abdominal visceral abscess Is this a current diagnosis for this admission?: Yes (3) Pneumothorax, right Is this a current diagnosis for this admission?: Yes (4) Community acquired pneumonia Is this a current diagnosis for this admission?: Yes (5) Permanent atrial fibrillation Is this a current diagnosis for this admission?: Yes (6) Hemochromatosis Is this a current diagnosis for this admission?: Yes (7) Osteoarthritis of knees, bilateral Is this a current diagnosis for this admission?: Yes (8) Acute respiratory failure with hypoxia Is this a current diagnosis for this admission?: Yes - Transfer Medications Home Medications: Omeprazole 20 mg PO QPM 08/05/19 Sotalol HCl [Betapace] 120 mg PO BID 08/05/19 Brimonidine Tartrate/Timolol [Combigan 0.2%-0.5% Eye Drops] 1 drop OU BID 11/10/19 Diltiazem HCl [Cardizem 30 mg Tablet] 30 mg PO Q12 11/10/19 Tramadol HCl [Ultram 50 mg Tablet] 50 mg PO BIDP PRN 11/10/19 Oxycodone HCl/Acetaminophen [Percocet 5-325 mg Tablet] 1 tab PO BIDP PRN 05/13/20 Trimethoprim [Trimpex 100 Mg Tablet] 100 mg PO DAILY 05/13/20 Transfer Medications: Current Medications Acetaminophen (Tylenol 325 Mg Tablet) 650 mg PO Q4HP PRN PRN Reason: pain or fever Stop: 06/12/20 10:13 Last Admin: 05/28/20 09:56 Dose: 650 mg Documented by: Acetaminophen/Butalbital/Caffeine (Fioricet (50-325-40 Mg) Tablet) 1 tab PO Q8HP PRN PRN Reason: MIGRAINES Stop: 06/12/20 10:22 Last Admin: 05/18/20 09:01 Dose: 1 tab Documented by: Al Hydrox/Mg Hydrox/Simethicone (Maalox Plus Susp 30 Udcup) 30 ml PO Q4HP PRN PRN Reason: HEARTBURN Stop: 06/27/20 21:50 Last Admin: 05/29/20 22:06 Dose: 30 ml Documented by: Amoxicillin/Clavulanate Potassium (Augmentin 875-125 Tablet) 1 tab PO Q12 [facility] Stop: 06/06/20 21:59 Last Admin: 05/31/20 09:45 Dose: 1 tab Documented by: Bisacodyl (Dulcolax 5 Mg Tablet) 5 mg PO DAILYP PRN PRN Reason: CONSTIPATION Stop: 06/20/20 03:58 Brimonidine Tartrate (Alphagan 0.2% Oph Soln 5 Ml) 1 drop OU Q12 [facility] Stop: 06/15/20 21:59 Last Admin: 05/31/20 09:46 Dose: 1 drop Documented by: Dextrose (Dextrose Inj 50% Syringe (25 Gm/50 Ml)) 25 gm IV PRN PRN; Protocol PRN Reason: See Label Comments Stop: 06/25/20 07:22 Digoxin (Lanoxin 0.125 Mg Tablet) 0.125 mg PO DAILY [facility] Stop: 06/29/20 09:59 Last Admin: 05/31/20 09:45 Dose: 0.125 mg Documented by: Docusate Sodium (Colace 100 Mg Capsule) 100 mg PO BID [facility] Stop: 06/20/20 09:59 Last Admin: 05/31/20 17:25 Dose: Not Given Documented by: Enoxaparin Sodium (Lovenox Inj 100 Mg/1 Ml Disp.Syrin) 100 mg SUBCUT Q12 [facility] Stop: 06/30/20 21:59 Fluticasone/Vilanterol (Breo 100-25 Mcg Ellipta 14 Dose/Dpi) 1 inh IH DAILY [facility] Stop: 06/13/20 09:59 Last Admin: 05/31/20 09:46 Dose: Not Given Documented by: Glucagon (Glucagen Inj 1 Mg Vial) 1 mg SUBCUT PRN PRN; Protocol PRN Reason: Evaluate for BG < 70 Stop: 06/25/20 07:22 Glucose (Glutose 40% Gel 15 Gm Tube) 30 gm PO PRN PRN; Protocol PRN Reason: FOR BG < 50 IN ALERT PATIENT Stop: 06/25/20 07:22 Levalbuterol HCl (Xopenex Neb 1.25 Mg/3 Ml Ampul) 1.25 mg NEB RTQ6HP PRN PRN Reason: SHORTNESS OF BREATH Stop: 06/15/20 13:22 Last Admin: 05/27/20 20:40 Dose: 1.25 mg Documented by: Magnesium Oxide (Mag-Ox 400 Mg Tablet) 400 mg PO BID [facility] Stop: 06/18/20 09:59 Last Admin: 05/31/20 17:25 Dose: 400 mg Documented by: Melatonin (Melatonin 5 Mg Tablet) 5 mg PO QHS [facility] Stop: 06/12/20 21:59 Last Admin: 05/30/20 22:25 Dose: 5 mg Documented by: Ondansetron HCl (Zofran Inj/Pf 4 Mg/2 Ml Sdv) 4 mg IV Q4HP PRN PRN Reason: FOR NAUSEA/VOMITING Stop: 06/12/20 10:13 Last Admin: 05/31/20 03:03 Dose: 4 mg Documented by: Ondansetron HCl (Zofran Odt 4 Mg Tablet) 4 mg PO Q4HP PRN PRN Reason: FOR NAUSEA/VOMITING Stop: 06/12/20 10:13 Last Admin: 05/30/20 06:54 Dose: 4 mg Documented by: Oxycodone/Acetaminophen (Percocet 5-325 Mg Tablet) 1 tab PO Q6HP PRN PRN Reason: PAIN Stop: 06/04/20 06:20 Last Admin: 05/31/20 13:13 Dose: 1 tab Documented by: Pantoprazole Sodium (Protonix [address] Tablet) 20 mg PO Q6AM [facility] Stop: 06/13/20 05:59 Last Admin: 05/31/20 05:21 Dose: 20 mg Documented by: Phenazopyridine HCl (Pyridium 200 Mg Tablet) 200 mg PO TIDP PRN PRN Reason: bladder pain Stop: 06/12/20 10:22 Last Admin: 05/25/20 22:25 Dose: 200 mg Documented by: Sotalol HCl (Betapace 80 Mg Tablet) 160 mg PO Q12 [facility] Stop: 06/13/20 21:59 Last Admin: 05/31/20 09:45 Dose: 160 mg Documented by: Timolol Maleate (Timoptic 0.5% Oph Soln 5 Ml) 1 drop OU Q12 [facility] Stop: 06/15/20 21:59 Last Admin: 05/31/20 09:45 Dose: 1 drop Documented by: - Allergies Allergies/Adverse Reactions: Sulfa (Sulfonamide Antibiotics) Allergy (Verified 08/05/19 07:53) [facility] Hospital Course Hospital Course: Initial HPI on admission KAMINI FERNANDEZ is a 70 year old female with past medical history significant for permanent A. fib, morbid obesity, COPD, LAKSHMI, choledocholithiasis who presents with a four-day history of progressive nausea/vomiting/shortness of breath/cough/ECHOLS/fevers which came on abruptly at patient's home. Most of the information for this history was obtained from the patient's son who lives with her as the patient is unable to speak clearly and effectively on the BiPAP currently. Patient and family deny any contacts with people under investigation or confirmed positive for COVID. Patient son states that he is out and about [facility] regularly but typically wears a mask. He does state patient also has a history of hemochromatosis but he does not know what she does to treat this. On admission, patient notable for elevated WBC, lymphopenia, sepsis, negative troponin, normal lipase, normal lactic acid. Chest x-ray showed right small pleural effusion with adjacent airspace opacity. Patient started on appropriate supplements for COVID-19 as well as Remdesivir. Patient requiring BiPAP on 30% oxygen on admission. Tachycardic in A. fib with RVR. Home medications including Xarelto restarted. Patient admitted to [facility] COVID unit. (1) Loculated pleural effusion Is this a current diagnosis for this admission?: Yes Plan: Complicated right parapneumonic with multiple loculations on CT. S/P TPA/Dornase augusto x 4 doses via chest tube. Chest tube has been removed after being present for over a week. Repeat CT still showing loculations to improved Unfortunately, Radiology was only able to get about 2cc of fluid but still notes septated pockets yesterday. Consulted CT surgery at [facility] was accepted patient for evaluation for VATS (2) Abdominal visceral abscess Is this a current diagnosis for this admission?: Yes Plan: Small abscess noted adjacent to the right liver lobe. Radiology aspirated all of it which showed purulent substance from this region 05/30. Culture growing gram- negative lyla likely Klebsiella or E. coli. Awaiting identification. Continue Augmentin in the meantime. (3) Pneumothorax, right Is this a current diagnosis for this admission?: Yes Plan: Secondary to chest tube placement. Currently resolved. (4) Community acquired pneumonia Qualifiers: Laterality: right Lung location: lower lobe of lung Qualified Code(s): J18.9 - Pneumonia, unspecified organism Is this a current diagnosis for this admission?: Yes Completed treatment for pneumonia. COVID-19 test was negative. (5) Permanent atrial fibrillation Is this a current diagnosis for this admission?: Yes Plan: Sotalol and digoxin. Xarelto remains on hold. I will substitute for Lovenox therapeutic dose while awaiting to see if any further surgical procedure will be needed. (6) Hemochromatosis Qualifiers: Hemochromatosis type: unspecified Qualified Code(s): E83.119 - Hemochromatosis, unspecified Is this a current diagnosis for this admission?: Yes Patient has history of hemochromatosis and does have hepatomegaly. However currently abdominal CT shows significant improvement in fatty liver disease and iron saturation is actually not high at this point. (7) Osteoarthritis of knees, bilateral Qualifiers: Osteoarthritis type: primary Qualified Code(s): M17.0 - Bilateral primary osteoarthritis of knee Is this a current diagnosis for this admission?: Yes (8) Acute respiratory failure with hypoxia Is this a current diagnosis for this admission?: Yes Plan: Resolved. Doing well on room air. Physical Exam Vital Signs: Temp Pulse Resp BP Pulse Ox 97.3 F 89 18 110/60 99 05/31/20 08:42 05/31/20 14:00 05/31/20 07:42 05/31/20 07:42 05/31/20 07:42 Pulse Oximeter Nocturnal Start: 05/17/20 16:50 Freq: RTQ4 Status: Complete Protocol: Document 05/18/20 05:07 [facility] (Rec: 05/18/20 05:55 [facility] [email or web address]) Nocturnal Pulse Oximetry Equipment Usage Equipment Discontinued Continuous SpO2 Machine # N-2 Intake & Output 05/30/20 05/31/20 06/01/20 06:59 06:59 06:59 Intake Total 1136 620 Output Total 800 650 Balance 336 -30 Weight 116.6 kg 115.5 kg General appearance: PRESENT: no acute distress, cooperative, morbidly obese Eye exam: PRESENT: EOMI Neck exam: ABSENT: JVD Respiratory exam: PRESENT: symmetrical, unlabored. ABSENT: accessory muscle use, retraction, tachypnea, wheezes Cardiovascular exam: PRESENT: RRR, +S1, +S2. ABSENT: tachycardia GI/Abdominal exam: PRESENT: hernia, soft. ABSENT: rebound, rigid, tenderness Extremities exam: ABSENT: calf tenderness Neurological exam: PRESENT: alert, awake, oriented to person, oriented to place, oriented to time Results Laboratory Results: 05/28/20 04:46 05/28/20 04:46 05/13/20 02:15 Troponin I < 0.012 Impressions: Chest Ultrasound 05/19/20 00:00 IMPRESSION: Loculated small right pleural effusion. Abdomen/Pelvis CT 05/19/20 13:00 IMPRESSION: Multiloculated right pleural effusion with right lower lobe airspace disease. Rim enhancing loculation of fluid in the posterior right costophrenic sulcus abutting the posterior right lobe liver Chest Fluoroscopy 05/21/20 00:00 IMPRESSION: IMAGE(S) OBTAINED DURING PROCEDURE. Chest CT 05/24/20 00:00 IMPRESSION: 1. Right hemithorax chest tube with diminished volume of a previously characterized right-sided pleural effusion which appears to be partially loculated. A tiny right apical pneumothorax is demonstrated. 2. Limited evaluation of the upper abdomen demonstrates a partially imaged fluid collection adjacent to the right hepatic lobe and the appearance of pneumobilia. Other chronic and incidental findings as detailed above. Retroperitoneal Abscess Drainage 05/30/20 00:00 IMPRESSION: CT GUIDED ABSCESS ASPIRATION PERFORMED ABOVE. NO IMMEDIATE COMPLICATIONS. Thoracentesis 05/30/20 00:00 IMPRESSION: ATTEMPTED ASPIRATION OF THE LOCULATED RIGHT PLEURAL EFFUSION WAS UNSUCCESSFUL. ONLY 2 ML OF FLUID COULD BE OBTAINED. Chest X-Ray 05/30/20 17:30 IMPRESSION: Stable right-sided hydropneumothorax. Plan Time Spent: Greater than 30 Minutes
[2020-05-31 20:24] VITALS: BP 106/50
[2020-05-31] MEDS: MELATONIN 5 MG TABLET PO SCH (21:16)
[2020-05-31] MEDS ORDERED: ENOXAPARIN SODIUM INJ 100 MG/1 ML DISP.SYRIN SUBCUT SCH (22:00)
== END 2020-05-31 21:51 | disposition short-term general hospital (02) | DRG 871 ==
LOC: ER 01:41 → EH 06:46 → ICU 21:35 → 3N 05-14 16:13 → 3W 05-15 12:36
PROVIDERS: ADMIT Internal Medicine; ATTEND Internal Medicine
PROC: 0W9930Z Drainage of Right Pleural Cavity with Drainage Device, Percutaneous Approach (ICD-10-PCS; principal; 2020-05-20)
PROC: 3E0L3GC Introduction of Other Therapeutic Substance into Pleural Cavity, Percutaneous Approach (ICD-10-PCS; 2020-05-20)
PROC: 0WP930Z Removal of Drainage Device from Right Pleural Cavity, Percutaneous Approach (ICD-10-PCS; 2020-05-21)
PROC: 0W9930Z Drainage of Right Pleural Cavity with Drainage Device, Percutaneous Approach (ICD-10-PCS; 2020-05-21)
PROC: 0WP930Z Removal of Drainage Device from Right Pleural Cavity, Percutaneous Approach (ICD-10-PCS; 2020-05-21)
PROC: 0W9930Z Drainage of Right Pleural Cavity with Drainage Device, Percutaneous Approach (ICD-10-PCS; 2020-05-21)
PROC: 0W993ZZ Drainage of Right Pleural Cavity, Percutaneous Approach (ICD-10-PCS; 2020-05-30)
PROC: 0W9G3ZX Drainage of Peritoneal Cavity, Percutaneous Approach, Diagnostic (ICD-10-PCS; 2020-05-30)
DX: A41.9 Sepsis, unspecified organism (principal); J18.9 Pneumonia, unspecified organism; J96.01 Acute respiratory failure with hypoxia; K65.1 Peritoneal abscess; J90 Pleural effusion, not elsewhere classified; I48.21 Permanent atrial fibrillation; J93.9 Pneumothorax, unspecified; T85.698A Other mechanical complication of other specified internal prosthetic devices, implants and grafts, initial encounter; R65.20 Severe sepsis without septic shock; G47.33 Obstructive sleep apnea (adult) (pediatric); E66.01 Morbid (severe) obesity due to excess calories; B96.20 Unspecified Escherichia coli [E. coli] as the cause of diseases classified elsewhere; E83.119 Hemochromatosis, unspecified; M17.0 Bilateral primary osteoarthritis of knee; Z20.828 Contact with and (suspected) exposure to other viral communicable diseases; J44.9 Chronic obstructive pulmonary disease, unspecified; Z87.891 Personal history of nicotine dependence; Z88.2 Allergy status to sulfonamides
CPT/HCPCS: 00520; 32555; 36415; 49406; 51701; 71045; 71046; 71250; 71260; 74177; 76604; 80048; 80053; 80162; 81001; 82042; 82607; 82728; 82746; 82803; 82945; 83540; 83550; 83605; 83615; 83690; 83735; 83986; 84100; 84132; 84155; 84157; 84484; 85025; 85027; 85045; 85379; 85610; 85730; 87040; 87070; 87075; 87077; 87186; 87205; 87635; 87804; 89050; 93005; 93010; 94640; 94660; 94762; 94799; 96361; 96365; 96375; 96376; 99140; 99285; C9803; J0456; J0696; J1100; J1160; J1644; J1650; J1940; J2060; J2250; J2270; J2405; J2704; J2997; J3010; J3475; J3490; J7030; J7060; J7120; J7614; S0119

== ENCOUNTER 2020-07-21 04:56 | Emergency (ER) | payer MEDICARE, MEDICAID ==
[2020-07-21] MEDS ORDERED: LEVOFLOXACIN 750 MG/D5W RTU 750 MG/150 ML RTUPB IV ONE (05:16)
[2020-07-21] MEDS ORDERED: VANCOMYCIN HCL INJ 1000 MG VIAL IV ONE ×2 (05:16→07:45)
[2020-07-21] MEDS ORDERED: IPRATROPIUM/ALBUTEROL 0.5-2.5 MG/3 ML AMPUL NEB ONE (05:18)
--- NOTE | 2020-07-21 05:18 | ER Document Report ---
ED General - General Stated Complaint: DIFFICULTY BREATHING Primary Care Provider: CLAUDIO NEGRON MD [NO LOCAL MD] - Follow up as needed Mode of Arrival: Medic Information source: Patient, Emergency Med Personnel Notes: LAST ER VISIT Attending Provider: JUDY MOONEY Date: 05/31/20 18:57 Initialization Date: 05/31/20 18:57 General Admission Date/PCP: 05/13/20 06:46 KAITLIN NEGRON MD Admission Date: 05/13/20 Transfer Date: 05/31/20 Accepting Facility: [facility] Accepting Physician: Dr. Butch Leo Resuscitation Status: Full Code - Transfer Diagnosis (1) Loculated pleural effusion Is this a current diagnosis for this admission?: Yes (2) Abdominal visceral abscess Is this a current diagnosis for this admission?: Yes (3) Pneumothorax, right Is this a current diagnosis for this admission?: Yes (4) Community acquired pneumonia Is this a current diagnosis for this admission?: Yes (5) Permanent atrial fibrillation Is this a current diagnosis for this admission?: Yes (6) Hemochromatosis Is this a current diagnosis for this admission?: Yes (7) Osteoarthritis of knees, bilateral Is this a current diagnosis for this admission?: Yes (8) Acute respiratory failure with hypoxia Is this a current diagnosis for this admission?: Yes - Transfer Medications Home Medications: Omeprazole 20 mg PO QPM 08/05/19 Sotalol HCl [Betapace] 120 mg PO BID 08/05/19 Brimonidine Tartrate/Timolol [Combigan 0.2%-0.5% Eye Drops] 1 drop OU BID 11/10/19 Diltiazem HCl [Cardizem 30 mg Tablet] 30 mg PO Q12 11/10/19 Tramadol HCl [Ultram 50 mg Tablet] 50 mg PO BIDP PRN 11/10/19 Oxycodone HCl/Acetaminophen [Percocet 5-325 mg Tablet] 1 tab PO BIDP PRN 05/13/20 Trimethoprim [Trimpex 100 Mg Tablet] 100 mg PO DAILY 05/13/20 Transfer Medications: Current Medications Acetaminophen (Tylenol 325 Mg Tablet) 650 mg PO Q4HP PRN PRN Reason: pain or fever Stop: 06/12/20 10:13 Last Admin: 05/28/20 09:56 Dose: 650 mg Documented by: Acetaminophen/Butalbital/Caffeine (Fioricet (50-325-40 Mg) Tablet) 1 tab PO Q8HP PRN PRN Reason: MIGRAINES Stop: 06/12/20 10:22 Last Admin: 05/18/20 09:01 Dose: 1 tab Documented by: Al Hydrox/Mg Hydrox/Simethicone (Maalox Plus Susp 30 Udcup) 30 ml PO Q4HP PRN PRN Reason: HEARTBURN Stop: 06/27/20 21:50 Last Admin: 05/29/20 22:06 Dose: 30 ml Documented by: Amoxicillin/Clavulanate Potassium (Augmentin 875-125 Tablet) 1 tab PO Q12 [facility] Stop: 06/06/20 21:59 Last Admin: 05/31/20 09:45 Dose: 1 tab Documented by: Bisacodyl (Dulcolax 5 Mg Tablet) 5 mg PO DAILYP PRN PRN Reason: CONSTIPATION Stop: 06/20/20 03:58 Brimonidine Tartrate (Alphagan 0.2% Oph Soln 5 Ml) 1 drop OU Q12 [facility] Stop: 06/15/20 21:59 Last Admin: 05/31/20 09:46 Dose: 1 drop Documented by: Dextrose (Dextrose Inj 50% Syringe (25 Gm/50 Ml)) 25 gm IV PRN PRN; Protocol PRN Reason: See Label Comments Stop: 06/25/20 07:22 Digoxin (Lanoxin 0.125 Mg Tablet) 0.125 mg PO DAILY [facility] Stop: 06/29/20 09:59 Last Admin: 05/31/20 09:45 Dose: 0.125 mg Documented by: Docusate Sodium (Colace 100 Mg Capsule) 100 mg PO BID [facility] Stop: 06/20/20 09:59 Last Admin: 05/31/20 17:25 Dose: Not Given Documented by: Enoxaparin Sodium (Lovenox Inj 100 Mg/1 Ml Disp.Syrin) 100 mg SUBCUT Q12 [facility] Stop: 06/30/20 21:59 Fluticasone/Vilanterol (Breo 100-25 Mcg Ellipta 14 Dose/Dpi) 1 inh IH DAILY [facility] Stop: 06/13/20 09:59 Last Admin: 05/31/20 09:46 Dose: Not Given Documented by: Glucagon (Glucagen Inj 1 Mg Vial) 1 mg SUBCUT PRN PRN; Protocol PRN Reason: Evaluate for BG < 70 Stop: 06/25/20 07:22 Glucose (Glutose 40% Gel 15 Gm Tube) 30 gm PO PRN PRN; Protocol PRN Reason: FOR BG < 50 IN ALERT PATIENT Stop: 06/25/20 07:22 Levalbuterol HCl (Xopenex Neb 1.25 Mg/3 Ml Ampul) 1.25 mg NEB RTQ6HP PRN PRN Reason: SHORTNESS OF BREATH Stop: 06/15/20 13:22 Last Admin: 05/27/20 20:40 Dose: 1.25 mg Documented by: Magnesium Oxide (Mag-Ox 400 Mg Tablet) 400 mg PO BID [facility] Stop: 06/18/20 09:59 Last Admin: 05/31/20 17:25 Dose: 400 mg Documented by: Melatonin (Melatonin 5 Mg Tablet) 5 mg PO QHS [facility] Stop: 06/12/20 21:59 Last Admin: 05/30/20 22:25 Dose: 5 mg Documented by: Ondansetron HCl (Zofran Inj/Pf 4 Mg/2 Ml Sdv) 4 mg IV Q4HP PRN PRN Reason: FOR NAUSEA/VOMITING Stop: 06/12/20 10:13 Last Admin: 05/31/20 03:03 Dose: 4 mg Documented by: Ondansetron HCl (Zofran Odt 4 Mg Tablet) 4 mg PO Q4HP PRN PRN Reason: FOR NAUSEA/VOMITING Stop: 06/12/20 10:13 Last Admin: 05/30/20 06:54 Dose: 4 mg Documented by: Oxycodone/Acetaminophen (Percocet 5-325 Mg Tablet) 1 tab PO Q6HP PRN PRN Reason: PAIN Stop: 06/04/20 06:20 Last Admin: 05/31/20 13:13 Dose: 1 tab Documented by: Pantoprazole Sodium (Protonix [address] Tablet) 20 mg PO Q6AM [facility] Stop: 06/13/20 05:59 Last Admin: 05/31/20 05:21 Dose: 20 mg Documented by: Phenazopyridine HCl (Pyridium 200 Mg Tablet) 200 mg PO TIDP PRN PRN Reason: bladder pain Stop: 06/12/20 10:22 Last Admin: 05/25/20 22:25 Dose: 200 mg Documented by: Sotalol HCl (Betapace 80 Mg Tablet) 160 mg PO Q12 [facility] Stop: 06/13/20 21:59 Last Admin: 05/31/20 09:45 Dose: 160 mg Documented by: Timolol Maleate (Timoptic 0.5% Oph Soln 5 Ml) 1 drop OU Q12 [facility] Stop: 06/15/20 21:59 Last Admin: 05/31/20 09:45 Dose: 1 drop Documented by: - Allergies Allergies/Adverse Reactions: Sulfa (Sulfonamide Antibiotics) Allergy (Verified 08/05/19 07:53) RASH Hospital Course Hospital Course: Initial HPI on admission KAMINI FERNANDEZ is a 70 year old female with past medical history significant for permanent A. fib, morbid obesity, COPD, LAKSHMI, choledocholithiasis who presents with a four-day history of progressive nausea/vomiting/shortness of breath/cough/ECHOLS/fevers which came on abruptly at patient's home. Most of the information for this history was obtained from the patient's son who lives with her as the patient is unable to speak clearly and effectively on the BiPAP currently. Patient and family deny any contacts with people under investigation or confirmed positive for COVID. Patient son states that he is out and about around town regularly but typically wears a mask. He does state patient also has a history of hemochromatosis but he does not know what she does to treat this. On admission, patient notable for elevated WBC, lymphopenia, sepsis, negative troponin, normal lipase, normal lactic acid. Chest x-ray showed right small pleural effusion with adjacent airspace opacity. Patient started on appropriate supplements for COVID-19 as well as Remdesivir. Patient requiring BiPAP on 30% oxygen on admission. Tachycardic in A. fib with RVR. Home medications including Xarelto restarted. Patient admitted to [facility] COVID unit. 07/21/20 05:14 - ED Nursing Note by JOVANNA ELLIS Acct Num: [id number] : 1950 Patient Age: 70 Addendum entered by JOVANNA ELLIS RN 07/21/20 05:15: room air. Pt placed on 2 L sats 95%. Pt has audible rhonci and wet cough. Pt COVID negative per EMS. Pt placed on monitor. Original Note: pt arrived via EMS for c/o of pneumonia that was diagnosed 2 weeks ago. Pt states she completed her course of antibiotics but still feels unwell. Per EMS patients sat was 89% on rooma Initialized on 07/21/20 05:14 - END OF NOTE MY NOTES THIS AM 21 JUL 2020 70-year-old female arrives by EMS after she felt weak with fast heart rate and acute cough. Patient reports she was seen here at this hospital in April with Dr. Joel and admitted for hydropneumothorax and then was transferred to [facility] where she stayed several weeks and then was transferred to [place] where she stayed for 3 weeks. She reports she has been home now for around 3 weeks and doing fairly well. For the last 4 days she developed a abscess to her abdomen approximately 4 cm in diameter. She also thinks he may have a urinary tract infection. Patient advises she been having some dysuria. She denies being on any current antibiotics. TRAVEL OUTSIDE OF THE [place] IN LAST 30 DAYS: No - HPI Onset: This morning Onset/Duration: Sudden Quality of pain: Achy Severity: Moderate Pain Level: 3 - Related Data Allergies/Adverse Reactions: Sulfa (Sulfonamide Antibiotics) Allergy (Verified 08/05/19 07:53) RASH Home Medications: Xarelto. Oxycodone-Acetaminophen. Tramadol. Trimethoprim. Sotalol Past Medical History - General Information source: Patient, Emergency Med Personnel - Social History Smoking Status: Never Smoker - But her father smokes cigarettes when she was little girl and her smoked cigarettes up until he in 2017 from lung disease and smoking. Cigarette use (# per day): No Chew tobacco use (# tins/day): No Smoking Education Provided: No Frequency of alcohol use: None Drug Abuse: None Lives with: Family Family History: Reviewed & Not Pertinent, Malignancy Patient has suicidal ideation: No Patient has homicidal ideation: No - Past Medical History Cardiac Medical History: Reports: Hx Atrial Fibrillation, Hx Hypertension Denies: Hx Heart Attack Pulmonary Medical History: Reports: Hx COPD, Hx Sleep Apnea Denies: Hx Asthma Neurological Medical History: Denies: Hx Cerebrovascular Accident, Hx Seizures GI Medical History: Reports: Hx Hiatal Hernia. Denies: Hx Hepatitis, Hx Ulcer Psychiatric Medical History: Denies: Hx Depression Infectious Medical History: Denies: Hx Hepatitis Past Surgical History: Reports: Hx Herniorrhaphy, Hx Hysterectomy, Hx Kidney (Re nal Surgery). Denies: Hx Mastectomy, Hx Open Heart Surgery, Hx Pacemaker - Immunizations Hx Diphtheria, Pertussis, Tetanus Vaccination: Yes Review of Systems - Review of Systems Constitutional: See HPI, Weakness EENT: No symptoms reported Cardiovascular: No symptoms reported Respiratory: See HPI, Cough, Wheezing Gastrointestinal: No symptoms reported Genitourinary: No symptoms reported Female Genitourinary: No symptoms reported Musculoskeletal: No symptoms reported Skin: See HPI, Lesions - Of surgical incision midline approximately 4 cm diameter Hematologic/Lymphatic: No symptoms reported Neurological/Psychological: See HPI, Weakness Physical Exam - Vital signs Vitals: Pulse Ox 98 07/21/20 04:59 Interpretation: Tachycardic, Hypoxic - General General appearance: Appears well, Alert - HEENT Head: Normocephalic, Atraumatic Eyes: Normal Pupils: PERRL - Respiratory Respiratory status: Respiratory distress, Labored, Tachypnea Chest status: Nontender Breath sounds: Rales, Wheezing Chest palpation: Normal - Cardiovascular Rhythm: Regular Heart sounds: Normal auscultation Murmur: No - Abdominal Inspection: Normal Distension: No distension Bowel sounds: Normal Tenderness: Nontender Organomegaly: No organomegaly - Rectal Hemorrhoids: Other - Deferred - Genitourinary Bimanuel exam: Other - Deferred - Back Back: Normal, Nontender - Extremities General upper extremity: Normal inspection, Nontender, Normal color, Normal ROM, Normal temperature General lower extremity: Normal inspection, Nontender, Normal color, Normal ROM, Normal temperature, Normal weight bearing. No: Jet's sign - Neurological Neuro grossly intact: Yes Cognition: Normal Orientation: AAOx4 [place] Coma Scale Eye Opening: Spontaneous Alexi Coma Scale Verbal: Oriented Alexi Coma Scale Motor: Obeys Commands Alexi Coma Scale Total: 15 Speech: Normal Motor strength normal: LUE, RUE, LLE, RLE Sensory: Normal - Psychological Associated symptoms: Normal affect, Normal mood - Skin Skin Temperature: Warm Skin Moisture: Dry Skin Color: Normal Course - Vital Signs Vital signs: Temp Pulse Resp BP Pulse Ox 98.1 F 20 125/69 100 07/21/20 05:00 07/21/20 05:01 07/21/20 05:00 07/21/20 05:01 - Laboratory Result Diagrams: 07/21/20 05:37 07/21/20 05:37 Laboratory results interpreted by me: 07/21/20 05:37 Hgb 10.3 L Hct 32.7 L MCV 79 L MCH 24.9 L MCHC 31.5 L RDW 18.6 H - Diagnostic Test Radiology reviewed: Reports reviewed - Portable chest x-ray with no obvious pleural effusion or pneumonia infiltrates noted. Cardiomegaly positive and COPD. - EKG Interpretation by Me EKG shows normal: Sinus rhythm Rate: Normal Rhythm: NSR - 89 beats per per minute with sinus rhythm and no obvious PVCs and no obvious ST depression or ST elevation or T wave depression. Patient has low voltage throughout and this was read by myself and also I agree with the EKG machine. Discharge - Discharge Clinical Impression: Abscess of skin Qualifiers: Site of cutaneous abscess: other site Qualified Code(s): L02.818 - Cutaneous abscess of other sites UTI (urinary tract infection) Qualifiers: Urinary tract infection type: acute cystitis Hematuria presence: without hematuria Qualified Code(s): N30.00 - Acute cystitis without hematuria RAD (reactive airway disease) with wheezing Qualifiers: Asthma severity: moderate Asthma persistence: persistent Asthma complication type: with acute exacerbation Qualified Code(s): J45.41 - Moderate persistent asthma with (acute) exacerbation Condition: Stable Disposition: HOME, SELF-CARE Additional Instructions: Follow-up with personal doctor Dr. Joel return to ER as needed encourage fluids take medicines as directed Prescriptions: Benzonatate [Tessalon Perles 100 mg Capsule] 100 mg PO Q8HP PRN #40 capsule PRN Reason: Levofloxacin [Levaquin 500 mg Tablet] 500 mg PO DAILY #10 tablet Referrals: CLAUDIO NEGRON MD [NO LOCAL MD] - Follow up as needed
[2020-07-21 05:47] LABS: ABSOLUTE EOSINOPHILS # (AUTO) 0.1 10^3/uL (0.0-0.6); ABSOLUTE LYMPHOCYTES (AUTO) 1.7 10^3/uL (0.5-4.7); ABSOLUTE MONOCYTES (AUTO) 0.6 10^3/uL (0.1-1.4); ABSOLUTE NEUT (AUTO) 2.9 10^3/uL (1.7-8.2); BASOPHILS % (AUTO) 0.9 % (0-2); EOSINOPHILS % (AUTO) 1.4 % (0-6); HEMATOCRIT 32.7 % (36.0-47.0); HEMOGLOBIN 10.3 g/dL (12.0-15.5); LYMPHOCYTES % (AUTO) 31.9 % (13-45); MEAN CORPUSCULAR HEMOGLOBIN 24.9 pg (27.0-33.4); MEAN CORPUSCULAR HGB CONC 31.5 g/dL (32.0-36.0); MEAN CORPUSCULAR VOLUME 79 fl (80-97); MONOCYTES % (AUTO) 11.5 % (3-13); PLATELET COUNT 303 10^3/uL (150-450); RED BLOOD COUNT 4.15 10^6/uL (3.72-5.28); RED CELL DISTRIBUTION WIDTH 18.6 % (11.5-14.0); SEGMENTED NEUTROPHILS % (AUTO) 54.3 % (42-78); TOTAL CELLS COUNTED % (AUTO) 100 %; WHITE BLOOD COUNT 5.3 10^3/uL (4.0-10.5)
[2020-07-21 06:14] LABS: APPEARANCE,URINE SLIGHTLY-CLOUDY; BILIRUBIN,URINE NEGATIVE (NEGATIVE); COLOR,URINE YELLOW; GLUCOSE, URINE NEGATIVE (NEGATIVE); KETONES,URINE NEGATIVE (NEGATIVE); LEUKOCYTE ESTERASE,URINE LARGE (NEGATIVE); NITRITE,URINE POSITIVE (NEGATIVE); PROTEIN,URINE NEGATIVE (NEGATIVE); URINE SPECIFIC GRAVITY 1.014; UROBILINOGEN,URINE NEGATIVE mg/dL (<2.0)
[2020-07-21 06:20] LABS: ALBUMIN 3.2 g/dL (3.5-5.0); ALKALINE PHOSPHATASE 72 U/L (38-126); ANION GAP 5 (5-19); ASPARTATE AMINO TRANSFERASE 47 U/L (14-36); BILIRUBIN,DIRECT 0.2 mg/dL (0.0-0.4); BILIRUBIN,TOTAL 0.6 mg/dL (0.2-1.3); BLOOD UREA NITROGEN 5 mg/dL (7-20); CALCIUM 9.3 mg/dL (8.4-10.2); CARBON DIOXIDE 31 mmol/L (22-30); CHLORIDE 101 mmol/L (98-107); GLUCOSE 84 mg/dL (75-110); POTASSIUM 4.2 mmol/L (3.6-5.0); TOTAL PROTEIN 6.2 g/dL (6.3-8.2)
--- NOTE | 2020-07-21 06:35 | RADIOLOGY REPORT (SQ) ---
EXAM DESCRIPTION: X-ray single view chest. CLINICAL HISTORY: 70 years Female, cough, shortness of breath COMPARISON: Chest x-ray performed on 05/30/2020 and 05/28/[address] performed on 05/25/2020. TECHNIQUE: Single portable x-ray view of the chest performed on 07/21/2020 at 5:23 AM FINDINGS: The lungs are well-expanded. There is mild residual pleural parenchymal scarring or atelectasis in the right inferior hemithorax. The lateral costophrenic sulci are grossly clear. There is no evidence of a pneumothorax. The cardiac silhouette is normal in size and configuration. The mediastinal contours are normal. No acute osseous abnormality is identified. No focal soft tissue abnormalities are seen. Lines and tubes: None. IMPRESSION: 1. No definite acute intrathoracic disease. 2. Mild residual pleural parenchymal scarring or atelectasis in the right inferior hemithorax
[2020-07-21] MEDS ORDERED: OXYCODONE-ACETAMINOPHEN 5-325 MG TABLET PO ONE (07:36)
--- NOTE | 2020-07-21 07:38 | ER Document Report ---
Doctor's Note Notes: 07/21/20 07:37 Patient was signed out to me by Dr. Benita Hung this morning. He was waiting on a digoxin level which came back undetectable, but reviewing records I find that she received digoxin briefly while she was hospitalized, but was not discharged on that medication. Her urinalysis did show urinary tract infection, however he had already started her on Levaquin for her cutaneous abscess. The urine was cultured. I turned the patient's oxygen off and she is maintaining an oxygen saturation of 99% on room air. She is requesting her pain medication because she has not had it this morning. She will be given 1 dose of Percocet and discharged.
[2020-07-21 10:04] VITALS: BP 110/46
--- NOTE | 2020-07-21 11:12 | EKG REPORT ---
SEVERITY:- BORDERLINE ECG - SINUS RHYTHM LOW VOLTAGE THROUGHOUT BORDERLINE T ABNORMALITIES, DIFFUSE LEADS : Confirmed by: Vish Farmer MD 21-Jul-2020 11:12:16
== END 2020-07-21 10:04 | disposition home or self-care (01) ==
LOC: ER 04:56
DX: J45.21 Mild intermittent asthma with (acute) exacerbation (principal); N30.00 Acute cystitis without hematuria; L02.211 Cutaneous abscess of abdominal wall; J44.9 Chronic obstructive pulmonary disease, unspecified; R05 Cough; R00.0 Tachycardia, unspecified; R53.1 Weakness; I11.9 Hypertensive heart disease without heart failure; I48.21 Permanent atrial fibrillation; Z79.899 Other long term (current) drug therapy; Z79.01 Long term (current) use of anticoagulants; Z88.2 Allergy status to sulfonamides; Z88.6 Allergy status to analgesic agent; Z88.5 Allergy status to narcotic agent; Z77.22 Contact with and (suspected) exposure to environmental tobacco smoke (acute) (chronic)
CPT/HCPCS: 93005; 94640; 99285; 96365; 96366; 96368; 36415; 87040; 87086; 87070; 87205; 80162; 85025; 87075; 87077; 87088; 80053; 81001; 87186; 71045; 93010; A9270; J3370; J1956